=== PATIENT | female | born 1935 | race Caucasian/White ===

== ENCOUNTER → 2016-04-25 | Outpatient (CLI) | payer OTHER ==
[~2016-04-25] MED LIST: GEMF600T3 PO; INSDGI SC; INSU1INJ SC; KFLUNK PO; LRTUNK PO; MELO7.5T5 PO; MULT-506 PO; OLME40TA30 PO; OMEG10007 PO
[2016-04-25 09:43] LABS: HEMATOCRIT 36.6 % (37-47); MEAN CELL VOLUME 96.6 fL (80-100); MEAN CORPUSCULAR HEMOGLOBIN 31.9 pg (25-34); MEAN CORPUSCULAR HGB CONC 33.1 g/dl (32-36); MEAN PLATELET VOLUME 11.9 fL (7.4-10.4); PLATELET COUNT 131 K/uL (130-400); RED BLOOD COUNT 3.79 M/uL (4.2-5.4)
[2016-04-25 09:48] LABS: URINE APPEARANCE CLOUDY (CLEAR); URINE BILIRUBIN NEG (NEG); URINE COLOR YELLOW; URINE EPITHELIAL CELL AUTO >30 /lpf (0-5); URINE NITRITE POS (NEG); URINE SPECIFIC GRAVITY 1.015 (1.000-1.030); UROBILINOGEN NEG (NEG)
[2016-04-25 09:51] LABS: MANUAL MICROSCOPIC REQUIRED? NO; REVIEW REQ? YES
[2016-04-25 10:20] LABS: BLOOD UREA NITROGEN 31 mg/dl (7-18); BUN/CREATININE RATIO 16.3 (10-20); CALCIUM 9.5 mg/dl (8.5-10.1); CARBON DIOXIDE 23 mmol/L (21-32); CHLORIDE 109 mmol/L (98-107); GLUCOSE 94 mg/dl (70-99); POTASSIUM 4.8 mmol/L (3.5-5.1); SODIUM 142 mmol/L (136-145)
[2016-04-25 10:21] LABS: PHOSPHORUS 3.6 mg/dl (2.5-4.9)
[2016-04-25 10:25] LABS: URINE PROTIEN/CREAT RATIO 0.1 (0-0.2); URINE TOTAL PROTEIN 18.8 mg/dl (0-11.9)
== END | disposition home or self-care (01) ==
LOC: C.LAB1850 08:34
PROVIDERS: ATTEND Internal Medicine Nephrology
DX: I10 Essential (primary) hypertension (principal); N18.3 Chronic kidney disease, stage 3 (moderate); R80.9 Proteinuria, unspecified; D64.9 Anemia, unspecified; R60.9 Edema, unspecified

== ENCOUNTER → 2016-10-24 | Outpatient (CLI) | payer OTHER ==
[2016-10-24 09:33] LABS: HEMATOCRIT 38.7 % (37-47); MEAN CELL VOLUME 97.7 fL (80-100); MEAN CORPUSCULAR HEMOGLOBIN 31.8 pg (25-34); MEAN CORPUSCULAR HGB CONC 32.6 g/dl (32-36); MEAN PLATELET VOLUME 11.9 fL (7.4-10.4); PLATELET COUNT 142 K/uL (130-400); RED BLOOD COUNT 3.96 M/uL (4.2-5.4); WHITE BLOOD COUNT 5.47 K/uL (4.8-10.8)
[2016-10-24 09:46] LABS: MANUAL MICROSCOPIC REQUIRED? YES; URINE APPEARANCE SL CLOUDY (CLEAR); URINE BILIRUBIN NEG (NEG); URINE COLOR YELLOW; URINE NITRITE POS (NEG); URINE SPECIFIC GRAVITY 1.025 (1.000-1.030); UROBILINOGEN NEG (NEG)
[2016-10-24 09:49] LABS: REVIEW REQ? NO
[2016-10-24 09:51] LABS: ESTIMATED AVERAGE GLUCOSE 128 mg/dl; HA1C FLAG Normal (Normal)
[2016-10-24 09:59] LABS: URINE PROTIEN/CREAT RATIO 0.2 (0-0.2); URINE TOTAL PROTEIN 29.3 mg/dl (0-11.9)
[2016-10-24 10:28] LABS: ALT/SGPT 34 U/L (12-78); AST/SGOT 29 U/L (15-37); BLOOD UREA NITROGEN 37 mg/dl (7-18); BUN/CREATININE RATIO 21.5 (10-20); CALCIUM 9.7 mg/dl (8.5-10.1); CARBON DIOXIDE 23 mmol/L (21-32); CHLORIDE 110 mmol/L (98-107); GLUCOSE 103 mg/dl (70-99); POTASSIUM 4.9 mmol/L (3.5-5.1); SODIUM 141 mmol/L (136-145)
[2016-10-24 10:38] LABS: URINE WBC >30 /hpf (0-5)
[2016-10-24 10:39] LABS: URINE BACTERIA 4+ (NEG)
[2016-10-24 10:40] LABS: CHOLESTEROL 163 mg/dl (0-200); CHOLESTEROL/HDL RATIO 4.8; HDL CHOLESTEROL 34 mg/dl; LDL CHOLESTEROL CALCULATED 73 mg/dl; PHOSPHORUS 4.5 mg/dl (2.5-4.9); TRIGLYCERIDES 278 mg/dl (0-150); VERY LOW DENSITY LIPOPROT CALC 56 mg/dl
== END | disposition home or self-care (01) ==
LOC: C.LAB1850 07:29
PROVIDERS: ATTEND Internal Medicine Nephrology
DX: E78.5 Hyperlipidemia, unspecified (principal); E11.9 Type 2 diabetes mellitus without complications; E03.9 Hypothyroidism, unspecified; N18.3 Chronic kidney disease, stage 3 (moderate); I12.9 Hypertensive chronic kidney disease with stage 1 through stage 4 chronic kidney disease, or unspecified chronic kidney disease; D64.9 Anemia, unspecified; R60.9 Edema, unspecified; E55.9 Vitamin D deficiency, unspecified

== ENCOUNTER → 2017-03-04 | Outpatient (CLI) | payer OTHER ==
--- NOTE | 2017-03-04 15:13 | MAMMOGRAPHY REPORT ---
UNILATERAL LEFT DIGITAL SCREENING MAMMOGRAM TOMOSYNTHESIS WITH CAD: 03/04/2017 CLINICAL HISTORY: Asymptomatic. Personal history of breast cancer. Post right mastectomy. TECHNIQUE: Left breast tomosynthesis in addition to standard 2D mammography was performed. Current st udy was also evaluated with a Computer Aided Detection (CAD) system. COMPARISON: Comparison is made to exams dated: 02/27/2016 mammogram, 02/23/2015 mammogram, 4 mammogram, 02/19/2013 mammogram, 02/19/2012 mammogram, and 02/13/2011 mammogram - [facility]. BREAST COMPOSITION: There are scattered areas of fibroglandular density in the left breast. FINDINGS: There are stable benign-appearing round and punctate microcalcifications in the left breas t. Stable nodularity in the lateral breast. No new suspicious mass, architectural distortion or clus ter of microcalcifications is seen. IMPRESSION: ACR BI-RADS CATEGORY 2: BENIGN There is no mammographic evidence of malignancy. A 1 year screening mammogram is recommended. The pa tient will receive written notification of the results. Approximately 10% of breast cancers are not detected with mammography. A negative mammographic report should not delay biopsy if a clinically suggestive mass is present. Gema Nelson M.D. ay/:03/04/2017 12:15:49 Brazing Machine Feeder: Rhonda Leon M, [facility] letter sent: Normal 1/2 BI-RADS Code: ACR BI-RADS Category 2: Benign
== END | disposition home or self-care (01) ==
LOC: C.MAMM 10:16
PROVIDERS: ATTEND Internal Medicine
DX: Z12.31 Encounter for screening mammogram for malignant neoplasm of breast (principal); Z90.11 Acquired absence of right breast and nipple

== ENCOUNTER → 2017-04-25 | Outpatient (CLI) | payer OTHER ==
[2017-04-25 09:41] LABS: HEMATOCRIT 37.8 % (37-47); HEMOGLOBIN 12.5 g/dL (12.0-16.0); MEAN CELL VOLUME 96.2 fL (80-100); MEAN CORPUSCULAR HEMOGLOBIN 31.8 pg (25-34); MEAN CORPUSCULAR HGB CONC 33.1 g/dl (32-36); MEAN PLATELET VOLUME 11.9 fL (7.4-10.4); PLATELET COUNT 145 K/uL (130-400); RED CELL DISTRIBUTION WIDTH CV 13.2 % (11.5-14.5); RED CELL DISTRIBUTION WIDTH SD 46.1 fL (36.4-46.3); WHITE BLOOD COUNT 5.65 K/uL (4.8-10.8)
[2017-04-25 09:48] LABS: ALBUMIN 3.9 gm/dl (3.4-5.0); ALT/SGPT 38 U/L (12-78); AST/SGOT 35 U/L (15-37); BLOOD UREA NITROGEN 51 mg/dl (7-18); CALCIUM 9.5 mg/dl (8.5-10.1); CARBON DIOXIDE 23 mmol/L (21-32); CHOLESTEROL 168 mg/dl (0-200); GLUCOSE 67 mg/dl (70-99); POTASSIUM 4.5 mmol/L (3.5-5.1); SODIUM 137 mmol/L (136-145)
[2017-04-25 09:50] LABS: HEMOGLOBIN A1C 5.9 % (4.5-5.6)
[2017-04-25 09:58] LABS: LDL CHOLESTEROL CALCULATED 91 mg/dl; PHOSPHORUS 4.1 mg/dl (2.5-4.9)
== END | disposition home or self-care (01) ==
LOC: C.LAB1850 07:43
PROVIDERS: ATTEND Internal Medicine Nephrology
DX: I12.9 Hypertensive chronic kidney disease with stage 1 through stage 4 chronic kidney disease, or unspecified chronic kidney disease (principal); E11.22 Type 2 diabetes mellitus with diabetic chronic kidney disease; N18.3 Chronic kidney disease, stage 3 (moderate); D63.1 Anemia in chronic kidney disease; R60.9 Edema, unspecified; E55.9 Vitamin D deficiency, unspecified; E03.9 Hypothyroidism, unspecified; E78.5 Hyperlipidemia, unspecified

== ENCOUNTER → 2017-11-25 | Outpatient (CLI) | payer OTHER ==
[~2017-11-25] MED LIST changes: -GEMF600T3 PO; +GEMF600T5 PO
[2017-11-25 09:58] LABS: HEMOGLOBIN A1C 5.7 % (4.5-5.6)
[2017-11-25 09:59] LABS: ALBUMIN 3.4 gm/dl (3.4-5.0); BLOOD UREA NITROGEN 37 mg/dl (7-18); CALCIUM 9.3 mg/dl (8.5-10.1); CARBON DIOXIDE 21 mmol/L (21-32); CREATININE 1.89 mg/dl (0.60-1.20); GLUCOSE 101 mg/dl (70-99); PHOSPHORUS 3.8 mg/dl (2.5-4.9); POTASSIUM 5.6 mmol/L (3.5-5.1); SODIUM 140 mmol/L (136-145)
== END | disposition home or self-care (01) ==
LOC: C.LAB1850 07:34
PROVIDERS: ATTEND Internal Medicine Nephrology
DX: I10 Essential (primary) hypertension (principal); N18.3 Chronic kidney disease, stage 3 (moderate); D64.9 Anemia, unspecified; R60.9 Edema, unspecified; E55.9 Vitamin D deficiency, unspecified; E11.9 Type 2 diabetes mellitus without complications

== ENCOUNTER 2018-09-10 16:04 | Inpatient (IN) ==
[2018-09-10] MEDS ORDERED: ONDANSETRON INJ 2 MG/ML 2 ML VIAL IV STA (16:10)
[2018-09-10] MEDS ORDERED: SODIUM CHLORIDE 0.9% 500 ML IV SCH (16:15)
--- NOTE | 2018-09-10 16:29 | XRay Report ---
SINGLE VIEW CHEST CLINICAL HISTORY: Atypical chest pain. Upper abdominal pain. FINDINGS: An AP, portable, upright chest radiograph is compared to study dated 02/23/2018 and correla kate with chest CT dated 08/01/2006. The heart is enlarged. The pulmonary vasculature is noncongested. Airspace opacities are similar left lung base and likely represent atelectasis. The right lung appear s clear. No large pleural effusion or pneumothorax is seen. The skeletal structures are osteopenic. T he bony thorax is grossly intact. Degenerative change is noted in the thoracic spine. IMPRESSION: 1. Cardiomegaly without radiographic evidence of congestive failure. 2. Airspace opacities at the left lung base likely represent atelectasis. Clinical correlation will b e required. Electronically signed by: Geoffrey Hall M.D. 09/10/2018 4:27 PM
[2018-09-10] MEDS: MoRPHine SULFATE 4 MG/ML 1 ML CARP\\VIAL IV PRN ×3 (17:01→22:31)
[2018-09-10 17:05] LABS: Hematocrit (blood only) 35.2 % (37-47); Hemoglobin 11.5 g/dL (12.0-16.0); Mean Corpuscular Hgb Conc 32.7 g/dL (32-36); Mean Corpuscular Volume 95.7 fL (80-100); Mean Platelet Volume 10.8 fL (7.4-10.4); Platelet Count 150 K/uL (130-400); RDW Coefficient of Variation 13.4 % (11.5-14.5); RDW Standard Deviation 46.6 fL (36.4-46.3); Red Blood Count 3.68 M/uL (4.2-5.4); White Blood Count 8.52 K/uL (4.8-10.8)
[2018-09-10 17:19] LABS: INR 1.1 (0.9-1.1); Partial Thromboplastin Ratio 0.9; Partial Thromboplastin Time 24.5 Seconds (21.0-31.0); Prothrombin Time 11.4 Seconds (9.0-12.0)
[2018-09-10 17:24] LABS: Alanine Aminotransferase 54 U/L (12-78); Albumin Level 3.5 gm/dl (3.4-5.0); Aspartate Aminotransferase 150 U/L (15-37); Blood Urea Nitrogen 38 mg/dl (7-18); Calcium 9.6 mg/dl (8.5-10.1); Carbon Dioxide 26 mmol/L (21-32); Chloride 107 mmol/L (98-107); Creatinine Clr Calc Pharmacy 24.4 ml/min; Est GFR (African American) 24.8; Est GFR (Non-African American) 21.4; Glucose 108 mg/dl (70-99); Potassium 5.6 mmol/L (3.5-5.1); Sodium 140 mmol/L (136-145)
[2018-09-10 17:30] LABS: Basophils # (auto) 0.01 K/uL (0-0.2); Basophils % (auto) 0.1 %; Eosinophils # (auto) 0.02 K/uL (0-0.5); Eosinophils % (auto) 0.2 %; Immature Granulocytes # (auto) 0.02 K/uL (0.00-0.02); Immature Granulocytes % (auto) 0.2 %; Lymphocytes # (auto) 0.91 K/uL (1.2-3.4); Lymphocytes % (auto) 10.7 %; Monocytes # (auto) 0.21 K/uL (0.11-0.59); Monocytes % (auto) 2.5 %; Neutrophils # (auto) 7.35 K/uL (1.4-6.5); Neutrophils % (auto) 86.3 %
--- NOTE | 2018-09-10 17:35 | CT Scan Report ---
CT OF THE ABDOMEN AND PELVIS WITHOUT CONTRAST CLINICAL HISTORY: Upper abdominal pain. COMPARISON STUDY: CT of the abdomen November 30, 2009. TECHNIQUE: Axial images of the abdomen and pelvis were obtained without IV contrast. Images were revi ewed in the axial, sagittal, and coronal planes. Automated exposure control was utilized for the yaritza dy. A dose lowering technique was utilized adhering to the principles of ALARA. FINDINGS: The patient is status post right mastectomy. There is moderate cardiomegaly. No pneumatosis , free air or portal venous gas is present. Evaluation of the abdomen and pelvis is suboptimal on thi s unenhanced study. Unenhanced images of the liver, spleen and adrenal glands are unremarkable. There is no biliary or pancreatic ductal dilatation. There is moderate distention of the gallbladder witho ut pericholecystic infiltration. There is extensive peripancreatic infiltration and fluid which exten ds into the mesentery. No peripancreatic fluid collection is present. Evaluation of the pancreas is s uboptimal on this unenhanced study. No radiopaque stones within the gallbladder or common bile duct a re identified. The appendix is normal. There is no evidence for a bowel obstruction. 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 There i s atrophy of the visualized left thigh musculature. No lymphadenopathy is present. IMPRESSION: 1. Extensive peripancreatic infiltration and fluid consistent with acute pancreatitis. 2. Moderate distention of the gallbladder. No pericholecystic infiltration. No biliary ductal dilatat ion. Electronically signed by: Stanley Kwong M.D. 09/10/2018 5:34 PM
[2018-09-10] MEDS ORDERED: PIPERACILLIN/TAZOBACTAM 4.5 GM/120 ML BAG IV ONE (17:43)
[2018-09-10] MEDS ORDERED: SODIUM CHLORIDE 0.9% 1000ML 1,000 ML IV ONE (17:43)
[2018-09-10] MEDS ORDERED: PIPERACILL/TAZOBAC CONSULT ACTIVE PRN (17:43)
[2018-09-10 17:46] LABS: Albumin Globulin Ratio 0.9 (0.9-2); Alkaline Phosphatase 85 U/L (45-117); Bilirubin,Total 1.4 mg/dl (0.2-1); Globulin 3.9 gm/dl (2.5-4.0); Total Protein 7.4 gm/dl (6.4-8.2); Troponin I < 0.015 ng/ml (0-0.045)
[2018-09-10] MEDS ORDERED: FAMOTIDINE 20MG IV PUSH 20 MG/5 ML SYR IV STA (17:47)
--- NOTE | 2018-09-10 18:23 | Emergency Department Note ---
Entered by Margarita Andres acting as a scribe for Narinder Guzmán DO History of Present Illness General Chief complaint: Abdominal Pain Source: patient Limitations: no limitations History of Present Illness Onset (ago): hour(s) 5 Location: abdomen Severity: severe Pain Consistency: + constant Quality: + other ("blowing up") Associated symptoms: + denies other symptoms (new lower extremity rashes) Treatments prior to arrival: other ( Zofran and Fentanyl ) The patient is an 83 year old female who presents to the ED with complaints of severe abdominal pain that began at 1030 this morning, about 5 hours ago. She notes that the pain is constant. The patient described the pain as "blowing up." She denies any new lower extremity rashes. Per EMS, the patient was given Zofran and Fentanyl [employer]CH[employer]. She denies any history of SBO or abdominal surgery. Home Medications Home Medications Medication Instructions Recorded Confirmed Type Multi-Vitamin HP/Minerals 1 cap PO QAM 02/23/18 09/10/18 History cholecalciferol (vitamin D3) 2,000 unit PO 3XWK 02/23/18 09/10/18 History [Vitamin D3] gabapentin 200 mg PO HS 02/23/18 09/10/18 History gemfibrozil 600 mg PO QAM 02/23/18 09/10/18 History levothyroxine 75 mcg PO QAM 02/23/18 09/10/18 History olmesartan 40 mg PO QAM 02/23/18 09/10/18 History omega 5-zet-fjl-fish oil [Fish Oil] 1,000 mg PO QAM 02/23/18 09/10/18 History torsemide 10 mg PO QAM 02/23/18 09/10/18 History torsemide 20 mg PO QAM 02/23/18 09/10/18 History acetaminophen [Mapap 650 mg PO Q4H PRN #1 tab 02/26/18 09/10/18 Rx (acetaminophen)] aspirin [Aspirin Low Dose] 81 mg PO DAILY 09/10/18 09/10/18 History insulin NPH and regular human 60 unit SUBCUT BID 09/10/18 09/10/18 History [Novolin 70/30 U-100 Insulin] Allergies Allergy/AdvReac Type Severity Reaction Status Date / Time Sulfa (Sulfonamide Allergy Unknown BLISTERS Verified 09/10/18 17:40 Antibiotics) Past Med/Surg History Medical History Cellulitis of left lower extremity (Acute) Pancreatitis (Acute) Acute kidney injury Neuropathy Chronic kidney disease, stage IV (severe) Acute UTI (Acute) Sepsis (Acute) Chronic venous insufficiency Diabetes mellitus (Chronic) Hypertension Hypothyroidism (acquired) Hypertriglyceridemia Cellulitis of right upper extremity Cellulitis of left lower extremity Social History Preferred Language: Argentine Communication Ability: Effective Sock Lining Stitcher Required: No Beliefs That Will Affect Care: None marital status: Current Living Situation: Spouse Other Information That Helps Us Care for You: No Feels Safe at Home: Yes Safety Concerns: Feels Safe At This Time Smoking Status: Never smoker Do You Dip or Chew Tobacco: No Second Hand Exposure: No Tobacco Cessation Education Requested by Patient: No Hx Alcohol Use: No Hx Substance Use: No Review of Systems See HPI for pertinent positives & negatives. and A total of 10 systems reviewed and were otherwise negative Physical Exam Vital Signs Vital Signs - 24 hr 09/10/18 16:04 09/10/18 16:14 09/10/18 17:00 Temperature 36.5 C Temperature Source Oral Sepsis Recent Fever Within 48 Hours No Sepsis New/Unexplained Change in Mental Status No Sepsis Action Taken by Nursing No Action Required Pulse Rate 70 64 70 Pulse Rate [Left Apical] Pulse Rate from SpO2 Sensor 66 Pulse Rhythm Regular Regular Pulse Rhythm [Left Apical] Pulse Strength [Left Apical] Respiratory Rate 18 20 18 Respiratory Effort / Characteristics Non-Labored Spontaneous Respiratory Depth Normal Respiratory Pattern Regular Blood Pressure 157/60 H 157/60 H Blood Pressure [Left Arm] Blood Pressure Mean 92 92 Blood Pressure Mean [Left Arm] Blood Pressure Position [Left Arm] Pulse Oximetry 95 92 95 Oxygen Delivery Method Room Air Room Air Room Air 09/10/18 17:06 09/10/18 17:53 09/10/18 18:01 Temperature Temperature Source Sepsis Recent Fever Within 48 Hours Sepsis New/Unexplained Change in Mental Status Sepsis Action Taken by Nursing Pulse Rate 62 85 82 Pulse Rate [Left Apical] 85 Pulse Rate from SpO2 Sensor 64 Pulse Rhythm Pulse Rhythm [Left Apical] Regular Pulse Strength [Left Apical] Normal Respiratory Rate 17 22 20 Respiratory Effort / Characteristics Non-Labored Spontaneous Respiratory Depth Normal Respiratory Pattern Regular Blood Pressure 144/55 H 154/67 H 148/76 H Blood Pressure [Left Arm] 154/67 H Blood Pressure Mean 84 96 100 Blood Pressure Mean [Left Arm] 96 Blood Pressure Position [Left Arm] Lying Pulse Oximetry 92 95 95 Oxygen Delivery Method Room Air Room Air Room Air 09/10/18 18:31 Temperature Temperature Source Sepsis Recent Fever Within 48 Hours Sepsis New/Unexplained Change in Mental Status Sepsis Action Taken by Nursing Pulse Rate 71 Pulse Rate [Left Apical] Pulse Rate from SpO2 Sensor Pulse Rhythm Pulse Rhythm [Left Apical] Pulse Strength [Left Apical] Respiratory Rate 20 Respiratory Effort / Characteristics Respiratory Depth Respiratory Pattern Blood Pressure 156/77 H Blood Pressure [Left Arm] Blood Pressure Mean 103 Blood Pressure Mean [Left Arm] Blood Pressure Position [Left Arm] Pulse Oximetry 95 Oxygen Delivery Method Room Air GENERAL: Patient is awake, alert, and in no acute distress.Patient is uncomfort able appearing. She appears to be in significant pain. EYES: The conjunctivae are clear. The pupils are round and reactive. EARS, NOSE, MOUTH AND THROAT: The nose is without any evidence of any deformity. Mucous membranes are moist.Tongue is midline NECK: The neck is nontender and supple. RESPIRATORY: Normal respiratory effort is noted. There is no evidence of wheezing rhonchi or rales to auscultation. CARDIOVASCULAR: Regular rate and rhythm noted. There no murmurs rubs or gallops normal S1 normal S2 GASTROINTESTINAL: The abdomen is soft. Bowel sounds are present in all quadrants. Moderately distended and diffusely tender. Guarding to the epigastric region and RUQ. MUSCULOSKELETAL/EXTREMITIES: There is no evidence of gross deformity. Full range of motion is noted in the hips and shoulders. SKIN: There is no obvious evidence of any rash. There are no petechiae, pallor or cyanosis noted. Pedal edema bilaterally with venous stasis changes, left greater than right. NEUROLOGIC: Patient is awake alert and oriented x3. Course 1604: The patient was evaluated in room C01B. A complete history and physical exam was performed. 1648: I reassessed the patient. 1723: I spoke with Dr. Pandey, [facility] hospitalist, about the patients case. He will further evaluate the patient. Consultations Consultation #1: I spoke with Dr. Pandey, [facility] hospitalist, about the patients case. He will further evaluate the patient. Time: 17:23 Administered Medications Heparin Sodium (Porcine) (Heparin Sodium (Porcine)) 5,000 units SQ Q12 MALIK Stop: 10/10/18 20:59 Last Admin: 09/10/18 22:31 Dose: 5,000 units Documented by: [id number] Cosigned by: [id number] Sodium Chloride (Nss 1000ml) 1,000 mls @ 150 mls/hr IV .Q6H40M MALIK Stop: 10/10/18 21:14 Last Admin: 09/10/18 21:42 Dose: 150 mls/hr Documented by: [id number] Morphine Sulfate (Morphine Sulfate) 3 mg IV Q2H PRN PRN Reason: Pain Stop: 09/24/18 20:08 Last Admin: 09/10/18 22:31 Dose: 3 mg Documented by: [id number] Discontinued Medications Sodium Chloride (Nss) 500 mls @ 999 mls/hr IV .Q31M MALIK Stop: 09/10/18 16:45 Last Infusion: 09/10/18 17:57 Dose: 0 mls/hr Documented by: [id number] Admin: 09/10/18 17:01 Dose: 999 mls/hr Documented by: [id number] Sodium Chloride (Nss 1000ml) 1,000 mls @ 999 mls/hr IV .Q1H1M ONE Stop: 09/10/18 18:43 Last Infusion: 09/10/18 20:30 Dose: 0 mls/hr Documented by: [id number] Admin: 09/10/18 19:17 Dose: 999 mls/hr Documented by: [id number] Piperacillin Sod/Tazobactam Sod (Zosyn) 4.5 gm in 120 mls @ 240 mls/hr IV NOW ONE Stop: 09/10/18 18:12 Last Infusion: 09/10/18 20:30 Dose: 0 mls/hr Documented by: [id number] Admin: 09/10/18 19:16 Dose: 240 mls/hr Documented by: [id number] Famotidine (Pepcid 20mg Iv Push) 20 mg in 5 mls @ 2.5 mls/min IV NOW STA Stop: 09/10/18 17:48 Last Admin: 09/10/18 19:17 Dose: 2.5 mls/min Documented by: [id number] Morphine Sulfate (Morphine Sulfate) 4 mg IV Q15M PRN PRN Reason: Pain Stop: 09/24/18 16:09 Last Admin: 06/05/19 19:17 Dose: 4 mg Documented by: [id number] Admin: 09/10/18 17:01 Dose: 4 mg Documented by: [id number] Ondansetron HCl (Zofran) 4 mg IV NOW STA Stop: 09/10/18 16:11 Last Admin: 09/10/18 17:01 Dose: 4 mg Documented by: [id number] Medical Decision Making Differential Diagnosis Etiologies such as biliary colic, cholecystitis, hepatitis, perihepatitis, pancreatitis, cardiac disease, pancreatitis, gastritis, peptic ulcer disease, appendicitis, ovarian cyst, ovarian torsion, ectopic , pelvic inflammatory disease, cystitis, diverticulitis, mesenteric ischemia, inflammatory bowel disease, ileus, bowel obstruction, aortic pathology, sh ingles, as well as others were considered. Medical Records Attestation: I reviewed the patient's medical records. Home Medications Current Medication List: was personally reviewed by me Laboratory Data Attestation: I reviewed the patient's lab results. Result diagrams: 09/10/18 16:58 09/10/18 16:58 Lab Results 09/10/18 09/10/18 09/10/18 Range/Units 16:58 16:58 16:58 WBC 8.52 (4.8-10.8) K/uL RBC 3.68 L (4.2-5.4) M/uL Hgb 11.5 L (12.0-16.0) g/dL Hct 35.2 L (37-47) % MCV 95.7 (80-100) fL MCH 31.3 (25-34) pg MCHC 32.7 (32-36) g/dL RDW Std Deviation 46.6 H (36.4-46.3) fL RDW Coeff of Brian 13.4 (11.5-14.5) % Plt Count 150 (130-400) K/uL MPV 10.8 H (7.4-10.4) fL Immature Gran % (Auto) 0.2 % Neut % (Auto) 86.3 % Lymph % (Auto) 10.7 % Reynolds % (Auto) 2.5 % Eos % (Auto) 0.2 % Baso % (Auto) 0.1 % Immature Gran # (Auto) 0.02 (0.00-0.02) K/uL Neut # (Auto) 7.35 H (1.4-6.5) K/uL Lymph # (Auto) 0.91 L (1.2-3.4) K/uL Reynolds # (Auto) 0.21 (0.11-0.59) K/uL Eos # (Auto) 0.02 (0-0.5) K/uL Baso # (Auto) 0.01 (0-0.2) K/uL PT 11.4 (9.0-12.0) Seconds INR 1.1 (0.9-1.1) APTT 24.5 (21.0-31.0) Seconds PTT Ratio 0.9 Sodium 140 (136-145) mmol/L Potassium 5.6 H (3.5-5.1) mmol/L Chloride 107 (98-107) mmol/L Carbon Dioxide 26 (21-32) mmol/L Anion Gap 7.0 (3-11) BUN 38 H (7-18) mg/dl Creatinine 2.10 H (0.6-1.2) mg/dl Est Cr Clr Drug Dosing 24.4 ml/min Est GFR ( Amer) 24.8 Est GFR (Non-Af Amer) 21.4 BUN/Creatinine Ratio 18.0 (10-20) Glucose 108 H (70-99) mg/dl Calcium 9.6 (8.5-10.1) mg/dl Total Bilirubin 1.4 H (0.2-1) mg/dl AST 150 H (15-37) U/L ALT 54 (12-78) U/L Alkaline Phosphatase 85 (45-117) U/L Troponin I < 0.015 (0-0.045) ng/ml Total Protein 7.4 (6.4-8.2) gm/dl Albumin 3.5 (3.4-5.0) gm/dl Globulin 3.9 (2.5-4.0) gm/dl Albumin/Globulin Ratio 0.9 (0.9-2) Lipase 62926 H (73-393) U/L Imaging Data Radiologist's Impression: Radiology results as stated below per my review and the radiologist's interpretation: SINGLE VIEW CHEST CLINICAL HISTORY: Atypical chest pain. Upper abdominal pain. FINDINGS: An AP, portable, upright chest radiograph is compared to study dated 02/23/2018 and correlated with chest CT dated 08/01/2006. The heart is enlarged. The pulmonary vasculature is noncongested. Airspace opacities are similar left lung base and likely represent atelectasis. The right lung appears clear. No large pleural effusion or pneumothorax is seen. The skeletal structures are osteopenic. The bony thorax is grossly intact. Degenerative change is noted in the thoracic spine. IMPRESSION: 1. Cardiomegaly without radiographic evidence of congestive failure. 2. Airspace opacities at the left lung base likely represent atelectasis. Clinical correlation will be required. Electronically signed by: Geoffrey Hall M.D. 09/10/2018 4:[address] OF THE ABDOMEN AND PELVIS WITHOUT CONTRAST CLINICAL HISTORY: Upper abdominal pain. COMPARISON STUDY: CT of the abdomen November 30, 2009. TECHNIQUE: Axial images of the abdomen and pelvis were obtained without IV contrast. Images were reviewed in the axial, sagittal, and coronal planes. Automated exposure control was utilized for the study. A dose lowering technique was utilized adhering to the principles of ALARA. FINDINGS: The patient is status post right mastectomy. There is moderate cardiomegaly. No pneumatosis, free air or portal venous gas is present. Evaluation of the abdomen and pelvis is suboptimal on this unenhanced study. Unenhanced images of the liver, spleen and adrenal glands are unremarkable. There is no biliary or pancreatic ductal dilatation. There is moderate distention of the gallbladder without pericholecystic infiltration. There is extensive peripancreatic infiltration and fluid which extends into the m esentery. No peripancreatic fluid collection is present. Evaluation of the pancreas is suboptimal on this unenhanced study. No radiopaque stones within the gallbladder or common bile duct are identified. The appendix is normal. There is no evidence for a bowel obstruction. 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 There is atrophy of the visualized left thigh musculature. No lymphadenopathy is present. IMPRESSION: 1. Extensive peripancreatic infiltration and fluid consistent with acute pancreatitis. 2. Moderate distention of the gallbladder. No pericholecystic infiltration. No biliary ductal dilatation. Electronically signed by: Stanley Kwong M.D. 09/10/2018 5:34 PM ECG Data Attestation: I personally reviewed and interpreted this ECG as follows: Indication: abdominal pain Rate (beats per minute): 72 Rhythm: normal sinus Findings: + other (non-specific intraventricular conduction delay ) and + PAC Comparison ECG Date: from (02/23/2018) Change: no significant change Blood Pressure Blood Pressure Findings: Elevated blood pressure Blood Pressure Disposition: further management by hospitalist BONY Paredes The patient is an 83-year-old female who presented to the emergency department for an evaluation of epigastric abdominal pain. The patient had nausea and vomiting prior to arrival. Her symptoms were very severe. The patient received IV pain medication and IV antiemetics by the prehospital personnel via medic command call. The patient further received IV fluids IV pain medication and IV antiemetics in the emergency department. She was also treated with IV antibiotics for presumed pancreatitis in the emergency department. I discussed the patient's laboratory and radiographic studies with her as well as her family members. I also discussed her case with the on-call [facility] hospitalist group. They have agreed to evaluate the patient in the emergency department for further management and disposition. The patient was feeling much better on subsequent reevaluation. Impression & Plan Pancreatitis, Abdominal pain, Nausea & vomiting Discharge Plan Visit Data *Final* Discharge Date/Time: 09/10/18 19:37 Chief Complaint: Abdominal Pain ED Provider: Narinder Guzmán Discharge Problem: Pancreatitis, Abdominal pain, Nausea & vomiting Patient Disposition: Admitted As Inpatient Discharge Instructions Interventions: ED Discharge Assessment Last Done: 09/10/18 19:37 Discharge Problem: Pancreatitis Qualifiers: Chronicity: acute Pancreatitis type: other Acute pancreatitis complication: unspecified Qualified Code(s): K85.80 - Other acute pancreatitis without necrosis or infection Abdominal pain Qualifiers: Abdominal location: unspecified location Qualified Code(s): R10.9 - Unspecified abdominal pain Nausea & vomiting Qualifiers: Vomiting type: unspecified Vomiting Intractability: unspecified Qualified Code(s): R11.2 - Nausea with vomiting, unspecified The scribe's documentation has been prepared under my direction and personally reviewed by me in its entirety. I confirm that the note above accurately reflects all work, treatment, procedures, and medical decision making performed by me.
--- NOTE | 2018-09-10 18:44 | History & Physical Report ---
Date of Service September 10, 2018 Assessment & Plan (1) Pancreatitis: Acute pancreatitis probably of gallbladder etiology. Previous lipids were only mildly elevated. Current triglyceride level pending. She does not consume alcohol. Keep n.p.o. and administer IV fluids. Parenteral narcotics and antiemetics. Serial lab studies. Present on Admission?: Yes (2) Cellulitis of left lower extremity: Continue intravenous Zosyn therapy started in the ED. Present on Admission?: Yes (3) Chronic kidney disease, stage IV (severe): Bhatt catheter to monitor urine output. Serial lab studies (4) Diabetes mellitus: Basal insulin dosage will be decreased by 50%. Sliding scale coverage (5) DVT prophylaxis: Heparin subcu (6) DNR (do not resuscitate): Per patient and family request History of Present Illness Chief Complaint: Epigastric pain, abdominal bloating, nausea Primary Care Provider: Narinder Caldwell MD 83-year-old morbidly obese white female with onset of abdominal pain nausea and distention this morning. Her symptoms progressed and she came to the ED for evaluation. Lipase is greater than 40,[address] scan confirms acute pancreatitis. The gallbladder is distended but does not appear to have acute cholecystitis at this time. C creatinine is 2.1, only slightly higher than baseline. She has chronic kidney disease stage IV. Potassium is 5.6. Serial labs are ordered. She will be kept n.p.o. and given intravenous fluids. Diuret ics will be held. Her usual insulin dosage will be decreased by half and sliding scale coverage will be administered. Allergies Allergy/AdvReac Type Severity Reaction Status Date / Time Sulfa (Sulfonamide Allergy Unknown BLISTERS Verified 09/10/18 17:40 Antibiotics) Home Medications Home Medications Medication Instructions Recorded Confirmed Type Multi-Vitamin HP/Minerals 1 cap PO QAM 02/23/18 09/10/18 History cholecalciferol (vitamin D3) 2,000 unit PO 3XWK 02/23/18 09/10/18 History [Vitamin D3] gabapentin 200 mg PO HS 02/23/18 09/10/18 History gemfibrozil 600 mg PO QAM 02/23/18 09/10/18 History levothyroxine 75 mcg PO QAM 02/23/18 09/10/18 History olmesartan 40 mg PO QAM 02/23/18 09/10/18 History omega 7-zfm-hsa-fish oil [Fish Oil] 1,000 mg PO QAM 02/23/18 09/10/18 History torsemide 10 mg PO QAM 02/23/18 09/10/18 History torsemide 20 mg PO QAM 02/23/18 09/10/18 History acetaminophen [Mapap 650 mg PO Q4H PRN #1 tab 02/26/18 09/10/18 Rx (acetaminophen)] aspirin [Aspirin Low Dose] 81 mg PO DAILY 09/10/18 09/10/18 History insulin NPH and regular human 60 unit SUBCUT BID 09/10/18 09/10/18 History [Novolin 70/30 U-100 Insulin] Past Med/Surg History Medical History Acute kidney injury Neuropathy Chronic kidney disease, stage IV (severe) Acute UTI (Acute) Sepsis (Acute) Chronic venous insufficiency Diabetes mellitus Hypertension Hypothyroidism (acquired) Hypertriglyceridemia Cellulitis of right upper extremity Cellulitis of left lower extremity Social History Preferred Language: Guatemalan Communication Ability: Effective Beliefs That Will Affect Care: None marital status: Current Living Situation: Spouse Feels Safe at Home: Yes Smoking Status: Never smoker Hx Alcohol Use: No Hx Substance Use: No Review of Systems Review of Systems: Constitutional-no fever or chills ENT-no blurred vision, no double vision, no epistaxis, no sore throat Respiratory-no cough, no wheezing, no shortness of breath Cardiac-no palpitations, no chest pain, no syncope GI-no vomiting, diarrhea, melena, hematochezia. She does have nausea and abdominal distention -no urinary retention, no urinary incontinence, no dysuria, no hematuria Musculoskeletal-no joint pain, no muscle tenderness Skin-no bruising, no rashes, no pruritus Neuro-no isolated weakness, no paresthesia, no weakness Psych-no depression, no anxiety Physical Exam Physical Exam: General-alert and oriented x3, no fevers, no chills HEENT-head atraumatic and normocephalic, TMs intact bilaterally, pupils equal and reactive to light, extraocular muscles intact Neck-no lymphadenopathy or thyromegaly, trachea midline Chest-clear to auscultation percussion. No rales wheezing or rhonchi Cardiac-regular rate and rhythm, normal S1 and S2. Frequent premature beats Abdomen-distended with absent bowel sounds. Diffusely tender. No overt rebound or guarding. Extremities-she has chronic venous stasis and chronic lower extremity edema. Diffuse erythema and superficial ulcerations around the left lower extremity below the knee. She appears to have a cellulitis in this area. Neuro-cranial nerves II through XII intact, motor and sensory function within normal limits, strength symmetrical , no focal deficits Psych-normal affect, normal mood Results & Data Vital Signs (Past 12 Hours) Vital Signs Temp Pulse Pulse Resp BP BP Pulse Ox 09/10/18 17:53 85 21 154/67 H 09/10/18 17:06 62 17 144/55 H 92 09/10/18 17:00 70 18 95 09/10/18 16:14 64 20 157/60 H 92 09/10/18 16:04 36.5 C 70 18 157/60 H 95 Laboratory Results 09/10/18 16:58 09/10/18 16:58 (1) Pancreatitis Acute pancreatitis complication: unspecified Chronicity: acute Pancreatitis type: other Qualified Code(s): K85.80 - Other acute pancreatitis without necrosis or infection
[2018-09-10] MEDS ORDERED: ONDANSETRON INJ 2 MG/ML 2 ML VIAL IV PRN (20:09)
[2018-09-10 20:55] LABS: Appearance Urine Clear (Clear); Bilirubin Urine Negative (Negative); Blood Urine Negative (Negative); Color Urine Yellow; Glucose Urine UA Negative (Negative); Ketones Urine Negative (Negative); Leukocyte Esterase Urine Negative (Negative); Nitrite Urine Negative (Negative); Protein Urine Negative (Negative); Specific Gravity Urine 1.016 (1.000-1.030); Urobilinogen Urine Negative (Negative); pH Urine 5.5 (4.5-7.5)
[2018-09-10] MEDS ORDERED: FAMOTIDINE 20 MG in SYRINGE 3 ML IV SCH (21:00)
[2018-09-10 21:14] LABS: Chol HDL Ratio 5; Cholesterol 133 mg/dl (0-200); HDL Cholesterol 25 mg/dl; LDL Cholesterol Calculated 72 mg/dl; Triglycerides 181 mg/dl (0-150); VLDL Cholesterol 36 mg/dl
[2018-09-10] MEDS ORDERED: GLUCAGON FOR INJ 1 MG VIAL IM PRN (21:15)
[2018-09-10] MEDS ORDERED: GLUCOSE 10 TABS/TUBE PO PRN (21:15)
[2018-09-10] MEDS ORDERED: CARBOHYDRATES FOR HYPOGLYCEMIA PO PRN (21:15)
[2018-09-10] MEDS ORDERED: GLUCOSE 40% GEL 15 GM TUBE PO PRN (21:15)
[2018-09-10] MEDS ORDERED: DEXTROSE 50% 50 ML SYRINGE IV PRN (21:15)
[2018-09-10] MEDS: SODIUM CHLORIDE 0.9% 1000ML 1,000 ML IV SCH (21:42)
[2018-09-10] MEDS: HEPARIN SOD 5,000 UNIT/0.5 ML VIAL SQ SCH (22:31)
[2018-09-11] MEDS: PIPERACILLIN/TAZOBACTAM 4.5 GM in DEXTROSE 5% 100 ML IV SCH ×4 (00:11→23:10)
[2018-09-11] MEDS: SODIUM CHLORIDE 0.9% 1000ML 1,000 ML IV SCH ×4 (04:20→21:14)
[2018-09-11] MEDS: MoRPHine SULFATE 4 MG/ML 1 ML CARP\\VIAL IV PRN ×3 (04:24→13:18)
--- NOTE | 2018-09-11 07:24 | Family Medicine Progress Note ---
Date of Service September 11, 2018 Assessment & Plan (1) Pancreatitis: Ms. Mike is a 83 year old female with a past medical history of CKD stage 4, breast cancer s/p mastectomy in 2000, diabetes mellitus, hypothyroidism, chronic venous insufficiency and peripheral neuropathy who presents to [facility] with sudden onset abdominal pain. Acute Pancreatitis - admission lipase level of 42k and CT abdomen/pelvis findings consistent w/acute pancreatitis - no recent alcohol use, no medications that may cause pancreatitis, triglycerides 181 (not high enough to contribute) - biliary U/S and MRCP show -> dilation of CBD measuring 8mm, cholelithiasis but no acute cholecystitis, edematous pancreas - GI consulted, thank you for recommendations -> continue IVF, antiemetics and pain management -> trend lipase -> recommend general surgery consult -General surgery consulted -> recommend cholecystectomy once recovered from acute pancreatitis -pt made NPO, receiving NS at 125 mls/hr -morphine 3mg IV q2h prn pain and zofran 4mg IV q6h prn nausea Acute Kidney Injury on a background of Chronic CKD, Stage 4 -baseline creatinine is 1.7 -elevated to 2.1 on admission -continue to trend BMP, hold nephrotoxic medications Cellulitis of left lower extremity/Underlying venous stasis changes -pt will elevated WCC of 11.49 -continue IV zosyn, can switch to PO abx once no longer NPO Hyperkalemia -potassium level 5.7 today -likely related to kidney disease -monitor on telemetry, trend BMP Diabetes Mellitus -takes insulin at home, regimen decreased by half -holding home gabapentin and aspirin given NPO Dyslipidemia -holding home gemfibrozil Hypothyroidism -restart levothyroxine when no longer NPO Hypertension -hold home olmesartan and torsemide Code status: DNR/DNI DVT Prophylaxis: heparin 5,000 BID Disposition: remains on telemetry (2) Cellulitis of left lower extremity: (3) Chronic kidney disease, stage IV (severe): (4) Diabetes mellitus: (5) DVT prophylaxis: (6) DNR (do not resuscitate): Supervising Physician Co-Signing Physician Notes Resident Physician Supervision Note: I independently interviewed and examined the patient and verified the brooks history and physical, reviewed labs and image studies, discussed the case with the resident Dr. Solares and agree with the findings and care plan. Subjective Ms. Mike reports that she does not have pain if she lays still, but that if she moves or coughs, she has severe abdominal pain. She denies any recent medication changes, alcohol use, steroid use, or history of gallstones. She states that this is the first time she has ever had pancreatitis. She denies nausea or vomiting, but reports a dry mouth. Review of Systems Constitutional: no fever and no chills Respiratory: + cough (longstanding); no dyspnea Cardiovascular: + edema; no chest pain and no palpitations Gastrointestinal: + abdominal pain; no nausea, no vomiting and no change in bowel habits Physical Exam Constitutional: + obese comfortable when laying still, appears uncomfortable with movement Respiratory: Auscultation: lungs clear to auscultation bilaterally and + diminished lung sounds Cardiovascular: Rate/Rhythm: regular rate and regular rhythm b/l leg edema Gastrointestinal (Abdomen): Percussion/Palpation: + abdomen tender (extremely tender throughout abdomen) and abdomen soft; abdomen not rigid Skin: left calf erythematous, tender and hot to touch w/clear fluid draining Results & Data Vital Signs (Past 12 Hours) Vital Signs Temp Pulse Pulse Pulse Resp BP Pulse Ox 09/11/18 04:38 37.1 C 86 18 149/71 H 93 09/10/18 23:19 36.7 C 81 17 154/68 H 92 09/10/18 22:20 75 09/10/18 20:04 92 H 09/10/18 20:00 36.6 C 84 22 168/91 H 92 09/10/18 19:35 77 20 142/67 H 95 Resident Activity Tracking Resident Involvement: Resident Care Provided Care Provided: Adult Hospital Medicine (1) Pancreatitis Acute pancreatitis complication: unspecified Chronicity: acute Pancreatitis type: other Qualified Code(s): K85.80 - Other acute pancreatitis without necrosis or infection
[2018-09-11] MEDS: INSULIN HUMAN 70% NPH/30% REGULAR SQ SCH ×2 (07:31→16:45)
[2018-09-11] MEDS: HEPARIN SOD 5,000 UNIT/0.5 ML VIAL SQ SCH ×2 (07:31→21:17)
[2018-09-11 08:06] LABS: Hematocrit (blood only) 34.7 % (37-47); Hemoglobin 11.5 g/dL (12.0-16.0); Mean Corpuscular Hgb Conc 33.1 g/dL (32-36); Mean Corpuscular Volume 96.7 fL (80-100); Mean Platelet Volume 11.1 fL (7.4-10.4); Platelet Count 155 K/uL (130-400); RDW Coefficient of Variation 13.6 % (11.5-14.5); RDW Standard Deviation 47.6 fL (36.4-46.3); Red Blood Count 3.59 M/uL (4.2-5.4); White Blood Count 11.49 K/uL (4.8-10.8)
[2018-09-11 08:30] LABS: Basophils # (auto) 0.01 K/uL (0-0.2); Basophils % (auto) 0.1 %; Eosinophils # (auto) 0.06 K/uL (0-0.5); Eosinophils % (auto) 0.5 %; Immature Granulocytes # (auto) 0.04 K/uL (0.00-0.02); Immature Granulocytes % (auto) 0.3 %; Lymphocytes # (auto) 1.11 K/uL (1.2-3.4); Lymphocytes % (auto) 9.7 %; Monocytes # (auto) 0.36 K/uL (0.11-0.59); Monocytes % (auto) 3.1 %; Neutrophils # (auto) 9.91 K/uL (1.4-6.5); Neutrophils % (auto) 86.3 %
[2018-09-11 08:44] LABS: Albumin Level 2.8 gm/dl (3.4-5.0); BUN Creatinine Ratio 16.6 (10-20); Calcium 8.1 mg/dl (8.5-10.1); Creatinine Clr Calc Pharmacy 25.5 ml/min; Est GFR (African American) 25.8; Est GFR (Non-African American) 22.3; Potassium 5.7 mmol/L (3.5-5.1)
[2018-09-11 08:47] LABS: Albumin Globulin Ratio 0.8 (0.9-2); Bilirubin,Total 0.9 mg/dl (0.2-1); Globulin 3.6 gm/dl (2.5-4.0); Total Protein 6.4 gm/dl (6.4-8.2)
--- NOTE | 2018-09-11 11:10 | Gastrointestinal Consultation ---
Date of Consultation September 11, 2018 Assessment & Plan (1) Pancreatitis: (2) Abdominal pain: (3) Nausea & vomiting: Diff dx: idiopathic vs gall bladder vs medication induced vs alcohol (denies use) vs other. In that regard will order a biliary ultrasound. Recommend continued supportive care with IV fluid resuscitation, antiemetics, analgesics. Per guidelines, no role for IV antibiotics at this time. Continue NPO status for now. Continue to trend lipase. Additional recommendations will be made pending results of testing. Supervising Physician Co-Signing Physician Notes Agree with JORGE Mary as above Abd: Soft, Tender midepigastric area, ND, +BS Continue current therapy and supportive care Surgery consulted regarding cholelithiasis and pancreatitis History of Present Illness Reason for Consultation: Acute pancreatitis Requesting Physician: Dr. Pandey Attending Physician: Nicole Jurado MD History of Present Illness Patient is a pleasant 83 year-old female with a history of diabetes, CKD, HTN and hypertriglyceridemia was admitted with a sudden of abdominal pain and bloating beginning yesterday morning. She states she has never experienced pain like this in the past. On arrival, she was found to have a profoundly elevated lipase of 42,[address] evidence of acute pancreatitis. She has been admitted and placed on NPO status with initiation of IV fluid rescusitation at 150 ml/hr, IV Zosyn and IV antiemetics/analgesics. In doing so, the patient reports improved symptoms. She did have an emesis yesterday but none today. Mild nausea. Pain is rated at 0/10 at rest but increases to 6/10 with movement or abdominal palpation. Denies any diarrhea, constipation, melena, hematochezia or fever. Review of liver panel demonstrates a TB 0.9, AST 104, ALT 54 and ALP of 80. No history of alcohol use and triglycerides were only 181 on admission. Allergies Allergy/AdvReac Type Severity Reaction Status Date / Time Sulfa (Sulfonamide Allergy Unknown BLISTERS Verified 09/10/18 17:40 Antibiotics) Home Medications Home Medications Medication Instructions Recorded Confirmed Type Multi-Vitamin HP/Minerals 1 cap PO QAM 02/23/18 09/10/18 History cholecalciferol (vitamin D3) 2,000 unit PO 3XWK 02/23/18 09/10/18 History [Vitamin D3] gabapentin 200 mg PO HS 02/23/18 09/10/18 History gemfibrozil 600 mg PO QAM 02/23/18 09/10/18 History levothyroxine 75 mcg PO QAM 02/23/18 09/10/18 History olmesartan 40 mg PO QAM 02/23/18 09/10/18 History omega 6-wqg-odc-fish oil [Fish Oil] 1,000 mg PO QAM 02/23/18 09/10/18 History torsemide 10 mg PO QAM 02/23/18 09/10/18 History torsemide 20 mg PO QAM 02/23/18 09/10/18 History acetaminophen [Mapap 650 mg PO Q4H PRN #1 tab 02/26/18 09/10/18 Rx (acetaminophen)] aspirin [Aspirin Low Dose] 81 mg PO DAILY 09/10/18 09/10/18 History insulin NPH and regular human 60 unit SUBCUT BID 09/10/18 09/10/18 History [Novolin 70/30 U-100 Insulin] Patient History Medical History Cellulitis of left lower extremity (Acute) Pancreatitis (Acute) Acute kidney injury Neuropathy Chronic kidney disease, stage IV (severe) Acute UTI (Acute) Sepsis (Acute) Chronic venous insufficiency Diabetes mellitus (Chronic) Hypertension Hypothyroidism (acquired) Hypertriglyceridemia Cellulitis of right upper extremity Cellulitis of left lower extremity Social History Preferred Language: Hebrew Communication Ability: Effective Costume Shop Manager Required: No Beliefs That Will Affect Care: None marital status: Current Living Situation: Spouse Other Information That Helps Us Care for You: No Feels Safe at Home: Yes Safety Concerns: Feels Safe At This Time Smoking Status: Never smoker Do You Dip or Chew Tobacco: No Second Hand Exposure: No Tobacco Cessation Education Requested by Patient: No Hx Alcohol Use: No Hx Substance Use: No Review of Systems Constitutional: as per Subjective / HPI Eyes: no problem reported Ear, Nose, Mouth, Throat: no problem reported Respiratory: no problem reported Cardiovascular: no problem reported Gastrointestinal: as per Subjective / HPI Genitourinary: no problem reported Musculoskeletal: no problem reported Integumentary: no problem reported Neurologic: no problem reported Psychiatric: no problem reported Physical Exam Constitutional: WD/WN, vitals as above Eyes: EOM intact bilaterally Respiratory: normal respiratory effort, lungs clear to auscultation Cardiovascular: Rate/Rhythm: regular rate and regular rhythm Gastrointestinal (Abdomen): Inspection/Auscultation: + abdomen distended and normal bowel sounds Percussion/Palpation: + abdomen tender (epigastric) and abdomen soft Musculoskeletal: Extremities: no cyanosis Skin: no rashes, warm and dry Psychiatric: A+Ox3, euthymic affect Results & Data Vital Signs (Past 12 Hours) Vital Signs Temp Pulse Pulse Resp BP Pulse Ox 09/11/18 08:00 75 09/11/18 07:59 37.7 C H 86 19 144/66 H 97 09/11/18 04:38 37.1 C 86 18 149/71 H 93 09/10/18 23:19 36.7 C 81 17 154/68 H 92 Laboratory Results Abnormal lab results 09/10/18 09/10/18 09/10/18 Range/Units 16:58 16:58 20:44 WBC (4.8-10.8) K/uL RBC 3.68 L (4.2-5.4) M/uL Hgb 11.5 L (12.0-16.0) g/dL Hct 35.2 L (37-47) % RDW Std Deviation 46.6 H (36.4-46.3) fL MPV 10.8 H (7.4-10.4) fL Immature Gran # (Auto) (0.00-0.02) K/uL Neut # (Auto) 7.35 H (1.4-6.5) K/uL Lymph # (Auto) 0.91 L (1.2-3.4) K/uL Potassium 5.6 H (3.5-5.1) mmol/L Chloride (98-107) mmol/L BUN 38 H (7-18) mg/dl Creatinine 2.10 H (0.6-1.2) mg/dl Glucose 108 H (70-99) mg/dl POC Glucose (70-99) Calcium (8.5-10.1) mg/dl Total Bilirubin 1.4 H (0.2-1) mg/dl AST 150 H (15-37) U/L Albumin (3.4-5.0) gm/dl Albumin/Globulin Ratio (0.9-2) Triglycerides 181 H (0-150) mg/dl Lipase 74415 H (73-393) U/L 09/10/18 09/11/18 09/11/18 Range/Units 23:52 06:23 07:31 WBC 11.49 H (4.8-10.8) K/uL RBC 3.59 L (4.2-5.4) M/uL Hgb 11.5 L (12.0-16.0) g/dL Hct 34.7 L (37-47) % RDW Std Deviation 47.6 H (36.4-46.3) fL MPV 11.1 H (7.4-10.4) fL Immature Gran # (Auto) 0.04 H (0.00-0.02) K/uL Neut # (Auto) 9.91 H (1.4-6.5) K/uL Lymph # (Auto) 1.11 L (1.2-3.4) K/uL Potassium (3.5-5.1) mmol/L Chloride (98-107) mmol/L BUN (7-18) mg/dl Creatinine (0.6-1.2) mg/dl Glucose (70-99) mg/dl POC Glucose 161 H 157 H (70-99) Calcium (8.5-10.1) mg/dl Total Bilirubin (0.2-1) mg/dl AST (15-37) U/L Albumin (3.4-5.0) gm/dl Albumin/Globulin Ratio (0.9-2) Triglycerides (0-150) mg/dl Lipase (73-393) U/L 09/11/18 Range/Units 07:31 WBC (4.8-10.8) K/uL RBC (4.2-5.4) M/uL Hgb (12.0-16.0) g/dL Hct (37-47) % RDW Std Deviation (36.4-46.3) fL MPV (7.4-10.4) fL Immature Gran # (Auto) (0.00-0.02) K/uL Neut # (Auto) (1.4-6.5) K/uL Lymph # (Auto) (1.2-3.4) K/uL Potassium 5.7 H (3.5-5.1) mmol/L Chloride 109 H (98-107) mmol/L BUN 34 H (7-18) mg/dl Creatinine 2.03 H (0.6-1.2) mg/dl Glucose 147 H (70-99) mg/dl POC Glucose (70-99) Calcium 8.1 L D (8.5-10.1) mg/dl Total Bilirubin (0.2-1) mg/dl AST 104 H (15-37) U/L Albumin 2.8 L (3.4-5.0) gm/dl Albumin/Globulin Ratio 0.8 L (0.9-2) Triglycerides (0-150) mg/dl Lipase 34617 H (73-393) U/L (1) Pancreatitis Acute pancreatitis complication: unspecified Chronicity: acute Pancreatitis type: other Qualified Code(s): K85.80 - Other acute pancreatitis without necrosis or infection (2) Nausea & vomiting Vomiting Intractability: unspecified Vomiting type: unspecified Qualified Code(s): R11.2 - Nausea with vomiting, unspecified (3) Abdominal pain Abdominal location: unspecified location Qualified Code(s): R10.9 - Unspecified abdominal pain
--- NOTE | 2018-09-11 11:32 | XRay Report ---
ORBIT RADIOGRAPHS 3 VIEWS HISTORY: pre-MRI screening. COMPARISON: None. FINDINGS: There are no radiopaque foreign bodies identified within the orbits. IMPRESSION: No radiopaque foreign bodies identified within the orbits. Electronically signed by: Chpain Nielsen M.D. 09/11/2018 11:30 AM
--- NOTE | 2018-09-11 11:51 | Ultrasound Report ---
US gallbladder CLINICAL HISTORY: Acute pancreatitis. COMPARISON STUDY: CT of the abdomen and pelvis September 10, 2018. FINDINGS: Liver is sonographically normal. Common bile duct is partially obscured measures approximat zia 8 mm in caliber. No common bile duct calculi are identified although sensitivity is diminished on this exam. There are multiple gallstones within the gallbladder with sludge. No sonographic Felix s ign was reported. No gallbladder wall thickening was identified. The pancreas appears edematous. No p eripancreatic fluid collection is identified. There is no right hydronephrosis. IMPRESSION: 1. Borderline dilatation of the common bile duct measuring 8 mm. No common bile duct calculi identifi ed although distal common bile duct obscured. 2. Edematous pancreas consistent with acute pancreatitis. 3. Cholelithiasis. No sonographic evidence of acute cholecystitis. Electronically signed by: Stanley Kwong M.D. 09/11/2018 11:50 AM
--- NOTE | 2018-09-11 14:01 | Magnetic Resonance Report ---
MRCP CLINICAL HISTORY: Suspected obstructive pancreatitis. COMPARISON STUDY: CT of the abdomen and pelvis September 10, 2018 and right upper quadrant ultrasound perf ormed earlier today. TECHNIQUE: Utilizing a 1.5 Berenice magnet and dedicated coil, multiplanar, multiecho imaging of the [facility] abdomen was performed utilizing heavily T2 weighted pulsing sequences without intravenous contrast . FINDINGS: The caliber of the common bile duct is normal, measuring 5 mm. No common bile duct calculi are identified. There is no biliary ductal dilatation. The course and caliber of the main pancreatic duct is normal. Moderate peripancreatic fluid and infiltration extending into the mesentery is noted. There is a small amount of abdominal ascites. Multiple small gallstones within the gallbladder noted . The gallbladder is mildly distended however there is no evidence for gallbladder wall thickening or pericholecystic fluid. There are trace bilateral pleural effusions. No hepatic lesions are identifie d on this unenhanced exam. The spleen, adrenal glands and kidneys are unremarkable. Is no hydronephro sis. There is mild bilateral renal cortical thinning. IMPRESSION: 1. No biliary ductal dilatation. No choledocholithiasis. 2. Cholelithiasis and moderate gallbladder distention. No convincing evidence for acute cholecystitis . 3. Peripancreatic infiltration and fluid consistent with acute pancreatitis. No peripancreatic fluid collection. Electronically signed by: Stanley Kwong M.D. 09/11/2018 2:00 PM
--- NOTE | 2018-09-11 15:27 | Surgery Consultation ---
Date of Consultation September 11, 2018 Assessment & Plan (1) Pancreatitis: 83 year-old presenting with sudden epigastric abdominal pain, nausea, and bloating. Found to have cholelithiasis with acute pancreatitis with lipase of 42,018. No evidence of acute cholecystitis or choledocholithaisis. Leukocytosis of 8k on admission , elevated to 11K today. T. bili 1.4 --> 0.9 AST 150 --> 104 ALT 54 --> 54 Alk Phos 85 --> 80 Lipase 79502 --> 12,120 Plan: Dr. Ureña discussed with patient recommendations for cholecystectomy given cholelithiasis and pancreatitis however given her current level of acute pancreatitis would recommend allowing her pancreatitis to improve prior to entertaining cholecystectomy. Discussed laparoscopic possible open cholecystectomy. Would continue conservative treatment for acute pancreatitis with IV fluids, NPO, pain management as needed continue medical management DVT prophylaxis with SCDs and Heparin follow labs will follow (2) Cholelithiasis: Plan as above Dr. Ureña has seen and examined patient, agrees with above. Please see addendum for further recommendations/plan. Supervising Physician Co-Signing Physician Notes I have seen and evaluated the patient and reviewed the medical record. I agree with the documentation as provided in this note by Renetta Snell PA-C. Pt with pancreatitis likely secondary to gallbladder disease. Recommendation for cholecystectomy. Ideally this would be performed during this admission. However, will continue to follow clinically as lipase remains significantly elevated, there is significant stranding on the CT scan, and she is still quite tender on exam. Will continue to follow the patient clinically for improvement in pain prior to deciding timing of cholecystectomy. History of Present Illness Reason for Consultation: Gallstone pancreatitis Requesting Physician: MD Adrien Attending Physician: Nicole Jurado MD History of Present Illness Dana is a pleasant 83 year-old female who presented to emergency department last evening with complaint of sudden epigastric abdominal pain with associated nausea and bloating. Never had abdominal pain like this before. Denies of any associated fever, chills, vomiting, chest pain, shortness of breath, diarrhea, constipation, acholic stools, difficulty urinating, or dark colored urine. Never had history of pancreatitis or troubles with her gallbladder. ER work-up included labs which showed no leukocytosis originally, elevated t. bili at 1.4, AST 150, ALT 54, ALK phos 85 and lipase at 42,018. CT scan of abdomen and pelvis showed extensive peripancreatic infiltration and fluid consistent with acute pancreatitis. She had an MRCP which showed no evidence of choledocholithiasis or cholecystitis. She had a gallbladder US which showed cholelithiasis and no cholecystitis. Allergies Allergy/AdvReac Type Severity Reaction Status Date / Time Sulfa (Sulfonamide Allergy Unknown BLISTERS Verified 09/10/18 17:40 Antibiotics) Home Medications Home Medications Medication Instructions Recorded Confirmed Type Multi-Vitamin HP/Minerals 1 cap PO QAM 02/23/18 09/10/18 History cholecalciferol (vitamin D3) 2,000 unit PO 3XWK 02/23/18 09/10/18 History [Vitamin D3] gabapentin 200 mg PO HS 02/23/18 09/10/18 History gemfibrozil 600 mg PO QAM 02/23/18 09/10/18 History levothyroxine 75 mcg PO QAM 02/23/18 09/10/18 History olmesartan 40 mg PO QAM 02/23/18 09/10/18 History omega 2-ykt-ipl-fish oil [Fish Oil] 1,000 mg PO QAM 02/23/18 09/10/18 History torsemide 10 mg PO QAM 02/23/18 09/10/18 History torsemide 20 mg PO QAM 02/23/18 09/10/18 History acetaminophen [Mapap 650 mg PO Q4H PRN #1 tab 02/26/18 09/10/18 Rx (acetaminophen)] aspirin [Aspirin Low Dose] 81 mg PO DAILY 09/10/18 09/10/18 History insulin NPH and regular human 60 unit SUBCUT BID 09/10/18 09/10/18 History [Novolin 70/30 U-100 Insulin] Patient History Medical History Cellulitis of left lower extremity (Acute) Pancreatitis (Acute) Acute kidney injury Neuropathy Chronic kidney disease, stage IV (severe) Acute UTI (Acute) Sepsis (Acute) Chronic venous insufficiency Diabetes mellitus (Chronic) Hypertension Hypothyroidism (acquired) Hypertriglyceridemia Cellulitis of right upper extremity Cellulitis of left lower extremity Social History Preferred Language: Polish Communication Ability: Effective 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 Beliefs That Will Affect Care: None marital status: Current Living Situation: Spouse Other Information That Helps Us Care for You: No Feels Safe at Home: Yes Safety Concerns: Feels Safe At This Time Smoking Status: Never smoker Do You Dip or Chew Tobacco: No Second Hand Exposure: No Tobacco Cessation Education Requested by Patient: No Hx Alcohol Use: No Hx Substance Use: No Results & Data Vital Signs (Past 12 Hours) Vital Signs Temp Pulse Pulse Resp BP Pulse Ox 09/11/18 13:38 36.7 C 88 19 118/64 97 09/11/18 08:00 75 09/11/18 07:59 37.7 C H 86 19 144/66 H 97 09/11/18 04:38 37.1 C 86 18 149/71 H 93 Laboratory Results 09/11/18 09/11/18 09/11/18 Range/Units 15:28 13:36 07:31 WBC (4.8-10.8) K/uL RBC (4.2-5.4) M/uL Hgb (12.0-16.0) g/dL Hct (37-47) % MCV (80-100) fL MCH (25-34) pg MCHC (32-36) g/dL RDW Std Deviation (36.4-46.3) fL RDW Coeff of Brian (11.5-14.5) % Plt Count (130-400) K/uL MPV (7.4-10.4) fL Immature Gran % (Auto) % Neut % (Auto) % Lymph % (Auto) % [place] % (Auto) % Eos % (Auto) % Baso % (Auto) % Immature Gran # (Auto) (0.00-0.02) K/uL Neut # (Auto) (1.4-6.5) K/uL Lymph # (Auto) (1.2-3.4) K/uL [place] # (Auto) (0.11-0.59) K/uL Eos # (Auto) (0-0.5) K/uL Baso # (Auto) (0-0.2) K/uL PT (9.0-12.0) Seconds INR (0.9-1.1) APTT (21.0-31.0) Seconds PTT Ratio Sodium Pending 141 (136-145) mmol/L Potassium Pending 5.7 H (3.5-5.1) mmol/L Chloride Pending 109 H (98-107) mmol/L Carbon Dioxide Pending 26 (21-32) mmol/L Anion Gap Pending 5.0 (3-11) BUN Pending 34 H (7-18) mg/dl Creatinine Pending 2.03 H (0.6-1.2) mg/dl Est Cr Clr Drug Dosing Pending 25.5 ml/min Est GFR ( Amer) Pending 25.8 Est GFR (Non-Af Amer) Pending 22.3 BUN/Creatinine Ratio Pending 16.6 (10-20) Glucose Pending 147 H (70-99) mg/dl POC Glucose 130 H (70-99) Calcium Pending 8.1 L D (8.5-10.1) mg/dl Total Bilirubin 0.9 D (0.2-1) mg/dl AST 104 H (15-37) U/L ALT 54 (12-78) U/L Alkaline Phosphatase 80 (45-117) U/L Troponin I (0-0.045) ng/ml Total Protein 6.4 (6.4-8.2) gm/dl Albumin 2.8 L (3.4-5.0) gm/dl Globulin 3.6 (2.5-4.0) gm/dl Albumin/Globulin Ratio 0.8 L (0.9-2) Triglycerides (0-150) mg/dl Cholesterol (0-200) mg/dl LDL Cholesterol, Calc mg/dl VLDL Cholesterol, Calc mg/dl HDL Cholesterol mg/dl Cholesterol/HDL Ratio Lipase 52739 H (73-393) U/L Urine Color Urine Appearance (Clear) Urine pH (4.5-7.5) Ur Specific [place] (1.000-1.030) Urine Protein (Negative) Urine Glucose (UA) (Negative) Urine Ketones (Negative) Urine Blood (Negative) Urine Nitrite (Negative) Urine Bilirubin (Negative) Urine Urobilinogen (Negative) Ur Leukocyte Esterase (Negative) 09/11/18 09/11/18 09/10/18 Range/Units 07:31 06:23 23:52 WBC 11.49 H (4.8-10.8) K/uL RBC 3.59 L (4.2-5.4) M/uL Hgb 11.5 L (12.0-16.0) g/dL Hct 34.7 L (37-47) % MCV 96.7 (80-100) fL MCH 32.0 (25-34) pg MCHC 33.1 (32-36) g/dL RDW Std Deviation 47.6 H (36.4-46.3) fL RDW Coeff of Brian 13.6 (11.5-14.5) % Plt Count 155 (130-400) K/uL MPV 11.1 H (7.4-10.4) fL Immature Gran % (Auto) 0.3 % Neut % (Auto) 86.3 % Lymph % (Auto) 9.7 % [place] % (Auto) 3.1 % Eos % (Auto) 0.5 % Baso % (Auto) 0.1 % Immature Gran # (Auto) 0.04 H (0.00-0.02) K/uL Neut # (Auto) 9.91 H (1.4-6.5) K/uL Lymph # (Auto) 1.11 L (1.2-3.4) K/uL [place] # (Auto) 0.36 (0.11-0.59) K/uL Eos # (Auto) 0.06 (0-0.5) K/uL Baso # (Auto) 0.01 (0-0.2) K/uL PT (9.0-12.0) Seconds INR (0.9-1.1) APTT (21.0-31.0) Seconds PTT Ratio Sodium (136-145) mmol/L Potassium (3.5-5.1) mmol/L Chloride (98-107) mmol/L Carbon Dioxide (21-32) mmol/L Anion Gap (3-11) BUN (7-18) mg/dl Creatinine (0.6-1.2) mg/dl Est Cr Clr Drug Dosing ml/min Est GFR ( Amer) Est GFR (Non-Af Amer) BUN/Creatinine Ratio (10-20) Glucose (70-99) mg/dl POC Glucose 157 H 161 H (70-99) Calcium (8.5-10.1) mg/dl Total Bilirubin (0.2-1) mg/dl AST (15-37) U/L ALT (12-78) U/L Alkaline Phosphatase (45-117) U/L Troponin I (0-0.045) ng/ml Total Protein (6.4-8.2) gm/dl Albumin (3.4-5.0) gm/dl Globulin (2.5-4.0) gm/dl Albumin/Globulin Ratio (0.9-2) Triglycerides (0-150) mg/dl Cholesterol (0-200) mg/dl LDL Cholesterol, Calc mg/dl VLDL Cholesterol, Calc mg/dl HDL Cholesterol mg/dl Cholesterol/HDL Ratio Lipase (73-393) U/L Urine Color Urine Appearance (Clear) Urine pH (4.5-7.5) Ur Specific [place] (1.000-1.030) Urine Protein (Negative) Urine Glucose (UA) (Negative) Urine Ketones (Negative) Urine Blood (Negative) Urine Nitrite (Negative) Urine Bilirubin (Negative) Urine Urobilinogen (Negative) Ur Leukocyte Esterase (Negative) 09/10/18 09/10/18 09/10/18 Range/Units 20:44 20:30 16:58 WBC (4.8-10.8) K/uL RBC (4.2-5.4) M/uL Hgb (12.0-16.0) g/dL Hct (37-47) % MCV (80-100) fL MCH (25-34) pg MCHC (32-36) g/dL RDW Std Deviation (36.4-46.3) fL RDW Coeff of Brian (11.5-14.5) % Plt Count (130-400) K/uL MPV (7.4-10.4) fL Immature Gran % (Auto) % Neut % (Auto) % Lymph % (Auto) % [place] % (Auto) % Eos % (Auto) % Baso % (Auto) % Immature Gran # (Auto) (0.00-0.02) K/uL Neut # (Auto) (1.4-6.5) K/uL Lymph # (Auto) (1.2-3.4) K/uL [place] # (Auto) (0.11-0.59) K/uL Eos # (Auto) (0-0.5) K/uL Baso # (Auto) (0-0.2) K/uL PT (9.0-12.0) Seconds INR (0.9-1.1) APTT (21.0-31.0) Seconds PTT Ratio Sodium 140 (136-145) mmol/L Potassium 5.6 H (3.5-5.1) mmol/L Chloride 107 (98-107) mmol/L Carbon Dioxide 26 (21-32) mmol/L Anion Gap 7.0 (3-11) BUN 38 H (7-18) mg/dl Creatinine 2.10 H (0.6-1.2) mg/dl Est Cr Clr Drug Dosing 24.4 ml/min Est GFR ( Amer) 24.8 Est GFR (Non-Af Amer) 21.4 BUN/Creatinine Ratio 18.0 (10-20) Glucose 108 H (70-99) mg/dl POC Glucose (70-99) Calcium 9.6 (8.5-10.1) mg/dl Total Bilirubin 1.4 H (0.2-1) mg/dl AST 150 H (15-37) U/L ALT 54 (12-78) U/L Alkaline Phosphatase 85 (45-117) U/L Troponin I < 0.015 (0-0.045) ng/ml Total Protein 7.4 (6.4-8.2) gm/dl Albumin 3.5 (3.4-5.0) gm/dl Globulin 3.9 (2.5-4.0) gm/dl Albumin/Globulin Ratio 0.9 (0.9-2) Triglycerides 181 H (0-150) mg/dl Cholesterol 133 (0-200) mg/dl LDL Cholesterol, Calc 72 mg/dl VLDL Cholesterol, Calc 36 mg/dl HDL Cholesterol 25 mg/dl Cholesterol/HDL Ratio 5 Lipase 60532 H (73-393) U/L Urine Color Yellow Urine Appearance Clear (Clear) Urine pH 5.5 (4.5-7.5) Ur Specific [place] 1.016 (1.000-1.030) Urine Protein Negative (Negative) Urine Glucose (UA) Negative (Negative) Urine Ketones Negative (Negative) Urine Blood Negative (Negative) Urine Nitrite Negative (Negative) Urine Bilirubin Negative (Negative) Urine Urobilinogen Negative (Negative) Ur Leukocyte Esterase Negative (Negative) 09/10/18 09/10/18 Range/Units 16:58 16:58 WBC 8.52 (4.8-10.8) K/uL RBC 3.68 L (4.2-5.4) M/uL Hgb 11.5 L (12.0-16.0) g/dL Hct 35.2 L (37-47) % MCV 95.7 (80-100) fL MCH 31.3 (25-34) pg MCHC 32.7 (32-36) g/dL RDW Std Deviation 46.6 H (36.4-46.3) fL RDW Coeff of Brian 13.4 (11.5-14.5) % Plt Count 150 (130-400) K/uL MPV 10.8 H (7.4-10.4) fL Immature Gran % (Auto) 0.2 % Neut % (Auto) 86.3 % Lymph % (Auto) 10.7 % [place] % (Auto) 2.5 % Eos % (Auto) 0.2 % Baso % (Auto) 0.1 % Immature Gran # (Auto) 0.02 (0.00-0.02) K/uL Neut # (Auto) 7.35 H (1.4-6.5) K/uL Lymph # (Auto) 0.91 L (1.2-3.4) K/uL [place] # (Auto) 0.21 (0.11-0.59) K/uL Eos # (Auto) 0.02 (0-0.5) K/uL Baso # (Auto) 0.01 (0-0.2) K/uL PT 11.4 (9.0-12.0) Seconds INR 1.1 (0.9-1.1) APTT 24.5 (21.0-31.0) Seconds PTT Ratio 0.9 Sodium (136-145) mmol/L Potassium (3.5-5.1) mmol/L Chloride (98-107) mmol/L Carbon Dioxide (21-32) mmol/L Anion Gap (3-11) BUN (7-18) mg/dl Creatinine (0.6-1.2) mg/dl Est Cr Clr Drug Dosing ml/min Est GFR ( Amer) Est GFR (Non-Af Amer) BUN/Creatinine Ratio (10-20) Glucose (70-99) mg/dl POC Glucose (70-99) Calcium (8.5-10.1) mg/dl Total Bilirubin (0.2-1) mg/dl AST (15-37) U/L ALT (12-78) U/L Alkaline Phosphatase (45-117) U/L Troponin I (0-0.045) ng/ml Total Protein (6.4-8.2) gm/dl Albumin (3.4-5.0) gm/dl Globulin (2.5-4.0) gm/dl Albumin/Globulin Ratio (0.9-2) Triglycerides (0-150) mg/dl Cholesterol (0-200) mg/dl LDL Cholesterol, Calc mg/dl VLDL Cholesterol, Calc mg/dl HDL Cholesterol mg/dl Cholesterol/HDL Ratio Lipase (73-393) U/L Urine Color Urine Appearance (Clear) Urine pH (4.5-7.5) Ur Specific [place] (1.000-1.030) Urine Protein (Negative) Urine Glucose (UA) (Negative) Urine Ketones (Negative) Urine Blood (Negative) Urine Nitrite (Negative) Urine Bilirubin (Negative) Urine Urobilinogen (Negative) Ur Leukocyte Esterase (Negative) Diagnostic Findings CT OF THE ABDOMEN AND PELVIS WITHOUT CONTRAST CLINICAL HISTORY: Upper abdominal pain. COMPARISON STUDY: CT of the abdomen November 30, 2009. TECHNIQUE: Axial images of the abdomen and pelvis were obtained without IV contrast. Images were reviewed in the axial, sagittal, and coronal planes. Automated exposure control was utilized for the study. A dose lowering technique was utilized adhering to the principles of ALARA. FINDINGS: The patient is status post right mastectomy. There is moderate cardiomegaly. No pneumatosis, free air or portal venous gas is present. Evaluation of the abdomen and pelvis is suboptimal on this unenhanced study. Unenhanced images of the liver, spleen and adrenal glands are unremarkable. There is no biliary or pancreatic ductal dilatation. There is moderate distention of the gallbladder without pericholecystic infiltration. There is extensive peripancreatic infiltration and fluid which extends into the mesentery. No peripancreatic fluid collection is present. Evaluation of the pancreas is suboptimal on this unenhanced study. No radiopaque stones within the gallbladder or common bile duct are identified. The appendix is normal. There is no evidence for a bowel obstruction. 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 There is atrophy of the visualized left thigh musculature. No lymphadenopathy is present. IMPRESSION: 1. Extensive peripancreatic infiltration and fluid consistent with acute pancreatitis. 2. Moderate distention of the gallbladder. No pericholecystic infiltration. No biliary ductal dilatation. MRCP CLINICAL HISTORY: Suspected obstructive pancreatitis. COMPARISON STUDY: CT of the abdomen and pelvis September 10, 2018 and right upper quadrant ultrasound performed earlier today. TECHNIQUE: Utilizing a 1.5 Berenice magnet and dedicated coil, multiplanar, multiecho imaging of the upper abdomen was performed utilizing heavily T2 weighted pulsing sequences without intravenous contrast. FINDINGS: The caliber of the common bile duct is normal, measuring 5 mm. No common bile duct calculi are identified. There is no biliary ductal dilatation. The course and caliber of the main pancreatic duct is normal. Moderate peripancreatic fluid and infiltration extending into the mesentery is noted. There is a small amount of abdominal ascites. Multiple small gallstones within the gallbladder noted. The gallbladder is mildly distended however there is no evidence for gallbladder wall thickening or pericholecystic fluid. There are trace bilateral pleural effusions. No hepatic lesions are identified on this unenhanced exam. The spleen, adrenal glands and kidneys are unremarkable. Is no hydronephrosis. There is mild bilateral renal cortical thinning. IMPRESSION: 1. No biliary ductal dilatation. No choledocholithiasis. 2. Cholelithiasis and moderate gallbladder distention. No convincing evidence for acute cholecystitis. 3. Peripancreatic infiltration and fluid consistent with acute pancreatitis. No peripancreatic fluid collection. US gallbladder CLINICAL HISTORY: Acute pancreatitis. COMPARISON STUDY: CT of the abdomen and pelvis September 10, 2018. FINDINGS: Liver is sonographically normal. Common bile duct is partially obscured measures approximately 8 mm in caliber. No common bile duct calculi are identified although sensitivity is diminished on this exam. There are multiple gallstones within the gallbladder with sludge. No sonographic Felix sign was reported. No gallbladder wall thickening was identified. The pancreas appears edematous. No peripancreatic fluid collection is identified. There is no right hydronephrosis. IMPRESSION: 1. Borderline dilatation of the common bile duct measuring 8 mm. No common bile duct calculi identified although distal common bile duct obscured. 2. Edematous pancreas consistent with acute pancreatitis. 3. Cholelithiasis. No sonographic evidence of acute cholecystitis. (1) Pancreatitis Acute pancreatitis complication: unspecified Chronicity: acute Pancreatitis type: other Qualified Code(s): K85.80 - Other acute pancreatitis without necrosis or infection
[2018-09-11 15:57] LABS: BUN Creatinine Ratio 16.3 (10-20); Calcium 7.8 mg/dl (8.5-10.1); Creatinine Clr Calc Pharmacy 24.5 ml/min; Est GFR (African American) 24.6; Est GFR (Non-African American) 21.3; Potassium 5.7 mmol/L (3.5-5.1)
[2018-09-11] MEDS ORDERED: ACETAMINOPHEN 65 ML IV ONE (20:31)
[2018-09-11] MEDS ORDERED: SODIUM CHLORIDE 0.9% 500 ML IV ONE (23:39)
[2018-09-12] MEDS: MoRPHine SULFATE 4 MG/ML 1 ML CARP\\VIAL IV PRN ×2 (01:44→08:56)
[2018-09-12 05:57] LABS: Basophils # (auto) 0.02 K/uL (0-0.2); Basophils % (auto) 0.1 %; Eosinophils # (auto) 0.07 K/uL (0-0.5); Eosinophils % (auto) 0.5 %; Hematocrit (blood only) 35.5 % (37-47); Hemoglobin 11.2 g/dL (12.0-16.0); Immature Granulocytes # (auto) 0.05 K/uL (0.00-0.02); Immature Granulocytes % (auto) 0.3 %; Lymphocytes % (auto) 10.4 %; Mean Corpuscular Hgb Conc 31.5 g/dL (32-36); Mean Corpuscular Volume 98.9 fL (80-100); Mean Platelet Volume 11.5 fL (7.4-10.4); Monocytes % (auto) 3.9 %; Neutrophils # (auto) 13.08 K/uL (1.4-6.5); Neutrophils % (auto) 84.8 %; Platelet Count 155 K/uL (130-400); RDW Coefficient of Variation 14.2 % (11.5-14.5); Red Blood Count 3.59 M/uL (4.2-5.4); White Blood Count 15.42 K/uL (4.8-10.8)
[2018-09-12 06:29] LABS: Est GFR (African American) 19.1; Est GFR (Non-African American) 16.4; Potassium 5.4 mmol/L (3.5-5.1)
[2018-09-12 06:30] LABS: Albumin Level 2.2 gm/dl (3.4-5.0); BUN Creatinine Ratio 15.2 (10-20); Calcium 7.3 mg/dl (8.5-10.1); Creatinine Clr Calc Pharmacy 19.8 ml/min
[2018-09-12 06:33] LABS: Albumin Globulin Ratio 0.6 (0.9-2); Bilirubin,Total 0.9 mg/dl (0.2-1); Globulin 3.6 gm/dl (2.5-4.0); Total Protein 5.8 gm/dl (6.4-8.2)
[2018-09-12] MEDS: PIPERACILLIN/TAZOBACTAM 4.5 GM in DEXTROSE 5% 100 ML IV SCH ×2 (08:36→19:45)
[2018-09-12] MEDS: HEPARIN SOD 5,000 UNIT/0.5 ML VIAL SQ SCH ×2 (08:38→20:33)
[2018-09-12] MEDS: INSULIN HUMAN 70% NPH/30% REGULAR SQ SCH ×2 (08:38→17:42)
[2018-09-12] MEDS: SODIUM CHLORIDE 0.9% 1000ML 1,000 ML IV SCH ×2 (09:51→18:24)
--- NOTE | 2018-09-12 10:28 | XRay Report ---
SINGLE VIEW CHEST CLINICAL HISTORY: Dyspnea. Pancreatitis. FINDINGS: An AP, portable, upright chest radiograph is compared to study dated 09/10/2018 and correlate d with chest CT dated 08/01/2006. The heart is enlarged. There is prominence of the pulmonary vasculat ure. Airspace opacities are similar left lung base and likely represent atelectasis. The right lung a ppears clear. Question trace pleural effusions. No pneumothorax is seen. The skeletal structures are osteopenic. The bony thorax is grossly intact. Degenerative change is noted in the thoracic spine. IMPRESSION: 1. Cardiomegaly with prominence of the pulmonary vasculature. Correlate clinically for evidence of mi ld congestive change. 2. Airspace are again seen at the left lung base. This is unchanged from yesterday and likely represe nts atelectasis. Clinical correlation will be required. 3. Question trace pleural effusions. Electronically signed by: Geoffrey Hall M.D. 09/12/2018 10:26 AM
--- NOTE | 2018-09-12 10:33 | Gastroenterology Progress Note ---
Date of Service September 12, 2018 Assessment & Plan (1) Pancreatitis: (2) Abdominal pain: (3) Nausea & vomiting: Diff dx: idiopathic vs gall bladder vs medication induced vs alcohol (denies use) vs other. 1. Start clear liquid diet. 2. Advance diet as tolerated 3. Supportive care per primary team. 4. Await further input from general surgery. Supervising Physician Co-Signing Physician Notes Agree with JORGE Mary as above Abd: Soft, tender epigastric area, ND, +BS Continue current therapy and supportive care Subjective Patient reports not feeling well this morning. She denies any abdominal pain or n/v, however. Lipase has significantly improved and was noted to be 2351 yesterday. Surgery has evaluated the patient and is considering a cholecystectom y once acute pancreatitis has improved. Review of Systems Review of Systems: All systems reviewed & are unremarkable except as noted in HPI & below Physical Exam Respiratory: normal respiratory effort, lungs clear to auscultation Cardiovascular: Rate/Rhythm: regular rate and regular rhythm Gastrointestinal (Abdomen): Inspection/Auscultation: abdomen normal to inspection and normal bowel sounds Percussion/Palpation: + abdomen tender (moderate epigastric pain) and abdomen soft Results & Data Vital Signs (Past 12 Hours) Vital Signs Temp Pulse Pulse Resp BP Pulse Ox 09/12/18 07:38 37.1 C 95 H 22 134/69 94 09/12/18 06:20 91 H 09/12/18 04:17 36.7 C 88 18 124/65 96 09/11/18 23:05 38 C H 93 H 20 108/57 L 94 Laboratory Results Abnormal lab results 09/11/18 09/11/18 09/12/18 Range/Units 13:36 15:28 05:18 WBC 15.42 H (4.8-10.8) K/uL RBC 3.59 L (4.2-5.4) M/uL Hgb 11.2 L (12.0-16.0) g/dL Hct 35.5 L (37-47) % MCHC 31.5 L (32-36) g/dL RDW Std Deviation 51.0 H (36.4-46.3) fL MPV 11.5 H (7.4-10.4) fL Immature Gran # (Auto) 0.05 H (0.00-0.02) K/uL Neut # (Auto) 13.08 H (1.4-6.5) K/uL [place] # (Auto) 0.60 H (0.11-0.59) K/uL Potassium 5.7 H (3.5-5.1) mmol/L Chloride 110 H (98-107) mmol/L BUN 34 H (7-18) mg/dl Creatinine 2.11 H (0.6-1.2) mg/dl Glucose 115 H (70-99) mg/dl POC Glucose 130 H (70-99) Calcium 7.8 L (8.5-10.1) mg/dl AST (15-37) U/L Total Protein (6.4-8.2) gm/dl Albumin (3.4-5.0) gm/dl Albumin/Globulin Ratio (0.9-2) Lipase (73-393) U/L 09/12/18 09/12/18 Range/Units 05:18 06:09 WBC (4.8-10.8) K/uL RBC (4.2-5.4) M/uL Hgb (12.0-16.0) g/dL Hct (37-47) % MCHC (32-36) g/dL RDW Std Deviation (36.4-46.3) fL MPV (7.4-10.4) fL Immature Gran # (Auto) (0.00-0.02) K/uL Neut # (Auto) (1.4-6.5) K/uL [place] # (Auto) (0.11-0.59) K/uL Potassium 5.4 H (3.5-5.1) mmol/L Chloride 112 H (98-107) mmol/L BUN 40 H (7-18) mg/dl Creatinine 2.61 H D (0.6-1.2) mg/dl Glucose 115 H (70-99) mg/dl POC Glucose 126 H (70-99) Calcium 7.3 L (8.5-10.1) mg/dl AST 50 H (15-37) U/L Total Protein 5.8 L (6.4-8.2) gm/dl Albumin 2.2 L (3.4-5.0) gm/dl Albumin/Globulin Ratio 0.6 L (0.9-2) Lipase 2351 H (73-393) U/L (1) Pancreatitis Acute pancreatitis complication: unspecified Chronicity: acute Pancreatitis type: other Qualified Code(s): K85.80 - Other acute pancreatitis without necrosis or infection (2) Nausea & vomiting Vomiting Intractability: unspecified Vomiting type: unspecified Qualified Code(s): R11.2 - Nausea with vomiting, unspecified (3) Abdominal pain Abdominal location: unspecified location Qualified Code(s): R10.9 - Unspecified abdominal pain
--- NOTE | 2018-09-12 10:41 | Family Medicine Progress Note ---
Date of Service September 12, 2018 Assessment & Plan (1) Pancreatitis: Ms. Mike is a 83 year old female with a past medical history of CKD stage 4, breast cancer s/p mastectomy in 2000, diabetes mellitus, hypothyroidism, chronic venous insufficiency and peripheral neuropathy who presents to [facility] with sudden onset abdominal pain. Lipase on admission was 42K. CT suggested pancreatitis. Pt was admitted for pancreatitis. Acute Pancreatitis, - Lipase level of 42k -->1999, pt denies alcohol use, no medications that may cause pancreatitis, triglycerides 181 (not high enough to contribute) - biliary U/S and MRCP show -> dilation of CBD measuring 8mm, cholelithiasis but no acute cholecystitis, edematous pancreas - GI consulted -> progress diet -> IVF -General surgery consulted -> recommend cholecystectomy once recovered from acute pancreatitis -pt made NPO, receiving NS at 100 mls/hr -morphine 3mg IV q2h prn pain and zofran 4mg IV q6h prn nausea New O2 Requirement X-ray today showed mild pulm edema, will decrease IVF to 100mls/hr. No history of CHF , allscripts reviewed, will obtain echocardiogram. Acute Kidney Injury on a background of Chronic CKD, Stage 4 -baseline creatinine is 1.7 -elevating 2.1-->2.6 - K+ high, - consult nephro considering acute inflammatory process and need for aggressive hydration. - IVF as above. Cellulitis of left lower extremity Likely from stasis, improving, MRSA swab negative, admitted on Zosyn, switch to PO once tolerating diet and pain decreases. Hyperkalemia -potassium level 5.4 today -likely related to kidney disease - appreciate nephro recs. DM2 -takes insulin at home, regimen decreased by half -holding home gabapentin and aspirin given NPO Dyslipidemia -holding home gemfibrozil Hypothyroidism -will restart IV synthroid at 30mcg IV. Hypertension -hold home olmesartan and torsemide Code status: DNR/DNI DVT Prophylaxis: heparin 5,000 BID Disposition: remains on telemetry (2) Cellulitis of left lower extremity: (3) Chronic kidney disease, stage IV (severe): (4) Diabetes mellitus: (5) DVT prophylaxis: (6) DNR (do not resuscitate): Supervising Physician Co-Signing Physician Notes Resident Physician Supervision Note: I independently interviewed and examined the patient and verified the brooks history and physical, reviewed labs and image studies, discussed the case with the resident Dr. Laws and agree with the findings and care plan. Subjective Pt was seen and examined at bedside. Temp reaching 39C overnight. Tele showed sinus rhythm with PACs, pt still requires 2LNC. Pt reports not feeling well due to no improvement in abdominal pain. Still NPO. No vomiting. ROS: No chest pain, no SOB, no dyspnea on exertion, no palpitations, no nausea, no vomiting, no diarrhea, no dysuria, no rash. Physical Exam Constitutional: WD/WN, vitals as above + obese Eyes: EOM intact bilaterally Respiratory: normal respiratory effort, lungs clear to auscultation Auscultation: lungs clear to auscultation bilaterally and + diminished lung sounds Cardiovascular: Rate/Rhythm: regular rate and regular rhythm Gastrointestinal (Abdomen): Inspection/Auscultation: + abdomen distended and normal bowel sounds Percussion/Palpation: + abdomen tender (moderate epigastric pain) Musculoskeletal: Extremities: no cyanosis Skin: no rashes, warm and dry Psychiatric: A+Ox3, euthymic affect Results & Data Vital Signs (Past 12 Hours) Vital Signs Temp Pulse Pulse Resp BP Pulse Ox 09/12/18 07:38 37.1 C 95 H 22 134/69 94 09/12/18 06:20 91 H 09/12/18 04:17 36.7 C 88 18 124/65 96 09/11/18 23:05 38 C H 93 H 20 108/57 L 94 Resident Activity Tracking Resident Involvement: Resident Care Provided Care Provided: Adult Hospital Medicine (1) Pancreatitis Acute pancreatitis complication: unspecified Chronicity: acute Pancreatitis type: other Qualified Code(s): K85.80 - Other acute pancreatitis without necrosis or infection
--- NOTE | 2018-09-12 12:26 | XRay Report ---
KUB HISTORY: distended abdomen, eval for free air COMPARISON: Abdomen and pelvis CT 09/10/2018. FINDINGS: Multiple large gallstones are noted. A few mildly dilated gas-filled loops of large and sma ll bowel. This favors an ileus. Chronic left hip deformity persists. Left basilar linear densities fa vor subsegmental atelectasis. No renal calculi. No ureteral calculi. No definite pneumoperitoneum or pneumatosis. Of note, there is suboptimal evaluation for free air due to the patient's body habitus. IMPRESSION: 1. A few mildly dilated gas-filled loops of large and small bowel. This favors an ileus. 2. Cholelithiasis. Electronically signed by: Chapin Nielsen M.D. 09/12/2018 12:25 PM
--- NOTE | 2018-09-12 15:47 | Surgery Progress Note ---
Date of Service September 12, 2018 Assessment & Plan (1) Pancreatitis: 83 year-old presenting with sudden epigastric abdominal pain, nausea, and bloating. Found to have cholelithiasis with acute pancreatitis with lipase of 42,018 on admission. No evidence of acute cholecystitis or choledocholithaisis. Leukocytosis of 8k on admission , elevated to 15k today. T. bili 1.4 --> 0.9 --> 0.9 AST 150 --> 104 --> 50 ALT 54 --> 54 --> 34 Alk Phos 85 --> 80 --> 62 Lipase 01073 --> 12,120 --> 2351 Febrile with tmax of 39.0 and tachycardic in the 90's and hypertensive Creatinine increased to 2.61 (2.11), good urine output Plan: No immediate need for surgical intervention , there is no evidence of acute cholecystitis/choledocholithiasis . Given patient's initial lipase she may have severe case of acute pancreatitis. Concern would be for necrotic pancreatitis vs development of pancreatic pseudocyst and infected pancreatitis . In this instance would recommend transfer for endoscopic drainage prior to entertaining open surgical intervention. Would continue conservative treatment for acute pancreatitis with IV fluids, NPO, pain management as needed May need to consider INDUSTRIAL ENGINEERING ANALYST if pain not controlled Recommend IV Fluids at 125 mls/hr Incentive spirometer and chest pt Continue renee to monitor I/O's Likely will develop Ileus due to pancreatitis DVT prophylaxis with SCDs and Heparin follow labs will follow along, Dr. Morales covering this weekend Dr. Ureña has seen and examined patient, agrees with above. Supervising Physician Co-Signing Physician Notes I have seen and evaluated the patient and reviewed the medical record. I agree with the documentation as provided in this note by Renetta Snell PA-C. Subjective not feeling well today abdominal pain in upper abdomen, persistent no nausea or vomiting Physical Exam Constitutional: + morbidly obese and + lethargic; no acute distress and not ill appearing Respiratory: normal respiratory effort, lungs clear to auscultation no respiratory distress Gastrointestinal (Abdomen): Inspection/Auscultation: abdomen normal to inspection; abdomen not distended Percussion/Palpation: + abdomen tender (epigastrium and RUQ), + guarding (epigastrium) and abdomen soft; abdomen not rigid Skin: no rashes, warm and dry Psychiatric: A+Ox3, euthymic affect Results & Data Vital Signs (Past 12 Hours) Vital Signs Temp Pulse Pulse Resp BP Pulse Ox 09/12/18 10:50 37.0 C 93 H 20 123/65 95 09/12/18 07:38 37.1 C 95 H 22 134/69 94 09/12/18 06:20 91 H 09/12/18 04:17 36.7 C 88 18 124/65 96 Laboratory Results 09/12/18 09/12/18 09/12/18 Range/Units 18:16 16:16 12:15 WBC (4.8-10.8) K/uL RBC (4.2-5.4) M/uL Hgb (12.0-16.0) g/dL Hct (37-47) % MCV (80-100) fL MCH (25-34) pg MCHC (32-36) g/dL RDW Std Deviation (36.4-46.3) fL RDW Coeff of Brian (11.5-14.5) % Plt Count (130-400) K/uL MPV (7.4-10.4) fL Immature Gran % (Auto) % Neut % (Auto) % Lymph % (Auto) % [place] % (Auto) % Eos % (Auto) % Baso % (Auto) % Immature Gran # (Auto) (0.00-0.02) K/uL Neut # (Auto) (1.4-6.5) K/uL Lymph # (Auto) (1.2-3.4) K/uL [place] # (Auto) (0.11-0.59) K/uL Eos # (Auto) (0-0.5) K/uL Baso # (Auto) (0-0.2) K/uL Sodium (136-145) mmol/L Potassium (3.5-5.1) mmol/L Chloride (98-107) mmol/L Carbon Dioxide (21-32) mmol/L Anion Gap (3-11) BUN (7-18) mg/dl Creatinine (0.6-1.2) mg/dl Est Cr Clr Drug Dosing ml/min Est GFR ( Amer) Est GFR (Non-Af Amer) BUN/Creatinine Ratio (10-20) Glucose (70-99) mg/dl POC Glucose 97 98 115 H (70-99) Calcium (8.5-10.1) mg/dl Total Bilirubin (0.2-1) mg/dl AST (15-37) U/L ALT (12-78) U/L Alkaline Phosphatase (45-117) U/L Total Protein (6.4-8.2) gm/dl Albumin (3.4-5.0) gm/dl Globulin (2.5-4.0) gm/dl Albumin/Globulin Ratio (0.9-2) Lipase (73-393) U/L Nasal Screen MRSA (PCR) (Negative) 09/12/18 09/12/18 09/12/18 Range/Units 11:18 06:09 05:18 WBC (4.8-10.8) K/uL RBC (4.2-5.4) M/uL Hgb (12.0-16.0) g/dL Hct (37-47) % MCV (80-100) fL MCH (25-34) pg MCHC (32-36) g/dL RDW Std Deviation (36.4-46.3) fL RDW Coeff of Brian (11.5-14.5) % Plt Count (130-400) K/uL MPV (7.4-10.4) fL Immature Gran % (Auto) % Neut % (Auto) % Lymph % (Auto) % [place] % (Auto) % Eos % (Auto) % Baso % (Auto) % Immature Gran # (Auto) (0.00-0.02) K/uL Neut # (Auto) (1.4-6.5) K/uL Lymph # (Auto) (1.2-3.4) K/uL [place] # (Auto) (0.11-0.59) K/uL Eos # (Auto) (0-0.5) K/uL Baso # (Auto) (0-0.2) K/uL Sodium 143 (136-145) mmol/L Potassium 5.4 H (3.5-5.1) mmol/L Chloride 112 H (98-107) mmol/L Carbon Dioxide 24 (21-32) mmol/L Anion Gap 7.0 (3-11) BUN 40 H (7-18) mg/dl Creatinine 2.61 H D (0.6-1.2) mg/dl Est Cr Clr Drug Dosing 19.8 ml/min Est GFR ( Amer) 19.1 Est GFR (Non-Af Amer) 16.4 BUN/Creatinine Ratio 15.2 (10-20) Glucose 115 H (70-99) mg/dl POC Glucose 126 H (70-99) Calcium 7.3 L (8.5-10.1) mg/dl Total Bilirubin 0.9 (0.2-1) mg/dl AST 50 H (15-37) U/L ALT 34 (12-78) U/L Alkaline Phosphatase 62 (45-117) U/L Total Protein 5.8 L (6.4-8.2) gm/dl Albumin 2.2 L (3.4-5.0) gm/dl Globulin 3.6 (2.5-4.0) gm/dl Albumin/Globulin Ratio 0.6 L (0.9-2) Lipase 2351 H (73-393) U/L Nasal Screen MRSA (PCR) Negative (Negative) 09/12/18 09/11/18 Range/Units 05:18 23:05 WBC 15.42 H (4.8-10.8) K/uL RBC 3.59 L (4.2-5.4) M/uL Hgb 11.2 L (12.0-16.0) g/dL Hct 35.5 L (37-47) % MCV 98.9 (80-100) fL MCH 31.2 (25-34) pg MCHC 31.5 L (32-36) g/dL RDW Std Deviation 51.0 H (36.4-46.3) fL RDW Coeff of Brian 14.2 (11.5-14.5) % Plt Count 155 (130-400) K/uL MPV 11.5 H (7.4-10.4) fL Immature Gran % (Auto) 0.3 % Neut % (Auto) 84.8 % Lymph % (Auto) 10.4 % Kent[place] % (Auto) 3.9 % Eos % (Auto) 0.5 % Baso % (Auto) 0.1 % Immature Gran # (Auto) 0.05 H (0.00-0.02) K/uL Neut # (Auto) 13.08 H (1.4-6.5) K/uL Lymph # (Auto) 1.60 (1.2-3.4) K/uL [place] # (Auto) 0.60 H (0.11-0.59) K/uL Eos # (Auto) 0.07 (0-0.5) K/uL Baso # (Auto) 0.02 (0-0.2) K/uL Sodium (136-145) mmol/L Potassium (3.5-5.1) mmol/L Chloride (98-107) mmol/L Carbon Dioxide (21-32) mmol/L Anion Gap (3-11) BUN (7-18) mg/dl Creatinine (0.6-1.2) mg/dl Est Cr Clr Drug Dosing ml/min Est GFR ( Amer) Est GFR (Non-Af Amer) BUN/Creatinine Ratio (10-20) Glucose (70-99) mg/dl POC Glucose 99 (70-99) Calcium (8.5-10.1) mg/dl Total Bilirubin (0.2-1) mg/dl AST (15-37) U/L ALT (12-78) U/L Alkaline Phosphatase (45-117) U/L Total Protein (6.4-8.2) gm/dl Albumin (3.4-5.0) gm/dl Globulin (2.5-4.0) gm/dl Albumin/Globulin Ratio (0.9-2) Lipase (73-393) U/L Nasal Screen MRSA (PCR) (Negative) (1) Pancreatitis Acute pancreatitis complication: unspecified Chronicity: acute Pancreatitis type: other Qualified Code(s): K85.80 - Other acute pancreatitis without necrosis or infection
[2018-09-12] MEDS ORDERED: PIPERACILLIN/TAZOBACTAM 4.5 GM in DEXTROSE 5% 100 ML IV SCH (16:00)
--- NOTE | 2018-09-12 16:11 | Nephrology Consultation ---
Date of Consultation September 12, 2018 Assessment & Plan (1) Acute kidney injury: -- LISA related to inflammation and intravascular volume contraction associated w/ pancreatitis -- Hold ARB and diuretic therapy -- Continue hydration w/ 0.9NS -- Urinalysis is negative for blood or protein. No casts reported on microscopy -- Monitor UO, PRP (2) Chronic kidney disease, stage IV (severe): -- Baseline creatinine ~ 1.7 - 2.0 (3) Pancreatitis: (4) Cholelithiasis: -- Recommend postponing surgical intervention until LISA has resolved (Creat 2.0 or less) (5) Hypertension: -- Hold ARB therapy (6) Diabetes mellitus: (7) Cellulitis of left lower extremity: -- IV Zosyn as per primary service History of Present Illness Reason for Consultation: LISA/CKD Attending Physician: Nicole Jurado MD History of Present Illness Mrs. Mike is an 83 year old white female who is seen at the request of Dr. Jurado for evaluation of acute on chronic kidney injury. Medical records in the EMR were reviewed today and are summarized as follows: Mrs. Mike has stage IV CKD w/ baseline creatinine 1.7 - 2.0 (EGFR ~ 25 cc/min) due to diabetic nephropathy. 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 Mrs. Mike presented to the [facility] ED 09/10/18 with diffuse abdominal discomfort. Lipase was markedly elevated. Noncontrast abdominal CT was indeterminant. MRCP revealed gallbladder distention and pancreatic inflammation. Gallbladder US was positive for cholelithiasis. Surgery has assessed patient and recommends cholecystectomy once acute inflammation for pancreatitis has resolved. Serum creatinine has risen from 1.7 to 2.6. Patient is now oliguric Allergies Allergy/AdvReac Type Severity Reaction Status Date / Time Sulfa (Sulfonamide Allergy Unknown BLISTERS Verified 09/10/18 17:40 Antibiotics) Home Medications Home Medications Medication Instructions Recorded Confirmed Type Multi-Vitamin HP/Minerals 1 cap PO QAM 02/23/18 09/10/18 History cholecalciferol (vitamin D3) 2,000 unit PO 3XWK 02/23/18 09/10/18 History [Vitamin D3] gabapentin 200 mg PO HS 02/23/18 09/10/18 History gemfibrozil 600 mg PO QAM 02/23/18 09/10/18 History levothyroxine 75 mcg PO QAM 02/23/18 09/10/18 History olmesartan 40 mg PO QAM 02/23/18 09/10/18 History omega [id number] oil [Fish Oil] 1,000 mg PO QAM 02/23/18 09/10/18 History torsemide 10 mg PO QAM 02/23/18 09/10/18 History torsemide 20 mg PO QAM 02/23/18 09/10/18 History acetaminophen [Mapap 650 mg PO Q4H PRN #1 tab 02/26/18 09/10/18 Rx (acetaminophen)] aspirin [Aspirin Low Dose] 81 mg PO DAILY 09/10/18 09/10/18 History insulin NPH and regular human 60 unit SUBCUT BID 09/10/18 09/10/18 History [Novolin 70/30 U-100 Insulin] Patient History Medical History Cellulitis of left lower extremity (Acute) Pancreatitis (Acute) Acute kidney injury Neuropathy Chronic kidney disease, stage IV (severe) Acute UTI (Acute) Sepsis (Acute) Chronic venous insufficiency Diabetes mellitus (Chronic) Hypertension Hypothyroidism (acquired) Hypertriglyceridemia Cellulitis of right upper extremity Cellulitis of left lower extremity Social History Preferred Language: Croatian Communication Ability: Effective Drug Clerk Required: No Beliefs That Will Affect Care: None marital status: Current Living Situation: Spouse Other Information That Helps Us Care for You: No Feels Safe at Home: Yes Safety Concerns: Feels Safe At This Time Smoking Status: Never smoker Do You Dip or Chew Tobacco: No Second Hand Exposure: No Tobacco Cessation Education Requested by Patient: No Hx Alcohol Use: No Hx Substance Use: No Review of Systems Constitutional: no fever Respiratory: no dyspnea Cardiovascular: no chest pain Gastrointestinal: + abdominal pain; no vomiting and no diarrhea/loose stools Genitourinary: no dysuria and no hematuria Physical Exam Constitutional: + ill appearing Eyes: PERRL, conjunctivae normal, anicteric sclerae Neck: trachea midline, no thyromegaly Respiratory: normal respiratory effort, lungs clear to auscultation no respiratory distress Cardiovascular: RRR, no murmur, no edema Gastrointestinal (Abdomen): Inspection/Auscultation: + abdomen distended and + hypoactive bowel sounds Percussion/Palpation: + abdomen tender; no guarding Skin: + turgor decreased and + erythema (LLE) Results & Data Vital Signs (Past 12 Hours) Vital Signs Temp Pulse Pulse Resp BP Pulse Ox 09/12/18 15:11 37.1 C 92 H 19 162/68 H 97 09/12/18 10:50 37.0 C 93 H 20 123/65 95 09/12/18 07:38 37.1 C 95 H 22 134/69 94 09/12/18 06:20 91 H 09/12/18 04:17 36.7 C 88 18 124/65 96 Laboratory Results Laboratory Tests 09/10/18 09/12/18 09/12/18 20:30 05:18 05:18 WBC 15.42 H Hgb 11.2 L Hct 35.5 L Plt Count 155 Sodium 143 Potassium 5.4 H Chloride 112 H Carbon Dioxide 24 BUN 40 H Creatinine 2.61 H D Glucose 115 H Calcium 7.3 L Albumin 2.2 L Lipase 2351 H Urine Color Yellow Urine Appearance Clear Urine pH 5.5 Ur Specific [place] 1.016 Urine Protein Negative Urine Glucose (UA) Negative Urine Blood Negative Urine Nitrite Negative Ur Leukocyte Esterase Negative Diagnostic Findings MRCP 09/11/18: No biliary ductal dilatation. No choledocholithiasis. Cholelithiasis and moderate gallbladder distention. No convincing evidence for acute cholecystitis. Peripancreatic infiltration and fluid consistent with acute pancreatitis. No peripancreatic fluid collection. Gallbladder US 09/11/18: Liver is sonographically normal. Common bile duct is partially obscured measures approximately 8 mm in caliber. No common bile duct calculi are identified although sensitivity is diminished on this exam. There are multiple gallstones within the gallbladder with sludge. No sonographic Felix sign was reported. No gallbladder wall thickening was identified. The pancreas appears edematous. No peripancreatic fluid collection is identified. There is no right hydronephrosis. (1) Pancreatitis Acute pancreatitis complication: unspecified Chronicity: acute Pancreatitis type: other Qualified Code(s): K85.80 - Other acute pancreatitis without necrosis or infection
[2018-09-13] MEDS: SODIUM CHLORIDE 0.9% 1000ML 1,000 ML IV SCH (03:57)
[2018-09-13 07:00] LABS: Basophils # (auto) 0.01 K/uL (0-0.2); Basophils % (auto) 0.1 %; Eosinophils # (auto) 0.02 K/uL (0-0.5); Eosinophils % (auto) 0.2 %; Hematocrit (blood only) 34.6 % (37-47); Hemoglobin 10.9 g/dL (12.0-16.0); Immature Granulocytes # (auto) 0.06 K/uL (0.00-0.02); Immature Granulocytes % (auto) 0.5 %; Lymphocytes # (auto) 1.34 K/uL (1.2-3.4); Lymphocytes % (auto) 10.4 %; Mean Corpuscular Hgb Conc 31.5 g/dL (32-36); Mean Platelet Volume 11.3 fL (7.4-10.4); Monocytes % (auto) 4.6 %; Neutrophils # (auto) 10.91 K/uL (1.4-6.5); Neutrophils % (auto) 84.2 %; Platelet Count 156 K/uL (130-400); RDW Coefficient of Variation 14.2 % (11.5-14.5); RDW Standard Deviation 50.8 fL (36.4-46.3); Red Blood Count 3.53 M/uL (4.2-5.4); White Blood Count 12.94 K/uL (4.8-10.8)
[2018-09-13 07:22] LABS: BUN Creatinine Ratio 18.1 (10-20); Calcium 7.5 mg/dl (8.5-10.1); Creatinine Clr Calc Pharmacy 25.1 ml/min; Est GFR (African American) 25.2; Est GFR (Non-African American) 21.8; Potassium 4.7 mmol/L (3.5-5.1)
[2018-09-13 07:27] LABS: Albumin Globulin Ratio 0.5 (0.9-2); Bilirubin,Total 0.7 mg/dl (0.2-1)
[2018-09-13] MEDS: HEPARIN SOD 5,000 UNIT/0.5 ML VIAL SQ SCH ×2 (08:26→22:05)
[2018-09-13] MEDS: INSULIN HUMAN 70% NPH/30% REGULAR SQ SCH ×2 (08:26→16:43)
[2018-09-13] MEDS: PIPERACILLIN/TAZOBACTAM 4.5 GM in DEXTROSE 5% 100 ML IV SCH (08:31)
[2018-09-13] MEDS ORDERED: LEVOTHYROXINE SODIUM 35 MCG in SYRINGE 0 ML IV SCH (09:00)
--- NOTE | 2018-09-13 10:27 | Nephrology Progress Note ---
Date of Service September 13, 2018 Assessment & Plan (1) Acute kidney injury: -- LISA related to inflammation and intravascular volume contraction associated w/ pancreatitis -- Hold ARB and diuretic therapy -- Switch IVF from NSS to Normosol at 100 ml/hr -- Urinalysis is negative for blood or protein. No casts reported on microscopy -- Monitor UO, PRP (2) Chronic kidney disease, stage IV (severe): -- Baseline creatinine ~ 1.7 - 2.0 (3) Pancreatitis: (4) Cholelithiasis: (5) Hypertension: -- Hold ARB therapy (6) Diabetes mellitus: (7) Cellulitis of left lower extremity: -- IV Zosyn as per primary service Subjective Pt was seen and examined at bedside. Tmax 37.7C overnight. Dana feels tired but otherwise reasonably well. No subjective fevers or chills. No dyspnea. Remains on O2 2LNC. Abdominal discomfort improving. Remains NPO. Review of Systems Review of Systems: All systems reviewed & are unremarkable except as noted in HPI & below Physical Exam Constitutional: + ill appearing and + obese Eyes: PERRL, conjunctivae normal, anicteric sclerae Neck: trachea midline, no thyromegaly Respiratory: normal respiratory effort, lungs clear to auscultation no respiratory distress Cardiovascular: RRR, no murmur, no edema Gastrointestinal (Abdomen): Inspection/Auscultation: + abdomen distended and + hypoactive bowel sounds Percussion/Palpation: + abdomen tender; no guarding Musculoskeletal: Extremities: no cyanosis and no clubbing Skin: + turgor decreased and + erythema (LLE) Genitourinary: Bhatt draining concentrated yellow urine Results & Data Vital Signs (Past 12 Hours) Vital Signs Temp Pulse Pulse Resp BP Pulse Ox 09/13/18 07:33 37.0 C 97 H 20 149/68 H 97 09/13/18 06:20 92 H 09/13/18 05:00 37 C 09/13/18 04:09 37.7 C H 96 H 18 163/66 H 96 09/13/18 00:07 36.6 C 94 H 20 150/69 H 97 Laboratory Results Laboratory Results - last 24 hr 09/12/18 09/12/18 09/12/18 11:18 12:15 16:16 WBC RBC Hgb Hct MCV MCH MCHC RDW Std Deviation RDW Coeff of Brian Plt Count MPV Immature Gran % (Auto) Neut % (Auto) Lymph % (Auto) [place] % (Auto) Eos % (Auto) Baso % (Auto) Immature Gran # (Auto) Neut # (Auto) Lymph # (Auto) Kidder # (Auto) Eos # (Auto) Baso # (Auto) Sodium Potassium Chloride Carbon Dioxide Anion Gap BUN Creatinine Est Cr Clr Drug Dosing Est GFR ( Amer) Est GFR (Non-Af Amer) BUN/Creatinine Ratio Glucose POC Glucose 115 H 98 Calcium Total Bilirubin AST ALT Alkaline Phosphatase Total Protein Albumin Globulin Albumin/Globulin Ratio Lipase Nasal Screen MRSA (PCR) Negative 09/12/18 09/13/18 09/13/18 18:16 00:02 06:05 WBC 12.94 H RBC 3.53 L Hgb 10.9 L Hct 34.6 L MCV 98.0 MCH 30.9 MCHC 31.5 L RDW Std Deviation 50.8 H RDW Coeff of Brian 14.2 Plt Count 156 MPV 11.3 H Immature Gran % (Auto) 0.5 Neut % (Auto) 84.2 Lymph % (Auto) 10.4 Kidder % (Auto) 4.6 Eos % (Auto) 0.2 Baso % (Auto) 0.1 Immature Gran # (Auto) 0.06 H Neut # (Auto) 10.91 H Lymph # (Auto) 1.34 Kidder # (Auto) 0.60 H Eos # (Auto) 0.02 Baso # (Auto) 0.01 Sodium Potassium Chloride Carbon Dioxide Anion Gap BUN Creatinine Est Cr Clr Drug Dosing Est GFR ( Amer) Est GFR (Non-Af Amer) BUN/Creatinine Ratio Glucose POC Glucose 97 131 H Calcium Total Bilirubin AST ALT Alkaline Phosphatase Total Protein Albumin Globulin Albumin/Globulin Ratio Lipase Nasal Screen MRSA (PCR) 09/13/18 09/13/18 06:05 07:31 WBC RBC Hgb Hct MCV MCH MCHC RDW Std Deviation RDW Coeff of Brian Plt Count MPV Immature Gran % (Auto) Neut % (Auto) Lymph % (Auto) [place] % (Auto) Eos % (Auto) Baso % (Auto) Immature Gran # (Auto) Neut # (Auto) Lymph # (Auto) [place]der # (Auto) Eos # (Auto) Baso # (Auto) Sodium 141 Potassium 4.7 Chloride 113 H Carbon Dioxide 20 L Anion Gap 8.0 BUN 38 H Creatinine 2.07 H D Est Cr Clr Drug Dosing 25.1 Est GFR ( Amer) 25.2 Est GFR (Non-Af Amer) 21.8 BUN/Creatinine Ratio 18.1 Glucose 144 H POC Glucose 145 H Calcium 7.5 L Total Bilirubin 0.7 AST 26 ALT 22 Alkaline Phosphatase 66 Total Protein 6.0 L Albumin 2.0 L Globulin 4.0 Albumin/Globulin Ratio 0.5 L Lipase 291 Nasal Screen MRSA (PCR) (1) Pancreatitis Acute pancreatitis complication: unspecified Chronicity: acute Pancreatitis type: other Qualified Code(s): K85.80 - Other acute pancreatitis without necrosis or infection
[2018-09-13] MEDS: NORMOSOL-R 1,000 ML IV SCH ×2 (10:37→20:23)
--- NOTE | 2018-09-13 12:37 | Surgery Progress Note ---
Date of Service September 13, 2018 Assessment & Plan (1) Pancreatitis: Patient with acute pancreatitis and cholelithiasis but no evidence of cholecystitis or choledocholithiasis Clinically better today Would continue with conservative measures No indication for surgical intervention at this time Would continue to follow exam and white count Creatinine is returning back to baseline today Urine output has been adequate Subjective Feels better today Much less abdominal pain Passing flatus but no bowel movement as yet Denies nausea and vomiting Has remained afebrile Physical Exam Gastrointestinal (Abdomen): Inspection/Auscultation: + abdomen distended Percussion/Palpation: + abdomen tender (Epigastric area to moderate palpation) and abdomen soft Results & Data Vital Signs (Past 12 Hours) Vital Signs Temp Pulse Pulse Resp BP Pulse Ox 09/13/18 11:05 37.5 C 91 H 17 149/67 H 98 09/13/18 07:33 37.0 C 97 H 20 149/68 H 97 09/13/18 06:20 92 H 09/13/18 05:00 37 C 09/13/18 04:09 37.7 C H 96 H 18 163/66 H 96 Laboratory Results 09/13/18 09/13/18 09/13/18 Range/Units 11:08 07:31 06:05 WBC (4.8-10.8) K/uL RBC (4.2-5.4) M/uL Hgb (12.0-16.0) g/dL Hct (37-47) % MCV (80-100) fL MCH (25-34) pg MCHC (32-36) g/dL RDW Std Deviation (36.4-46.3) fL RDW Coeff of Brian (11.5-14.5) % Plt Count (130-400) K/uL MPV (7.4-10.4) fL Immature Gran % (Auto) % Neut % (Auto) % Lymph % (Auto) % [place] % (Auto) % Eos % (Auto) % Baso % (Auto) % Immature Gran # (Auto) (0.00-0.02) K/uL Neut # (Auto) (1.4-6.5) K/uL Lymph # (Auto) (1.2-3.4) K/uL [place] # (Auto) (0.11-0.59) K/uL Eos # (Auto) (0-0.5) K/uL Baso # (Auto) (0-0.2) K/uL Sodium 141 (136-145) mmol/L Potassium 4.7 (3.5-5.1) mmol/L Chloride 113 H (98-107) mmol/L Carbon Dioxide 20 L (21-32) mmol/L Anion Gap 8.0 (3-11) BUN 38 H (7-18) mg/dl Creatinine 2.07 H D (0.6-1.2) mg/dl Est Cr Clr Drug Dosing 25.1 ml/min Est GFR ( Amer) 25.2 Est GFR (Non-Af Amer) 21.8 BUN/Creatinine Ratio 18.1 (10-20) Glucose 144 H (70-99) mg/dl POC Glucose 165 H 145 H (70-99) Calcium 7.5 L (8.5-10.1) mg/dl Total Bilirubin 0.7 (0.2-1) mg/dl AST 26 (15-37) U/L ALT 22 (12-78) U/L Alkaline Phosphatase 66 (45-117) U/L Total Protein 6.0 L (6.4-8.2) gm/dl Albumin 2.0 L (3.4-5.0) gm/dl Globulin 4.0 (2.5-4.0) gm/dl Albumin/Globulin Ratio 0.5 L (0.9-2) Lipase 291 (73-393) U/L Nasal Screen MRSA (PCR) (Negative) 09/13/18 09/13/18 09/12/18 Range/Units 06:05 00:02 18:16 WBC 12.94 H (4.8-10.8) K/uL RBC 3.53 L (4.2-5.4) M/uL Hgb 10.9 L (12.0-16.0) g/dL Hct 34.6 L (37-47) % MCV 98.0 (80-100) fL MCH 30.9 (25-34) pg MCHC 31.5 L (32-36) g/dL RDW Std Deviation 50.8 H (36.4-46.3) fL RDW Coeff of Brian 14.2 (11.5-14.5) % Plt Count 156 (130-400) K/uL MPV 11.3 H (7.4-10.4) fL Immature Gran % (Auto) 0.5 % Neut % (Auto) 84.2 % Lymph % (Auto) 10.4 % [place] % (Auto) 4.6 % Eos % (Auto) 0.2 % Baso % (Auto) 0.1 % Immature Gran # (Auto) 0.06 H (0.00-0.02) K/uL Neut # (Auto) 10.91 H (1.4-6.5) K/uL Lymph # (Auto) 1.34 (1.2-3.4) K/uL [place] # (Auto) 0.60 H (0.11-0.59) K/uL Eos # (Auto) 0.02 (0-0.5) K/uL Baso # (Auto) 0.01 (0-0.2) K/uL Sodium (136-145) mmol/L Potassium (3.5-5.1) mmol/L Chloride (98-107) mmol/L Carbon Dioxide (21-32) mmol/L Anion Gap (3-11) BUN (7-18) mg/dl Creatinine (0.6-1.2) mg/dl Est Cr Clr Drug Dosing ml/min Est GFR ( Amer) Est GFR (Non-Af Amer) BUN/Creatinine Ratio (10-20) Glucose (70-99) mg/dl POC Glucose 131 H 97 (70-99) Calcium (8.5-10.1) mg/dl Total Bilirubin (0.2-1) mg/dl AST (15-37) U/L ALT (12-78) U/L Alkaline Phosphatase (45-117) U/L Total Protein (6.4-8.2) gm/dl Albumin (3.4-5.0) gm/dl Globulin (2.5-4.0) gm/dl Albumin/Globulin Ratio (0.9-2) Lipase (73-393) U/L Nasal Screen MRSA (PCR) (Negative) 09/12/18 09/12/18 Range/Units 16:16 11:18 WBC (4.8-10.8) K/uL RBC (4.2-5.4) M/uL Hgb (12.0-16.0) g/dL Hct (37-47) % MCV (80-100) fL MCH (25-34) pg MCHC (32-36) g/dL RDW Std Deviation (36.4-46.3) fL RDW Coeff of Brian (11.5-14.5) % Plt Count (130-400) K/uL MPV (7.4-10.4) fL Immature Gran % (Auto) % Neut % (Auto) % Lymph % (Auto) % [place] % (Auto) % Eos % (Auto) % Baso % (Auto) % Immature Gran # (Auto) (0.00-0.02) K/uL Neut # (Auto) (1.4-6.5) K/uL Lymph # (Auto) (1.2-3.4) K/uL [place] # (Auto) (0.11-0.59) K/uL Eos # (Auto) (0-0.5) K/uL Baso # (Auto) (0-0.2) K/uL Sodium (136-145) mmol/L Potassium (3.5-5.1) mmol/L Chloride (98-107) mmol/L Carbon Dioxide (21-32) mmol/L Anion Gap (3-11) BUN (7-18) mg/dl Creatinine (0.6-1.2) mg/dl Est Cr Clr Drug Dosing ml/min Est GFR ( Amer) Est GFR (Non-Af Amer) BUN/Creatinine Ratio (10-20) Glucose (70-99) mg/dl POC Glucose 98 (70-99) Calcium (8.5-10.1) mg/dl Total Bilirubin (0.2-1) mg/dl AST (15-37) U/L ALT (12-78) U/L Alkaline Phosphatase (45-117) U/L Total Protein (6.4-8.2) gm/dl Albumin (3.4-5.0) gm/dl Globulin (2.5-4.0) gm/dl Albumin/Globulin Ratio (0.9-2) Lipase (73-393) U/L Nasal Screen MRSA (PCR) Negative (Negative) (1) Pancreatitis Acute pancreatitis complication: unspecified Chronicity: acute Pancreatitis type: other Qualified Code(s): K85.80 - Other acute pancreatitis without necrosis or infection
[2018-09-13] MEDS ORDERED: ACETAMINOPHEN 325 MG TAB PO PRN (14:50)
--- NOTE | 2018-09-13 15:09 | Family Medicine Progress Note ---
Date of Service September 13, 2018 Assessment & Plan (1) Pancreatitis: RS 240-2 83-year-old female was admitted on 10 September 2018 for nausea, abdominal pain, and distention. Acute pancreatitis, cholelithiasis: Admit lipase 42,000. Likely secondary to gallbladder disease status post biliary ultrasound and MRCP. Denies alcohol use. On maintenance IVF. See GI and surgery notes. Recommended cholecystectomy once recovered. Improving LFTs and lipase. On morphine and Zofran (both PRN) for pain/nausea. Left lower extremity cellulitis, chronic venous insufficiency, chronic lower extremity edema: 05Jun started on Zosyn. Nasal MRSA negative. Febrile on 06Sep, since resolved. - Will stop zosyn and switch to cephalexin 500 mg PO q6h. Acute on chronic CKD stage IV: Baseline Cr around 1.7. Admit Cr 2.1, back to 2.07. UOP (oliguria) has improved a bit (up to 0.47 ml/kg/hr). See nephro notes. Holding ARB and torsemide. Continuing NS IVF and monitoring UOP. Pulmonary edema: 07Jun pCXR with possible trace pleural effusions. 08Jun TTE with EF 60-65%, normal LVSF (see full report). Presently on 2 L NC oxygen which is new. Likely from aggressive hydration for pancreatitis Hyperkalemia: Potassium is high as 5.7, improving. On telemetry. Monitoring. Ongoing medical issues: - Hypertension, hypertriglyceridemia: Restarting aspirin, olmesartan, and gemfibrozil now that off NPO. - Diabetes, neuropathy: At home, on insulin and gabapentin 200 mg p.o. nightly. --- Hold gabapentin due to renal issues. On insulin here. - Hypothyroidism: Prior partial thyroidectomy. Switch back to home levothyroxine PO. - Chronic anemia: Recent comparisons in hemoglobin 10's. Admit hemoglobin 11.5, stable. Monitoring. - Breast cancer s/p mastectomy in 2000. Morbid obesity (BMI 40). 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 Code status: DNR. Diet: Clear liquid diet. DVT prophy: Heparin twice daily. PT/OT: Deferred. Disbo: Admitted to PCU telemetry. (2) Cholelithiasis: (3) Cellulitis of left lower extremity: (4) Bilateral leg edema: (5) Acute kidney injury: (6) Chronic kidney disease, stage IV (severe): (7) Pulmonary edema: (8) Hyperkalemia: (9) Hypertension: (10) Hypertriglyceridemia: (11) Diabetes mellitus: (12) Neuropathy: (13) Hypothyroidism (acquired): (14) Chronic anemia: (15) History of breast cancer: (16) Morbid obesity: Supervising Physician Co-Signing Physician Notes Resident Physician Supervision Note: I independently interviewed and examined the patient and verified the brooks history and physical, reviewed labs and image studies, discussed the case with the resident Dr. Sears and agree with the findings and care plan. Subjective Found patient resting comfortably. She says overall that her abdominal discomfort has improved. Right now she denies any overt abdominal symptoms. When asked how her leg is doing, she says she is not sure but that it does not hurt. On review of systems, she says she has a little short of breath but is using her incentive spirometer. She denies any particular acute concerns. Review of Systems Review of Systems: Per HPI as above. Physical Exam Physical Exam: General Appearance: Awake, alert & oriented, comfortable in general, NAD. CV: +S1S2 RRR, no murmur. Pulm: Clear to auscultation throughout. On 2 L NC oxygen. Abdomen: +BS, soft, positive mild epigastric tenderness, obese habitus. Bhatt catheter in place. Extremities: 2-3+ bilateral lower extremity edema. The left leg from about the mid raymond distally to the ankle appears diffusely cellulitic with multiple areas of light weeping and skin breakdown. Is warm but does not seem to be tender to palpation. There are a couple of much smaller isolated pustular-like lesions on the right raymond. Both lower extremities have chronic lymphedema. Neuro: No gross neuro deficits. Results & Data Vital Signs (Past 12 Hours) Vital Signs Temp Pulse Pulse Resp BP Pulse Ox 09/13/18 11:05 37.5 C 91 H 17 149/67 H 98 09/13/18 07:33 37.0 C 97 H 20 149/68 H 97 09/13/18 06:20 92 H 09/13/18 05:00 37 C 09/13/18 04:09 37.7 C H 96 H 18 163/66 H 96 Laboratory Results 09/13/18 09/13/18 09/13/18 Range/Units 11:08 07:31 06:05 WBC (4.8-10.8) K/uL RBC (4.2-5.4) M/uL Hgb (12.0-16.0) g/dL Hct (37-47) % MCV (80-100) fL MCH (25-34) pg MCHC (32-36) g/dL RDW Std Deviation (36.4-46.3) fL RDW Coeff of Brian (11.5-14.5) % Plt Count (130-400) K/uL MPV (7.4-10.4) fL Immature Gran % (Auto) % Neut % (Auto) % Lymph % (Auto) % [place] % (Auto) % Eos % (Auto) % Baso % (Auto) % Immature Gran # (Auto) (0.00-0.02) K/uL Neut # (Auto) (1.4-6.5) K/uL Lymph # (Auto) (1.2-3.4) K/uL [place] # (Auto) (0.11-0.59) K/uL Eos # (Auto) (0-0.5) K/uL Baso # (Auto) (0-0.2) K/uL Sodium 141 (136-145) mmol/L Potassium 4.7 (3.5-5.1) mmol/L Chloride 113 H (98-107) mmol/L Carbon Dioxide 20 L (21-32) mmol/L Anion Gap 8.0 (3-11) BUN 38 H (7-18) mg/dl Creatinine 2.07 H D (0.6-1.2) mg/dl Est Cr Clr Drug Dosing 25.1 ml/min Est GFR ( Amer) 25.2 Est GFR (Non-Af Amer) 21.8 BUN/Creatinine Ratio 18.1 (10-20) Glucose 144 H (70-99) mg/dl POC Glucose 165 H 145 H (70-99) Calcium 7.5 L (8.5-10.1) mg/dl Total Bilirubin 0.7 (0.2-1) mg/dl AST 26 (15-37) U/L ALT 22 (12-78) U/L Alkaline Phosphatase 66 (45-117) U/L Total Protein 6.0 L (6.4-8.2) gm/dl Albumin 2.0 L (3.4-5.0) gm/dl Globulin 4.0 (2.5-4.0) gm/dl Albumin/Globulin Ratio 0.5 L (0.9-2) Lipase 291 (73-393) U/L 09/13/18 09/13/18 09/12/18 Range/Units 06:05 00:02 18:16 WBC 12.94 H (4.8-10.8) K/uL RBC 3.53 L (4.2-5.4) M/uL Hgb 10.9 L (12.0-16.0) g/dL Hct 34.6 L (37-47) % MCV 98.0 (80-100) fL MCH 30.9 (25-34) pg MCHC 31.5 L (32-36) g/dL RDW Std Deviation 50.8 H (36.4-46.3) fL RDW Coeff of Brian 14.2 (11.5-14.5) % Plt Count 156 (130-400) K/uL MPV 11.3 H (7.4-10.4) fL Immature Gran % (Auto) 0.5 % Neut % (Auto) 84.2 % Lymph % (Auto) 10.4 % [place] % (Auto) 4.6 % Eos % (Auto) 0.2 % Baso % (Auto) 0.1 % Immature Gran # (Auto) 0.06 H (0.00-0.02) K/uL Neut # (Auto) 10.91 H (1.4-6.5) K/uL Lymph # (Auto) 1.34 (1.2-3.4) K/uL [place] # (Auto) 0.60 H (0.11-0.59) K/uL Eos # (Auto) 0.02 (0-0.5) K/uL Baso # (Auto) 0.01 (0-0.2) K/uL Sodium (136-145) mmol/L Potassium (3.5-5.1) mmol/L Chloride (98-107) mmol/L Carbon Dioxide (21-32) mmol/L Anion Gap (3-11) BUN (7-18) mg/dl Creatinine (0.6-1.2) mg/dl Est Cr Clr Drug Dosing ml/min Est GFR ( Amer) Est GFR (Non-Af Amer) BUN/Creatinine Ratio (10-20) Glucose (70-99) mg/dl POC Glucose 131 H 97 (70-99) Calcium (8.5-10.1) mg/dl Total Bilirubin (0.2-1) mg/dl AST (15-37) U/L ALT (12-78) U/L Alkaline Phosphatase (45-117) U/L Total Protein (6.4-8.2) gm/dl Albumin (3.4-5.0) gm/dl Globulin (2.5-4.0) gm/dl Albumin/Globulin Ratio (0.9-2) Lipase (73-393) U/L 09/12/18 Range/Units 16:16 WBC (4.8-10.8) K/uL RBC (4.2-5.4) M/uL Hgb (12.0-16.0) g/dL Hct (37-47) % MCV (80-100) fL MCH (25-34) pg MCHC (32-36) g/dL RDW Std Deviation (36.4-46.3) fL RDW Coeff of Brian (11.5-14.5) % Plt Count (130-400) K/uL MPV (7.4-10.4) fL Immature Gran % (Auto) % Neut % (Auto) % Lymph % (Auto) % [place] % (Auto) % Eos % (Auto) % Baso % (Auto) % Immature Gran # (Auto) (0.00-0.02) K/uL Neut # (Auto) (1.4-6.5) K/uL Lymph # (Auto) (1.2-3.4) K/uL [place] # (Auto) (0.11-0.59) K/uL Eos # (Auto) (0-0.5) K/uL Baso # (Auto) (0-0.2) K/uL Sodium (136-145) mmol/L Potassium (3.5-5.1) mmol/L Chloride (98-107) mmol/L Carbon Dioxide (21-32) mmol/L Anion Gap (3-11) BUN (7-18) mg/dl Creatinine (0.6-1.2) mg/dl Est Cr Clr Drug Dosing ml/min Est GFR ( Amer) Est GFR (Non-Af Amer) BUN/Creatinine Ratio (10-20) Glucose (70-99) mg/dl POC Glucose 98 (70-99) Calcium (8.5-10.1) mg/dl Total Bilirubin (0.2-1) mg/dl AST (15-37) U/L ALT (12-78) U/L Alkaline Phosphatase (45-117) U/L Total Protein (6.4-8.2) gm/dl Albumin (3.4-5.0) gm/dl Globulin (2.5-4.0) gm/dl Albumin/Globulin Ratio (0.9-2) Lipase (73-393) U/L Medications Administered Current Inpatient Medications Acetaminophen (Tylenol) 650 mg PO Q4H PRN PRN Reason: Fever/pain Stop: 10/13/18 14:49 Aspirin (Ecotrin Ectab) 81 mg PO DAILY MALIK Stop: 10/14/18 08:59 Cephalexin HCl (Keflex) 500 mg PO QID MALIK Stop: 09/23/18 16:59 Dextrose (Dextrose 50%) 25 - 50 ml IV UD PRN; Protocol PRN Reason: Hypoglycemia Protocol Stop: 10/10/18 21:14 Gemfibrozil (Lopid) 600 mg PO QAM MALIK Stop: 10/14/18 08:59 Glucagon (Glucagen) 1 mg IM UD PRN; Protocol PRN Reason: Hypoglycemia Protocol Stop: 10/10/18 21:14 Glucose (Glucose 40%) 15 - 30 gm PO UD PRN; Protocol PRN Reason: Hypoglycemia Protocol Stop: 10/10/18 21:14 Glucose (Dex4 Glucose) 4 - 8 tabs PO UD PRN; Protocol PRN Reason: Hypoglycemia Protocol Stop: 10/10/18 21:14 Heparin Sodium (Porcine) (Heparin Sodium (Porcine)) 5,000 units SQ Q12 MALIK Stop: 10/10/18 20:59 Last Admin: 09/13/18 08:26 Dose: 5,000 units Documented by: Parenteral Electrolytes (Normosol-R) 1,000 mls @ 100 mls/hr IV .Q10H MALIK Stop: 10/13/18 10:29 Last Admin: 09/13/18 10:37 Dose: 100 mls/hr Documented by: Insulin Human Isoph/Insulin Regular (Novolin 70/30 Regular) 30 units SQ BIDM [facility] Stop: 10/11/18 07:59 Last Admin: 09/13/18 08:26 Dose: 30 units Documented by: Levothyroxine Sodium (Synthroid) 75 mcg PO QAM [facility] Stop: 10/14/18 08:59 Miscellaneous (Carbohydrates For Hypoglycemia) 15 - 30 gm PO UD PRN PRN Reason: Hypoglycemia Treatment Stop: 10/10/18 21:14 Morphine Sulfate (Morphine Sulfate) 3 mg IV Q2H PRN PRN Reason: Pain Stop: 09/24/18 20:08 Last Admin: 09/12/18 08:56 Dose: 3 mg Documented by: Non-Formulary Medication (Cholecalciferol (Vitamin D3) [Vitamin D3]) 2,000 units PO 3XWK [facility] Stop: 10/13/18 14:59 Non-Formulary Medication ([place] 1-Tkr-Kju-Fish Oil [Fish Oil]) [facility] [place] [facility]: 10/14/18 08:59 Olmesartan (Benicar) [facility] [place] Stop: 10/14/18 08:59 Ondansetron HCl (Zofran) 4 mg IV Q6H PRN PRN Reason: Nausea Stop: 10/10/18 20:08 Resident Activity Tracking Resident Involvement: Resident Care Provided Care Provided: Adult Hospital Medicine (1) Pancreatitis Acute pancreatitis complication: unspecified Chronicity: acute Pancreatitis type: other Qualified Code(s): K85.80 - Other acute pancreatitis without necrosis or infection
[2018-09-13] MEDS ORDERED: PIPERACILLIN/TAZOBACTAM 4.5 GM in DEXTROSE 5% 100 ML IV SCH (16:00)
[2018-09-13] MEDS: cephALEXin 250 MG CAP PO SCH ×2 (16:42→22:04)
[2018-09-14] MEDS: MoRPHine SULFATE 4 MG/ML 1 ML CARP\\VIAL IV PRN ×2 (01:51→08:25)
[2018-09-14 06:24] LABS: Hematocrit (blood only) 30.8 % (37-47); Hemoglobin 10.1 g/dL (12.0-16.0); Mean Corpuscular Hgb Conc 32.8 g/dL (32-36); Mean Corpuscular Volume 94.8 fL (80-100); Mean Platelet Volume 10.6 fL (7.4-10.4); Platelet Count 189 K/uL (130-400); RDW Coefficient of Variation 13.7 % (11.5-14.5); RDW Standard Deviation 47.6 fL (36.4-46.3); Red Blood Count 3.25 M/uL (4.2-5.4); White Blood Count 11.87 K/uL (4.8-10.8)
[2018-09-14] MEDS: cephALEXin 250 MG CAP PO SCH ×2 (06:29→13:45)
[2018-09-14] MEDS: LEVOTHYROXINE SODIUM 75 MCG TABLET PO SCH (06:29)
[2018-09-14] MEDS: NORMOSOL-R 1,000 ML IV SCH (06:32)
[2018-09-14 06:42] LABS: Basophils # (auto) 0.01 K/uL (0-0.2); Basophils % (auto) 0.1 %; Dohle Bodies 1+; Eosinophils # (auto) 0.02 K/uL (0-0.5); Eosinophils % (auto) 0.2 %; Immature Granulocytes # (auto) 0.04 K/uL (0.00-0.02); Immature Granulocytes % (auto) 0.3 %; Lymphocytes # (auto) 1.41 K/uL (1.2-3.4); Lymphocytes % (auto) 11.9 %; Monocytes # (auto) 0.92 K/uL (0.11-0.59); Monocytes % (auto) 7.8 %; Neutrophils # (auto) 9.47 K/uL (1.4-6.5); Neutrophils % (auto) 79.7 %
[2018-09-14 06:59] LABS: BUN Creatinine Ratio 23.7 (10-20); Calcium 7.9 mg/dl (8.5-10.1); Creatinine Clr Calc Pharmacy 31.8 ml/min; Est GFR (African American) 33.7; Potassium 4.5 mmol/L (3.5-5.1)
[2018-09-14] MEDS: ASPIRIN 81 MG ECTAB PO SCH (07:55)
[2018-09-14] MEDS: OLMESARTAN MEDOXOMIL 40 MG TAB PO SCH (07:55)
[2018-09-14] MEDS: GEMFIBROZIL 600 MG TAB PO SCH (07:55)
[2018-09-14] MEDS: HEPARIN SOD 5,000 UNIT/0.5 ML VIAL SQ SCH ×2 (07:56→21:03)
[2018-09-14] MEDS: INSULIN HUMAN 70% NPH/30% REGULAR SQ SCH ×2 (07:56→17:08)
[2018-09-14] MEDS: OMEGA-3 (PURIFIED FISH OIL) 1 GM CAP PO SCH (07:56)
--- NOTE | 2018-09-14 10:22 | XRay Report ---
XR chest 1V portable HISTORY: 83 years-old Female SOB acute shortness of breath COMPARISON: Chest radiograph 09/12/2018 TECHNIQUE: Portable AP view of the chest FINDINGS: Cardiac silhouette is enlarged, unchanged. Mild pulmonary vascular congestion. Airspace opacities of the left lung base redemonstrated. Eventration of the right hemidiaphragm. Trace pleural effusions ar e suggested. No pneumothorax or new opacities. Degenerative changes of the shoulders and spine. IMPRESSION: 1. Cardiomegaly with pulmonary vascular congestion. 2. Unchanged left basilar opacities suggestive of atelectasis or pneumonitis. 3. Probable trace pleural effusions. The above report was generated using voice recognition software. It may contain grammatical, syntax o r spelling errors. Electronically signed by: Roland Starr M.D. 09/14/2018 10:21 AM
--- NOTE | 2018-09-14 10:35 | Surgery Progress Note ---
Date of Service September 14, 2018 Assessment & Plan (1) Pancreatitis: Acute pancreatitis most likely gallstone related now stable with conservative therapy Has had mild temperature elevation Nontender so doubt acute cholecystitis Would consider repeating CAT scan to evaluate pancreas for areas of pseudocyst, abscess, necrosis Would continue clear liquids Subjective Appears a little more groggy this morning Denies nausea and vomiting Having minimal abdominal pain Passing flatus No bowel movement as yet Physical Exam Gastrointestinal (Abdomen): Inspection/Auscultation: + hypoactive bowel sounds; abdomen not distended Percussion/Palpation: abdomen soft; abdomen nontender Results & Data Vital Signs (Past 12 Hours) Vital Signs Temp Pulse Resp BP Pulse Ox 09/14/18 07:08 37.8 C H 97 H 24 142/71 H 95 09/14/18 04:12 37.1 C 98 H 22 151/71 H 95 09/13/18 23:41 37.3 C 98 H 24 165/62 H 94 Laboratory Results 09/14/18 09/14/18 09/13/18 Range/Units 05:58 05:58 20:49 WBC 11.87 H (4.8-10.8) K/uL RBC 3.25 L (4.2-5.4) M/uL Hgb 10.1 L (12.0-16.0) g/dL Hct 30.8 L (37-47) % MCV 94.8 (80-100) fL MCH 31.1 (25-34) pg MCHC 32.8 (32-36) g/dL RDW Std Deviation 47.6 H (36.4-46.3) fL RDW Coeff of Brian 13.7 (11.5-14.5) % Plt Count 189 (130-400) K/uL MPV 10.6 H (7.4-10.4) fL Immature Gran % (Auto) 0.3 % Neut % (Auto) 79.7 % Lymph % (Auto) 11.9 % [place] % (Auto) 7.8 % Eos % (Auto) 0.2 % Baso % (Auto) 0.1 % Immature Gran # (Auto) 0.04 H (0.00-0.02) K/uL Neut # (Auto) 9.47 H (1.4-6.5) K/uL Lymph # (Auto) 1.41 (1.2-3.4) K/uL [place] # (Auto) 0.92 H (0.11-0.59) K/uL Eos # (Auto) 0.02 (0-0.5) K/uL Baso # (Auto) 0.01 (0-0.2) K/uL Dohle Bodies 1+ Sodium 140 (136-145) mmol/L Potassium 4.5 (3.5-5.1) mmol/L Chloride 110 H (98-107) mmol/L Carbon Dioxide 21 (21-32) mmol/L Anion Gap 9.0 (3-11) BUN 39 H (7-18) mg/dl Creatinine 1.63 H D (0.6-1.2) mg/dl Est Cr Clr Drug Dosing 31.8 ml/min Est GFR ( Amer) 33.7 Est GFR (Non-Af Amer) 29.0 BUN/Creatinine Ratio 23.7 H (10-20) Glucose 153 H (70-99) mg/dl POC Glucose 129 H (70-99) Calcium 7.9 L (8.5-10.1) mg/dl 09/13/18 09/13/18 Range/Units 16:44 11:08 WBC (4.8-10.8) K/uL RBC (4.2-5.4) M/uL Hgb (12.0-16.0) g/dL Hct (37-47) % MCV (80-100) fL MCH (25-34) pg MCHC (32-36) g/dL RDW Std Deviation (36.4-46.3) fL RDW Coeff of Brian (11.5-14.5) % Plt Count (130-400) K/uL MPV (7.4-10.4) fL Immature Gran % (Auto) % Neut % (Auto) % Lymph % (Auto) % [place] % (Auto) % Eos % (Auto) % Baso % (Auto) % Immature Gran # (Auto) (0.00-0.02) K/uL Neut # (Auto) (1.4-6.5) K/uL Lymph # (Auto) (1.2-3.4) K/uL [place] # (Auto) (0.11-0.59) K/uL Eos # (Auto) (0-0.5) K/uL Baso # (Auto) (0-0.2) K/uL Dohle Bodies Sodium (136-145) mmol/L Potassium (3.5-5.1) mmol/L Chloride (98-107) mmol/L Carbon Dioxide (21-32) mmol/L Anion Gap (3-11) BUN (7-18) mg/dl Creatinine (0.6-1.2) mg/dl Est Cr Clr Drug Dosing ml/min Est GFR ( Amer) Est GFR (Non-Af Amer) BUN/Creatinine Ratio (10-20) Glucose (70-99) mg/dl POC Glucose 155 H 165 H (70-99) Calcium (8.5-10.1) mg/dl (1) Pancreatitis Acute pancreatitis complication: unspecified Chronicity: acute Pancreatitis type: other Qualified Code(s): K85.80 - Other acute pancreatitis without necrosis or infection
--- NOTE | 2018-09-14 10:35 | Nephrology Progress Note ---
Date of Service September 14, 2018 Assessment & Plan (1) Acute kidney injury: -- LISA related to inflammation and intravascular volume contraction associated w/ pancreatitis -- Continue to hold ARB and diuretic therapy -- Stop mIVF -- Goal is to maintain even fluid balance -- Urinalysis is negative for blood or protein. No casts reported on microscopy -- Monitor UO -- Repeat PRP tomorrow AM (2) Chronic kidney disease, stage IV (severe): -- Baseline creatinine ~ 1.7 - 2.0 (3) Pancreatitis: (4) Cholelithiasis: -- Surgery following, no plan to OR at this time (5) Hypertension: -- Hold ARB therapy (6) Diabetes mellitus: (7) Cellulitis of left lower extremity: -- IV Zosyn as per primary service Subjective No acute events overnight. Abdominal pain significantly improved. Appetite is good. Tolerating clear liquid diet. No fevers or chills. Review of Systems Review of Systems: All systems reviewed & are unremarkable except as noted in HPI & below Physical Exam Constitutional: + ill appearing and + obese Eyes: PERRL, conjunctivae normal, anicteric sclerae Neck: trachea midline, no thyromegaly Respiratory: normal respiratory effort, lungs clear to auscultation no respiratory distress Cardiovascular: RRR, no murmur, no edema Gastrointestinal (Abdomen): Inspection/Auscultation: + abdomen distended and + hypoactive bowel sounds Percussion/Palpation: + abdomen tender; no guarding Musculoskeletal: Extremities: no cyanosis and no clubbing Skin: + turgor decreased and + erythema (LLE) Results & Data Vital Signs (Past 12 Hours) Vital Signs Temp Pulse Resp BP Pulse Ox 09/14/18 07:08 37.8 C H 97 H 24 142/71 H 95 09/14/18 04:12 37.1 C 98 H 22 151/71 H 95 09/13/18 23:41 37.3 C 98 H 24 165/62 H 94 Laboratory Results Laboratory Results - last 24 hr 09/13/18 09/13/18 09/13/18 11:08 16:44 20:49 WBC RBC Hgb Hct MCV MCH MCHC RDW Std Deviation RDW Coeff of Brian Plt Count MPV Immature Gran % (Auto) Neut % (Auto) Lymph % (Auto) [place] % (Auto) Eos % (Auto) Baso % (Auto) Immature Gran # (Auto) Neut # (Auto) Lymph # (Auto) [place] # (Auto) Eos # (Auto) Baso # (Auto) Dohle Bodies Sodium Potassium Chloride Carbon Dioxide Anion Gap BUN Creatinine Est Cr Clr Drug Dosing Est GFR ( Amer) Est GFR (Non-Af Amer) BUN/Creatinine Ratio Glucose POC Glucose 165 H 155 H 129 H Calcium 09/14/18 09/14/18 05:58 05:58 WBC 11.87 H RBC 3.25 L Hgb 10.1 L Hct 30.8 L MCV 94.8 MCH 31.1 MCHC 32.8 RDW Std Deviation 47.6 H RDW Coeff of Brian 13.7 Plt Count 189 MPV 10.6 H Immature Gran % (Auto) 0.3 Neut % (Auto) 79.7 Lymph % (Auto) 11.9 [place] % (Auto) 7.8 Eos % (Auto) 0.2 Baso % (Auto) 0.1 Immature Gran # (Auto) 0.04 H Neut # (Auto) 9.47 H Lymph # (Auto) 1.41 [place] # (Auto) 0.92 H Eos # (Auto) 0.02 Baso # (Auto) 0.01 Dohle Bodies 1+ Sodium 140 Potassium 4.5 Chloride 110 H Carbon Dioxide 21 Anion Gap 9.0 BUN 39 H Creatinine 1.63 H D Est Cr Clr Drug Dosing 31.8 Est GFR ( Amer) 33.7 Est GFR (Non-Af Amer) 29.0 BUN/Creatinine Ratio 23.7 H Glucose 153 H POC Glucose Calcium 7.9 L (1) Pancreatitis Acute pancreatitis complication: unspecified Chronicity: acute Pancreatitis type: other Qualified Code(s): K85.80 - Other acute pancreatitis without necrosis or infection
[2018-09-14] MEDS ORDERED: FUROSEMIDE 40 MG in SYRINGE 0 ML IV ONE (11:00)
--- NOTE | 2018-09-14 11:54 | Ultrasound Report ---
BILATERAL LOWER EXTREMITY VENOUS DOPPLER HISTORY: Acute shortness of breath with bilateral lower cavity pain SOB, leg pain COMPARISON STUDY: Duplex venous Doppler study 12/10/2012 FINDINGS: There is normal compressibility, flow, and augmentation within the bilateral lower extremit y deep venous systems. Study limited secondary to patient body habitus. The calf veins are not diagno stically visualized. IMPRESSION: No DVT within the right or left lower extremity. Nonvisualization of the calf veins secondary to faina ent body habitus. Electronically signed by: Roland Starr M.D. 09/14/2018 11:53 AM
--- NOTE | 2018-09-14 13:13 | Family Medicine Progress Note ---
Date of Service September 14, 2018 Assessment & Plan (1) Pancreatitis: 83-year-old female was admitted on 10 September 2018 for nausea, abdominal pain, and distention. Acute pancreatitis, cholelithiasis: Admit lipase 42K. Likely secondary to gallbladder disease as seen on biliary u/s and MRCP. Denies alcohol use. See GI and surgery notes. Recommended cholecystectomy once recovered. Improving LFTs and lipase. On morphine and Zofran (both PRN) for pain/nausea. Discontinued her IVF. Left lower extremity cellulitis, chronic venous insufficiency, chronic lower extremity edema: 05Jun started on Zosyn. Nasal MRSA negative. Febrile on 06Jun, since resolved. 08Jun switched to cephalexin 500 mg PO q6h. Pulmonary edema: 07Jun pCXR with possible trace pleural effusions. 08Jun TTE with EF 60-65%, normal LVSF (see full report). Presently on 2 L NC oxygen which is new. Concern for aggressive hydration for pancreatitis. This AM, to have new SOB and tachypnea. C/o bilateral leg pains worse than baseline. Habitus limits exam but no overt rales on auscultation. Legs appear grossly the same as yesterday. Her elevated Cr (though improving) precludes CTA looking for PE, though she is not tachycardic or overtly hypoxic. 09Jun CXR roughly unchanged. 09Jun BLE u/s with no evidence of DVT. Given Lasix 40 mg IV x 1. Acute on chronic CKD stage IV: Baseline Cr around 1.7. Admit Cr 2.1, down to 1.63. Oliguria has improved. See nephrology notes. Holding ARB and torsemide. Off of IVF. Hyperkalemia: K as high as 5.7, resolved. On telemetry. Monitoring. Acute on chronic anemia: Recent comparisons in Hb 10's. Admit Hb 11.5, down to 10.1. Monitoring. Ongoing medical issues: - Hypertension, hypertriglyceridemia: Restarting aspirin, olmesartan, and gemfibrozil now that off NPO. - Diabetes, neuropathy: At home, on insulin and gabapentin 200 mg p.o. nightly. --- Hold gabapentin due to renal issues. On insulin here. - Hypothyroidism: Prior partial thyroidectomy. On levothyroxine PO. - Breast cancer s/p mastectomy in 2000. Morbid obesity (BMI 40). 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 Code status: DNR. Diet: Clear liquid diet. DVT prophy: Heparin twice daily. PT/OT: Deferred. Disbo: Admitted to PCU telemetry. (2) Cholelithiasis: (3) Cellulitis of left lower extremity: (4) Bilateral leg edema: (5) Acute kidney injury: (6) Chronic kidney disease, stage IV (severe): (7) Pulmonary edema: (8) Hyperkalemia: (9) Hypertension: (10) Hypertriglyceridemia: (11) Diabetes mellitus: (12) Neuropathy: (13) Hypothyroidism (acquired): (14) Chronic anemia: (15) History of breast cancer: (16) Morbid obesity: Supervising Physician Co-Signing Physician Notes Resident Physician Supervision Note: I independently interviewed and examined the patient and verified the brooks histo ry and physical, reviewed labs and image studies, discussed the case with the resident Dr. Sears and agree with the findings and care plan. Subjective Found patient lying upright in bed. She says that both of her legs, left > right, seem to hurt more than yesterday. She says her abdomen continues to feel improved and is not her primary concern. When noted that she appears more short of breath than yesterday, patient denies overt SOB but is only answering questions in 1-2 word responses. No other particular patient concerns. Review of Systems Review of Systems: Per HPI as above. Physical Exam Physical Exam: General Appearance: Awake, alert & oriented, tachypneic but not in overt distress. CV: +S1S2 borderline tachycardic, no murmur. Pulm: Tachypneic in 20s. CTA (B). On 2 L NC oxygen. Abdomen: +BS, soft, positive mild epigastric tenderness, obese habitus. Bhatt catheter in place. Extremities: 2-3+ bilateral lower extremity edema. The left leg from about the mid raymond distally to the ankle appears diffusely cellulitic with multiple areas of light weeping and skin breakdown. Is warm but does not seem to be tender to palpation. There are a couple of much smaller isolated pustular-like lesions on the right raymond. Both lower extremities have chronic lymphedema. [Overall, exam seems unchanged from yesterday.] Neuro: No gross neuro deficits. Results & Data Vital Signs (Past 12 Hours) Vital Signs Temp Pulse Resp BP Pulse Ox 06/09/19 11:14 37.2 C 107 H 14 171/68 H 94 09/14/18 07:08 37.8 C H 97 H 24 142/71 H 95 09/14/18 04:12 37.1 C 98 H 22 151/71 H 95 Laboratory Results 09/14/18 09/14/18 09/13/18 Range/Units 05:58 05:58 20:49 WBC 11.87 H (4.8-10.8) K/uL RBC 3.25 L (4.2-5.4) M/uL Hgb 10.1 L (12.0-16.0) g/dL Hct 30.8 L (37-47) % MCV 94.8 (80-100) fL MCH 31.1 (25-34) pg MCHC 32.8 (32-36) g/dL RDW Std Deviation 47.6 H (36.4-46.3) fL RDW Coeff of Brian 13.7 (11.5-14.5) % Plt Count 189 (130-400) K/uL MPV 10.6 H (7.4-10.4) fL Immature Gran % (Auto) 0.3 % Neut % (Auto) 79.7 % Lymph % (Auto) 11.9 % [place] % (Auto) 7.8 % Eos % (Auto) 0.2 % Baso % (Auto) 0.1 % Immature Gran # (Auto) 0.04 H (0.00-0.02) K/uL Neut # (Auto) 9.47 H (1.4-6.5) K/uL Lymph # (Auto) 1.41 (1.2-3.4) K/uL [place] # (Auto) 0.92 H (0.11-0.59) K/uL Eos # (Auto) 0.02 (0-0.5) K/uL Baso # (Auto) 0.01 (0-0.2) K/uL Dohle Bodies 1+ Sodium 140 (136-145) mmol/L Potassium 4.5 (3.5-5.1) mmol/L Chloride 110 H (98-107) mmol/L Carbon Dioxide 21 (21-32) mmol/L Anion Gap 9.0 (3-11) BUN 39 H (7-18) mg/dl Creatinine 1.63 H D (0.6-1.2) mg/dl Est Cr Clr Drug Dosing 31.8 ml/min Est GFR ( Amer) 33.7 Est GFR (Non-Af Amer) 29.0 BUN/Creatinine Ratio 23.7 H (10-20) Glucose 153 H (70-99) mg/dl POC Glucose 129 H (70-99) Calcium 7.9 L (8.5-10.1) mg/dl 09/13/18 Range/Units 16:44 WBC (4.8-10.8) K/uL RBC (4.2-5.4) M/uL Hgb (12.0-16.0) g/dL Hct (37-47) % MCV (80-100) fL MCH (25-34) pg MCHC (32-36) g/dL RDW Std Deviation (36.4-46.3) fL RDW Coeff of Brian (11.5-14.5) % Plt Count (130-400) K/uL MPV (7.4-10.4) fL Immature Gran % (Auto) % Neut % (Auto) % Lymph % (Auto) % [place] % (Auto) % Eos % (Auto) % Baso % (Auto) % Immature Gran # (Auto) (0.00-0.02) K/uL Neut # (Auto) (1.4-6.5) K/uL Lymph # (Auto) (1.2-3.4) K/uL [place] # (Auto) (0.11-0.59) K/uL Eos # (Auto) (0-0.5) K/uL Baso # (Auto) (0-0.2) K/uL Dohle Bodies Sodium (136-145) mmol/L Potassium (3.5-5.1) mmol/L Chloride (98-107) mmol/L Carbon Dioxide (21-32) mmol/L Anion Gap (3-11) BUN (7-18) mg/dl Creatinine (0.6-1.2) mg/dl Est Cr Clr Drug Dosing ml/min Est GFR ( Amer) Est GFR (Non-Af Amer) BUN/Creatinine Ratio (10-20) Glucose (70-99) mg/dl POC Glucose 155 H (70-99) Calcium (8.5-10.1) mg/dl Medications Administered Current Inpatient Medications Acetaminophen (Tylenol) 650 mg PO Q4H PRN PRN Reason: Fever/pain Stop: 10/13/18 14:49 Aspirin (Ecotrin Ectab) 81 mg PO DAILY [facility] Stop: 10/14/18 08:59 Last Admin: 09/14/18 07:55 Dose: 81 mg Documented by: Cephalexin HCl (Keflex) 250 mg PO Q8 [facility] Stop: 09/23/18 15:29 Last Admin: 09/14/18 06:29 Dose: 250 mg Documented by: Dextrose (Dextrose 50%) 25 - 50 ml IV UD PRN; Protocol PRN Reason: Hypoglycemia Protocol Stop: 10/10/18 21:14 Fish Oil ([place]-3 (Purified Fish Oil)) 1 gm PO QAM [facility] Stop: 10/14/18 08:59 Last Admin: 09/14/18 07:56 Dose: 1 gm Documented by: Gemfibrozil (Lopid) 600 mg PO QAM [facility] Stop: 10/14/18 08:59 Last Admin: 09/14/18 07:55 Dose: 600 mg Documented by: Glucagon (Glucagen) 1 mg IM UD PRN; Protocol PRN Reason: Hypoglycemia Protocol Stop: 10/10/18 21:14 Glucose (Glucose 40%) 15 - 30 gm PO UD PRN; Protocol PRN Reason: Hypoglycemia Protocol Stop: 10/10/18 21:14 Glucose (Dex4 Glucose) 4 - 8 tabs PO UD PRN; Protocol PRN Reason: Hypoglycemia Protocol Stop: 10/10/18 21:14 Heparin Sodium (Porcine) (Heparin Sodium (Porcine)) 5,000 units SQ Q12 [facility] Stop: 10/10/18 20:59 Last Admin: 09/14/18 07:56 Dose: 5,000 units Documented by: Insulin Human Isoph/Insulin Regular (Novolin 70/30 Regular) 30 units SQ BIDM [facility] Stop: 10/11/18 07:59 Last Admin: 09/14/18 07:56 Dose: 30 units Documented by: Levothyroxine Sodium (Synthroid) 75 mcg PO DAILYBB [facility] Stop: 10/14/18 06:29 Last Admin: 09/14/18 06:29 Dose: 75 mcg Documented by: Miscellaneous (Carbohydrates For Hypoglycemia) 15 - 30 gm PO UD PRN PRN Reason: Hypoglycemia Treatment Stop: 10/10/18 21:14 Morphine Sulfate (Morphine Sulfate) 3 mg IV Q2H PRN PRN Reason: Pain Stop: 09/24/18 20:08 Last Admin: 09/14/18 08:25 Dose: 3 mg Documented by: Olmesartan (Benicar) 40 mg PO QAM [facility] Stop: 10/14/18 08:59 Last Admin: 09/14/18 07:55 Dose: 40 mg Documented by: Ondansetron HCl (Zofran) 4 mg IV Q6H PRN PRN Reason: Nausea Stop: 10/10/18 20:08 Vitamin D (Vitamin D3) 2,000 units PO MoWeFr@0900 [facility] Stop: 10/15/18 08:59 Resident Activity Tracking Resident Involvement: Resident Care Provided Care Provided: Adult Hospital Medicine (1) Pancreatitis Acute pancreatitis complication: unspecified Chronicity: acute Pancreatitis type: other Qualified Code(s): K85.80 - Other acute pancreatitis without necrosis or infection
[2018-09-14] MEDS ORDERED: PIPERACILL/TAZOBAC CONSULT ACTIVE PRN (15:12)
[2018-09-14] MEDS ORDERED: PIPERACILLIN/TAZOBACTAM 4.5 GM in DEXTROSE 5% 100 ML IV ONE (15:30)
[2018-09-14 16:08] LABS: BUN Creatinine Ratio 22.8 (10-20); Calcium 7.9 mg/dl (8.5-10.1); Creatinine Clr Calc Pharmacy 28.7 ml/min; Est GFR (African American) 29.7; Est GFR (Non-African American) 25.6; Potassium 4.5 mmol/L (3.5-5.1)
--- NOTE | 2018-09-14 16:28 | CT Scan Report ---
ABDOMEN AND PELVIS CT WITHOUT CONTRAST CT DOSE: 1512.20 mGy.cm HISTORY: Acute tachycardia in a patient with acute pancreatitis f/u pancreatitis, new tachycardia - NON-CONTRAST TECHNIQUE: Multiaxial CT images of the abdomen and pelvis were performed without contrast. A dose lo wering technique was utilized adhering to the principles of ALARA. COMPARISON STUDY: CT abdomen and pelvis 09/10/2018, MRCP 09/11/2018. FINDINGS: Small bilateral pleural effusions. Subsegmental right basilar consolidative and groundglass opacities are noted with bibasilar bronchial wall thickening and mild mucous plugging. There is no pneumatosis or pneumoperitoneum. Imaged inferior cardiac chambers are moderately enlarged. Trace pericardial eff usion. Gallbladder distention without definite evidence of acute cholecystitis. Limited evaluation of the so lid abdominal organs without the use of IV contrast. Within the limitations of the study, the liver, spleen and adrenal glands are unremarkable. Extensive interstitial and peripancreatic inflammation wi th trace free fluid about the anterior pararenal space extending into the central mesentery has progr essed from prior. Additionally, there is small volume of abdominopelvic ascites, notably about the in ferior pericolic gutters and dependent pelvis. No focal acute peripancreatic fluid collection. Nonspecific bilateral perinephric stranding. Cortical thinning with mildly trophic appearance of the bilateral kidneys. No hydronephrosis. Bhatt catheter noted within a decompressed or bladder lumen. Co arse calcification of the left mid uterus may reflect a calcified fibroid. No adnexal mass lesions. E xtensive calcification of the abdominal aorta without aneurysm. No adenopathy. No bowel obstruction. Mild wall thickening of the duodenum is likely reactive. Mild to moderate formed stool about the dist al sigmoid and rectum. No evidence of acute appendicitis. Mild generalized body wall edema. Tiny fat filled periumbilical hernia, diastases of 1.7 cm. Degenerative changes of the spine, pelvis and hips. Severe degenerative changes with chronic remodeling of the left femoral acetabular joint. Moderate t o severe disuse atrophy about the left thigh and buttock musculature. IMPRESSION: 1. Progressively worsened extensive interstitial and peripancreatic inflammation compatible with wors ening acute interstitial edematous pancreatitis. No acute peripancreatic fluid collection. There is h owever a small volume of abdominopelvic ascites with small bilateral pleural effusions and moderate g eneralized body wall edema which is new from prior. 2. Gallbladder distention without definite evidence of acute cholecystitis redemonstrated. 3. No bowel obstruction, pneumatosis or pneumoperitoneum. Electronically signed by: Roland Starr M.D. 09/14/2018 4:26 PM
[2018-09-14 17:19] LABS: Albumin Level 1.8 gm/dl (3.4-5.0); Bilirubin Direct 0.2 mg/dl (0-0.2); Bilirubin,Total 0.4 mg/dl (0.2-1); Total Protein 5.8 gm/dl (6.4-8.2)
--- NOTE | 2018-09-14 19:13 | Ultrasound Report ---
US abdomen limited HISTORY: 83 years-old Female evaluation of portal system acute right upper quadrant abdominal pain COMPARISON: CT abdomen and pelvis same day TECHNIQUE: Multiple real-time sonographic images of the abdominal right upper quadrant were obtained assessing grayscale appearance and color flow FINDINGS: Limited study secondary to patient body habitus and condition. Heterogeneous appearance of the visual ized pancreas. Pancreatic duct measures 5 mm at the level the pancreatic head. No drainable fluid col lection. Increased echogenicity of the liver appears heterogeneous measuring up to 18.8 cm in length. No focal hepatic mass lesion or definite marginal nodularity. Patent portal vein demonstrating hepatopedal flow. Cholelithiasis with gallbladder distention. The ga llbladder wall measures in the upper limits of normal at 3 mm Sonographic Felix sign reported as neg ative (the patient was recently medicated with pain medication). 8 mm common bile duct. No choledocho lithiasis. Imaged right kidney is unremarkable. Right pleural effusion incidentally noted. IMPRESSION: 1. Patent main portal vein with hepatopedal flow. 2. Heterogeneous appearance of the imaged pancreas. Please refer to CT abdomen and pelvis of same day for further discussion of the acute pancreatitis findings. 3. Cholelithiasis with gallbladder distention. The gallbladder wall measures within the upper limits of normal. Correlate clinically to exclude acute cholecystitis. The above report was generated using voice recognition software. It may contain grammatical, syntax o r spelling errors. Electronically signed by: Roland Starr M.D. 09/14/2018 7:12 PM
[2018-09-14] MEDS ORDERED: cephALEXin 500 MG CAP PO SCH (21:00)
[2018-09-14] MEDS: PIPERACILLIN/TAZOBACTAM 4.5 GM in DEXTROSE 5% 100 ML IV SCH (21:10)
[2018-09-15] MEDS: PIPERACILLIN/TAZOBACTAM 4.5 GM in DEXTROSE 5% 100 ML IV SCH ×3 (04:50→20:29)
[2018-09-15 06:29] LABS: Basophils # (auto) 0.02 K/uL (0-0.2); Basophils % (auto) 0.2 %; Eosinophils # (auto) 0.08 K/uL (0-0.5); Eosinophils % (auto) 0.7 %; Hematocrit (blood only) 30.9 % (37-47); Hemoglobin 9.9 g/dL (12.0-16.0); Immature Granulocytes # (auto) 0.07 K/uL (0.00-0.02); Immature Granulocytes % (auto) 0.6 %; Lymphocytes # (auto) 1.38 K/uL (1.2-3.4); Lymphocytes % (auto) 11.4 %; Mean Corpuscular Volume 94.5 fL (80-100); Mean Platelet Volume 10.9 fL (7.4-10.4); Monocytes # (auto) 1.01 K/uL (0.11-0.59); Monocytes % (auto) 8.4 %; Neutrophils # (auto) 9.53 K/uL (1.4-6.5); Neutrophils % (auto) 78.7 %; Platelet Count 198 K/uL (130-400); RDW Coefficient of Variation 13.9 % (11.5-14.5); RDW Standard Deviation 48.2 fL (36.4-46.3); Red Blood Count 3.27 M/uL (4.2-5.4); White Blood Count 12.09 K/uL (4.8-10.8)
[2018-09-15 06:32] LABS: BUN Creatinine Ratio 23.2 (10-20); Calcium 8.3 mg/dl (8.5-10.1); Creatinine Clr Calc Pharmacy 28.2 ml/min; Est GFR (African American) 29.1; Est GFR (Non-African American) 25.1; Potassium 4.5 mmol/L (3.5-5.1)
[2018-09-15] MEDS: LEVOTHYROXINE SODIUM 75 MCG TABLET PO SCH (06:38)
[2018-09-15] MEDS: INSULIN HUMAN 70% NPH/30% REGULAR SQ SCH ×2 (08:41→17:28)
[2018-09-15] MEDS: HEPARIN SOD 5,000 UNIT/0.5 ML VIAL SQ SCH ×2 (08:41→20:35)
[2018-09-15] MEDS: OLMESARTAN MEDOXOMIL 40 MG TAB PO SCH (08:47)
[2018-09-15] MEDS: OMEGA-3 (PURIFIED FISH OIL) 1 GM CAP PO SCH (08:47)
[2018-09-15] MEDS: CHOLECALCIFEROL 1,000 UNITS TAB PO SCH (08:48)
[2018-09-15] MEDS: ASPIRIN 81 MG ECTAB PO SCH (08:48)
[2018-09-15] MEDS: GEMFIBROZIL 600 MG TAB PO SCH (08:48)
[2018-09-15] MEDS ORDERED: METOPROLOL TARTRATE 1 MG/ML VIAL IV STA (08:52)
[2018-09-15] MEDS: MoRPHine SULFATE 4 MG/ML 1 ML CARP\\VIAL IV PRN (08:52)
--- NOTE | 2018-09-15 09:42 | Gastroenterology Progress Note ---
Date of Service September 15, 2018 Assessment & Plan (1) Pancreatitis: CT with evidence of persistent pancreatitis without findings of necrosis or pseudocyst. Patient has no abdominal pain complaints this AM. -Continue conservative management at present with NPO status, IV fluids, pain control (though patient has no abdominal pain at present) -See cholelithiasis Present on Admission?: Yes (2) Cholelithiasis: US & CT scan show cholelithiasis without cholecystitis. Persistence of pancreatitis on imaging. LFTs are unremarkable. -Continue IV Zosyn -General surgery following, will defer further plans for cholelithiasis to them -Continue to monitor vitals -Continue to monitor LFTs Thank you for allowing us to participate in the care of this patient. If you should have any further questions or concerns, do not hesitate to contact us. Present on Admission?: Yes Supervising Physician Co-Signing Physician Notes Agree with MICHELLE Dudley as above Abd: Soft, NT, ND, +BS Patient denies any abd pain at this time Continue current therapy Continue supportive care Surgery and Nephrology are following patient Subjective Patient is an 83 yo female with multiple medical issues. GI is following for cholelithiasis & pancreatitis. After spiking a fever on 09/14, the patient underwent repeat US & CT scans of the abdomen. Again, neither indicated an acute cholecystitis but did indicated gallbladder distenstion with cholelithiasis. Scans also indicated worsening pancreatitis without evidence of necrosis or pseudocyst. She was febrile this AM with a temp of 38 C and this has since improved to 36.8. T bili is 0.4, D bili is 0.2, AST 18, ALT 17, Alk phos 62. Her WBC count is 12.09. The patient denies abdominal pain or nausea at present. Her only complaint this AM is leg pain. She is currently on Zosyn therapy and is being followed by surgery. Review of Systems Constitutional: no fever Respiratory: no cough and no dyspnea Cardiovascular: no chest pain Gastrointestinal: no abdominal pain, no bloating, no heartburn, no nausea and no vomiting Musculoskeletal: leg pain Physical Exam Constitutional: WD/WN, vitals as above Respiratory: normal respiratory effort, lungs clear to auscultation Cardiovascular: Rate/Rhythm: regular rate Gastrointestinal (Abdomen): normal bowel sounds, soft, nontender, no hepatosplenomegaly Results & Data Vital Signs (Past 12 Hours) Vital Signs Temp Pulse Pulse Resp BP Pulse Ox 09/15/18 09:20 100 H 09/15/18 08:00 36.8 C 09/15/18 07:26 38.1 C H 106 H 20 152/74 H 96 09/15/18 04:53 37.3 C 100 H 21 134/68 97 09/14/18 23:29 37.6 C H 99 H 21 133/67 97 (1) Pancreatitis Acute pancreatitis complication: unspecified Chronicity: acute Pancreatitis type: other Qualified Code(s): K85.80 - Other acute pancreatitis without necrosis or infection
--- NOTE | 2018-09-15 10:42 | Nephrology Progress Note ---
Date of Service September 15, 2018 Assessment & Plan (1) Acute kidney injury: LISA related to inflammation and intravascular volume contraction associated w/ pancreatitis. AK resolved and renal function now back to baseline. She is volume overloaded however remain non-oliguric. -- Continue to hold ARB and diuretic therapy -- Stop mIVF -- Goal is to maintain even fluid balance -- okay to give diuretics as needed if she continues to be positive, recommend starting with Lasix 40 mg p.o. daily -- please schedule for follow-up at [facility] on discharge with Dr. Bhatt Will sign off (2) Chronic kidney disease, stage IV (severe): -- Baseline creatinine ~ 1.7 - 2.0 (3) Pancreatitis: (4) Cholelithiasis: -- Surgery following, no plan to OR at this time (5) Hypertension: -- Hold ARB therapy (6) Diabetes mellitus: (7) Cellulitis of left lower extremity: -- IV Zosyn as per primary service Subjective Dana was seen examined in her room this morning. Overall she is feeling better, denies shortness of breath, chest pain. Remain non-oliguric however she is more than 1 L positive. Renal function stable at baseline, electrolyte acceptable. Review of Systems Review of Systems: Detailed review of system otherwise unremarkable. Physical Exam Constitutional: WD/WN, vitals as above + ill appearing and + obese Respiratory: normal respiratory effort, lungs clear to auscultation Cardiovascular: Rate/Rhythm: regular rate and regular rhythm Heart Sounds: normal S1 and normal S2 Extremities: + edema Neurologic: moves all extremities and awake Psychiatric: A+Ox3, euthymic affect Results & Data Vital Signs (Past 12 Hours) Vital Signs Temp Pulse Pulse Resp BP Pulse Ox 09/15/18 09:20 100 H 09/15/18 08:00 36.8 C 09/15/18 07:26 38.1 C H 106 H 20 152/74 H 96 09/15/18 06:39 104 H 09/15/18 04:53 37.3 C 100 H 21 134/68 97 09/14/18 23:29 37.6 C H 99 H 21 133/67 97 (1) Pancreatitis Acute pancreatitis complication: unspecified Chronicity: acute Pancreatitis type: other Qualified Code(s): K85.80 - Other acute pancreatitis without necrosis or infection
--- NOTE | 2018-09-15 11:55 | Progress Note ---
Date of Service September 15, 2018 Assessment & Plan (1) Pancreatitis: 83 yo female with gallstone pancreatitis. Repeat CT scan shows worsening pancreatitis. Will eventually need a cholecystectomy, but will need to wait for inflammation from significant pancreatitis to improve. Surgical timing to be determined. While ideally surgery is performed during the same hospitalization, given the severity of the pancreatitis may need to wait a prolonged period prior to interventing surgically, especially since no signs of acute cholecystitis. Continue conservative management with hydration, aggressive pulmonary hygiene/incentive spirometry use. Continue clear liquids. Ideally would be able to advance diet, possibly tomorrow, but if unable to tolerate will need to consider starting PPN/TPN. Acute pancreatitis complication: unspecified Chronicity: acute Pancreatitis type: other Qualified Code(s): K85.80 - Other acute pancreatitis without necrosis or infection Subjective Pt states abdominal pain is somewhat improved, main complaint is LLE pain. Denies dyspnea though appears to have uncomfortable respirations. CT scan was repeated yesterday. Physical Exam Constitutional: mild distress, appears weak Respiratory: labored breathing Gastrointestinal (Abdomen): distended and firm especially in epigastrium, mild epigastric tenderness Musculoskeletal: significant edema in all four extremities Results & Data Vital Signs (Past 12 Hours) Vital Signs Temp Pulse Pulse Resp BP Pulse Ox 09/15/18 10:39 36.9 C 84 19 112/64 96 09/15/18 09:20 100 H 09/15/18 08:00 36.8 C 09/15/18 07:26 38.1 C H 106 H 20 152/74 H 96 09/15/18 06:39 104 H 09/15/18 04:53 37.3 C 100 H 21 134/68 97 Laboratory Results 09/15/18 09/15/18 09/15/18 Range/Units 11:23 07:24 05:47 WBC (4.8-10.8) K/uL RBC (4.2-5.4) M/uL Hgb (12.0-16.0) g/dL Hct (37-47) % MCV (80-100) fL MCH (25-34) pg MCHC (32-36) g/dL RDW Std Deviation (36.4-46.3) fL RDW Coeff of Brian (11.5-14.5) % Plt Count (130-400) K/uL MPV (7.4-10.4) fL Immature Gran % (Auto) % Neut % (Auto) % Lymph % (Auto) % [place] % (Auto) % Eos % (Auto) % Baso % (Auto) % Immature Gran # (Auto) (0.00-0.02) K/uL Neut # (Auto) (1.4-6.5) K/uL Lymph # (Auto) (1.2-3.4) K/uL [place] # (Auto) (0.11-0.59) K/uL Eos # (Auto) (0-0.5) K/uL Baso # (Auto) (0-0.2) K/uL Sodium 139 (136-145) mmol/L Potassium 4.5 (3.5-5.1) mmol/L Chloride 109 H (98-107) mmol/L Carbon Dioxide 23 (21-32) mmol/L Anion Gap 7.0 (3-11) BUN 43 H (7-18) mg/dl Creatinine 1.84 H (0.6-1.2) mg/dl Est Cr Clr Drug Dosing 28.2 ml/min Est GFR ( Amer) 29.1 Est GFR (Non-Af Amer) 25.1 BUN/Creatinine Ratio 23.2 H (10-20) Glucose 135 H (70-99) mg/dl POC Glucose 235 H 140 H (70-99) Calcium 8.3 L (8.5-10.1) mg/dl Total Bilirubin (0.2-1) mg/dl Direct Bilirubin (0-0.2) mg/dl AST (15-37) U/L ALT (12-78) U/L Alkaline Phosphatase (45-117) U/L Total Protein (6.4-8.2) gm/dl Albumin (3.4-5.0) gm/dl 09/15/18 09/14/18 09/14/18 Range/Units 05:47 20:35 16:29 WBC 12.09 H (4.8-10.8) K/uL RBC 3.27 L (4.2-5.4) M/uL Hgb 9.9 L (12.0-16.0) g/dL Hct 30.9 L (37-47) % MCV 94.5 (80-100) fL MCH 30.3 (25-34) pg MCHC 32.0 (32-36) g/dL RDW Std Deviation 48.2 H (36.4-46.3) fL RDW Coeff of Brian 13.9 (11.5-14.5) % Plt Count 198 (130-400) K/uL MPV 10.9 H (7.4-10.4) fL Immature Gran % (Auto) 0.6 % Neut % (Auto) 78.7 % Lymph % (Auto) 11.4 % [place] % (Auto) 8.4 % Eos % (Auto) 0.7 % Baso % (Auto) 0.2 % Immature Gran # (Auto) 0.07 H (0.00-0.02) K/uL Neut # (Auto) 9.53 H (1.4-6.5) K/uL Lymph # (Auto) 1.38 (1.2-3.4) K/uL [place] # (Auto) 1.01 H (0.11-0.59) K/uL Eos # (Auto) 0.08 (0-0.5) K/uL Baso # (Auto) 0.02 (0-0.2) K/uL Sodium (136-145) mmol/L Potassium (3.5-5.1) mmol/L Chloride (98-107) mmol/L Carbon Dioxide (21-32) mmol/L Anion Gap (3-11) BUN (7-18) mg/dl Creatinine (0.6-1.2) mg/dl Est Cr Clr Drug Dosing ml/min Est GFR ( Amer) Est GFR (Non-Af Amer) BUN/Creatinine Ratio (10-20) Glucose (70-99) mg/dl POC Glucose 140 H 202 H (70-99) Calcium (8.5-10.1) mg/dl Total Bilirubin (0.2-1) mg/dl Direct Bilirubin (0-0.2) mg/dl AST (15-37) U/L ALT (12-78) U/L Alkaline Phosphatase (45-117) U/L Total Protein (6.4-8.2) gm/dl Albumin (3.4-5.0) gm/dl 09/14/18 09/14/18 Range/Units 15:27 15:27 WBC (4.8-10.8) K/uL RBC (4.2-5.4) M/uL Hgb (12.0-16.0) g/dL Hct (37-47) % MCV (80-100) fL MCH (25-34) pg MCHC (32-36) g/dL RDW Std Deviation (36.4-46.3) fL RDW Coeff of Brian (11.5-14.5) % Plt Count (130-400) K/uL MPV (7.4-10.4) fL Immature Gran % (Auto) % Neut % (Auto) % Lymph % (Auto) % [place] % (Auto) % Eos % (Auto) % Baso % (Auto) % Immature Gran # (Auto) (0.00-0.02) K/uL Neut # (Auto) (1.4-6.5) K/uL Lymph # (Auto) (1.2-3.4) K/uL [place] # (Auto) (0.11-0.59) K/uL Eos # (Auto) (0-0.5) K/uL Baso # (Auto) (0-0.2) K/uL Sodium 138 (136-145) mmol/L Potassium 4.5 (3.5-5.1) mmol/L Chloride 107 (98-107) mmol/L Carbon Dioxide 22 (21-32) mmol/L Anion Gap 9.0 (3-11) BUN 41 H (7-18) mg/dl Creatinine 1.81 H (0.6-1.2) mg/dl Est Cr Clr Drug Dosing 28.7 ml/min Est GFR ( Amer) 29.7 Est GFR (Non-Af Amer) 25.6 BUN/Creatinine Ratio 22.8 H (10-20) Glucose 199 H (70-99) mg/dl POC Glucose (70-99) Calcium 7.9 L (8.5-10.1) mg/dl Total Bilirubin 0.4 (0.2-1) mg/dl Direct Bilirubin 0.2 (0-0.2) mg/dl AST 18 (15-37) U/L ALT 17 (12-78) U/L Alkaline Phosphatase 62 (45-117) U/L Total Protein 5.8 L (6.4-8.2) gm/dl Albumin 1.8 L (3.4-5.0) gm/dl Diagnostic Findings (09/14/18) CT Abdomen/Pelvis: FINDINGS: Small bilateral pleural effusions. Subsegmental right basilar consolidative and groundglass opacities are noted with bibasilar bronchial wall thickening and mild mucous plugging. There is no pneumatosis or pneumoperitoneum. Imaged inferior cardiac chambers are moderately enlarged. Trace pericardial effusion. Gallbladder distention without definite evidence of acute cholecystitis. Limited evaluation of the solid abdominal organs without the use of IV contrast. Within the limitations of the study, the liver, spleen and adrenal glands are unremarkable. Extensive interstitial and peripancreatic inflammation with trace free fluid about the anterior pararenal space extending into the central mesentery has progressed from prior. Additionally, there is small volume of abdominopelvic ascites, notably about the inferior pericolic gutters and dependent pelvis. No focal acute peripancreatic fluid collection. Nonspecific bilateral perinephric stranding. Cortical thinning with mildly trophic appearance of the bilateral kidneys. No hydronephrosis. Bhatt catheter noted within a decompressed or bladder lumen. Coarse calcification of the left mid uterus may reflect a calcified fibroid. No adnexal mass lesions. Extensive calcification of the abdominal aorta without aneurysm. No adenopathy. No bowel obstruction. Mild wall thickening of the duodenum is likely reactive. Mild to moderate formed stool about the distal sigmoid and rectum. No evidence of acute appendicitis. Mild generalized body wall edema. Tiny fat filled periumbilical hernia, diastases of 1.7 cm. Degenerative changes of the spine, pelvis and hips. Severe degenerative changes with chronic remodeling of the left femoral acetabular joint. Moderate to severe disuse atrophy about the left thigh and buttock musculature. IMPRESSION: 1. Progressively worsened extensive interstitial and peripancreatic inflammation compatible with worsening acute interstitial edematous pancreatitis. No acute peripancreatic fluid collection. There is however a small volume of abdominopelvic ascites with small bilateral pleural effusions and moderate generalized body wall edema which is new from prior. 2. Gallbladder distention without definite evidence of acute cholecystitis redemonstrated. 3. No bowel obstruction, pneumatosis or pneumoperitoneum. (09/14/18) RUQ U/S: FINDINGS: Limited study secondary to patient body habitus and condition. Heterogeneous appearance of the visualized pancreas. Pancreatic duct measures 5 mm at the level the pancreatic head. No drainable fluid collection. Increased echogenicity of the liver appears heterogeneous measuring up to 18.8 cm in length. No focal hepatic mass lesion or definite marginal nodularity. Patent portal vein demonstrating hepatopedal flow. Cholelithiasis with gallbladder distention. The gallbladder wall measures in the upper limits of normal at 3 mm Sonographic Felix sign reported as negative (the patient was rec ently medicated with pain medication). 8 mm common bile duct. No choledocholithiasis. Imaged right kidney is unremarkable. Right pleural effusion incidentally noted. IMPRESSION: 1. Patent main portal vein with hepatopedal flow. 2. Heterogeneous appearance of the imaged pancreas. Please refer to CT abdomen and pelvis of same day for further discussion of the acute pancreatitis findings. 3. Cholelithiasis with gallbladder distention. The gallbladder wall measures within the upper limits of normal. Correlate clinically to exclude acute cholecystitis.
[2018-09-15 12:45] LABS: Albumin Level 1.6 gm/dl (3.4-5.0); Calcium 8.1 mg/dl (8.5-10.1); Creatinine Clr Calc Pharmacy 28.4 ml/min; Est GFR (African American) 28.1; Est GFR (Non-African American) 24.3; Potassium 4.4 mmol/L (3.5-5.1)
[2018-09-15 12:48] LABS: Albumin Globulin Ratio 0.4 (0.9-2); Bilirubin,Total 0.5 mg/dl (0.2-1); Globulin 4.2 gm/dl (2.5-4.0); Total Protein 5.8 gm/dl (6.4-8.2)
--- NOTE | 2018-09-15 13:45 | Family Medicine Progress Note ---
Date of Service September 15, 2018 Assessment & Plan (1) Pancreatitis: 83-year-old female was admitted on 10 September 2018 for nausea, abdominal pain, and distention. H/o Hypertension, hypertriglyceridemia, diabetes, neuropathy, hypothyroidism: Prior partial thyroidectomy, breast cancer s/p mastectomy in 2000. Morbid obesity (BMI 40). 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 Acute pancreatitis, cholelithiasis - Repeat CT yesterday showed progressive pancreatitis - Treating supportively, but continuing to hold fluids in the setting of pleural effusion, hypoxia - Surgery and GI following - Follow fever curve - Continue pain management - Continue empiric Zosyn, ppx GI source + LE cellulitis coverage Atrial fibrillation, new - Converted with one dose of IV Lopressor - Reviewed ECHO - Follow on telemetry, initiate PO metoprolol 25 mg daily - CHADVASC 9.8%. On ppx anticoagulation, no indication for bridge, will address adding Vitk antagonist vs NOAC at discharge. Pulmonary edema, hypoxia - Hypoxia, tachypnea improving today - 07Jun pCXR with possible trace pleural effusions. - 08Jun TTE with EF 60-65%, normal LVSF (see full report). Concern for aggressive hydration for pancreatitis. Acute on chronic CKD stage IV - Baseline Cr around 1.7. Admit Cr 2.1, down to 1.84. Oliguria has improved. See nephrology notes. Holding ARB and torsemide. Off of IVF. Acute on chronic anemia - Recent comparisons in Hb 10's. Admit Hb 11.5, down to 9.9. Monitoring. Hypertension, hypertriglyceridemia - continue ASA, holding olmesartan, and gemfibrozil now that off NPO. Diabetes, neuropathy - At home, on insulin and gabapentin 200 mg p.o. nightly - Hold gabapentin due to renal issues. On insulin here Hypothyroidism - Prior partial thyroidectomy. On levothyroxine PO Breast cancer s/p mastectomy in 2000 - Morbid obesity (BMI 40). 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 Code status: DNR. Diet: Clear liquid diet. DVT prophy: Heparin twice daily. PT/OT: Deferred. Dispo: Admitted to PCU telemetry. (2) Cellulitis of left lower extremity: (3) Cholelithiasis: (4) Abdominal pain: (5) Nausea & vomiting: (6) Hypothyroidism (acquired): (7) Diabetes mellitus: (8) Chronic anemia: (9) Afib: (10) Acute kidney injury: (11) Pulmonary edema: Supervising Physician Co-Signing Physician Notes I personally examined the patient and verified all brooks points of history and exam, discussed case, and agree with decision making with Dr Rebolledo. Feeling surprisingly good. No abdominal pain. Eating clear liquids and a series of abdominal pain. No nausea no vomiting. Breathing feels good. Moving her bowels Vitals noted, in general she is awake and alert pleasant no distress. HEENT normocephalic atraumatic mucous membranes moist. Breathing unlabored no acces donnie muscle use, lungs sound to be clear although somewhat difficult exam but no rales rhonchi or wheezes good effort. Abdomen is soft mildly distended nontender no masses organomegaly. Pancreatitislikely stone related, no indications for an acutely retained stone. Clinically she appears to be improving after apparently a setback yesterday. She is on a full liquid/low-fat diet, continue this for now, advance diet as possible, continue supportive care. Cholelithiasisstone most likely culprit for pancreatitis, timing of cholecystectomy depending on her recovery from the pancreatitis. New onset atrial fibrillationshe will warrant anticoagulation, but does not require bridging, given that she will likely need surgery we will hold off for now. Rate controlled. Otherwise as above Subjective The patient is doing much better this morning. She is alert and oriented in bed. She states that she is tolerating a clear liquid diet. She states that her abdominal pain has improved. Review of Systems Review of Systems: All systems reviewed & are unremarkable except as noted in HPI & below Physical Exam Eyes: PERRL, conjunctivae normal, anicteric sclerae ENMT: external ear and nose normal, oropharynx normal Neck: trachea midline, no thyromegaly Respiratory: normal respiratory effort, lungs clear to auscultation Cardiovascular: RRR, no murmur, no edema Gastrointestinal (Abdomen): Inspection/Auscultation: abdomen normal to inspection and normal bowel sounds; abdomen not distended Percussion/Palpation: abdomen nontender, no guarding and abdomen not rigid Musculoskeletal: no cyanosis or clubbing, extremities motor strength 5/5 Skin: no rashes, warm and dry Neurologic: PERRL, EOMI, accommodation nl, no face palsy, no dysarthria Results & Data Vital Signs (Past 12 Hours) Vital Signs Temp Pulse Pulse Resp BP Pulse Ox 09/15/18 10:39 36.9 C 84 19 112/64 96 09/15/18 09:20 100 H 09/15/18 08:00 36.8 C 09/15/18 07:26 38.1 C H 106 H 20 152/74 H 96 09/15/18 06:39 104 H 09/15/18 04:53 37.3 C 100 H 21 134/68 97 (1) Pancreatitis Acute pancreatitis complication: unspecified Chronicity: acute Pancreatitis type: other Qualified Code(s): K85.80 - Other acute pancreatitis without necrosis or infection (2) Nausea & vomiting Vomiting Intractability: unspecified Vomiting type: unspecified Qualified Code(s): R11.2 - Nausea with vomiting, unspecified (3) Abdominal pain Abdominal location: unspecified location Qualified Code(s): R10.9 - Unspecified abdominal pain
[2018-09-15] MEDS: METOPROLOL SUCC 25MG EXT REL TAB PO SCH (20:35)
[2018-09-16] MEDS: PIPERACILLIN/TAZOBACTAM 4.5 GM in DEXTROSE 5% 100 ML IV SCH ×3 (03:42→20:41)
[2018-09-16] MEDS: LEVOTHYROXINE SODIUM 75 MCG TABLET PO SCH (05:59)
[2018-09-16 06:36] LABS: Basophils # (auto) 0.02 K/uL (0-0.2); Basophils % (auto) 0.1 %; Eosinophils # (auto) 0.09 K/uL (0-0.5); Eosinophils % (auto) 0.7 %; Hematocrit (blood only) 28.2 % (37-47); Hemoglobin 9.3 g/dL (12.0-16.0); Immature Granulocytes # (auto) 0.11 K/uL (0.00-0.02); Immature Granulocytes % (auto) 0.8 %; Lymphocytes # (auto) 1.54 K/uL (1.2-3.4); Lymphocytes % (auto) 11.1 %; Mean Corpuscular Volume 93.4 fL (80-100); Mean Platelet Volume 10.5 fL (7.4-10.4); Monocytes # (auto) 1.33 K/uL (0.11-0.59); Monocytes % (auto) 9.6 %; Neutrophils # (auto) 10.75 K/uL (1.4-6.5); Neutrophils % (auto) 77.7 %; Platelet Count 201 K/uL (130-400); RDW Coefficient of Variation 13.9 % (11.5-14.5); RDW Standard Deviation 47.7 fL (36.4-46.3); Red Blood Count 3.02 M/uL (4.2-5.4); White Blood Count 13.84 K/uL (4.8-10.8)
[2018-09-16 07:13] LABS: Albumin Level 1.5 gm/dl (3.4-5.0); BUN Creatinine Ratio 22.4 (10-20); Calcium 8.2 mg/dl (8.5-10.1); Creatinine Clr Calc Pharmacy 23.6 ml/min; Est GFR (African American) 22.8; Est GFR (Non-African American) 19.7; Potassium 4.3 mmol/L (3.5-5.1)
[2018-09-16 07:16] LABS: Albumin Globulin Ratio 0.4 (0.9-2); Bilirubin,Total 0.5 mg/dl (0.2-1); Globulin 4.1 gm/dl (2.5-4.0); Total Protein 5.6 gm/dl (6.4-8.2)
[2018-09-16] MEDS: ASPIRIN 81 MG ECTAB PO SCH (08:06)
[2018-09-16] MEDS: OLMESARTAN MEDOXOMIL 40 MG TAB PO SCH (08:06)
[2018-09-16] MEDS: OMEGA-3 (PURIFIED FISH OIL) 1 GM CAP PO SCH (08:06)
[2018-09-16] MEDS: GEMFIBROZIL 600 MG TAB PO SCH (08:06)
[2018-09-16] MEDS: HEPARIN SOD 5,000 UNIT/0.5 ML VIAL SQ SCH ×2 (08:06→20:34)
[2018-09-16] MEDS: INSULIN HUMAN 70% NPH/30% REGULAR SQ SCH ×2 (08:07→16:32)
[2018-09-16] MEDS ORDERED: BUMETANIDE 0.5 MG in SYRINGE 0 ML IV ONE (09:30)
--- NOTE | 2018-09-16 09:47 | Nephrology Progress Note ---
Date of Service September 16, 2018 Assessment & Plan (1) Acute kidney injury: LISA related to inflammation and intravascular volume contraction associated w/ pancreatitis. AK resolved and renal function now back to baseline. She is volume overloaded however remain non-oliguric. Slight worsening renal function today however electrolyte remain acceptable. -- give Bumex 2 mg IV x1 dose now -- Goal is to maintain even fluid balance -- please schedule for follow-up at [facility] on discharge with Dr. Bhatt Will follow (2) Chronic kidney disease, stage IV (severe): -- Baseline creatinine ~ 1.7 - 2.0 (3) Pancreatitis: (4) Cholelithiasis: -- Surgery following, no plan to OR at this time (5) Hypertension: -- Hold ARB therapy (6) Diabetes mellitus: (7) Cellulitis of left lower extremity: -- IV Zosyn as per primary service Subjective Dana was seen and examined this morning. She seems is much more lethargic today compared to yesterday. Denies any shortness of breath or chest pain however she seems to be having some trouble breathing while talking. Renal function slightly worsened today, electrolyte remain acceptable. She is non oliguric however net positive almost 500 mL and since admission she has positive more than 11 L. volume status difficult to assess but she is significant lower extremity and some upper extremity edema. Physical Exam Constitutional: WD/WN, vitals as above + ill appearing and + obese Respiratory: normal respiratory effort, lungs clear to auscultation Cardiovascular: Rate/Rhythm: regular rate and regular rhythm Heart Sounds: normal S1 and normal S2 Extremities: + edema Neurologic: moves all extremities and awake Psychiatric: A+Ox3, euthymic affect Results & Data Vital Signs (Past 12 Hours) Vital Signs Temp Pulse Resp BP Pulse Ox 09/16/18 07:05 37.3 C 92 H 19 144/66 H 95 09/16/18 03:11 37.6 C H 98 H 26 H 123/61 95 09/15/18 23:31 37.6 C H 95 H 22 124/63 95 (1) Pancreatitis Acute pancreatitis complication: unspecified Chronicity: acute Pancreatitis type: other Qualified Code(s): K85.80 - Other acute pancreatitis without necrosis or infection
--- NOTE | 2018-09-16 11:27 | Family Medicine Progress Note ---
Date of Service September 16, 2018 Assessment & Plan (1) Pancreatitis: 83-year-old female was admitted on 10 September 2018 for nausea, abdominal pain, and distention. H/o Hypertension, hypertriglyceridemia, diabetes, neuropathy, hypothyroidism: Prior partial thyroidectomy, breast cancer s/p mastectomy in 2000. Morbid obesity (BMI 40). 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 Acute pancreatitis, cholelithiasis - Repeat CT yesterday showed progressive pancreatitis - Treating supportively, but continuing to hold fluids in the setting of pleural effusion, hypoxia - Surgery and GI following - Follow fever curve - Continue pain management - Continue empiric Zosyn, ppx GI source + LE cellulitis coverage Febrile illness Considering pancreatitis as source, in addition to other potential causes; pneumonia, UTI, bacteremia Obtained blood cultures, chest x-ray, UA, MRSA nares Continue Zosyn, will add vancomycin if MRSA is positive Atrial fibrillation, new - Converted with one dose of IV Lopressor - Reviewed ECHO - Follow on telemetry, initiate PO metoprolol 25 mg daily - CHADVASC 9.8%. On ppx anticoagulation, no indication for bridge, will address adding Vitk antagonist vs NOAC at discharge. Pulmonary edema, hypoxia - Hypoxia, tachypnea improving today - 07Jun pCXR with possible trace pleural effusions. - 08Jun TTE with EF 60-65%, normal LVSF (see full report). Concern for aggressive hydration for pancreatitis. Acute on chronic CKD stage IV - Baseline Cr around 1.7. Oliguria has improved. See nephrology notes. Holding ARB and torsemide. Off of IVF. Acute on chronic anemia - Recent comparisons in Hb 10's. Monitoring. Hypertension, hypertriglyceridemia - continue ASA, holding olmesartan, and gemfibrozil now that off NPO. Diabetes, neuropathy - At home, on insulin and gabapentin 200 mg p.o. nightly - Hold gabapentin due to renal issues. On insulin here Hypothyroidism - Prior partial thyroidectomy. On levothyroxine PO Breast cancer s/p mastectomy in 2000 - Morbid obesity (BMI 40). 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 Code status: DNR. Diet: Clear liquid diet. DVT prophy: Heparin twice daily. PT/OT: Deferred. Dispo: Admitted to PCU telemetry. (2) Cellulitis of left lower extremity: Continue intravenous Zosyn therapy started in the ED. (3) Cholelithiasis: (4) Abdominal pain: (5) Nausea & vomiting: (6) Hypothyroidism (acquired): (7) Diabetes mellitus: Basal insulin dosage will be decreased by 50%. Sliding scale coverage (8) Chronic anemia: Supervising Physician Co-Signing Physician Notes I personally examined the patient and verified all brooks points of history and exam, discussed case, and agree with decision making with Dr Rebolledo. Seen twice today. This morning feeling about the same. No significant shortness of breath no abdominal pain. Later revisited and she is a little bit harder with breathing and feels warm Vitals noted, in general she is awake and alert pleasant no distress on first visit, later just appears generically uncomfortable. HEENT normocephalic atraumatic mucous membranes moist. Lungs quiet but clear without rales rhonchi or wheezes earlier today, then later this afternoon has mild but clearly notable left-sided only wheezing. No rales no rhonchi good effort no accessory muscle use. Abdomen soft nondistended nontender both exams Pancreatitislikely stone related, no indications for an acutely retained stone. Clinically she appears to be improving slowly with this. Feversthe differential for this was related to her pancreatitis, versus atelectasis, versus secondary infection. Given her compromised state of secondary infection work-up was undertaken, and it is somewhat suspicious that she has a healthcare associated pneumonia Healthcare associated pneumoniagiven her ongoing fevers, chest x-ray, and focal wheezing that corroborates the chest x-ray, we have to look at this is notes nosocomial pneumonia. Having previously been on Zosyn will be helpful, checking MRSA nares, if this is positive we will add vancomycin, if it is negative we will change gram-negative coverage. Cholelithiasisstone most likely culprit for pancreatitis, timing of cholecystectomy depending on her recovery from the pancreatitis and pneumonia. New onset atrial fibrillationshe will warrant anticoagulation, but does not require bridging, given that she will likely need surgery we will hold off for now. Rate control has been easy to obtain DVT prophylaxisheparin subcu Otherwise as above Subjective This morning the patient states that she is doing well. She denies having any issues breathing and she says that her abdominal pain is better. She is tolerating a clear liquid diet. She states that her legs are painful when she is moved in bed, but otherwise she is not having any pain. See attending note below for afternoon course. Review of Systems Review of Systems: All systems reviewed & are unremarkable except as noted in HPI & below Physical Exam Constitutional: well developed, well nourished and + obese Eyes: PERRL, conjunctivae normal, anicteric sclerae ENMT: external ear and nose normal, oropharynx normal Neck: trachea midline, no thyromegaly Respiratory: normal respiratory effort, lungs clear to auscultation Cardiovascular: RRR, no murmur, no edema Gastrointestinal (Abdomen): normal bowel sounds, soft, nontender, no hepatosplenomegaly Skin: Bilateral lower extremity edema, erythema of the distal one third left lower extremity stable to improving Results & Data Vital Signs (Past 12 Hours) Vital Signs Temp Pulse Resp BP Pulse Ox 09/16/18 07:05 37.3 C 92 H 19 144/66 H 95 09/16/18 03:11 37.6 C H 98 H 26 H 123/61 95 09/15/18 23:31 37.6 C H 95 H 22 124/63 95 Resident Activity Tracking Resident Involvement: Resident Care Provided Care Provided: Adult Hospital Medicine (1) Pancreatitis Acute pancreatitis complication: unspecified Chronicity: acute Pancreatitis type: other Qualified Code(s): K85.80 - Other acute pancreatitis without necrosis or infection (2) Abdominal pain Abdominal location: unspecified location Qualified Code(s): R10.9 - Unspecified abdominal pain (3) Nausea & vomiting Vomiting Intractability: unspecified Vomiting type: unspecified Qualified Code(s): R11.2 - Nausea with vomiting, unspecified
--- NOTE | 2018-09-16 12:34 | XRay Report ---
XR chest 1V portable HISTORY: 83 years-old Female fever acute shortness of breath with fever COMPARISON: Chest radiograph 09/14/2018 TECHNIQUE: Portable AP view of the chest FINDINGS: Cardiac silhouette is enlarged, unchanged. No overt pulmonary edema. Small left pleural effusion with left basilar opacities. The right lung is clear. No pneumothorax. Degenerative changes of the should ers and spine. IMPRESSION: 1. Unchanged small left pleural effusion with left lung base opacities suggestive of atelectasis or p neumonitis. 2. Cardiomegaly without overt pulmonary edema. The above report was generated using voice recognition software. It may contain grammatical, syntax o r spelling errors. Electronically signed by: Roland Starr M.D. 09/16/2018 12:33 PM
--- NOTE | 2018-09-16 12:41 | Surgery Progress Note ---
Date of Service September 16, 2018 Assessment & Plan (1) Pancreatitis: 83 yo female with gallstone pancreatitis. Repeat CT scan shows worsening pancreatitis. Will eventually need a cholecystectomy, but will need to wait for inflammation from significant pancreatitis to improve. Surgical timing to be determined. While ideally surgery is performed during the same hospitalization, given the severity of the pancreatitis may need to wait a prolonged period prior to intervening surgically, especially since no signs of acute cholecystitis. - Continue conservative management with hydration, aggressive pulmonary hygiene/incentive spirometry use. - continue full liquids - incentive spirometry 10x/hour - consider breathing treatment? - continue Bhatt for I/O, monitor creatinine. - Given rise in BUN/Creatinine and wbc with fevers may need to consider repeat CT scan in near future to assess severity of pancreatitis and to ensure no development of necrosis or pseudocyst. Clinically patient is having no abdominal pain but she was having minimal abdominal pain when she recently had repeat CT scan which showed worsening interstitial inflammation of the pancreas. - will follow along Dr. Morales has seen and examined pt, agrees with above Subjective feeling better today, pain still present in left lower leg (no change) no abdominal pain tolerating full liquids, no nausea or vomiting + bowel movement occasionally short of breath Physical Exam Constitutional: + morbidly obese; no acute distress Respiratory: no labored breathing, no retractions and does not use accessory muscles Auscultation: + rales and + wheezes Gastrointestinal (Abdomen): Inspection/Auscultation: + abdomen distended and + hypoactive bowel sounds; + abnormal bowel sounds Percussion/Palpation: a bdomen soft; abdomen nontender, no guarding and abdomen not rigid Musculoskeletal: +2 pitting edema of bilateral lower extremity and upper extremity chronic venous insufficiency of the left lower extremity with erythema Skin: no rashes, warm and dry Psychiatric: Orientation: alert and oriented x 3 Affect: + flat affect Results & Data Vital Signs (Past 12 Hours) Vital Signs Temp Pulse Resp BP Pulse Ox 09/16/18 11:45 36.9 C 80 19 143/61 H 94 09/16/18 07:05 37.3 C 92 H 19 144/66 H 95 09/16/18 03:11 37.6 C H 98 H 26 H 123/61 95 (1) Pancreatitis Acute pancreatitis complication: unspecified Chronicity: acute Pancreatitis type: other Qualified Code(s): K85.80 - Other acute pancreatitis without n ecrosis or infection
[2018-09-16 12:53] LABS: Appearance Urine Turbid (Clear); Bilirubin Urine Negative (Negative); Blood Urine 1+ (Negative); Color Urine Dark Yellow; Epithelial Cell Urine Auto >30 /lpf (0-5); Glucose Urine UA Negative (Negative); Ketones Urine Negative (Negative); Leukocyte Esterase Urine Negative (Negative); Nitrite Urine Negative (Negative); Protein Urine 1+ (Negative); Specific Gravity Urine 1.025 (1.000-1.030); Urobilinogen Urine Negative (Negative)
[2018-09-16 13:02] LABS: Amorphous Sediment Urine Present (None Prsent)
[2018-09-16 13:04] LABS: Bacteria Urine Automated Negative (Negative)
[2018-09-16] MEDS: ALBUT/IPRATROP 3MG/0.5MG NEB 3 ML VIAL NEB SCH ×2 (15:32→19:06)
[2018-09-16] MEDS: LEVOFLOXACIN/D5W 750 MG/150 ML BAG IV SCH (20:33)
[2018-09-16] MEDS: ACETAMINOPHEN 65 ML IV PRN (20:33)
[2018-09-16] MEDS: METOPROLOL SUCC 25MG EXT REL TAB PO SCH (20:34)
[2018-09-17] MEDS: PIPERACILLIN/TAZOBACTAM 4.5 GM in DEXTROSE 5% 100 ML IV SCH (04:01)
[2018-09-17] MEDS: LEVOTHYROXINE SODIUM 75 MCG TABLET PO SCH (06:37)
[2018-09-17 07:06] LABS: Hematocrit (blood only) 26.4 % (37-47); Hemoglobin 8.8 g/dL (12.0-16.0); Mean Corpuscular Hgb Conc 33.3 g/dL (32-36); Mean Platelet Volume 10.4 fL (7.4-10.4); Platelet Count 217 K/uL (130-400); RDW Coefficient of Variation 13.8 % (11.5-14.5); RDW Standard Deviation 47.5 fL (36.4-46.3); Red Blood Count 2.84 M/uL (4.2-5.4); White Blood Count 13.13 K/uL (4.8-10.8)
[2018-09-17] MEDS: ALBUT/IPRATROP 3MG/0.5MG NEB 3 ML VIAL NEB SCH ×4 (07:10→19:34)
[2018-09-17 07:39] LABS: Basophils # (auto) 0.01 K/uL (0-0.2); Basophils % (auto) 0.1 %; Dohle Bodies 1+; Echinocytes 1+; Eosinophils # (auto) 0.15 K/uL (0-0.5); Eosinophils % (auto) 1.1 %; Giant Platelets 1+; Immature Granulocytes # (auto) 0.15 K/uL (0.00-0.02); Immature Granulocytes % (auto) 1.1 %; Lymphocytes # (auto) 1.22 K/uL (1.2-3.4); Lymphocytes % (auto) 9.3 %; Monocytes # (auto) 0.99 K/uL (0.11-0.59); Monocytes % (auto) 7.5 %; Neutrophils # (auto) 10.61 K/uL (1.4-6.5); Neutrophils % (auto) 80.9 %; Toxic Granulation 1+
[2018-09-17 07:45] LABS: BUN Creatinine Ratio 23.9 (10-20); Calcium 8.5 mg/dl (8.5-10.1); Creatinine Clr Calc Pharmacy 20.5 ml/min; Est GFR (Non-African American) 16.4; Potassium 4.6 mmol/L (3.5-5.1)
--- NOTE | 2018-09-17 07:49 | Surgery Progress Note ---
Date of Service September 17, 2018 Assessment & Plan (1) Pancreatitis: 83 yo female with gallstone pancreatitis. Repeat CT scan on 09/14/18 showed worsening pancreatitis. Will eventually need a cholecystectomy, but will need to wait for inflammation from significant pancreatitis to improve. Surgical timing to be determined. While ideally surgery is performed during the same hospitalization, given the severity of the pancreatitis may need to wait a prolonged period prior to intervening surgically, especially since no signs of acute cholecystitis. - Continue conservative management with hydration, aggressive pulmonary hygiene/incentive spirometry use. - continue full liquids - incentive spirometry 10x/hour - continue Bhatt for I/O, monitor creatinine. - Given rise in BUN/Creatinine (2.62 today 2.2 yesterday) , leukocytosis stable at 13K, febrile with tmax of 38.8 may need to consider repeat CT scan to assess severity of pancreatitis and to ensure no development of necrosis or pseudocyst. Clinically patient is having no abdominal pain but she was having minimal abdominal pain when she recently had repeat CT scan on 09/14/18 which showed worsening interstitial inflammation of the pancreas. - will follow along Dr. Morales has seen and examined pt, agrees with above Subjective feeling okay, just woke up upon entering room. no abdominal pain, no nausea or vomiting provides little ROS Physical Exam Constitutional: WD/WN, vitals as above + ill appearing and + morbidly obese; no acute distress Respiratory: no respiratory distress, no labored breathing, no retractions and does not use accessory muscles Gastrointestinal (Abdomen): Inspection/Auscultation: + abdomen distended Percussion/Palpation: + abdomen tender (epigastric on deep palpation) and abdomen soft; no guarding and abdomen not rigid Musculoskeletal: pitting edema of lower extremities and upper extremities, mildly improving venous insufficency ulcer of the left lower extremity with erythema Skin: no rashes, warm and dry Psychiatric: A+Ox3, euthymic affect Results & Data Vital Signs (Past 12 Hours) Vital Signs Temp Pulse Pulse Resp BP Pulse Ox 09/17/18 07:45 36.9 C 92 H 18 122/59 L 95 09/17/18 07:10 84 18 97 09/17/18 04:00 37.2 C 88 19 120/63 97 09/17/18 02:05 101 H 09/16/18 23:15 36.8 C 104 H 22 102/49 L 97 09/16/18 22:00 36.8 C (1) Pancreatitis Acute pancreatitis complication: unspecified Chronicity: acute Pancreatitis type: other Qualified Code(s): K85.80 - Other acute pancreatitis without necrosis or infection
[2018-09-17] MEDS: GEMFIBROZIL 600 MG TAB PO SCH (08:08)
[2018-09-17] MEDS: OMEGA-3 (PURIFIED FISH OIL) 1 GM CAP PO SCH (08:08)
[2018-09-17] MEDS: OLMESARTAN MEDOXOMIL 40 MG TAB PO SCH (08:08)
[2018-09-17] MEDS: CHOLECALCIFEROL 1,000 UNITS TAB PO SCH (08:08)
[2018-09-17] MEDS: INSULIN HUMAN 70% NPH/30% REGULAR SQ SCH ×2 (08:09→17:32)
[2018-09-17] MEDS: HEPARIN SOD 5,000 UNIT/0.5 ML VIAL SQ SCH ×2 (08:09→20:34)
[2018-09-17] MEDS: ASPIRIN 81 MG ECTAB PO SCH (08:09)
--- NOTE | 2018-09-17 09:05 | Nephrology Progress Note ---
Date of Service September 17, 2018 Assessment & Plan (1) Acute kidney injury: LISA related to inflammation and intravascular volume contraction associated w/ pancreatitis. AK resolved and renal function now back to baseline. She is volume overloaded however remain non-oliguric. Slight worsening renal function today however electrolyte remain acceptable. Although clinically looks volume overloaded, UO low after bumex and BUN/cr rising, ? intravascular volume depletion. --start on NS at 100 ml/h --persistent Fever, leukocytosis on Zosyn, levaquin, may need repeat Abdominal CT for worsening pancreatitis --monitor renal function and UO closely Will follow (2) Chronic kidney disease, stage IV (severe): -- Baseline creatinine ~ 1.7 - 2.0 (3) Pancreatitis: (4) Cholelithiasis: -- Surgery following, no plan to OR at this time (5) Hypertension: -- Hold ARB therapy (6) Diabetes mellitus: (7) Cellulitis of left lower extremity: -- IV Zosyn as per primary service Subjective Dana was seen and examined this morning. She seems more tired and lethargic today compared to yesterday however denies any symptoms, no SOB, CP. Denies abdominal pain. Had fever last night temp >38, now better. Renal function worsening. Remain positive after Bumex yesterday, CXR with no significant congestion. Physical Exam Constitutional: WD/WN, vitals as above + ill appearing and + obese Respiratory: normal respiratory effort, lungs clear to auscultation Cardiovascular: Rate/Rhythm: regular rate and regular rhythm Heart Sounds: normal S1 and normal S2 Extremities: + edema Neurologic: moves all extremities and awake Psychiatric: A+Ox3, euthymic affect Results & Data Vital Signs (Past 12 Hours) Vital Signs Temp Pulse Pulse Resp BP Pulse Ox 09/17/18 07:45 36.9 C 92 H 18 122/59 L 95 09/17/18 07:10 84 18 97 09/17/18 04:00 37.2 C 88 19 120/63 97 09/17/18 02:05 101 H 09/16/18 23:15 36.8 C 104 H 22 102/49 L 97 09/16/18 22:00 36.8 C (1) Pancreatitis Acute pancreatitis complication: unspecified Chronicity: acute Pancreatitis type: other Qualified Code(s): K85.80 - Other acute pancreatitis without necrosis or infection
--- NOTE | 2018-09-17 11:22 | Family Medicine Progress Note ---
Date of Service September 17, 2018 Assessment & Plan (1) Pancreatitis: 83-year-old female was admitted on 10 September 2018 for nausea, abdominal pain, and distention. H/o Hypertension, hypertriglyceridemia, diabetes, neuropathy, hypothyroidism: Prior partial thyroidectomy, breast cancer s/p mastectomy in 2000. Morbid obesity (BMI 40). 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 Acute pancreatitis, cholelithiasis - Repeat CT yesterday showed progressive pancreatitis - Treating supportively, but continuing to hold fluids in the setting of pleural effusion, hypoxia - Surgery and GI following - Follow fever curve - Continue pain management - Continue empiric Zosyn, ppx GI source + LE cellulitis coverage Febrile illness Considering pancreatitis as source, in addition to other potential causes; pneumonia, UTI, bacteremia Clinically appears stable Obtained blood cultures, chest x-ray, UA, MRSA nares Switching IV antibiotics, Zosyn to Levaquin MRSA negative Atrial fibrillation, new - Converted with one dose of IV Lopressor - Reviewed ECHO - Follow on telemetry, initiate PO metoprolol 25 mg daily - CHADVASC 9.8%. On ppx anticoagulation, no indication for bridge, will address adding Vitk antagonist vs NOAC at discharge. Pulmonary edema, hypoxia - Hypoxia, tachypnea improving today - 07Jun pCXR with possible trace pleural effusions. - 08Jun TTE with EF 60-65%, normal LVSF (see full report). Concern for aggressive hydration for pancreatitis. Acute on chronic CKD stage IV - Baseline Cr around 1.7. Oliguria has improved. See nephrology notes. Holding ARB and torsemide. Off of IVF. Acute on chronic anemia - Recent comparisons in Hb 10's. Monitoring. Hypertension, hypertriglyceridemia - continue ASA, holding olmesartan, and gemfibrozil now that off NPO. Diabetes, neuropathy - At home, on insulin and gabapentin 200 mg p.o. nightly - Hold gabapentin due to renal issues. On insulin here Hypothyroidism - Prior partial thyroidectomy. On levothyroxine PO Breast cancer s/p mastectomy in 2000 - Morbid obesity (BMI 40). 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 Code status: DNR. Diet: Clear liquid diet. DVT prophy: Heparin twice daily. PT/OT: Deferred. Dispo: Admitted to PCU telemetry. (2) Cellulitis of left lower extremity: (3) Cholelithiasis: (4) Abdominal pain: (5) Nausea & vomiting: (6) Hypothyroidism (acquired): (7) Diabetes mellitus: (8) Chronic anemia: Supervising Physician Co-Signing Physician Notes I personally examined the patient and verified all brooks points of history and exam, discussed case, and agree with decision making with Dr Rebolledo. Feeling about the same. Eating okay without much of any pain nausea, not much bloating. Had a decent sized bowel movement earlier today. Feels fatigued, has a little bit of a cough, no shortness of breath. Vitals noted, in general she is awake and alert pleasant no distress but very fatigued. HEENT normocephalic atraumatic mucous membranes may be slightly dry. Cardio is regular no rubs murmurs gallops. Lungs are clear to auscultation bilaterally fairly difficult exam may be a faint hint of a wheeze on the left no other rales rhonchi or wheezes no accessory muscle use good effort. Abdomen is soft mildly distended nontender no masses organomegaly, no guarding rebound or rigidity. Pancreatitislikely stone related, no indications for an acutely retained stone. Clinically she appears to be improving slowly with this. Advance diet. She is moving her bowels. Feversappears to been initially pancreatitis and now healthcare associated pn eumonia. Healthcare associated pneumoniacontinue Levaquin, this appears to be stabilizing, MRSA nares was negative, follow closely. Azotemianow appears to be dryagree with IV fluids as ordered by nephrology. Cholelithiasisstone most likely culprit for pancreatitis, timing of cholecystectomy depending on her recovery from the pancreatitis and pneumonia. New onset atrial fibrillationshe will warrant anticoagulation, but does not require bridging, given that she will likely need surgery we will hold off for now. Rate control has been easy to obtain, continue to follow DVT prophylaxisheparin subcu Otherwise as above Subjective Patient is doing well this morning. States that her breathing is improved overnight. She denies any abdominal pain right now. She is tolerating a regular diet. She does complain of left lower extremity pain. Review of Systems Review of Systems: All systems reviewed & are unremarkable except as noted in HPI & below Physical Exam Constitutional: WD/WN, vitals as above Eyes: PERRL, conjunctivae normal, anicteric sclerae ENMT: external ear and nose normal, oropharynx normal Neck: trachea midline, no thyromegaly Respiratory: normal respiratory effort, lungs clear to auscultation Cardiovascular: RRR, no murmur, no edema Gastrointestinal (Abdomen): normal bowel sounds, soft, nontender, no hepatosplenomegaly Musculoskeletal: no cyanosis or clubbing, extremities motor strength 5/5 Skin: Bilateral lower extremity edema, erythema of the distal one third left lower extremities, stable Psychiatric: A+Ox3, euthymic affect Results & Data Vital Signs (Past 12 Hours) Vital Signs Temp Pulse Pulse Resp BP Pulse Ox 09/17/18 10:37 86 18 95 09/17/18 07:45 36.9 C 92 H 18 122/59 L 95 09/17/18 07:10 84 18 97 09/17/18 04:00 37.2 C 88 19 120/63 97 09/17/18 02:05 101 H Resident Activity Tracking Resident Involvement: Resident Care Provided Care Provided: Adult Hospital Medicine (1) Pancreatitis Acute pancreatitis complication: unspecified Chronicity: acute Pancreatitis type: other Qualified Code(s): K85.80 - Other acute pancreatitis without necrosis or infection (2) Nausea & vomiting Vomiting Intractability: unspecified Vomiting type: unspecified Qualified Code(s): R11.2 - Nausea with vomiting, unspecified (3) Abdominal pain Abdominal location: unspecified location Qualified Code(s): R10.9 - Unspecified abdominal pain
[2018-09-17] MEDS: SODIUM CHLORIDE 0.9% 1000ML 1,000 ML IV SCH (13:48)
[2018-09-17] MEDS ORDERED: SODIUM CHLORIDE 0.9% 500 ML IV SCH (15:15)
[2018-09-17] MEDS: ACETAMINOPHEN 65 ML IV PRN (19:08)
[2018-09-17] MEDS: INSULIN ASPART 100 UNITS/ML 3 ML PEN SC SCH (20:34)
[2018-09-17] MEDS: INSULIN GLARGINE SOLOSTAR 100 UNITS/ML 3 ML PEN SQ SCH (20:35)
[2018-09-17] MEDS: METOPROLOL SUCC 25MG EXT REL TAB PO SCH (20:35)
[2018-09-18] MEDS: SODIUM CHLORIDE 0.9% 1000ML 1,000 ML IV SCH ×3 (01:59→23:48)
[2018-09-18] MEDS: LEVOTHYROXINE SODIUM 75 MCG TABLET PO SCH (05:28)
--- NOTE | 2018-09-18 07:16 | Surgery Progress Note ---
Date of Service September 18, 2018 Subjective Postoperative day #6 status post Gilma procedure Doing well Ambulated better yesterday Tolerated soft diet Colostomy is functioning Denies nausea Results & Data Vital Signs (Past 12 Hours) Vital Signs Temp Pulse Resp BP Pulse Ox 09/18/18 04:45 37.4 C 89 19 131/74 96 09/17/18 23:30 36.8 C 108 H 19 142/66 H 96 09/17/18 19:35 71 20 93 09/17/18 19:28 37.1 C 103 H 24 144/62 H 94
[2018-09-18] MEDS: ALBUT/IPRATROP 3MG/0.5MG NEB 3 ML VIAL NEB SCH ×4 (07:22→20:09)
[2018-09-18 07:51] LABS: Hematocrit (blood only) 28.2 % (37-47); Hemoglobin 9.4 g/dL (12.0-16.0); Mean Corpuscular Hgb Conc 33.3 g/dL (32-36); Mean Corpuscular Volume 92.5 fL (80-100); Mean Platelet Volume 10.9 fL (7.4-10.4); Platelet Count 259 K/uL (130-400); RDW Coefficient of Variation 13.8 % (11.5-14.5); RDW Standard Deviation 46.6 fL (36.4-46.3); Red Blood Count 3.05 M/uL (4.2-5.4); White Blood Count 15.22 K/uL (4.8-10.8)
[2018-09-18] MEDS: INSULIN GLARGINE SOLOSTAR 100 UNITS/ML 3 ML PEN SQ SCH ×2 (07:55→21:41)
[2018-09-18] MEDS: HEPARIN SOD 5,000 UNIT/0.5 ML VIAL SQ SCH ×2 (07:55→23:47)
[2018-09-18] MEDS: ASPIRIN 81 MG ECTAB PO SCH (07:55)
[2018-09-18] MEDS: OLMESARTAN MEDOXOMIL 40 MG TAB PO SCH (07:55)
[2018-09-18] MEDS: OMEGA-3 (PURIFIED FISH OIL) 1 GM CAP PO SCH (07:55)
[2018-09-18] MEDS: GEMFIBROZIL 600 MG TAB PO SCH (07:55)
[2018-09-18] MEDS: INSULIN ASPART 100 UNITS/ML 3 ML PEN SC SCH ×4 (07:57→21:42)
--- NOTE | 2018-09-18 08:19 | Family Medicine Progress Note ---
Date of Service September 18, 2018 Assessment & Plan (1) Pancreatitis: 83-year-old female was admitted on 10 September 2018 for nausea, abdominal pain, and distention. H/o Hypertension, hypertriglyceridemia, diabetes, neuropathy, hypothyroidism: Prior partial thyroidectomy, breast cancer s/p mastectomy in 2000. Morbid obesity (BMI 40). 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 Acute pancreatitis, cholelithiasis - Repeat CT on 09/14/2018 showed persistent pancreatitis, the patient is improving clinically Tolerating advancement to low-fat diet - Treating supportivelyIV fluids were initiated, 100 cc an hour - Surgery and GI following - Follow fever curve, continues to have isolated evening fevers - Continue pain management - Continue empiric Zosyn, ppx GI source + LE cellulitis coverage Febrile illness Considering pancreatitis as source, in addition to persistent left lower extremity cellulitis Clinically appears stable Blood cultures no growth, chest x-ray stable no infiltrates, UA negative Continue IV Levaquin MRSA swab negative Atrial fibrillation, new - Converted with one dose of IV Lopressor - Follow on telemetry, initiate PO metoprolol 25 mg daily - CHADVASC 9.8%. On ppx anticoagulation, no indication for bridge, will address adding Vitk antagonist vs NOAC at discharge. Pulmonary edema, hypoxia - Hypoxia, tachypnea improving today - 07Jun pCXR with possible trace pleural effusions. - 08Jun TTE with EF 60-65%, normal LVSF (see full report). Concern for aggressive hydration for pancreatitis. Acute on chronic CKD stage IV - Baseline Cr around 1.7. Creatinine continues to trend up, electrolytes within normal limits. Continue fluids, continue to monitor. Acute on chronic anemia - Recent comparisons in Hb 10's. Monitoring. Hypertension, hypertriglyceridemia - continue ASA, holding olmesartan, and gemfibrozil now that off NPO. Diabetes, neuropathy - At home, on insulin and gabapentin 200 mg p.o. nightly - Hold gabapentin due to renal issues. On insulin here Hypothyroidism - Prior partial thyroidectomy. On levothyroxine PO Breast cancer s/p mastectomy in 2000 - Morbid obesity (BMI 40). 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 Code status: DNR. Diet: Low-fat diet, IV fluids 100 cc/h DVT prophy: Heparin twice daily. PT/OT: Deferred. Dispo: Admitted to PCU telemetry. (2) Cellulitis of left lower extremity: (3) Cholelithiasis: (4) Abdominal pain: (5) Nausea & vomiting: (6) Hypothyroidism (acquired): (7) Diabetes mellitus: (8) Chronic anemia: Supervising Physician Co-Signing Physician Notes I personally examined the patient and verified all brooks points of history and exam, discussed case, and agree with decision making with Dr Rebolledo. breathing ok cough improving. no fevers today. a little chilled. overall feeling better. no belly pain no trouble after eating. Vitals noted, in general she is awake and alert pleasant no distress but very fatigued. HEENT normocephalic atraumatic mucous membranes may be slightly dry. Cardio is regular no rubs murmurs gallops. Lungs are clear to auscultation bilaterally fairly difficult exam but diminished L lower lung. Abdomen is soft mildly distended nontender no masses organomegaly, no guarding rebound or rigidity. Pancreatitislikely stone related, no indications for an acutely retained stone. Tolerating low fat diet. timing for cholecystectomy per surgery. Feversappears to been initially pancreatitis and now healthcare associated pneumonia. pattern is slow resolution - nothing new appearing to have occurred, but continue to follow closely. Healthcare associated pneumoniacontinue Levaquin, see above in regards to fever. Azotemianow appears to be dryagree with continuing IV fluids as ordered by nephrology. Cholelithiasisstone most likely culprit for pancreatitis, timing of cholecystectomy depending on her recovery from the pancreatitis and pneumonia. see above New onset atrial fibrillationshe will warrant anticoagulation, but does not require bridging, given that she will likely need surgery we will hold off for now. Rate control has been easy. DVT prophylaxisheparin subcu Otherwise as above Subjective Patient states that she had a good night. She is now tolerating a regular diet this morning. She denies any abdominal pain following breakfast. Her breathing has been stable. She denies feeling any fevers last night. Review of Systems Review of Systems: All systems reviewed & are unremarkable except as noted in HPI & below Physical Exam Constitutional: WD/WN, vitals as above well developed, well nourished and + obese Eyes: PERRL, conjunctivae normal, anicteric sclerae ENMT: external ear and nose normal, oropharynx normal Neck: trachea midline, no thyromegaly Respiratory: normal respiratory effort, lungs clear to auscultation Cardiovascular: RRR, no murmur, no edema Gastrointestinal (Abdomen): normal bowel sounds, soft, nontender, no hepatosplenomegaly Inspection/Auscultation: abdomen normal to inspection and normal bowel sounds; abdomen not distended Percussion/Palpation: abdomen nontender, no guarding and abdomen not rigid Musculoskeletal: no cyanosis or clubbing, extremities motor strength 5/5 Skin: erythema of the distal left LE, stable Neurologic: PERRL, EOMI, accommodation nl, no face palsy, no dysarthria Psychiatric: A+Ox3, euthymic affect Results & Data Vital Signs (Past 12 Hours) Vital Signs Temp Pulse Resp BP Pulse Ox 09/18/18 07:41 36.6 C 96 H 20 126/69 96 09/18/18 07:23 91 H 18 96 09/18/18 04:45 37.4 C 89 19 131/74 96 09/17/18 23:30 36.8 C 108 H 19 142/66 H 96 Resident Activity Tracking Resident Involvement: Resident Care Provided Care Provided: Adult Hospital Medicine (1) Pancreatitis Acute pancreatitis complication: unspecified Chronicity: acute Pancreatitis type: other Qualified Code(s): K85.80 - Other acute pancreatitis without necrosis or infection (2) Nausea & vomiting Vomiting Intractability: unspecified Vomiting type: unspecified Qualified Code(s): R11.2 - Nausea with vomiting, unspecified (3) Abdominal pain Abdominal location: unspecified location Qualified Code(s): R10.9 - Unspecified abdominal pain
[2018-09-18 08:20] LABS: Albumin Level 1.3 gm/dl (3.4-5.0); BUN Creatinine Ratio 27.4 (10-20); Calcium 8.7 mg/dl (8.5-10.1); Creatinine Clr Calc Pharmacy 20.1 ml/min; Est GFR (African American) 18.5; Est GFR (Non-African American) 15.9; Potassium 4.4 mmol/L (3.5-5.1)
[2018-09-18 08:24] LABS: Ferritin 297.9 ng/ml (8-388); Phosphorus 4.5 mg/dl (2.5-4.9)
--- NOTE | 2018-09-18 09:45 | Nephrology Progress Note ---
Date of Service September 18, 2018 Assessment & Plan (1) Acute kidney injury: LISA related to inflammation and intravascular volume contraction associated w/ pancreatitis. AK resolved and renal function now back to baseline. She is volume overloaded however remain non-oliguric. Slight worsening renal function today however electrolyte remain acceptable. Although clinically looks volume overloaded, remain positive and BUN/cr rising, ? intravascular volume depletion. --continue on NS at 100 ml/h --start on Boost, encourage protein intake --worsening , leukocytosis on Zosyn, levaquin, may need repeat Abdominal CT for worsening pancreatitis --monitor renal function and UO closely Will follow (2) Chronic kidney disease, stage IV (severe): -- Baseline creatinine ~ 1.7 - 2.0 (3) Pancreatitis: (4) Cholelithiasis: -- Surgery following, no plan to OR at this time (5) Hypertension: -- Hold ARB therapy (6) Diabetes mellitus: (7) Cellulitis of left lower extremity: -- IV Zosyn as per primary service Suyapa Cortez was seen and examined in her room this morning. She just had no breakfast, denies any abdominal discomfort and nausea. Overall continues to be lethargic and weak. Denies shortness of breath or chest pain. Blood pressure stable. Urine output decent. Renal function continues to worsen, electrolyte remain acceptable. Physical Exam Constitutional: WD/WN, vitals as above + ill appearing and + obese Respiratory: normal respiratory effort, lungs clear to auscultation normal respiratory effort soft crackles at bases. Cardiovascular: Rate/Rhythm: regular rate and regular rhythm Heart Sounds: normal S1 and normal S2 Extremities: + edema Neurologic: moves all extremities and awake Psychiatric: A+Ox3, euthymic affect Results & Data Vital Signs (Past 12 Hours) Vital Signs Temp Pulse Pulse Resp BP Pulse Ox 09/18/18 08:00 90 09/18/18 07:41 36.6 C 96 H 20 126/69 96 09/18/18 07:23 91 H 18 96 09/18/18 04:45 37.4 C 89 19 131/74 96 09/17/18 23:30 36.8 C 108 H 19 142/66 H 96 (1) Pancreatitis Acute pancreatitis complication: unspecified Chronicity: acute Pancreatitis type: other Qualified Code(s): K85.80 - Other acute pancreatitis without necrosis or infection
--- NOTE | 2018-09-18 11:03 | Progress Note ---
Date of Service September 18, 2018 Assessment & Plan (1) Pancreatitis: 83 yo female with gallstone pancreatitis. Repeat CT scan on 09/14/18 showed worsening pancreatitis. Will eventually need a cholecystectomy, but will need to wait for inflammation from significant pancreatitis to improve. Surgical timing to be determined. While ideally surgery is performed during the same hospitalization, given the severity of the pancreatitis may need to wait a prolonged period prior to intervening surgically, especially since no signs of acute cholecystitis. Highly likely that she will end up needing recovery period and return for elective cholecystectomy - Continue conservative management with hydration, aggressive pulmonary hygiene/incentive spirometry use. - Advance diet as tolerating - incentive spirometry 10x/hour - Defer Renee management to hospitalist and nephrology, okay to remove renee from surgical standpoint - NEEDS TO WORK ON STRENGTH/PT, HAS NOT BEEN OUT OF BED, IF UNABLE TO BE OOB MUST BE IN SEATED POSITION IN CHAIR AND WORK ON MOVING EXTREMITIES THROUGHOUT THE DAY - Discussed this with nursing staff as well - Would not give abx for pancreatitis alone in setting of temp ~38-38.2. If continues to spike temp > 38.2 or WBC continues to increase would consider re- scanning 5-7 days after previous scan (though would be sooner if she has a drastic decline in clinical status) Acute pancreatitis complication: unspecified Chronicity: acute Pancreatitis type: other Qualified Code(s): K85.80 - Other acute pancreatitis without necrosis or infection Subjective No significant changes in the pt's condition. She denies abdominal pain. States she ate peaches and [place] toast. Has not been out of bed or even sat up. Physical Exam Respiratory: mild dyspnea/increased effort with breathing Gastrointestinal (Abdomen): distended, epigastric firmness, non-tender Results & Data Vital Signs (Past 12 Hours) Vital Signs Temp Pulse Pulse Resp BP Pulse Ox 09/18/18 10:54 36.8 C 84 18 144/69 H 96 09/18/18 08:00 90 09/18/18 07:41 36.6 C 96 H 20 126/69 96 09/18/18 07:23 91 H 18 96 09/18/18 04:45 37.4 C 89 19 131/74 96 09/17/18 23:30 36.8 C 108 H 19 142/66 H 96
[2018-09-18] MEDS: LEVOFLOXACIN/D5W 750 MG/150 ML BAG IV SCH (21:43)
[2018-09-18] MEDS: METOPROLOL SUCC 25MG EXT REL TAB PO SCH (23:47)
[2018-09-19] MEDS: LEVOTHYROXINE SODIUM 75 MCG TABLET PO SCH (06:49)
[2018-09-19] MEDS: ALBUT/IPRATROP 3MG/0.5MG NEB 3 ML VIAL NEB SCH ×4 (07:36→19:11)
[2018-09-19 08:10] LABS: Hematocrit (blood only) 27.3 % (37-47); Hemoglobin 9.1 g/dL (12.0-16.0); Mean Corpuscular Hgb Conc 33.3 g/dL (32-36); Mean Corpuscular Volume 93.2 fL (80-100); Mean Platelet Volume 10.7 fL (7.4-10.4); Platelet Count 291 K/uL (130-400); RDW Coefficient of Variation 13.9 % (11.5-14.5); RDW Standard Deviation 47.8 fL (36.4-46.3); Red Blood Count 2.93 M/uL (4.2-5.4); White Blood Count 20.18 K/uL (4.8-10.8)
[2018-09-19 08:36] LABS: Albumin Level 1.3 gm/dl (3.4-5.0); BUN Creatinine Ratio 30.3 (10-20); Calcium 8.8 mg/dl (8.5-10.1); Creatinine Clr Calc Pharmacy 21.9 ml/min; Est GFR (African American) 20.1; Est GFR (Non-African American) 17.3; Potassium 4.3 mmol/L (3.5-5.1)
[2018-09-19] MEDS: INSULIN ASPART 100 UNITS/ML 3 ML PEN SC SCH ×4 (08:43→21:21)
[2018-09-19] MEDS: INSULIN GLARGINE SOLOSTAR 100 UNITS/ML 3 ML PEN SQ SCH ×2 (08:44→21:18)
[2018-09-19] MEDS: HEPARIN SOD 5,000 UNIT/0.5 ML VIAL SQ SCH ×2 (08:44→21:16)
[2018-09-19] MEDS: GEMFIBROZIL 600 MG TAB PO SCH (08:45)
[2018-09-19] MEDS: CHOLECALCIFEROL 1,000 UNITS TAB PO SCH (08:46)
[2018-09-19] MEDS: OLMESARTAN MEDOXOMIL 40 MG TAB PO SCH (08:46)
[2018-09-19] MEDS: ASPIRIN 81 MG ECTAB PO SCH (08:46)
[2018-09-19] MEDS: OMEGA-3 (PURIFIED FISH OIL) 1 GM CAP PO SCH (08:47)
--- NOTE | 2018-09-19 09:33 | Nephrology Progress Note ---
Date of Service September 19, 2018 Assessment & Plan (1) Acute kidney injury: LISA related to inflammation and intravascular volume contraction associated w/ pancreatitis. Patient has profound hypoalbuminemia and 3rd spacing of volume. Creatinine is trending down and patient is nonoliguric -- Heplock IV -- Will provide 25 g SPA IV -- Monitor volume status, UO and PRP -- BP is acceptable. Will stop ARB therapy (2) Chronic kidney disease, stage IV (severe): -- Baseline creatinine ~ 1.7 - 2.0 (3) Pancreatitis: (4) Cholelithiasis: -- Surgery following, plan cholecystectomy once acute inflammation from pancreatitis has resolved (5) Hypertension: -- Will stop ARB therapy (6) Diabetes mellitus: (7) Cellulitis of left lower extremity: -- IV Levaquin as per primary service Subjective Mrs. Mike was seen & examined in her hospital room this morning. She tolerated her breakfast but complains of back discomfort this morning. Review of Systems Constitutional: no fever Respiratory: no dyspnea Cardiovascular: no chest pain Gastrointestinal: no abdominal pain Physical Exam Constitutional: + ill appearing Eyes: PERRL, conjunctivae normal, anicteric sclerae Neck: trachea midline, no thyromegaly Respiratory: normal respiratory effort, lungs clear to auscultation no respiratory distress Cardiovascular: RRR, no murmur, no edema Gastrointestinal (Abdomen): Inspection/Auscultation: + abdomen distended and + hypoactive bowel sounds Percussion/Palpation: + abdomen tender; no guarding Skin: + erythema (LLE) tense edema of the arms and legs Results & Data Vital Signs (Past 12 Hours) Vital Signs Temp Pulse Pulse Resp BP Pulse Ox 09/19/18 07:14 36.6 C 82 20 145/66 H 96 09/19/18 07:00 83 09/19/18 04:36 36.2 C L 89 18 147/74 H 98 09/18/18 23:35 37.3 C 115 H 18 152/65 H 94 Laboratory Results Laboratory Tests 09/19/18 09/19/18 07:41 07:41 WBC 20.18 H Hgb 9.1 L Hct 27.3 L Plt Count 291 Sodium 137 Potassium 4.3 Chloride 107 Carbon Dioxide 20 L BUN 76 H Creatinine 2.50 H Glucose 191 H (1) Pancreatitis Acute pancreatitis complication: unspecified Chronicity: acute Pancreatitis type: other Qualified Code(s): K85.80 - Other acute pancreatitis without necrosis or infection
--- NOTE | 2018-09-19 10:14 | Surgery Progress Note ---
Date of Service September 19, 2018 Assessment & Plan (1) Pancreatitis: 83 yo female with gallstone pancreatitis. Repeat CT scan on 09/14/18 showed worsening pancreatitis. Will eventually need a cholecystectomy, but will need to wait for inflammation from significant pancreatitis to improve. Surgical timing to be determined. While ideally surgery is performed during the same hospitalization, given the severity of the pancreatitis may need to wait a prolonged period prior to intervening surgically, especially since no signs of acute cholecystitis. Highly likely that she will end up needing recovery period and return for elective cholecystectomy Concern for hospital acquired pneumonia -+productive cough - increase in leukocytosis to 20K today (15K yesterday) - now on IV Levaquin - Continue conservative management - aggressive pulmonary hygiene/incentive spirometry use. Continue IV Levaquin - Advance diet as tolerating, BOOST supplementation TID given low albumin - incentive spirometry 10x/hour - Defer Renee management to hospitalist and nephrology, okay to remove renee from surgical standpoint - NEEDS TO WORK ON STRENGTH/PT, HAS NOT BEEN OUT OF BED, IF UNABLE TO BE OOB MUST BE IN SEATED POSITION IN CHAIR AND WORK ON MOVING EXTREMITIES THROUGHOUT THE DAY - Would not give abx for pancreatitis alone in setting of temp ~38-38.2. If continues to spike temp > 38.2, WBC continues to increase, or patient becomes more distended with decreased oral intake (concern for possible pseudocyst development with compression on stomach) would consider re-scanning 5-7 days after previous scan (though would be sooner if she has a drastic decline in clinical status) . If re-scanning would recommend CT of CHEST/ABD/PELVIS to evaluate lungs as well. - Dr. Baumann with [facility] covering this weekend Dr. Ureña has seen and examined pt, agrees with above. Supervising Physician Co-Signing Physician Notes I have seen and evaluated the patient and reviewed the medical record. I agree with the documentation as provided in this note by Renetta Snell PA-C. Subjective states she got out of bed and sat in chair yesterday," felt a better with sitting up for a little while" feeling slightly full , no nausea or vomiting no abdominal pain still having pain in legs , especially left lower leg + coughing, trying to use incentive spirometry more frequently Physical Exam Constitutional: WD/WN, vitals as above + ill appearing and + morbidly obese; no acute distress Respiratory: + cough; no respiratory distress, no labored breathing, no retractions and does not use accessory muscles Cardiovascular: Extremities: + calf tenderness, + pedal edema (+ 2 pitting edema of bilateral feet and lower extremities) and + edema Gastrointestinal (Abdomen): Inspection/Auscultation: abdomen normal to inspection; abdomen not distended Percussion/Palpation: abdomen soft; abdomen nontender, no guarding and abdomen not rigid Skin: no rashes, warm and dry + skin tightening (lowe extremities due to edema) Psychiatric: Orientation: alert and oriented x 3 Affect: + flat affect Results & Data Vital Signs (Past 12 Hours) Vital Signs Temp Pulse Pulse Resp BP Pulse Ox 09/19/18 07:14 36.6 C 82 20 145/66 H 96 09/19/18 07:00 83 09/19/18 04:36 36.2 C L 89 18 147/74 H 98 09/18/18 23:35 37.3 C 115 H 18 152/65 H 94 (1) Pancreatitis Acute pancreatitis complication: unspecified Chronicity: acute Pancreatitis type: other Qualified Code(s): K85.80 - Other acute pancreatitis without necrosis or infection
[2018-09-19] MEDS: ALBUMIN 25% 50 ML IV SCH ×2 (10:24→11:14)
--- NOTE | 2018-09-19 12:09 | CT Scan Report ---
CT chest wo con CT DOSE: 777.96 mGy.cm CLINICAL HISTORY: 83 years-old Female with worsened wheezing. increased WBC. on O2. r/o PNA. Acute s hortness of breath with wheezing and leukocytosis TECHNIQUE: Multiaxial CT images of the chest were performed without contrast. A dose lowering techni que was utilized adhering to the principles of ALARA. COMPARISON: CT abdomen and pelvis 09/14/2018, chest CT 08/01/2006 FINDINGS: Heterogeneously enlarged thyroid. 10 mm subcarinal lymph node has slightly increased in size from [facility] chest CT. 9 mm precarinal lymph node with prominent paratracheal, AP window and hilar lymph n odes. Moderate cardiomegaly with coronary arterial calcifications. No thoracic aortic aneurysm. Small bilateral pleural effusions appear unchanged from recent CT abdomen and pelvis. Bibasilar groun dglass and consolidative opacities. Mild bilateral intralobular septal thickening with pulmonary vasc ular congestion. No pneumothorax. Decreased AP dimension of the trachea and main bronchi. Findings of acute pancreatitis redemonstrated which appears similar to comparison with free fluid not ed about the lesser sac. Prominent upper abdominal lymph nodes. Mild generalized body wall edema. Isabel or right mastectomy. Degenerative changes of the shoulders and spine. IMPRESSION: 1. Cardiomegaly with suggestion of mild pulmonary edema. 2. Small bilateral pleural effusions with bibasilar groundglass and consolidative opacities suggestiv e of atelectasis or pneumonia. Correlate clinically. 3. Decreased AP dimension of the trachea and mainstem bronchi. Correlate clinically to exclude trache obronchomalacia. 4. Nonspecific mildly prominent mediastinal and hilar lymph nodes, possibly reactive. 5. Findings of acute pancreatitis redemonstrated. Electronically signed by: Roland Starr M.D. 09/19/2018 12:08 PM
[2018-09-19] MEDS: DICLOFENAC SOD 1% GEL 100 GM TUBE EXT SCH ×3 (12:33→21:21)
[2018-09-19] MEDS: LACTOBACILLUS ACIDOPHILUS (FLORANEX) TAB PO SCH ×3 (12:33→21:16)
[2018-09-19] MEDS ORDERED: VANCOMYCIN CONSULT ACTIVE PRN (13:40)
[2018-09-19] MEDS ORDERED: VANCOMYCIN HCL 1,000 MG in SODIUM CHLORIDE 0.9% 250 ML IV SCH (13:45)
[2018-09-19] MEDS: IMIPENEM/CILASTATIN SODIUM 200 MG in DEXTROSE 5% 100 ML IV SCH ×2 (14:17→21:15)
--- NOTE | 2018-09-19 14:23 | Pharmacy Report ---
Pharmacy Abx Initial Consult - Date of Service September 19, 2018 - Pharmacy Dosing Scope Date of Consult: 09/19/18 Consultation requested by: Dr. Devlin Pharmacy is consulted to initiate Vancomycin + Imipenem IV dosing therapy, order appropriate labs and adjust drug dose/frequency. - Subjective The patient is a 83 year old F admitted on 09/10/18 18:36. - Objective Height: 5 ft 4 in Weight: 118.1 kg Vital Signs (Past 12hrs): Vital Signs Temp Pulse Pulse Resp BP Pulse Ox 09/19/18 11:14 37.3 C 103 H 21 158/64 H 96 09/19/18 07:36 86 16 96 09/19/18 07:14 36.6 C 82 20 145/66 H 96 09/19/18 07:00 83 09/19/18 04:36 36.2 C L 89 18 147/74 H 98 Lab Results (24hrs): Laboratory Tests (24 Hours) 09/19/18 09/19/18 07:41 07:41 WBC 20.18 H Creatinine 2.50 H Est Cr Clr Drug Dosing 21.9 Micro Results: 09/16/18 12:04 Anaerobic Blood Culture - Final Blood 09/16/18 12:13 Anaerobic Blood Culture - Final Blood 09/14/18 Unknown Urine Culture - Final Urine,Indwelling Cath No growth - less than 1,000 colonies/mL. - Risk Factors for Resistance * Current hospitalization > 5 days * Antimicrobial use within the last 90 days - Assessment & Plan Assessment 83 year old F initiated on IV Vancomycin + Imipenem for PNA (HAP) BMI >35kg/m2 putting her at risk for rapid vancomycin accumulation once steady state is reached Pt with baseline CKD (Scr ~1.7-2 mg/dl) but now with LISA. Will dose vanco per random levels since pt specific PK likely does not follow population estimates. Plan Vancomycin IV * Estimated PK Parameters: Vd 0.55 L/kg, Bunny 0.017 hr-1, t1/2 40.77hr * Loading dose: 2,500 mg (21 mg/kg) * Will re-dose with ~15mg/kg IV vanco when random level is in goal trough range. * Goal trough level for pulmonary : 15 to 20 mcg/mL * Random level ordered for 09/20/18 w/ AM labs * A less than traditional dose and/or extended dosing interval has/have been selected due to likelihood of drug accumulation in obese patient/patient with h/o CKD. Imipenem * Target dose for HAP = 500 MG IV Q6 HOURS * CrCl 15 to 29 mL/minute: adjust to 200 mg IV every 6 hours Pharmacy will continue to follow and will adjust dose/frequency as necessary. Thank you.
[2018-09-19] MEDS ORDERED: VANCOMYCIN HCL 2,500 MG in SODIUM CHLORIDE 0.9% 500 ML IV ONE (15:00)
[2018-09-19] MEDS: MoRPHine SULFATE 4 MG/ML 1 ML CARP\\VIAL IV PRN (15:42)
--- NOTE | 2018-09-19 16:38 | Family Medicine Progress Note ---
Date of Service September 19, 2018 Assessment & Plan (1) Pancreatitis: 83-year-old female was admitted on 10 September 2018 for nausea, abdominal pain, and distention. H/o Hypertension, hypertriglyceridemia, diabetes, neuropathy, hypothyroidism: Prior partial thyroidectomy, breast cancer s/p mastectomy in 2000. Morbid obesity (BMI 40). 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 Acute pancreatitis likely 2/2 cholelithiasis Initial worsening of abdo pain symptoms even after admission, but repeat CT on 09/14 showed persistent pancreatitis without cyst or necrosis. Empiric abx (initially Zosyn) started. The patient is improving clinically, tolerating advancement to low-fat diet. Surgery and GI following, plan cholecystectomy once acute inflammation from pancreatitis has resolved. Ongoing sx improvement - Treating supportively mIVF NSS @ 100cc/h - Continue pain management PRN Bilateral pneumonia Initially febrile illness attributed to course of pancreatitis. Has known persistent left lower extremity cellulitis. As fevers continued, abx switched to Levaquin on 09/16. MRSA nares confirmed to be negative. Blood cultures no growth, chest x-ray stable no infiltrates, UA negative. However, need to broaden abx coverage with WBC trending up (though now afebrile), and CT confirmation of lung changes on 09/19. - Started vancomycin and imipenem/cilastatin - Continue supplemental O2 to maintain sats >92% and duonebs QIDr - Trace UCx report ordered given indwelling Bhatt Pulmonary edema, hypoxia Hypoxia, tachypnea improved but present 09/12 pCXR with possible trace pleural effusions; 09/13 TTE with EF 60-65%, normal LVSF (see full report) - concern for aggressive hydration for pancreatitis Attempted diuresis revealed patient remain intravascularly depleted - Continue judicious IVF for now - Mx of PNA as above - Encourage incentive spirometry Atrial fibrillation, new Converted with one dose of IV Lopressor - Continue PO metoprolol 25 mg daily - CHADVASC 9.8%. On ppx anticoagulation, no indication for bridge, will address adding Vitk antagonist vs NOAC at discharge. Acute on chronic CKD stage IV Baseline Cr ~1.7-2.0. Some improvement in creatinine down to 2.5 today, electrolytes within normal limits. Nephrology consulted, recs appreciated - Continue fluids, trend BMP Bilateral knee pain - chronic Severe and prevents patient from wanting to be moved in bed, let alone engaging in PT/OT - Ordered voltaren gel to be applied bilaterally QID - Advise nursing to use IV morphine 20-30min prior to moving and therapy Diabetes, neuropathy - At home, on insulin and gabapentin 200 mg p.o. nightly - Hold gabapentin due to renal issues - Insulin tightened to Lantus 35BID and tighter ISS scale given patient now eating better Acute on chronic anemia - Recent comparisons in Hb 10's. - Continue monitoring Hypertension, hypertriglyceridemia - Continue ASA and gemfibrozil. Hold olmesartan for kidney fxn Hypothyroidism Prior partial thyroidectomy. - Continue levothyroxine Breast cancer s/p mastectomy in 2000 Diet: Low-fat diet, IV fluids 100 cc/h DVT prophy: Heparin twice daily. PT/OT: Ordered. Dispo: Admitted to PCU telemetry. Code status: DNR. (2) Cellulitis of left lower extremity: Continue intravenous Zosyn therapy started in the ED. (3) Cholelithiasis: (4) Abdominal pain: (5) Nausea & vomiting: (6) Hypothyroidism (acquired): (7) Diabetes mellitus: Basal insulin dosage will be decreased by 50%. Sliding scale coverage (8) Chronic anemia: Supervising Physician Co-Signing Physician Notes I personally examined the patient and verified all brooks points of history and exam, discussed case, and agree with decision making with Dr Devlin. visited multiple times,sleeping comfortably each time. discussed w R3 extensively and d/w nursing as well. main new issue is rising WBC. Vitals noted, breathing comfortably at rest nad. no accessory muscle use/breathing unlabored. skin shows no rashes no pallor or icterus. Pancreatitislikely stone related, no indications for an acutely retained stone. Tolerating low fat diet. timing for cholecystectomy per surgery - agree she should be more recovered given no urgency for surgery. continue to follow - especially in the face fo the rising white count, but this clinically seems to have stabilized and is resolving. Fevers/leukocytosisappears to been initially pancreatitis and now healthcare associated pneumonia. with rising WBC now, concern on ?MDR pneumonia/MRSA pneumonia w false negative MRSA swab, vs other secondary infection (fevers have now resolved so unlikley bacteremia, no Cdiff sx, cellulitis appears stable, check urine culture) --> broaden abx to vanco (2% false negative rate for MRSA nares w pneunonia, she would fit the context of who could be false negative) and primaxin (covering gram negatives that would have possibly failed zosyn and levaquin. considered gentamicin but risks w CKD seem higher than shifting to a different, albeit still fundamentally beta-lactam, broad spectrum antibiotic) Healthcare associated pneumoniasee above Azotemiadelicate, somewhat difficult, fluid balance. continue cautiously following. Cholelithiasisstone most likely culprit for pancreatitis, timing of cholecystectomy depending on her recovery from the pancreatitis and pneumonia. see above New onset atrial fibrillationshe will warrant anticoagulation, but does not require bridging, given that she will likely need surgery we will hold off for now. Rate control has been easy. DVT prophylaxisheparin subcu for now. will want to progress to full anticoagulation related to afib - no urgency given mid-range CHADS-Vasc Otherwise as above Subjective Patient lying in bed, no she states she feeling better, she appears to be breathing relatively rapidly from person sitting at rest. She denies issues with sleep but states she is fatigued. She ate most of her breakfast but now is feeling over full. However she denies abdominal pain like she was having a few days previously. She denies nausea or vomiting. She has a Bhatt attached for urine and denies issues with bowel movements. She does not feel any chest pain or palpitations, but does note she is still requiring oxygen which she does not use at home. She denies headaches or vision changes. She denies any numbness or tingling. She admits that she only uses her incentive spirometry 2 or 3 times daily. She is most frustrated about the significant pain she feels in her legs, most particularly in her knees when she is moved by a nursing. She is desperately requesting something for pain relief. Review of Systems Review of Systems: All systems reviewed & are unremarkable except as noted in HPI & below Physical Exam Constitutional: well developed, well nourished, + acute distress (Some respiratory distress) and + morbidly obese Fatigued appearing Eyes: no eyelid abnormality and no conjunctival abnormality ENMT: external ear and nose normal, oropharynx normal (Nasal cannula in situ) Neck: normal visual inspection Respiratory: + labored breathing, able to speak in complete sentences, + tachypneic and symmetric chest movement; no grunting and no nasal flaring Auscultation: + diminished lung sounds (Especially at the bases bilaterally) and + wheezes (Diffuse expiratory wheezing); breath sounds present Cardiovascular: Rate/Rhythm: regular rate and regular rhythm Vessels: normal peripheral pulses Extremities: + edema Gastrointestinal (Abdomen): Inspection/Auscultation: abdomen normal to inspection and normal bowel sounds Percussion/Palpation: + abdomen firm; abdomen nontender, no guarding and abdomen not rigid Musculoskeletal: Head/Neck/Chest: normocephalic, head atraumatic and neck supple Extremities: extremities normal to inspection (Grossly) Skin: + rash (Cellulitis of left lower leg) Neurologic: awake; no focal motor deficits Psychiatric: A+Ox3, euthymic affect Results & Data Vital Signs (Past 12 Hours) Vital Signs Temp Pulse Pulse Resp BP Pulse Ox 09/19/18 15:24 80 20 96 09/19/18 11:14 37.3 C 103 H 21 158/64 H 96 09/19/18 07:36 86 16 96 09/19/18 07:14 36.6 C 82 20 145/66 H 96 09/19/18 07:00 83 09/19/18 04:36 36.2 C L 89 18 147/74 H 98 Laboratory Results Abnormal lab results 09/18/18 09/19/18 09/19/18 Range/Units 20:17 07:16 07:41 WBC (4.8-10.8) K/uL RBC (4.2-5.4) M/uL Hgb (12.0-16.0) g/dL Hct (37-47) % RDW Std Deviation (36.4-46.3) fL MPV (7.4-10.4) fL Carbon Dioxide 20 L (21-32) mmol/L BUN 76 H (7-18) mg/dl Creatinine 2.50 H (0.6-1.2) mg/dl BUN/Creatinine Ratio 30.3 H (10-20) Glucose 191 H (70-99) mg/dl POC Glucose 298 H 191 H (70-99) Albumin 1.3 L (3.4-5.0) gm/dl 09/19/18 09/19/18 Range/Units 07:41 11:12 WBC 20.18 H (4.8-10.8) K/uL RBC 2.93 L (4.2-5.4) M/uL Hgb 9.1 L (12.0-16.0) g/dL Hct 27.3 L (37-47) % RDW Std Deviation 47.8 H (36.4-46.3) fL MPV 10.7 H (7.4-10.4) fL Carbon Dioxide (21-32) mmol/L BUN (7-18) mg/dl Creatinine (0.6-1.2) mg/dl BUN/Creatinine Ratio (10-20) Glucose (70-99) mg/dl POC Glucose 295 H (70-99) Albumin (3.4-5.0) gm/dl PG Care Time/CCT Total # of Minutes Spent Total Time Spent with Patient: Total time spent is greater than 50% in coordination of care (as documented) at patient's floor/unit and/or counseling patient: Resident Activity Tracking Resident Involvement: Resident Care Provided Care Provided: Adult Hospital Medicine (1) Pancreatitis Acute pancreatitis complication: unspecified Chronicity: acute Pancreatitis type: other Qualified Code(s): K85.80 - Other acute pancreatitis without nec rosis or infection (2) Nausea & vomiting Vomiting Intractability: unspecified Vomiting type: unspecified Qualified Code(s): R11.2 - Nausea with vomiting, unspecified (3) Abdominal pain Abdominal location: unspecified location Qualified Code(s): R10.9 - Unspecified abdominal pain
[2018-09-19] MEDS: METOPROLOL SUCC 25MG EXT REL TAB PO SCH (21:17)
[2018-09-19] MEDS: ACETAMINOPHEN 65 ML IV PRN (23:48)
[2018-09-20] MEDS: IMIPENEM/CILASTATIN SODIUM 200 MG in DEXTROSE 5% 100 ML IV SCH ×4 (01:48→20:54)
[2018-09-20] MEDS: LEVOTHYROXINE SODIUM 75 MCG TABLET PO SCH (05:54)
--- NOTE | 2018-09-20 07:11 | Family Medicine Progress Note ---
Date of Service September 20, 2018 Assessment & Plan (1) Pancreatitis: 83-year-old female was admitted on 10 September 2018 for nausea, abdominal pain, and distention. Found to have acute pancreatitis. Pt was started on Zosyn which was narrowed to a cephalosporin on 09/13/18 and then added Levoquin o n 09/16/18 which was broadened to Vanc + Imipenem on 09/19/18 WBC elevation, fevers. Blood cultures repeated on 09/10/18 and ID consulted on that day as well for persistent fevers. PMHx: HTN, HLD (TAG ~200), DM2, neuropathy, hypothyroidism: Prior partial thyroidectomy, breast cancer s/p mastectomy in 2000. Morbid obesity (BMI 40). 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 Acute pancreatitis likely 2/2 cholelithiasis Initial worsening of abdo pain symptoms even after admission, but repeat CT on 09/14 showed persistent pancreatitis without cyst or necrosis. Empiric abx (i nitially Zosyn) started and narrowed to Cephalosporin on 09/13/18 and then re- broadened on 09/19/18. Repeat CT Scan on 09/20/18 showed no acute changes however GB consistently inflamed. Surgery and GI following, plan cholecystectomy once acute inflammation from pancreatitis has resolved. c/w IVF NSS @80cc/h - pt is 3rd spacing. Follow up repeat blood cultures. Cholecystectomy once pancreatitis resolved. Consider HIDA scan. Possible pneumonia on CT Scan, 09/19/[address] results with Dr. Cotter, likely atelectasis and not pneumonia. Abx as above. Pulmonary edema, hypoxia Hypoxia, tachypnea improved but present 09/12 pCXR with possible trace pleural effusions; 09/13 TTE with EF 60-65%, normal LVSF (see full report) - concern for aggressive hydration for pancreatitis Pt is up 17kg since admission likely all 3rd spaced given oliguria. Encourage ambulation and incentive spirometry. Atrial fibrillation, new Converted with one dose of IV Lopressor Continue PO metoprolol 25 mg daily CHADVASC 9.8%. On dvt proph anticoagulation, no indication for bridge, will address adding Vitk antagonist vs NOAC at discharge. Acute on chronic CKD stage IV Baseline Cr ~1.7-2.0. Creatinine 2.7 today, low urine output, c/w IVF as above, appreciate nephro recs. Bilateral knee pain - chronic Severe and prevents patients from wanting to be moved in bed, let alone engaging in PT/OT Ordered voltaren gel to be applied bilaterally QID Advised nursing to use IV morphine 20-30min prior to moving and therapy Diabetes, neuropathy At home, on insulin and gabapentin 200 mg p.o. nightly Hold gabapentin due to renal issues Insulin tightened to Lantus 35BID and tighter ISS scale given patient now eating better Acute on chronic anemia Recent comparisons in Hb 10's. Continue monitoring HTN, hypertriglyceridemia Continue ASA and gemfibrozil. Hold olmesartan for kidney fxn Hypothyroidism Prior partial thyroidectomy. Continue levothyroxine Breast cancer s/p mastectomy in 2000 Diet: Low-fat diet, IVF as above. DVT prophy: Heparin twice daily. PT/OT: Ordered. Dispo: Admitted to PCU telemetry. Code status: DNR. (2) Cellulitis of left lower extremity: Continue intravenous Zosyn therapy started in the ED. (3) Cholelithiasis: (4) Abdominal pain: (5) Nausea & vomiting: (6) Hypothyroidism (acquired): (7) Diabetes mellitus: (8) Chronic anemia: Supervising Physician Co-Signing Physician Notes I personally examined the patient and verified all brooks points of history and exam, discussed case, and agree with decision making with Dr Laws. The knee and hip pain, which she notes she has at home but is worse now and she attributes to less movement, she has no new complaints. Her breathing is good without any cough or shortness of breath, her belly does not hurt, she is eating well without pain postprandially and has no nausea. She did have a fever again. Vitals noted, breathing comfortably at rest nad. HEENT normocephalic atraumatic mucous membranes moist. Breathing shows no rales rhonchi or wheezes with good effort, somewhat difficult exam but no adventitious sounds. Abdomen is soft nondistended nontender no masses or organomegaly. Extremities show no cyanosis or clubbing she has diffuse edema, and extremely stable appearing inflammatory changes of her left lower extremity distal to the knee, no exudate/open lesions. Neuro shows cranial nerves II through XII are grossly intact gross motor and sensory intact. Pancreatitislikely stone related, no indications for an acutely retained stone. Tolerating low fat diet. CT abdomen pelvis does show significant pancreatitis and her fevers and elevated white count may all relate to this, given the clinical uncertainty continue empiric antibiotic coverage (see below otherwise) Fevers/leukocytosislikely multifactorial, between the pancreatitis itself, her possible pneumonia (healthcare associated), and possible elements of gallbladder inflammation. Follow LFTs, continue antibiotics, follow cultures. Repeat CT done today because of this, showing ongoing very significant inflammatory changes in the pancreas, although nothing that appears to warrant intervention beyond what we are already doing. Gallbladder does appear distended, we will follow-up LFTs, but clinically she does not show pain or other biliary symptoms to suggest an urgency for cholecystitis Healthcare associated pneumoniasee above, breathing is stable Azotemiashe is showing a delicate fluid balance. Continue cautiously following, nephrology input appreciated. Cholelithiasisstone most likely culprit for pancreatitis, timing of cholecystectomy depending on her recovery from the pancreatitis and pneumonia. see above otherwise New onset atrial fibrillationshe will warrant anticoagulation, but does not require bridging, given uncertainty and surgical timing, we will continue to hold off on fully anticoagulating her, in case something needs to be done more urgently. Rate control is been easy to obtain DVT prophylaxisheparin subcu for now. will want to progress to full anticoagulation related to afib - no urgency given mid-range CHADS-Vasc Otherwise as above Subjective Pt seen and examined at bedside. Spiked a fever overnight, pt is complaining of back and leg pain. Pt has incentive spirometer at bedside. Unclear if she is using it. Pt hasn't been MOG mobile while in hospital. Hospital Day #10 at the moment. Pt states that her breathing has improved. Telemetry showed sinus PACs and a HR of 60-70s overnight. CT Scan reviewed with Dr. Cotter over the phone and it's unlikely ARDS. Pt's admission weight was 105kg and is 122kg today. ROS: No chest pain, no SOB, no palpitations, no fevers, no chills, no nausea, no vomiting, no diarrhea, no dysuria, + LLE edema. Physical Exam Constitutional: WD/WN, vitals as above + morbidly obese Eyes: PERRL, conjunctivae normal, anicteric sclerae no conjunctival abnormality ENMT: external ear and nose normal, oropharynx normal (Nasal cannula in situ) Neck: trachea midline, no thyromegaly normal visual inspection Respiratory: normal respiratory effort, able to speak in complete sentences and symmetric chest movement; no respiratory distress, no retractions, does not use accessory muscles and no nasal flaring Auscultation: + diminished lung sounds (Especially at the bases bilaterally) and + wheezes (Diffuse expiratory wheezing) Cardiovascular: RRR, no murmur, no edema Vessels: normal peripheral pulses Extremities: + pedal edema (+ 2 pitting edema of bilateral feet and lower extremities) Gastrointestinal (Abdomen): Percussion/Palpation: abdomen soft; abdomen nontender, no guarding and abdomen not rigid Musculoskeletal: no cyanosis or clubbing, extremities motor strength 5/5 Head/Neck/Chest: head atraumatic Extremities: extremities normal to inspection (Grossly); no cyanosis Skin: no rashes, warm and dry + rash (Cellulitis of left lower leg) Neurologic: PERRL, EOMI, accommodation nl, no face palsy, no dysarthria moves all extremities and awake; no focal motor deficits Psychiatric: A+Ox3, euthymic affect Results & Data Vital Signs (Past 12 Hours) Vital Signs Temp Pulse Resp BP Pulse Ox 09/20/18 03:21 37.2 C 98 H 18 92/52 L 93 09/19/18 23:20 39.2 C H 104 H 18 139/66 96 09/19/18 19:37 36.8 C 115 H 20 151/66 H 96 09/19/18 19:13 112 H 19 98 PG Care Time/CCT Total # of Minutes Spent Total Time Spent with Patient: Total time spent is greater than 50% in coordination of care (as documented) at patient's floor/unit and/or counseling patient: Resident Activity Tracking Resident Involvement: Resident Care Provided Care Provided: Adult Hospital Medicine (1) Pancreatitis Acute pancreatitis complication: unspecified Chronicity: acute Pancreatitis type: other Qualified Code(s): K85.80 - Other acute pancreatitis without necrosis or infection (2) Nausea & vomiting Vomiting Intractability: unspecified Vomiting type: unspecified Qualified Code(s): R11.2 - Nausea with vomiting, unspecified (3) Abdominal pain Abdominal location: unspecified location Qualified Code(s): R10.9 - Unspecified abdominal pain
[2018-09-20] MEDS: ALBUT/IPRATROP 3MG/0.5MG NEB 3 ML VIAL NEB SCH (07:14)
[2018-09-20 08:15] LABS: BUN Creatinine Ratio 29.9 (10-20); Calcium 8.7 mg/dl (8.5-10.1); Creatinine Clr Calc Pharmacy 20.2 ml/min; Est GFR (African American) 17.7; Est GFR (Non-African American) 15.3; Potassium 4.1 mmol/L (3.5-5.1)
[2018-09-20] MEDS ORDERED: IMIPENEM/CILASTATIN CONSULT ACTIVE PRN (08:29)
[2018-09-20 08:36] LABS: Basophils # (auto) 0.05 K/uL (0-0.2); Basophils % (auto) 0.2 %; Eosinophils # (auto) 0.57 K/uL (0-0.5); Eosinophils % (auto) 2.5 %; Hematocrit (blood only) 25.9 % (37-47); Hemoglobin 8.6 g/dL (12.0-16.0); Immature Granulocytes # (auto) 0.34 K/uL (0.00-0.02); Immature Granulocytes % (auto) 1.5 %; Lymphocytes # (auto) 1.12 K/uL (1.2-3.4); Mean Corpuscular Hgb Conc 33.2 g/dL (32-36); Mean Corpuscular Volume 91.8 fL (80-100); Mean Platelet Volume 10.5 fL (7.4-10.4); Monocytes # (auto) 0.89 K/uL (0.11-0.59); Monocytes % (auto) 3.9 %; Neutrophils # (auto) 19.64 K/uL (1.4-6.5); Neutrophils % (auto) 86.9 %; Platelet Count 308 K/uL (130-400); RDW Coefficient of Variation 13.8 % (11.5-14.5); RDW Standard Deviation 46.8 fL (36.4-46.3); Red Blood Count 2.82 M/uL (4.2-5.4); White Blood Count 22.61 K/uL (4.8-10.8)
--- NOTE | 2018-09-20 08:42 | Pharmacy Report ---
Pharmacy Abx Dose Short Note - Date of Service September 20, 2018 - Assessment & Plan Assessment 83 year old F receiving vancomycin/imipenem for treatment of possible pneumonia Day # 2 of antimicrobial therapy. Plan Vancomycin * Trough random level this morning came back therapeutic at 15.6 mcg/ml (goal 15-20 mcg/ml for pneumonia) * Received loading dose of vancomycin level last evening - will redose with vancomycin 1250 mg (~11 mg/kg) x 1 to maintain an estimated peak of ~30 mcg/ml. Estimated kinetics: t1/2>24 hrs - therefore anticipate patient to remain therapeutic >15 mcg/ml until tomorrow * Scr continues to trend upward today from 2.5 to 2.77 mg/dL today - therefore will continue to dose based upon levels * Will reorder another random level tomorrow am to assist with further dosing * Repeat blood cultures are no growth, urine culture pending - due to continued fevers/elevated WBC abx continued at this time. ID now consulted to follow the patient Imipenem * 200 mg iv q 6 hrs - appropriate for CrCl/no change (CrCl 15-29 ml/min) Pharmacy will continue to follow and will adjust dose/frequency as necessary. Thank you.
[2018-09-20] MEDS: INSULIN ASPART 100 UNITS/ML 3 ML PEN SC SCH ×4 (08:56→20:57)
[2018-09-20] MEDS: INSULIN GLARGINE SOLOSTAR 100 UNITS/ML 3 ML PEN SQ SCH ×2 (08:57→20:56)
[2018-09-20] MEDS: MoRPHine SULFATE 4 MG/ML 1 ML CARP\\VIAL IV PRN ×2 (09:11→13:11)
[2018-09-20] MEDS: LACTOBACILLUS ACIDOPHILUS (FLORANEX) TAB PO SCH ×4 (09:14→20:54)
[2018-09-20] MEDS: ASPIRIN 81 MG ECTAB PO SCH (09:15)
[2018-09-20] MEDS: OMEGA-3 (PURIFIED FISH OIL) 1 GM CAP PO SCH (09:16)
--- NOTE | 2018-09-20 09:28 | Nephrology Progress Note ---
Date of Service September 20, 2018 Assessment & Plan (1) Acute kidney injury: LISA related to inflammation and intravascular volume contraction associated w/ pancreatitis. Patient has profound hypoalbuminemia and 3rd spacing of volume. Creatinine is trending down and patient is nonoliguric -- Patient w/ 3rd spacing of volume due to pancreatic inflammation and low serum albumin. Recommend heplock IV. 25 g albumin IV x 1 given yesterday -- Monitor volume status, UO and PRP -- BP is acceptable. ARB therapy has been stopped (2) Chronic kidney disease, stage IV (severe): -- Baseline creatinine ~ 1.7 - 2.0 (3) Pancreatitis: (4) Cholelithiasis: -- Surgery following, plan cholecystectomy once acute inflammation from pancreatitis has resolved (5) Hypertension: -- Will stop ARB therapy (6) Diabetes mellitus: (7) Cellulitis of left lower extremity: -- IV Levaquin as per primary service Subjective Mrs. Mike was seen & examined in her hospital room this morning. She denies abdominal pain and is tolerating her diet. She does c/o hip discomfort. Review of Systems Constitutional: no fever Respiratory: no dyspnea Cardiovascular: no chest pain Gastrointestinal: no abdominal pain, no vomiting and no diarrhea/loose stools Physical Exam Constitutional: + ill appearing Eyes: PERRL, conjunctivae normal, anicteric sclerae Neck: trachea midline, no thyromegaly Respiratory: normal respiratory effort, lungs clear to auscultation no respiratory distress Cardiovascular: Rate/Rhythm: regular rate and regular rhythm 3+ pitting edema of the arms and legs Gastrointestinal (Abdomen): Inspection/Auscultation: + abdomen distended and + hypoactive bowel sounds Skin: + erythema (LLE) Results & Data Vital Signs (Past 12 Hours) Vital Signs Temp Pulse Resp BP Pulse Ox 09/20/18 07:14 71 16 98 09/20/18 07:08 36.9 C 100 H 18 113/57 L 92 09/20/18 03:21 37.2 C 98 H 18 92/52 L 93 09/19/18 23:20 39.2 C H 104 H 18 139/66 96 Laboratory Tests 09/19/18 09/20/18 07:41 07:37 WBC 20.18 H Hgb 9.1 L Hct 27.3 L Plt Count 291 Sodium 139 Potassium 4.1 Chloride 109 H Carbon Dioxide 19 L BUN 83 H Creatinine 2.77 H Glucose 82 (1) Pancreatitis Acute pancreatitis complication: unspecified Chronicity: acute Pancreatitis type: other Qualified Code(s): K85.80 - Other acute pancreatitis without necrosis or infection
[2018-09-20] MEDS ORDERED: ALBUT/IPRATROP 3MG/0.5MG NEB 3 ML VIAL NEB PRN (10:27)
[2018-09-20] MEDS: GEMFIBROZIL 600 MG TAB PO SCH (10:35)
[2018-09-20] MEDS: DICLOFENAC SOD 1% GEL 100 GM TUBE EXT SCH ×4 (11:41→20:57)
[2018-09-20] MEDS ORDERED: VANCOMYCIN HCL 1,250 MG in SODIUM CHLORIDE 0.9% 250 ML IV ONE (12:00)
--- NOTE | 2018-09-20 12:16 | Infectious Disease Consult ---
Date of Consultation September 20, 2018 Assessment & Plan (1) Pancreatitis: Patient with acute pancreatitis, cholecystitis, and probable left lower extremity cellulitis with persistent fevers and leukocytosis. Agree with need for follow-up CT scan to rule out developing pancreatic abscess or pseudocyst, although could be febrile from pancreatitis itself. Patient to be continued on present antibiotics pending further culture results. Will follow. (2) Cellulitis of left lower extremity: History of Present Illness Reason for Consultation: Persistent fevers, unclear source Attending Physician: Cam Cerna DO History of Present Illness 83-year-old female with history of stage IV chronic kidney disease, chronic v enous insufficiency, diabetes mellitus, hypertension, hypothyroidism, originally admitted September 10 with several days of worsening abdominal pain, found to have evidence of acute pancreatitis with significantly elevated lipase. Was treated with IV Zosyn, had improvement in abdominal symptoms, found to have evidence of cholecystitis and stone disease, and has been seen by surgery with plans for cholecystectomy in the future. Patient has had intermittent fevers as high as 39.2 with increase in white blood cell count to 21,000+. Cultures have been negative. Last CT scan showed evidence of somewhat worsening pancreatitis. Scheduled for repeat abdominal CT later today. States abdominal pain somewhat better. Complaining of pain in her left leg especially when moved. Has been changed to IV vancomycin and imipenem. Allergies Allergy/AdvReac Type Severity Reaction Status Date / Time Sulfa (Sulfonamide Allergy Unknown BLISTERS Verified 09/10/18 17:40 Antibiotics) Home Medications Home Medications Medication Instructions Recorded Confirmed Type Multi-Vitamin HP/Minerals 1 cap PO QAM 02/23/18 09/10/18 History cholecalciferol (vitamin D3) 2,000 unit PO 3XWK 02/23/18 09/10/18 History [Vitamin D3] gabapentin 200 mg PO HS 02/23/18 09/10/18 History gemfibrozil 600 mg PO QAM 02/23/18 09/10/18 History levothyroxine 75 mcg PO QAM 02/23/18 09/10/18 History olmesartan 40 mg PO QAM 02/23/18 09/10/18 History omega [id number] oil [Fish Oil] 1,000 mg PO QAM 02/23/18 09/10/18 History torsemide 10 mg PO QAM 02/23/18 09/10/18 History torsemide 20 mg PO QAM 02/23/18 09/10/18 History acetaminophen [Mapap 650 mg PO Q4H PRN #1 tab 02/26/18 09/10/18 Rx (acetaminophen)] aspirin [Aspirin Low Dose] 81 mg PO DAILY 09/10/18 09/10/18 History insulin NPH and regular human 60 unit SUBCUT BID 09/10/18 09/10/18 History [Novolin 70/30 U-100 Insulin] Patient History Medical History Cellulitis of left lower extremity (Acute) Pancreatitis (Acute) Acute kidney injury Neuropathy Chronic kidney disease, stage IV (severe) Acute UTI (Acute) Sepsis (Acute) Chronic venous insufficiency Diabetes mellitus (Chronic) Hypertension Hypothyroidism (acquired) Hypertriglyceridemia Cellulitis of right upper extremity Cellulitis of left lower extremity Social History Preferred Language: Romansh Communication Ability: Effective College Sports Assistant Required: No Beliefs That Will Affect Care: None marital status: Current Living Situation: Spouse Other Information That Helps Us Care for You: No Feels Safe at Home: Yes Safety Concerns: Feels Safe At This Time Smoking Status: Never smoker Do You Dip or Chew Tobacco: No Second Hand Exposure: No Tobacco Cessation Education Requested by Patient: No Hx Alcohol Use: No Hx Substance Use: No Review of Systems Review of Systems: All systems reviewed & are unremarkable except as noted in HPI & below Physical Exam Constitutional: WD/WN, vitals as above + morbidly obese and comfortable; no acute distress Eyes: PERRL, conjunctivae normal, anicteric sclerae ENMT: external ear and nose normal, oropharynx normal Neck: trachea midline, no thyromegaly neck nontender Respiratory: normal respiratory effort, lungs clear to auscultation normal percussion; does not use accessory muscles Cardiovascular: Rate/Rhythm: regular rate and regular rhythm Heart Sounds: normal S1 and normal S2; no gallop, no murmur and no cardiac rub Vessels: normal peripheral pulses; no JVD Gastrointestinal (Abdomen): normal bowel sounds, soft, nontender, no hepatosplenomegaly Inspection/Auscultation: + abdomen distended Percussion/Palpation: no abdominal mass Musculoskeletal: no cyanosis or clubbing, extremities motor strength 5/5 Spine: thoracic spine normal to inspection and lumbar spine normal to inspection; no cervical spinal tenderness Skin: normal turgor and + lesion Chronic venous stasis changes with erythema with tenderness and slight increased warmth left lower extremity. Mild erythema right anterior raymond. Neurologic: patellar DTR's 2+ bilat, sensation intact no focal motor deficits Psychiatric: A+Ox3, euthymic affect Orientation: cooperative Lymphatic: no cervical or axillary lymphadenopathy no inguinal lymphadenopathy Results & Data Vital Signs (Past 12 Hours) Vital Signs Temp Pulse Resp BP Pulse Ox 09/20/18 11:32 36.7 C 82 22 139/55 L 92 09/20/18 07:14 71 16 98 09/20/18 07:08 36.9 C 100 H 18 113/57 L 92 09/20/18 03:21 37.2 C 98 H 18 92/52 L 93 Laboratory Results Short CBC 09/20/18 Range/Units 08:23 WBC 22.61 H (4.8-10.8) K/uL Hgb 8.6 L (12.0-16.0) g/dL Hct 25.9 L (37-47) % Plt Count 308 (130-400) K/uL BMP 09/20/18 07:37 Sodium 139 Potassium 4.1 Chloride 109 H Carbon Dioxide 19 L BUN 83 H Creatinine 2.77 H Glucose 82 Calcium 8.7 Diagnostic Findings Microbiology 09/14/18 15:36 Blood Aerobic Blood Culture - Final No growth in Aerobic bottle after 5 days. 09/14/18 15:36 Blood Anaerobic Blood Culture - Final No growth in Anaerobic bottle after 5 days. 09/14/18 15:27 Blood Aerobic Blood Culture - Final No growth in Aerobic bottle after 5 days. 09/14/18 15:27 Blood Anaerobic Blood Culture - Final No growth in Anaerobic bottle after 5 days. 09/16/18 12:04 Blood Aerobic Blood Culture - Preliminary No growth in Aerobic bottle after 48 hours. 09/16/18 12:04 Blood Anaerobic Blood Culture - Final 09/16/18 12:13 Blood Aerobic Blood Culture - Preliminary No growth in Aerobic bottle after 48 hours. 09/16/18 12:13 Blood Anaerobic Blood Culture - Final 09/14/18 Unknown Urine,Indwelling Cath Urine Culture - Final No growth - less than 1,000 colonies/mL. Ordering Phy: Roland Sears MD cc: ~ ABDOMEN AND PELVIS CT WITHOUT CONTRAST CT DOSE: 1512.20 mGy.cm HISTORY: Acute tachycardia in a patient with acute pancreatitis f/u pancreatitis, new tachycardia - NON-CONTRAST TECHNIQUE: Multiaxial CT images of the abdomen and pelvis were performed without contrast. A dose lowering technique was utilized adhering to the principles of ALARA. COMPARISON STUDY: CT abdomen and pelvis 09/10/2018, MRCP 09/11/2018. FINDINGS: Small bilateral pleural effusions. Subsegmental right basilar consolidative and groundglass opacities are noted with bibasilar bronchial wall thickening and mild mucous plugging. There is no pneumatosis or pneumoperitoneum. Imaged inferior cardiac chambers are moderately enlarged. Trace pericardial effusion. Gallbladder distention without definite evidence of acute cholecystitis. Limited evaluation of the solid abdominal organs without the use of IV contrast. Within the limitations of the study, the liver, spleen and adrenal glands are unremarkable. Extensive interstitial and peripancreatic inflammation with trace free fluid about the anterior pararenal space extending into the central mesentery has progressed from prior. Additionally, there is small volume of abdominopelvic ascites, notably about the inferior pericolic gutters and dependent pelvis. No focal acute peripancreatic fluid collection. Nonspecific bilateral perinephric stranding. Cortical thinning with mildly trophic appearance of the bilateral kidneys. No hydronephrosis. Bhatt catheter noted within a decompressed or bladder lumen. Coarse calcification of the left mid uterus may reflect a calcified fibroid. No adnexal mass lesions. Extensive calcification of the abdominal aorta without aneurysm. No adenopathy. No bowel obstruction. Mild wall thickening of the duodenum is likely reactive. Mild to moderate formed stool about the distal sigmoid and rectum. No evidence of acute appendicitis. Mild generalized body wall edema. Tiny fat filled periumbilical hernia, diastases of 1.7 cm. Degenerative changes of the spine, pelvis and hips. Severe degenerative changes with chronic remodeling of the left femoral acetabular joint. Moderate to severe disuse atrophy about the left thigh and buttock musculature. IMPRESSION: 1. Progressively worsened extensive interstitial and peripancreatic inflammation compatible with worsening acute interstitial edematous pancreatitis. No acute peripancreatic fluid collection. There is however a small volume of abdominopelvic ascites with small bilateral pleural effusions and moderate generalized body wall edema which is new from prior. 2. Gallbladder distention without definite evidence of acute cholecystitis redemonstrated. 3. No bowel obstruction, pneumatosis or pneumoperitoneum. Electronically signed by: Roland Starr M.D. 09/14/2018 4:26 PM Dictated: 09/14/18 1617 Transcribed: 09/14/18 161 (1) Pancreatitis Acute pancreatitis complication: unspecified Chronicity: acute Pancreatitis type: other Qualified Code(s): K85.80 - Other acute pancreatitis without necrosis or infection
[2018-09-20] MEDS: HEPARIN SOD 5,000 UNIT/0.5 ML VIAL SQ SCH ×2 (13:00→20:55)
--- NOTE | 2018-09-20 14:02 | CT Scan Report ---
CT abd pelvis oral con only CLINICAL HISTORY: 83 years-old Female presenting with pancreatitis, no improvement, WBC elevated, day 10. TECHNIQUE: Multidetector CT of the abdomen and pelvis was performed after the administration of oral contrast only. IV contrast: None. One or more dose lowering techniques were used consistent with the principles of ALARA (as low as reasonably achievable), including automatic exposure control, mA or kV adjustment to individual patient size, and/or use of iterative reconstruction. COMPARISON: 09/14/2018 and 09/10/2018. CT DOSE (mGy.cm): The estimated cumulative dose is 1521.30 mGy.cm. 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 Lung bases: Borderline enlarged heart size. Coronary artery calcification. Small bilateral pleural ef fusions as on prior exam. Dependent consolidation volume loss in the lower lobes as on prior exam lik zia passive atelectasis. Liver: Normal morphology. Normal density. Biliary: No gross biliary ductal dilatation allowing for noncontrast technique. Gallbladder is disten ded. No radiodense gallstones. Pancreas: Enlargement of the pancreas with diffuse parenchymal and peripancreatic fat stranding and f luid. Fluid is again noted along the pancreatic tail tracking to the inferior pole of the spleen. Thi s measures up to 7 cm in diameter. This is stable to slightly enlarged from prior. This does not appe ar to be well encapsulated. Inflammatory change also tracks into the transverse mesocolon as on prior exam. Retroperitoneal extension of inflammatory change in the anterior pararenal spaces. Spleen: Normal noncontrast appearance. Perisplenic fluid as mentioned. Adrenal glands: Normal noncontrast appearance. Kidneys and ureters: Bilaterally atrophic kidneys with nonspecific moderate perinephric fat infiltrat ion. No nephrolithiasis or hydronephrosis. Ureters nondistended. Bladder: Decompressed with a Bhatt catheter. Pelvic organs: Normal noncontrast appearance. Bowel: Possible rectal descent with pelvic floor laxity. The colon is normal without evidence of wall thickening. Normal appendix. No bowel obstruction. Mild wall thickening of the duodenal bulb suggest ed with periduodenal fat infiltration as on prior exam. Oral contrast has transited to the distal sma ll bowel. No small bowel wall thickening is apparent. Peritoneal cavity: Small to moderate volume ascites in the paracolic gutters and pelvis, which is sli ghtly increased in volume from prior. No free intraperitoneal gas. Lymph nodes: No gross lymphadenopathy allowing for noncontrast technique. Vasculature: Atherosclerosis of the normal caliber abdominal aorta. Abdominal wall: Diffuse body wall edema, which has worsened from prior exam. Right mastectomy may be present. Musculoskeletal: Severe degenerative changes of the left hip as on prior exam. Degenerative changes o f the spine. IMPRESSION: 1. Overall similar appearance of the severe pancreatitis. Evaluation for necrosis is significantly l imited in the absence of intravenous contrast. No gross evidence of a pancreatic parenchymal fluid co llection to suggest necrosis at this time. Acute peripancreatic fluid collection along the tail track ing to the spleen stable to slightly increased in size from prior. Extension of inflammatory change i n the retroperitoneum also stable from prior. 2. Gallbladder distention likely a secondary result of inflammatory change and lack of bile clearanc e. If there is clinical concern for acute or chronic cholecystitis, HIDA scan may be beneficial. 3. Slight increased volume of the small to moderate ascites. 4. Worsened body wall edema. 5. Persistent small bilateral pleural effusions and passive atelectasis in the lower lobes. Electronically signed by: Gio Cotter M.D. 09/20/2018 2:01 PM
[2018-09-20 15:09] LABS: Alanine Aminotransferase 22 U/L (12-78); Albumin Level 1.4 gm/dl (3.4-5.0); Alkaline Phosphatase 107 U/L (45-117); Aspartate Aminotransferase 47 U/L (15-37); Bilirubin Direct < 0.1 mg/dl (0-0.2); Bilirubin,Total 0.3 mg/dl (0.2-1); Total Protein 5.2 gm/dl (6.4-8.2)
--- NOTE | 2018-09-20 15:16 | Surgery Progress Note ---
Date of Service September 20, 2018 Assessment & Plan (1) Pancreatitis: 09/20/2018 Gallstone pancreatitis WBC increased to 22.61 this AM. Patient tolerating low fat diet with Boost supplementation. Plan is for cholecystectomy with [facility] once pancreatitis has resolved. Repeat CT scan this AM shows 1. Overall similar appearance of the severe pancreatitis. Evaluation for necrosis is significantly limited in the absence of intravenous contrast. No gross evidence of a pancreatic parenchymal fluid collection to suggest necrosis at this time. Acute peripancreatic fluid collection along the tail tracking to the spleen stable to slightly increased in size from prior. Extension of inflammatory change in the retroperitoneum also stable from prior. 2. Gallbladder distention likely a secondary result of inflammatory change and lack of bile clearance. If pancreatitis continues to persist and/or becomes worse would consider transfer to tertiary facility. Dr. Morales will resume care Saturday morning. 09/19/2018 83 yo female with gallstone pancreatitis. Repeat CT scan on 09/14/18 showed worsening pancreatitis. Will eventually need a cholecystectomy, but will need to wait for inflammation from significant pancreatitis to improve. Surgical timing to be determined. While ideally surgery is performed during the same hospitalization, given the severity of the pancreatitis may need to wait a prolonged period prior to intervening surgically, especially since no signs of acute cholecystitis. Highly likely that she will end up needing recovery period and return for elective cholecystectomy Concern for hospital acquired pneumonia -+productive cough - increase in leukocytosis to 20K today (15K yesterday) - now on IV Levaquin - Continue conservative management - aggressive pulmonary hygiene/incentive spirometry use. Continue IV Levaquin - Advance diet as tolerating, BOOST supplementation TID given low albumin - incentive spirometry 10x/hour - Defer Renee management to hospitalist and nephrology, okay to remove renee from surgical standpoint - NEEDS TO WORK ON STRENGTH/PT, HAS NOT BEEN OUT OF BED, IF UNABLE TO BE OOB MUST BE IN SEATED POSITION IN CHAIR AND WORK ON MOVING EXTREMITIES THROUGHOUT THE DAY - Would not give abx for pancreatitis alone in setting of temp ~38-38.2. If continues to spike temp > 38.2, WBC continues to increase, or patient becomes more distended with decreased oral intake (concern for possible pseudocyst development with compression on stomach) would consider re-scanning 5-7 days after previous scan (though would be sooner if she has a drastic decline in clinical status) . If re-scanning would recommend CT of CHEST/ABD/PELVIS to evaluate lungs as well. - Dr[facility] Baumann with [facility] covering this weekend Dr. Ureña has seen and examined pt, agrees with above. Supervising Physician Co-Signing Physician Notes Patient seen and examined, labs and imaging reviewed, agree with above. 83-year-old female with gallstone pancreatitis and pneumonia. Overall she is doing well with no abdominal pain tolerating diet. Her white blood cell count continues to increase. Repeat CT scan today shows persistent pancreatitis, limited by lack of IV contrast, but no obvious necrosis, fluid collection at the tail the pancreas though no obvious sign of abscess. No acute surgical intervention indicated. There is any concern for pancreatic necrosis, worsening pancreatitis, acute cholecystitis, or development of pancreatic abscess, they would recommend transfer to a tertiary facility she would be treated nonoperatively with interventional radiology and supportive care. Surgery will continue to follow, call with questions or concerns. Subjective Patient resting comfortably in bed Denies abdominal pain Tolerating low fat diet with Boost supplementation. Physical Exam Gastrointestinal (Abdomen): Inspection/Auscultation: abdomen not distended Percussion/Palpation: abdomen soft; abdomen nontender, no guarding and abdomen not rigid Results & Data Vital Signs (Past 12 Hours) Vital Signs Temp Pulse Resp BP Pulse Ox 09/20/18 11:32 36.7 C 82 22 139/55 L 92 09/20/18 07:14 71 16 98 09/20/18 07:08 36.9 C 100 H 18 113/57 L 92 09/20/18 03:21 37.2 C 98 H 18 92/52 L 93 (1) Pancreatitis Acute pancreatitis complication: unspecified Chronicity: acute Pancreatitis type: other Qualified Code(s): K85.80 - Other acute pancreatitis without necrosis or infection
[2018-09-20] MEDS: SODIUM CHLORIDE 0.45 % 1,000 ML IV SCH (20:51)
[2018-09-20] MEDS: METOPROLOL SUCC 25MG EXT REL TAB PO SCH (20:57)
[2018-09-21] MEDS: IMIPENEM/CILASTATIN SODIUM 200 MG in DEXTROSE 5% 100 ML IV SCH ×4 (02:19→20:21)
[2018-09-21] MEDS: LEVOTHYROXINE SODIUM 75 MCG TABLET PO SCH (06:26)
--- NOTE | 2018-09-21 07:18 | Family Medicine Progress Note ---
Date of Service September 21, 2018 Assessment & Plan (1) Pancreatitis: 83F was admitted on 10 September 2018 for nausea, abdominal pain, and distention. Found to have acute pancreatitis. Pt was started on Zosyn which was narrowed to a cephalosporin on 09/13/18 and then added Levoquin on 09/16/18 which was broadened to Vanc + Imipenem on 09/19/18 WBC elevation, fevers. Blood cultures repeated on 09/10/18 and ID consulted on that day as well for persistent fevers. PMHx: HTN, HLD (TAG ~200), DM2, neuropathy, hypothyroidism: Prior partial thyroidectomy, breast cancer s/p mastectomy in 2000. Morbid obesity (BMI 40). 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 Acute pancreatitis likely 2/2 cholelithiasis Initial worsening of abdo pain symptoms even after admission, but repeat CT on 09/14 showed persistent pancreatitis without cyst or necrosis. Empiric abx (initially Zosyn) started and narrowed to Cephalosporin on 09/13/18 and then re- broadened on 09/19/18. Repeat CT Scan on 09/20/18 showed no acute changes however GB consistently inflamed. Surgery and GI following, plan cholecystectomy once acute inflammation from pancreatitis has resolved. c/w IVF NSS @80cc/h - pt is 3rd spacing. Repeat blood cultures negative. Slow and indolent recovery, Day #11 of admission. c/w Vanc + Imipenem for cholecystitis. Diffuse Edema Pt is up 17kg since admission likely all 3rd spaced given oliguria. Encourage ambulation and incentive spirometry. Will order compression stockings. Talked extensively to patient to encourage ambulation. Will add on Boost supplements. Acute on chronic CKD stage IV Baseline Cr ~1.7-2.0. Creatinine 3.06 today, low urine output, c/w IVF as above,. Nephrology will give Albumin. see recs. Atrial fibrillation, new Converted with one dose of IV Lopressor Continue PO metoprolol 25 mg daily CHADVASC 9.8%. On dvt proph anticoagulation, no indication for bridge, will address adding Vitk antagonist vs NOAC at discharge. Bilateral knee pain - chronic Severe and prevents patients from wanting to be moved in bed, let alone engaging in PT/OT Ordered voltaren gel to be applied bilaterally QID Advised nursing to use IV morphine 20-30min prior to moving and therapy Possible pneumonia on CT Scan, 09/19/[address] results with Dr. Cotter, likely atelectasis and not pneumonia. No concerns for ARDS. Pt is no respiratory distress. Abx as above. Diabetes, neuropathy At home, on insulin and gabapentin 200 mg p.o. nightly Hold gabapentin due to renal issues Insulin tightened to Lantus 35BID and tighter ISS scale given patient now eating better Acute on chronic anemia Recent comparisons in Hb 10's. Continue monitoring HTN, hypertriglyceridemia Continue ASA and gemfibrozil. Hold olmesartan for kidney fxn Hypothyroidism Prior partial thyroidectomy. Continue levothyroxine Breast cancer s/p mastectomy in 2000 Diet: Low-fat diet, IVF as above. DVT proph: Heparin twice daily. PT/OT: Ordered. Dispo: Admitted to PCU telemetry. Code status: DNR. (2) Cellulitis of left lower extremity: (3) Cholelithiasis: (4) Abdominal pain: (5) Nausea & vomiting: (6) Hypothyroidism (acquired): (7) Diabetes mellitus: (8) Chronic anemia: Supervising Physician Co-Signing Physician Notes I personally examined the patient and verified all brooks points of history and exam, discussed case, and agree with decision making with Dr Laws. no new complaints. weak and hasn't been out of bed. eating OK. Vitals noted, breathing comfortably at rest nad. HEENT normocephalic atraumatic mucous membranes moist. Breathing unlabored no accessory muscles good effort. Abdomen is soft nondistended nontender no masses or organomegaly. Extremities show no cyanosis or clubbing she has diffuse edema, and extremely stable appearing inflammatory changes of her left lower extremity distal to the knee, no exudate/open lesions. Neuro shows cranial nerves II through XII are grossly intact gross motor and sensory intact. Pancreatitislikely stone related, no indications for an acutely retained stone. Tolerating low fat diet. CT abdomen pelvis does show significant pancreatitis and her fevers and elevated white count may all relate to this, given the clinical uncertainty continue empiric antibiotic coverage (see below otherwise), appreciate surgical input. Fevers/leukocytosislikely multifactorial, between the pancreatitis itself, her possible pneumonia (healthcare associated), and possible elements of gallbladder inflammation. Follow LFTs, continue antibiotics, follow cultures. Repeat CT done 6/15 because of this, showing ongoing very significant inflammatory changes in the pancreas, although nothing that appears to warrant intervention beyond what we are already doing. 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 she noted swelling impeding movement - discussed that unfortunately it will mostly take nutrition and muscle contraction to mobilize the fluid causing swelling- can give attempt to compression, but unlikley to make massive impact. contniue to encourage. Azotemiashe is showing a delicate fluid balance. Continue cautiously following, nephrology input appreciated. albumin being attempted Cholelithiasisstone most likely culprit for pancreatitis, timing of cholecystectomy depending on her recovery from the pancreatitis and pneumonia. see above otherwise New onset atrial fibrillationshe will warrant anticoagulation, but does not require bridging, given uncertainty and surgical timing, we will continue to hold off on fully anticoagulating her, in case something needs to be done more urgently. Rate control is been easy to obtain DVT prophylaxisheparin subcu for now. will want to progress to full anticoagulation related to afib - no urgency given mid-range CHADS-Vasc Otherwise as above Subjective Pt was seen and examined at bedside. No acute overnight events. tele showed sinus PACs in the 80-90s. Pt denies any SOB or difficult breathing . Chronic back and joint pains persist. Tolerating PO. All questions answered. ROS: No chest pain, no SOB, no palpitations, no fevers, no chills, no nausea, no vomiting, no diarrhea, no dysuria, no rash. Physical Exam Constitutional: WD/WN, vitals as above + morbidly obese and + obese Eyes: PERRL, conjunctivae normal, anicteric sclerae EOM intact bilaterally; no conjunctival abnormality ENMT: external ear and nose normal, oropharynx normal (Nasal cannula in situ) Neck: trachea midline, no thyromegaly normal visual inspection Respiratory: normal respiratory effort, able to speak in complete sentences and symmetric chest movement; no respiratory distress, no retractions, does not use accessory muscles and no nasal flaring Auscultation: lungs clear to auscultation bilaterally and + diminished lung sounds (Especially at the bases bilaterally) Cardiovascular: RRR, no murmur, no edema Heart Sounds: normal S1 and normal S2 Vessels: normal peripheral pulses Extremities: + pedal edema (+ 3 pitting edema of bilateral feet and lower extremities) Gastrointestinal (Abdomen): Inspection/Auscultation: + abdomen distended and normal bowel sounds Percussion/Palpation: abdomen soft; abdomen nontender, no guarding and abdomen not rigid Musculoskeletal: no cyanosis or clubbing, extremities motor strength 5/5 Head/Neck/Chest: head atraumatic Extremities: extremities normal to inspection (Grossly) Skin: + rash (Cellulitis of left lower leg) Neurologic: PERRL, EOMI, accommodation nl, no face palsy, no dysarthria moves all extremities and awake; no focal motor deficits Psychiatric: A+Ox3, euthymic affect Results & Data Vital Signs (Past 12 Hours) Vital Signs Temp Pulse Resp BP Pulse Ox 09/21/18 06:51 36.9 C 88 18 116/57 L 09/21/18 03:37 37.9 C H 85 18 136/64 97 09/21/18 00:22 87 18 139/63 96 09/20/18 19:37 37.0 C 83 16 131/65 98 PG Care Time/CCT Total # of Minutes Spent Total Time Spent with Patient: Total time spent is greater than 50% in coordination of care (as documented) at patient's floor/unit and/or counseling patient: (1) Pancreatitis Acute pancreatitis complication: unspecified Chronicity: acute Pancreatitis type: other Qualified Code(s): K85.80 - Other acute pancreatitis without necrosis or infection (2) Nausea & vomiting Vomiting Intractability: unspecified Vomiting type: unspecified Qualified Code(s): R11.2 - Nausea with vomiting, unspecified (3) Abdominal pain Abdominal location: unspecified location Qualified Code(s): R10.9 - Unspecified abdominal pain
[2018-09-21 07:24] LABS: Basophils # (auto) 0.04 K/uL (0-0.2); Basophils % (auto) 0.2 %; Eosinophils # (auto) 0.69 K/uL (0-0.5); Eosinophils % (auto) 3.6 %; Hematocrit (blood only) 24.7 % (37-47); Hemoglobin 8.2 g/dL (12.0-16.0); Immature Granulocytes # (auto) 0.44 K/uL (0.00-0.02); Immature Granulocytes % (auto) 2.3 %; Lymphocytes % (auto) 7.3 %; Mean Corpuscular Hgb Conc 33.2 g/dL (32-36); Mean Corpuscular Volume 93.2 fL (80-100); Mean Platelet Volume 10.5 fL (7.4-10.4); Monocytes # (auto) 0.94 K/uL (0.11-0.59); Monocytes % (auto) 4.9 %; Neutrophils # (auto) 15.78 K/uL (1.4-6.5); Neutrophils % (auto) 81.7 %; Platelet Count 309 K/uL (130-400); RDW Coefficient of Variation 14.2 % (11.5-14.5); Red Blood Count 2.65 M/uL (4.2-5.4); White Blood Count 19.29 K/uL (4.8-10.8)
[2018-09-21 07:52] LABS: Albumin Level 1.3 gm/dl (3.4-5.0); BUN Creatinine Ratio 31.6 (10-20); C Reactive Protein 14.4 mg/dl (0-0.29); Calcium 8.4 mg/dl (8.5-10.1); Creatinine Clr Calc Pharmacy 18.4 ml/min; Est GFR (African American) 15.7; Est GFR (Non-African American) 13.6; Potassium 4.5 mmol/L (3.5-5.1)
[2018-09-21 07:56] LABS: Albumin Globulin Ratio 0.3 (0.9-2); Bilirubin,Total 0.3 mg/dl (0.2-1); Globulin 3.9 gm/dl (2.5-4.0); Total Protein 5.2 gm/dl (6.4-8.2)
[2018-09-21] MEDS: INSULIN ASPART 100 UNITS/ML 3 ML PEN SC SCH ×4 (08:41→20:18)
[2018-09-21] MEDS: INSULIN GLARGINE SOLOSTAR 100 UNITS/ML 3 ML PEN SQ SCH ×2 (08:42→20:17)
[2018-09-21] MEDS: DICLOFENAC SOD 1% GEL 100 GM TUBE EXT SCH ×4 (08:43→21:41)
[2018-09-21] MEDS: HEPARIN SOD 5,000 UNIT/0.5 ML VIAL SQ SCH ×2 (08:44→20:08)
[2018-09-21] MEDS: GEMFIBROZIL 600 MG TAB PO SCH (08:44)
[2018-09-21] MEDS: ASPIRIN 81 MG ECTAB PO SCH (08:44)
[2018-09-21] MEDS: OMEGA-3 (PURIFIED FISH OIL) 1 GM CAP PO SCH (08:44)
[2018-09-21] MEDS: LACTOBACILLUS ACIDOPHILUS (FLORANEX) TAB PO SCH ×4 (08:44→20:05)
--- NOTE | 2018-09-21 08:55 | Pharmacy Report ---
Pharmacy Abx Dose Short Note - Date of Service September 21, 2018 - Assessment & Plan Assessment 83 year old F receiving vancomycin/imipenem for treatment of possible pneumonia, cellulitis, pancreatitis Day # 3 of antimicrobial therapy. Plan Vancomycin * Trough random this am therapeutic at 20 mcg/ml (goal 15-20 mcg/ml) * Scr continues to trend upward from 2.77 mg/dL to 3.06 mg/dL - CrCl ~18.4 ml/min * ID following patient - suggest patient could be febrile from pancreatitis and recommended repeat scan of abdomen, repeat CT of abdomen collected yesterday suggesting severe pancreatitis and possible concern for choleycystitis * Due to unstable renal function will continue to dose based upon levels * Will dose when estimated vancomycin level closer to 15 mcg/ml - with vancomycin 1000 mg x 1 in order to maintain estimated peak of 30 mcg/ml * Will plan to order random level tomorrow morning to assist with further dosing Imipenem * 200 mg iv q 6 hrs - appropriate for CrCl/no change (CrCl 15-29 ml/min) * Of note, Scr continues to worsen - CrCl today at 18.4 ml/min which is close to lower limit for CrCl/dosing adjustment. Typically for CrCl <15 ml/min patients should not receive imipenem unless HD instituted within 48 hrs - will follow closely but continuation of therapy will need addressed if Scr continues to worsen Pharmacy will continue to follow and will adjust dose/frequency as necessary. Thank you.
[2018-09-21] MEDS: MoRPHine SULFATE 4 MG/ML 1 ML CARP\\VIAL IV PRN (08:57)
--- NOTE | 2018-09-21 09:44 | Nephrology Progress Note ---
Date of Service September 21, 2018 Assessment & Plan (1) Acute kidney injury: LISA related to inflammation and intravascular volume contraction associated w/ pancreatitis. Patient has profound hypoalbuminemia and 3rd spacing of volume. Creatinine is trending down and patient is nonoliguric -- Patient w/ 3rd spacing of volume due to pancreatic inflammation and low serum albumin. Will heplock IV -- Albumin 1.3. Will administer 25 g SPA IV x 1 today -- Monitor volume status, UO and PRP -- BP is acceptable. ARB therapy has been stopped -- 09/[address] reviewed. Inflammation of pancreas and retroperitoneal space essentially unchanged. Rising creatinine & 3rd spacing of volume is concerning for ongoing inflammation (2) Chronic kidney disease, stage IV (severe): -- Baseline creatinine ~ 1.7 - 2.0 (3) Pancreatitis: (4) Cholelithiasis: -- Surgery following, plan cholecystectomy once acute inflammation from pancreatitis has resolved (5) Hypertension: -- Will stop ARB therapy (6) Diabetes mellitus: (7) Cellulitis of left lower extremity: -- On IV Vanco & Imipenem as per primary service. Blood cx negative. Consider narrowing spectrum or stopping ATBx Subjective Mrs. Mike has persistent low back discomfort. She is oxygenating well on O2 at 2L/min NC. She notes that her abdominal, upper and lower extremity swelling has gotten worse Review of Systems Constitutional: no fever Respiratory: no dyspnea Cardiovascular: no chest pain Gastrointestinal: no abdominal pain, no vomiting and no diarrhea/loose stools Physical Exam Constitutional: + ill appearing Eyes: PERRL, conjunctivae normal, anicteric sclerae Neck: trachea midline, no thyromegaly Respiratory: normal respiratory effort, lungs clear to auscultation no respiratory distress Cardiovascular: Rate/Rhythm: regular rate and regular rhythm Extremities: + edema (3+ edema of the arms and legs) Gastrointestinal (Abdomen): Inspection/Auscultation: + abdomen distended and + hypoactive bowel sounds Percussion/Palpation: + abdomen tender; no guarding Skin: + erythema (LLE) Results & Data Vital Signs (Past 12 Hours) Vital Signs Temp Pulse Resp BP Pulse Ox 09/21/18 06:51 36.9 C 88 18 116/57 L 09/21/18 03:37 37.9 C H 85 18 136/64 97 09/21/18 00:22 87 18 139/63 96 Laboratory Results Laboratory Tests 09/21/18 09/21/18 07:02 07:02 WBC 19.29 H Hgb 8.2 L Hct 24.7 L Plt Count 309 Sodium 133 L Potassium 4.5 Chloride 106 Carbon Dioxide 19 L BUN 97 H Creatinine 3.06 H Glucose 111 H (1) Pancreatitis Acute pancreatitis complication: unspecified Chronicity: acute Pancreatitis type: other Qualified Code(s): K85.80 - Other acute pancreatitis without necrosis or infection
--- NOTE | 2018-09-21 10:08 | Surgery Progress Note ---
Date of Service September 21, 2018 Assessment & Plan (1) Pancreatitis: gallstone pancreatitis and pna, wbc downtrending, no abd pain no surgical intervention at this time possible developing pseudocyst, no intervention needed at this time cholecystectomy once improved Subjective severe gallstone pancreatitis, pna. WBC downtrending, no abd pain, ct yest with stable pancreatitis, some increased fluid at tail of pancreas, no abscess or obvious necrosis. Physical Exam Constitutional: WD/WN, vitals as above Gastrointestinal (Abdomen): normal bowel sounds, soft, nontender, no hepatosplenomegaly Results & Data Vital Signs (Past 12 Hours) Vital Signs Temp Pulse Resp BP Pulse Ox 09/21/18 06:51 36.9 C 88 18 116/57 L 09/21/18 03:37 37.9 C H 85 18 136/64 97 09/21/18 00:22 87 18 139/63 96 (1) Pancreatitis Acute pancreatitis complication: unspecified Chronicity: acute Pancreatitis type: other Qualified Code(s): K85.80 - Other acute pancreatitis without necrosis or infection
[2018-09-21 11:29] LABS: Lyme Ab IgG w/WB Rflx Negative (Negative); Lyme Ab IgM w/WB Rflx Negative (Negative)
[2018-09-21] MEDS: ALBUMIN 25% 50 ML IV SCH ×2 (11:32→12:46)
[2018-09-21] MEDS ORDERED: VANCOMYCIN HCL 1,000 MG in SODIUM CHLORIDE 0.9% 250 ML IV ONE (16:00)
[2018-09-21] MEDS: METOPROLOL SUCC 25MG EXT REL TAB PO SCH (20:08)
[2018-09-22] MEDS: MoRPHine SULFATE 4 MG/ML 1 ML CARP\\VIAL IV PRN ×4 (01:05→23:24)
[2018-09-22] MEDS: IMIPENEM/CILASTATIN SODIUM 200 MG in DEXTROSE 5% 100 ML IV SCH ×2 (01:07→08:02)
[2018-09-22] MEDS: LEVOTHYROXINE SODIUM 75 MCG TABLET PO SCH (05:21)
[2018-09-22 06:47] LABS: Hematocrit (blood only) 25.3 % (37-47); Hemoglobin 8.4 g/dL (12.0-16.0); Mean Corpuscular Hgb Conc 33.2 g/dL (32-36); Mean Corpuscular Volume 93.4 fL (80-100); Mean Platelet Volume 9.9 fL (7.4-10.4); Platelet Count 289 K/uL (130-400); RDW Coefficient of Variation 14.3 % (11.5-14.5); RDW Standard Deviation 48.4 fL (36.4-46.3); Red Blood Count 2.71 M/uL (4.2-5.4); White Blood Count 13.52 K/uL (4.8-10.8)
[2018-09-22 07:08] LABS: Basophils # (auto) 0.04 K/uL (0-0.2); Basophils % (auto) 0.3 %; Dohle Bodies 1+; Eosinophils # (auto) 0.48 K/uL (0-0.5); Eosinophils % (auto) 3.6 %; Giant Platelets 1+; Immature Granulocytes # (auto) 0.24 K/uL (0.00-0.02); Immature Granulocytes % (auto) 1.8 %; Lymphocytes # (auto) 1.34 K/uL (1.2-3.4); Lymphocytes % (auto) 9.9 %; Monocytes # (auto) 0.72 K/uL (0.11-0.59); Monocytes % (auto) 5.3 %; Neutrophils % (auto) 79.1 %; Toxic Granulation 1+
[2018-09-22 07:17] LABS: Albumin Level 1.4 gm/dl (3.4-5.0); BUN Creatinine Ratio 35.2 (10-20); Calcium 8.6 mg/dl (8.5-10.1); Creatinine Clr Calc Pharmacy 18.7 ml/min; Est GFR (Non-African American) 13.8; Potassium 4.4 mmol/L (3.5-5.1)
[2018-09-22 07:20] LABS: Albumin Globulin Ratio 0.4 (0.9-2); Bilirubin,Total 0.3 mg/dl (0.2-1); Globulin 3.8 gm/dl (2.5-4.0); Total Protein 5.2 gm/dl (6.4-8.2)
[2018-09-22] MEDS: LACTOBACILLUS ACIDOPHILUS (FLORANEX) TAB PO SCH ×4 (07:56→20:24)
[2018-09-22] MEDS: HEPARIN SOD 5,000 UNIT/0.5 ML VIAL SQ SCH ×2 (08:02→20:27)
[2018-09-22] MEDS: OMEGA-3 (PURIFIED FISH OIL) 1 GM CAP PO SCH (08:02)
[2018-09-22] MEDS: ASPIRIN 81 MG ECTAB PO SCH (08:02)
[2018-09-22] MEDS: GEMFIBROZIL 600 MG TAB PO SCH (08:02)
[2018-09-22] MEDS: CHOLECALCIFEROL 1,000 UNITS TAB PO SCH (08:02)
[2018-09-22] MEDS: INSULIN ASPART 100 UNITS/ML 3 ML PEN SC SCH ×4 (08:03→20:27)
[2018-09-22] MEDS: DICLOFENAC SOD 1% GEL 100 GM TUBE EXT SCH ×4 (08:04→20:25)
[2018-09-22] MEDS: INSULIN GLARGINE SOLOSTAR 100 UNITS/ML 3 ML PEN SQ SCH ×2 (08:04→20:27)
--- NOTE | 2018-09-22 09:57 | Nephrology Progress Note ---
Date of Service September 22, 2018 Assessment & Plan (1) Acute kidney injury: LISA related to inflammation and intravascular volume contraction associated w/ pancreatitis. Patient has profound hypoalbuminemia and 3rd spacing of volume. Creatinineis rising. -- Patient w/ 3rd spacing of volume due to pancreatic inflammation and low serum albumin -- 25 g of SPA albumin provided yesterday -- Goal is to encourage even to slightly negative fluid balance -- Repeat urine studies today -- Monitor volume status, UO and PRP -- BP is acceptable -- 09/[address] reviewed. Inflammation of pancreas and retroperitoneal space essentially unchanged. Rising creatinine & 3rd spacing of volume is concerning for ongoing inflammation (2) Chronic kidney disease, stage IV (severe): -- Baseline creatinine ~ 1.7 - 2.0 (3) Pancreatitis: (4) Cholelithiasis: -- Surgery following, plan cholecystectomy once acute inflammation from pancreatitis has resolved (5) Hypertension: -- BP acceptable (6) Diabetes mellitus: (7) Cellulitis of left lower extremity: -- On IV Vanco & Imipenem as per primary service Subjective No acute events overnight. Dana answers all my questions in short few word responses. She is uncomfortable this morning with joint pains in her shoulders and back. No fevers or chills. She denies shortness of breath. Abdominal pain improved. Abdomen is distended. Edema is increasing. Dana states that she does not know anything about dialysis. She is receptive to HD if indicated. Review of Systems Review of Systems: All systems reviewed & are unremarkable except as noted in HPI & below Physical Exam Constitutional: + ill appearing and + obese Eyes: PERRL, conjunctivae normal, anicteric sclerae ENMT: Mouth: no oral mucosal abnormality and oral mucous membranes not dry Neck: trachea midline, no thyromegaly Respiratory: normal respiratory effort, lungs clear to auscultation no respiratory distress Cardiovascular: RRR, no murmur, no edema Gastrointestinal (Abdomen): Inspection/Auscultation: + abdomen distended and + hypoactive bowel sounds Percussion/Palpation: + abdomen tender; no guarding Musculoskeletal: Extremities: no cyanosis and no clubbing Skin: + turgor decreased and + erythema (LLE) Neurologic: Motor/Sensory: no tremor and no asterixis Results & Data Vital Signs (Past 12 Hours) Vital Signs Temp Pulse Resp BP Pulse Ox 09/22/18 07:24 36.6 C 69 20 137/64 97 09/22/18 02:59 36.6 C 77 16 128/64 97 09/22/18 00:00 36.8 C 96 H 16 145/64 H 96 Laboratory Results Laboratory Results - last 24 hr 09/21/18 09/21/18 09/21/18 07:02 11:13 16:22 WBC RBC Hgb Hct MCV MCH MCHC RDW Std Deviation RDW Coeff of Brian Plt Count MPV Immature Gran % (Auto) Neut % (Auto) Lymph % (Auto) [place] % (Auto) Eos % (Auto) Baso % (Auto) Immature Gran # (Auto) Neut # (Auto) Lymph # (Auto) [place] # (Auto) Eos # (Auto) Baso # (Auto) Toxic Granulation Dohle Bodies Giant Platelets Sodium Potassium Chloride Carbon Dioxide Anion Gap BUN Creatinine Est Cr Clr Drug Dosing Est GFR ( Amer) Est GFR (Non-Af Amer) BUN/Creatinine Ratio Glucose POC Glucose 193 H 101 H Calcium Total Bilirubin AST ALT Alkaline Phosphatase C-Reactive Protein Total Protein Albumin Globulin Albumin/Globulin Ratio Random Vancomycin Lyme Disease IgG Ab Negative Lyme Disease IgM Ab Negative 09/21/18 09/22/18 09/22/18 20:18 06:31 06:31 WBC 13.52 H RBC 2.71 L Hgb 8.4 L Hct 25.3 L MCV 93.4 MCH 31.0 MCHC 33.2 RDW Std Deviation 48.4 H RDW Coeff of Brian 14.3 Plt Count 289 MPV 9.9 Immature Gran % (Auto) 1.8 Neut % (Auto) 79.1 Lymph % (Auto) 9.9 [place] % (Auto) 5.3 Eos % (Auto) 3.6 Baso % (Auto) 0.3 Immature Gran # (Auto) 0.24 H Neut # (Auto) 10.70 H Lymph # (Auto) 1.34 [place] # (Auto) 0.72 H Eos # (Auto) 0.48 Baso # (Auto) 0.04 Toxic Granulation 1+ Dohle Bodies 1+ Giant Platelets 1+ Sodium 137 Potassium 4.4 Chloride 107 Carbon Dioxide 19 L Anion Gap 11.0 BUN 106 H Creatinine 3.02 H Est Cr Clr Drug Dosing 18.7 Est GFR ( Amer) 16.0 Est GFR (Non-Af Amer) 13.8 BUN/Creatinine Ratio 35.2 H Glucose 97 POC Glucose 176 H Calcium 8.6 Total Bilirubin 0.3 AST 43 H ALT 22 Alkaline Phosphatase 109 C-Reactive Protein 13.00 H Total Protein 5.2 L Albumin 1.4 L Globulin 3.8 Albumin/Globulin Ratio 0.4 L Random Vancomycin Lyme Disease IgG Ab Lyme Disease IgM Ab 09/22/18 09/22/18 09/22/18 06:31 07:20 09:27 WBC RBC Hgb Hct MCV MCH MCHC RDW Std Deviation RDW Coeff of Brian Plt Count MPV Immature Gran % (Auto) Neut % (Auto) Lymph % (Auto) [place] % (Auto) Eos % (Auto) Baso % (Auto) Immature Gran # (Auto) Neut # (Auto) Lymph # (Auto) [place] # (Auto) Eos # (Auto) Baso # (Auto) Toxic Granulation Dohle Bodies Giant Platelets Sodium Potassium Chloride Carbon Dioxide Anion Gap BUN Creatinine Pending Est Cr Clr Drug Dosing Pending Est GFR ( Amer) Pending Est GFR (Non-Af Amer) Pending BUN/Creatinine Ratio Glucose POC Glucose 108 H Calcium Total Bilirubin AST ALT Alkaline Phosphatase C-Reactive Protein Total Protein Albumin Globulin Albumin/Globulin Ratio Random Vancomycin 20.4 Lyme Disease IgG Ab Lyme Disease IgM Ab (1) Pancreatitis Acute pancreatitis complication: unspecified Chronicity: acute Pancreatitis type: other Qualified Code(s): K85.80 - Other acute pancreatitis without necrosis or infection
[2018-09-22 10:47] LABS: Creatinine Clr Calc Pharmacy 18.6 ml/min; Est GFR (African American) 15.8; Est GFR (Non-African American) 13.7
[2018-09-22] MEDS ORDERED: VANCOMYCIN HCL 750 MG in SODIUM CHLORIDE 0.9% 250 ML IV ONE (11:00)
--- NOTE | 2018-09-22 11:29 | Pharmacy Report ---
Pharmacy Abx Dose Progress Nt - Date of Service September 22, 2018 - Pharmacy Dosing Scope The patient is currently receiving the following antimicrobial agents per Pharmacy consult: VANCOMYCIN per levels - Objective Height: 5 ft 4 in Weight: 118 kg Vital Signs (Past 12hrs): Vital Signs Temp Pulse Resp BP Pulse Ox 09/22/18 07:24 36.6 C 69 20 137/64 97 09/22/18 02:59 36.6 C 77 16 128/64 97 09/22/18 00:00 36.8 C 96 H 16 145/64 H 96 Lab Results (24hrs): Laboratory Tests (24 Hours) 09/22/18 09/22/18 09/22/18 09:27 06:31 06:31 WBC Neut # (Auto) Creatinine 3.04 H 3.02 H Est Cr Clr Drug Dosing 18.6 18.7 C-Reactive Protein 13.00 H Random Vancomycin 20.4 09/22/18 06:31 WBC 13.52 H Neut # (Auto) 10.70 H Creatinine Est Cr Clr Drug Dosing C-Reactive Protein Random Vancomycin Micro Results: 09/20/18 08:24 Anaerobic Blood Culture - Final Blood 09/16/18 12:13 Aerobic Blood Culture - Final Blood No growth in Aerobic bottle after 5 days. Anaerobic Blood Culture - Final 09/16/18 12:04 Aerobic Blood Culture - Final Blood No growth in Aerobic bottle after 5 days. Anaerobic Blood Culture - Final 09/19/18 14:45 Urine Culture - Final Urine,Indwelling Cath No growth - less than 1,000 colonies/mL. 09/14/18 15:36 Aerobic Blood Culture - Final Blood No growth in Aerobic bottle after 5 days. Anaerobic Blood Culture - Final No growth in Anaerobic bottle after 5 days. 09/14/18 15:27 Aerobic Blood Culture - Final Blood No growth in Aerobic bottle after 5 days. Anaerobic Blood Culture - Final No growth in Anaerobic bottle after 5 days. 09/14/18 Unknown Urine Culture - Final Urine,Indwelling Cath No growth - less than 1,000 colonies/mL. - Risk Factors for Resistance * currently hospitalization of 12 days - Assessment & Plan Assessment 83 year old F receiving vancomycin and Primaxin for treatment of pancreatitis with possible abscess Day # 4 of antimicrobial therapy Plan Vancomycin IV * Random level of 20.4 mcg/mL is therapeutic * Patient specific pharmacokinetics are difficult to calculate. Patient appears to be clearing vancomycin quicker than is expected. Attempt to give this loading dose as close as possible with trough to allow for patient specific pharmacokinetics to be calculated. * Goal trough level for GI infection, possible cellulitis : ~15 mcg/mL * Random level ordered for: 09/23/18 Primaxin IV * Patient's creatinine clearance hovering around 18 mL/min. Once below 10 mL/min WITHOUT dialysis, Primaxin cannot be utilized. This was communicated to ID physician yesterday by JEREMIE Wagner. Pharmacy will continue to follow and will adjust dose/frequency as necessary. Thank you.
--- NOTE | 2018-09-22 14:46 | Infectious Disease Progress Nt ---
Date of Service September 22, 2018 Assessment & Plan (1) Pancreatitis: Patient with acute pancreatitis, cholecystitis, and probable left lower extremity cellulitis with persistent fevers and leukocytosis. Given renal insufficiency, will change imipenem to ertapenem. Will follow. (2) Cellulitis of left lower extremity: Subjective No acute events overnight. . She is uncomfortable this morning with joint pains in her shoulders and back. No fevers or chills. She denies shortness of breath. Abdominal pain improved. Abdomen is distended. Edema is increasing. Review of Systems Review of Systems: All systems reviewed & are unremarkable except as noted in HPI & below Physical Exam Constitutional: WD/WN, vitals as above + morbidly obese and comfortable; no acute distress Eyes: PERRL, conjunctivae normal, anicteric sclerae ENMT: external ear and nose normal, oropharynx normal Neck: trachea midline, no thyromegaly neck nontender Respiratory: normal respiratory effort, lungs clear to auscultation normal percussion; does not use accessory muscles Cardiovascular: Rate/Rhythm: regular rate and regular rhythm Heart Sounds: normal S1 and normal S2; no gallop, no murmur and no cardiac rub Vessels: normal peripheral pulses; no JVD Gastrointestinal (Abdomen): normal bowel sounds, soft, nontender, no hepatosplenomegaly Inspection/Auscultation: + abdomen distended Percussion/Palpation: no abdominal mass Musculoskeletal: no cyanosis or clubbing, extremities motor strength 5/5 Spine: thoracic spine normal to inspection and lumbar spine normal to inspection; no cervical spinal tenderness Skin: normal turgor and + lesion Neurologic: patellar DTR's 2+ bilat, sensation intact no focal motor deficits Psychiatric: A+Ox3, euthymic affect Orientation: cooperative Lymphatic: no cervical or axillary lymphadenopathy no inguinal lymphadenopathy Results & Data Vital Signs (Past 12 Hours) Vital Signs Temp Pulse Resp BP Pulse Ox 09/22/18 11:28 36.5 C 72 23 141/68 H 97 09/22/18 07:24 36.6 C 69 20 137/64 97 09/22/18 02:59 36.6 C 77 16 128/64 97 Laboratory Results Short CBC 09/22/18 Range/Units 06:31 WBC 13.52 H (4.8-10.8) K/uL Hgb 8.4 L (12.0-16.0) g/dL Hct 25.3 L (37-47) % Plt Count 289 (130-400) K/uL BMP 09/22/18 09/22/18 06:31 09:27 Sodium 137 Potassium 4.4 Chloride 107 Carbon Dioxide 19 L BUN 106 H Creatinine 3.02 H 3.04 H Glucose 97 Calcium 8.6 Liver Function 09/22/18 Range/Units 06:31 Total Bilirubin 0.3 (0.2-1) mg/dl AST 43 H (15-37) U/L ALT 22 (12-78) U/L Alkaline Phosphatase 109 (45-117) U/L Albumin 1.4 L (3.4-5.0) gm/dl Diagnostic Findings Microbiology 09/20/18 08:24 Blood Aerobic Blood Culture - Preliminary No growth in Aerobic bottle after 48 hours. 09/20/18 08:24 Blood Anaerobic Blood Culture - Final 09/20/18 08:23 Blood Aerobic Blood Culture - Preliminary No growth in Aerobic bottle after 48 hours. 09/20/18 08:23 Blood Anaerobic Blood Culture - Preliminary No growth in Anaerobic bottle after 48 hours. 09/16/18 12:13 Blood Aerobic Blood Culture - Final No growth in Aerobic bottle after 5 days. 09/16/18 12:13 Blood Anaerobic Blood Culture - Final 09/16/18 12:04 Blood Aerobic Blood Culture - Final No growth in Aerobic bottle after 5 days. 09/16/18 12:04 Blood Anaerobic Blood Culture - Final 09/19/18 14:45 Urine,Indwelling Cath Urine Culture - Final No growth - less than 1,000 colonies/mL. 09/14/18 15:36 Blood Aerobic Blood Culture - Final No growth in Aerobic bottle after 5 days. 09/14/18 15:36 Blood Anaerobic Blood Culture - Final No growth in Anaerobic bottle after 5 days. 09/14/18 15:27 Blood Aerobic Blood Culture - Final No growth in Aerobic bottle after 5 days. 09/14/18 15:27 Blood Anaerobic Blood Culture - Final No growth in Anaerobic bottle after 5 days. 09/14/18 Unknown Urine,Indwelling Cath Urine Culture - Final No growth - less than 1,000 colonies/mL. CT abd pelvis oral con only CLINICAL HISTORY: 83 years-old Female presenting with pancreatitis, no improvement, WBC elevated, day 10. TECHNIQUE: Multidetector CT of the abdomen and pelvis was performed after the administration of oral contrast only. IV contrast: None. One or more dose lowering techniques were used consistent with the principles of ALARA (as low as reasonably achievable), including automatic exposure control, mA or kV adjustment to individual patient size, and/or use of iterative reconstruction. COMPARISON: 09/14/2018 and 09/10/2018. CT DOSE (mGy.cm): The estimated cumulative dose is 1521.30 mGy.cm. FINDINGS: [employer] topogram: Unremarkable. Lung bases: Borderline enlarged heart size. Coronary artery calcification. Small bilateral pleural effusions as on prior exam. Dependent consolidation volume loss in the lower lobes as on prior exam likely passive atelectasis. Liver: Normal morphology. Normal density. Biliary: No gross biliary ductal dilatation allowing for noncontrast technique. Gallbladder is distended. No radiodense gallstones. Pancreas: Enlargement of the pancreas with diffuse parenchymal and peripancreatic fat stranding and fluid. Fluid is again noted along the pancreatic tail tracking to the inferior pole of the spleen. This measures up to 7 cm in diameter. This is stable to slightly enlarged from prior. This does not appear to be well encapsulated. Inflammatory change also tracks into the transverse mesocolon as on prior exam. Retroperitoneal extension of inflammatory change in the anterior pararenal spaces. Spleen: Normal noncontrast appearance. Perisplenic fluid as mentioned. Adrenal glands: Normal noncontrast appearance. Kidneys and ureters: Bilaterally atrophic kidneys with nonspecific moderate perinephric fat infiltration. No nephrolithiasis or hydronephrosis. Ureters nondistended. Bladder: Decompressed with a Bhatt catheter. Pelvic organs: Normal noncontrast appearance. Bowel: Possible rectal descent with pelvic floor laxity. The colon is normal without evidence of wall thickening. Normal appendix. No bowel obstruction. Mild wall thickening of the duodenal bulb suggested with periduodenal fat infiltration as on prior exam. Oral contrast has transited to the distal small bowel. No small bowel wall thickening is apparent. Peritoneal cavity: Small to moderate volume ascites in the paracolic gutters and pelvis, which is slightly increased in volume from prior. No free intraperitoneal gas. Lymph nodes: No gross lymphadenopathy allowing for noncontrast technique. Vasculature: Atherosclerosis of the normal caliber abdominal aorta. Abdominal wall: Diffuse body wall edema, which has worsened from prior exam. Right mastectomy may be present. Musculoskeletal: Severe degenerative changes of the left hip as on prior exam. Degenerative changes of the spine. IMPRESSION: 1. Overall similar appearance of the severe pancreatitis. Evaluation for necrosis is significantly limited in the absence of intravenous contrast. No gross evidence of a pancreatic parenchymal fluid collection to suggest necrosis at this time. Acute peripancreatic fluid collection along the tail tracking to the spleen stable to slightly increased in size from prior. Extension of inflammatory change in the retroperitoneum also stable from prior. 2. Gallbladder distention likely a secondary result of inflammatory change and lack of bile clearance. If there is clinical concern for acute or chronic cholecystitis, HIDA scan may be beneficial. 3. Slight increased volume of the small to moderate ascites. 4. Worsened body wall edema. 5. Persistent small bilateral pleural effusions and passive atelectasis in the lower lobes. Electronically signed by: Gio Cotter M.D. 09/20/2018 2:01 PM Dictated: 09/20/18 1351 (1) Pancreatitis Acute pancreatitis complication: unspecified Chronicity: acute Pancreatitis type: other Qualified Code(s): K85.80 - Other acute pancreatitis without necrosis or infection
[2018-09-22] MEDS: ERTAPENEM SODIUM 500 MG in SODIUM CHLORIDE 0.9% 50 ML IV SCH (15:16)
--- NOTE | 2018-09-22 15:46 | Family Medicine Progress Note ---
Date of Service September 22, 2018 Assessment & Plan (1) Pancreatitis: 83F was admitted on 10 September 2018 for nausea, abdominal pain, and distention. Found to have acute pancreatitis. Pt was started on Zosyn which was narrowed to a cephalosporin on 09/13/18 and then added Levoquin on 09/16/18 which was broadened to Vanc + Imipenem on 09/19/18 WBC elevation, fevers. Blood cultures repeated on 09/10/18 and ID consulted on that day as well for persistent fevers. Currently on Imipenem providing coverage for GI microbial activity from pancreatitis. PMHx: HTN, HLD (TAG ~200), DM2, neuropathy, hypothyroidism: Prior partial thyroidectomy, breast cancer s/p mastectomy in 2000. Morbid obesity (BMI 40). 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 Acute pancreatitis likely 2/2 cholelithiasis Initial worsening of abdominal pain symptoms even after admission, but repeat CT on 09/14 showed persistent pancreatitis without cyst or necrosis. Empiric abx (initially Zosyn) started and narrowed to Cephalosporin on 09/13/18 and then re- broadened on 09/19/18. Repeat CT Scan on 09/20/18 showed no acute changes however GB consistently inflamed. Currently on Imipenem. Surgery and GI following, plan cholecystectomy once acute inflammation from pancreatitis has resolved. c/w IVF NSS @80cc/h - pt is 3rd spacing. Repeat blood cultures negative. Slow and indolent recovery, Day #12 of admission. Imipenem for cholecystitis. No complaints of abdominal pain this morning. Diffuse Edema Pt is up 17kg since admission likely all 3rd spaced given oliguria. Encourage ambulation and incentive spirometry. With numerous conversations provided. Today, talked extensively to patient to encourage ambulation/activity. Compression stockings were ordered but appears patient unable to tolerate. Will add on Boost supplements. Need to increase protein intake to help increase osmotic pull into vasculature system. Acute on chronic CKD stage IV Baseline Cr ~1.7-2.0. Creatinine 3.02 today, low urine output, c/w IVF as above,. Nephrology previously gave Albumin. will follow up on current recs. Atrial fibrillation, new Converted with one dose of IV Lopressor Continue PO metoprolol 25 mg daily CHADVASC 9.8%. On dvt proph anticoagulation, no indication for bridge, will address adding Vitk antagonist vs NOAC at discharge. Bilateral knee pain - chronic Severe and prevents patients from wanting to be moved in bed, let alone engaging in PT/OT Ordered voltaren gel to be applied bilaterally QID Advised nursing to use IV morphine 20-30min prior to moving and therapy Possible pneumonia on CT Scan, 09/19/[address] results with Dr. Cotter, likely atelectasis and not pneumonia. No concerns for ARDS. Pt is no respiratory distress. Abx as above. Diabetes, neuropathy At home, on insulin and gabapentin 200 mg p.o. nightly Hold gabapentin due to renal issues Insulin tightened to Lantus 35BID and tighter ISS scale given patient now eating better Acute on chronic anemia Recent comparisons in Hb 10's. Continue monitoring HTN, hypertriglyceridemia Continue ASA and gemfibrozil. Hold olmesartan for kidney fxn Hypothyroidism Prior partial thyroidectomy. Continue levothyroxine Breast cancer s/p mastectomy in 2000 Diet: Low-fat diet, IVF as above. DVT proph: Heparin twice daily. PT/OT: Ordered. Dispo: Admitted to PCU telemetry. Code status: DNR. (2) Cellulitis of left lower extremity: Continue intravenous Zosyn therapy started in the ED. No signs of current active infection today, no increase in warmth, erythema now most likely post-inflammatory hyper pigmentation. (3) Cholelithiasis: (4) Abdominal pain: (5) Nausea & vomiting: (6) Hypothyroidism (acquired): (7) Diabetes mellitus: (8) Chronic anemia: Supervising Physician Co-Signing Physician Notes Attending attestation Pt seen and examined in concert with Dr. Soliz. In agreement with the documented findings as noted in the resident documentation with any exceptions or additions as noted here. Resting in bed without labored respiration. Abdomen is mildly diffusely TTP without masses. B/L LE edema to the knee L > R. Pancreatitis - likely 2/2 GB disease - no new fevers. Per surgical consultation, would consider intervention following clinical improvement HCAP - continue ertapenem Deconditioning/Weakness - PT/OT consultation appreciated and encouraged patient to work with especially from fluid mobility aspect. Nutritional support. Azotemia s/p hydration for pancreatitis - nephrology consultation appreciated - minimal improvement following albumin infusion Atrial fibrillation - new onset - based on surgical candidacy, will likely start AC tomorrow Else see resident documentation as noted. Subjective Dana notes no improvement in her status today, no worsening or improving symptoms. She notes being aware of need to mobilize and be more active. She notes pain behind right ear from NC tubing. Otherwise, she does not endorse any worsening shortness of breath or chest pain, nausea, vomiting, diarrhea, fever or chills. Physical Exam Constitutional: + ill appearing, + morbidly obese and cooperative Eyes: + anicteric sclerae and EOM intact bilaterally ENMT: NC not in place, repositioned with subjective complaints of right ear tenderness to tubing; no bleeding noted Neck: trachea midline Respiratory: Auscultation: + diminished lung sounds poor respiratory effort; no tachypnea, no respiratory distress Cardiovascular: Rate/Rhythm: regular rate and regular rhythm Extremities: + edema Gastrointestinal (Abdomen): Inspection/Auscultation: + abdomen distended Musculoskeletal: diffuse extremity edema and body edema; diffuse chronic venous stasis of bilateral lower extremities Neurologic: awake Psychiatric: Orientation: alert and oriented x 3 Affect: + flat affect Results & Data Vital Signs (Past 12 Hours) Vital Signs Temp Pulse Resp BP Pulse Ox 09/22/18 15:44 36.6 C 77 16 158/61 H 97 09/22/18 11:28 36.5 C 72 23 141/68 H 97 09/22/18 07:24 36.6 C 69 20 137/64 97 Laboratory Results Laboratory Results - last 24 hr 09/21/18 09/22/18 09/22/18 20:18 06:31 06:31 WBC 13.52 H RBC 2.71 L Hgb 8.4 L Hct 25.3 L MCV 93.4 MCH 31.0 MCHC 33.2 RDW Std Deviation 48.4 H RDW Coeff of Brian 14.3 Plt Count 289 MPV 9.9 Immature Gran % (Auto) 1.8 Neut % (Auto) 79.1 Lymph % (Auto) 9.9 Weber % (Auto) 5.3 Eos % (Auto) 3.6 Baso % (Auto) 0.3 Immature Gran # (Auto) 0.24 H Neut # (Auto) 10.70 H Lymph # (Auto) 1.34 Weber # (Auto) 0.72 H Eos # (Auto) 0.48 Baso # (Auto) 0.04 Toxic Granulation 1+ Dohle Bodies 1+ Giant Platelets 1+ Sodium 137 Potassium 4.4 Chloride 107 Carbon Dioxide 19 L Anion Gap 11.0 BUN 106 H Creatinine 3.02 H Est Cr Clr Drug Dosing 18.7 Est GFR ( Amer) 16.0 Est GFR (Non-Af Amer) 13.8 BUN/Creatinine Ratio 35.2 H Glucose 97 POC Glucose 176 H Calcium 8.6 Total Bilirubin 0.3 AST 43 H ALT 22 Alkaline Phosphatase 109 C-Reactive Protein 13.00 H Total Protein 5.2 L Albumin 1.4 L Globulin 3.8 Albumin/Globulin Ratio 0.4 L Random Vancomycin 09/22/18 09/22/18 09/22/18 06:31 07:20 09:27 WBC RBC Hgb Hct MCV MCH MCHC RDW Std Deviation RDW Coeff of Brian Plt Count MPV Immature Gran % (Auto) Neut % (Auto) Lymph % (Auto) Weber % (Auto) Eos % (Auto) Baso % (Auto) Immature Gran # (Auto) Neut # (Auto) Lymph # (Auto) Weber # (Auto) Eos # (Auto) Baso # (Auto) Toxic Granulation Dohle Bodies Giant Platelets Sodium Potassium Chloride Carbon Dioxide Anion Gap BUN Creatinine 3.04 H Est Cr Clr Drug Dosing 18.6 Est GFR ( Amer) 15.8 Est GFR (Non-Af Amer) 13.7 BUN/Creatinine Ratio Glucose POC Glucose 108 H Calcium Total Bilirubin AST ALT Alkaline Phosphatase C-Reactive Protein Total Protein Albumin Globulin Albumin/Globulin Ratio Random Vancomycin 20.4 09/22/18 11:24 WBC RBC Hgb Hct MCV MCH MCHC RDW Std Deviation RDW Coeff of Brian Plt Count MPV Immature Gran % (Auto) Neut % (Auto) Lymph % (Auto) Weber % (Auto) Eos % (Auto) Baso % (Auto) Immature Gran # (Auto) Neut # (Auto) Lymph # (Auto) Weber # (Auto) Eos # (Auto) Baso # (Auto) Toxic Granulation Dohle Bodies Giant Platelets Sodium Potassium Chloride Carbon Dioxide Anion Gap BUN Creatinine Est Cr Clr Drug Dosing Est GFR ( Amer) Est GFR (Non-Af Amer) BUN/Creatinine Ratio Glucose POC Glucose 189 H Calcium Total Bilirubin AST ALT Alkaline Phosphatase C-Reactive Protein Total Protein Albumin Globulin Albumin/Globulin Ratio Random Vancomycin Medications Administered Aspirin (Ecotrin Ectab) 81 mg PO DAILY MALIK Stop: 10/14/18 08:59 Last Admin: 09/22/18 08:02 Dose: 81 mg Documented by: [id number] Admin: 09/21/18 08:44 Dose: 81 mg Documented by: [id number] Admin: 09/20/18 09:15 Dose: 81 mg Documented by: [id number] Admin: 09/19/18 08:46 Dose: 81 mg Documented by: [id number] Admin: 09/18/18 07:55 Dose: 81 mg Documented by: [id number] Admin: 09/17/18 08:09 Dose: 81 mg Documented by: [id number] Admin: 09/16/18 08:06 Dose: 81 mg Documented by: [id number] Admin: 09/15/18 08:48 Dose: 81 mg Documented by: [id number] Admin: 09/14/18 07:55 Dose: 81 mg Documented by: [id number] Diclofenac Sodium (Voltaren 1% Top) 1 appln EXT QID MALIK Stop: 10/19/18 12:59 Last Admin: 09/22/18 12:38 Dose: 1 appln Documented by: [id number] Admin: 09/22/18 08:04 Dose: 1 appln Documented by: [id number] Admin: 09/21/18 21:41 Dose: Not Given Documented by: [id number] Admin: 09/21/18 17:10 Dose: 1 appln Documented by: [id number] Admin: 09/21/18 12:07 Dose: 1 appln Documented by: [id number] Admin: 09/21/18 08:43 Dose: 1 appln Documented by: [id number] Admin: 09/20/18 20:57 Dose: 1 appln Documented by: [id number] Admin: 09/20/18 18:34 Dose: 1 appln Documented by: [id number] Admin: 09/20/18 16:48 Dose: 1 appln Documented by: [id number] Admin: 09/20/18 11:41 Dose: 1 appln Documented by: [id number] Admin: 09/19/18 21:21 Dose: 1 appln Documented by: [id number] Admin: 09/19/18 17:19 Dose: 1 appln Documented by: [id number] Admin: 09/19/18 12:33 Dose: 1 appln Documented by: [id number] Fish Oil ([place]-3 (Purified Fish Oil)) 1 gm PO QAM [facility] Stop: 10/14/18 08:59 Last Admin: 09/22/18 08:02 Dose: 1 gm Documented by: [id number] Admin: 09/21/18 08:44 Dose: 1 gm Documented by: [id number] Admin: 09/20/18 09:16 Dose: 1 gm Documented by: [id number] Admin: 09/19/18 08:47 Dose: 1 gm Documented by: [id number] Admin: 09/18/18 07:55 Dose: 1 gm Documented by: [id number] Admin: 09/17/18 08:08 Dose: 1 gm Documented by: [id number] Admin: 09/16/18 08:06 Dose: 1 gm Documented by: [id number] Admin: 09/15/18 08:47 Dose: 1 gm Documented by: [id number] Admin: 09/14/18 07:56 Dose: 1 gm Documented by: [id number] Gemfibrozil (Lopid) 600 mg PO QAM [facility]IK Stop: 10/14/18 08:59 Last Admin: 09/22/18 08:02 Dose: 600 mg Documented by: [id number] Admin: 09/21/18 08:44 Dose: 600 mg Documented by: [id number] Admin: 09/20/18 10:35 Dose: 600 mg Documented by: [id number] Admin: 09/19/18 08:45 Dose: 600 mg Documented by: [id number] Admin: 09/18/18 07:55 Dose: 600 mg Documented by: [id number] Admin: 09/17/18 08:08 Dose: 600 mg Documented by: [id number] Admin: 09/16/18 08:06 Dose: 600 mg Documented by: [id number] Admin: 09/15/18 08:48 Dose: 600 mg Documented by: [id number] Admin: 09/14/18 07:55 Dose: 600 mg Documented by: [id number] Heparin Sodium (Porcine) (Heparin Sodium (Porcine)) 5,000 units SQ Q12 [facility] Stop: 10/10/18 20:59 Last Admin: 09/22/18 08:02 Dose: 5,000 units Documented by: [id number] Cosigned by: [id number] Admin: 09/21/18 20:08 Dose: 5,000 units Documented by: [id number] Cosigned by: [id number] Admin: 09/21/18 08:44 Dose: 5,000 units Documented by: [id number] Cosigned by: [id number] Admin: 09/20/18 20:55 Dose: 5,000 units Documented by: [id number] Cosigned by: [id number] Admin: 09/20/18 13:00 Dose: 5,000 units Documented by: [id number] Cosigned by: [id number] Admin: 09/19/18 21:16 Dose: 5,000 units Documented by: [id number] Cosigned by: [id number] Admin: 09/19/18 08:44 Dose: 5,000 units Documented by: [id number] Cosigned by: [id number] Admin: 09/18/18 23:47 Dose: 5,000 units Documented by: [id number] Cosigned by: [id number] Admin: 09/18/18 07:55 Dose: 5,000 units Documented by: [id number] Cosigned by: [id number] Admin: 09/17/18 20:34 Dose: 5,000 units Documented by: [id number] Cosigned by: [id number] Admin: 09/17/18 08:09 Dose: 5,000 units Documented by: [id number] Cosigned by: [id number] Admin: 09/16/18 20:34 Dose: 5,000 units Documented by: [id number] Cosigned by: [id number] Admin: 09/16/18 08:06 Dose: 5,000 units Documented by: [id number] Cosigned by: [id number] Admin: 09/15/18 20:35 Dose: 5,000 units Documented by: [id number] Cosigned by: [id number] Admin: 09/15/18 08:41 Dose: 5,000 units Documented by: [id number] Cosigned by: [id number] Admin: 09/14/18 21:03 Dose: 5,000 units Documented by: [id number] Cosigned by: [id number] Admin: 09/14/18 07:56 Dose: 5,000 units Documented by: [id number] Cosigned by: [id number] Admin: 09/13/18 22:05 Dose: 5,000 units Documented by: [id number] Cosigned by: [id number] Admin: 09/13/18 08:26 Dose: 5,000 units Documented by: [id number] Cosigned by: [id number] Admin: 09/12/18 20:33 Dose: 5,000 units Documented by: [id number] Cosigned by: [id number] Admin: 09/12/18 08:38 Dose: 5,000 units Documented by: [id number] Cosigned by: [id number] Admin: 09/11/18 21:17 Dose: 5,000 units Documented by: [id number] Cosigned by: [id number] Admin: 09/11/18 07:31 Dose: 5,000 units Documented by: [id number] Cosigned by: [id number] Admin: 09/10/18 22:31 Dose: 5,000 units Documented by: [id number] Cosigned by: [id number] Acetaminophen (Ofirmev) 65 mls @ 200 mls/hr IV Q8H PRN; Protocol PRN Reason: Fever Stop: 10/15/18 08:44 Last Infusion: 09/20/18 00:56 Dose: 0 mls/hr Documented by: [id number] Admin: 09/19/18 23:48 Dose: 200 mls/hr Documented by: [id number] Infusion: 09/17/18 19:28 Dose: 0 mls/hr Documented by: [id number] Admin: 09/17/18 19:08 Dose: 200 mls/hr Documented by: [id number] Infusion: 09/16/18 20:53 Dose: 0 mls/hr Documented by: [id number] Admin: 09/16/18 20:33 Dose: 200 mls/hr Documented by: [id number] Ertapenem 500 mg/ Sodium (Chloride) 55 mls @ 100 mls/hr IV Q24H MALIK Stop: 10/02/18 14:59 Last Infusion: 09/22/18 15:55 Dose: 0 mls/hr Documented by: [id number] Admin: 09/22/18 15:16 Dose: 100 mls/hr Documented by: [id number] Insulin Aspart (Novolog Flexpen) 0 units SC ACHS MALIK Stop: 10/17/18 20:59 Last Admin: 09/22/18 12:37 Dose: 8 units Documented by: [id number] Cosigned by: [id number] Admin: 09/22/18 08:03 Dose: 5 units Documented by: [id number] Cosigned by: [id number] Admin: 09/21/18 20:18 Dose: 3 units Documented by: [id number] Cosigned by: [id number] Admin: 09/21/18 17:10 Dose: 11 units Documented by: [id number] Cosigned by: [id number] Admin: 09/21/18 12:06 Dose: 10 units Documented by: [id number] Cosigned by: [id number] Admin: 09/21/18 08:41 Dose: 18 units Documented by: [id number] Cosigned by: [id number] Admin: 09/20/18 20:57 Dose: Not Given Documented by: [id number] Cosigned by: [id number] Admin: 09/20/18 16:51 Dose: 16 units Documented by: [id number] Cosigned by: [id number] Admin: 09/20/18 13:00 Dose: 5 units Documented by: [id number] Cosigned by: [id number] Admin: 09/20/18 08:56 Dose: 14 units Documented by: [id number] Cosigned by: [id number] Admin: 09/19/18 21:21 Dose: 3 units Documented by: [id number] Cosigned by: [id number] Admin: 09/19/18 17:23 Dose: 31 units Documented by: [id number] Cosigned by: [id number] Admin: 09/19/18 12:32 Dose: 16 units Documented by: [id number] Cosigned by: [id number] Admin: 09/19/18 08:43 Dose: 15 units Documented by: [id number] Cosigned by: [id number] Admin: 09/18/18 21:42 Dose: 8 units Documented by: [id number] Cosigned by: [id number] Admin: 09/18/18 17:04 Dose: 10 units Documented by: [id number] Cosigned by: [id number] Admin: 09/18/18 12:25 Dose: 4 units Documented by: [id number] Cosigned by: [id number] Admin: 09/18/18 07:57 Dose: 5 units Documented by: [id number] Cosigned by: [id number] Admin: 09/17/18 20:34 Dose: 2 units Documented by: [id number] Cosigned by: [id number] Insulin Glargine (Lantus Solostar Pen) 35 units SQ BID MALIK Stop: 10/19/18 20:59 Last Admin: 09/22/18 08:04 Dose: 35 units Documented by: [id number] Cosigned by: [id number] Admin: 09/21/18 20:17 Dose: 35 units Documented by: [id number] Cosigned by: [id number] Admin: 09/21/18 08:42 Dose: 35 units Documented by: [id number] Cosigned by: [id number] Admin: 09/20/18 20:56 Dose: 35 units Documented by: [id number] Cosigned by: [id number] Admin: 09/20/18 08:57 Dose: 35 units Documented by: [id number] Cosigned by: [id number] Admin: 09/19/18 21:18 Dose: 35 units Documented by: [id number] Cosigned by: [id number] Lactobacillus Acidophilus (Floranex) 4 tab PO QIDM [facility] Stop: 10/19/18 11:59 Last Admin: 09/22/18 12:38 Dose: 4 tab Documented by: [id number] Admin: 09/22/18 07:56 Dose: 4 tab Documented by: [id number] Admin: 09/21/18 20:05 Dose: 4 tab Documented by: [id number] Admin: 09/21/18 17:09 Dose: 4 tab Documented by: [id number] Admin: 09/21/18 12:05 Dose: 4 tab Documented by: [id number] Admin: 09/21/18 08:44 Dose: 4 tab Documented by: [id number] Admin: 09/20/18 20:54 Dose: 4 tab Documented by: [id number] Admin: 09/20/18 16:49 Dose: 4 tab Documented by: [id number] Admin: 09/20/18 13:02 Dose: Not Given Documented by: [id number] Admin: 09/20/18 09:14 Dose: 4 tab Documented by: [id number] Admin: 09/19/18 21:16 Dose: 4 tab Documented by: [id number] Admin: 09/19/18 17:20 Dose: 4 tab Documented by: [id number] Admin: 09/19/18 12:33 Dose: 4 tab Documented by: [id number] Levothyroxine Sodium (Synthroid) 75 mcg PO DAILYBB [facility] Stop: 10/14/18 06:29 Last Admin: 09/22/18 05:21 Dose: 75 mcg Documented by: [id number] Admin: 09/21/18 06:26 Dose: 75 mcg Documented by: [id number] Admin: 09/20/18 05:54 Dose: 75 mcg Documented by: [id number] Admin: 09/19/18 06:49 Dose: 75 mcg Documented by: [id number] Admin: 09/18/18 05:28 Dose: 75 mcg Documented by: [id number] Admin: 09/17/18 06:37 Dose: 75 mcg Documented by: [id number] Admin: 09/16/18 05:59 Dose: 75 mcg Documented by: [id number] Admin: 09/15/18 06:38 Dose: 75 mcg Documented by: [id number] Admin: 09/14/18 06:29 Dose: 75 mcg Documented by: [id number] Metoprolol Succinate (Toprol Xl) 25 mg PO QPM MALIK Stop: 10/15/18 20:59 Last Admin: 09/21/18 20:08 Dose: 25 mg Documented by: [id number] Admin: 09/20/18 20:57 Dose: 25 mg Documented by: [id number] Admin: 09/19/18 21:17 Dose: 25 mg Documented by: [id number] Admin: 09/18/18 23:47 Dose: 25 mg Documented by: [id number] Admin: 09/17/18 20:35 Dose: 25 mg Documented by: [id number] Admin: 09/16/18 20:34 Dose: 25 mg Documented by: [id number] Admin: 09/15/18 20:35 Dose: 25 mg Documented by: [id number] Morphine Sulfate (Morphine Sulfate) 3 mg IV Q2H PRN PRN Reason: Pain Stop: 09/24/18 20:08 Last Admin: 09/22/18 08:16 Dose: 3 mg Documented by: [id number] Admin: 09/22/18 01:05 Dose: 3 mg Documented by: [id number] Admin: 09/21/18 08:57 Dose: 3 mg Documented by: [id number] Admin: 09/20/18 13:11 Dose: 3 mg Documented by: [id number] Admin: 09/20/18 09:11 Dose: 3 mg Documented by: [id number] Admin: 09/19/18 15:42 Dose: 3 mg Documented by: [id number] Admin: 09/15/18 08:52 Dose: 3 mg Documented by: [id number] Admin: 09/14/18 08:25 Dose: 3 mg Documented by: [id number] Admin: 09/14/18 01:51 Dose: 3 mg Documented by: [id number] Admin: 09/12/18 08:56 Dose: 3 mg Documented by: [id number] Admin: 09/12/18 01:44 Dose: 3 mg Documented by: [id number] Admin: 09/11/18 13:18 Dose: 3 mg Documented by: [id number] Admin: 09/11/18 07:30 Dose: 3 mg Documented by: [id number] Admin: 09/11/18 04:24 Dose: 3 mg Documented by: [id number] Admin: 09/10/18 22:31 Dose: 3 mg Documented by: [id number] Vitamin D (Vitamin D3) 2,000 units PO [id number] [facility] Stop: 10/15/18 08:59 Last Admin: 09/22/18 08:02 Dose: 2,000 units Documented by: [id number] Admin: 09/19/18 08:46 Dose: 2,000 units Documented by: [id number] Admin: 09/17/18 08:08 Dose: 2,000 units Documented by: [id number] Admin: 09/15/18 08:48 Dose: 2,000 units Documented by: [id number] PG Care Time/CCT Total # of Minutes Spent Total Time Spent with Patient: Total time spent is greater than 50% in coordination of care (as documented) at patient's floor/unit and/or counseling patient: Resident Activity Tracking Resident Involvement: Resident Care Provided Care Provided: Adult Hospital Medicine (1) Pancreatitis Acute pancreatitis complication: unspecified Chronicity: acute Pancreatitis type: other Qualified Code(s): K85.80 - Other acute pancreatitis without necrosis or infection (2) Nausea & vomiting Vomiting Intractability: unspecified Vomiting type: unspecified Qualified Code(s): R11.2 - Nausea with vomiting, unspecified (3) Abdominal pain Abdominal location: unspecified location Qualified Code(s): R10.9 - Unspecified abdominal pain
[2018-09-22 17:36] LABS: Appearance Urine Cloudy (Clear); Bilirubin Urine Negative (Negative); Blood Urine 2+ (Negative); Color Urine Yellow; Glucose Urine UA Negative (Negative); Ketones Urine Negative (Negative); Leukocyte Esterase Urine 1+ (Negative); Nitrite Urine Negative (Negative); Protein Urine Negative (Negative); Specific Gravity Urine 1.015 (1.000-1.030); Urobilinogen Urine Negative (Negative)
[2018-09-22 17:43] LABS: Epithelial Cell Urine >30 /lpf (0-5)
[2018-09-22 17:44] LABS: Hyaline Casts Urine 0-5 /lpf (0-5); WBC Urine >30 /hpf (0-5)
[2018-09-22 17:45] LABS: RBC Urine >30 /hpf (0-4)
[2018-09-22 17:46] LABS: Bacteria Urine 2+ (Negative)
[2018-09-22] MEDS: METOPROLOL SUCC 25MG EXT REL TAB PO SCH (20:24)
[2018-09-23] MEDS: MoRPHine SULFATE 4 MG/ML 1 ML CARP\\VIAL IV PRN ×4 (02:27→23:10)
[2018-09-23] MEDS: LEVOTHYROXINE SODIUM 75 MCG TABLET PO SCH (05:31)
[2018-09-23 06:20] LABS: Hematocrit (blood only) 25.9 % (37-47); Hemoglobin 8.5 g/dL (12.0-16.0); Mean Corpuscular Hgb Conc 32.8 g/dL (32-36); Mean Corpuscular Volume 93.2 fL (80-100); Mean Platelet Volume 10.1 fL (7.4-10.4); Platelet Count 297 K/uL (130-400); RDW Coefficient of Variation 14.1 % (11.5-14.5); RDW Standard Deviation 48.2 fL (36.4-46.3); Red Blood Count 2.78 M/uL (4.2-5.4); White Blood Count 11.48 K/uL (4.8-10.8)
--- NOTE | 2018-09-23 06:42 | Family Medicine Progress Note ---
Date of Service September 23, 2018 Assessment & Plan (1) Pancreatitis: 83F was admitted on 10 September 2018 for nausea, abdominal pain, and distention. Found to have acute pancreatitis. Pt was started on Zosyn which was narrowed to a cephalosporin on 09/13/18 and then added Levoquin on 09/16/18 which was broadened to Vanc + Imipenem on 09/19/18 WBC elevation, fevers. Blood cultures repeated on 09/10/18 and ID consulted on that day as well for persistent fevers. Currently on Imipenem providing coverage for GI microbial activity from pancreatitis. PMHx: HTN, HLD (TAG ~200), DM2, neuropathy, hypothyroidism: Prior partial thyroidectomy, breast cancer s/p mastectomy in 2000. Morbid obesity (BMI 40). 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 Acute pancreatitis likely 2/2 cholelithiasis Initial worsening of abdominal pain symptoms after admission (now no complaints), but repeat CT on 09/14 showed persistent pancreatitis without cyst or necrosis. Empiric abx (initially Zosyn) started and narrowed to Cephalosporin on 09/13/18 and then re-broadened on 09/19/18. Repeat CT Scan on 09/20/18 showed no acute changes however GB consistently inflamed. Currently on Imipenem. Surgery and GI following, plan cholecystectomy once acute inflammation from pancreatitis has resolved. Has been on IVF NSS @80cc/h - pt is 3rd spacing. Discussed with Nephro this morning about possibly discontinuing as goal would be to take fluid off and she is tolerating breakfast without difficulty. Repeat blood cultures negative. Slow and indolent recovery, Day #13 of admission. Imipenem for cholecystitis. No complaints of abdominal pain this morning. Diffuse Edema Pt is up 17kg since admission likely all 3rd spaced given oliguria. Encourage ambulation and incentive spirometry. With numerous conversations provided. Today, providing continued coaching to patient to encourage ambulation/activity. Compression stockings were ordered but appears patient unable to tolerate. On Boost supplements. Need to increase protein intake to help increase osmotic pull into vasculature system. Acute on chronic CKD stage IV Baseline Cr ~1.7-2.0. Creatinine 3.02 (09/22); appears improved to 2.77 today, low urine output but is slightly improved from previous. Nephrology previously gave Albumin. will follow up on current recs. Atrial fibrillation, new Converted with one dose of IV Lopressor Continue PO metoprolol 25 mg daily CHADVASC 9.8%. On dvt proph anticoagulation, no indication for bridge, will address adding Vitk antagonist vs NOAC at discharge. Bilateral knee pain - chronic Severe and prevents patients from wanting to be moved in bed, let alone engaging in PT/OT Ordered voltaren gel to be applied bilaterally QID Advised nursing to use IV morphine 20-30min prior to moving and therapy Possible pneumonia on CT Scan, 09/19/[address] results with Dr. Cotter, likely atelectasis and not pneumonia. No concerns for ARDS. Pt is no respiratory distress. Abx as above. Diabetes, neuropathy At home, on insulin and gabapentin 200 mg p.o. nightly Hold gabapentin due to renal issues Insulin tightened to Lantus 35BID and tighter ISS scale given patient now eating better Acute on chronic anemia Recent comparisons in Hb 10's. Continue monitoring HTN, hypertriglyceridemia Continue ASA and gemfibrozil. Hold olmesartan for kidney fxn Hypothyroidism Prior partial thyroidectomy. Continue levothyroxine Breast cancer s/p mastectomy in 2000 Diet: Low-fat diet, IVF as above. DVT proph: Heparin twice daily. PT/OT: Ordered. Dispo: Admitted to PCU telemetry. Code status: DNR. (2) Cellulitis of left lower extremity: Continue intravenous Zosyn therapy started in the ED. No signs of current active infection today, no increase in warmth, erythema now most likely post-inflammatory hyper pigmentation. (3) Cholelithiasis: (4) Abdominal pain: (5) Nausea & vomiting: (6) Hypothyroidism (acquired): (7) Diabetes mellitus: Basal insulin dosage will be decreased by 50%. Sliding scale coverage (8) Chronic anemia: Supervising Physician Co-Signing Physician Notes Attending attestation Pt seen and examined in concert with Dr. Soliz. In agreement with the documented findings as noted in the resident documentation with any exceptions or additions as noted here. Improved but still significant diffuse abdominal discomfort. Persistent bilateral LE aching and swelling with 2+ pitting edema to the thigh appreciated. Patient did engage some with PT, but had considerable difficulty. Acute pancreatitis with underlying cholelithiasis - no intended surgical intervention at present - continue imipenem. Would d/c IVF as noted below. Severe edema in the setting of Acute on CKDIV - nephrology consultation appreciated. D/C IVF to limit intake. Encourage PT/OT. Improvement in Cr would indicate ability to start diuresis, so add furosemide x 1 and monitor UOP Atrial fibrillation - continue metoprolol. AC at discharge. Else see resident documentation as noted. Suyapa Cortez had no acute events overnight. She continues to endorse bilateral leg pain but no worsening shortness of breath or chest pain, nausea, vomiting, diarrhea. She tolerated breakfast. She notes feeling sleepy and only able to provide simple answers and does not expand or is very conversative. Physical Exam Constitutional: + ill appearing, + morbidly obese and cooperative significant diffuse body edema Eyes: + anicteric sclerae and EOM intact bilaterally Neck: trachea midline Respiratory: Auscultation: + diminished lung sounds Cardiovascular: Rate/Rhythm: regular rate and regular rhythm Extremities: + edema Gastrointestinal (Abdomen): Inspection/Auscultation: + abdomen distended Skin: chronic venous stasis and old appearing chronic ulcerations without signs of current active infection Neurologic: awake Psychiatric: Orientation: alert and oriented x 3 Affect: + flat affect Results & Data Vital Signs (Past 12 Hours) Vital Signs Temp Pulse Pulse Resp BP Pulse Ox 09/23/18 04:07 36.6 C 82 18 95/59 L 97 09/23/18 00:24 87 09/22/18 23:32 37.1 C 84 16 122/68 97 09/22/18 20:21 36.8 C 83 17 145/74 H 97 Laboratory Results Laboratory Results - last 24 hr 09/22/18 09/22/18 09/22/18 11:24 16:33 16:40 WBC RBC Hgb Hct MCV MCH MCHC RDW Std Deviation RDW Coeff of Brian Plt Count MPV Immature Gran % (Auto) Neut % (Auto) Lymph % (Auto) [place] % (Auto) Eos % (Auto) Baso % (Auto) Immature Gran # (Auto) Neut # (Auto) Lymph # (Auto) [place] # (Auto) Eos # (Auto) Baso # (Auto) Sodium Potassium Chloride Carbon Dioxide Anion Gap BUN Creatinine Est Cr Clr Drug Dosing Est GFR ( Amer) Est GFR (Non-Af Amer) BUN/Creatinine Ratio Glucose POC Glucose 189 H 121 H Calcium Total Bilirubin AST ALT Alkaline Phosphatase Total Protein Albumin Globulin Albumin/Globulin Ratio Urine Color Yellow Urine Appearance Cloudy A Urine pH 5.0 Ur Specific [place] 1.015 Urine Protein Negative Urine Glucose (UA) Negative Urine Ketones Negative Urine Blood 2+ H Urine Nitrite Negative Urine Bilirubin Negative Urine Urobilinogen Negative Ur Leukocyte Esterase 1+ H Urine RBC >30 H Urine WBC >30 H Ur Epithelial Cells >30 H Urine Bacteria 2+ H Hyaline Casts 0-5 Granular Casts 5-10 H Ur Random Sodium Random Vancomycin 09/22/18 09/22/18 09/23/18 16:40 20:25 05:58 WBC 11.48 H RBC 2.78 L Hgb 8.5 L Hct 25.9 L MCV 93.2 MCH 30.6 MCHC 32.8 RDW Std Deviation 48.2 H RDW Coeff of Brian 14.1 Plt Count 297 MPV 10.1 Immature Gran % (Auto) 1.8 Neut % (Auto) 79.0 Lymph % (Auto) 10.8 [place] % (Auto) 4.4 Eos % (Auto) 3.7 Baso % (Auto) 0.3 Immature Gran # (Auto) 0.21 H Neut # (Auto) 9.07 H Lymph # (Auto) 1.24 [place] # (Auto) 0.50 Eos # (Auto) 0.43 Baso # (Auto) 0.03 Sodium Potassium Chloride Carbon Dioxide Anion Gap BUN Creatinine Est Cr Clr Drug Dosing Est GFR ( Amer) Est GFR (Non-Af Amer) BUN/Creatinine Ratio Glucose POC Glucose 108 H Calcium Total Bilirubin AST ALT Alkaline Phosphatase Total Protein Albumin Globulin Albumin/Globulin Ratio Urine Color Urine Appearance Urine pH Ur Specific [place] Urine Protein Urine Glucose (UA) Urine Ketones Urine Blood Urine Nitrite Urine Bilirubin Urine Urobilinogen Ur Leukocyte Esterase Urine RBC Urine WBC Ur Epithelial Cells Urine Bacteria Hyaline Casts Granular Casts Ur Random Sodium 25 Random Vancomycin 09/23/18 09/23/18 09/23/18 05:58 05:58 07:16 WBC RBC Hgb Hct MCV MCH MCHC RDW Std Deviation RDW Coeff of Brian Plt Count MPV Immature Gran % (Auto) Neut % (Auto) Lymph % (Auto) [place] % (Auto) Eos % (Auto) Baso % (Auto) Immature Gran # (Auto) Neut # (Auto) Lymph # (Auto) [place] # (Auto) Eos # (Auto) Baso # (Auto) Sodium 139 Potassium 4.6 Chloride 109 H Carbon Dioxide 19 L Anion Gap 11.0 BUN 111 H Creatinine 2.77 H Est Cr Clr Drug Dosing 20.8 Est GFR ( Amer) 17.7 Est GFR (Non-Af Amer) 15.3 BUN/Creatinine Ratio 39.9 H Glucose 78 POC Glucose 86 Calcium 8.9 Total Bilirubin 0.3 AST 73 H ALT 25 Alkaline Phosphatase 106 Total Protein 5.4 L Albumin 1.4 L Globulin 4.0 Albumin/Globulin Ratio 0.3 L Urine Color Urine Appearance Urine pH Ur Specific [place] Urine Protein Urine Glucose (UA) Urine Ketones Urine Blood Urine Nitrite Urine Bilirubin Urine Urobilinogen Ur Leukocyte Esterase Urine RBC Urine WBC Ur Epithelial Cells Urine Bacteria Hyaline Casts Granular Casts Ur Random Sodium Random Vancomycin 20.0 09/23/18 11:21 WBC RBC Hgb Hct MCV MCH MCHC RDW Std Deviation RDW Coeff of Brian Plt Count MPV Immature Gran % (Auto) Neut % (Auto) Lymph % (Auto) [place] % (Auto) Eos % (Auto) Baso % (Auto) Immature Gran # (Auto) Neut # (Auto) Lymph # (Auto) [place] # (Auto) Eos # (Auto) Baso # (Auto) Sodium Potassium Chloride Carbon Dioxide Anion Gap BUN Creatinine Est Cr Clr Drug Dosing Est GFR ( Amer) Est GFR (Non-Af Amer) BUN/Creatinine Ratio Glucose POC Glucose 101 H Calcium Total Bilirubin AST ALT Alkaline Phosphatase Total Protein Albumin Globulin Albumin/Globulin Ratio Urine Color Urine Appearance Urine pH Ur Specific [place] Urine Protein Urine Glucose (UA) Urine Ketones Urine Blood Urine Nitrite Urine Bilirubin Urine Urobilinogen Ur Leukocyte Esterase Urine RBC Urine WBC Ur Epithelial Cells Urine Bacteria Hyaline Casts Granular Casts Ur Random Sodium Random Vancomycin Medications Administered Aspirin (Ecotrin Ectab) 81 mg PO DAILY [facility] Stop: 10/14/18 08:59 Last Admin: 09/23/18 07:45 Dose: 81 mg Documented by: [id number] Admin: 09/22/18 08:02 Dose: 81 mg Documented by: [id number] Admin: 09/21/18 08:44 Dose: 81 mg Documented by: [id number] Admin: 09/20/18 09:15 Dose: 81 mg Documented by: [id number] Admin: 09/19/18 08:46 Dose: 81 mg Documented by: [id number] Admin: 09/18/18 07:55 Dose: 81 mg Documented by: [id number] Admin: 09/17/18 08:09 Dose: 81 mg Documented by: [id number] Admin: 09/16/18 08:06 Dose: 81 mg Documented by: [id number] Admin: 09/15/18 08:48 Dose: 81 mg Documented by: [id number] Admin: 09/14/18 07:55 Dose: 81 mg Documented by: [id number] Diclofenac Sodium (Voltaren 1% Top) 1 appln EXT QID MALIK Stop: 10/19/18 12:59 Last Admin: 09/23/18 11:51 Dose: 1 appln Documented by: [id number] Admin: 09/23/18 07:48 Dose: 1 appln Documented by: [id number] Admin: 09/22/18 20:25 Dose: 1 appln Documented by: [id number] Admin: 09/22/18 17:52 Dose: 1 appln Documented by: [id number] Admin: 09/22/18 12:38 Dose: 1 appln Documented by: [id number] Admin: 09/22/18 08:04 Dose: 1 appln Documented by: [id number] Admin: 09/21/18 21:41 Dose: Not Given Documented by: [id number] Admin: 09/21/18 17:10 Dose: 1 appln Documented by: [id number] Admin: 09/21/18 12:07 Dose: 1 appln Documented by: [id number] Admin: 09/21/18 08:43 Dose: 1 appln Documented by: [id number] Admin: 09/20/18 20:57 Dose: 1 appln Documented by: [id number] Admin: 09/20/18 18:34 Dose: 1 appln Documented by: [id number] Admin: 09/20/18 16:48 Dose: 1 appln Documented by: [id number] Admin: 09/20/18 11:41 Dose: 1 appln Documented by: [id number] Admin: 09/19/18 21:21 Dose: 1 appln Documented by: [id number] Admin: 09/19/18 17:19 Dose: 1 appln Documented by: [id number] Admin: 09/19/18 12:33 Dose: 1 appln Documented by: [id number] Fish Oil (Lusby-3 (Purified Fish Oil)) 1 gm PO QAM MALIK Stop: 10/14/18 08:59 Last Admin: 09/23/18 07:45 Dose: 1 gm Documented by: [id number] Admin: 09/22/18 08:02 Dose: 1 gm Documented by: [id number] Admin: 09/21/18 08:44 Dose: 1 gm Documented by: [id number] Admin: 09/20/18 09:16 Dose: 1 gm Documented by: [id number] Admin: 09/19/18 08:47 Dose: 1 gm Documented by: [id number] Admin: 09/18/18 07:55 Dose: 1 gm Documented by: [id number] Admin: 09/17/18 08:08 Dose: 1 gm Documented by: [id number] Admin: 09/16/18 08:06 Dose: 1 gm Documented by: [id number] Admin: 09/15/18 08:47 Dose: 1 gm Documented by: [id number] Admin: 09/14/18 07:56 Dose: 1 gm Documented by: [id number] Gemfibrozil (Lopid) 600 mg PO QAM MALIK Stop: 10/14/18 08:59 Last Admin: 09/23/18 07:44 Dose: 600 mg Documented by: [id number] Admin: 09/22/18 08:02 Dose: 600 mg Documented by: [id number] Admin: 09/21/18 08:44 Dose: 600 mg Documented by: [id number] Admin: 09/20/18 10:35 Dose: 600 mg Documented by: [id number] Admin: 09/19/18 08:45 Dose: 600 mg Documented by: [id number] Admin: 09/18/18 07:55 Dose: 600 mg Documented by: [id number] Admin: 09/17/18 08:08 Dose: 600 mg Documented by: [id number] Admin: 09/16/18 08:06 Dose: 600 mg Documented by: [id number] Admin: 09/15/18 08:48 Dose: 600 mg Documented by: [id number] Admin: 09/14/18 07:55 Dose: 600 mg Documented by: [id number] Heparin Sodium (Porcine) (Heparin Sodium (Porcine)) 5,000 units SQ Q12 MALIK Stop: 10/10/18 20:59 Last Admin: 09/23/18 07:46 Dose: 5,000 units Documented by: [id number] Cosigned by: [id number] Admin: 09/22/18 20:27 Dose: 5,000 units Documented by: [id number] Cosigned by: [id number] Admin: 09/22/18 08:02 Dose: 5,000 units Documented by: [id number] Cosigned by: [id number] Admin: 09/21/18 20:08 Dose: 5,000 units Documented by: [id number] Cosigned by: [id number] Admin: 09/21/18 08:44 Dose: 5,000 units Documented by: [id number] Cosigned by: [id number] Admin: 09/20/18 20:55 Dose: 5,000 units Documented by: [id number] Cosigned by: [id number] Admin: 09/20/18 13:00 Dose: 5,000 units Documented by: [id number] Cosigned by: [id number] Admin: 09/19/18 21:16 Dose: 5,000 units Documented by: [id number] Cosigned by: [id number] Admin: 09/19/18 08:44 Dose: 5,000 units Documented by: [id number] Cosigned by: [id number] Admin: 09/18/18 23:47 Dose: 5,000 units Documented by: [id number] Cosigned by: [id number] Admin: 09/18/18 07:55 Dose: 5,000 units Documented by: [id number] Cosigned by: [id number] Admin: 09/17/18 20:34 Dose: 5,000 units Documented by: [id number] Cosigned by: [id number] Admin: 09/17/18 08:09 Dose: 5,000 units Documented by: [id number] Cosigned by: [id number] Admin: 09/16/18 20:34 Dose: 5,000 units Documented by: [id number] Cosigned by: [id number] Admin: 09/16/18 08:06 Dose: 5,000 units Documented by: [id number] Cosigned by: [id number] Admin: 09/15/18 20:35 Dose: 5,000 units Documented by: [id number] Cosigned by: [id number] Admin: 09/15/18 08:41 Dose: 5,000 units Documented by: [id number] Cosigned by: [id number] Admin: 09/14/18 21:03 Dose: 5,000 units Documented by: [id number] Cosigned by: [id number] Admin: 09/14/18 07:56 Dose: 5,000 units Documented by: [id number] Cosigned by: [id number] Admin: 09/13/18 22:05 Dose: 5,000 units Documented by: [id number] Cosigned by: [id number] Admin: 09/13/18 08:26 Dose: 5,000 units Documented by: [id number] Cosigned by: [id number] Admin: 09/12/18 20:33 Dose: 5,000 units Documented by: [id number] Cosigned by: [id number] Admin: 09/12/18 08:38 Dose: 5,000 units Documented by: [id number] Cosigned by: [id number] Admin: 09/11/18 21:17 Dose: 5,000 units Documented by: [id number] Cosigned by: [id number] Admin: 09/11/18 07:31 Dose: 5,000 units Documented by: [id number] Cosigned by: [id number] Admin: 09/10/18 22:31 Dose: 5,000 units Documented by: [id number] Cosigned by: [id number] Acetaminophen (irm) 65 mls @ 200 mls/hr IV Q8H PRN; Protocol PRN Reason: Fever Stop: 10/15/18 08:44 Last Infusion: 09/20/18 00:56 Dose: 0 mls/hr Documented by: [id number] Admin: 09/19/18 23:48 Dose: 200 mls/hr Documented by: [id number] Infusion: 09/17/18 19:28 Dose: 0 mls/hr Documented by: [id number] Admin: 09/17/18 19:08 Dose: 200 mls/hr Documented by: [id number] Infusion: 09/16/18 20:53 Dose: 0 mls/hr Documented by: [id number] Admin: 09/16/18 20:33 Dose: 200 mls/hr Documented by: [id number] Ertapenem 500 mg/ Sodium (Chloride) 55 mls @ 100 mls/hr IV Q24H MALIK Stop: 10/02/18 14:59 Last Infusion: 09/22/18 15:55 Dose: 0 mls/hr Documented by: [id number] Admin: 09/22/18 15:16 Dose: 100 mls/hr Documented by: [id number] Vancomycin HCl 750 mg/ Sodium (Chloride) 265 mls @ 125 mls/hr IV TODAY@1000 ONE Stop: 09/23/18 12:07 Last Admin: 09/23/18 09:51 Dose: 125 mls/hr Documented by: [id number] Insulin Aspart (Novolog Flexpen) 0 units SC ACHS MALIK Stop: 10/17/18 20:59 Last Admin: 09/23/18 11:52 Dose: 2 units Documented by: [id number] Cosigned by: [id number] Admin: 09/23/18 07:50 Dose: 9 units Documented by: [id number] Cosigned by: [id number] Admin: 09/22/18 20:27 Dose: Not Given Documented by: [id number] Cosigned by: [id number] Admin: 09/22/18 17:51 Dose: Not Given Documented by: [id number] Cosigned by: [id number] Admin: 09/22/18 12:37 Dose: 8 units Documented by: [id number] Cosigned by: [id number] Admin: 09/22/18 08:03 Dose: 5 units Documented by: [id number] Cosigned by: [id number] Admin: 09/21/18 20:18 Dose: 3 units Documented by: [id number] Cosigned by: [id number] Admin: 09/21/18 17:10 Dose: 11 units Documented by: [id number] Cosigned by: [id number] Admin: 09/21/18 12:06 Dose: 10 units Documented by: [id number] Cosigned by: [id number] Admin: 09/21/18 08:41 Dose: 18 units Documented by: [id number] Cosigned by: [id number] Admin: 09/20/18 20:57 Dose: Not Given Documented by: [id number] Cosigned by: [id number] Admin: 09/20/18 16:51 Dose: 16 units Documented by: [id number] Cosigned by: [id number] Admin: 09/20/18 13:00 Dose: 5 units Documented by: [id number] Cosigned by: [id number] Admin: 09/20/18 08:56 Dose: 14 units Documented by: [id number] Cosigned by: [id number] Admin: 09/19/18 21:21 Dose: 3 units Documented by: [id number] Cosigned by: [id number] Admin: 09/19/18 17:23 Dose: 31 units Documented by: [id number] Cosigned by: [id number] Admin: 09/19/18 12:32 Dose: 16 units Documented by: [id number] Cosigned by: [id number] Admin: 09/19/18 08:43 Dose: 15 units Documented by: [id number] Cosigned by: [id number] Admin: 09/18/18 21:42 Dose: 8 units Documented by: [id number] Cosigned by: [id number] Admin: 09/18/18 17:04 Dose: 10 units Documented by: [id number] Cosigned by: [id number] Admin: 09/18/18 12:25 Dose: 4 units Documented by: [id number] Cosigned by: [id number] Admin: 09/18/18 07:57 Dose: 5 units Documented by: [id number] Cosigned by: [id number] Admin: 09/17/18 20:34 Dose: 2 units Documented by: [id number] Cosigned by: [id number] Insulin Glargine (Lantus Solostar Pen) 35 units SQ BID [facility] Stop: 10/19/18 20:59 Last Admin: 09/23/18 07:45 Dose: 35 units Documented by: [id number] Cosigned by: [id number] Admin: 09/22/18 20:27 Dose: 35 units Documented by: [id number] Cosigned by: [id number] Admin: 09/22/18 08:04 Dose: 35 units Documented by: [id number] Cosigned by: [id number] Admin: 09/21/18 20:17 Dose: 35 units Documented by: [id number] Cosigned by: [id number] Admin: 09/21/18 08:42 Dose: 35 units Documented by: [id number] Cosigned by: [id number] Admin: 09/20/18 20:56 Dose: 35 units Documented by: [id number] Cosigned by: [id number] Admin: 09/20/18 08:57 Dose: 35 units Documented by: [id number] Cosigned by: [id number] Admin: 09/19/18 21:18 Dose: 35 units Documented by: [id number] Cosigned by: [id number] Lactobacillus Acidophilus (Floranex) 4 tab PO QIDM [facility] Stop: 10/19/18 11:59 Last Admin: 09/23/18 11:50 Dose: 4 tab Documented by: [id number] Admin: 09/23/18 07:45 Dose: 4 tab Documented by: [id number] Admin: 09/22/18 20:24 Dose: 4 tab Documented by: [id number] Admin: 09/22/18 17:52 Dose: 4 tab Documented by: [id number] Admin: 09/22/18 12:38 Dose: 4 tab Documented by: [id number] Admin: 09/22/18 07:56 Dose: 4 tab Documented by: [id number] Admin: 09/21/18 20:05 Dose: 4 tab Documented by: [id number] Admin: 09/21/18 17:09 Dose: 4 tab Documented by: [id number] Admin: 09/21/18 12:05 Dose: 4 tab Documented by: [id number] Admin: 09/21/18 08:44 Dose: 4 tab Documented by: [id number] Admin: 09/20/18 20:54 Dose: 4 tab Documented by: [id number] Admin: 09/20/18 16:49 Dose: 4 tab Documented by: [id number] Admin: 09/20/18 13:02 Dose: Not Given Documented by: [id number] Admin: 09/20/18 09:14 Dose: 4 tab Documented by: [id number] Admin: 09/19/18 21:16 Dose: 4 tab Documented by: [id number] Admin: 09/19/18 17:20 Dose: 4 tab Documented by: [id number] Admin: 09/19/18 12:33 Dose: 4 tab Documented by: [id number] Levothyroxine Sodium (Synthroid) 75 mcg PO DAILYBB MALIK Stop: 10/14/18 06:29 Last Admin: 09/23/18 05:31 Dose: 75 mcg Documented by: [id number] Admin: 09/22/18 05:21 Dose: 75 mcg Documented by: [id number] Admin: 09/21/18 06:26 Dose: 75 mcg Documented by: [id number] Admin: 09/20/18 05:54 Dose: 75 mcg Documented by: [id number] Admin: 09/19/18 06:49 Dose: 75 mcg Documented by: [id number] Admin: 09/18/18 05:28 Dose: 75 mcg Documented by: [id number] Admin: 09/17/18 06:37 Dose: 75 mcg Documented by: [id number] Admin: 09/16/18 05:59 Dose: 75 mcg Documented by: [id number] Admin: 09/15/18 06:38 Dose: 75 mcg Documented by: [id number] Admin: 09/14/18 06:29 Dose: 75 mcg Documented by: [id number] Metoprolol Succinate (Toprol Xl) 25 mg PO QPM MALIK Stop: 10/15/18 20:59 Last Admin: 09/22/18 20:24 Dose: 25 mg Documented by: [id number] Admin: 09/21/18 20:08 Dose: 25 mg Documented by: [id number] Admin: 09/20/18 20:57 Dose: 25 mg Documented by: [id number] Admin: 09/19/18 21:17 Dose: 25 mg Documented by: [id number] Admin: 09/18/18 23:47 Dose: 25 mg Documented by: [id number] Admin: 09/17/18 20:35 Dose: 25 mg Documented by: [id number] Admin: 09/16/18 20:34 Dose: 25 mg Documented by: [id number] Admin: 09/15/18 20:35 Dose: 25 mg Documented by: [id number] Morphine Sulfate (Morphine Sulfate) 3 mg IV Q2H PRN PRN Reason: Pain Stop: 09/24/18 20:08 Last Admin: 09/23/18 08:05 Dose: 3 mg Documented by: [id number] Admin: 09/23/18 02:27 Dose: 3 mg Documented by: [id number] Admin: 09/22/18 23:24 Dose: 3 mg Documented by: [id number] Admin: 09/22/18 17:57 Dose: 3 mg Documented by: [id number] Admin: 09/22/18 08:16 Dose: 3 mg Documented by: [id number] Admin: 09/22/18 01:05 Dose: 3 mg Documented by: [id number] Admin: 09/21/18 08:57 Dose: 3 mg Documented by: [id number] Admin: 09/20/18 13:11 Dose: 3 mg Documented by: [id number] Admin: 09/20/18 09:11 Dose: 3 mg Documented by: [id number] Admin: 09/19/18 15:42 Dose: 3 mg Documented by: [id number] Admin: 09/15/18 08:52 Dose: 3 mg Documented by: [id number] Admin: 09/14/18 08:25 Dose: 3 mg Documented by: [id number] Admin: 09/14/18 01:51 Dose: 3 mg Documented by: [id number] Admin: 09/12/18 08:56 Dose: 3 mg Documented by: [id number] Admin: 09/12/18 01:44 Dose: 3 mg Documented by: [id number] Admin: 09/11/18 13:18 Dose: 3 mg Documented by: [id number] Admin: 09/11/18 07:30 Dose: 3 mg Documented by: [id number] Admin: 09/11/18 04:24 Dose: 3 mg Documented by: [id number] Admin: 09/10/18 22:31 Dose: 3 mg Documented by: [id number] Vitamin D (Vitamin D3) 2,000 units PO MoWeFr@0900 MALIK Stop: 10/15/18 08:59 Last Admin: 09/22/18 08:02 Dose: 2,000 units Documented by: [id number] Admin: 09/19/18 08:46 Dose: 2,000 units Documented by: [id number] Admin: 09/17/18 08:08 Dose: 2,000 units Documented by: [id number] Admin: 09/15/18 08:48 Dose: 2,000 units Documented by: [id number] PG Care Time/CCT Total # of Minutes Spent Total Time Spent with Patient: Total time spent is greater than 50% in coordination of care (as documented) at patient's floor/unit and/or counseling patient: Resident Activity Tracking Resident Involvement: Resident Care Provided Care Provided: Adult Hospital Medicine (1) Pancreatitis Acute pancreatitis complication: unspecified Chronicity: acute Pancreatitis type: other Qualified Code(s): K85.80 - Other acute pancreatitis without necrosis or infection (2) Nausea & vomiting Vomiting Intractability: unspecified Vomiting type: unspecified Qualified Code(s): R11.2 - Nausea with vomiting, unspecified (3) Abdominal pain Abdominal location: unspecified location Qualified Code(s): R10.9 - Unspecified abdominal pain
[2018-09-23 06:55] LABS: Albumin Level 1.4 gm/dl (3.4-5.0); BUN Creatinine Ratio 39.9 (10-20); Calcium 8.9 mg/dl (8.5-10.1); Creatinine Clr Calc Pharmacy 20.8 ml/min; Est GFR (African American) 17.7; Est GFR (Non-African American) 15.3; Potassium 4.6 mmol/L (3.5-5.1)
[2018-09-23 06:58] LABS: Albumin Globulin Ratio 0.3 (0.9-2); Bilirubin,Total 0.3 mg/dl (0.2-1); Total Protein 5.4 gm/dl (6.4-8.2)
[2018-09-23 07:10] LABS: Basophils # (auto) 0.03 K/uL (0-0.2); Basophils % (auto) 0.3 %; Eosinophils # (auto) 0.43 K/uL (0-0.5); Eosinophils % (auto) 3.7 %; Immature Granulocytes # (auto) 0.21 K/uL (0.00-0.02); Immature Granulocytes % (auto) 1.8 %; Lymphocytes # (auto) 1.24 K/uL (1.2-3.4); Lymphocytes % (auto) 10.8 %; Monocytes % (auto) 4.4 %; Neutrophils # (auto) 9.07 K/uL (1.4-6.5)
[2018-09-23] MEDS: GEMFIBROZIL 600 MG TAB PO SCH (07:44)
[2018-09-23] MEDS: INSULIN GLARGINE SOLOSTAR 100 UNITS/ML 3 ML PEN SQ SCH ×2 (07:45→20:44)
[2018-09-23] MEDS: ASPIRIN 81 MG ECTAB PO SCH (07:45)
[2018-09-23] MEDS: OMEGA-3 (PURIFIED FISH OIL) 1 GM CAP PO SCH (07:45)
[2018-09-23] MEDS: LACTOBACILLUS ACIDOPHILUS (FLORANEX) TAB PO SCH ×4 (07:45→20:44)
[2018-09-23] MEDS: HEPARIN SOD 5,000 UNIT/0.5 ML VIAL SQ SCH ×2 (07:46→20:44)
[2018-09-23] MEDS: DICLOFENAC SOD 1% GEL 100 GM TUBE EXT SCH ×4 (07:48→21:00)
[2018-09-23] MEDS: INSULIN ASPART 100 UNITS/ML 3 ML PEN SC SCH ×4 (07:50→20:45)
--- NOTE | 2018-09-23 08:25 | Surgery Progress Note ---
Date of Service September 23, 2018 Assessment & Plan (1) Pancreatitis: 83 yo female with gallstone pancreatitis. Repeat CT scan on 09/20/18 showed worsening pancreatitis. Will eventually need a cholecystectomy, but will need to wait for inflammation from significant pancreatitis to improve. Surgical timing to be determined. While ideally surgery is performed during the same hospitalization, given the severity of the pancreatitis may need to wait a prolonged period prior to intervening surgically, especially since no signs of acute cholecystitis. Highly likely that she will end up needing recovery period and return for elective cholecystectomy. LISA on chronic kidney disease -baseline creatinine 1.7-2.0 - 2.77 today - third spacing of fluid with body wall anasarca - bilateral lower extremity edema Concern for hospital acquired pneumonia -+productive cough -Leukocytosis continues to improve 11K today - now on IV Levaquin Gallbladder distended on CT scan and some inflammatory change however this could be secondary to pancreatitis and fluid overload. No abdominal pain, wbc continues to improve. LFTS wnl other than mild increase in AST. Unlikely acute cholecystitis. - Continue conservative management - Advance diet as tolerating, BOOST supplementation TID given low albumin - incentive spirometry 10x/hour - Defer Renee management to hospitalist and nephrology, okay to remove renee from surgical standpoint - NEEDS TO WORK ON STRENGTH/PT, HAS NOT BEEN OUT OF BED, IF UNABLE TO BE OOB MUST BE IN SEATED POSITION IN CHAIR AND WORK ON MOVING EXTREMITIES THROUGHOUT THE DAY Dr. Morales has seen and examined pt, agrees with above. Supervising Physician Co-Signing Physician Notes I interviewed and examined this patient and I agree with the above note. There is no present evidence of cholecystitis. I do not feel that there is any need for surgical intervention at this time. Subjective having pain, when asked where she states her lower legs. no abdominal pain tolerating diet so far no n/v Physical Exam Constitutional: + morbidly obese; no acute distress and not ill appearing Respiratory: normal respiratory effort; no respiratory distress, no labored breathing and no retractions Gastrointestinal (Abdomen): Inspection/Auscultation: abdomen normal to inspection; abdomen not distended Percussion/Palpation: abdomen soft; abdomen nontender, no guarding and abdomen not rigid Musculoskeletal: Bilateral lower extremity swelling, there is venous insuffiency wounds of the left lower extremity. Pitting edema + 2 edema of the bilateral upper extremity Skin: no rashes, warm and dry Psychiatric: Orientation: alert and oriented x 3 Affect: + depressed affect Results & Data Vital Signs (Past 12 Hours) Vital Signs Temp Pulse Pulse Resp BP Pulse Ox 09/23/18 06:55 36.4 C L 74 18 138/67 97 09/23/18 04:07 36.6 C 82 18 95/59 L 97 09/23/18 00:24 87 09/22/18 23:32 37.1 C 84 16 122/68 97 Laboratory Results 09/23/18 09/23/18 09/23/18 Range/Units 07:16 05:58 05:58 WBC (4.8-10.8) K/uL RBC (4.2-5.4) M/uL Hgb (12.0-16.0) g/dL Hct (37-47) % MCV (80-100) fL MCH (25-34) pg MCHC (32-36) g/dL RDW Std Deviation (36.4-46.3) fL RDW Coeff of Brian (11.5-14.5) % Plt Count (130-400) K/uL MPV (7.4-10.4) fL Immature Gran % (Auto) % Neut % (Auto) % Lymph % (Auto) % [place] % (Auto) % Eos % (Auto) % Baso % (Auto) % Immature Gran # (Auto) (0.00-0.02) K/uL Neut # (Auto) (1.4-6.5) K/uL Lymph # (Auto) (1.2-3.4) K/uL [place] # (Auto) (0.11-0.59) K/uL Eos # (Auto) (0-0.5) K/uL Baso # (Auto) (0-0.2) K/uL Sodium 139 (136-145) mmol/L Potassium 4.6 (3.5-5.1) mmol/L Chloride 109 H (98-107) mmol/L Carbon Dioxide 19 L (21-32) mmol/L Anion Gap 11.0 (3-11) BUN 111 H (7-18) mg/dl Creatinine 2.77 H (0.6-1.2) mg/dl Est Cr Clr Drug Dosing 20.8 ml/min Est GFR ( Amer) 17.7 Est GFR (Non-Af Amer) 15.3 BUN/Creatinine Ratio 39.9 H (10-20) Glucose 78 (70-99) mg/dl POC Glucose 86 (70-99) Calcium 8.9 (8.5-10.1) mg/dl Total Bilirubin 0.3 (0.2-1) mg/dl AST 73 H (15-37) U/L ALT 25 (12-78) U/L Alkaline Phosphatase 106 (45-117) U/L Total Protein 5.4 L (6.4-8.2) gm/dl Albumin 1.4 L (3.4-5.0) gm/dl Globulin 4.0 (2.5-4.0) gm/dl Albumin/Globulin Ratio 0.3 L (0.9-2) Urine Color Urine Appearance (Clear) Urine pH (4.5-7.5) Ur Specific [place] (1.000-1.030) Urine Protein (Negative) Urine Glucose (UA) (Negative) Urine Ketones (Negative) Urine Blood (Negative) Urine Nitrite (Negative) Urine Bilirubin (Negative) Urine Urobilinogen (Negative) Ur Leukocyte Esterase (Negative) Urine RBC (0-4) /hpf Urine WBC (0-5) /hpf Ur Epithelial Cells (0-5) /lpf Urine Bacteria (Negative) Hyaline Casts (0-5) /lpf Granular Casts (0) /lpf Ur Random Sodium mmol/L Random Vancomycin 20.0 mcg/ml 09/23/18 09/22/18 09/22/18 Range/Units 05:58 20:25 16:40 WBC 11.48 H (4.8-10.8) K/uL RBC 2.78 L (4.2-5.4) M/uL Hgb 8.5 L (12.0-16.0) g/dL Hct 25.9 L (37-47) % MCV 93.2 (80-100) fL MCH 30.6 (25-34) pg MCHC 32.8 (32-36) g/dL RDW Std Deviation 48.2 H (36.4-46.3) fL RDW Coeff of Brian 14.1 (11.5-14.5) % Plt Count 297 (130-400) K/uL MPV 10.1 (7.4-10.4) fL Immature Gran % (Auto) 1.8 % Neut % (Auto) 79.0 % Lymph % (Auto) 10.8 % [place] % (Auto) 4.4 % Eos % (Auto) 3.7 % Baso % (Auto) 0.3 % Immature Gran # (Auto) 0.21 H (0.00-0.02) K/uL Neut # (Auto) 9.07 H (1.4-6.5) K/uL Lymph # (Auto) 1.24 (1.2-3.4) K/uL [place] # (Auto) 0.50 (0.11-0.59) K/uL Eos # (Auto) 0.43 (0-0.5) K/uL Baso # (Auto) 0.03 (0-0.2) K/uL Sodium (136-145) mmol/L Potassium (3.5-5.1) mmol/L Chloride (98-107) mmol/L Carbon Dioxide (21-32) mmol/L Anion Gap (3-11) BUN (7-18) mg/dl Creatinine (0.6-1.2) mg/dl Est Cr Clr Drug Dosing ml/min Est GFR ( Amer) Est GFR (Non-Af Amer) BUN/Creatinine Ratio (10-20) Glucose (70-99) mg/dl POC Glucose 108 H (70-99) Calcium (8.5-10.1) mg/dl Total Bilirubin (0.2-1) mg/dl AST (15-37) U/L ALT (12-78) U/L Alkaline Phosphatase (45-117) U/L Total Protein (6.4-8.2) gm/dl Albumin (3.4-5.0) gm/dl Globulin (2.5-4.0) gm/dl Albumin/Globulin Ratio (0.9-2) Urine Color Urine Appearance (Clear) Urine pH (4.5-7.5) Ur Specific [place] (1.000-1.030) Urine Protein (Negative) Urine Glucose (UA) (Negative) Urine Ketones (Negative) Urine Blood (Negative) Urine Nitrite (Negative) Urine Bilirubin (Negative) Urine Urobilinogen (Negative) Ur Leukocyte Esterase (Negative) Urine RBC (0-4) /hpf Urine WBC (0-5) /hpf Ur Epithelial Cells (0-5) /lpf Urine Bacteria (Negative) Hyaline Casts (0-5) /lpf Granular Casts (0) /lpf Ur Random Sodium 25 mmol/L Random Vancomycin mcg/ml 09/22/18 09/22/18 09/22/18 Range/Units 16:40 16:33 11:24 WBC (4.8-10.8) K/uL RBC (4.2-5.4) M/uL Hgb (12.0-16.0) g/dL Hct (37-47) % MCV (80-100) fL MCH (25-34) pg MCHC (32-36) g/dL RDW Std Deviation (36.4-46.3) fL RDW Coeff of Brian (11.5-14.5) % Plt Count (130-400) K/uL MPV (7.4-10.4) fL Immature Gran % (Auto) % Neut % (Auto) % Lymph % (Auto) % [place] % (Auto) % Eos % (Auto) % Baso % (Auto) % Immature Gran # (Auto) (0.00-0.02) K/uL Neut # (Auto) (1.4-6.5) K/uL Lymph # (Auto) (1.2-3.4) K/uL [place] # (Auto) (0.11-0.59) K/uL Eos # (Auto) (0-0.5) K/uL Baso # (Auto) (0-0.2) K/uL Sodium (136-145) mmol/L Potassium (3.5-5.1) mmol/L Chloride (98-107) mmol/L Carbon Dioxide (21-32) mmol/L Anion Gap (3-11) BUN (7-18) mg/dl Creatinine (0.6-1.2) mg/dl Est Cr Clr Drug Dosing ml/min Est GFR ( Amer) Est GFR (Non-Af Amer) BUN/Creatinine Ratio (10-20) Glucose (70-99) mg/dl POC Glucose 121 H 189 H (70-99) Calcium (8.5-10.1) mg/dl Total Bilirubin (0.2-1) mg/dl AST (15-37) U/L ALT (12-78) U/L Alkaline Phosphatase (45-117) U/L Total Protein (6.4-8.2) gm/dl Albumin (3.4-5.0) gm/dl Globulin (2.5-4.0) gm/dl Albumin/Globulin Ratio (0.9-2) Urine Color Yellow Urine Appearance Cloudy A (Clear) Urine pH 5.0 (4.5-7.5) Ur Specific [place] 1.015 (1.000-1.030) Urine Protein Negative (Negative) Urine Glucose (UA) Negative (Negative) Urine Ketones Negative (Negative) Urine Blood 2+ H (Negative) Urine Nitrite Negative (Negative) Urine Bilirubin Negative (Negative) Urine Urobilinogen Negative (Negative) Ur Leukocyte Esterase 1+ H (Negative) Urine RBC >30 H (0-4) /hpf Urine WBC >30 H (0-5) /hpf Ur Epithelial Cells >30 H (0-5) /lpf Urine Bacteria 2+ H (Negative) Hyaline Casts 0-5 (0-5) /lpf Granular Casts 5-10 H (0) /lpf Ur Random Sodium mmol/L Random Vancomycin mcg/ml 09/22/18 Range/Units 09:27 WBC (4.8-10.8) K/uL RBC (4.2-5.4) M/uL Hgb (12.0-16.0) g/dL Hct (37-47) % MCV (80-100) fL MCH (25-34) pg MCHC (32-36) g/dL RDW Std Deviation (36.4-46.3) fL RDW Coeff of Brian (11.5-14.5) % Plt Count (130-400) K/uL MPV (7.4-10.4) fL Immature Gran % (Auto) % Neut % (Auto) % Lymph % (Auto) % [place] % (Auto) % Eos % (Auto) % Baso % (Auto) % Immature Gran # (Auto) (0.00-0.02) K/uL Neut # (Auto) (1.4-6.5) K/uL Lymph # (Auto) (1.2-3.4) K/uL [place] # (Auto) (0.11-0.59) K/uL Eos # (Auto) (0-0.5) K/uL Baso # (Auto) (0-0.2) K/uL Sodium (136-145) mmol/L Potassium (3.5-5.1) mmol/L Chloride (98-107) mmol/L Carbon Dioxide (21-32) mmol/L Anion Gap (3-11) BUN (7-18) mg/dl Creatinine 3.04 H (0.6-1.2) mg/dl Est Cr Clr Drug Dosing 18.6 ml/min Est GFR ( Amer) 15.8 Est GFR (Non-Af Amer) 13.7 BUN/Creatinine Ratio (10-20) Glucose (70-99) mg/dl POC Glucose (70-99) Calcium (8.5-10.1) mg/dl Total Bilirubin (0.2-1) mg/dl AST (15-37) U/L ALT (12-78) U/L Alkaline Phosphatase (45-117) U/L Total Protein (6.4-8.2) gm/dl Albumin (3.4-5.0) gm/dl Globulin (2.5-4.0) gm/dl Albumin/Globulin Ratio (0.9-2) Urine Color Urine Appearance (Clear) Urine pH (4.5-7.5) Ur Specific [place] (1.000-1.030) Urine Protein (Negative) Urine Glucose (UA) (Negative) Urine Ketones (Negative) Urine Blood (Negative) Urine Nitrite (Negative) Urine Bilirubin (Negative) Urine Urobilinogen (Negative) Ur Leukocyte Esterase (Negative) Urine RBC (0-4) /hpf Urine WBC (0-5) /hpf Ur Epithelial Cells (0-5) /lpf Urine Bacteria (Negative) Hyaline Casts (0-5) /lpf Granular Casts (0) /lpf Ur Random Sodium mmol/L Random Vancomycin mcg/ml Diagnostic Findings CT abd pelvis oral con only CLINICAL HISTORY: 83 years-old Female presenting with pancreatitis, no improvement, WBC elevated, day 10. TECHNIQUE: Multidetector CT of the abdomen and pelvis was performed after the administration of oral contrast only. IV contrast: None. One or more dose lowering techniques were used consistent with the principles of ALARA (as low as reasonably achievable), including automatic exposure control, mA or kV adjustment to individual patient size, and/or use of iterative reconstruction. COMPARISON: 09/14/2018 and 09/10/2018. CT DOSE (mGy.cm): The estimated cumulative dose is 1521.30 mGy.cm. FINDINGS: Uptwist Spinner topogram: Unremarkable. Lung bases: Borderline enlarged heart size. Coronary artery calcification. Small bilateral pleural effusions as on prior exam. Dependent consolidation volume loss in the lower lobes as on prior exam likely passive atelectasis. Liver: Normal morphology. Normal density. Biliary: No gross biliary ductal dilatation allowing for noncontrast technique. Gallbladder is distended. No radiodense gallstones. Pancreas: Enlargement of the pancreas with diffuse parenchymal and peripancreatic fat stranding and fluid. Fluid is again noted along the pancreatic tail tracking to the inferior pole of the spleen. This measures up to 7 cm in diameter. This is stable to slightly enlarged from prior. This does not appear to be well encapsulated. Inflammatory change also tracks into the transverse mesocolon as on prior exam. Retroperitoneal extension of inflammatory change in the anterior pararenal spaces. Spleen: Normal noncontrast appearance. Perisplenic fluid as mentioned. Adrenal glands: Normal noncontrast appearance. Kidneys and ureters: Bilaterally atrophic kidneys with nonspecific moderate perinephric fat infiltration. No nephrolithiasis or hydronephrosis. Ureters nondistended. Bladder: Decompressed with a Renee catheter. Pelvic organs: Normal noncontrast appearance. Bowel: Possible rectal descent with pelvic floor laxity. The colon is normal without evidence of wall thickening. Normal appendix. No bowel obstruction. Mild wall thickening of the duodenal bulb suggested with periduodenal fat infilt ration as on prior exam. Oral contrast has transited to the distal small bowel. No small bowel wall thickening is apparent. Peritoneal cavity: Small to moderate volume ascites in the paracolic gutters and pelvis, which is slightly increased in volume from prior. No free intraperitoneal gas. Lymph nodes: No gross lymphadenopathy allowing for noncontrast technique. Vasculature: Atherosclerosis of the normal caliber abdominal aorta. Abdominal wall: Diffuse body wall edema, which has worsened from prior exam. Right mastectomy may be present. Musculoskeletal: Severe degenerative changes of the left hip as on prior exam. Degenerative changes of the spine. IMPRESSION: 1. Overall similar appearance of the severe pancreatitis. Evaluation for necrosis is significantly limited in the absence of intravenous contrast. No gross evidence of a pancreatic parenchymal fluid collection to suggest necrosis at this time. Acute peripancreatic fluid collection along the tail tracking to the spleen stable to slightly increased in size from prior. Extension of inflammatory change in the retroperitoneum also stable from prior. 2. Gallbladder distention likely a secondary result of inflammatory change and lack of bile clearance. If there is clinical concern for acute or chronic cholecystitis, HIDA scan may be beneficial. 3. Slight increased volume of the small to moderate ascites. 4. Worsened body wall edema. 5. Persistent small bilateral pleural effusions and passive atelectasis in the lower lobes. (1) Pancreatitis Acute pancreatitis complication: unspecified Chronicity: acute Pancreatitis type: other Qualified Code(s): K85.80 - Other acute pancreatitis without necrosis or infection
[2018-09-23] MEDS ORDERED: VANCOMYCIN HCL 750 MG in SODIUM CHLORIDE 0.9% 250 ML IV ONE (10:00)
[2018-09-23] MEDS ORDERED: FUROSEMIDE 40 MG in SYRINGE 0 ML IV ONE (10:30)
--- NOTE | 2018-09-23 10:32 | Nephrology Progress Note ---
Date of Service September 23, 2018 Assessment & Plan (1) Acute kidney injury: LISA related to inflammation and intravascular volume contraction associated w/ pancreatitis. Patient has profound hypoalbuminemia and 3rd spacing of volume. Creatinine plate -- Patient w/ 3rd spacing of volume due to pancreatic inflammation and low serum albumin -- Urine studies reviewed yesterday with evidence of persistent ATN -- Will provide 40 mg IV furosemide to help mobilize some fluid -- Goal is to encourage even to slightly negative fluid balance -- Monitor volume status, UO and PRP -- Bhatt may be discontinued -- BP is acceptable -- 09/[address] reviewed. Inflammation of pancreas and retroperitoneal space essentially unchanged. Rising creatinine & 3rd spacing of volume is concerning for ongoing inflammation (2) Chronic kidney disease, stage IV (severe): -- Baseline creatinine ~ 1.7 - 2.0 (3) Pancreatitis: (4) Cholelithiasis: -- Surgery following, plan cholecystectomy once acute inflammation from pancreatitis has resolved (5) Hypertension: -- BP acceptable (6) Diabetes mellitus: (7) Cellulitis of left lower extremity: -- On IV Vanco & Imipenem as per primary service Subjective No acute events overnight. Dana was very tired this morning. She continues to answer questions with only a few simple words. Appetite is fair. She did not endorse significant abdominal pain. Generalized discomfort continues to be a limiting factor to her activities. Review of Systems Review of Systems: All systems reviewed & are unremarkable except as noted in HPI & below Physical Exam Constitutional: + ill appearing and + obese Eyes: PERRL, conjunctivae normal, anicteric sclerae ENMT: Mouth: no oral mucosal abnormality and oral mucous membranes not dry Neck: trachea midline, no thyromegaly Respiratory: normal respiratory effort, lungs clear to auscultation no respiratory distress Cardiovascular: Heart Sounds: normal S1 and normal S2 Extremities: + edema Gastrointestinal (Abdomen): Inspection/Auscultation: + abdomen distended and + hypoactive bowel sounds Percussion/Palpation: + abdomen tender; no guarding Musculoskeletal: Extremities: no cyanosis and no clubbing Skin: + turgor decreased and + erythema (LLE) Neurologic: Motor/Sensory: no tremor and no asterixis Genitourinary: Bhatt draining clear yellow urine Results & Data Vital Signs (Past 12 Hours) Vital Signs Temp Pulse Pulse Resp BP Pulse Ox 09/23/18 09:38 87 09/23/18 06:55 36.4 C L 74 18 138/67 97 09/23/18 04:07 36.6 C 82 18 95/59 L 97 09/23/18 00:24 87 09/22/18 23:32 37.1 C 84 16 122/68 97 Laboratory Results Laboratory Results - last 24 hr 09/22/18 09/22/18 09/22/18 09:27 11:24 16:33 WBC RBC Hgb Hct MCV MCH MCHC RDW Std Deviation RDW Coeff of Brian Plt Count MPV Immature Gran % (Auto) Neut % (Auto) Lymph % (Auto) [place] % (Auto) Eos % (Auto) Baso % (Auto) Immature Gran # (Auto) Neut # (Auto) Lymph # (Auto) [place] # (Auto) Eos # (Auto) Baso # (Auto) Sodium Potassium Chloride Carbon Dioxide Anion Gap BUN Creatinine 3.04 H Est Cr Clr Drug Dosing 18.6 Est GFR ( Amer) 15.8 Est GFR (Non-Af Amer) 13.7 BUN/Creatinine Ratio Glucose POC Glucose 189 H 121 H Calcium Total Bilirubin AST ALT Alkaline Phosphatase Total Protein Albumin Globulin Albumin/Globulin Ratio Urine Color Urine Appearance Urine pH Ur Specific [place] Urine Protein Urine Glucose (UA) Urine Ketones Urine Blood Urine Nitrite Urine Bilirubin Urine Urobilinogen Ur Leukocyte Esterase Urine RBC Urine WBC Ur Epithelial Cells Urine Bacteria Hyaline Casts Granular Casts Ur Random Sodium Random Vancomycin 09/22/18 09/22/18 09/22/18 16:40 16:40 20:25 WBC RBC Hgb Hct MCV MCH MCHC RDW Std Deviation RDW Coeff of Brian Plt Count MPV Immature Gran % (Auto) Neut % (Auto) Lymph % (Auto) [place] % (Auto) Eos % (Auto) Baso % (Auto) Immature Gran # (Auto) Neut # (Auto) Lymph # (Auto) [place] # (Auto) Eos # (Auto) Baso # (Auto) Sodium Potassium Chloride Carbon Dioxide Anion Gap BUN Creatinine Est Cr Clr Drug Dosing Est GFR ( Amer) Est GFR (Non-Af Amer) BUN/Creatinine Ratio Glucose POC Glucose 108 H Calcium Total Bilirubin AST ALT Alkaline Phosphatase Total Protein Albumin Globulin Albumin/Globulin Ratio Urine Color Yellow Urine Appearance Cloudy A Urine pH 5.0 Ur Specific [place] 1.015 Urine Protein Negative Urine Glucose (UA) Negative Urine Ketones Negative Urine Blood 2+ H Urine Nitrite Negative Urine Bilirubin Negative Urine Urobilinogen Negative Ur Leukocyte Esterase 1+ H Urine RBC >30 H Urine WBC >30 H Ur Epithelial Cells >30 H Urine Bacteria 2+ H Hyaline Casts 0-5 Granular Casts 5-10 H Ur Random Sodium 25 Random Vancomycin 09/23/18 09/23/18 09/23/18 05:58 05:58 05:58 WBC 11.48 H RBC 2.78 L Hgb 8.5 L Hct 25.9 L MCV 93.2 MCH 30.6 MCHC 32.8 RDW Std Deviation 48.2 H RDW Coeff of Brian 14.1 Plt Count 297 MPV 10.1 Immature Gran % (Auto) 1.8 Neut % (Auto) 79.0 Lymph % (Auto) 10.8 [place] % (Auto) 4.4 Eos % (Auto) 3.7 Baso % (Auto) 0.3 Immature Gran # (Auto) 0.21 H Neut # (Auto) 9.07 H Lymph # (Auto) 1.24 [place] # (Auto) 0.50 Eos # (Auto) 0.43 Baso # (Auto) 0.03 Sodium 139 Potassium 4.6 Chloride 109 H Carbon Dioxide 19 L Anion Gap 11.0 BUN 111 H Creatinine 2.77 H Est Cr Clr Drug Dosing 20.8 Est GFR ( Amer) 17.7 Est GFR (Non-Af Amer) 15.3 BUN/Creatinine Ratio 39.9 H Glucose 78 POC Glucose Calcium 8.9 Total Bilirubin 0.3 AST 73 H ALT 25 Alkaline Phosphatase 106 Total Protein 5.4 L Albumin 1.4 L Globulin 4.0 Albumin/Globulin Ratio 0.3 L Urine Color Urine Appearance Urine pH Ur Specific [place] Urine Protein Urine Glucose (UA) Urine Ketones Urine Blood Urine Nitrite Urine Bilirubin Urine Urobilinogen Ur Leukocyte Esterase Urine RBC Urine WBC Ur Epithelial Cells Urine Bacteria Hyaline Casts Granular Casts Ur Random Sodium Random Vancomycin 20.0 09/23/18 07:16 WBC RBC Hgb Hct MCV MCH MCHC RDW Std Deviation RDW Coeff of Brian Plt Count MPV Immature Gran % (Auto) Neut % (Auto) Lymph % (Auto) [place] % (Auto) Eos % (Auto) Baso % (Auto) Immature Gran # (Auto) Neut # (Auto) Lymph # (Auto) [place] # (Auto) Eos # (Auto) Baso # (Auto) Sodium Potassium Chloride Carbon Dioxide Anion Gap BUN Creatinine Est Cr Clr Drug Dosing Est GFR ( Amer) Est GFR (Non-Af Amer) BUN/Creatinine Ratio Glucose POC Glucose 86 Calcium Total Bilirubin AST ALT Alkaline Phosphatase Total Protein Albumin Globulin Albumin/Globulin Ratio Urine Color Urine Appearance Urine pH Ur Specific [place] Urine Protein Urine Glucose (UA) Urine Ketones Urine Blood Urine Nitrite Urine Bilirubin Urine Urobilinogen Ur Leukocyte Esterase Urine RBC Urine WBC Ur Epithelial Cells Urine Bacteria Hyaline Casts Granular Casts Ur Random Sodium Random Vancomycin (1) Pancreatitis Acute pancreatitis complication: unspecified Chronicity: acute Pancreatitis type: other Qualified Code(s): K85.80 - Other acute pancreatitis without necrosis or infection
--- NOTE | 2018-09-23 13:22 | Pharmacy Report ---
Pharmacy Abx Dose Short Note - Date of Service September 23, 2018 - Assessment & Plan Assessment * 83 year old F receiving ertapenem and vancomycin for treatment of pancreatitis, cholecystitis, and probable left lower extremity cellulitis * WBC trending down, but still elevated. * SCr still with significant elevation, although trended down very slightly today Vancomycin * Goal vancomycin trough 15-20 mcg/mL * Random level of 20.0 mcg/mL this AM is therapeutic * Will repeat same dose of vancomycin as yesterday (as level remained stable with this dose from 09/22 to 09/23) * Will continue to dose vancomycin by level 2nd ongoing renal dysfunction Plan * Vancomycin 750 mg IV x1 today * Random level in AM Pharmacy will continue to follow and will adjust dose/frequency as necessary. Thank you.
[2018-09-23] MEDS: ERTAPENEM SODIUM 500 MG in SODIUM CHLORIDE 0.9% 50 ML IV SCH (14:28)
--- NOTE | 2018-09-23 19:25 | Infectious Disease Progress Nt ---
Date of Service September 23, 2018 Assessment & Plan (1) Pancreatitis: Patient with acute pancreatitis, cholecystitis, and probable left lower extremity cellulitis with persistent fevers and leukocytosis. Appears to be now improving. Will continue on ertapenem for another 24 to 48 hours. (2) Cellulitis of left lower extremity: Subjective Dana had no acute events overnight. She continues to endorse bilateral leg pain but no worsening shortness of breath or chest pain, nausea, vomiting, diarrhea. She tolerated breakfast. She notes feeling sleepy and only able to provide simple answers and does not expand or is very conversative. Review of Systems Review of Systems: All systems reviewed & are unremarkable except as noted in HPI & below Physical Exam Constitutional: WD/WN, vitals as above + morbidly obese and comfortable; no acute distress Eyes: PERRL, conjunctivae normal, anicteric sclerae ENMT: external ear and nose normal, oropharynx normal Neck: trachea midline, no thyromegaly neck nontender Respiratory: normal respiratory effort, lungs clear to auscultation normal percussion; does not use accessory muscles Cardiovascular: Rate/Rhythm: regular rate and regular rhythm Heart Sounds: normal S1 and normal S2; no gallop, no murmur and no cardiac rub Vessels: normal peripheral pulses; no JVD Gastrointestinal (Abdomen): normal bowel sounds, soft, nontender, no hepatosplenomegaly Inspection/Auscultation: + abdomen distended Percussion/Palpation: no abdominal mass Musculoskeletal: no cyanosis or clubbing, extremities motor strength 5/5 Spine: thoracic spine normal to inspection and lumbar spine normal to inspection; no cervical spinal tenderness Skin: normal turgor and + lesion Neurologic: patellar DTR's 2+ bilat, sensation intact no focal motor deficits Psychiatric: A+Ox3, euthymic affect Orientation: cooperative Lymphatic: no cervical or axillary lymphadenopathy no inguinal lymphadenopathy Results & Data Vital Signs (Past 12 Hours) Vital Signs Temp Pulse Pulse Resp BP Pulse Ox 09/23/18 15:43 36.8 C 82 18 115/64 91 09/23/18 11:25 36.8 C 73 20 141/67 H 98 09/23/18 09:38 87 Laboratory Results Short CBC 09/23/18 Range/Units 05:58 WBC 11.48 H (4.8-10.8) K/uL Hgb 8.5 L (12.0-16.0) g/dL Hct 25.9 L (37-47) % Plt Count 297 (130-400) K/uL BMP 09/23/18 05:58 Sodium 139 Potassium 4.6 Chloride 109 H Carbon Dioxide 19 L BUN 111 H Creatinine 2.77 H Glucose 78 Calcium 8.9 Liver Function 09/23/18 Range/Units 05:58 Total Bilirubin 0.3 (0.2-1) mg/dl AST 73 H (15-37) U/L ALT 25 (12-78) U/L Alkaline Phosphatase 106 (45-117) U/L Albumin 1.4 L (3.4-5.0) gm/dl Diagnostic Findings Microbiology 09/22/18 16:40 Urine,Clean Catch Urine Culture - Preliminary No growth - Less than 1,000 colonies/mL, Final report to follow. 09/20/18 08:24 Blood Aerobic Blood Culture - Preliminary No growth in Aerobic bottle after 48 hours. 09/20/18 08:24 Blood Anaerobic Blood Culture - Final 09/20/18 08:23 Blood Aerobic Blood Culture - Preliminary No growth in Aerobic bottle after 48 hours. 09/20/18 08:23 Blood Anaerobic Blood Culture - Preliminary No growth in Anaerobic bottle after 48 hours. 09/16/18 12:13 Blood Aerobic Blood Culture - Final No growth in Aerobic bottle after 5 days. 09/16/18 12:13 Blood Anaerobic Blood Culture - Final 09/16/18 12:04 Blood Aerobic Blood Culture - Final No growth in Aerobic bottle after 5 days. 09/16/18 12:04 Blood Anaerobic Blood Culture - Final 09/19/18 14:45 Urine,Indwelling Cath Urine Culture - Final No growth - less than 1,000 colonies/mL. 09/14/18 15:36 Blood Aerobic Blood Culture - Final No growth in Aerobic bottle after 5 days. 09/14/18 15:36 Blood Anaerobic Blood Culture - Final No growth in Anaerobic bottle after 5 days. 09/14/18 15:27 Blood Aerobic Blood Culture - Final No growth in Aerobic bottle after 5 days. 09/14/18 15:27 Blood Anaerobic Blood Culture - Final No growth in Anaerobic bottle after 5 days. 09/14/18 Unknown Urine,Indwelling Cath Urine Culture - Final No growth - less than 1,000 colonies/mL. CT abd pelvis oral con only CLINICAL HISTORY: 83 years-old Female presenting with pancreatitis, no improvement, WBC elevated, day 10. TECHNIQUE: Multidetector CT of the abdomen and pelvis was performed after the administration of oral contrast only. IV contrast: None. One or more dose lowering techniques were used consistent with the principles of ALARA (as low as reasonably achievable), including automatic exposure control, mA or kV adjustment to individual patient size, and/or use of iterative reconstruction. COMPARISON: 09/14/2018 and 09/10/2018. CT DOSE (mGy.cm): The estimated cumulative dose is 1521.30 mGy.cm. FINDINGS: Contact Clerk topogram: Unremarkable. Lung bases: Borderline enlarged heart size. Coronary artery calcification. Small bilateral pleural effusions as on prior exam. Dependent consolidation volume loss in the lower lobes as on prior exam likely passive atelectasis. Liver: Normal morphology. Normal density. Biliary: No gross biliary ductal dilatation allowing for noncontrast technique. Gallbladder is distended. No radiodense gallstones. Pancreas: Enlargement of the pancreas with diffuse parenchymal and peripancreatic fat stranding and fluid. Fluid is again noted along the pancreatic tail tracking to the inferior pole of the spleen. This measures up to 7 cm in diameter. This is stable to slightly enlarged from prior. This does not appear to be well encapsulated. Inflammatory change also tracks into the transverse mesocolon as on prior exam. Retroperitoneal extension of inflammatory change in the anterior pararenal spaces. Spleen: Normal noncontrast appearance. Perisplenic fluid as mentioned. Adrenal glands: Normal noncontrast appearance. Kidneys and ureters: Bilaterally atrophic kidneys with nonspecific moderate perinephric fat infiltration. No nephrolithiasis or hydronephrosis. Ureters nondistended. Bladder: Decompressed with a Bhatt catheter. Pelvic organs: Normal noncontrast appearance. Bowel: Possible rectal descent with pelvic floor laxity. The colon is normal without evidence of wall thickening. Normal appendix. No bowel obstruction. Mild wall thickening of the duodenal bulb suggested with periduodenal fat infiltration as on prior exam. Oral contrast has transited to the distal small bowel. No small bowel wall thickening is apparent. Peritoneal cavity: Small to moderate volume ascites in the paracolic gutters and pelvis, which is slightly increased in volume from prior. No free intraperitoneal gas. Lymph nodes: No gross lymphadenopathy allowing for noncontrast technique. Vasculature: Atherosclerosis of the normal caliber abdominal aorta. Abdominal wall: Diffuse body wall edema, which has worsened from prior exam. Right mastectomy may be present. Musculoskeletal: Severe degenerative changes of the left hip as on prior exam. Degenerative changes of the spine. IMPRESSION: 1. Overall similar appearance of the severe pancreatitis. Evaluation for necrosis is significantly limited in the absence of intravenous contrast. No gross evidence of a pancreatic parenchymal fluid collection to suggest necrosis at this time. Acute peripancreatic fluid collection along the tail tracking to the spleen stable to slightly increased in size from prior. Extension of inflammatory change in the retroperitoneum also stable from prior. 2. Gallbladder distention likely a secondary result of inflammatory change and lack of bile clearance. If there is clinical concern for acute or chronic cholecystitis, HIDA scan may be beneficial. 3. Slight increased volume of the small to moderate ascites. 4. Worsened body wall edema. 5. Persistent small bilateral pleural effusions and passive atelectasis in the lower lobes. Electronically signed by: Gio Cotter M.D. 09/20/2018 2:01 PM Dictated: 09/20/18 1351 (1) Pancreatitis Acute pancreatitis complication: unspecified Chronicity: acute Pancreatitis type: other Qualified Code(s): K85.80 - Other acute pancreatitis without necrosis or infection
[2018-09-23] MEDS: METOPROLOL SUCC 25MG EXT REL TAB PO SCH (20:44)
[2018-09-23] MEDS: ACETAMINOPHEN 65 ML IV PRN (20:55)
[2018-09-24 05:36] LABS: Hematocrit (blood only) 25.7 % (37-47); Hemoglobin 8.5 g/dL (12.0-16.0); Mean Corpuscular Hgb Conc 33.1 g/dL (32-36); Mean Corpuscular Volume 92.1 fL (80-100); Platelet Count 274 K/uL (130-400); RDW Coefficient of Variation 14.1 % (11.5-14.5); Red Blood Count 2.79 M/uL (4.2-5.4); White Blood Count 7.99 K/uL (4.8-10.8)
[2018-09-24] MEDS: LEVOTHYROXINE SODIUM 75 MCG TABLET PO SCH (05:43)
[2018-09-24 05:58] LABS: Basophils # (auto) 0.02 K/uL (0-0.2); Basophils % (auto) 0.3 %; Eosinophils % (auto) 3.8 %; Immature Granulocytes # (auto) 0.18 K/uL (0.00-0.02); Immature Granulocytes % (auto) 2.3 %; Lymphocytes # (auto) 1.21 K/uL (1.2-3.4); Lymphocytes % (auto) 15.1 %; Monocytes # (auto) 0.43 K/uL (0.11-0.59); Monocytes % (auto) 5.4 %; Neutrophils # (auto) 5.85 K/uL (1.4-6.5); Neutrophils % (auto) 73.1 %; RBC Morphology Unremarkable
[2018-09-24 06:08] LABS: Albumin Level 1.4 gm/dl (3.4-5.0); BUN Creatinine Ratio 41.3 (10-20); Calcium 8.8 mg/dl (8.5-10.1); Creatinine Clr Calc Pharmacy 20.6 ml/min; Est GFR (African American) 17.5; Est GFR (Non-African American) 15.1; Potassium 4.9 mmol/L (3.5-5.1)
[2018-09-24 06:11] LABS: Albumin Globulin Ratio 0.4 (0.9-2); Bilirubin,Total 0.3 mg/dl (0.2-1); Globulin 3.9 gm/dl (2.5-4.0); Total Protein 5.3 gm/dl (6.4-8.2)
--- NOTE | 2018-09-24 06:55 | Family Medicine Progress Note ---
Date of Service September 24, 2018 Assessment & Plan (1) Pancreatitis: 83F was admitted on 10 September 2018 for nausea, abdominal pain, and distention. Found to have acute pancreatitis. Pt was started on Zosyn which was narrowed to a cephalosporin on 09/13/18 and then added Levoquin on 09/16/18 which was broadened to Vanc + Imipenem on 09/19/18 WBC elevation, fevers. Blood cultures repeated on 09/10/18 and ID consulted on that day as well for persistent fevers. Currently on Imipenem providing coverage for GI microbial activity from pancreatitis. PMHx: HTN, HLD (TAG ~200), DM2, neuropathy, hypothyroidism: Prior partial thyroidectomy, breast cancer s/p mastectomy in 2000. Morbid obesity (BMI 40). 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 Acute pancreatitis likely 2/2 cholelithiasis Initial worsening of abdominal pain symptoms after admission (now no complaints), but repeat CT on 09/14 showed persistent pancreatitis without cyst or necrosis. Empiric abx (initially Zosyn) started and narrowed to Cephalosporin on 09/13/18 and then re-broadened on 09/19/18. Repeat CT Scan on 09/20/18 showed no acute changes however GB consistently inflamed. Currently on Imipenem. ID recommended 24-48 more hours of antibiotic. Surgery and GI following, plan cholecystectomy once acute inflammation from pancreatitis has resolved. Tolerating meals without pain or complications. Repeat blood cultures negative. Slow and indolent recovery, Day #14 of admission. Imipenem for cholecystitis. No complaints of abdominal pain this morning. Not currently on IVFs Diffuse Edema Pt is up 17kg since admission likely all 3rd spaced given oliguria. No significant decrease in weight. Did get one time dose of Lasix yesterday per Nephro recs. Encourage ambulation and incentive spirometry. With numerous conversations provided. Will continue to provide coaching to patient to encourage ambulation/activity. Compression stockings were ordered but appears patient unable to tolerate. On Boost supplements. Need to increase protein intake to help increase osmotic pull into vasculature system. Acute on chronic CKD stage IV Baseline Cr ~1.7-2.0. Creatinine 09/22 3.02; 09/23 2.77; 09/24 2.88 today, low urine output but is still slightly improved from previous. Nephrology previously gave Albumin. will follow up on current recs. Atrial fibrillation, new Converted with one dose of IV Lopressor Continue PO metoprolol 25 mg daily CHADVASC 9.8%. On dvt proph anticoagulation, no indication for bridge, will address adding Vitk antagonist vs NOAC at discharge. Bilateral knee pain - chronic Severe and prevents patients from wanting to be moved in bed, let alone engaging in PT/OT Ordered voltaren gel to be applied bilaterally QID Advised nursing to use IV morphine 20-30min prior to moving and therapy Considerations that decreased alertness could be contributed to Morphine. She appears slightly more alert today and there wasn't note of receiving Morphine since last night. But difficult as want to treat pain in order for her to increase activity and also with goal to keep patient comfortable. Possible pneumonia on CT Scan, 09/19/[address] results with Dr. Cotter, likely atelectasis and not pneumonia. No concerns for ARDS. Pt is no respiratory distress. Abx as above. Diabetes, neuropathy At home, on insulin and gabapentin 200 mg p.o. nightly Hold gabapentin due to renal issues Previous to 09/24, Insulin tightened to Lantus 35BID and tighter ISS scale given patient now eating better - She had glucose this morning of 57 for which nursing gave IV Dextrose which improved to value greater than 100. - Only required 11 of Novolog yesterday with Lantus 35 units BID. Discussed with pharmacy and placed consult for team approach to manage. Agree with discussion of holding Lantus this morning and adjusting basal dosing. She is having good oral intake this morning of her breakfast. Acute on chronic anemia Recent comparisons in Hb 10's. Continue monitoring HTN, hypertriglyceridemia Continue ASA and gemfibrozil. Hold olmesartan for kidney fxn Hypothyroidism Prior partial thyroidectomy. Continue levothyroxine Breast cancer s/p mastectomy in 2000 Diet: Low-fat diet, IVF as above. DVT proph: Heparin twice daily. PT/OT: Ordered. Dispo: Admitted to PCU telemetry. Code status: DNR. (2) Cellulitis of left lower extremity: Continue intravenous Zosyn therapy started in the ED. No signs of current active infection today, no increase in warmth, erythema now most likely post-inflammatory hyper pigmentation. (3) Cholelithiasis: (4) Abdominal pain: (5) Nausea & vomiting: (6) Hypothyroidism (acquired): (7) Diabetes mellitus: (8) Chronic anemia: Supervising Physician Co-Signing Physician Notes Attending attestation Pt seen and examined in concert with Dr. Soliz. In agreement with the documented findings as noted in the resident documentation with any exceptions or additions as noted here. Stable abdominal discomfort. Mildly improve b/l lower extremity pain/tightness. Was able to tolerate only minimal work with PT/OT. Family present at bedside, reviewed case, prognosis and next steps. Encouraged support. Acute pancreatitis with underlying cholelithiasis - no intended surgical intervention at present, surgical consultation appreciated - continue imipenem x 1 more day Severe edema in the setting of Acute on CKDIV - nephrology consultation appreciated. Negative fluid balance with diuresis but increasing Cr and BUN. Encourage PT/OT. Per nephrology, consideration for dialysis reviewed. Atrial fibrillation - continue metoprolol. AC at discharge. Else see resident documentation as noted. Subjective Dana states slight improvement subjectively in her condition overall. She does not endorse worsening dyspnea or chest pain. Overnight events reported, had dysphagia on swallowing pill which was then crushed into applesauce. Patient does not recall event last night. She notes continued pain in her bilateral legs. No nausea, vomiting, diarrhea. She tolerated breakfast well this morning. Physical Exam Constitutional: + ill appearing, + morbidly obese and cooperative Eyes: + anicteric sclerae and EOM intact bilaterally Neck: trachea midline Respiratory: no respiratory distress Auscultation: + diminished lung sounds (at bases, improved air movement from previous to apices bilaterally.) Cardiovascular: Rate/Rhythm: regular rate and regular rhythm Extremities: + edema Gastrointestinal (Abdomen): Inspection/Auscultation: + abdomen distended Skin: chronic venous stasis ulcerations to bilateral lower extremities with erythema consistent with post-inflammatory hyperpigmentation, no increase warmth to indicate signs of cellulitic infection. Neurologic: awake mental status appears slightly improved today, was able to answer more than one word response, but only once. She appears more alert. Psychiatric: Orientation: alert and oriented x 3 Affect: + flat affect Results & Data Vital Signs (Past 12 Hours) Vital Signs Temp Pulse Pulse Resp BP Pulse Ox 09/24/18 02:48 36.4 C L 69 16 108/83 97 09/23/18 23:46 36.4 C L 64 16 129/62 96 09/23/18 23:42 72 09/23/18 19:35 37.0 C 75 17 123/65 99 PG Care Time/CCT Total # of Minutes Spent Total Time Spent with Patient: Total time spent is greater than 50% in coordination of care (as documented) at patient's floor/unit and/or counseling patient: Resident Activity Tracking Resident Involvement: Resident Care Provided Care Provided: Adult Hospital Medicine (1) Pancreatitis Acute pancreatitis complication: unspecified Chronicity: acute Pancreatitis type: other Qualified Code(s): K85.80 - Other acute pancreatitis without necrosis or infection (2) Nausea & vomiting Vomiting Intractability: unspecified Vomiting type: unspecified Qualified Code(s): R11.2 - Nausea with vomiting, unspecified (3) Abdominal pain Abdominal location: unspecified location Qualified Code(s): R10.9 - Unspecified abdominal pain
[2018-09-24] MEDS: ACETAMINOPHEN 65 ML IV PRN (07:41)
[2018-09-24] MEDS ORDERED: PHARMACY GLYCEMIC MGMT CONSULT PRN (08:47)
[2018-09-24] MEDS: INSULIN ASPART 100 UNITS/ML 3 ML PEN SC SCH ×4 (08:53→21:41)
[2018-09-24] MEDS: ASPIRIN 81 MG ECTAB PO SCH (08:59)
[2018-09-24] MEDS: LACTOBACILLUS ACIDOPHILUS (FLORANEX) TAB PO SCH ×4 (09:00→20:53)
[2018-09-24] MEDS: OMEGA-3 (PURIFIED FISH OIL) 1 GM CAP PO SCH (09:02)
[2018-09-24] MEDS: HEPARIN SOD 5,000 UNIT/0.5 ML VIAL SQ SCH ×2 (09:02→20:27)
[2018-09-24] MEDS: GEMFIBROZIL 600 MG TAB PO SCH (09:03)
[2018-09-24] MEDS: CHOLECALCIFEROL 1,000 UNITS TAB PO SCH (09:03)
[2018-09-24] MEDS: DICLOFENAC SOD 1% GEL 100 GM TUBE EXT SCH ×5 (09:06→20:53)
--- NOTE | 2018-09-24 09:41 | Pharmacy Report ---
Glycemic Control Consultation - Date of Service September 24, 2018 - Scope Scope: Glycemic Pharmacist consulted for glycemic control and to write orders per [facility] inpatient glycemic control protocol - Objective Weight: 124 kg Accjesseecks BSG (last 24hrs): 09/23/18 09/23/18 09/23/18 11:21 16:29 20:23 Glucose POC Glucose 101 H 106 H 84 09/24/18 09/24/18 09/24/18 05:24 07:31 07:32 Glucose 57 L POC Glucose 59 L* 66 L* 09/24/18 07:57 Glucose POC Glucose 103 H Laboratory Data (last 24hrs): 09/24/18 05:24 Potassium 4.9 Carbon Dioxide 20 L Anion Gap 10.0 Creatinine 2.80 H Est Cr Clr Drug Dosing 20.6 - Recent Pertinent Medications Outpatient Anti-diabetic Regimen: * Novolin 70/30 - 60 units SC BID * A1c 6.2% April 2018, repeat on order for 09/25/18 The patient is currently receiving: * Basal insulin: Lantus 35 units every 12 hours * Correctional Insulin: Novolog Correction per scale ACHS Goal Range: Low 120 mg/dL - High 150 mg/dL Correction Factor: 10 mg/dL/unit * Prandial insulin: Per carb ratio of 1 unit per 4 grams CHO consumed Risk Factors for Insulin Resistance: * Infection: Pancreatitis, cholecystitis, cellulitis. On ertapenem and vancomycin * Recent Surgery: no surgical intervention planned at this time * Diet: T2DM - Assessment & Plan Assessment & Plan: ASSESSMENT: * 83 yo F with T2DM admitted 09/16 with pancreatitis. Pharmacy consulted on 09/24 2nd hypoglycemia this AM * Etiology of hypoglycemia likely 2nd Lantus dose too high * AM fasting BSG with notable trend down x3 days: 138 - 108 - 86 - 59 mg/dL * No po intake since lunch yesterday; dinner BSG and on also with notable trend down: 106 - 84 - 59 mg/dL * Patient received a total of 81 units of insulin yesterday (09/23), with 86% of that as basal insulin (70 units total) * RN notes poor po intake - patient with 3 day trend of eating a good amount of CHO at breakfast, but minimal to no CHO intake at lunch and dinner. * Will hold Lantus this AM, then resume this evening - likely 35-50% reduction, depending on BSG * Patient can still continue Novolog, but will also hold x1 this AM as effects of Lantus yesterday will persist until at least this afternoon/evening and would like to prevent a repeat hypoglycemic event at lunch today, especially as po intake after this AM is likely to be poor based on trend of previous days. * BSG trended up from breakfast to lunch from 59 to 159 mg/dL after ~80 g CHO consumed with breakfast. OK to resume Novolog. Will do so at a slightly looser CHO than I anticipate the patient will need ongoing as effects of Lantus yesterday will still persist this afternoon. Will then tighten tomorrow AM * Will add one overnight BSG check as decrease in Lantus today will be aggressive based on severity of hypoglycemia this AM, poor po intake, and a high percentage of basal insulin as compared to bolus insulin yesterday * Will increase goal range for now to prevent a repeat episode of hypoglycemia due to excessive correctional insulin PLAN FOR INPATIENT GLYCEMIC CONTROL: * Basal insulin: hold Lantus this AM, then HS x1 based on BSG as follows: * 25 units for BSG less than 110 mg/dL * 35 units for BSG 110-180 mg/dL * 45 units for BSG greater than 180 mg/dL * Bolus insulin * NovoLog per scale ACHS or Q6hrs while NPO * Goal Range: Low 120 mg/dL - High 160 mg/dL * Correction Factor: 20 mg/dL/unit * Carb ratio: 7 g CHO/unit today, then 6 g CHO/unit starting tomorrow * Please note that the plan above was derived based on current level of insulin resistance and hospital stress. These recommendations are appropriate for inpatient admission only. Plan of care upon discharge will need to be reassessed to avoid potential outpatient hypo/hyperglycemia. Thank you.
--- NOTE | 2018-09-24 09:46 | Nephrology Progress Note ---
Date of Service September 24, 2018 Assessment & Plan (1) Acute kidney injury: ATN related to inflammation and intravascular volume contraction associated w/ pancreatitis. Patient has profound hypoalbuminemia and 3rd spacing of volume. Creatinine stable at 2.8 mg/dL. Increasing azotemia associated with intravascular volume expansion. TBW significantly increased but intravascularly depleted. Inadequate nutrition remains a significant concern. 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 Inflammation of pancreas and retroperitoneal space essentially unchanged. Rising creatinine & 3rd spacing of volume is concerning for ongoing inflammation and poor nutrition (2) Chronic kidney disease, stage IV (severe): -- Baseline creatinine ~ 1.7 - 2.0 (3) Pancreatitis: (4) Cholelithiasis: -- Surgery plan cholecystectomy once acute inflammation from pancreatitis has resolved unfortunately the patient is unlikely to be a surgical candidate in the near future (5) Hypertension: -- Olmesartan held due to LISA (6) Diabetes mellitus: (7) Cellulitis of left lower extremity: -- On IV Vanco & Imipenem as per ID Subjective No acute events overnight. Dana was seen and evaluated with her son at the bedside. She endorses lower back pain. She remains profoundly weak. She slept most of the time that I was in the room. She would answer questions but continues to answer only in short simple responses. Oral mucosa are notably dry. Oral intake is reported as fair by nursing staff. The patient's son noted that Dana did not eat any of her dinner last night. She was able to eat cereal this morning with assistance. She took her medications with applesauce. Slightly negative fluid balance with IV furosemide 40 mg yesterday. Review of Systems Review of Systems: All systems reviewed & are unremarkable except as noted in HPI & below Physical Exam Constitutional: + ill appearing, + morbidly obese, + frail appearing and + lethargic Eyes: PERRL, conjunctivae normal, anicteric sclerae ENMT: Mouth: + dry oral mucous membranes; no oral mucosal abnormality Neck: trachea midline, no thyromegaly Respiratory: normal respiratory effort, lungs clear to auscultation no respiratory distress Cardiovascular: Heart Sounds: normal S1 and normal S2 Extremities: + edema Gastrointestinal (Abdomen): Inspection/Auscultation: + abdomen distended and + hypoactive bowel sounds Percussion/Palpation: + abdomen tender; no guarding Musculoskeletal: Extremities: no cyanosis and no clubbing Skin: + turgor decreased and + erythema (LLE) Neurologic: Motor/Sensory: no tremor and no asterixis Genitourinary: Bhatt draining yellow urine Results & Data Vital Signs (Past 12 Hours) Vital Signs Temp Pulse Pulse Resp BP Pulse Ox 09/24/18 06:52 36.5 C 69 18 136/68 98 09/24/18 02:48 36.4 C L 69 16 108/83 97 09/23/18 23:46 36.4 C L 64 16 129/62 96 09/23/18 23:42 72 Laboratory Results Laboratory Results - last 24 hr 09/23/18 09/23/18 09/23/18 11:21 16:29 20:23 WBC RBC Hgb Hct MCV MCH MCHC RDW Std Deviation RDW Coeff of Brian Plt Count MPV Immature Gran % (Auto) Neut % (Auto) Lymph % (Auto) [place] % (Auto) Eos % (Auto) Baso % (Auto) Immature Gran # (Auto) Neut # (Auto) Lymph # (Auto) [place] # (Auto) Eos # (Auto) Baso # (Auto) RBC Morphology Sodium Potassium Chloride Carbon Dioxide Anion Gap BUN Creatinine Est Cr Clr Drug Dosing Est GFR ( Amer) Est GFR (Non-Af Amer) BUN/Creatinine Ratio Glucose POC Glucose 101 H 106 H 84 Calcium Total Bilirubin AST ALT Alkaline Phosphatase Total Protein Albumin Globulin Albumin/Globulin Ratio Random Vancomycin 09/24/18 09/24/18 09/24/18 05:24 05:24 05:24 WBC 7.99 RBC 2.79 L Hgb 8.5 L Hct 25.7 L MCV 92.1 MCH 30.5 MCHC 33.1 RDW Std Deviation 48.0 H RDW Coeff of Brian 14.1 Plt Count 274 MPV 10.0 Immature Gran % (Auto) 2.3 Neut % (Auto) 73.1 Lymph % (Auto) 15.1 [place] % (Auto) 5.4 Eos % (Auto) 3.8 Baso % (Auto) 0.3 Immature Gran # (Auto) 0.18 H Neut # (Auto) 5.85 Lymph # (Auto) 1.21 [place] # (Auto) 0.43 Eos # (Auto) 0.30 Baso # (Auto) 0.02 RBC Morphology Unremarkable Sodium 141 Potassium 4.9 Chloride 111 H Carbon Dioxide 20 L Anion Gap 10.0 BUN 116 H Creatinine 2.80 H Est Cr Clr Drug Dosing 20.6 Est GFR ( Amer) 17.5 Est GFR (Non-Af Amer) 15.1 BUN/Creatinine Ratio 41.3 H Glucose 57 L POC Glucose Calcium 8.8 Total Bilirubin 0.3 AST 85 H ALT 25 Alkaline Phosphatase 106 Total Protein 5.3 L Albumin 1.4 L Globulin 3.9 Albumin/Globulin Ratio 0.4 L Random Vancomycin 22.9 09/24/18 09/24/18 09/24/18 07:31 07:32 07:57 WBC RBC Hgb Hct MCV MCH MCHC RDW Std Deviation RDW Coeff of Brian Plt Count MPV Immature Gran % (Auto) Neut % (Auto) Lymph % (Auto) [place] % (Auto) Eos % (Auto) Baso % (Auto) Immature Gran # (Auto) Neut # (Auto) Lymph # (Auto) [place] # (Auto) Eos # (Auto) Baso # (Auto) RBC Morphology Sodium Potassium Chloride Carbon Dioxide Anion Gap BUN Creatinine Est Cr Clr Drug Dosing Est GFR ( Amer) Est GFR (Non-Af Amer) BUN/Creatinine Ratio Glucose POC Glucose 59 L* 66 L* 103 H Calcium Total Bilirubin AST ALT Alkaline Phosphatase Total Protein Albumin Globulin Albumin/Globulin Ratio Random Vancomycin (1) Pancreatitis Acute pancreatitis complication: unspecified Chronicity: acute Pancreatitis type: other Qualified Code(s): K85.80 - Other acute pancreatitis without necrosis or infection
[2018-09-24] MEDS ORDERED: FUROSEMIDE 60 MG in SYRINGE 0 ML IV ONE (10:00)
--- NOTE | 2018-09-24 13:51 | Pharmacy Report ---
Pharmacy Abx Dose Short Note - Date of Service September 24, 2018 - Assessment & Plan Assessment * 83 year old F receiving ertapenem and vancomycin for treatment of pancreatitis, cholecystitis, and probable left lower extremity cellulitis * WBC trending down and within normal limits as of today. Afebrile x48 hours * SCr stable, but significantly elevated from baseline Vancomycin * Goal vancomycin trough 15-20 mcg/mL * Random level of 22.9 mcg/mL this AM is supratherapeutic - slight accumulation from yesterday despite maintaining dose from previous day possibly attributed to small decrease in renal clearance due to furosemide 40 mg IV x1 yesterday. Additional 60 mg IV x1 administered this AM therefore ongoing clearance may also be impacted * Repeat random level of 21.8 mcg/mL is persistently supratherapeutic despite being drawn ~8.5 hours after the level this AM * Based on the trend in levels today (and assuming no further change in renal function) level will not fall below 17 mcg/mL for at least 24 hours Plan * No vancomycin today * Repeat random level in AM tomorrow Pharmacy will continue to follow and will adjust dose/frequency as necessary. Thank you.
[2018-09-24] MEDS: ERTAPENEM SODIUM 500 MG in SODIUM CHLORIDE 0.9% 50 ML IV SCH (15:51)
[2018-09-24 17:11] LABS: BUN Creatinine Ratio 42.5 (10-20); Calcium 8.6 mg/dl (8.5-10.1); Creatinine Clr Calc Pharmacy 21.1 ml/min; Est GFR (African American) 18.5; Potassium 4.9 mmol/L (3.5-5.1)
--- NOTE | 2018-09-24 17:11 | Surgery Progress Note ---
Date of Service September 24, 2018 Assessment & Plan (1) Pancreatitis: 83 yo female with gallstone pancreatitis. Repeat CT scan on 09/20/18 showed stable severe pancreatitis. Will eventually need a cholecystectomy, but will need to wait for inflammation from significant pancreatitis to improve. S urgical timing to be determined. While ideally surgery is performed during the same hospitalization, given the severity of the pancreatitis may need to wait a prolonged period prior to intervening surgically, especially since no signs of acute cholecystitis. LISA on chronic kidney disease -baseline creatinine 1.7-2.0 - 2.8 today (2.77 yesterday) - third spacing of fluid with body wall anasarca - bilateral lower extremity edema - low albumin Gallbladder distended on CT scan and some inflammatory change however this could be secondary to pancreatitis and fluid overload. No abdominal pain, leukocytosis resolved. LFTS wnl other than mild increase in AST. Unlikely acute cholecystitis. - Continue conservative management - Highly likely that she will end up needing recovery period and return for elective cholecystectomy. - Advance diet as tolerating, BOOST supplementation TID given low albumin - incentive spirometry 10x/hour - Defer Renee management to hospitalist and nephrology, okay to remove renee from surgical standpoint - NEEDS TO WORK ON STRENGTH/PT, HAS NOT BEEN OUT OF BED, IF UNABLE TO BE OOB MUST BE IN SEATED POSITION IN CHAIR AND WORK ON MOVING EXTREMITIES THROUGHOUT THE DAY Subjective patient sleeping upon entering room, patient very fatigued today but easily awakened. Answers questions with short answers. No abdominal pain. Leg pain improving. Able to eat cereal today. Physical Exam Constitutional: + ill appearing and + morbidly obese; no acute distress Respiratory: normal respiratory effort; no respiratory distress Gastrointestinal (Abdomen): Inspection/Auscultation: abdomen normal to inspection; abdomen not distended Percussion/Palpation: abdomen soft; abdomen nontender, no guarding and abdomen not rigid Musculoskeletal: bilateral lower extremity edema Skin: no rashes, warm and dry Results & Data Vital Signs (Past 12 Hours) Vital Signs Temp Pulse Pulse Resp BP Pulse Ox 09/24/18 15:31 36.3 C L 72 15 161/65 H 98 09/24/18 07:35 69 09/24/18 06:52 36.5 C 69 18 136/68 98 Laboratory Results 09/24/18 09/24/18 09/24/18 Range/Units 16:27 16:06 13:48 WBC (4.8-10.8) K/uL RBC (4.2-5.4) M/uL Hgb (12.0-16.0) g/dL Hct (37-47) % MCV (80-100) fL MCH (25-34) pg MCHC (32-36) g/dL RDW Std Deviation (36.4-46.3) fL RDW Coeff of Brian (11.5-14.5) % Plt Count (130-400) K/uL MPV (7.4-10.4) fL Immature Gran % (Auto) % Neut % (Auto) % Lymph % (Auto) % [place] % (Auto) % Eos % (Auto) % Baso % (Auto) % Immature Gran # (Auto) (0.00-0.02) K/uL Neut # (Auto) (1.4-6.5) K/uL Lymph # (Auto) (1.2-3.4) K/uL [place] # (Auto) (0.11-0.59) K/uL Eos # (Auto) (0-0.5) K/uL Baso # (Auto) (0-0.2) K/uL RBC Morphology Sodium Pending (136-145) mmol/L Potassium Pending (3.5-5.1) mmol/L Chloride Pending (98-107) mmol/L Carbon Dioxide Pending (21-32) mmol/L Anion Gap Pending (3-11) BUN Pending (7-18) mg/dl Creatinine Pending (0.6-1.2) mg/dl Est Cr Clr Drug Dosing Pending ml/min Est GFR ( Amer) Pending Est GFR (Non-Af Amer) Pending BUN/Creatinine Ratio Pending (10-20) Glucose Pending (70-99) mg/dl POC Glucose 129 H (70-99) Calcium Pending (8.5-10.1) mg/dl Total Bilirubin (0.2-1) mg/dl AST (15-37) U/L ALT (12-78) U/L Alkaline Phosphatase (45-117) U/L Total Protein (6.4-8.2) gm/dl Albumin (3.4-5.0) gm/dl Globulin (2.5-4.0) gm/dl Albumin/Globulin Ratio (0.9-2) Random Vancomycin 21.8 mcg/ml 09/24/18 09/24/18 09/24/18 Range/Units 11:29 07:57 07:32 WBC (4.8-10.8) K/uL RBC (4.2-5.4) M/uL Hgb (12.0-16.0) g/dL Hct (37-47) % MCV (80-100) fL MCH (25-34) pg MCHC (32-36) g/dL RDW Std Deviation (36.4-46.3) fL RDW Coeff of Brian (11.5-14.5) % Plt Count (130-400) K/uL MPV (7.4-10.4) fL Immature Gran % (Auto) % Neut % (Auto) % Lymph % (Auto) % [place] % (Auto) % Eos % (Auto) % Baso % (Auto) % Immature Gran # (Auto) (0.00-0.02) K/uL Neut # (Auto) (1.4-6.5) K/uL Lymph # (Auto) (1.2-3.4) K/uL [place] # (Auto) (0.11-0.59) K/uL Eos # (Auto) (0-0.5) K/uL Baso # (Auto) (0-0.2) K/uL RBC Morphology Sodium (136-145) mmol/L Potassium (3.5-5.1) mmol/L Chloride (98-107) mmol/L Carbon Dioxide (21-32) mmol/L Anion Gap (3-11) BUN (7-18) mg/dl Creatinine (0.6-1.2) mg/dl Est Cr Clr Drug Dosing ml/min Est GFR ( Amer) Est GFR (Non-Af Amer) BUN/Creatinine Ratio (10-20) Glucose (70-99) mg/dl POC Glucose 159 H 103 H 66 L* (70-99) Calcium (8.5-10.1) mg/dl Total Bilirubin (0.2-1) mg/dl AST (15-37) U/L ALT (12-78) U/L Alkaline Phosphatase (45-117) U/L Total Protein (6.4-8.2) gm/dl Albumin (3.4-5.0) gm/dl Globulin (2.5-4.0) gm/dl Albumin/Globulin Ratio (0.9-2) Random Vancomycin mcg/ml 09/24/18 09/24/18 09/24/18 Range/Units 07:31 05:24 05:24 WBC (4.8-10.8) K/uL RBC (4.2-5.4) M/uL Hgb (12.0-16.0) g/dL Hct (37-47) % MCV (80-100) fL MCH (25-34) pg MCHC (32-36) g/dL RDW Std Deviation (36.4-46.3) fL RDW Coeff of Brian (11.5-14.5) % Plt Count (130-400) K/uL MPV (7.4-10.4) fL Immature Gran % (Auto) % Neut % (Auto) % Lymph % (Auto) % [place] % (Auto) % Eos % (Auto) % Baso % (Auto) % Immature Gran # (Auto) (0.00-0.02) K/uL Neut # (Auto) (1.4-6.5) K/uL Lymph # (Auto) (1.2-3.4) K/uL [place] # (Auto) (0.11-0.59) K/uL Eos # (Auto) (0-0.5) K/uL Baso # (Auto) (0-0.2) K/uL RBC Morphology Sodium 141 (136-145) mmol/L Potassium 4.9 (3.5-5.1) mmol/L Chloride 111 H (98-107) mmol/L Carbon Dioxide 20 L (21-32) mmol/L Anion Gap 10.0 (3-11) BUN 116 H (7-18) mg/dl Creatinine 2.80 H (0.6-1.2) mg/dl Est Cr Clr Drug Dosing 20.6 ml/min Est GFR ( Amer) 17.5 Est GFR (Non-Af Amer) 15.1 BUN/Creatinine Ratio 41.3 H (10-20) Glucose 57 L (70-99) mg/dl POC Glucose 59 L* (70-99) Calcium 8.8 (8.5-10.1) mg/dl Total Bilirubin 0.3 (0.2-1) mg/dl AST 85 H (15-37) U/L ALT 25 (12-78) U/L Alkaline Phosphatase 106 (45-117) U/L Total Protein 5.3 L (6.4-8.2) gm/dl Albumin 1.4 L (3.4-5.0) gm/dl Globulin 3.9 (2.5-4.0) gm/dl Albumin/Globulin Ratio 0.4 L (0.9-2) Random Vancomycin 22.9 mcg/ml 09/24/18 09/23/18 Range/Units 05:24 20:23 WBC 7.99 (4.8-10.8) K/uL RBC 2.79 L (4.2-5.4) M/uL Hgb 8.5 L (12.0-16.0) g/dL Hct 25.7 L (37-47) % MCV 92.1 (80-100) fL MCH 30.5 (25-34) pg MCHC 33.1 (32-36) g/dL RDW Std Deviation 48.0 H (36.4-46.3) fL RDW Coeff of Brian 14.1 (11.5-14.5) % Plt Count 274 (130-400) K/uL MPV 10.0 (7.4-10.4) fL Immature Gran % (Auto) 2.3 % Neut % (Auto) 73.1 % Lymph % (Auto) 15.1 % [place] % (Auto) 5.4 % Eos % (Auto) 3.8 % Baso % (Auto) 0.3 % Immature Gran # (Auto) 0.18 H (0.00-0.02) K/uL Neut # (Auto) 5.85 (1.4-6.5) K/uL Lymph # (Auto) 1.21 (1.2-3.4) K/uL [place] # (Auto) 0.43 (0.11-0.59) K/uL Eos # (Auto) 0.30 (0-0.5) K/uL Baso # (Auto) 0.02 (0-0.2) K/uL RBC Morphology Unremarkable Sodium (136-145) mmol/L Potassium (3.5-5.1) mmol/L Chloride (98-107) mmol/L Carbon Dioxide (21-32) mmol/L Anion Gap (3-11) BUN (7-18) mg/dl Creatinine (0.6-1.2) mg/dl Est Cr Clr Drug Dosing ml/min Est GFR ( Amer) Est GFR (Non-Af Amer) BUN/Creatinine Ratio (10-20) Glucose (70-99) mg/dl POC Glucose 84 (70-99) Calcium (8.5-10.1) mg/dl Total Bilirubin (0.2-1) mg/dl AST (15-37) U/L ALT (12-78) U/L Alkaline Phosphatase (45-117) U/L Total Protein (6.4-8.2) gm/dl Albumin (3.4-5.0) gm/dl Globulin (2.5-4.0) gm/dl Albumin/Globulin Ratio (0.9-2) Random Vancomycin mcg/ml (1) Pancreatitis Acute pancreatitis complication: unspecified Chronicity: acute Pancreatitis type: other Qualified Code(s): K85.80 - Other acute pancreatitis without necrosis or infection
[2018-09-24] MEDS ORDERED: FUROSEMIDE 40 MG in SYRINGE 0 ML IV ONE (18:00)
[2018-09-24] MEDS: METOPROLOL SUCC 25MG EXT REL TAB PO SCH (20:50)
[2018-09-24] MEDS ORDERED: INSULIN GLARGINE SOLOSTAR 100 UNITS/ML 3 ML PEN SC ONE (21:00)
[2018-09-25] MEDS: IMIPENEM/CILASTATIN SODIUM 200 MG in DEXTROSE 5% 100 ML IV SCH (01:56)
[2018-09-25] MEDS: SODIUM CHLORIDE 0.45 % 1,000 ML IV SCH ×2 (01:56→01:57)
[2018-09-25] MEDS ORDERED: INSULIN ASPART 100 UNITS/ML 3 ML PEN SC ONE (02:00)
[2018-09-25] MEDS: LEVOTHYROXINE SODIUM 75 MCG TABLET PO SCH (06:05)
[2018-09-25] MEDS ORDERED: TRAMADOL HCL 50 MG TABLET PO STA (06:22)
[2018-09-25] MEDS ORDERED: INSULIN ASPART 100 UNITS/ML 3 ML PEN SC SCH (07:30)
[2018-09-25 08:03] LABS: Hematocrit (blood only) 26.3 % (37-47); Hemoglobin 8.6 g/dL (12.0-16.0); Mean Corpuscular Hgb Conc 32.7 g/dL (32-36); Mean Corpuscular Volume 92.3 fL (80-100); Mean Platelet Volume 10.3 fL (7.4-10.4); Platelet Count 292 K/uL (130-400); RDW Standard Deviation 47.5 fL (36.4-46.3); Red Blood Count 2.85 M/uL (4.2-5.4); White Blood Count 6.62 K/uL (4.8-10.8)
[2018-09-25 08:07] LABS: Estimated Average Glucose 154 mg/dl
[2018-09-25 08:33] LABS: Albumin Level 1.4 gm/dl (3.4-5.0); BUN Creatinine Ratio 49.2 (10-20); Calcium 8.5 mg/dl (8.5-10.1); Creatinine Clr Calc Pharmacy 24.1 ml/min; Est GFR (African American) 22.1; Est GFR (Non-African American) 19.1; Phosphorus 6.6 mg/dl (2.5-4.9); Potassium 4.9 mmol/L (3.5-5.1)
[2018-09-25] MEDS: GEMFIBROZIL 600 MG TAB PO SCH (08:58)
--- NOTE | 2018-09-25 08:58 | Nephrology Progress Note ---
Date of Service September 25, 2018 Assessment & Plan (1) Acute kidney injury: ATN related to SIRS and decreased EAV associated w/ pancreatitis. Patient has profound hypoalbuminemia and 3rd spacing of volume. Creatinine slightly improved today mg/dL. Notable azotemia persists. No signs of GIB. Certainly evidence of intravascular volume depletion. TBW significantly increased but intravascularly depleted. Poor nutrition remains a significant concern. -- Patient w/ 3rd spacing of volume due to pancreatic inflammation and low serum albumin -- Additional 80 mg IV furosemide provided this morning -- No emergent role for dialysis: patient remains non-oliguric in a negative fluid balance with improving creatinine -- Significant concerns about the risks of HD in her current frail and debilitated condition have been acknowledged -- Improved nutrition and mobility are essential to recovery -- Monitor volume status, UO and PRP -- BP is acceptable -- 09/[address] reviewed. Inflammation of pancreas and retroperitoneal space essentially unchanged. Rising creatinine & 3rd spacing of volume is concerning for ongoing inflammation and poor nutrition (2) Chronic kidney disease, stage IV (severe): -- Baseline creatinine ~ 1.7 - 2.0 (3) Pancreatitis: (4) Cholelithiasis: -- Surgery plan cholecystectomy once acute inflammation from pancreatitis has resolved -- Surgical follow up yesterday suggests that patient's condition will need to improve before she will be in safe condition for the OR (5) Hypertension: -- Olmesartan held due to LISA (6) Diabetes mellitus: (7) Cellulitis of left lower extremity: -- On IV Vanco & Imipenem as per ID Subjective Dana remains profoundly weak. Her breakfast is at the bedside untouched. She states that she has no appetite. No fevers or chills. She denies abdominal pain. She continues to endorse significant back pain. Dana has not been out of bed. Review of Systems Review of Systems: All systems reviewed & are unremarkable except as noted in HPI & below Physical Exam Constitutional: + ill appearing, + morbidly obese, + frail appearing and + lethargic Eyes: PERRL, conjunctivae normal, anicteric sclerae ENMT: Mouth: + dry oral mucous membranes; no oral mucosal abnormality Neck: trachea midline, no thyromegaly Respiratory: normal respiratory effort, lungs clear to auscultation no respiratory distress Cardiovascular: RRR, no murmur, no edema Heart Sounds: normal S1 and normal S2 Extremities: + edema Gastrointestinal (Abdomen): Inspection/Auscultation: + abdomen distended and + hypoactive bowel sounds Percussion/Palpation: + abdomen tender; no guarding Musculoskeletal: Extremities: no cyanosis and no clubbing Skin: + turgor decreased and + erythema (LLE) Neurologic: Motor/Sensory: no tremor and no asterixis Results & Data Vital Signs (Past 12 Hours) Vital Signs Temp Pulse Pulse Pulse Resp BP Pulse Ox 09/25/18 07:00 36.6 C 87 18 124/61 97 09/25/18 03:51 36.4 C L 83 19 118/64 96 09/25/18 01:40 78 09/24/18 23:21 36.5 C 80 20 145/65 H 99 09/24/18 21:51 86 139/68 Laboratory Results Laboratory Results - last 24 hr 09/24/18 09/24/18 09/24/18 11:29 13:48 16:06 WBC RBC Hgb Hct MCV MCH MCHC RDW Std Deviation RDW Coeff of Brian Plt Count MPV Sodium 140 Potassium 4.9 Chloride 110 H Carbon Dioxide 20 L Anion Gap 10.0 BUN 114 H Creatinine 2.67 H Est Cr Clr Drug Dosing 21.1 Est GFR ( Amer) 18.5 Est GFR (Non-Af Amer) 16.0 BUN/Creatinine Ratio 42.5 H Glucose 122 H POC Glucose 159 H Estimat Average Glucose Hemoglobin A1c Calcium 8.6 Phosphorus Albumin Random Vancomycin 21.8 09/24/18 09/24/18 09/25/18 16:27 20:21 01:58 WBC RBC Hgb Hct MCV MCH MCHC RDW Std Deviation RDW Coeff of Brian Plt Count MPV Sodium Potassium Chloride Carbon Dioxide Anion Gap BUN Creatinine Est Cr Clr Drug Dosing Est GFR ( Amer) Est GFR (Non-Af Amer) BUN/Creatinine Ratio Glucose POC Glucose 129 H 103 H 162 H Estimat Average Glucose Hemoglobin A1c Calcium Phosphorus Albumin Random Vancomycin 09/25/18 09/25/18 09/25/18 07:12 07:33 07:33 WBC RBC Hgb Hct MCV MCH MCHC RDW Std Deviation RDW Coeff of Brian Plt Count MPV Sodium 141 Potassium 4.9 Chloride 111 H Carbon Dioxide 21 Anion Gap 8.0 BUN 114 H Creatinine 2.31 H D Est Cr Clr Drug Dosing 24.1 Est GFR ( Amer) 22.1 Est GFR (Non-Af Amer) 19.1 BUN/Creatinine Ratio 49.2 H Glucose 84 POC Glucose 105 H Estimat Average Glucose 154 Hemoglobin A1c 7.0 H Calcium 8.5 Phosphorus 6.6 H Albumin 1.4 L Random Vancomycin 09/25/18 09/25/18 07:33 08:00 WBC 6.62 RBC 2.85 L Hgb 8.6 L Hct 26.3 L MCV 92.3 MCH 30.2 MCHC 32.7 RDW Std Deviation 47.5 H RDW Coeff of Brian 14.0 Plt Count 292 MPV 10.3 Sodium Potassium Chloride Carbon Dioxide Anion Gap BUN Creatinine Est Cr Clr Drug Dosing Est GFR ( Amer) Est GFR (Non-Af Amer) BUN/Creatinine Ratio Glucose POC Glucose Estimat Average Glucose Hemoglobin A1c Calcium Phosphorus Albumin Random Vancomycin 20.2 (1) Pancreatitis Acute pancreatitis complication: unspecified Chronicity: acute Pancreatitis type: other Qualified Code(s): K85.80 - Other acute pancreatitis without necrosis or infection
[2018-09-25] MEDS: OMEGA-3 (PURIFIED FISH OIL) 1 GM CAP PO SCH (08:59)
[2018-09-25] MEDS: HEPARIN SOD 5,000 UNIT/0.5 ML VIAL SQ SCH ×2 (08:59→20:47)
[2018-09-25] MEDS: INSULIN ASPART 100 UNITS/ML 3 ML PEN SC SCH ×4 (08:59→20:51)
[2018-09-25] MEDS: ASPIRIN 81 MG ECTAB PO SCH (08:59)
[2018-09-25] MEDS: LACTOBACILLUS ACIDOPHILUS (FLORANEX) TAB PO SCH ×4 (08:59→20:18)
[2018-09-25] MEDS: DICLOFENAC SOD 1% GEL 100 GM TUBE EXT SCH ×4 (09:00→20:19)
[2018-09-25] MEDS ORDERED: FUROSEMIDE 80 MG in SYRINGE 0 ML IV ONE (09:01)
--- NOTE | 2018-09-25 09:02 | Surgery Progress Note ---
Date of Service September 25, 2018 Assessment & Plan (1) Pancreatitis: 83 yo female with gallstone pancreatitis. Repeat CT scan on 09/20/18 showed stable severe pancreatitis. Will eventually need a cholecystectomy, but will need to wait for inflammation from significant pancreatitis to improve. S urgical timing to be determined. While ideally surgery is performed during the same hospitalization, given the severity of the pancreatitis may need to wait a prolonged period prior to intervening surgically, especially since no signs of acute cholecystitis. LISA on chronic kidney disease -baseline creatinine 1.7-2.0 - 2.3 today (2.8 yesterday) - third spacing of fluid with body wall anasarca - bilateral lower extremity edema - low albumin Gallbladder distended on CT scan and some inflammatory change however this could be secondary to pancreatitis and fluid overload. No abdominal pain, leukocytosis resolved. LFTS wnl other than mild increase in AST. Unlikely acute cholecystitis. - Continue conservative management - Highly likely that she will end up needing recovery period and return for elective cholecystectomy. - Continue low fat diet up until cholecystectomy, BOOST supplementation TID given low albumin - incentive spirometry 10x/hour - Defer Renee management to hospitalist and nephrology, okay to remove renee from surgical standpoint - NEEDS TO WORK ON STRENGTH/PT, IF UNABLE TO BE OOB MUST BE IN SEATED POSITION IN CHAIR AND WORK ON MOVING EXTREMITIES THROUGHOUT THE DAY Dr. Morales has seen and examined pt, agrees with above Subjective patient complaining of pain when entering room and moaning, states she is having back pain. Located throughout her back. No abdominal pain. Breakfast try at bedside, mostly finished does not give much of history otherwise Physical Exam Constitutional: + ill appearing and + morbidly obese; no acute distress Respiratory: normal respiratory effort; no respiratory distress Gastrointestinal (Abdomen): Inspection/Auscultation: abdomen normal to inspection; abdomen not distended Percussion/Palpation: abdomen soft; abdomen nontender, no guarding and abdomen not rigid Skin: no rashes, warm and dry Psychiatric: Orientation: alert Affect: + flat affect Results & Data Vital Signs (Past 12 Hours) Vital Signs Temp Pulse Pulse Pulse Resp BP Pulse Ox 09/25/18 07:00 36.6 C 87 18 124/61 97 09/25/18 03:51 36.4 C L 83 19 118/64 96 09/25/18 01:40 78 09/24/18 23:21 36.5 C 80 20 145/65 H 99 09/24/18 21:51 86 139/68 (1) Pancreatitis Acute pancreatitis complication: unspecified Chronicity: acute Pancreatitis type: other Qualified Code(s): K85.80 - Other acute pancreatitis without necrosis or infection
--- NOTE | 2018-09-25 09:23 | Pharmacy Report ---
Pharmacy Abx Dose Short Note - Date of Service September 25, 2018 - Assessment & Plan A/P Pt's vanco lvl therapeutic, 20.2mcg/mL. UO increased to 1.06ml/kg/hr, non- oliguric ATN. Protein/RBC present in UC. She does have CKD IV. Given the improvement in her renal fxn we will give her vanco 500mg IV x1 and order a random lvl for tomorrow 09/26/18 @0444. Pharmacy will continue to follow and will adjust dose/frequency as necessary. Thank you.
[2018-09-25] MEDS: ACETAMINOPHEN 65 ML IV PRN ×2 (09:32→19:42)
[2018-09-25] MEDS ORDERED: VANCOMYCIN HCL 500 MG in SODIUM CHLORIDE 0.9% 250 ML IV ONE (10:00)
--- NOTE | 2018-09-25 15:17 | Family Medicine Progress Note ---
Date of Service September 25, 2018 Assessment & Plan (1) Pancreatitis: 83F was admitted on 10 September 2018 for nausea, abdominal pain, and distention. Found to have acute pancreatitis. Pt was started on Zosyn which was narrowed to a cephalosporin on 09/13/18 and then added Levoquin on 09/16/18 which was broadened to Vanc + Imipenem on 09/19/18 WBC elevation, fevers. Blood cultures repeated on 09/10/18 and ID consulted on that day as well for persistent fevers. Currently on Imipenem providing coverage for GI microbial activity from pancreatitis. PMHx: HTN, HLD (TAG ~200), DM2, neuropathy, hypothyroidism: Prior partial thyroidectomy, breast cancer s/p mastectomy in 2000. Morbid obesity (BMI 40). 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 Acute pancreatitis likely 2/2 cholelithiasis Initial worsening of abdominal pain symptoms after admission (now no complaints), but repeat CT on 09/14 showed persistent pancreatitis without cyst or necrosis. Empiric abx (initially Zosyn) started and narrowed to Cephalosporin on 09/13/18 and then re-broadened on 09/19/18. Repeat CT Scan on 09/20/18 showed no acute changes however GB consistently inflamed. Completed 4 total doses of Imipenem. Surgery and GI following, plan cholecystectomy once acute inflammation from pancreatitis has resolved. Tolerating meals without pain or complications. Repeat blood cultures negative. Slow and indolent recovery, Day #15 of admission. Imipenem for cholecystitis - completed 4 doses of abx to date. No complaints of abdominal pain this morning. Not currently on IVFs Diffuse Edema Pt with significant 17kg weight gain during admission likely all 3rd spaced given oliguria. Finally on 09/25, there were signs of improvement with about 2.5kg weight loss with one time doses of Lasix. Her urine output has increased significantly and had a 24-hr negative balance of 2645mL. Encourage ambulation and incentive spirometry. With numerous conversations provided. Will continue to provide coaching to patient to encourage ambulation/activity. Compression stockings were ordered but appears patient unable to tolerate. On Boost supplements. Need to increase protein intake to help increase osmotic pull into vasculature system. Acute on chronic CKD stage IV Baseline Cr ~1.7-2.0. Creatinine 09/22 3.02; 09/23 2.77; 09/24 2.88; Improved to 2.25 today. Nephrology previously gave Albumin. will follow up on current recs. Atrial fibrillation, new Converted with one dose of IV Lopressor Continue PO metoprolol 25 mg daily CHADVASC 9.8%. On dvt proph anticoagulation, no indication for bridge, will address adding Vitk antagonist vs NOAC at discharge. Bilateral knee pain - chronic Severe and prevents patients from wanting to be moved in bed, let alone engaging in PT/OT Ordered voltaren gel to be applied bilaterally QID Advised nursing to use IV morphine 20-30min prior to moving and therapy Considerations that decreased alertness could be contributed to Morphine. She appears slightly more alert today and there wasn't note of receiving Morphine since last night. But difficult as want to treat pain in order for her to increase activity and also with goal to keep patient comfortable. Possible pneumonia on CT Scan, 09/19/[address] results with Dr. Cotter, likely atelectasis and not pneumonia. No concerns for ARDS. Pt is no respiratory distress. Abx as above. Diabetes, neuropathy At home, on insulin and gabapentin 200 mg p.o. nightly Hold gabapentin due to renal issues Previous to 09/24, Insulin tightened to Lantus 35BID and tighter ISS scale given patient now eating better - She had glucose 09/24 morning of 57 for which nursing gave IV Dextrose which improved to value greater than 100. - Only required 11 of Novolog on 09/23 with Lantus 35 units BID. Discussed with pharmacy and placed consult for team approach to manage. Agree with discussion of holding Lantus on 09/24 morning and adjusting basal dosing. She is having good oral intake this morning of her breakfast. Acute on chronic anemia Recent comparisons in Hb 10's. Continue monitoring HTN, hypertriglyceridemia Continue ASA and gemfibrozil. Hold olmesartan for kidney fxn Hypothyroidism Prior partial thyroidectomy. Continue levothyroxine Breast cancer s/p mastectomy in 2000 Diet: Low-fat diet. DVT proph: Heparin twice daily. PT/OT: Ordered. Dispo: Admitted to PCU telemetry. Code status: DNR. (2) Cellulitis of left lower extremity: Discontinued Vancomycin IV. No signs of current active infection today, no increase in warmth, erythema now most likely post-inflammatory hyper pigmentation. (3) Cholelithiasis: (4) Abdominal pain: (5) Nausea & vomiting: (6) Hypothyroidism (acquired): (7) Diabetes mellitus: Currently consulting pharmacy for hyperglycemic management and wollowing recs. (8) Chronic anemia: Supervising Physician Co-Signing Physician Notes Attending attestation Pt seen and examined in concert with Dr. Soliz. In agreement with the documented findings as noted in the resident documentation with any exceptions or additions as noted here. Overall improved abdominal aching pain and bilateral lower extremity discomfort and swelling following 2+L diuresis overnight. Engaged minimally with PT/OT Acute pancreatitis with underlying cholelithiasis - no intended surgical intervention at present, outpatient elective gerardo after convalescence, surgical consultation appreciated - completed course of ertapenem Severe edema in the setting of Acute on CKDIV - nephrology consultation appreciated - improving Cr with diuresis. Continue and monitor. strongly encourage PT/OT engagement as tolerated Atrial fibrillation - continue metoprolol. AC at discharge. Else see resident documentation as noted. Subjective Dana was tired this morning and stated was too tired to eat breakfast this morning. It was reported that she had complaints of back pain overnight. This morning she is resting with comfort. Denies dyspnea or chest pains. Physical Exam Constitutional: + ill appearing, + morbidly obese and cooperative sleeping but easily arousable Eyes: + anicteric sclerae and EOM intact bilaterally Neck: trachea midline Respiratory: no respiratory distress Auscultation: + diminished lung sounds (at bases, improved air movement from previous to apices bilaterally.) Cardiovascular: Rate/Rhythm: regular rate and regular rhythm Extremities: + edema Gastrointestinal (Abdomen): Inspection/Auscultation: + abdomen distended Neurologic: awake Psychiatric: Orientation: alert and oriented x 3 Affect: + flat affect Results & Data Vital Signs (Past 12 Hours) Vital Signs Temp Pulse Resp BP Pulse Ox 09/25/18 11:03 36.4 C L 75 20 122/64 96 09/25/18 07:00 36.6 C 87 18 124/61 97 09/25/18 03:51 36.4 C L 83 19 118/64 96 Laboratory Results Laboratory Results - last 24 hr 09/24/18 09/25/18 09/25/18 20:21 01:58 07:12 WBC RBC Hgb Hct MCV MCH MCHC RDW Std Deviation RDW Coeff of Brian Plt Count MPV Sodium Potassium Chloride Carbon Dioxide Anion Gap BUN Creatinine Est Cr Clr Drug Dosing Est GFR ( Amer) Est GFR (Non-Af Amer) BUN/Creatinine Ratio Glucose POC Glucose 103 H 162 H 105 H Estimat Average Glucose Hemoglobin A1c Calcium Phosphorus Albumin Random Vancomycin 09/25/18 09/25/18 09/25/18 07:33 07:33 07:33 WBC 6.62 RBC 2.85 L Hgb 8.6 L Hct 26.3 L MCV 92.3 MCH 30.2 MCHC 32.7 RDW Std Deviation 47.5 H RDW Coeff of Brian 14.0 Plt Count 292 MPV 10.3 Sodium 141 Potassium 4.9 Chloride 111 H Carbon Dioxide 21 Anion Gap 8.0 BUN 114 H Creatinine 2.31 H D Est Cr Clr Drug Dosing 24.1 Est GFR ( Amer) 22.1 Est GFR (Non-Af Amer) 19.1 BUN/Creatinine Ratio 49.2 H Glucose 84 POC Glucose Estimat Average Glucose 154 Hemoglobin A1c 7.0 H Calcium 8.5 Phosphorus 6.6 H Albumin 1.4 L Random Vancomycin 09/25/18 09/25/18 09/25/18 08:00 11:31 15:02 WBC RBC Hgb Hct MCV MCH MCHC RDW Std Deviation RDW Coeff of Brian Plt Count MPV Sodium 141 Potassium 5.0 Chloride 111 H Carbon Dioxide 20 L Anion Gap 10.0 BUN 104 H Creatinine 2.25 H Est Cr Clr Drug Dosing 24.8 Est GFR ( Amer) 22.8 Est GFR (Non-Af Amer) 19.7 BUN/Creatinine Ratio 46.2 H Glucose 163 H POC Glucose 147 H Estimat Average Glucose Hemoglobin A1c Calcium 8.4 L Phosphorus Albumin Random Vancomycin 20.2 09/25/18 16:02 WBC RBC Hgb Hct MCV MCH MCHC RDW Std Deviation RDW Coeff of Brian Plt Count MPV Sodium Potassium Chloride Carbon Dioxide Anion Gap BUN Creatinine Est Cr Clr Drug Dosing Est GFR ( Amer) Est GFR (Non-Af Amer) BUN/Creatinine Ratio Glucose POC Glucose 172 H Estimat Average Glucose Hemoglobin A1c Calcium Phosphorus Albumin Random Vancomycin Medications Administered Aspirin (Ecotrin Ectab) 81 mg PO DAILY MALIK Stop: 10/14/18 08:59 Last Admin: 09/25/18 08:59 Dose: 81 mg Documented by: [id number] Admin: 09/24/18 08:59 Dose: 81 mg Documented by: [id number] Admin: 09/23/18 07:45 Dose: 81 mg Documented by: [id number] Admin: 09/22/18 08:02 Dose: 81 mg Documented by: [id number] Admin: 09/21/18 08:44 Dose: 81 mg Documented by: [id number] Admin: 09/20/18 09:15 Dose: 81 mg Documented by: [id number] Admin: 09/19/18 08:46 Dose: 81 mg Documented by: [id number] Admin: 09/18/18 07:55 Dose: 81 mg Documented by: [id number] Admin: 09/17/18 08:09 Dose: 81 mg Documented by: [id number] Admin: 09/16/18 08:06 Dose: 81 mg Documented by: [id number] Admin: 09/15/18 08:48 Dose: 81 mg Documented by: [id number] Admin: 09/14/18 07:55 Dose: 81 mg Documented by: [id number] Dextrose (Dextrose 50%) 25 - 50 ml IV UD PRN; Protocol PRN Reason: Hypoglycemia Protocol Stop: 10/10/18 21:14 Last Admin: 09/24/18 07:36 Dose: 25 ml Documented by: [id number] Diclofenac Sodium (Voltaren 1% Top) 1 appln EXT QID MALIK Stop: 10/19/18 12:59 Last Admin: 09/25/18 16:26 Dose: 1 appln Documented by: [id number] Admin: 09/25/18 13:06 Dose: 1 appln Documented by: [id number] Admin: 09/25/18 09:00 Dose: 1 appln Documented by: [id number] Admin: 09/24/18 20:53 Dose: 1 appln Documented by: [id number] Admin: 09/24/18 17:18 Dose: Not Given Documented by: [id number] Admin: 09/24/18 11:42 Dose: Not Given Documented by: [id number] Admin: 09/24/18 09:11 Dose: Not Given Documented by: [id number] Admin: 09/23/18 21:00 Dose: 1 appln Documented by: [id number] Admin: 09/23/18 17:01 Dose: 1 appln Documented by: [id number] Admin: 09/23/18 11:51 Dose: 1 appln Documented by: [id number] Admin: 09/23/18 07:48 Dose: 1 appln Documented by: [id number] Admin: 09/22/18 20:25 Dose: 1 appln Documented by: [id number] Admin: 09/22/18 17:52 Dose: 1 appln Documented by: [id number] Admin: 09/22/18 12:38 Dose: 1 appln Documented by: [id number] Admin: 09/22/18 08:04 Dose: 1 appln Documented by: [id number] Admin: 09/21/18 21:41 Dose: Not Given Documented by: [id number] Admin: 09/21/18 17:10 Dose: 1 appln Documented by: [id number] Admin: 09/21/18 12:07 Dose: 1 appln Documented by: [id number] Admin: 09/21/18 08:43 Dose: 1 appln Documented by: [id number] Admin: 09/20/18 20:57 Dose: 1 appln Documented by: [id number] Admin: 09/20/18 18:34 Dose: 1 appln Documented by: [id number] Admin: 09/20/18 16:48 Dose: 1 appln Documented by: [id number] Admin: 09/20/18 11:41 Dose: 1 appln Documented by: [id number] Admin: 09/19/18 21:21 Dose: 1 appln Documented by: [id number] Admin: 09/19/18 17:19 Dose: 1 appln Documented by: [id number] Admin: 09/19/18 12:33 Dose: 1 appln Documented by: [id number] Fish Oil (Foley-3 (Purified Fish Oil)) [facility] [place] Stop: 10/14/18 08:59 Last Admin: 09/25/18 08:59 Dose: 1 gm Documented by: [id number] Admin: 09/24/18 09:02 Dose: 1 gm Documented by: [id number] Admin: 09/23/18 07:45 Dose: 1 gm Documented by: [id number] Admin: 09/22/18 08:02 Dose: 1 gm Documented by: [id number] Admin: 09/21/18 08:44 Dose: 1 gm Documented by: [id number] Admin: 09/20/18 09:16 Dose: 1 gm Documented by: [id number] Admin: 09/19/18 08:47 Dose: 1 gm Documented by: [id number] Admin: 09/18/18 07:55 Dose: 1 gm Documented by: [id number] Admin: 09/17/18 08:08 Dose: 1 gm Documented by: [id number] Admin: 09/16/18 08:06 Dose: 1 gm Documented by: [id number] Admin: 09/15/18 08:47 Dose: 1 gm Documented by: [id number] Admin: 09/14/18 07:56 Dose: 1 gm Documented by: [id number] Gemfibrozil (Lopid) 600 mg PO QAM MALIK Stop: 10/14/18 08:59 Last Admin: 09/25/18 08:58 Dose: 600 mg Documented by: [id number] Admin: 09/24/18 09:03 Dose: 600 mg Documented by: [id number] Admin: 09/23/18 07:44 Dose: 600 mg Documented by: [id number] Admin: 09/22/18 08:02 Dose: 600 mg Documented by: [id number] Admin: 09/21/18 08:44 Dose: 600 mg Documented by: [id number] Admin: 09/20/18 10:35 Dose: 600 mg Documented by: [id number] Admin: 09/19/18 08:45 Dose: 600 mg Documented by: [id number] Admin: 09/18/18 07:55 Dose: 600 mg Documented by: [id number] Admin: 09/17/18 08:08 Dose: 600 mg Documented by: [id number] Admin: 09/16/18 08:06 Dose: 600 mg Documented by: [id number] Admin: 09/15/18 08:48 Dose: 600 mg Documented by: [id number] Admin: 09/14/18 07:55 Dose: 600 mg Documented by: [id number] Heparin Sodium (Porcine) (Heparin Sodium (Porcine)) 5,000 units SQ Q12 MALIK Stop: 10/10/18 20:59 Last Admin: 09/25/18 08:59 Dose: 5,000 units Documented by: [id number] Cosigned by: [id number] Admin: 09/24/18 20:27 Dose: 5,000 units Documented by: [id number] Cosigned by: [id number] Admin: 09/24/18 09:02 Dose: 5,000 units Documented by: [id number] Cosigned by: [id number] Admin: 09/23/18 20:44 Dose: 5,000 units Documented by: [id number] Cosigned by: [id number] Admin: 09/23/18 07:46 Dose: 5,000 units Documented by: [id number] Cosigned by: [id number] Admin: 09/22/18 20:27 Dose: 5,000 units Documented by: [id number] Cosigned by: [id number] Admin: 09/22/18 08:02 Dose: 5,000 units Documented by: [id number] Cosigned by: [id number] Admin: 09/21/18 20:08 Dose: 5,000 units Documented by: [id number] Cosigned by: [id number] Admin: 09/21/18 08:44 Dose: 5,000 units Documented by: [id number] Cosigned by: [id number] Admin: 09/20/18 20:55 Dose: 5,000 units Documented by: [id number] Cosigned by: [id number] Admin: 09/20/18 13:00 Dose: 5,000 units Documented by: [id number] Cosigned by: [id number] Admin: 09/19/18 21:16 Dose: 5,000 units Documented by: [id number] Cosigned by: [id number] Admin: 09/19/18 08:44 Dose: 5,000 units Documented by: [id number] Cosigned by: [id number] Admin: 09/18/18 23:47 Dose: 5,000 units Documented by: [id number] Cosigned by: [id number] Admin: 09/18/18 07:55 Dose: 5,000 units Documented by: [id number] Cosigned by: [id number] Admin: 09/17/18 20:34 Dose: 5,000 units Documented by: [id number] Cosigned by: [id number] Admin: 09/17/18 08:09 Dose: 5,000 units Documented by: [id number] Cosigned by: [id number] Admin: 09/16/18 20:34 Dose: 5,000 units Documented by: [id number] Cosigned by: [id number] Admin: 09/16/18 08:06 Dose: 5,000 units Documented by: [id number] Cosigned by: [id number] Admin: 09/15/18 20:35 Dose: 5,000 units Documented by: [id number] Cosigned by: [id number] Admin: 09/15/18 08:41 Dose: 5,000 units Documented by: [id number] Cosigned by: [id number] Admin: 09/14/18 21:03 Dose: 5,000 units Documented by: [id number] Cosigned by: [id number] Admin: 09/14/18 07:56 Dose: 5,000 units Documented by: [id number] Cosigned by: [id number] Admin: 09/13/18 22:05 Dose: 5,000 units Documented by: [id number] Cosigned by: [id number] Admin: 09/13/18 08:26 Dose: 5,000 units Documented by: [id number] Cosigned by: [id number] Admin: 09/12/18 20:33 Dose: 5,000 units Documented by: [id number] Cosigned by: [id number] Admin: 09/12/18 08:38 Dose: 5,000 units Documented by: [id number] Cosigned by: [id number] Admin: 09/11/18 21:17 Dose: 5,000 units Documented by: [id number] Cosigned by: [id number] Admin: 09/11/18 07:31 Dose: 5,000 units Documented by: [id number] Cosigned by: [id number] Admin: 09/10/18 22:31 Dose: 5,000 units Documented by: [id number] Cosigned by: [id number] Acetaminophen (Ofirmev) 65 mls @ 200 mls/hr IV Q8H PRN; Protocol PRN Reason: Fever Stop: 10/15/18 08:44 Last Infusion: 09/25/18 09:55 Dose: 0 mls/hr Documented by: [id number] Admin: 09/25/18 09:32 Dose: 200 mls/hr Documented by: [id number] Infusion: 09/24/18 08:01 Dose: 0 mls/hr Documented by: [id number] Admin: 09/24/18 07:41 Dose: 200 mls/hr Documented by: [id number] Infusion: 09/23/18 21:15 Dose: 0 mls/hr Documented by: [id number] Admin: 09/23/18 20:55 Dose: 200 mls/hr Documented by: [id number] Infusion: 09/20/18 00:56 Dose: 0 mls/hr Documented by: [id number] Admin: 09/19/18 23:48 Dose: 200 mls/hr Documented by: [id number] Infusion: 09/17/18 19:28 Dose: 0 mls/hr Documented by: [id number] Admin: 09/17/18 19:08 Dose: 200 mls/hr Documented by: [id number] Infusion: 09/16/18 20:53 Dose: 0 mls/hr Documented by: [id number] Admin: 09/16/18 20:33 Dose: 200 mls/hr Documented by: [id number] Ertapenem 500 mg/ Sodium (Chloride) 55 mls @ 100 mls/hr IV Q24H MALIK Stop: 10/02/18 14:59 Last Admin: 09/25/18 16:16 Dose: 100 mls/hr Documented by: [id number] Infusion: 09/24/18 16:53 Dose: 0 mls/hr Documented by: [id number] Admin: 09/24/18 15:51 Dose: 100 mls/hr Documented by: [id number] Infusion: 09/23/18 15:16 Dose: 0 mls/hr Documented by: [id number] Admin: 09/23/18 14:28 Dose: 100 mls/hr Documented by: [id number] Infusion: 09/22/18 15:55 Dose: 0 mls/hr Documented by: [id number] Admin: 09/22/18 15:16 Dose: 100 mls/hr Documented by: [id number] Insulin Aspart (Novolog Flexpen) 0 units SC ACHS MALIK; Protocol Stop: 10/24/18 20:59 Last Admin: 09/25/18 13:20 Dose: Not Given Documented by: [id number] Cosigned by: [id number] Admin: 09/25/18 08:59 Dose: Not Given Documented by: [id number] Cosigned by: [id number] Admin: 09/24/18 21:41 Dose: Not Given Documented by: [id number] Cosigned by: [id number] Admin: 09/24/18 18:11 Dose: Not Given Documented by: [id number] Cosigned by: [id number] Admin: 09/24/18 12:28 Dose: 10 units Documented by: [id number] Cosigned by: [id number] Admin: 09/24/18 08:53 Dose: Not Given Documented by: [id number] Cosigned by: [id number] Admin: 09/23/18 20:45 Dose: Not Given Documented by: [id number] Cosigned by: [id number] Admin: 09/23/18 17:00 Dose: Not Given Documented by: [id number] Cosigned by: [id number] Admin: 09/23/18 11:52 Dose: 2 units Documented by: [id number] Cosigned by: [id number] Admin: 09/23/18 07:50 Dose: 9 units Documented by: [id number] Cosigned by: [id number] Admin: 09/22/18 20:27 Dose: Not Given Documented by: [id number] Cosigned by: [id number] Admin: 09/22/18 17:51 Dose: Not Given Documented by: [id number] Cosigned by: [id number] Admin: 09/22/18 12:37 Dose: 8 units Documented by: [id number] Cosigned by: [id number] Admin: 09/22/18 08:03 Dose: 5 units Documented by: [id number] Cosigned by: [id number] Admin: 09/21/18 20:18 Dose: 3 units Documented by: [id number] Cosigned by: [id number] Admin: 09/21/18 17:10 Dose: 11 units Documented by: [id number] Cosigned by: [id number] Admin: 09/21/18 12:06 Dose: 10 units Documented by: [id number] Cosigned by: [id number] Admin: 09/21/18 08:41 Dose: 18 units Documented by: [id number] Cosigned by: [id number] Admin: 09/20/18 20:57 Dose: Not Given Documented by: [id number] Cosigned by: [id number] Admin: 09/20/18 16:51 Dose: 16 units Documented by: [id number] Cosigned by: [id number] Admin: 09/20/18 13:00 Dose: 5 units Documented by: [id number] Cosigned by: [id number] Admin: 09/20/18 08:56 Dose: 14 units Documented by: [id number] Cosigned by: [id number] Admin: 09/19/18 21:21 Dose: 3 units Documented by: [id number] Cosigned by: [id number] Admin: 09/19/18 17:23 Dose: 31 units Documented by: [id number] Cosigned by: [id number] Admin: 09/19/18 12:32 Dose: 16 units Documented by: [id number] Cosigned by: [id number] Admin: 09/19/18 08:43 Dose: 15 units Documented by: [id number] Cosigned by: [id number] Admin: 09/18/18 21:42 Dose: 8 units Documented by: [id number] Cosigned by: [id number] Admin: 09/18/18 17:04 Dose: 10 units Documented by: [id number] Cosigned by: [id number] Admin: 09/18/18 12:25 Dose: 4 units Documented by: [id number] Cosigned by: [id number] Admin: 09/18/18 07:57 Dose: 5 units Documented by: [id number] Cosigned by: [id number] Admin: 09/17/18 20:34 Dose: 2 units Documented by: [id number] Cosigned by: [id number] Lactobacillus Acidophilus (Floranex) 4 tab PO QIDM MALIK Stop: 10/19/18 11:59 Last Admin: 09/25/18 16:26 Dose: 4 tab Documented by: [id number] Admin: 09/25/18 13:05 Dose: 4 tab Documented by: [id number] Admin: 09/25/18 08:59 Dose: 4 tab Documented by: [id number] Admin: 09/24/18 20:53 Dose: Not Given Documented by: [id number] Admin: 09/24/18 17:18 Dose: Not Given Documented by: [id number] Admin: 09/24/18 11:43 Dose: 4 tab Documented by: [id number] Admin: 09/24/18 09:00 Dose: 4 tab Documented by: [id number] Admin: 09/23/18 20:44 Dose: 4 tab Documented by: [id number] Admin: 09/23/18 17:01 Dose: 4 tab Documented by: [id number] Admin: 09/23/18 11:50 Dose: 4 tab Documented by: [id number] Admin: 09/23/18 07:45 Dose: 4 tab Documented by: [id number] Admin: 09/22/18 20:24 Dose: 4 tab Documented by: [id number] Admin: 09/22/18 17:52 Dose: 4 tab Documented by: [id number] Admin: 09/22/18 12:38 Dose: 4 tab Documented by: [id number] Admin: 09/22/18 07:56 Dose: 4 tab Documented by: [id number] Admin: 09/21/18 20:05 Dose: 4 tab Documented by: [id number] Admin: 09/21/18 17:09 Dose: 4 tab Documented by: [id number] Admin: 09/21/18 12:05 Dose: 4 tab Documented by: [id number] Admin: 09/21/18 08:44 Dose: 4 tab Documented by: [id number] Admin: 09/20/18 20:54 Dose: 4 tab Documented by: [id number] Admin: 09/20/18 16:49 Dose: 4 tab Documented by: [id number] Admin: 09/20/18 13:02 Dose: Not Given Documented by: [id number] Admin: 09/20/18 09:14 Dose: 4 tab Documented by: [id number] Admin: 09/19/18 21:16 Dose: 4 tab Documented by: [id number] Admin: 09/19/18 17:20 Dose: 4 tab Documented by: [id number] Admin: 09/19/18 12:33 Dose: 4 tab Documented by: [id number] Levothyroxine Sodium (Synthroid) 75 mcg PO DAILYBB MALIK Stop: 10/14/18 06:29 Last Admin: 09/25/18 06:05 Dose: 75 mcg Documented by: [id number] Admin: 09/24/18 05:43 Dose: 75 mcg Documented by: [id number] Admin: 09/23/18 05:31 Dose: 75 mcg Documented by: [id number] Admin: 09/22/18 05:21 Dose: 75 mcg Documented by: [id number] Admin: 09/21/18 06:26 Dose: 75 mcg Documented by: [id number] Admin: 09/20/18 05:54 Dose: 75 mcg Documented by: [id number] Admin: 09/19/18 06:49 Dose: 75 mcg Documented by: [id number] Admin: 09/18/18 05:28 Dose: 75 mcg Documented by: [id number] Admin: 09/17/18 06:37 Dose: 75 mcg Documented by: [id number] Admin: 09/16/18 05:59 Dose: 75 mcg Documented by: [id number] Admin: 09/15/18 06:38 Dose: 75 mcg Documented by: [id number] Admin: 09/14/18 06:29 Dose: 75 mcg Documented by: [id number] Metoprolol Succinate (Toprol Xl) 25 mg PO QPM MALIK Stop: 10/15/18 20:59 Last Admin: 09/24/18 20:50 Dose: 25 mg Documented by: [id number] Admin: 09/23/18 20:44 Dose: 25 mg Documented by: [id number] Admin: 09/22/18 20:24 Dose: 25 mg Documented by: [id number] Admin: 09/21/18 20:08 Dose: 25 mg Documented by: [id number] Admin: 09/20/18 20:57 Dose: 25 mg Documented by: [id number] Admin: 09/19/18 21:17 Dose: 25 mg Documented by: [id number] Admin: 09/18/18 23:47 Dose: 25 mg Documented by: [id number] Admin: 09/17/18 20:35 Dose: 25 mg Documented by: [id number] Admin: 09/16/18 20:34 Dose: 25 mg Documented by: [id number] Admin: 09/15/18 20:35 Dose: 25 mg Documented by: [id number] Vitamin D (Vitamin D3) 2,000 units PO MoWeFr@0900 MALIK Stop: 10/15/18 08:59 Last Admin: 09/24/18 09:03 Dose: 2,000 units Documented by: [id number] Admin: 09/22/18 08:02 Dose: 2,000 units Documented by: [id number] Admin: 09/19/18 08:46 Dose: 2,000 units Documented by: [id number] Admin: 09/17/18 08:08 Dose: 2,000 units Documented by: [id number] Admin: 09/15/18 08:48 Dose: 2,000 units Documented by: [id number] PG Care Time/CCT Total # of Minutes Spent Total Time Spent with Patient: Total time spent is greater than 50% in coordination of care (as documented) at patient's floor/unit and/or counseling patient: Resident Activity Tracking Resident Involvement: Resident Care Provided Care Provided: Adult Hospital Medicine (1) Pancreatitis Acute pancreatitis complication: unspecified Chronicity: acute Pancreatitis type: other Qualified Code(s): K85.80 - Other acute pancreatitis without necrosis or infection (2) Nausea & vomiting Vomiting Intractability: unspecified Vomiting type: unspecified Qualified Code(s): R11.2 - Nausea with vomiting, unspecified (3) Abdominal pain Abdominal location: unspecified location Qualified Code(s): R10.9 - Unspecified abdominal pain
[2018-09-25 15:39] LABS: BUN Creatinine Ratio 46.2 (10-20); Calcium 8.4 mg/dl (8.5-10.1); Creatinine Clr Calc Pharmacy 24.8 ml/min; Est GFR (African American) 22.8; Est GFR (Non-African American) 19.7
[2018-09-25] MEDS: ERTAPENEM SODIUM 500 MG in SODIUM CHLORIDE 0.9% 50 ML IV SCH (16:16)
[2018-09-25] MEDS ORDERED: FUROSEMIDE 40 MG/4 ML VIAL IV STA (17:53)
[2018-09-25] MEDS ORDERED: FUROSEMIDE 40 MG in SYRINGE 0 ML IV STA (18:44)
[2018-09-25] MEDS: METOPROLOL SUCC 25MG EXT REL TAB PO SCH (20:19)
[2018-09-25] MEDS: INSULIN GLARGINE SOLOSTAR 100 UNITS/ML 3 ML PEN SC SCH (20:48)
[2018-09-25] MEDS: MoRPHine SULFATE 4 MG/ML 1 ML CARP\\VIAL IV PRN ×2 (21:02→23:40)
[2018-09-26] MEDS: LEVOTHYROXINE SODIUM 75 MCG TABLET PO SCH (06:13)
[2018-09-26] MEDS: POLYETHYLENE (MIRALAX) 17 GM PACK PO PRN (06:14)
[2018-09-26 07:02] LABS: Hematocrit (blood only) 26.6 % (37-47); Hemoglobin 8.7 g/dL (12.0-16.0); Mean Corpuscular Hgb Conc 32.7 g/dL (32-36); Platelet Count 248 K/uL (130-400); RDW Coefficient of Variation 14.3 % (11.5-14.5); RDW Standard Deviation 47.9 fL (36.4-46.3); Red Blood Count 2.86 M/uL (4.2-5.4); White Blood Count 5.59 K/uL (4.8-10.8)
--- NOTE | 2018-09-26 07:15 | Family Medicine Progress Note ---
Date of Service September 26, 2018 Assessment & Plan (1) Pancreatitis: 83F was admitted on 10 September 2018 for nausea, abdominal pain, and distention. Found to have acute pancreatitis. Pt was started on Zosyn which was narrowed to a cephalosporin on 09/13/18 and then added Levoquin on 09/16/18 which was broadened to Vanc + Imipenem on 09/19/18 WBC elevation, fevers. Blood cultures repeated on 09/10/18 and ID consulted on that day as well for persistent fevers. Currently on Imipenem providing coverage for GI microbial activity from pancreatitis. PMHx: HTN, HLD (TAG ~200), DM2, neuropathy, hypothyroidism: Prior partial thyroidectomy, breast cancer s/p mastectomy in 2000. Morbid obesity (BMI 40). 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 Acute pancreatitis likely 2/2 cholelithiasis Initial worsening of abdominal pain symptoms after admission (now no complaints), but repeat CT on 09/14 showed persistent pancreatitis without cyst or necrosis. Empiric abx (initially Zosyn) started and narrowed to Cephalosporin on 09/13/18 and then re-broadened on 09/19/18. Repeat CT Scan on 09/20/18 showed no acute changes however GB consistently inflamed. Completed 4 total doses of Imipenem. Surgery and GI following, plan cholecystectomy once acute inflammation from pancreatitis has resolved. Tolerating meals without pain or complications. Repeat blood cultures negative. Slow and indolent recovery, Day #16 of admission. Imipenem for cholecystitis - completed 4 doses of abx to date. No complaints of abdominal pain this morning. Not currently on IVFs Diffuse Edema Pt with significant 17kg weight gain during admission likely all 3rd spaced given oliguria. Finally on 09/25, there were signs of improvement with about 2.5kg weight loss with one time doses of Lasix. On 09/25 24-hr cum I&O, her urine output has increased significantly and had a 24-hr negative balance of 2645mL. On 09/26, continued to have significant output with balance of -2505mL and further decrease in weight to 118.3kg. 09/26 received Lasix 80 IV x 1 dose then received an additional Lasix 40mg IV later in the day. Encourage ambulation and incentive spirometry. With numerous conversations provided. Will continue to provide coaching to patient to encourage ambulation /activity. Compression stockings were ordered but appears patient unable to tolerate. On Boost supplements. Need to increase protein intake to help increase osmotic pull into vasculature system. Boost supplements have been added TID. Will contact nutrition about their thoughts if TPN would be of benefit to patient. This was discussed with son who agrees with treatment plan. If nutrition agrees and we move forward with TPN, Dana will need PICC line access. Acute on chronic CKD stage IV Baseline Cr ~1.7-2.0. Creatinine 09/22 3.02; 09/23 2.77; 09/24 2.88; Improved to 2.25 on 09/25 AM and then repeat 3pm showed 2.25. 09/26 improved further to 1.99. Nephrology previously gave Albumin. will follow up on current recs. No current indication for dialysis per nephro. Left Arm Swelling Localized swelling with mild tenderness to left anterior just distal to antecubital fossa with no overlying erythema, increased warmth, or signs of infection; appears consistent with hematoma from IV access attempts vs. infiltration of IV site vs. thrombus. US ordered for further investigation. Atrial fibrillation, new Converted with one dose of IV Lopressor Continue PO metoprolol 25 mg daily CHADVASC 9.8%. On dvt proph anticoagulation, no indication for bridge, will address adding Vitk antagonist vs NOAC at discharge. Bilateral knee pain - chronic Severe and prevents patients from wanting to be moved in bed, let alone engaging in PT/OT Ordered voltaren gel to be applied bilaterally QID Advised nursing to use IV morphine 20-30min prior to moving and therapy Considerations that decreased alertness could be contributed to Morphine. She appears slightly more alert today and there wasn't note of receiving Morphine since last night. But difficult as want to treat pain in order for her to increase activity and also with goal to keep patient comfortable. Possible pneumonia on CT Scan, 09/19/[address] results with Dr. Cotter, likely atelectasis and not pneumonia. No concerns for ARDS. Pt is no respiratory distress. Abx as above. Diabetes, neuropathy At home, on insulin and gabapentin 200 mg p.o. nightly Hold gabapentin due to renal issues Previous to 09/24, Insulin tightened to Lantus 35BID and tighter ISS scale given patient now eating better - She had glucose 09/24 morning of 57 for which nursing gave IV Dextrose which improved to value greater than 100. - On 09/24, Only required 11 of Novolog on 09/23 with Lantus 35 units BID. Discussed with pharmacy and placed consult for team approach to manage. Agree with discussion of holding Lantus on 09/24 morning and adjusting basal dosing. Acute on chronic anemia Recent comparisons in Hb 10's. Continue monitoring HTN, hypertriglyceridemia Continue ASA and gemfibrozil. Hold olmesartan for kidney fxn Hypothyroidism Prior partial thyroidectomy. Continue levothyroxine Breast cancer s/p mastectomy in 2000 Diet: Low-fat diet. DVT proph: Heparin twice daily. PT/OT: Ordered. Dispo: Admitted to PCU telemetry. Code status: DNR. (2) Cellulitis of left lower extremity: Discontinued Vancomycin IV. No signs of current active infection today, no increase in warmth, erythema now most likely post-inflammatory hyper pigmentation. (3) Cholelithiasis: (4) Abdominal pain: (5) Nausea & vomiting: (6) Hypothyroidism (acquired): (7) Diabetes mellitus: Currently consulting pharmacy for hyperglycemic management and following recs. (8) Chronic anemia: Supervising Physician Co-Signing Physician Notes Attending attestation Pt seen and examined in concert with Dr. Soliz. In agreement with the documented findings as noted in the resident documentation with any exceptions or additions as noted here. She is awake and alert during our examination. She remains quite edematous. She complains of being tired; she denies abdominal pain. Acute pancreatitis with underlying cholelithiasis surgical consultation appreciated No acute surgical intervention at this point Will need cholecystectomy when she recovers from her acute infection Severe edema in the setting of Acute on CKDIV Continue diuresis and monitor creatinine Hypoalbuminemia Discussed possibility of TPN although IV team was unable to find a suitable site for PICC line TPN through peripheral line would require a greater fluid and if his run through PICC line so this may be self-defeating We will continue to with oral boost; if she continues to diuresis may be able to reassess for PICC line as her edema improves She is taking just enough orally at this point that I would not pursue a central line to facilitate TPN, although we will continue to reassess all options based on her progress Else see resident documentation as noted. Subjective Dana continues to feel tired. She has had poor appetite for the past two days. She denies chest pain, shortness of breath, fever, chills, nausea, vomiting. No acute events reported overnight. Nursing reported increase swelling in left forearm. Physical Exam Constitutional: + ill appearing, + morbidly obese and cooperative Eyes: + anicteric sclerae and EOM intact bilaterally Neck: trachea midline Respiratory: no respiratory distress Auscultation: + diminished lung sounds (at bases, improved air movement from previous to apices bilaterally.) Cardiovascular: Rate/Rhythm: regular rate and regular rhythm Extremities: + edema Gastrointestinal (Abdomen): Inspection/Auscultation: + abdomen distended and normal bowel sounds Percussion/Palpation: abdomen nontender, no guarding and abdomen not rigid Musculoskeletal: localized swelling with mild tenderness to left anterior just distal to antecubital fossa with no overlying erythema or increased warmth, consistent with hematoma from IV access attempts vs. infiltration of IV site vs. thrombus. Neurologic: awake Psychiatric: Orientation: alert and oriented x 3 Affect: + flat affect Results & Data Vital Signs (Past 12 Hours) Vital Signs Temp Pulse Pulse Resp BP Pulse Ox 09/26/18 04:00 36.4 C L 68 17 115/61 98 09/26/18 00:52 64 09/25/18 23:13 36.4 C L 68 19 142/66 H 97 09/25/18 19:58 36.3 C L 73 16 145/67 H 96 Laboratory Results Laboratory Results - last 24 hr 09/25/18 09/25/18 09/25/18 15:02 16:02 20:26 WBC RBC Hgb Hct MCV MCH MCHC RDW Std Deviation RDW Coeff of Brian Plt Count MPV Sodium 141 Potassium 5.0 Chloride 111 H Carbon Dioxide 20 L Anion Gap 10.0 BUN 104 H Creatinine 2.25 H Est Cr Clr Drug Dosing 24.8 Est GFR ( Amer) 22.8 Est GFR (Non-Af Amer) 19.7 BUN/Creatinine Ratio 46.2 H Glucose 163 H POC Glucose 172 H 184 H Calcium 8.4 L Phosphorus Albumin Random Vancomycin 09/26/18 09/26/18 09/26/18 06:41 06:41 06:41 WBC 5.59 RBC 2.86 L Hgb 8.7 L Hct 26.6 L MCV 93.0 MCH 30.4 MCHC 32.7 RDW Std Deviation 47.9 H RDW Coeff of Brian 14.3 Plt Count 248 MPV 10.0 Sodium 141 Potassium 4.9 Chloride 113 H Carbon Dioxide 23 Anion Gap 5.0 BUN 103 H Creatinine 1.99 H Est Cr Clr Drug Dosing 27.6 Est GFR ( Amer) 26.4 Est GFR (Non-Af Amer) 22.8 BUN/Creatinine Ratio 51.5 H Glucose 94 POC Glucose Calcium 8.4 L Phosphorus 6.1 H Albumin 1.5 L Random Vancomycin 18.6 09/26/18 09/26/18 07:16 11:23 WBC RBC Hgb Hct MCV MCH MCHC RDW Std Deviation RDW Coeff of Brian Plt Count MPV Sodium Potassium Chloride Carbon Dioxide Anion Gap BUN Creatinine Est Cr Clr Drug Dosing Est GFR ( Amer) Est GFR (Non-Af Amer) BUN/Creatinine Ratio Glucose POC Glucose 117 H 168 H Calcium Phosphorus Albumin Random Vancomycin Medications Administered Aspirin (Ecotrin Ectab) 81 mg PO DAILY MALIK Stop: 10/14/18 08:59 Last Admin: 09/26/18 08:42 Dose: 81 mg Documented by: [id number] Admin: 09/25/18 08:59 Dose: 81 mg Documented by: [id number] Admin: 09/24/18 08:59 Dose: 81 mg Documented by: [id number] Admin: 09/23/18 07:45 Dose: 81 mg Documented by: [id number] Admin: 09/22/18 08:02 Dose: 81 mg Documented by: [id number] Admin: 09/21/18 08:44 Dose: 81 mg Documented by: [id number] Admin: 09/20/18 09:15 Dose: 81 mg Documented by: [id number] Admin: 09/19/18 08:46 Dose: 81 mg Documented by: [id number] Admin: 09/18/18 07:55 Dose: 81 mg Documented by: [id number] Admin: 09/17/18 08:09 Dose: 81 mg Documented by: [id number] Admin: 09/16/18 08:06 Dose: 81 mg Documented by: [id number] Admin: 09/15/18 08:48 Dose: 81 mg Documented by: [id number] Admin: 09/14/18 07:55 Dose: 81 mg Documented by: [id number] Dextrose (Dextrose 50%) 25 - 50 ml IV UD PRN; Protocol PRN Reason: Hypoglycemia Protocol Stop: 10/10/18 21:14 Last Admin: 09/24/18 07:36 Dose: 25 ml Documented by: [id number] Diclofenac Sodium (Voltaren 1% Top) 1 appln EXT QID MALIK Stop: 10/19/18 12:59 Last Admin: 09/26/18 12:40 Dose: 1 appln Documented by: [id number] Admin: 09/26/18 08:43 Dose: 1 appln Documented by: [id number] Admin: 09/25/18 20:19 Dose: 1 appln Documented by: [id number] Admin: 09/25/18 16:26 Dose: 1 appln Documented by: [id number] Admin: 09/25/18 13:06 Dose: 1 appln Documented by: [id number] Admin: 09/25/18 09:00 Dose: 1 appln Documented by: [id number] Admin: 09/24/18 20:53 Dose: 1 appln Documented by: [id number] Admin: 09/24/18 17:18 Dose: Not Given Documented by: [id number] Admin: 09/24/18 11:42 Dose: Not Given Documented by: [id number] Admin: 09/24/18 09:11 Dose: Not Given Documented by: [id number] Admin: 09/23/18 21:00 Dose: 1 appln Documented by: [id number] Admin: 09/23/18 17:01 Dose: 1 appln Documented by: [id number] Admin: 09/23/18 11:51 Dose: 1 appln Documented by: [id number] Admin: 09/23/18 07:48 Dose: 1 appln Documented by: [id number] Admin: 09/22/18 20:25 Dose: 1 appln Documented by: [id number] Admin: 09/22/18 17:52 Dose: 1 appln Documented by: [id number] Admin: 09/22/18 12:38 Dose: 1 appln Documented by: [id number] Admin: 09/22/18 08:04 Dose: 1 appln Documented by: [id number] Admin: 09/21/18 21:41 Dose: Not Given Documented by: [id number] Admin: 09/21/18 17:10 Dose: 1 appln Documented by: [id number] Admin: 09/21/18 12:07 Dose: 1 appln Documented by: [id number] Admin: 09/21/18 08:43 Dose: 1 appln Documented by: [id number] Admin: 09/20/18 20:57 Dose: 1 appln Documented by: [id number] Admin: 09/20/18 18:34 Dose: 1 appln Documented by: [id number] Admin: 09/20/18 16:48 Dose: 1 appln Documented by: [id number] Admin: 09/20/18 11:41 Dose: 1 appln Documented by: [id number] Admin: 09/19/18 21:21 Dose: 1 appln Documented by: [id number] Admin: 09/19/18 17:19 Dose: 1 appln Documented by: [id number] Admin: 09/19/18 12:33 Dose: 1 appln Documented by: [id number] Fish Oil ([place]-3 (Purified Fish Oil)) 1 gm PO QAM MALIK Stop: 10/14/18 08:59 Last Admin: 09/26/18 08:42 Dose: 1 gm Documented by: [id number] Admin: 09/25/18 08:59 Dose: 1 gm Documented by: [id number] Admin: 09/24/18 09:02 Dose: 1 gm Documented by: [id number] Admin: 09/23/18 07:45 Dose: 1 gm Documented by: [id number] Admin: 09/22/18 08:02 Dose: 1 gm Documented by: [id number] Admin: 09/21/18 08:44 Dose: 1 gm Documented by: [id number] Admin: 09/20/18 09:16 Dose: 1 gm Documented by: [id number] Admin: 09/19/18 08:47 Dose: 1 gm Documented by: [id number] Admin: 09/18/18 07:55 Dose: 1 gm Documented by: [id number] Admin: 09/17/18 08:08 Dose: 1 gm Documented by: [id number] Admin: 09/16/18 08:06 Dose: 1 gm Documented by: [id number] Admin: 09/15/18 08:47 Dose: 1 gm Documented by: [id number] Admin: 09/14/18 07:56 Dose: 1 gm Documented by: [id number] Gemfibrozil (Lopid) 600 mg PO QAM MALIK Stop: 10/14/18 08:59 Last Admin: 09/26/18 08:42 Dose: 600 mg Documented by: [id number] Admin: 09/25/18 08:58 Dose: 600 mg Documented by: [id number] Admin: 09/24/18 09:03 Dose: 600 mg Documented by: [id number] Admin: 09/23/18 07:44 Dose: 600 mg Documented by: [id number] Admin: 09/22/18 08:02 Dose: 600 mg Documented by: [id number] Admin: 09/21/18 08:44 Dose: 600 mg Documented by: [id number] Admin: 09/20/18 10:35 Dose: 600 mg Documented by: [id number] Admin: 09/19/18 08:45 Dose: 600 mg Documented by: [id number] Admin: 09/18/18 07:55 Dose: 600 mg Documented by: [id number] Admin: 09/17/18 08:08 Dose: 600 mg Documented by: [id number] Admin: 09/16/18 08:06 Dose: 600 mg Documented by: [id number] Admin: 09/15/18 08:48 Dose: 600 mg Documented by: [id number] Admin: 09/14/18 07:55 Dose: 600 mg Documented by: [id number] Heparin Sodium (Porcine) (Heparin Sodium (Porcine)) 5,000 units SQ Q12 MALIK Stop: 10/10/18 20:59 Last Admin: 09/26/18 08:43 Dose: 5,000 units Documented by: [id number] Cosigned by: [id number] Admin: 09/25/18 20:47 Dose: 5,000 units Documented by: [id number] Cosigned by: [id number] Admin: 09/25/18 08:59 Dose: 5,000 units Documented by: [id number] Cosigned by: [id number] Admin: 09/24/18 20:27 Dose: 5,000 units Documented by: [id number] Cosigned by: [id number] Admin: 09/24/18 09:02 Dose: 5,000 units Documented by: [id number] Cosigned by: [id number] Admin: 09/23/18 20:44 Dose: 5,000 units Documented by: [id number] Cosigned by: [id number] Admin: 09/23/18 07:46 Dose: 5,000 units Documented by: [id number] Cosigned by: [id number] Admin: 09/22/18 20:27 Dose: 5,000 units Documented by: [id number] Cosigned by: [id number] Admin: 09/22/18 08:02 Dose: 5,000 units Documented by: [id number] Cosigned by: [id number] Admin: 09/21/18 20:08 Dose: 5,000 units Documented by: [id number] Cosigned by: [id number] Admin: 09/21/18 08:44 Dose: 5,000 units Documented by: [id number] Cosigned by: [id number] Admin: 09/20/18 20:55 Dose: 5,000 units Documented by: [id number] Cosigned by: [id number] Admin: 09/20/18 13:00 Dose: 5,000 units Documented by: [id number] Cosigned by: [id number] Admin: 09/19/18 21:16 Dose: 5,000 units Documented by: [id number] Cosigned by: [id number] Admin: 09/19/18 08:44 Dose: 5,000 units Documented by: [id number] Cosigned by: [id number] Admin: 09/18/18 23:47 Dose: 5,000 units Documented by: [id number] Cosigned by: [id number] Admin: 09/18/18 07:55 Dose: 5,000 units Documented by: [id number] Cosigned by: [id number] Admin: 09/17/18 20:34 Dose: 5,000 units Documented by: [id number] Cosigned by: [id number] Admin: 09/17/18 08:09 Dose: 5,000 units Documented by: [id number] Cosigned by: [id number] Admin: 09/16/18 20:34 Dose: 5,000 units Documented by: [id number] Cosigned by: [id number] Admin: 09/16/18 08:06 Dose: 5,000 units Documented by: [id number] Cosigned by: [id number] Admin: 09/15/18 20:35 Dose: 5,000 units Documented by: [id number] Cosigned by: [id number] Admin: 09/15/18 08:41 Dose: 5,000 units Documented by: [id number] Cosigned by: [id number] Admin: 09/14/18 21:03 Dose: 5,000 units Documented by: [id number] Cosigned by: [id number] Admin: 09/14/18 07:56 Dose: 5,000 units Documented by: [id number] Cosigned by: [id number] Admin: 09/13/18 22:05 Dose: 5,000 units Documented by: [id number] Cosigned by: [id number] Admin: 09/13/18 08:26 Dose: 5,000 units Documented by: [id number] Cosigned by: [id number] Admin: 09/12/18 20:33 Dose: 5,000 units Documented by: [id number] Cosigned by: [id number] Admin: 09/12/18 08:38 Dose: 5,000 units Documented by: [id number] Cosigned by: [id number] Admin: 09/11/18 21:17 Dose: 5,000 units Documented by: [id number] Cosigned by: [id number] Admin: 09/11/18 07:31 Dose: 5,000 units Documented by: [id number] Cosigned by: [id number] Admin: 09/10/18 22:31 Dose: 5,000 units Documented by: [id number] Cosigned by: [id number] Acetaminophen (Ofirmev) 65 mls @ 200 mls/hr IV Q8H PRN; Protocol PRN Reason: Fever Stop: 10/15/18 08:44 Last Infusion: 09/25/18 21:26 Dose: 0 mls/hr Documented by: [id number] Admin: 09/25/18 19:42 Dose: 200 mls/hr Documented by: [id number] Infusion: 09/25/18 09:55 Dose: 0 mls/hr Documented by: [id number] Admin: 09/25/18 09:32 Dose: 200 mls/hr Documented by: [id number] Infusion: 09/24/18 08:01 Dose: 0 mls/hr Documented by: [id number] Admin: 09/24/18 07:41 Dose: 200 mls/hr Documented by: [id number] Infusion: 09/23/18 21:15 Dose: 0 mls/hr Documented by: [id number] Admin: 09/23/18 20:55 Dose: 200 mls/hr Documented by: [id number] Infusion: 09/20/18 00:56 Dose: 0 mls/hr Documented by: [id number] Admin: 09/19/18 23:48 Dose: 200 mls/hr Documented by: [id number] Infusion: 09/17/18 19:28 Dose: 0 mls/hr Documented by: [id number] Admin: 09/17/18 19:08 Dose: 200 mls/hr Documented by: [id number] Infusion: 09/16/18 20:53 Dose: 0 mls/hr Documented by: [id number] Admin: 09/16/18 20:33 Dose: 200 mls/hr Documented by: [id number] Ertapenem 500 mg/ Sodium (Chloride) 55 mls @ 100 mls/hr IV Q24H MALIK Stop: 10/02/18 14:59 Last Infusion: 09/25/18 17:56 Dose: 0 mls/hr Documented by: [id number] Admin: 09/25/18 16:16 Dose: 100 mls/hr Documented by: [id number] Infusion: 09/24/18 16:53 Dose: 0 mls/hr Documented by: [id number] Admin: 09/24/18 15:51 Dose: 100 mls/hr Documented by: [id number] Infusion: 09/23/18 15:16 Dose: 0 mls/hr Documented by: [id number] Admin: 09/23/18 14:28 Dose: 100 mls/hr Documented by: [id number] Infusion: 09/22/18 15:55 Dose: 0 mls/hr Documented by: [id number] Admin: 09/22/18 15:16 Dose: 100 mls/hr Documented by: [id number] Insulin Aspart (Novolog Flexpen) 0 units SC ACHS MALIK; Protocol Stop: 10/24/18 20:59 Last Admin: 09/26/18 12:40 Dose: 5 units Documented by: [id number] Cosigned by: [id number] Admin: 09/26/18 08:40 Dose: 7 units Documented by: [id number] Cosigned by: [id number] Admin: 09/25/18 20:51 Dose: 2 units Documented by: [id number] Cosigned by: [id number] Admin: 09/25/18 18:00 Dose: 9 units Documented by: [id number] Cosigned by: [id number] Admin: 09/25/18 13:20 Dose: Not Given Documented by: [id number] Cosigned by: [id number] Admin: 09/25/18 08:59 Dose: Not Given Documented by: [id number] Cosigned by: [id number] Admin: 09/24/18 21:41 Dose: Not Given Documented by: [id number] Cosigned by: [id number] Admin: 09/24/18 18:11 Dose: Not Given Documented by: [id number] Cosigned by: [id number] Admin: 09/24/18 12:28 Dose: 10 units Documented by: [id number] Cosigned by: [id number] Admin: 09/24/18 08:53 Dose: Not Given Documented by: [id number] Cosigned by: [id number] Admin: 09/23/18 20:45 Dose: Not Given Documented by: [id number] Cosigned by: [id number] Admin: 09/23/18 17:00 Dose: Not Given Documented by: [id number] Cosigned by: [id number] Admin: 09/23/18 11:52 Dose: 2 units Documented by: [id number] Cosigned by: [id number] Admin: 09/23/18 07:50 Dose: 9 units Documented by: [id number] Cosigned by: [id number] Admin: 09/22/18 20:27 Dose: Not Given Documented by: [id number] Cosigned by: [id number] Admin: 09/22/18 17:51 Dose: Not Given Documented by: [id number] Cosigned by: [id number] Admin: 09/22/18 12:37 Dose: 8 units Documented by: [id number] Cosigned by: [id number] Admin: 09/22/18 08:03 Dose: 5 units Documented by: [id number] Cosigned by: [id number] Admin: 09/21/18 20:18 Dose: 3 units Documented by: [id number] Cosigned by: [id number] Admin: 09/21/18 17:10 Dose: 11 units Documented by: [id number] Cosigned by: [id number] Admin: 09/21/18 12:06 Dose: 10 units Documented by: [id number] Cosigned by: [id number] Admin: 09/21/18 08:41 Dose: 18 units Documented by: [id number] Cosigned by: [id number] Admin: 09/20/18 20:57 Dose: Not Given Documented by: [id number] Cosigned by: [id number] Admin: 09/20/18 16:51 Dose: 16 units Documented by: [id number] Cosigned by: [id number] Admin: 09/20/18 13:00 Dose: 5 units Documented by: [id number] Cosigned by: [id number] Admin: 09/20/18 08:56 Dose: 14 units Documented by: [id number] Cosigned by: [id number] Admin: 09/19/18 21:21 Dose: 3 units Documented by: [id number] Cosigned by: [id number] Admin: 09/19/18 17:23 Dose: 31 units Documented by: [id number] Cosigned by: [id number] Admin: 09/19/18 12:32 Dose: 16 units Documented by: [id number] Cosigned by: [id number] Admin: 09/19/18 08:43 Dose: 15 units Documented by: [id number] Cosigned by: [id number] Admin: 09/18/18 21:42 Dose: 8 units Documented by: [id number] Cosigned by: [id number] Admin: 09/18/18 17:04 Dose: 10 units Documented by: [id number] Cosigned by: [id number] Admin: 09/18/18 12:25 Dose: 4 units Documented by: [id number] Cosigned by: [id number] Admin: 09/18/18 07:57 Dose: 5 units Documented by: [id number] Cosigned by: [id number] Admin: 09/17/18 20:34 Dose: 2 units Documented by: [id number] Cosigned by: [id number] Insulin Glargine (Lantus Solostar Pen) 0 units SC HS MALIK; Protocol Stop: 10/25/18 20:59 Last Admin: 09/25/18 20:48 Dose: 45 units Documented by: [id number] Cosigned by: [id number] Lactobacillus Acidophilus (Floranex) 4 tab PO QIDM MALIK Stop: 10/19/18 11:59 Last Admin: 09/26/18 12:40 Dose: 4 tab Documented by: [id number] Admin: 09/26/18 08:40 Dose: 4 tab Documented by: [id number] Admin: 09/25/18 20:18 Dose: 4 tab Documented by: [id number] Admin: 09/25/18 16:26 Dose: 4 tab Documented by: [id number] Admin: 09/25/18 13:05 Dose: 4 tab Documented by: [id number] Admin: 09/25/18 08:59 Dose: 4 tab Documented by: [id number] Admin: 09/24/18 20:53 Dose: Not Given Documented by: [id number] Admin: 09/24/18 17:18 Dose: Not Given Documented by: [id number] Admin: 09/24/18 11:43 Dose: 4 tab Documented by: [id number] Admin: 09/24/18 09:00 Dose: 4 tab Documented by: [id number] Admin: 09/23/18 20:44 Dose: 4 tab Documented by: [id number] Admin: 09/23/18 17:01 Dose: 4 tab Documented by: [id number] Admin: 09/23/18 11:50 Dose: 4 tab Documented by: [id number] Admin: 09/23/18 07:45 Dose: 4 tab Documented by: [id number] Admin: 09/22/18 20:24 Dose: 4 tab Documented by: [id number] Admin: 09/22/18 17:52 Dose: 4 tab Documented by: [id number] Admin: 09/22/18 12:38 Dose: 4 tab Documented by: [id number] Admin: 09/22/18 07:56 Dose: 4 tab Documented by: [id number] Admin: 09/21/18 20:05 Dose: 4 tab Documented by: [id number] Admin: 09/21/18 17:09 Dose: 4 tab Documented by: [id number] Admin: 09/21/18 12:05 Dose: 4 tab Documented by: [id number] Admin: 09/21/18 08:44 Dose: 4 tab Documented by: [id number] Admin: 09/20/18 20:54 Dose: 4 tab Documented by: [id number] Admin: 09/20/18 16:49 Dose: 4 tab Documented by: [id number] Admin: 09/20/18 13:02 Dose: Not Given Documented by: [id number] Admin: 09/20/18 09:14 Dose: 4 tab Documented by: [id number] Admin: 09/19/18 21:16 Dose: 4 tab Documented by: [id number] Admin: 09/19/18 17:20 Dose: 4 tab Documented by: [id number] Admin: 09/19/18 12:33 Dose: 4 tab Documented by: [id number] Levothyroxine Sodium (Synthroid) 75 mcg PO DAILYBB [facility] Stop: 10/14/18 06:29 Last Admin: 09/26/18 06:13 Dose: 75 mcg Documented by: [id number] Admin: 09/25/18 06:05 Dose: 75 mcg Documented by: [id number] Admin: 09/24/18 05:43 Dose: 75 mcg Documented by: [id number] Admin: 09/23/18 05:31 Dose: 75 mcg Documented by: [id number] Admin: 09/22/18 05:21 Dose: 75 mcg Documented by: [id number] Admin: 09/21/18 06:26 Dose: 75 mcg Documented by: [id number] Admin: 09/20/18 05:54 Dose: 75 mcg Documented by: [id number] Admin: 09/19/18 06:49 Dose: 75 mcg Documented by: [id number] Admin: 09/18/18 05:28 Dose: 75 mcg Documented by: [id number] Admin: 09/17/18 06:37 Dose: 75 mcg Documented by: [id number] Admin: 09/16/18 05:59 Dose: 75 mcg Documented by: [id number] Admin: 09/15/18 06:38 Dose: 75 mcg Documented by: [id number] Admin: 09/14/18 06:29 Dose: 75 mcg Documented by: [id number] Metoprolol Succinate (Toprol Xl) 25 mg PO QPM [facility] Stop: 10/15/18 20:59 Last Admin: 09/25/18 20:19 Dose: 25 mg Documented by: [id number] Admin: 09/24/18 20:50 Dose: 25 mg Documented by: [id number] Admin: 09/23/18 20:44 Dose: 25 mg Documented by: [id number] Admin: 09/22/18 20:24 Dose: 25 mg Documented by: [id number] Admin: 09/21/18 20:08 Dose: 25 mg Documented by: [id number] Admin: 09/20/18 20:57 Dose: 25 mg Documented by: [id number] Admin: 09/19/18 21:17 Dose: 25 mg Documented by: [id number] Admin: 09/18/18 23:47 Dose: 25 mg Documented by: [id number] Admin: 09/17/18 20:35 Dose: 25 mg Documented by: [id number] Admin: 09/16/18 20:34 Dose: 25 mg Documented by: [id number] Admin: 09/15/18 20:35 Dose: 25 mg Documented by: [id number] Morphine Sulfate (Morphine Sulfate) 3 mg IV Q2H PRN PRN Reason: Moderate Pain Stop: 10/09/18 17:40 Last Admin: 09/25/18 23:40 Dose: 3 mg Documented by: [id number] Admin: 09/25/18 21:02 Dose: 3 mg Documented by: [id number] Polyethylene Glycol (Miralax Powder Packet) 17 gm PO DAILY PRN PRN Reason: Constipation Stop: 10/24/18 11:48 Last Admin: 09/26/18 06:14 Dose: 17 gm Documented by: [id number] Vitamin D (Vitamin D3) 2,000 units PO [id number] [facility] Stop: 10/15/18 08:59 Last Admin: 09/26/18 08:42 Dose: 2,000 units Documented by: [id number] Admin: 09/24/18 09:03 Dose: 2,000 units Documented by: [id number] Admin: 09/22/18 08:02 Dose: 2,000 units Documented by: [id number] Admin: 09/19/18 08:46 Dose: 2,000 units Documented by: [id number] Admin: 09/17/18 08:08 Dose: 2,000 units Documented by: [id number] Admin: 09/15/18 08:48 Dose: 2,000 units Documented by: [id number] PG Care Time/CCT Total # of Minutes Spent Total Time Spent with Patient: Total time spent is greater than 50% in coordination of care (as documented) at patient's floor/unit and/or counseling patient: Resident Activity Tracking Resident Involvement: Resident Care Provided Care Provided: Adult Hospital Medicine (1) Pancreatitis Acute pancreatitis complication: unspecified Chronicity: acute Pancreatitis type: other Qualified Code(s): K85.80 - Other acute pancreatitis without necrosis or infection (2) Nausea & vomiting Vomiting Intractability: unspecified Vomiting type: unspecified Qualified Code(s): R11.2 - Nausea with vomiting, unspecified (3) Abdominal pain Abdominal location: unspecified location Qualified Code(s): R10.9 - Unspecified abdominal pain
[2018-09-26 07:33] LABS: Albumin Level 1.5 gm/dl (3.4-5.0); BUN Creatinine Ratio 51.5 (10-20); Calcium 8.4 mg/dl (8.5-10.1); Creatinine Clr Calc Pharmacy 27.6 ml/min; Est GFR (African American) 26.4; Est GFR (Non-African American) 22.8; Phosphorus 6.1 mg/dl (2.5-4.9); Potassium 4.9 mmol/L (3.5-5.1)
[2018-09-26] MEDS: INSULIN ASPART 100 UNITS/ML 3 ML PEN SC SCH ×4 (08:40→20:27)
[2018-09-26] MEDS: LACTOBACILLUS ACIDOPHILUS (FLORANEX) TAB PO SCH ×4 (08:40→20:16)
[2018-09-26] MEDS: OMEGA-3 (PURIFIED FISH OIL) 1 GM CAP PO SCH (08:42)
[2018-09-26] MEDS: CHOLECALCIFEROL 1,000 UNITS TAB PO SCH (08:42)
[2018-09-26] MEDS: GEMFIBROZIL 600 MG TAB PO SCH (08:42)
[2018-09-26] MEDS: ASPIRIN 81 MG ECTAB PO SCH (08:42)
[2018-09-26] MEDS: DICLOFENAC SOD 1% GEL 100 GM TUBE EXT SCH ×4 (08:43→20:17)
[2018-09-26] MEDS: HEPARIN SOD 5,000 UNIT/0.5 ML VIAL SQ SCH ×2 (08:43→20:18)
[2018-09-26] MEDS ORDERED: FUROSEMIDE 80 MG in SYRINGE 0 ML IV ONE (09:15)
--- NOTE | 2018-09-26 09:34 | Nephrology Progress Note ---
Date of Service September 26, 2018 Assessment & Plan (1) Acute kidney injury: ATN related to SIRS and decreased EAV associated w/ pancreatitis. Profound hypoalbuminemia with 3rd spacing of fluid. Creatinine continues to trend toward improvement at 2.0 mg/dL today. Azotemia persists but also st arting to show signs of renal recovery. There is persistent evidence of intravascular volume depletion. TBW significantly increased but intravascularly depleted. Poor nutrition remains a significant concern. -- Additional 80 mg IV furosemide provided this morning -- Improved nutrition and mobility are essential to recovery -- Monitor volume status, UO and PRP -- BP is acceptable -- 09/[address] reviewed. Inflammation of pancreas and retroperitoneal space essentially unchanged. Rising creatinine & 3rd spacing of volume is concerning for ongoing inflammation and poor nutrition (2) Chronic kidney disease, stage IV (severe): -- Baseline creatinine ~ 1.7 - 2.0 (3) Pancreatitis: (4) Cholelithiasis: -- Surgery plan cholecystectomy once acute inflammation from pancreatitis has resolved -- Surgical follow up yesterday suggests that patient's condition will need to improve before she will be in safe condition for the OR (5) Hypertension: -- Olmesartan held due to LISA (6) Diabetes mellitus: (7) Cellulitis of left lower extremity: -- On IV Vanco & Imipenem as per ID Subjective Dana remains very lethargic and weak. No fevers or chills. Appetite poor. Tolerating Boost. Denies significant abdominal pain. Denies significant nausea. Review of Systems Review of Systems: All systems reviewed & are unremarkable except as noted in HPI & below Physical Exam Constitutional: + ill appearing, + morbidly obese, + frail appearing and + lethargic Eyes: PERRL, conjunctivae normal, anicteric sclerae ENMT: Mouth: + dry oral mucous membranes; no oral mucosal abnormality Neck: trachea midline, no thyromegaly Respiratory: no respiratory distress Auscultation: lungs clear to auscultation bilaterally Cardiovascular: Heart Sounds: normal S1 and normal S2 Extremities: + edema Gastrointestinal (Abdomen): Inspection/Auscultation: + abdomen distended Percussion/Palpation: + abdomen tender; no guarding Musculoskeletal: Extremities: no cyanosis and no clubbing Skin: + turgor decreased and + erythema (LLE) Neurologic: Motor/Sensory: no tremor and no asterixis Results & Data Vital Signs (Past 12 Hours) Vital Signs Temp Pulse Pulse Pulse Resp BP Pulse Ox 09/26/18 07:41 36.3 C L 70 18 136/67 97 09/26/18 04:00 36.4 C L 68 17 115/61 98 09/26/18 00:52 64 09/25/18 23:13 36.4 C L 68 19 142/66 H 97 Laboratory Results Laboratory Results - last 24 hr 09/25/18 09/25/18 09/25/18 11:31 15:02 16:02 WBC RBC Hgb Hct MCV MCH MCHC RDW Std Deviation RDW Coeff of Brian Plt Count MPV Sodium 141 Potassium 5.0 Chloride 111 H Carbon Dioxide 20 L Anion Gap 10.0 BUN 104 H Creatinine 2.25 H Est Cr Clr Drug Dosing 24.8 Est GFR ( Amer) 22.8 Est GFR (Non-Af Amer) 19.7 BUN/Creatinine Ratio 46.2 H Glucose 163 H POC Glucose 147 H 172 H Calcium 8.4 L Phosphorus Albumin Random Vancomycin 09/25/18 09/26/18 09/26/18 20:26 06:41 06:41 WBC 5.59 RBC 2.86 L Hgb 8.7 L Hct 26.6 L MCV 93.0 MCH 30.4 MCHC 32.7 RDW Std Deviation 47.9 H RDW Coeff of Brian 14.3 Plt Count 248 MPV 10.0 Sodium 141 Potassium 4.9 Chloride 113 H Carbon Dioxide 23 Anion Gap 5.0 BUN 103 H Creatinine 1.99 H Est Cr Clr Drug Dosing 27.6 Est GFR ( Amer) 26.4 Est GFR (Non-Af Amer) 22.8 BUN/Creatinine Ratio 51.5 H Glucose 94 POC Glucose 184 H Calcium 8.4 L Phosphorus 6.1 H Albumin 1.5 L Random Vancomycin 09/26/18 09/26/18 06:41 07:16 WBC RBC Hgb Hct MCV MCH MCHC RDW Std Deviation RDW Coeff of Brian Plt Count MPV Sodium Potassium Chloride Carbon Dioxide Anion Gap BUN Creatinine Est Cr Clr Drug Dosing Est GFR ( Amer) Est GFR (Non-Af Amer) BUN/Creatinine Ratio Glucose POC Glucose 117 H Calcium Phosphorus Albumin Random Vancomycin 18.6 (1) Pancreatitis Acute pancreatitis complication: unspecified Chronicity: acute Pancreatitis type: other Qualified Code(s): K85.80 - Other acute pancreatitis without necrosis or infection
--- NOTE | 2018-09-26 12:07 | Surgery Progress Note ---
Date of Service September 26, 2018 Assessment & Plan (1) Pancreatitis: 83 yo female with gallstone pancreatitis. Repeat CT scan on 09/20/18 showed stable severe pancreatitis. Will eventually need a cholecystectomy, but will need to wait for inflammation from significant pancreatitis to improve, i mprovement of nutritional status and medical status to be stable for operative intervention. Surgical timing to be determined. While ideally surgery is performed during the same hospitalization, given the severity of the pancreatitis and her current low nutritional status may need to wait a prolonged period prior to intervening surgically, especially since no signs of acute cholecystitis. LISA on chronic kidney disease -baseline creatinine 1.7-2.0 - 1.99 today (2.3 yesterday) - third spacing of fluid with body wall anasarca - bilateral lower and upper extremity pitting edema - low albumin Gallbladder distended on CT scan and some inflammatory change however this could be secondary to pancreatitis and fluid overload. No abdominal pain, leukocytosis resolved. LFTS wnl other than mild increase in AST. Unlikely acute cholecystitis. - Continue conservative management - Highly likely that she will end up needing recovery period and return for elective cholecystectomy. - Continue low fat diet up until cholecystectomy, BOOST supplementation TID given low albumin - Consider TPN to increase nutritional status given low appetite and not eating meals - incentive spirometry 10x/hour - Defer Renee management to hospitalist and nephrology, okay to remove renee from surgical standpoint - NEEDS TO WORK ON STRENGTH/PT, IF UNABLE TO BE OOB MUST BE IN SEATED POSITION IN CHAIR AND WORK ON MOVING EXTREMITIES THROUGHOUT THE DAY Dr. Morales has seen and examined pt, agrees with above Subjective patient still very lethargic, slightly improved today compared to yesterday when I saw her but still closes eyes and answers questions with short yes or no answers. back pain "everywhere" leg pain no abdominal pain had boost this morning but did not eat her breakfast, nurse states she has no appetite and has not been eating her meals. getting boost BID and son in room, concerned with her status and slow improvement Physical Exam Constitutional: + ill appearing and + morbidly obese; + not well nourished and no acute distress Respiratory: normal respiratory effort, lungs clear to auscultation Gastrointestinal (Abdomen): Inspection/Auscultation: abdomen normal to inspection and normal bowel sounds; abdomen not distended Percussion/Palpation: abdomen soft; abdomen nontender, no guarding and abdomen not rigid Musculoskeletal: pitting edema of the lower extremities there is erythema of the bilateral lower extremities with venous insufficiency wounds +2 pitting edema of upper extremities and hands, more so of the left upper extremity Skin: no rashes, warm and dry Psychiatric: Affect: + depressed affect Results & Data Vital Signs (Past 12 Hours) Vital Signs Temp Pulse Pulse Pulse Resp BP Pulse Ox 09/26/18 11:25 36.3 C L 72 18 113/62 98 09/26/18 07:41 36.3 C L 70 18 136/67 97 09/26/18 04:00 36.4 C L 68 17 115/61 98 09/26/18 00:52 64 (1) Pancreatitis Acute pancreatitis complication: unspecified Chronicity: acute Pancreatitis type: other Qualified Code(s): K85.80 - Other acute pancreatitis without necrosis or infection
[2018-09-26] MEDS ORDERED: TPN/PPN CONSULT PHARMACY STA (14:16)
[2018-09-26] MEDS ORDERED: TPN/PPN CONSULT PHARMACY PRN (14:46)
--- NOTE | 2018-09-26 14:46 | Ultrasound Report ---
US venous doppler UE LT CLINICAL HISTORY: 83 years-old Female presenting with new swelling at anterior left prox forearm. TECHNIQUE: Real-time grayscale and color and spectral Doppler ultrasound imaging of the veins of the left upper extremity was performed. Compression and augmentation were also utilized. COMPARISON: None. FINDINGS: LEFT: Internal jugular vein: Patent. Subclavian vein: Patent. Axillary vein: Patent. Brachial vein: Patent. Basilic vein (superficial): Patent. Cephalic vein (superficial): Patent. Radial vein: Patent. Ulnar vein: Patent. Other: None. IMPRESSION: No evidence of deep venous thrombosis. Electronically signed by: Gio Cotter M.D. 09/26/2018 2:45 PM
[2018-09-26] MEDS: ERTAPENEM SODIUM 500 MG in SODIUM CHLORIDE 0.9% 50 ML IV SCH (16:20)
[2018-09-26] MEDS: ACETAMINOPHEN 65 ML IV PRN (17:48)
[2018-09-26] MEDS: METOPROLOL SUCC 25MG EXT REL TAB PO SCH (20:16)
[2018-09-26] MEDS: INSULIN GLARGINE SOLOSTAR 100 UNITS/ML 3 ML PEN SC SCH (20:25)
--- NOTE | 2018-09-26 22:02 | Infectious Disease Progress Nt ---
Date of Service September 26, 2018 Assessment & Plan (1) Pancreatitis: Patient with acute pancreatitis, cholecystitis, and probable left lower extremity cellulitis with persistent fevers and leukocytosis. Appears to be now improving. Will continue on ertapenem . Will follow. (2) Cellulitis of left lower extremity: Subjective continues to feel tired. She has had poor appetite for the past two days. She denies chest pain, shortness of breath, fever, chills, nausea, vomiting. No acute events reported overnight. Nursing reported increase swelling in left forearm. Physical Exam Constitutional: WD/WN, vitals as above + morbidly obese and comfortable; no acute distress Eyes: PERRL, conjunctivae normal, anicteric sclerae ENMT: external ear and nose normal, oropharynx normal Neck: trachea midline, no thyromegaly neck nontender Respiratory: normal respiratory effort, lungs clear to auscultation normal percussion; does not use accessory muscles Cardiovascular: Rate/Rhythm: regular rate and regular rhythm Heart Sounds: normal S1 and normal S2; no gallop, no murmur and no cardiac rub Vessels: normal peripheral pulses; no JVD Gastrointestinal (Abdomen): normal bowel sounds, soft, nontender, no hepatosplenomegaly Inspection/Auscultation: + abdomen distended Percussion/Palpation: no abdominal mass Musculoskeletal: no cyanosis or clubbing, extremities motor strength 5/5 Spine: thoracic spine normal to inspection and lumbar spine normal to inspection; no cervical spinal tenderness Skin: normal turgor and + lesion Neurologic: patellar DTR's 2+ bilat, sensation intact no focal motor deficits Psychiatric: A+Ox3, euthymic affect Orientation: cooperative Lymphatic: no cervical or axillary lymphadenopathy no inguinal lymphadenopathy Results & Data Vital Signs (Past 12 Hours) Vital Signs Temp Pulse Pulse Resp BP Pulse Ox 09/26/18 19:59 36.3 C L 76 20 141/65 H 98 09/26/18 16:22 36.4 C L 75 15 113/66 98 09/26/18 11:25 36.3 C L 72 18 113/62 98 Laboratory Results Short CBC 09/26/18 Range/Units 06:41 WBC 5.59 (4.8-10.8) K/uL Hgb 8.7 L (12.0-16.0) g/dL Hct 26.6 L (37-47) % Plt Count 248 (130-400) K/uL BMP 09/26/18 06:41 Sodium 141 Potassium 4.9 Chloride 113 H Carbon Dioxide 23 BUN 103 H Creatinine 1.99 H Glucose 94 Calcium 8.4 L Liver Function 09/26/18 Range/Units 06:41 Albumin 1.5 L (3.4-5.0) gm/dl Diagnostic Findings Microbiology 09/22/18 16:40 Urine,Clean Catch Urine Culture - Final Yeast not Stephanie albicans 09/20/18 08:24 Blood Aerobic Blood Culture - Final No growth in Aerobic bottle after 5 days. 09/20/18 08:24 Blood Anaerobic Blood Culture - Final 09/20/18 08:23 Blood Aerobic Blood Culture - Final No growth in Aerobic bottle after 5 days. 09/20/18 08:23 Blood Anaerobic Blood Culture - Final No growth in Anaerobic bottle after 5 days. 09/16/18 12:13 Blood Aerobic Blood Culture - Final No growth in Aerobic bottle after 5 days. 09/16/18 12:13 Blood Anaerobic Blood Culture - Final 09/16/18 12:04 Blood Aerobic Blood Culture - Final No growth in Aerobic bottle after 5 days. 09/16/18 12:04 Blood Anaerobic Blood Culture - Final 09/19/18 14:45 Urine,Indwelling Cath Urine Culture - Final No growth - less than 1,000 colonies/mL. 09/14/18 15:36 Blood Aerobic Blood Culture - Final No growth in Aerobic bottle after 5 days. 09/14/18 15:36 Blood Anaerobic Blood Culture - Final No growth in Anaerobic bottle after 5 days. 09/14/18 15:27 Blood Aerobic Blood Culture - Final No growth in Aerobic bottle after 5 days. 09/14/18 15:27 Blood Anaerobic Blood Culture - Final No growth in Anaerobic bottle after 5 days. 09/14/18 Unknown Urine,Indwelling Cath Urine Culture - Final No growth - less than 1,000 colonies/mL. cc: ~ US venous doppler UE LT CLINICAL HISTORY: 83 years-old Female presenting with new swelling at anterior left prox forearm. TECHNIQUE: Real-time grayscale and color and spectral Doppler ultrasound imaging of the veins of the left upper extremity was performed. Compression and augmentation were also utilized. COMPARISON: None. FINDINGS: LEFT: Internal jugular vein: Patent. Subclavian vein: Patent. Axillary vein: Patent. Brachial vein: Patent. Basilic vein (superficial): Patent. Cephalic vein (superficial): Patent. Radial vein: Patent. Ulnar vein: Patent. Other: None. IMPRESSION: No evidence of deep venous thrombosis. Electronically signed by: Gio Cotter M.D. (1) Pancreatitis Acute pancreatitis complication: unspecified Chronicity: acute Pancreatitis type: other Qualified Code(s): K85.80 - Other acute pancreatitis without necrosis or infection
[2018-09-27] MEDS: LEVOTHYROXINE SODIUM 75 MCG TABLET PO SCH (05:59)
[2018-09-27 08:13] LABS: Hematocrit (blood only) 25.8 % (37-47); Hemoglobin 8.5 g/dL (12.0-16.0); Mean Corpuscular Hgb Conc 32.9 g/dL (32-36); Mean Corpuscular Volume 93.5 fL (80-100); Mean Platelet Volume 9.9 fL (7.4-10.4); Platelet Count 240 K/uL (130-400); RDW Coefficient of Variation 14.3 % (11.5-14.5); RDW Standard Deviation 48.2 fL (36.4-46.3); Red Blood Count 2.76 M/uL (4.2-5.4); White Blood Count 5.18 K/uL (4.8-10.8)
[2018-09-27] MEDS: INSULIN ASPART 100 UNITS/ML 3 ML PEN SC SCH ×4 (08:15→20:23)
[2018-09-27] MEDS: LACTOBACILLUS ACIDOPHILUS (FLORANEX) TAB PO SCH ×4 (08:57→20:03)
[2018-09-27] MEDS: ASPIRIN 81 MG ECTAB PO SCH (08:57)
[2018-09-27] MEDS: HEPARIN SOD 5,000 UNIT/0.5 ML VIAL SQ SCH ×2 (08:57→20:03)
[2018-09-27] MEDS: GEMFIBROZIL 600 MG TAB PO SCH (08:58)
[2018-09-27 08:59] LABS: Albumin Level 1.6 gm/dl (3.4-5.0); BUN Creatinine Ratio 53.9 (10-20); Calcium 8.8 mg/dl (8.5-10.1); Creatinine Clr Calc Pharmacy 32.1 ml/min; Est GFR (African American) 32.5; Phosphorus 5.3 mg/dl (2.5-4.9); Potassium 4.7 mmol/L (3.5-5.1)
[2018-09-27] MEDS: OMEGA-3 (PURIFIED FISH OIL) 1 GM CAP PO SCH (08:59)
[2018-09-27] MEDS: DICLOFENAC SOD 1% GEL 100 GM TUBE EXT SCH ×4 (08:59→20:04)
[2018-09-27] MEDS: POLYETHYLENE (MIRALAX) 17 GM PACK PO PRN (09:07)
[2018-09-27] MEDS: MoRPHine SULFATE 4 MG/ML 1 ML CARP\\VIAL IV PRN ×2 (09:13→13:35)
--- NOTE | 2018-09-27 10:07 | Pharmacy Report ---
Pharmacy Glycemic Short Note 2 - Date of Service September 27, 2018 - Glycemic Short BSG Results (Last 24 hours): 09/26/18 09/26/18 09/26/18 11:23 16:38 20:25 Glucose POC Glucose 168 H 121 H 172 H 09/27/18 09/27/18 07:21 07:36 Glucose 95 POC Glucose 101 H ASSESSMENT: * Ms. Keller BSG continue to be well controlled. Poor PO intake continues. Invanz continues. She required 56 units of insulin yesterday. As expected she is basal heavy. No acute changes in insulin requirements are expected, will continue with current orders. PLAN FOR INPATIENT GLYCEMIC CONTROL: * Basal insulin * Lantus scale SQ @HS, see MAR for further details * Bolus insulin * NovoLog per scale ACHS or Q6hrs while NPO * Goal Range: Low 120 mg/dL - High 160 mg/dL * Correction Factor: 20 mg/dL/unit * Nutritional / Prandial insulin per carb ratio of 1 unit per 7 grams CHO consumed PLAN FOR DISCHARGE: Per ADA recommendations her target A1C is likely <8.5/8.0%. A1C of 7.0% is not necessary and may actually predispose her to lows. Further, she will not benefit from tight BSG control. I recommend decreasing her 70/30 insulin doses by 15-20% to reach a target A1C of ~8.
--- NOTE | 2018-09-27 10:43 | Nephrology Progress Note ---
Date of Service September 27, 2018 Assessment & Plan (1) Acute kidney injury: ATN related to SIRS and decreased EAV associated w/ pancreatitis. Profound hypoalbuminemia with 3rd spacing of fluid. Creatinine approaching baseline. Azotemia persists but also improving. There is persistent evidence of intravascular volume depletion. TBW significantly increased but intravascularly depleted. Poor nutrition remains a significant concern. -- Additional 80 mg IV furosemide provided this morning -- Improved nutrition and mobility are essential to recovery: possible plan to start PPN pending PICC placement discussed with primary team -- Monitor volume status, UO and PRP -- BP is acceptable -- 09/[address] reviewed. Inflammation of pancreas and retroperitoneal space essentially unchanged. Rising creatinine & 3rd spacing of volume is concerning for ongoing inflammation and poor nutrition (2) Chronic kidney disease, stage IV (severe): -- Baseline creatinine ~ 1.7 - 2.0 (3) Pancreatitis: (4) Cholelithiasis: -- Surgery plan cholecystectomy once acute inflammation from pancreatitis has resolved -- Noted that patient is not currently a candidate for surgery in her current state of health (5) Hypertension: -- Olmesartan held due to LISA (6) Diabetes mellitus: (7) Cellulitis of left lower extremity: -- On IV Vanco & Imipenem as per ID Subjective No acute events overnight. Seen and evaluated with her at the bedside this AM. Appetite remains poor. Remains profoundly weak. Denies abdominal pain. No fevers or chills. Review of Systems Review of Systems: All systems reviewed & are unremarkable except as noted in HPI & below Physical Exam Constitutional: + ill appearing, + morbidly obese, + frail appearing and + lethargic Eyes: PERRL, conjunctivae normal, anicteric sclerae ENMT: Mouth: + dry oral mucous membranes; no oral mucosal abnormality Neck: trachea midline, no thyromegaly Respiratory: no respiratory distress Auscultation: lungs clear to auscultation bilaterally Cardiovascular: Heart Sounds: normal S1 and normal S2 Extremities: + edema Gastrointestinal (Abdomen): Inspection/Auscultation: + abdomen distended Percussion/Palpation: abdomen nontender and no guarding Musculoskeletal: Extremities: no cyanosis and no clubbing Skin: + turgor decreased and + erythema (LLE) Neurologic: Motor/Sensory: no tremor and no asterixis Results & Data Vital Signs (Past 12 Hours) Vital Signs Temp Pulse Resp BP Pulse Ox 09/27/18 07:46 36.5 C 71 18 163/71 H 99 09/27/18 02:53 36.2 C L 76 20 151/67 H 97 09/26/18 23:45 36.7 C 76 16 137/67 95 Laboratory Results Laboratory Results - last 24 hr 09/26/18 09/26/18 09/26/18 11:23 16:38 20:25 WBC RBC Hgb Hct MCV MCH MCHC RDW Std Deviation RDW Coeff of Brian Plt Count MPV Sodium Potassium Chloride Carbon Dioxide Anion Gap BUN Creatinine Est Cr Clr Drug Dosing Est GFR ( Amer) Est GFR (Non-Af Amer) BUN/Creatinine Ratio Glucose POC Glucose 168 H 121 H 172 H Calcium Phosphorus Albumin 09/27/18 09/27/18 09/27/18 07:21 07:36 07:36 WBC 5.18 RBC 2.76 L Hgb 8.5 L Hct 25.8 L MCV 93.5 MCH 30.8 MCHC 32.9 RDW Std Deviation 48.2 H RDW Coeff of Brian 14.3 Plt Count 240 MPV 9.9 Sodium 144 Potassium 4.7 Chloride 112 H Carbon Dioxide 24 Anion Gap 8.0 BUN 91 H Creatinine 1.68 H D Est Cr Clr Drug Dosing 32.1 Est GFR ( Amer) 32.5 Est GFR (Non-Af Amer) 28.0 BUN/Creatinine Ratio 53.9 H Glucose 95 POC Glucose 101 H Calcium 8.8 Phosphorus 5.3 H Albumin 1.6 L (1) Pancreatitis Acute pancreatitis complication: unspecified Chronicity: acute Pancreatitis type: other Qualified Code(s): K85.80 - Other acute pancreatitis without necrosis or infection
[2018-09-27] MEDS ORDERED: FUROSEMIDE 80 MG in SYRINGE 0 ML IV ONE (11:15)
[2018-09-27] MEDS: ERTAPENEM SODIUM 500 MG in SODIUM CHLORIDE 0.9% 50 ML IV SCH (14:30)
--- NOTE | 2018-09-27 16:07 | Family Medicine Progress Note ---
Date of Service September 27, 2018 Assessment & Plan (1) Pancreatitis: 83F was admitted on 10 September 2018 for nausea, abdominal pain, and distention. Found to have acute pancreatitis. Pt was started on Zosyn which was narrowed to a cephalosporin on 09/13/18 and then added Levoquin on 09/16/18 which was broadened to Vanc + Imipenem/ Cilastin on 09/19/18 WBC elevation, fevers. Blood cultures repeated on 09/10/18 and ID consulted on that day as well for persistent fevers. Currently on Ertapenem providing coverage for GI microbial activity from pancreatitis. PMHx: HTN, HLD (TAG ~200), DM2, neuropathy, hypothyroidism: Prior partial thyroidectomy, breast cancer s/p mastectomy in 2000. Morbid obesity (BMI 40). 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 Acute pancreatitis likely 2/2 cholelithiasis - Initial worsening of abdominal pain symptoms after admission (now no co mplaints), but repeat CT on 09/14 showed persistent pancreatitis without cyst or necrosis. Empiric abx (initially Zosyn) started and narrowed to - Cephalosporin on 09/13/18 and then re-broadened on 09/19/18. Repeat CT Scan on 09/20/18 showed no acute changes however GB consistently inflamed. - Completed 4 total doses of Ertapenem. - Surgery and GI following, plan cholecystectomy once acute inflammation from pancreatitis has resolved. - Tolerating meals without pain or complications. - Repeat blood cultures negative. - Slow and indolent recovery, Day #17 of admission. - Ertapenem for cholecystitis - completed 4 doses of abx to date. Diffuse Edema Pt with significant 17kg weight gain during admission likely all 3rd spaced given oliguria. Finally on 09/25, there were signs of improvement with about 2.5kg weight loss with one time doses of Lasix. On 09/25 24-hr cum I&O, her urine output has increased significantly and had a 24-hr negative balance of 2645mL. On 09/26, continued to have significant output with balance of -2505mL and further decrease in weight to 118.3kg. 09/26 received Lasix 80 IV x 1 dose then received an additional Lasix 40mg IV later in the day. - Encourage ambulation and incentive spirometry. With numerous conversations provided. Will continue to provide coaching to patient to encourage ambulation/activity. - Compression stockings were ordered but appears patient unable to tolerate. - On Boost supplements. Need to increase protein intake to help increase osmotic pull into vasculature system. - - Boost supplements have been added TID. - Attempted PICC line although due to significant edema of the patient, unable to obtain access - Only other option to provide TPN would be through peripheral line that would have limited daily volume - At this time will continue to diurese and feed PO Acute on chronic CKD stage IV Baseline Cr ~1.7-2.0. Creatinine 09/22 3.02; 09/23 2.77; 09/24 2.88; Improved to 2.25 on 09/25 AM and then repeat 3pm showed 2.25. 09/26 improved further to 1.99. Today improved to 1.68 (baseline level) - Nephrology previously gave Albumin. will follow up on current recs. - No current indication for dialysis per nephro. Left Arm Swelling Localized swelling with mild tenderness to left anterior just distal to antecubital fossa with no overlying erythema, increased warmth, or signs of infection; appears consistent with hematoma from IV access attempts vs. infiltration of IV site vs. thrombus. - US LUE shows no DVT Atrial fibrillation, new - Converted with one dose of IV Lopressor - Continue PO metoprolol 25 mg daily - CHADVASC 9.8%. On dvt proph anticoagulation, no indication for bridge, will address adding Vitk antagonist vs NOAC at discharge. Bilateral knee pain - chronic - Severe and prevents patients from wanting to be moved in bed, let alone engaging in PT/OT - Ordered voltaren gel to be applied bilaterally QID - Advised nursing to use IV morphine 20-30min prior to moving and therapy - Considerations that decreased alertness could be contributed to Morphine. She appears slightly more alert today and there wasn't note of receiving Morphine since last night. But difficult as want to treat pain in order for her to increase activity and also with goal to keep patient comfortable. Possible pneumonia on CT Scan, 09/19/18 - Previously reviewed CT results with Dr. Cotter, likely atelectasis and not pneumonia. No concerns for ARDS. Pt is no respiratory distress. - Abx as above. Diabetes, neuropathy - At home, on insulin and gabapentin 200 mg p.o. nightly - Hold gabapentin due to renal issues - Previous to 09/24, Insulin tightened to Lantus 35BID and tighter ISS scale given patient now eating better - She had glucose 09/24 morning of 57 for which nursing gave IV Dextrose which improved to value greater than 100. - On 09/24, Only required 11 of Novolog on 09/23 with Lantus 35 units BID. Discussed with pharmacy and placed consult for team approach to manage. Agree with discussion of holding Lantus on 09/24 morning and adjusting basal dosing. Acute on chronic anemia - Recent comparisons in Hb 10's. - Continue monitoring HTN, hypertriglyceridemia Continue ASA and gemfibrozil. Hold olmesartan for kidney fxn Hypothyroidism Prior partial thyroidectomy. Continue levothyroxine Breast cancer s/p mastectomy in 2000 Diet: Low-fat diet. DVT proph: Heparin twice daily. PT/OT: Ordered. Dispo: Admitted to PCU telemetry. Code status: DNR. (2) Cellulitis of left lower extremity: (3) Cholelithiasis: (4) Abdominal pain: (5) Nausea & vomiting: (6) Hypothyroidism (acquired): (7) Diabetes mellitus: (8) Chronic anemia: Supervising Physician Co-Signing Physician Notes Attending attestation I independently saw the patient and confirmed brooks portion of the history and physical exam. I discussed the case with the resident physician and agree with the impression and plan as noted above. IV team was unfortunately unable to identify a site for a PICC line. I suspect the significant third spacing made localization of the veins difficult. Her p.o. intake may be picking up; TPN could be done through her peripheral site though this will require a greater volume than would be required to a PICC line or central line. At at the point were we want to place a central line to achieve this goal; also do not want to add the additional volume that would be needed through the peripheral site. We will continue diuresis; if she continues to diuresis as well as she is doing could reassess her for PICC line in a day or two. I am also hopeful that her p.o. intake will continue to improve and will be able to meet her nutritional goals. Acute pancreatitis with underlying cholelithiasis surgical consultation appreciated No acute surgical intervention at this point Will need cholecystectomy when she recovers from her acute infection Severe edema in the setting of Acute on CKDIV Continue diuresis and monitor creatinine Hypoalbuminemia See above discussion Subjective Patient is resting comfortably in bed with no acute distress. No acute events overnight. Significant urinary output overnight and continues to diurese well. at bedside. Review of Systems Review of Systems: See HPI for pertinent positives and negatives. A total of ten systems were reviewed and were otherwise negative. Physical Exam Constitutional: + morbidly obese and + edematous; no acute distress Eyes: + anicteric sclerae ENMT: external ear and nose normal, oropharynx normal Respiratory: normal respiratory effort, lungs clear to auscultation Cardiovascular: RRR, no murmur, no edema Extremities: + pedal edema and + edema (Significant 2+ edema) Gastrointestinal (Abdomen): Inspection/Auscultation: abdomen normal to inspection and + abdominal edema Percussion/Palpation: abdomen soft; abdomen nontender Neurologic: moves all extremities and awake Speech / Cognition: + abnormal speech Results & Data Vital Signs (Past 12 Hours) Vital Signs Abnormal lab results 09/26/18 09/26/18 09/27/18 Range/Units 16:38 20:25 07:21 RBC (4.2-5.4) M/uL Hgb (12.0-16.0) g/dL Hct (37-47) % RDW Std Deviation (36.4-46.3) fL Chloride (98-107) mmol/L BUN (7-18) mg/dl Creatinine (0.6-1.2) mg/dl BUN/Creatinine Ratio (10-20) POC Glucose 121 H 172 H 101 H (70-99) Phosphorus (2.5-4.9) mg/dl Albumin (3.4-5.0) gm/dl 09/27/18 09/27/18 09/27/18 Range/Units 07:36 07:36 11:28 RBC 2.76 L (4.2-5.4) M/uL Hgb 8.5 L (12.0-16.0) g/dL Hct 25.8 L (37-47) % RDW Std Deviation 48.2 H (36.4-46.3) fL Chloride 112 H (98-107) mmol/L BUN 91 H (7-18) mg/dl Creatinine 1.68 H D (0.6-1.2) mg/dl BUN/Creatinine Ratio 53.9 H (10-20) POC Glucose 178 H (70-99) Phosphorus 5.3 H (2.5-4.9) mg/dl Albumin 1.6 L (3.4-5.0) gm/dl Temp Pulse Pulse Resp BP Pulse Ox 09/27/18 15:20 36.3 C L 85 18 159/68 H 99 09/27/18 12:00 73 20 158/73 H 99 09/27/18 11:31 36.3 C L 72 20 179/67 H 97 09/27/18 07:46 36.5 C 71 18 163/71 H 99 Laboratory Results Abnormal lab results 09/26/18 09/26/18 09/27/18 Range/Units 16:38 20:25 07:21 RBC (4.2-5.4) M/uL Hgb (12.0-16.0) g/dL Hct (37-47) % RDW Std Deviation (36.4-46.3) fL Chloride (98-107) mmol/L BUN (7-18) mg/dl Creatinine (0.6-1.2) mg/dl BUN/Creatinine Ratio (10-20) POC Glucose 121 H 172 H 101 H (70-99) Phosphorus (2.5-4.9) mg/dl Albumin (3.4-5.0) gm/dl 09/27/18 09/27/18 09/27/18 Range/Units 07:36 07:36 11:28 RBC 2.76 L (4.2-5.4) M/uL Hgb 8.5 L (12.0-16.0) g/dL Hct 25.8 L (37-47) % RDW Std Deviation 48.2 H (36.4-46.3) fL Chloride 112 H (98-107) mmol/L BUN 91 H (7-18) mg/dl Creatinine 1.68 H D (0.6-1.2) mg/dl BUN/Creatinine Ratio 53.9 H (10-20) POC Glucose 178 H (70-99) Phosphorus 5.3 H (2.5-4.9) mg/dl Albumin 1.6 L (3.4-5.0) gm/dl PG Care Time/CCT Total # of Minutes Spent Total Time Spent with Patient: Total time spent is greater than 50% in coordination of care (as documented) at patient's floor/unit and/or counseling patient: Resident Activity Tracking Resident Involvement: Resident Care Provided Care Provided: Adult Hospital Medicine (1) Pancreatitis Acute pancreatitis complication: unspecified Chronicity: acute Pancreatitis type: other Qualified Code(s): K85.80 - Other acute pancreatitis without necrosis or infection (2) Nausea & vomiting Vomiting Intractability: unspecified Vomiting type: unspecified Qualified Code(s): R11.2 - Nausea with vomiting, unspecified (3) Abdominal pain Abdominal location: unspecified location Qualified Code(s): R10.9 - Unspecified abdominal pain
[2018-09-27] MEDS: METOPROLOL SUCC 25MG EXT REL TAB PO SCH (20:03)
[2018-09-27] MEDS: INSULIN GLARGINE SOLOSTAR 100 UNITS/ML 3 ML PEN SC SCH (20:23)
[2018-09-28 06:26] LABS: Hematocrit (blood only) 25.8 % (37-47); Hemoglobin 8.5 g/dL (12.0-16.0); Mean Corpuscular Hgb Conc 32.9 g/dL (32-36); Mean Corpuscular Volume 93.5 fL (80-100); Mean Platelet Volume 9.9 fL (7.4-10.4); Platelet Count 207 K/uL (130-400); RDW Coefficient of Variation 14.5 % (11.5-14.5); RDW Standard Deviation 48.4 fL (36.4-46.3); Red Blood Count 2.76 M/uL (4.2-5.4); White Blood Count 4.62 K/uL (4.8-10.8)
[2018-09-28] MEDS: LEVOTHYROXINE SODIUM 75 MCG TABLET PO SCH (06:33)
[2018-09-28 06:42] LABS: Albumin Level 1.5 gm/dl (3.4-5.0); BUN Creatinine Ratio 58.3 (10-20); Calcium 8.8 mg/dl (8.5-10.1); Creatinine Clr Calc Pharmacy 35.7 ml/min; Est GFR (African American) 36.9; Est GFR (Non-African American) 31.9; Potassium 4.8 mmol/L (3.5-5.1)
[2018-09-28 06:43] LABS: Phosphorus 4.7 mg/dl (2.5-4.9)
[2018-09-28] MEDS: LACTOBACILLUS ACIDOPHILUS (FLORANEX) TAB PO SCH ×4 (08:44→19:42)
[2018-09-28] MEDS: INSULIN ASPART 100 UNITS/ML 3 ML PEN SC SCH ×4 (08:44→20:52)
[2018-09-28] MEDS: OMEGA-3 (PURIFIED FISH OIL) 1 GM CAP PO SCH (08:45)
[2018-09-28] MEDS: GEMFIBROZIL 600 MG TAB PO SCH (08:45)
[2018-09-28] MEDS: HEPARIN SOD 5,000 UNIT/0.5 ML VIAL SQ SCH ×2 (08:45→20:51)
[2018-09-28] MEDS: ASPIRIN 81 MG ECTAB PO SCH (08:45)
[2018-09-28] MEDS: DICLOFENAC SOD 1% GEL 100 GM TUBE EXT SCH ×4 (08:46→19:43)
--- NOTE | 2018-09-28 10:07 | Nephrology Progress Note ---
Date of Service September 28, 2018 Assessment & Plan (1) Acute kidney injury: ATN related to SIRS and decreased EAV associated w/ pancreatitis. Profound hypoalbuminemia with 3rd spacing of fluid. Creatinine approaching baseline. Azotemia persists but also improving. There is persistent evidence of intravascular volume depletion. TBW significantly increased but intravascularly depleted. Poor nutrition remains a significant concern. -- Additional 80 mg IV furosemide provided this morning -- Plan to transition to PO furosemide 80 mg daily tomorrow -- Monitor volume status, UO, and daily PRP -- Bhatt may be removed at nurse's discretion once patient is appropriately mobile -- BP is acceptable -- 09/[address] reviewed. Inflammation of pancreas and retroperitoneal space essentially unchanged. Rising creatinine & 3rd spacing of volume is concerning for ongoing inflammation and poor nutrition (2) Chronic kidney disease, stage IV (severe): -- Baseline creatinine ~ 1.7 - 2.0 (3) Pancreatitis: (4) Cholelithiasis: -- Surgery plan cholecystectomy once acute inflammation from pancreatitis has resolved (5) Hypertension: -- Olmesartan held due to LISA (6) Diabetes mellitus: (7) Cellulitis of left lower extremity: -- On ertapenem as per ID Subjective Dana is more awake this morning. Appetite slightly improved. Her remains at the bedside. No fevers or chills. She continues to deny abdominal pain. Review of Systems Review of Systems: All systems reviewed & are unremarkable except as noted in HPI & below Physical Exam Constitutional: + morbidly obese and + frail appearing Eyes: PERRL, conjunctivae normal, anicteric sclerae ENMT: Mouth: + dry oral mucous membranes; no oral mucosal abnormality Neck: trachea midline, no thyromegaly Respiratory: no respiratory distress Auscultation: lungs clear to auscultation bilaterally Cardiovascular: Heart Sounds: normal S1 and normal S2 Extremities: + edema Gastrointestinal (Abdomen): Inspection/Auscultation: + abdomen distended Percussion/Palpation: abdomen nontender and no guarding Musculoskeletal: Extremities: no cyanosis and no clubbing Skin: + turgor decreased and + erythema (LLE) Neurologic: Motor/Sensory: no tremor and no asterixis Results & Data Vital Signs (Past 12 Hours) Vital Signs Temp Pulse Resp BP Pulse Ox 09/28/18 07:00 36.4 C L 75 18 126/67 98 09/28/18 04:00 36.4 C L 71 18 121/64 97 09/27/18 23:12 36.5 C 71 16 174/67 H 99 Laboratory Results Laboratory Results - last 24 hr 09/27/18 09/27/18 09/27/18 11:28 16:07 20:19 WBC RBC Hgb Hct MCV MCH MCHC RDW Std Deviation RDW Coeff of Brian Plt Count MPV Sodium Potassium Chloride Carbon Dioxide Anion Gap BUN Creatinine Est Cr Clr Drug Dosing Est GFR ( Amer) Est GFR (Non-Af Amer) BUN/Creatinine Ratio Glucose POC Glucose 178 H 171 H 199 H Calcium Phosphorus Albumin 09/28/18 09/28/18 09/28/18 05:55 05:55 07:34 WBC 4.62 L RBC 2.76 L Hgb 8.5 L Hct 25.8 L MCV 93.5 MCH 30.8 MCHC 32.9 RDW Std Deviation 48.4 H RDW Coeff of Brian 14.5 Plt Count 207 MPV 9.9 Sodium 143 Potassium 4.8 Chloride 111 H Carbon Dioxide 25 Anion Gap 7.0 BUN 88 H Creatinine 1.51 H Est Cr Clr Drug Dosing 35.7 Est GFR ( Amer) 36.9 Est GFR (Non-Af Amer) 31.9 BUN/Creatinine Ratio 58.3 H Glucose 112 H POC Glucose 113 H Calcium 8.8 Phosphorus 4.7 Albumin 1.5 L (1) Pancreatitis Acute pancreatitis complication: unspecified Chronicity: acute Pancreatitis type: other Qualified Code(s): K85.80 - Other acute pancreatitis without necr osis or infection
[2018-09-28] MEDS ORDERED: FUROSEMIDE 80 MG in SYRINGE 0 ML IV ONE (10:15)
--- NOTE | 2018-09-28 11:30 | Family Medicine Progress Note ---
Date of Service September 28, 2018 Assessment & Plan (1) Pancreatitis: 83F was admitted on 10 September 2018 for nausea, abdominal pain, and distention. Found to have acute pancreatitis. Pt was started on Zosyn which was narrowed to a cephalosporin on 09/13/18 and then added Levoquin on 09/16/18 which was broadened to Vanc + Imipenem/ Cilastin on 09/19/18 WBC elevation, fevers. Blood cultures repeated on 09/10/18 and ID consulted on that day as well for persistent fevers. Currently on Ertapenem providing coverage for GI microbial activity from pancreatitis. PMHx: HTN, HLD (TAG ~200), DM2, neuropathy, hypothyroidism: Prior partial thyroidectomy, breast cancer s/p mastectomy in 2000. Morbid obesity (BMI 40). 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 Acute pancreatitis likely 2/2 cholelithiasis - Initial worsening of abdominal pain symptoms after admission (now no co mplaints), but repeat CT on 09/14 showed persistent pancreatitis without cyst or necrosis. Empiric abx (initially Zosyn) started and narrowed to - Cephalosporin on 09/13/18 and then re-broadened on 09/19/18. Repeat CT Scan on 09/20/18 showed no acute changes however GB consistently inflamed. - Completed 6 total doses of Ertapenem. - Surgery and GI following, plan cholecystectomy once acute inflammation from pancreatitis has resolved. - Tolerating meals without pain or complications. - Repeat blood cultures negative. - Slow and indolent recovery, Day #18 of admission. - Ertapenem for cholecystitis Diffuse Edema Pt with significant 17kg weight gain during admission likely all 3rd spaced given oliguria. Finally on 09/25, there were signs of improvement with about 2.5kg weight loss with one time doses of Lasix. On 09/25 24-hr cum I&O, her urine output has increased significantly and had a 24-hr negative balance of 2645mL. On 09/26, continued to have significant output with balance of -2505mL and further decrease in weight to 118.3kg. 09/26 received Lasix 80 IV x 1 dose then received an additional Lasix 40mg IV later in the day. - Encourage ambulation and incentive spirometry. With numerous conversations provided. Will continue to provide coaching to patient to encourage ambulation/activity. - Compression stockings were ordered but appears patient unable to tolerate. - On Boost supplements. Need to increase protein intake to help increase osmotic pull into vasculature system. - - Boost supplements have been added TID. - Attempted PICC line although due to significant edema of the patient, unable to obtain access - Only other option to provide TPN would be through peripheral line that would have limited daily volume - At this time will continue to diurese and feed PO Acute on chronic CKD stage IV Baseline Cr ~1.7-2.0. Creatinine 09/22 3.02; 09/23 2.77; 09/24 2.88; Improved to 2.25 on 09/25 AM and then repeat 3pm showed 2.25. 09/26 improved further to 1.99. Today improved to 1.68 (baseline level) - Nephrology previously gave Albumin. will follow up on current recs. - No current indication for dialysis per nephro. Left Arm Swelling Localized swelling with mild tenderness to left anterior just distal to antecubital fossa with no overlying erythema, increased warmth, or signs of infection; appears consistent with hematoma from IV access attempts vs. infiltration of IV site vs. thrombus. - US LUE shows no DVT Atrial fibrillation, new - Converted with one dose of IV Lopressor - Continue PO metoprolol 25 mg daily - CHADVASC 9.8%. On dvt proph anticoagulation, no indication for bridge, will address adding Vitk antagonist vs NOAC at discharge. Bilateral knee pain - chronic - Severe and prevents patients from wanting to be moved in bed, let alone engaging in PT/OT - Voltaren gel QID - Advised nursing to use IV morphine 20-30 min prior to moving and therapy - Considerations that decreased alertness could be contributed to Morphine. She appears slightly more alert today and there wasn't note of receiving Morphine since last night. But difficult as want to treat pain in order for her to increase activity and also with goal to keep patient comfortable. Possible pneumonia on CT Scan, 09/19/18 - Previously reviewed CT results with Dr. Cottre, likely atelectasis and not pneumonia. No concerns for ARDS. Pt is no respiratory distress. - Abx as above. Diabetes, neuropathy - At home, on insulin and gabapentin 200 mg p.o. nightly - Hold gabapentin due to renal issues - Previous to 09/24, Insulin tightened to Lantus 35BID and tighter ISS scale given patient now eating better - She had glucose 6/19 morning of 57 for which nursing gave IV Dextrose which improved to value greater than 100. - On 09/24, Only required 11 of Novolog on 09/23 with Lantus 35 units BID. Discussed with pharmacy and placed consult for team approach to manage. Agree with discussion of holding Lantus on 09/24 morning and adjusting basal dosing. Acute on chronic anemia - Stable - Daily H/H HTN, hypertriglyceridemia - Continue ASA and gemfibrozil - Hold olmesartan at this time due to previous LISA, continue to hold at this time while diuresing and normotensive Hypothyroidism - Prior partial thyroidectomy. - Continue levothyroxine Breast cancer s/p mastectomy in 2000 Diet: Low-fat diet. DVT proph: Heparin twice daily. PT/OT: Ordered. Dispo: Admitted to PCU telemetry. Code status: DNR. (2) Cellulitis of left lower extremity: (3) Cholelithiasis: (4) Abdominal pain: (5) Nausea & vomiting: (6) Hypothyroidism (acquired): (7) Diabetes mellitus: (8) Chronic anemia: Supervising Physician Co-Signing Physician Notes Attending attestation I independently saw the patient and confirmed brooks portion of the history and physical exam. I discussed the case with the resident physician and agree with the impression and plan as noted above. The patient still with significant third spacing, though her generalized edema seems to be improved in the last 24 to 48 hours. As noted previously, IV team was not able to identify site for a PICC line which I suspect was due to her edema. We discussed TPN with the family yesterday as an option to improve her nutritional status; however volume needed to deliver through the peripheral line would probably be too much in light of her third spacing. On the other hand, we were not at the point where we wanted to place a central line to achieve TPN. We will continue diuresis; if she continues to diuresis as well as she is doing could reassess her for PICC line in a day or two. I am also hopeful that her p.o. intake will continue to improve and will be able to meet her nutritional goals. Acute pancreatitis with underlying cholelithiasis No acute surgical intervention at this point Will need cholecystectomy when she recovers from her acute infection Severe edema in the setting of Acute on CKDIV Continue diuresis and monitor creatinine Her creatinine is approaching her baseline Lasix 80 mg IV this morning and potentially transition to oral Lasix tomorrow Hypoalbuminemia See above discussion Subjective Patient is resting comfortably in bed this morning in no acute distress. Denies any events overnight. Tolerating medications well. Denies any fevers, chills, sweats, chest pain, or shortness of breath. Review of Systems Review of Systems: All systems reviewed & are unremarkable except as noted in HPI & below Physical Exam Constitutional: + morbidly obese and + edematous Eyes: + anicteric sclerae ENMT: external ear and nose normal, oropharynx normal Respiratory: normal respiratory effort, lungs clear to auscultation Cardiovascular: Rate/Rhythm: + irregularly irregular Gastrointestinal (Abdomen): normal bowel sounds, soft, nontender, no hepatosplenomegaly Skin: Bilateral lower extremity stasis dermatitis. Significant 2+ pitting edema above the knee that appears mildly improved from exam yesterday Psychiatric: A+Ox3, euthymic affect Results & Data Vital Signs (Past 12 Hours) Vital Signs Temp Pulse Resp BP Pulse Ox 09/28/18 07:00 36.4 C L 75 18 126/67 98 09/28/18 04:00 36.4 C L 71 18 121/64 97 PG Care Time/CCT Total # of Minutes Spent Total Time Spent with Patient: Total time spent is greater than 50% in coordination of care (as documented) at patient's floor/unit and/or counseling patient: Resident Activity Tracking Resident Involvement: Resident Care Provided Care Provided: Adult Hospital Medicine (1) Pancreatitis Acute pancreatitis complication: unspecified Chronicity: acute Pancreatitis type: other Qualified Code(s): K85.80 - Other acute pancreatitis without necrosis or infection (2) Nausea & vomiting Vomiting Intractability: unspecified Vomiting type: unspecified Qualified Code(s): R11.2 - Nausea with vomiting, unspecified (3) Abdominal pain Abdominal location: unspecified location Qualified Code(s): R10.9 - Unspecified abdominal pain
[2018-09-28] MEDS: ERTAPENEM SODIUM 500 MG in SODIUM CHLORIDE 0.9% 50 ML IV SCH (14:31)
[2018-09-28] MEDS: METOPROLOL SUCC 25MG EXT REL TAB PO SCH (19:42)
[2018-09-28] MEDS: INSULIN GLARGINE SOLOSTAR 100 UNITS/ML 3 ML PEN SC SCH (20:51)
[2018-09-29] MEDS: LEVOTHYROXINE SODIUM 75 MCG TABLET PO SCH (05:48)
[2018-09-29 06:16] LABS: Albumin Level 1.6 gm/dl (3.4-5.0); BUN Creatinine Ratio 59.4 (10-20); Calcium 8.6 mg/dl (8.5-10.1); Est GFR (African American) 41.9; Est GFR (Non-African American) 36.1; Phosphorus 4.2 mg/dl (2.5-4.9)
[2018-09-29 06:23] LABS: Potassium 4.3 mmol/L (3.5-5.1)
--- NOTE | 2018-09-29 06:55 | Family Medicine Progress Note ---
Date of Service September 29, 2018 Assessment & Plan (1) Pancreatitis: 83F was admitted on 10 September 2018 for nausea, abdominal pain, and distention. Found to have acute pancreatitis. Pt was started on Zosyn which was narrowed to a cephalosporin on 09/13/18 and then added Levoquin on 09/16/18 which was broadened to Vanc + Imipenem/ Cilastin on 09/19/18 WBC elevation, fevers. Blood cultures repeated on 09/10/18 and ID consulted on that day as well for persistent fevers. Currently on Ertapenem providing coverage for GI microbial activity from pancreatitis. PMHx: HTN, HLD (TAG ~200), DM2, neuropathy, hypothyroidism: Prior partial thyroidectomy, breast cancer s/p mastectomy in 2000. Morbid obesity (BMI 40). 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 Acute pancreatitis likely 2/2 cholelithiasis - Initial worsening of abdominal pain symptoms after admission (now no co mplaints), but repeat CT on 09/14 showed persistent pancreatitis without cyst or necrosis. Empiric abx (initially Zosyn) started and narrowed to - Cephalosporin on 09/13/18 and then re-broadened on 09/19/18. Repeat CT Scan on 09/20/18 showed no acute changes however GB consistently inflamed. - Completed course of Ertapenem. No clinical signs of infection, will discontinue. - Surgery and GI following, plan cholecystectomy once acute inflammation from pancreatitis has resolved. - Tolerating meals without pain or complications. - Repeat blood cultures negative. - Slow and indolent recovery, Day #19 of admission. - Ertapenem for cholecystitis discontinued. Diffuse Edema Pt with significant 17kg weight gain during admission likely all 3rd spaced given oliguria. Finally on 09/25, there were signs of improvement with about 2.5kg weight loss with one time doses of Lasix. On 09/25 24-hr cum I&O, her urine output has increased significantly and had a 24-hr negative balance of 2645mL. On 09/26, continued to have significant output with balance of -2505mL and further decrease in weight to 118.3kg. 09/26 received Lasix 80 IV x 1 dose then received an additional Lasix 40mg IV later in the day. Had further improvement with negative balance from review on 09/29, with negative about 2L and weight decreased to 116.5kg - Encourage ambulation and incentive spirometry. With numerous conversations provided. Will continue to provide coaching to patient to encourage ambulation/activity. - Compression stockings were ordered but appears patient unable to tolerate. - On Boost supplements. Need to increase protein intake to help increase osmotic pull into vasculature system. - - Boost supplements have been added TID. Acute on chronic CKD stage IV Baseline Cr ~1.7-2.0. Creatinine 09/22 3.02; 09/23 2.77; 09/24 2.88; Improved to 2.25 on 09/25 AM and then repeat 3pm showed 2.25. 09/26 improved further to 1.99. Further improved to 1.68 (baseline level). 09/29 value is 1.36. - Nephrology previously gave Albumin. will follow up on current recs. - No current indication for dialysis per nephro. Left Arm Swelling Localized swelling with mild tenderness to left anterior just distal to antecubital fossa with no overlying erythema, increased warmth, or signs of infection; appears consistent with hematoma from IV access attempts vs. infiltration of IV site vs. thrombus. - US LUE shows no DVT Atrial fibrillation, new - Converted with one dose of IV Lopressor - Continue PO metoprolol 25 mg daily - CHADVASC 9.8%. On dvt proph anticoagulation, no indication for bridge, will address adding Vitk antagonist vs NOAC at discharge. - In NSR currently. Bilateral knee pain - chronic - Severe and prevents patients from wanting to be moved in bed, let alone engaging in PT/OT - Voltaren gel QID - Advised nursing to use IV morphine 20-30 min prior to moving and therapy - Considerations that decreased alertness could be contributed to Morphine. She appears slightly more alert today and there wasn't note of receiving Morphine since last night. But difficult as want to treat pain in order for her to increase activity and also with goal to keep patient comfortable. Possible pneumonia on CT Scan, 09/19/18 - Previously reviewed CT results with Dr. Cotter, likely atelectasis and not pneumonia. No concerns for ARDS. Pt is no respiratory distress. - Abx as above. Diabetes, neuropathy - At home, on insulin and gabapentin 200 mg p.o. nightly - Hold gabapentin due to renal issues - Previous to 09/24, Insulin tightened to Lantus 35BID and tighter ISS scale given patient now eating better - She had glucose 09/24 morning of 57 for which nursing gave IV Dextrose which improved to value greater than 100. - On 09/24, Only required 11 of Novolog on 09/23 with Lantus 35 units BID. Discussed with pharmacy and placed consult for team approach to manage. Agree with discussion of holding Lantus on 09/24 morning and adjusting basal dosing. Acute on chronic anemia - Stable - Daily H/H HTN, hypertriglyceridemia - Continue ASA and gemfibrozil - Hold olmesartan at this time due to previous LISA, continue to hold at this time while diuresing and normotensive Hypothyroidism - Prior partial thyroidectomy. - Continue levothyroxine Breast cancer s/p mastectomy in 2000 Diet: Low-fat diet. DVT proph: Heparin twice daily. PT/OT: Ordered. Dispo: Admitted to PCU telemetry. Code status: DNR. (2) Cellulitis of left lower extremity: Discontinued Vancomycin IV. No signs of current active infection today, no increase in warmth, erythema now most likely post-inflammatory hyper pigmentation. (3) Cholelithiasis: (4) Abdominal pain: (5) Nausea & vomiting: (6) Hypothyroidism (acquired): (7) Diabetes mellitus: Currently consulting pharmacy for hyperglycemic management and following recs. (8) Chronic anemia: Supervising Physician Co-Signing Physician Notes I personally examined the patient and verified all brooks points of history and exam, discussed case, and agree with decision making with Dr Soliz. slowly feeling better. trying to do more and eat more. definitely notes swelling improved. vitals noted nad breathing unlabored no pallor or icterus. edema less than when i last saw her. acute pancreatitis - gallstone related, now resolved. agree w surgery decision to delay choley given her kelly course and overall frailty, as well as clinical improvement in gallbladder. diffuse edema/anasarca - related to low albumin and immobility. improving ARF - improving. continue to follow severe acute protein malnutrition - relates to severity / prolonged course of acute illness. continue to encourage intake. otherwise as above Subjective No acute events reported overnight. Sinus rhythm per tele team. Dana states she feels improved this morning. No complaints of chest pain, shortness of breath, nausea, vomiting, diarrhea, fever, chills. She did eat breakfast this morning without complications. Physical Exam Constitutional: + morbidly obese and cooperative Eyes: + anicteric sclerae and EOM intact bilaterally Neck: trachea midline Respiratory: no respiratory distress Auscultation: + diminished lung sounds (at bases, otherwise improved from last week's exam) Cardiovascular: Rate/Rhythm: regular rate and regular rhythm Extremities: + edema Gastrointestinal (Abdomen): Inspection/Auscultation: + abdomen distended and normal bowel sounds Percussion/Palpation: abdomen nontender, no guarding and abdomen not rigid Musculoskeletal: chronic venous stasis to bilateral lower extremities; no active signs of infection. Neurologic: awake Psychiatric: Orientation: alert (increased alertness as compared to last week.) and oriented x 3 Results & Data Vital Signs (Past 12 Hours) Vital Signs Temp Pulse Pulse Pulse Resp BP Pulse Ox 09/29/18 04:37 36.3 C L 68 18 108/64 98 09/29/18 00:00 66 09/28/18 23:29 36.4 C L 73 19 148/67 H 97 09/28/18 19:01 36.5 C 80 18 148/67 H 95 Laboratory Results Laboratory Results - last 24 hr 09/28/18 09/28/18 09/29/18 16:09 20:17 05:11 Sodium 143 Potassium 4.3 Chloride 110 H Carbon Dioxide 28 Anion Gap 6.0 BUN 81 H Creatinine 1.36 H Est Cr Clr Drug Dosing 40.0 Est GFR ( Amer) 41.9 Est GFR (Non-Af Amer) 36.1 BUN/Creatinine Ratio 59.4 H Glucose 85 POC Glucose 198 H 195 H Calcium 8.6 Phosphorus 4.2 Albumin 1.6 L Specimen Hemolysis 09/29/18 09/29/18 07:22 11:15 Sodium Potassium Chloride Carbon Dioxide Anion Gap BUN Creatinine Est Cr Clr Drug Dosing Est GFR ( Amer) Est GFR (Non-Af Amer) BUN/Creatinine Ratio Glucose POC Glucose 91 161 H Calcium Phosphorus Albumin Specimen Hemolysis Medications Administered Aspirin (Ecotrin Ectab) 81 mg PO DAILY MALIK Stop: 10/14/18 08:59 Last Admin: 09/29/18 08:08 Dose: 81 mg Documented by: [id number] Admin: 09/28/18 08:45 Dose: 81 mg Documented by: [id number] Admin: 09/27/18 08:57 Dose: 81 mg Documented by: [id number] Admin: 09/26/18 08:42 Dose: 81 mg Documented by: [id number] Admin: 09/25/18 08:59 Dose: 81 mg Documented by: [id number] Admin: 09/24/18 08:59 Dose: 81 mg Documented by: [id number] Admin: 09/23/18 07:45 Dose: 81 mg Documented by: [id number] Admin: 09/22/18 08:02 Dose: 81 mg Documented by: [id number] Admin: 09/21/18 08:44 Dose: 81 mg Documented by: [id number] Admin: 09/20/18 09:15 Dose: 81 mg Documented by: [id number] Admin: 09/19/18 08:46 Dose: 81 mg Documented by: [id number] Admin: 09/18/18 07:55 Dose: 81 mg Documented by: [id number] Admin: 09/17/18 08:09 Dose: 81 mg Documented by: [id number] Admin: 09/16/18 08:06 Dose: 81 mg Documented by: [id number] Admin: 09/15/18 08:48 Dose: 81 mg Documented by: [id number] Admin: 09/14/18 07:55 Dose: 81 mg Documented by: [id number] Dextrose (Dextrose 50%) 25 - 50 ml IV UD PRN; Protocol PRN Reason: Hypoglycemia Protocol Stop: 10/10/18 21:14 Last Admin: 09/24/18 07:36 Dose: 25 ml Documented by: [id number] Diclofenac Sodium (Voltaren 1% Top) 1 appln EXT QID MALIK Stop: 10/19/18 12:59 Last Admin: 09/29/18 12:15 Dose: 1 appln Documented by: [id number] Admin: 09/29/18 08:09 Dose: 1 appln Documented by: [id number] Admin: 09/28/18 19:43 Dose: 1 appln Documented by: [id number] Admin: 09/28/18 17:20 Dose: 1 appln Documented by: [id number] Admin: 09/28/18 12:28 Dose: 1 appln Documented by: [id number] Admin: 09/28/18 08:46 Dose: 1 appln Documented by: [id number] Admin: 09/27/18 20:04 Dose: 1 appln Documented by: [id number] Admin: 09/27/18 17:06 Dose: 1 appln Documented by: [id number] Admin: 09/27/18 12:21 Dose: 1 appln Documented by: [id number] Admin: 09/27/18 08:59 Dose: 1 appln Documented by: [id number] Admin: 09/26/18 20:17 Dose: 1 appln Documented by: [id number] Admin: 09/26/18 16:21 Dose: 1 appln Documented by: [id number] Admin: 09/26/18 12:40 Dose: 1 appln Documented by: [id number] Admin: 09/26/18 08:43 Dose: 1 appln Documented by: [id number] Admin: 09/25/18 20:19 Dose: 1 appln Documented by: [id number] Admin: 09/25/18 16:26 Dose: 1 appln Documented by: [id number] Admin: 09/25/18 13:06 Dose: 1 appln Documented by: [id number] Admin: 09/25/18 09:00 Dose: 1 appln Documented by: [id number] Admin: 09/24/18 20:53 Dose: 1 appln Documented by: [id number] Admin: 09/24/18 17:18 Dose: Not Given Documented by: [id number] Admin: 09/24/18 11:42 Dose: Not Given Documented by: [id number] Admin: 09/24/18 09:11 Dose: Not Given Documented by: [id number] Admin: 09/23/18 21:00 Dose: 1 appln Documented by: [id number] Admin: 09/23/18 17:01 Dose: 1 appln Documented by: [id number] Admin: 09/23/18 11:51 Dose: 1 appln Documented by: [id number] Admin: 09/23/18 07:48 Dose: 1 appln Documented by: [id number] Admin: 09/22/18 20:25 Dose: 1 appln Documented by: [id number] Admin: 09/22/18 17:52 Dose: 1 appln Documented by: [id number] Admin: 09/22/18 12:38 Dose: 1 appln Documented by: [id number] Admin: 09/22/18 08:04 Dose: 1 appln Documented by: [id number] Admin: 09/21/18 21:41 Dose: Not Given Documented by: [id number] Admin: 09/21/18 17:10 Dose: 1 appln Documented by: [id number] Admin: 09/21/18 12:07 Dose: 1 appln Documented by: [id number] Admin: 09/21/18 08:43 Dose: 1 appln Documented by: [id number] Admin: 09/20/18 20:57 Dose: 1 appln Documented by: [id number] Admin: 09/20/18 18:34 Dose: 1 appln Documented by: [id number] Admin: 09/20/18 16:48 Dose: 1 appln Documented by: [id number] Admin: 09/20/18 11:41 Dose: 1 appln Documented by: [id number] Admin: 09/19/18 21:21 Dose: 1 appln Documented by: [id number] Admin: 09/19/18 17:19 Dose: 1 appln Documented by: [id number] Admin: 09/19/18 12:33 Dose: 1 appln Documented by: [id number] Fish Oil ([place]-3 (Purified Fish Oil)) 1 gm PO QAM MALIK Stop: 10/14/18 08:59 Last Admin: 09/29/18 08:08 Dose: 1 gm Documented by: [id number] Admin: 09/28/18 08:45 Dose: 1 gm Documented by: [id number] Admin: 09/27/18 08:59 Dose: 1 gm Documented by: [id number] Admin: 09/26/18 08:42 Dose: 1 gm Documented by: [id number] Admin: 09/25/18 08:59 Dose: 1 gm Documented by: [id number] Admin: 09/24/18 09:02 Dose: 1 gm Documented by: [id number] Admin: 09/23/18 07:45 Dose: 1 gm Documented by: [id number] Admin: 09/22/18 08:02 Dose: 1 gm Documented by: [id number] Admin: 09/21/18 08:44 Dose: 1 gm Documented by: [id number] Admin: 09/20/18 09:16 Dose: 1 gm Documented by: [id number] Admin: 09/19/18 08:47 Dose: 1 gm Documented by: [id number] Admin: 09/18/18 07:55 Dose: 1 gm Documented by: [id number] Admin: 09/17/18 08:08 Dose: 1 gm Documented by: [id number] Admin: 09/16/18 08:06 Dose: 1 gm Documented by: [id number] Admin: 09/15/18 08:47 Dose: 1 gm Documented by: [id number] Admin: 09/14/18 07:56 Dose: 1 gm Documented by: [id number] Furosemide (Lasix) 80 mg PO QAM MALIK Stop: 10/29/18 08:59 Last Admin: 09/29/18 08:08 Dose: 80 mg Documented by: [id number] Gemfibrozil (Lopid) 600 mg PO QAM MALIK Stop: 10/14/18 08:59 Last Admin: 09/29/18 08:08 Dose: 600 mg Documented by: [id number] Admin: 09/28/18 08:45 Dose: 600 mg Documented by: [id number] Admin: 09/27/18 08:58 Dose: 600 mg Documented by: [id number] Admin: 09/26/18 08:42 Dose: 600 mg Documented by: [id number] Admin: 09/25/18 08:58 Dose: 600 mg Documented by: [id number] Admin: 09/24/18 09:03 Dose: 600 mg Documented by: [id number] Admin: 09/23/18 07:44 Dose: 600 mg Documented by: [id number] Admin: 09/22/18 08:02 Dose: 600 mg Documented by: [id number] Admin: 09/21/18 08:44 Dose: 600 mg Documented by: [id number] Admin: 09/20/18 10:35 Dose: 600 mg Documented by: [id number] Admin: 09/19/18 08:45 Dose: 600 mg Documented by: [id number] Admin: 09/18/18 07:55 Dose: 600 mg Documented by: [id number] Admin: 09/17/18 08:08 Dose: 600 mg Documented by: [id number] Admin: 09/16/18 08:06 Dose: 600 mg Documented by: [id number] Admin: 09/15/18 08:48 Dose: 600 mg Documented by: [id number] Admin: 09/14/18 07:55 Dose: 600 mg Documented by: [id number] Heparin Sodium (Porcine) (Heparin Sodium (Porcine)) 5,000 units SQ Q12 MALIK Stop: 10/10/18 20:59 Last Admin: 09/29/18 08:09 Dose: 5,000 units Documented by: [id number] Cosigned by: [id number] Admin: 09/28/18 20:51 Dose: 5,000 units Documented by: [id number] Cosigned by: [id number] Admin: 09/28/18 08:45 Dose: 5,000 units Documented by: [id number] Cosigned by: [id number] Admin: 09/27/18 20:03 Dose: 5,000 units Documented by: [id number] Cosigned by: [id number] Admin: 09/27/18 08:57 Dose: 5,000 units Documented by: [id number] Cosigned by: [id number] Admin: 09/26/18 20:18 Dose: 5,000 units Documented by: [id number] Cosigned by: [id number] Admin: 09/26/18 08:43 Dose: 5,000 units Documented by: [id number] Cosigned by: [id number] Admin: 09/25/18 20:47 Dose: 5,000 units Documented by: [id number] Cosigned by: [id number] Admin: 09/25/18 08:59 Dose: 5,000 units Documented by: [id number] Cosigned by: [id number] Admin: 09/24/18 20:27 Dose: 5,000 units Documented by: [id number] Cosigned by: [id number] Admin: 09/24/18 09:02 Dose: 5,000 units Documented by: [id number] Cosigned by: [id number] Admin: 09/23/18 20:44 Dose: 5,000 units Documented by: [id number] Cosigned by: [id number] Admin: 09/23/18 07:46 Dose: 5,000 units Documented by: [id number] Cosigned by: [id number] Admin: 09/22/18 20:27 Dose: 5,000 units Documented by: [id number] Cosigned by: [id number] Admin: 09/22/18 08:02 Dose: 5,000 units Documented by: [id number] Cosigned by: [id number] Admin: 09/21/18 20:08 Dose: 5,000 units Documented by: [id number] Cosigned by: [id number] Admin: 09/21/18 08:44 Dose: 5,000 units Documented by: [id number] Cosigned by: [id number] Admin: 09/20/18 20:55 Dose: 5,000 units Documented by: [id number] Cosigned by: [id number] Admin: 09/20/18 13:00 Dose: 5,000 units Documented by: [id number] Cosigned by: [id number] Admin: 09/19/18 21:16 Dose: 5,000 units Documented by: [id number] Cosigned by: [id number] Admin: 09/19/18 08:44 Dose: 5,000 units Documented by: [id number] Cosigned by: [id number] Admin: 09/18/18 23:47 Dose: 5,000 units Documented by: [id number] Cosigned by: [id number] Admin: 09/18/18 07:55 Dose: 5,000 units Documented by: [id number] Cosigned by: [id number] Admin: 09/17/18 20:34 Dose: 5,000 units Documented by: [id number] Cosigned by: [id number] Admin: 09/17/18 08:09 Dose: 5,000 units Documented by: [id number] Cosigned by: [id number] Admin: 09/16/18 20:34 Dose: 5,000 units Documented by: [id number] Cosigned by: [id number] Admin: 09/16/18 08:06 Dose: 5,000 units Documented by: [id number] Cosigned by: [id number] Admin: 09/15/18 20:35 Dose: 5,000 units Documented by: [id number] Cosigned by: [id number] Admin: 09/15/18 08:41 Dose: 5,000 units Documented by: [id number] Cosigned by: [id number] Admin: 09/14/18 21:03 Dose: 5,000 units Documented by: [id number] Cosigned by: [id number] Admin: 09/14/18 07:56 Dose: 5,000 units Documented by: [id number] Cosigned by: [id number] Admin: 09/13/18 22:05 Dose: 5,000 units Documented by: [id number] Cosigned by: [id number] Admin: 09/13/18 08:26 Dose: 5,000 units Documented by: [id number] Cosigned by: [id number] Admin: 09/12/18 20:33 Dose: 5,000 units Documented by: [id number] Cosigned by: [id number] Admin: 09/12/18 08:38 Dose: 5,000 units Documented by: [id number] Cosigned by: [id number] Admin: 09/11/18 21:17 Dose: 5,000 units Documented by: [id number] Cosigned by: [id number] Admin: 09/11/18 07:31 Dose: 5,000 units Documented by: [id number] Cosigned by: [id number] Admin: 09/10/18 22:31 Dose: 5,000 units Documented by: [id number] Cosigned by: [id number] Acetaminophen (Ofirmev) 65 mls @ 200 mls/hr IV Q8H PRN; Protocol PRN Reason: Fever Stop: 10/15/18 08:44 Last Infusion: 09/26/18 18:10 Dose: 0 mls/hr Documented by: [id number] Admin: 09/26/18 17:48 Dose: 200 mls/hr Documented by: [id number] Infusion: 09/25/18 21:26 Dose: 0 mls/hr Documented by: [id number] Admin: 09/25/18 19:42 Dose: 200 mls/hr Documented by: [id number] Infusion: 09/25/18 09:55 Dose: 0 mls/hr Documented by: [id number] Admin: 09/25/18 09:32 Dose: 200 mls/hr Documented by: [id number] Infusion: 09/24/18 08:01 Dose: 0 mls/hr Documented by: [id number] Admin: 09/24/18 07:41 Dose: 200 mls/hr Documented by: [id number] Infusion: 09/23/18 21:15 Dose: 0 mls/hr Documented by: [id number] Admin: 09/23/18 20:55 Dose: 200 mls/hr Documented by: [id number] Infusion: 09/20/18 00:56 Dose: 0 mls/hr Documented by: [id number] Admin: 09/19/18 23:48 Dose: 200 mls/hr Documented by: [id number] Infusion: 09/17/18 19:28 Dose: 0 mls/hr Documented by: [id number] Admin: 09/17/18 19:08 Dose: 200 mls/hr Documented by: [id number] Infusion: 09/16/18 20:53 Dose: 0 mls/hr Documented by: [id number] Admin: 09/16/18 20:33 Dose: 200 mls/hr Documented by: [id number] Insulin Aspart (Novolog Flexpen) 0 units SC [facility]; Protocol Stop: 10/24/18 20:59 Last Admin: 09/29/18 12:12 Dose: 16 units Documented by: [id number] Cosigned by: [id number] Admin: 09/29/18 08:11 Dose: 10 units Documented by: [id number] Cosigned by: [id number] Admin: 09/28/18 20:52 Dose: 2 units Documented by: [id number] Cosigned by: [id number] Admin: 09/28/18 17:18 Dose: 13 units Documented by: [id number] Cosigned by: [id number] Admin: 09/28/18 12:27 Dose: 14 units Documented by: [id number] Cosigned by: [id number] Admin: 09/28/18 08:44 Dose: 9 units Documented by: [id number] Cosigned by: [id number] Admin: 09/27/18 20:23 Dose: 2 units Documented by: [id number] Cosigned by: [id number] Admin: 09/27/18 17:05 Dose: 9 units Documented by: [id number] Cosigned by: [id number] Admin: 09/27/18 12:20 Dose: 8 units Documented by: [id number] Cosigned by: [id number] Admin: 09/27/18 08:15 Dose: Not Given Documented by: [id number] Cosigned by: [id number] Admin: 09/26/18 20:27 Dose: 1 units Documented by: [id number] Cosigned by: [id number] Admin: 09/26/18 17:47 Dose: 8 units Documented by: [id number] Cosigned by: [id number] Admin: 09/26/18 12:40 Dose: 5 units Documented by: [id number] Cosigned by: [id number] Admin: 09/26/18 08:40 Dose: 7 units Documented by: [id number] Cosigned by: [id number] Admin: 09/25/18 20:51 Dose: 2 units Documented by: [id number] Cosigned by: [id number] Admin: 09/25/18 18:00 Dose: 9 units Documented by: [id number] Cosigned by: [id number] Admin: 09/25/18 13:20 Dose: Not Given Documented by: [id number] Cosigned by: [id number] Admin: 09/25/18 08:59 Dose: Not Given Documented by: [id number] Cosigned by: [id number] Admin: 09/24/18 21:41 Dose: Not Given Documented by: [id number] Cosigned by: [id number] Admin: 09/24/18 18:11 Dose: Not Given Documented by: [id number] Cosigned by: [id number] Admin: 09/24/18 12:28 Dose: 10 units Documented by: [id number] Cosigned by: [id number] Admin: 09/24/18 08:53 Dose: Not Given Documented by: [id number] Cosigned by: [id number] Admin: 09/23/18 20:45 Dose: Not Given Documented by: [id number] Cosigned by: [id number] Admin: 09/23/18 17:00 Dose: Not Given Documented by: [id number] Cosigned by: [id number] Admin: 09/23/18 11:52 Dose: 2 units Documented by: [id number] Cosigned by: [id number] Admin: 09/23/18 07:50 Dose: 9 units Documented by: [id number] Cosigned by: [id number] Admin: 09/22/18 20:27 Dose: Not Given Documented by: [id number] Cosigned by: [id number] Admin: 09/22/18 17:51 Dose: Not Given Documented by: [id number] Cosigned by: [id number] Admin: 09/22/18 12:37 Dose: 8 units Documented by: [id number] Cosigned by: [id number] Admin: 09/22/18 08:03 Dose: 5 units Documented by: [id number] Cosigned by: [id number] Admin: 09/21/18 20:18 Dose: 3 units Documented by: [id number] Cosigned by: [id number] Admin: 09/21/18 17:10 Dose: 11 units Documented by: [id number] Cosigned by: [id number] Admin: 09/21/18 12:06 Dose: 10 units Documented by: [id number] Cosigned by: [id number] Admin: 09/21/18 08:41 Dose: 18 units Documented by: [id number] Cosigned by: [id number] Admin: 09/20/18 20:57 Dose: Not Given Documented by: [id number] Cosigned by: [id number] Admin: 09/20/18 16:51 Dose: 16 units Documented by: [id number] Cosigned by: [id number] Admin: 09/20/18 13:00 Dose: 5 units Documented by: [id number] Cosigned by: [id number] Admin: 09/20/18 08:56 Dose: 14 units Documented by: [id number] Cosigned by: [id number] Admin: 09/19/18 21:21 Dose: 3 units Documented by: [id number] Cosigned by: [id number] Admin: 09/19/18 17:23 Dose: 31 units Documented by: [id number] Cosigned by: [id number] Admin: 09/19/18 12:32 Dose: 16 units Documented by: [id number] Cosigned by: [id number] Admin: 09/19/18 08:43 Dose: 15 units Documented by: [id number] Cosigned by: [id number] Admin: 09/18/18 21:42 Dose: 8 units Documented by: [id number] Cosigned by: [id number] Admin: 09/18/18 17:04 Dose: 10 units Documented by: [id number] Cosigned by: [id number] Admin: 09/18/18 12:25 Dose: 4 units Documented by: [id number] Cosigned by: [id number] Admin: 09/18/18 07:57 Dose: 5 units Documented by: [id number] Cosigned by: [id number] Admin: 09/17/18 20:34 Dose: 2 units Documented by: [id number] Cosigned by: [id number] Insulin Glargine (Lantus Solostar Pen) 0 units SC [facility]; Protocol Stop: 10/25/18 20:59 Last Admin: 09/28/18 20:51 Dose: 45 units Documented by: [id number] Cosigned by: [id number] Admin: 09/27/18 20:23 Dose: 45 units Documented by: [id number] Cosigned by: [id number] Admin: 09/26/18 20:25 Dose: 35 units Documented by: [id number] Cosigned by: [id number] Admin: 09/25/18 20:48 Dose: 45 units Documented by: [id number] Cosigned by: [id number] Lactobacillus Acidophilus (Floranex) 4 tab PO QIDM [facility] Stop: 10/19/18 11:59 Last Admin: 09/29/18 12:14 Dose: 4 tab Documented by: [id number] Admin: 09/29/18 08:08 Dose: 4 tab Documented by: [id number] Admin: 09/28/18 19:42 Dose: 4 tab Documented by: [id number] Admin: 09/28/18 17:20 Dose: 4 tab Documented by: [id number] Admin: 09/28/18 12:28 Dose: 4 tab Documented by: [id number] Admin: 09/28/18 08:44 Dose: 4 tab Documented by: [id number] Admin: 09/27/18 20:03 Dose: 4 tab Documented by: [id number] Admin: 09/27/18 17:06 Dose: 4 tab Documented by: [id number] Admin: 09/27/18 12:21 Dose: 4 tab Documented by: [id number] Admin: 09/27/18 08:57 Dose: 4 tab Documented by: [id number] Admin: 09/26/18 20:16 Dose: 4 tab Documented by: [id number] Admin: 09/26/18 16:21 Dose: 4 tab Documented by: [id number] Admin: 09/26/18 12:40 Dose: 4 tab Documented by: [id number] Admin: 09/26/18 08:40 Dose: 4 tab Documented by: [id number] Admin: 09/25/18 20:18 Dose: 4 tab Documented by: [id number] Admin: 09/25/18 16:26 Dose: 4 tab Documented by: [id number] Admin: 09/25/18 13:05 Dose: 4 tab Documented by: [id number] Admin: 09/25/18 08:59 Dose: 4 tab Documented by: [id number] Admin: 09/24/18 20:53 Dose: Not Given Documented by: [id number] Admin: 09/24/18 17:18 Dose: Not Given Documented by: [id number] Admin: 09/24/18 11:43 Dose: 4 tab Documented by: [id number] Admin: 09/24/18 09:00 Dose: 4 tab Documented by: [id number] Admin: 09/23/18 20:44 Dose: 4 tab Documented by: [id number] Admin: 09/23/18 17:01 Dose: 4 tab Documented by: [id number] Admin: 09/23/18 11:50 Dose: 4 tab Documented by: [id number] Admin: 09/23/18 07:45 Dose: 4 tab Documented by: [id number] Admin: 09/22/18 20:24 Dose: 4 tab Documented by: [id number] Admin: 09/22/18 17:52 Dose: 4 tab Documented by: [id number] Admin: 09/22/18 12:38 Dose: 4 tab Documented by: [id number] Admin: 09/22/18 07:56 Dose: 4 tab Documented by: [id number] Admin: 09/21/18 20:05 Dose: 4 tab Documented by: [id number] Admin: 09/21/18 17:09 Dose: 4 tab Documented by: [id number] Admin: 09/21/18 12:05 Dose: 4 tab Documented by: [id number] Admin: 09/21/18 08:44 Dose: 4 tab Documented by: [id number] Admin: 09/20/18 20:54 Dose: 4 tab Documented by: [id number] Admin: 09/20/18 16:49 Dose: 4 tab Documented by: [id number] Admin: 09/20/18 13:02 Dose: Not Given Documented by: [id number] Admin: 09/20/18 09:14 Dose: 4 tab Documented by: [id number] Admin: 09/19/18 21:16 Dose: 4 tab Documented by: [id number] Admin: 09/19/18 17:20 Dose: 4 tab Documented by: [id number] Admin: 09/19/18 12:33 Dose: 4 tab Documented by: [id number] Levothyroxine Sodium (Synthroid) 75 mcg PO DAILYBB MALIK Stop: 10/14/18 06:29 Last Admin: 09/29/18 05:48 Dose: 75 mcg Documented by: [id number] Admin: 09/28/18 06:33 Dose: 75 mcg Documented by: [id number] Admin: 09/27/18 05:59 Dose: 75 mcg Documented by: [id number] Admin: 09/26/18 06:13 Dose: 75 mcg Documented by: [id number] Admin: 09/25/18 06:05 Dose: 75 mcg Documented by: [id number] Admin: 09/24/18 05:43 Dose: 75 mcg Documented by: [id number] Admin: 09/23/18 05:31 Dose: 75 mcg Documented by: [id number] Admin: 09/22/18 05:21 Dose: 75 mcg Documented by: [id number] Admin: 09/21/18 06:26 Dose: 75 mcg Documented by: [id number] Admin: 09/20/18 05:54 Dose: 75 mcg Documented by: [id number] Admin: 09/19/18 06:49 Dose: 75 mcg Documented by: [id number] Admin: 09/18/18 05:28 Dose: 75 mcg Documented by: [id number] Admin: 09/17/18 06:37 Dose: 75 mcg Documented by: [id number] Admin: 09/16/18 05:59 Dose: 75 mcg Documented by: [id number] Admin: 09/15/18 06:38 Dose: 75 mcg Documented by: [id number] Admin: 09/14/18 06:29 Dose: 75 mcg Documented by: [id number] Metoprolol Succinate (Toprol Xl) 25 mg PO QPM MALIK Stop: 10/15/18 20:59 Last Admin: 09/28/18 19:42 Dose: 25 mg Documented by: [id number] Admin: 09/27/18 20:03 Dose: 25 mg Documented by: [id number] Admin: 09/26/18 20:16 Dose: 25 mg Documented by: [id number] Admin: 09/25/18 20:19 Dose: 25 mg Documented by: [id number] Admin: 09/24/18 20:50 Dose: 25 mg Documented by: [id number] Admin: 09/23/18 20:44 Dose: 25 mg Documented by: [id number] Admin: 09/22/18 20:24 Dose: 25 mg Documented by: [id number] Admin: 09/21/18 20:08 Dose: 25 mg Documented by: [id number] Admin: 09/20/18 20:57 Dose: 25 mg Documented by: [id number] Admin: 09/19/18 21:17 Dose: 25 mg Documented by: [id number] Admin: 09/18/18 23:47 Dose: 25 mg Documented by: [id number] Admin: 09/17/18 20:35 Dose: 25 mg Documented by: [id number] Admin: 09/16/18 20:34 Dose: 25 mg Documented by: [id number] Admin: 09/15/18 20:35 Dose: 25 mg Documented by: [id number] Morphine Sulfate (Morphine Sulfate) 3 mg IV Q2H PRN PRN Reason: Moderate Pain Stop: 10/09/18 17:40 Last Admin: 09/27/18 13:35 Dose: 3 mg Documented by: [id number] Admin: 09/27/18 09:13 Dose: 3 mg Documented by: [id number] Admin: 09/25/18 23:40 Dose: 3 mg Documented by: [id number] Admin: 09/25/18 21:02 Dose: 3 mg Documented by: [id number] Polyethylene Glycol (Miralax Powder Packet) 17 gm PO DAILY PRN PRN Reason: Constipation Stop: 10/24/18 11:48 Last Admin: 09/27/18 09:07 Dose: 17 gm Documented by: [id number] Admin: 09/26/18 06:14 Dose: 17 gm Documented by: [id number] Vitamin D (Vitamin D3) 2,000 units PO [id number] MALIK Stop: 10/15/18 08:59 Last Admin: 09/29/18 08:08 Dose: 2,000 units Documented by: [id number] Admin: 09/26/18 08:42 Dose: 2,000 units Documented by: [id number] Admin: 09/24/18 09:03 Dose: 2,000 units Documented by: [id number] Admin: 09/22/18 08:02 Dose: 2,000 units Documented by: [id number] Admin: 09/19/18 08:46 Dose: 2,000 units Documented by: [id number] Admin: 09/17/18 08:08 Dose: 2,000 units Documented by: [id number] Admin: 09/15/18 08:48 Dose: 2,000 units Documented by: [id number] PG Care Time/CCT Total # of Minutes Spent Total Time Spent with Patient: Total time spent is greater than 50% in coordination of care (as documented) at patient's floor/unit and/or counseling patient: Resident Activity Tracking Resident Involvement: Resident Care Provided Care Provided: Adult Hospital Medicine (1) Pancreatitis Acute pancreatitis complication: unspecified Chronicity: acute Pancreatitis type: other Qualified Code(s): K85.80 - Other acute pancreatitis without necrosis or infection (2) Nausea & vomiting Vomiting Intractability: unspecified Vomiting type: unspecified Qualified Code(s): R11.2 - Nausea with vomiting, unspecified (3) Abdominal pain Abdominal location: unspecified location Qualified Code(s): R10.9 - Unspecified abdominal pain
--- NOTE | 2018-09-29 07:17 | Nephrology Progress Note ---
Date of Service September 29, 2018 Assessment & Plan (1) Acute kidney injury: ATN related to SIRS and decreased EAV associated w/ pancreatitis. Profound hypoalbuminemia with 3rd spacing of fluid. Creatinine improved to baseline. Azotemia persists but also improving. Poor nutrition remains a si gnificant concern. TBW remains significantly increased -- Furosemide 80 mg PO daily starting this morning, additional diuretic may be provided PRN to encourage a net negative fluid balance -- Net negative 2L in past 24 hours but weight increased, will monitor -- Monitor daily, UO, and daily PRP -- Bhatt may be removed -- BP is acceptable -- 09/[address] reviewed. Inflammation of pancreas and retroperitoneal space essentially unchanged. Rising creatinine & 3rd spacing of volume is concerning for ongoing inflammation and poor nutrition (2) Chronic kidney disease, stage IV (severe): -- Baseline creatinine ~ 1.7 - 2.0 (3) Pancreatitis: (4) Cholelithiasis: -- Surgery plan cholecystectomy once acute inflammation from pancreatitis has resolved and patient has appropriately recovered from acute illness (5) Hypertension: -- Olmesartan held due to LISA (6) Diabetes mellitus: (7) Cellulitis of left lower extremity: -- On ertapenem as per ID Subjective Patient is resting comfortably in bed this morning in no acute distress. Denies any events overnight. Tolerating medications well. Denies any fevers, chills, sweats, chest pain, or shortness of breath. Appetite improving. Review of Systems Review of Systems: All systems reviewed & are unremarkable except as noted in HPI & below Physical Exam Constitutional: + morbidly obese and + frail appearing Eyes: PERRL, conjunctivae normal, anicteric sclerae ENMT: Mouth: + dry oral mucous membranes; no oral mucosal abnormality Neck: trachea midline, no thyromegaly Respiratory: normal respiratory effort, lungs clear to auscultation no respiratory distress Auscultation: lungs clear to auscultation bilaterally Cardiovascular: RRR, no murmur, no edema Heart Sounds: normal S1 and normal S2 Extremities: + edema Gastrointestinal (Abdomen): Inspection/Auscultation: + abdomen distended Percussion/Palpation: abdomen nontender and no guarding Musculoskeletal: Extremities: no cyanosis and no clubbing Skin: + turgor decreased and + erythema (LLE) Neurologic: Motor/Sensory: no tremor and no asterixis Results & Data Vital Signs (Past 12 Hours) Vital Signs Temp Pulse Pulse Resp BP Pulse Ox 09/29/18 04:37 36.3 C L 68 18 108/64 98 09/29/18 00:00 66 09/28/18 23:29 36.4 C L 73 19 148/67 H 97 Laboratory Results Laboratory Results - last 24 hr 09/28/18 09/28/18 09/28/18 07:34 11:32 16:09 Sodium Potassium Chloride Carbon Dioxide Anion Gap BUN Creatinine Est Cr Clr Drug Dosing Est GFR ( Amer) Est GFR (Non-Af Amer) BUN/Creatinine Ratio Glucose POC Glucose 113 H 168 H 198 H Calcium Phosphorus Albumin Specimen Hemolysis 09/28/18 09/29/18 20:17 05:11 Sodium 143 Potassium 4.3 Chloride 110 H Carbon Dioxide 28 Anion Gap 6.0 BUN 81 H Creatinine 1.36 H Est Cr Clr Drug Dosing 40.0 Est GFR ( Amer) 41.9 Est GFR (Non-Af Amer) 36.1 BUN/Creatinine Ratio 59.4 H Glucose 85 POC Glucose 195 H Calcium 8.6 Phosphorus 4.2 Albumin 1.6 L Specimen Hemolysis (1) Pancreatitis Acute pancreatitis complication: unspecified Chronicity: acute Pancreatitis type: other Qualified Code(s): K85.80 - Other acute pancreatitis without necrosis or infection
[2018-09-29] MEDS: OMEGA-3 (PURIFIED FISH OIL) 1 GM CAP PO SCH (08:08)
[2018-09-29] MEDS: GEMFIBROZIL 600 MG TAB PO SCH (08:08)
[2018-09-29] MEDS: ASPIRIN 81 MG ECTAB PO SCH (08:08)
[2018-09-29] MEDS: CHOLECALCIFEROL 1,000 UNITS TAB PO SCH (08:08)
[2018-09-29] MEDS: FUROSEMIDE 80 MG TAB PO SCH (08:08)
[2018-09-29] MEDS: LACTOBACILLUS ACIDOPHILUS (FLORANEX) TAB PO SCH ×4 (08:08→20:08)
[2018-09-29] MEDS: HEPARIN SOD 5,000 UNIT/0.5 ML VIAL SQ SCH ×2 (08:09→20:09)
[2018-09-29] MEDS: DICLOFENAC SOD 1% GEL 100 GM TUBE EXT SCH ×4 (08:09→21:05)
[2018-09-29] MEDS: INSULIN ASPART 100 UNITS/ML 3 ML PEN SC SCH ×4 (08:11→21:04)
--- NOTE | 2018-09-29 11:51 | Surgery Progress Note ---
Date of Service September 29, 2018 Assessment & Plan (1) Pancreatitis: Subjectively much improved Plans are for transfer for rehabilitation Can consider cholecystectomy in the future when she is more medically sound We will sign off for now Please let us know if there is anything else we can do to be of assistance Subjective Awake and alert today Sitting up eating her regular diet Denies abdominal pain Denies nausea and vomiting Physical Exam Gastrointestinal (Abdomen): Inspection/Auscultation: abdomen not distended Percussion/Palpation: abdomen soft; abdomen nontender Results & Data Vital Signs (Past 12 Hours) Vital Signs Temp Pulse Pulse Pulse Resp BP Pulse Ox 09/29/18 10:53 36.4 C L 71 19 147/69 H 98 09/29/18 07:50 36.8 C 74 19 143/68 H 96 09/29/18 04:37 36.3 C L 68 18 108/64 98 09/29/18 00:00 66 Laboratory Results 09/29/18 09/29/18 09/29/18 Range/Units 11:15 07:22 05:11 Sodium 143 (136-145) mmol/L Potassium 4.3 (3.5-5.1) mmol/L Chloride 110 H (98-107) mmol/L Carbon Dioxide 28 (21-32) mmol/L Anion Gap 6.0 (3-11) BUN 81 H (7-18) mg/dl Creatinine 1.36 H (0.6-1.2) mg/dl Est Cr Clr Drug Dosing 40.0 ml/min Est GFR ( Amer) 41.9 Est GFR (Non-Af Amer) 36.1 BUN/Creatinine Ratio 59.4 H (10-20) Glucose 85 (70-99) mg/dl POC Glucose 161 H 91 (70-99) Calcium 8.6 (8.5-10.1) mg/dl Phosphorus 4.2 (2.5-4.9) mg/dl Albumin 1.6 L (3.4-5.0) gm/dl Specimen Hemolysis 09/28/18 09/28/18 09/28/18 Range/Units 20:17 16:09 11:32 Sodium (136-145) mmol/L Potassium (3.5-5.1) mmol/L Chloride (98-107) mmol/L Carbon Dioxide (21-32) mmol/L Anion Gap (3-11) BUN (7-18) mg/dl Creatinine (0.6-1.2) mg/dl Est Cr Clr Drug Dosing ml/min Est GFR ( Amer) Est GFR (Non-Af Amer) BUN/Creatinine Ratio (10-20) Glucose (70-99) mg/dl POC Glucose 195 H 198 H 168 H (70-99) Calcium (8.5-10.1) mg/dl Phosphorus (2.5-4.9) mg/dl Albumin (3.4-5.0) gm/dl Specimen Hemolysis (1) Pancreatitis Acute pancreatitis complication: unspecified Chronicity: acute Pancreatitis type: other Qualified Code(s): K85.80 - Other acute pancreatitis without necrosis or infection
--- NOTE | 2018-09-29 11:54 | Pharmacy Report ---
Pharmacy Glycemic Short Note 2 - Date of Service September 29, 2018 - Glycemic Short BSG Results (Last 24 hours): 09/28/18 09/28/18 09/28/18 11:32 16:09 20:17 Glucose POC Glucose 168 H 198 H 195 H 09/29/18 09/29/18 09/29/18 05:11 07:22 11:15 Glucose 85 POC Glucose 91 161 H ASSESSMENT: 09/29: * Bsg's continue to be adequate, however there could be some improvement in post prandial BSGs. I will slightly tighten carb coverage to help address this. I will also order a slight dose reduction for evening lantus scale. Fasting BSGs are excellent, but do not want to be overly aggressive. Will loosen and monitor trend. She required 83 units of insulin yesterday. 09/27 * Ms. Mike's BSG continue to be well controlled. Poor PO intake continues. Invanz continues. She required 56 units of insulin yesterday. As expected she is basal heavy. No acute changes in insulin requirements are expected, will continue with current orders. PLAN FOR INPATIENT GLYCEMIC CONTROL: * Basal insulin * Lantus scale SQ @HS, see MAR for further details * Bolus insulin * NovoLog per scale ACHS or Q6hrs while NPO * Goal Range: Low 120 mg/dL - High 160 mg/dL * Correction Factor: 20 mg/dL/unit * Nutritional / Prandial insulin per carb ratio of 1 unit per 6 grams CHO consumed PLAN FOR DISCHARGE: Per ADA recommendations her target A1C is likely <8.5/8.0%. A1C of 7.0% is not necessary and may actually predispose her to lows. Further, she will not benefit from tight BSG control. I recommend decreasing her 70/30 insulin doses by 15-20% to reach a target A1C of ~8.
[2018-09-29] MEDS: MoRPHine SULFATE 4 MG/ML 1 ML CARP\\VIAL IV PRN (20:07)
[2018-09-29] MEDS: METOPROLOL SUCC 25MG EXT REL TAB PO SCH (20:08)
[2018-09-29] MEDS: INSULIN GLARGINE SOLOSTAR 100 UNITS/ML 3 ML PEN SC SCH (21:04)
[2018-09-30] MEDS: LEVOTHYROXINE SODIUM 75 MCG TABLET PO SCH (06:22)
--- NOTE | 2018-09-30 06:41 | Discharge Summary ---
Date of Service October 03, 2018 Admission HPI Per Admitting Provider 83-year-old morbidly obese white female with onset of abdominal pain nausea and distention this morning. Her symptoms progressed and she came to the ED for evaluation. Lipase is greater than 40,[address] scan confirms acute pancreatitis. The gallbladder is distended but does not appear to have acute cholecystitis at this time. C creatinine is 2.1, only slightly higher than baseline. She has chronic kidney disease stage IV. Potassium is 5.6. Serial labs are ordered. She will be kept n.p.o. and given intravenous fluids. Diuretics will be held. Her usual insulin dosage will be decreased by half and sliding scale coverage will be administered. Admission Exam Per Admitting Provider General-alert and oriented x3, no fevers, no chills HEENT-head atraumatic and normocephalic, TMs intact bilaterally, pupils equal and reactive to light, extraocular muscles intact Neck-no lymphadenopathy or thyromegaly, trachea midline Chest-clear to auscultation percussion. No rales wheezing or rhonchi Cardiac-regular rate and rhythm, normal S1 and S2. Frequent premature beats Abdomen-distended with absent bowel sounds. Diffusely tender. No overt rebound or guarding. Extremities-she has chronic venous stasis and chronic lower extremity edema. Diffuse erythema and superficial ulcerations around the left lower extremity below the knee. She appears to have a cellulitis in this area. Neuro-cranial nerves II through XII intact, motor and sensory function within normal limits, strength symmetrical , no focal deficits Psych-normal affect, normal mood Principal Diagnosis Pancreatitis Discharge Exam Constitutional + morbidly obese and cooperative Eyes + anicteric sclerae and EOM intact bilaterally Neck trachea midline Respiratory no respiratory distress Auscultation: + diminished lung sounds (at bases, otherwise improved from last week's exam) Cardiovascular Rate/Rhythm: regular rate and regular rhythm Extremities: + edema Gastrointestinal (Abdomen) Inspection/Auscultation: + abdomen distended and normal bowel sounds Percussion/Palpation: abdomen nontender, no guarding and abdomen not rigid Neurologic awake Psychiatric Orientation: alert (increased alertness as compared to last week.) and oriented x 3 Affect: + flat affect Discharge Data Allergies Allergy/AdvReac Type Severity Reaction Status Date / Time Sulfa (Sulfonamide Allergy Unknown BLISTERS Verified 09/10/18 17:40 Antibiotics) Consultations 09/10/18 18:00 ED Decision to Admit Stat 09/11/18 08:19 Consult Gastroenterology Routine 09/11/18 14:40 Consult General Surgery Routine 09/12/18 11:13 Consult Nephrology Routine 09/20/18 07:44 Consult Infectious Diseases Routine Ordered Studies 09/10/18 16:10 CT abd pelvis wo con Stat 09/11/18 08:20 MR MRCP Routine 09/11/18 10:53 US gallbladder Urgent 09/14/18 10:07 US venous doppler LE BI Stat 09/14/18 15:08 CT abd pelvis wo con Stat 09/14/18 16:56 US abdomen limited Routine 09/19/18 10:54 CT chest wo con Urgent 09/20/18 11:03 CT abd pelvis oral con only Stat 09/26/18 11:59 US venous doppler UE LT Routine Hospital Course (1) Pancreatitis: 83F was admitted on 10 September 2018 for nausea, abdominal pain, and distention. Found to have acute pancreatitis. Pt was started on Zosyn which was narrowed to a cephalosporin on 09/13/18 and then added Levoquin on 09/16/18 which was broadened to Vanc + Imipenem/ Cilastin on 09/19/18 WBC elevation, fevers. Blood cultures repeated on 09/10/18 and ID consulted on that day as well for persistent fevers. Then, completed course of Ertapenem providing coverage for GI microbial activity from pancreatitis. PMHx: HTN, HLD (TAG ~200), DM2, neuropathy, hypothyroidism: Prior partial thyroidectomy, breast cancer s/p mastectomy in 2000. Morbid obesity (BMI 40). 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 Acute pancreatitis likely 2/2 cholelithiasis - Initial worsening of abdominal pain symptoms after admission (now no complaints), but repeat CT on 09/14 showed persistent pancreatitis without cyst or necrosis. Empiric abx (initially Zosyn) started and narrowed to - Cephalosporin on 09/13/18 and then re-broadened on 09/19/18. Repeat CT Scan on 09/20/18 showed no acute changes however GB consistently inflamed. - Completed course of Ertapenem. No clinical signs of infection, will discontinue. - Surgery and GI following, plan cholecystectomy once acute inflammation from pancreatitis has resolved and patient is more medically sound. - Tolerating meals without pain or complications. - Repeat blood cultures negative. - Slow and indolent recovery, Day #20 of admission. - Ertapenem for cholecystitis discontinued. Diffuse Edema Pt with significant 17kg weight gain during admission likely all 3rd spaced given oliguria. Finally on 09/25, there were signs of improvement with about 2.5kg weight loss with one time doses of Lasix. On 09/25 24-hr cum I&O, her urine output has increased significantly and had a 24-hr negative balance of 2645mL. On 09/26, continued to have significant output with balance of -2505mL and further decrease in weight to 118.3kg. 09/26 received Lasix 80 IV x 1 dose then received an additional Lasix 40mg IV later in the day. Had further improvement with negative balance from review on 09/29, with negative about 2L and weight decreased to 116.5kg - Encourage ambulation and incentive spirometry. With numerous conversations provided. Will continue to provide coaching to patient to encourage ambulation/activity. - Compression stockings were ordered but appears patient unable to tolerate. - On Boost supplements. Need to increase protein intake to help increase osmotic pull into vasculature system. - - Boost supplements have been added TID. Acute on chronic CKD stage IV Baseline Cr ~1.7-2.0. Creatinine 09/22 3.02; 09/23 2.77; 09/24 2.88; Improved to 2.25 on 09/25 AM and then repeat 3pm showed 2.25. 09/26 improved further to 1.99. Further improved to 1.68 (baseline level). 09/29 value is 1.36. - Nephrology previously gave Albumin. will follow up on current recs. - No current indication for dialysis per nephro. Left Arm Swelling Localized swelling with mild tenderness to left anterior just distal to antecubital fossa with no overlying erythema, increased warmth, or signs of infection; appears consistent with hematoma from IV access attempts vs. infiltration of IV site vs. thrombus. - US LUE shows no DVT Atrial fibrillation, new - Converted with one dose of IV Lopressor - Continue PO metoprolol 25 mg daily - CHADVASC 9.8%. On dvt proph anticoagulation, no indication for bridge, will address adding Vitk antagonist vs NOAC at discharge. - In NSR currently. Bilateral knee pain - chronic - Severe and prevents patients from wanting to be moved in bed, let alone engaging in PT/OT - Voltaren gel QID - Advised nursing to use IV morphine 20-30 min prior to moving and therapy - Considerations that decreased alertness could be contributed to Morphine. She appears slightly more alert today and there wasn't note of receiving Morphine since last night. But difficult as want to treat pain in order for her to increase activity and also with goal to keep patient comfortable. Possible pneumonia on CT Scan, 09/19/18 - Previously reviewed CT results with Dr. Cotter, likely atelectasis and not pneumonia. No concerns for ARDS. Pt is no respiratory distress. - Abx as above. Diabetes, neuropathy - At home, on insulin and gabapentin 200 mg p.o. nightly - Hold gabapentin due to renal issues - Previous to 09/24, Insulin tightened to Lantus 35BID and tighter ISS scale given patient now eating better - She had glucose 09/24 morning of 57 for which nursing gave IV Dextrose which improved to value greater than 100. - On 09/24, Only required 11 of Novolog on 09/23 with Lantus 35 units BID. Discussed with pharmacy and placed consult for team approach to manage. Agree with discussion of holding Lantus on 09/24 morning and adjusting basal dosing. Acute on chronic anemia - Stable - Daily H/H HTN, hypertriglyceridemia - Continue ASA and gemfibrozil - Hold olmesartan at this time due to previous LISA, continue to hold at this time while diuresing and normotensive Hypothyroidism - Prior partial thyroidectomy. - Continue levothyroxine Breast cancer s/p mastectomy in 2000 Diet: Low-fat diet. DVT proph: Heparin twice daily. PT/OT: Ordered. Dispo: Admitted to PCU telemetry. Code status: DNR. (2) Cellulitis of left lower extremity: Discontinued Vancomycin IV. No signs of current active infection today, no increase in warmth, erythema now most likely post-inflammatory hyper pigmentation. (3) Cholelithiasis: (4) Abdominal pain: (5) Nausea & vomiting: (6) Hypothyroidism (acquired): (7) Diabetes mellitus: Currently consulting pharmacy for hyperglycemic management and following recs. (8) Chronic anemia: Total Time Total Time Spent Total Time Spent (In Minutes): <30 Total Time Includes: Examination of the Patient, Discharge Planning, Medication Reconciliation and Communication With Other Providers Discharge Plan Discharge Items Patient Disposition: Transfer [facility] Reason For Visit: ACUTE PANCREATITIS Discharge Diagnosis: Acute Pancreatitis Discharge Goals: Improve disease control and Therapeutic intervention Activity: Resume your previous activity Non-emergency contact: Primary Care Provider Call non-emergency contact if: you have any medication questions and your symptoms worsen Follow-up/Referrals: Narinder Caldwell MD [Primary Care Provider] - Diet: Carb Consistent or DM2 Diet Texture: Dental soft (bite-sized) Addtl Provider Instructions: You were admitted for pancreatitis and also were treated for cellulitis. You will need to have your gallbladder removed with surgery once medically stable from current illness. You are being transferred to rehabilitation for continued strength conditioning and continued care. You were also treated for leg cellulitis. Your course of care was complicated by weight gain from the inflammation from your pancreatitis and the IV fluids you received to treat your condition. Furthermore, your illness caused fatigue which then led to deconditioning. You will need to continue working with Physical and Occu pational therapy to increase your strength and help mobilize fluid for further weight loss back to your baseline. Prescriptions: New metoprolol succinate 25 mg Tablet Extended Release 24 Hr 25 mg PO QPM Qty: 30 RF: 0 diclofenac sodium [Voltaren] 1 % Gel 1 applic EXT QID Qty: 5 RF: 0 furosemide 80 mg tablet 80 mg PO QAM Qty: 30 RF: 0 Continued levothyroxine 75 mcg tablet 75 mcg PO QAM RF: 0 gemfibrozil 600 mg tablet 600 mg PO QAM RF: 0 gabapentin 100 mg capsule 200 mg PO HS RF: 0 olmesartan 40 mg tablet 40 mg PO QAM RF: 0 Multi-Vitamin HP/Minerals Capsule 1 cap PO QAM RF: 0 cholecalciferol (vitamin D3) [Vitamin D3] 2,000 unit Capsule 2,000 unit PO 3XWK RF: 0 omega 7-zls-lgy-fish oil [Fish Oil] 1,000 mg (120 mg-180 mg) Capsule 1,000 mg PO QAM RF: 0 Novolin 70/30 U-100 Insulin 100 unit/mL (70-30) Suspension 60 unit SUBCUT BID RF: 0 aspirin [Aspirin Low Dose] 81 mg Tablet,Delayed Release (Dr/Ec) 81 mg PO DAILY RF: 0 Discontinued torsemide 20 mg tablet 20 mg PO QAM RF: 0 torsemide 10 mg tablet 10 mg PO QAM RF: 0 acetaminophen [Mapap (acetaminophen)] 325 mg Tablet 650 mg PO Q4H PRN (Reason: Fever/pain) Qty: 1 RF: 0 Stand-Alone Forms: [facility] Discharge Orders: Discharge Order (Routine); Ordered 10/03/18 Ordered By: Suhail Soliz Skilled Items Patient informed of condition?: Yes DNR: Yes Discharge Level of Care: Skilled Communicable Disease: No Discharge Prognosis: Improving Admission Data Admit Date/Time: 09/10/18 18:36 Attending Provider: Cam Cerna Admit Provider: Rene Pandey Primary Care Provider: Narinder Caldwell Other Providers: Nicole Jurado ; Senthil Colunga ; Rene Pandey ; Maldonado Rose ; Rene Nelson ; Carolin Walsh ; Pato Vazquez ; Chris Avery ; Suhail Shell Jr ; Dmitry Rubin ; Rosie Araujo ; Corby Baumann ; Ekta Pressley ; Bebeto Weeks ; Krzysztof Bhatt ; Susan Slois Service: Medical Supervising Physician Co-Signing Physician Notes date of discharge now 10/03. see discharge summary generated on 10/03 for better details; 09/30 note started when it was thought that she would be going to [facility] that day. discharged was delayed several days due to insurance issues. *i am unable to sign / complete the chart without entering a code - please disregard the discharge code entered on this chart.* Resident Activity Tracking Resident Involvement: Resident Care Provided Care Provided: Adult Hospital Medicine
[2018-09-30] MEDS: GEMFIBROZIL 600 MG TAB PO SCH (08:26)
[2018-09-30] MEDS: OMEGA-3 (PURIFIED FISH OIL) 1 GM CAP PO SCH (08:26)
[2018-09-30] MEDS: DICLOFENAC SOD 1% GEL 100 GM TUBE EXT SCH ×4 (08:26→21:46)
[2018-09-30] MEDS: LACTOBACILLUS ACIDOPHILUS (FLORANEX) TAB PO SCH ×4 (08:26→20:42)
[2018-09-30] MEDS: ASPIRIN 81 MG ECTAB PO SCH (08:26)
[2018-09-30] MEDS: HEPARIN SOD 5,000 UNIT/0.5 ML VIAL SQ SCH ×2 (08:27→20:41)
[2018-09-30] MEDS: FUROSEMIDE 80 MG TAB PO SCH (08:27)
[2018-09-30] MEDS: INSULIN ASPART 100 UNITS/ML 3 ML PEN SC SCH ×4 (08:28→20:43)
--- NOTE | 2018-09-30 09:49 | Nephrology Progress Note ---
Date of Service September 30, 2018 Assessment & Plan (1) Acute kidney injury: ATN related to SIRS and decreased EAV associated w/ pancreatitis. Profound hypoalbuminemia with 3rd spacing of fluid. Creatinine improved to baseline. Azotemia persists but also improving. Poor nutrition remains a si gnificant concern. TBW remains significantly increased -- Continue Furosemide 80 mg po daily -- 09/[address] reviewed. Inflammation of pancreas and retroperitoneal space essentially unchanged. Rising creatinine & 3rd spacing of volume is concerning for ongoing inflammation and poor nutrition -- Patient anticipates transfer to [facility] today. I have asked by office staff to contact [facility] and arrange a Nephrology follow up in 2 weeks. Orders have been placed in [employer] to have CBC and CMP completed 2 days prior to office visit (2) Chronic kidney disease, stage IV (severe): -- Baseline creatinine ~ 1.7 - 2.0 (3) Pancreatitis: (4) Cholelithiasis: -- Surgery plan cholecystectomy once acute inflammation from pancreatitis has resolved and patient has appropriately recovered from acute illness (5) Hypertension: -- Blood pressure remains relatively low. Continue to hold Olmesartan (6) Diabetes mellitus: (7) Cellulitis of left lower extremity: -- Resolved Subjective Mrs. Mike was seen & examined in her hospital room this morning. Her was present at bedside. Mrs. Mike reports that her abdominal pain is markedly improved. She is tolerating her diet. She anticipates that she will be transferred to [facility] assisted today for physical therapy and elective cholecystectomy at a later date. Review of Systems Constitutional: no fever Respiratory: no dyspnea Cardiovascular: no chest pain Gastrointestinal: no abdominal pain, no vomiting and no diarrhea/loose stools Physical Exam Eyes: PERRL, conjunctivae normal, anicteric sclerae Neck: trachea midline, no thyromegaly Respiratory: normal respiratory effort, lungs clear to auscultation no respiratory distress Cardiovascular: RRR, no murmur, no edema Rate/Rhythm: regular rate and regular rhythm Extremities: + edema (3+ edema of the arms and legs) Gastrointestinal (Abdomen): Inspection/Auscultation: + abdomen distended and + hypoactive bowel sounds Percussion/Palpation: + abdomen tender; no guarding Results & Data Vital Signs (Past 12 Hours) Vital Signs Temp Pulse Resp BP Pulse Ox 09/30/18 07:11 36.3 C L 62 20 133/69 97 09/29/18 22:53 36.4 C L 71 20 125/70 94 Laboratory Results Laboratory Tests 09/28/18 09/29/18 05:55 05:11 WBC 4.62 L Hgb 8.5 L Hct 25.8 L Plt Count 207 Sodium 143 Potassium 4.3 Chloride 110 H Carbon Dioxide 28 BUN 81 H Creatinine 1.36 H Glucose 85 Calcium 8.6 Phosphorus 4.2 Albumin 1.6 L (1) Pancreatitis Acute pancreatitis complication: unspecified Chronicity: acute Pancreatitis type: other Qualified Code(s): K85.80 - Other acute pancreatitis without necrosis or infection
[2018-09-30] MEDS: MICONAZOLE NITRATE POWDER 43 GM EXT PRN (13:24)
[2018-09-30] MEDS: MoRPHine SULFATE 4 MG/ML 1 ML CARP\\VIAL IV PRN (13:26)
--- NOTE | 2018-09-30 15:29 | Family Medicine Progress Note ---
Date of Service September 30, 2018 Assessment & Plan (1) Pancreatitis: 83F was admitted on 10 September 2018 for nausea, abdominal pain, and distention. Found to have acute pancreatitis. Pt was started on Zosyn which was narrowed to a cephalosporin on 09/13/18 and then added Levoquin on 09/16/18 which was broadened to Vanc + Imipenem/ Cilastin on 09/19/18 WBC elevation, fevers. Blood cultures repeated on 09/10/18 and ID consulted on that day as well for persistent fevers. Then, completed course of Ertapenem providing coverage for GI microbial activity from pancreatitis. PMHx: HTN, HLD (TAG ~200), DM2, neuropathy, hypothyroidism: Prior partial thyroidectomy, breast cancer s/p mastectomy in 2000. Morbid obesity (BMI 40). 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 Acute pancreatitis likely 2/2 cholelithiasis - Initial worsening of abdominal pain symptoms after admission (now no complaints), but repeat CT on 09/14 showed persistent pancreatitis without cyst or necrosis. Empiric abx (initially Zosyn) started and narrowed to - Cephalosporin on 09/13/18 and then re-broadened on 09/19/18. Repeat CT Scan on 09/20/18 showed no acute changes however GB consistently inflamed. - Completed course of Ertapenem. No clinical signs of infection, will discontinue. - Surgery and GI following, plan cholecystectomy once acute inflammation from pancreatitis has resolved and patient is more medically sound. - Tolerating meals without pain or complications. - Repeat blood cultures negative. - Slow and indolent recovery, Day #20 of admission. - Ertapenem for cholecystitis discontinued. Diffuse Edema Pt with significant 17kg weight gain during admission likely all 3rd spaced given oliguria. Finally on 09/25, there were signs of improvement with about 2.5kg weight loss with one time doses of Lasix. On 09/25 24-hr cum I&O, her urine output has inc reased significantly and had a 24-hr negative balance of 2645mL. On 09/26, continued to have significant output with balance of -2505mL and further decrease in weight to 118.3kg. 09/26 received Lasix 80 IV x 1 dose then received an additional Lasix 40mg IV later in the day. Had further improvement with negative balance from review on 09/29, with negative about 2L and weight decreased to 116.5kg - Encourage ambulation and incentive spirometry. With numerous conversations provided. Will continue to provide coaching to patient to encourage ambulation/activity. - Compression stockings were ordered but appears patient unable to tolerate. - On Boost supplements. Need to increase protein intake to help increase osmotic pull into vasculature system. - - Boost supplements have been added TID. Acute on chronic CKD stage IV Baseline Cr ~1.7-2.0. Creatinine 09/22 3.02; 09/23 2.77; 09/24 2.88; Improved to 2.25 on 09/25 AM and then repeat 3pm showed 2.25. 09/26 improved further to 1.99. Further improved to 1.68 (baseline level). 09/29 value is 1.36. - Nephrology previously gave Albumin. will follow up on current recs. - No current indication for dialysis per nephro. Left Arm Swelling Localized swelling with mild tenderness to left anterior just distal to antecubital fossa with no overlying erythema, increased warmth, or signs of infection; appears consistent with hematoma from IV access attempts vs. infiltration of IV site vs. thrombus. - US LUE shows no DVT Atrial fibrillation, new - Converted with one dose of IV Lopressor - Continue PO metoprolol 25 mg daily - CHADVASC 9.8%. On dvt proph anticoagulation, no indication for bridge, will address adding Vitk antagonist vs NOAC at discharge. - In NSR currently. Bilateral knee pain - chronic - Severe and prevents patients from wanting to be moved in bed, let alone engaging in PT/OT - Voltaren gel QID - Advised nursing to use IV morphine 20-30 min prior to moving and therapy - Considerations that decreased alertness could be contributed to Morphine. She appears slightly more alert today and there wasn't note of receiving Morphine since last night. But difficult as want to treat pain in order for her to increase activity and also with goal to keep patient comfortable. Possible pneumonia on CT Scan, 09/19/18 - Previously reviewed CT results with Dr. Cotter, likely atelectasis and not pneumonia. No concerns for ARDS. Pt is no respiratory distress. - Abx as above. Diabetes, neuropathy - At home, on insulin and gabapentin 200 mg p.o. nightly - Hold gabapentin due to renal issues - Previous to 09/24, Insulin tightened to Lantus 35BID and tighter ISS scale gi tisha patient now eating better - She had glucose 09/24 morning of 57 for which nursing gave IV Dextrose which improved to value greater than 100. - On 09/24, Only required 11 of Novolog on 09/23 with Lantus 35 units BID. Discussed with pharmacy and placed consult for team approach to manage. Agree with discussion of holding Lantus on 09/24 morning and adjusting basal dosing. Acute on chronic anemia - Stable - Daily H/H HTN, hypertriglyceridemia - Continue ASA and gemfibrozil - Hold olmesartan at this time due to previous LISA, continue to hold at this time while diuresing and normotensive Hypothyroidism - Prior partial thyroidectomy. - Continue levothyroxine Breast cancer s/p mastectomy in 2000 Diet: Low-fat diet. DVT proph: Heparin twice daily. PT/OT: Ordered. Dispo: Downgraded to Med/Surg, ready for discharge to SNF, was planned for 09/30, but no bed availability until 10/02. Code status: DNR. (2) Cellulitis of left lower extremity: Discontinued Vancomycin IV. No signs of current active infection today, no increase in warmth, erythema now most likely post-inflammatory hyper pigmentation. (3) Cholelithiasis: (4) Abdominal pain: (5) Nausea & vomiting: (6) Hypothyroidism (acquired): (7) Diabetes mellitus: Currently consulting pharmacy for hyperglycemic management and following recs. (8) Chronic anemia: Supervising Physician Co-Signing Physician Notes I personally examined the patient and verified all brooks points of history and exam, discussed case, and agree with decision making with Dr Soliz. slowly feeling better. No new complaints today. Expected to go to SNF with a rehab emphasis. Later we were informed that her SNF stay was denied by insurance due to "her being too ill". Call to appeal, insurance review docs initial point of protest was that the patient was third spacing fluids, I discussed that this was because of severe malnutrition and that she is taking in orally, but this will likely take a month or more to improve. Then she wanted to deny due to the patient's poor ability with therapy, I discussed that the patient was quite deconditioned and that right now working up from being able to only do therapy in the bed is likely her baseline. Insurance review physician then asked how she did with therapy today, when I stated that the patient decli christina therapy today, insurance review doc said that she would not be able to approve SNF without therapy today. Because she was going to deny based on yesterday's therapy, I asked the reviewing physician what our disposition for the patient would be if she did as poorly tomorrow with therapy as she did yesterday, the insurance review and physician would not give an answer only repeating that she wanted to see how she did with therapy tomorrow. I repeatedly asked what our disposition for the patient would be if she is not doing better with therapy, and she refused to give a straight answer. 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 vitals noted nad breathing unlabored no pallor or icterus. edema maybe sl less than yesterday, stable at worst. when i revisit to discuss insurance denial, she is more animated and frustrated. acute pancreatitis - gallstone related, now resolved. agree w surgery decision to delay choley given her kelly course and overall frailty, as well as clinical improvement in gallbladder. doing well off abx. diffuse edema/anasarca - related to low albumin and immobility. improving- continue cautious diuresis and increased PO intake. ARF - improved - ongoing follow up. severe acute protein malnutrition - relates to severity / prolonged course of acute illness. doing well w PO intake deconditioning - continue PT/OT otherwise as above Subjective No acute events reported overnight. Discharge today was planned but delayed because of bed availability. Most likely , in 2 days for discharge/bed availability at SNF. Dana notes improvement in her leg swelling, she notes improved mobility in legs because of decrease in swelling. No new acute complaints/concerns. Physical Exam Constitutional: + morbidly obese and cooperative Eyes: + anicteric sclerae and EOM intact bilaterally Neck: trachea midline Respiratory: no respiratory distress Auscultation: + diminished lung sounds (at bases, otherwise improved from last week's exam) Cardiovascular: Rate/Rhythm: regular rate and regular rhythm Extremities: + edema Gastrointestinal (Abdomen): Inspection/Auscultation: + abdomen distended and normal bowel sounds Percussion/Palpation: abdomen nontender, no guarding and abdomen not rigid Neurologic: awake Psychiatric: Orientation: alert (increased alertness as compared to last week.) and oriented x 3 Affect: + flat affect Results & Data Vital Signs (Past 12 Hours) Vital Signs Temp Pulse Resp BP Pulse Ox 09/30/18 14:57 36.6 C 75 20 138/71 93 09/30/18 07:11 36.3 C L 62 20 133/69 97 PG Care Time/CCT Total # of Minutes Spent Total Time Spent with Patient: Total time spent is greater than 50% in coordination of care (as documented) at patient's floor/unit and/or counseling patient: Resident Activity Tracking Resident Involvement: Resident Care Provided Care Provided: Adult Hospital Medicine (1) Pancreatitis Acute pancreatitis complication: unspecified Chronicity: acute Pancreatitis type: other Qualified Code(s): K85.80 - Other acute pancreatitis without necrosis or infection (2) Nausea & vomiting Vomiting Intractability: unspecified Vomiting type: unspecified Qualified Code(s): R11.2 - Nausea with vomiting, unspecified (3) Abdominal pain Abdominal location: unspecified location Qualified Code(s): R10.9 - Unspecified abdominal pain
--- NOTE | 2018-09-30 18:12 | Infectious Disease Progress Nt ---
Date of Service September 30, 2018 Assessment & Plan (1) Pancreatitis: Patient with acute pancreatitis, cholecystitis, and probable left lower extremity cellulitis with fevers and leukocytosis, responded to Abx, now improving off Rx. For discharge when SNF bed available. (2) Cellulitis of left lower extremity: Subjective Patient is resting comfortably in bed today in no acute distress. No acute complaints and denies any acute chest pain, shortness of breath, back pain, lower extremity pain, fever, chills, sweats, abdominal pain, dysuria, or any other acute complaints. Review of Systems Review of Systems: All systems reviewed & are unremarkable except as noted in HPI & below Physical Exam Constitutional: WD/WN, vitals as above + morbidly obese and comfortable; no acute distress Eyes: PERRL, conjunctivae normal, anicteric sclerae ENMT: external ear and nose normal, oropharynx normal Neck: trachea midline, no thyromegaly neck nontender Respiratory: normal respiratory effort, lungs clear to auscultation normal percussion; does not use accessory muscles Cardiovascular: Rate/Rhythm: regular rate and regular rhythm Heart Sounds: normal S1 and normal S2; no gallop, no murmur and no cardiac rub Vessels: normal peripheral pulses; no JVD Gastrointestinal (Abdomen): normal bowel sounds, soft, nontender, no hepatosplenomegaly Inspection/Auscultation: + abdomen distended Percussion/Palpation: no abdominal mass Musculoskeletal: no cyanosis or clubbing, extremities motor strength 5/5 Spine: thoracic spine normal to inspection and lumbar spine normal to inspection; no cervical spinal tenderness Skin: normal turgor and + lesion Neurologic: patellar DTR's 2+ bilat, sensation intact no focal motor deficits Psychiatric: A+Ox3, euthymic affect Orientation: cooperative Lymphatic: no cervical or axillary lymphadenopathy no inguinal lymphadenopathy Results & Data Vital Signs (Past 12 Hours) Vital Signs Temp Pulse Resp BP Pulse Ox 09/30/18 14:57 36.6 C 75 20 138/71 93 09/30/18 07:11 36.3 C L 62 20 133/69 97 (1) Pancreatitis Acute pancreatitis complication: unspecified Chronicity: acute Pancreatitis type: other Qualified Code(s): K85.80 - Other acute pancreatitis without necrosis or infection
[2018-09-30] MEDS: METOPROLOL SUCC 25MG EXT REL TAB PO SCH (20:41)
[2018-09-30] MEDS: INSULIN GLARGINE SOLOSTAR 100 UNITS/ML 3 ML PEN SC SCH (20:42)
[2018-10-01] MEDS: LEVOTHYROXINE SODIUM 75 MCG TABLET PO SCH (05:48)
[2018-10-01 06:51] LABS: BUN Creatinine Ratio 50.8 (10-20); Calcium 9.1 mg/dl (8.5-10.1); Est GFR (African American) 39.4
[2018-10-01] MEDS: FUROSEMIDE 80 MG TAB PO SCH (08:03)
[2018-10-01] MEDS: CHOLECALCIFEROL 1,000 UNITS TAB PO SCH (08:03)
[2018-10-01] MEDS: OMEGA-3 (PURIFIED FISH OIL) 1 GM CAP PO SCH (08:03)
[2018-10-01] MEDS: GEMFIBROZIL 600 MG TAB PO SCH (08:03)
[2018-10-01] MEDS: LACTOBACILLUS ACIDOPHILUS (FLORANEX) TAB PO SCH ×4 (08:03→20:44)
[2018-10-01] MEDS: HEPARIN SOD 5,000 UNIT/0.5 ML VIAL SQ SCH ×2 (08:03→20:44)
[2018-10-01] MEDS: ASPIRIN 81 MG ECTAB PO SCH (08:03)
[2018-10-01] MEDS: DICLOFENAC SOD 1% GEL 100 GM TUBE EXT SCH ×4 (08:07→20:46)
[2018-10-01] MEDS: INSULIN ASPART 100 UNITS/ML 3 ML PEN SC SCH ×4 (08:47→20:46)
--- NOTE | 2018-10-01 09:07 | Nephrology Progress Note ---
Date of Service October 01, 2018 Assessment & Plan (1) Acute kidney injury: ATN related to SIRS and decreased EAV associated w/ pancreatitis has resolved. Profound hypoalbuminemia with 3rd spacing of fluid. Creatinine improved to baseline. Azotemia persists but also improving. Poor nutrition remains a significant concern. TBW remains significantly increased -- Continue Furosemide 80 mg po daily -- Patient anticipates transfer to [facility] tomorrow pending insurance approval. I have asked by office staff to arrange a Nephrology follow up in 2 weeks. Orders have been placed in [employer] to have CBC and CMP completed 2 days prior to office visit (2) Chronic kidney disease, stage IV (severe): -- Baseline creatinine ~ 1.7 - 2.0 (3) Pancreatitis: (4) Cholelithiasis: -- Surgery plan cholecystectomy once acute inflammation from pancreatitis has resolved and patient has recovered from acute illness (5) Hypertension: -- Blood pressure remains relatively low. Continue to hold Olmesartan (6) Diabetes mellitus: (7) Cellulitis of left lower extremity: -- Resolved Subjective Mrs. Mike was seen & examined in her hospital room this morning. She reports that her abdominal and back pain have resolved. She is tolerating a regular diet. She reports brisk UO and notes that her peripheral edema has improved. Review of Systems Constitutional: no fever Respiratory: no dyspnea Cardiovascular: no chest pain and no palpitations Gastrointestinal: no abdominal pain, no vomiting and no diarrhea/loose stools Genitourinary: no dysuria and no hematuria Physical Exam Constitutional: + obese Eyes: PERRL, conjunctivae normal, anicteric sclerae Neck: trachea midline, no thyromegaly Respiratory: normal respiratory effort, lungs clear to auscultation no respiratory distress Cardiovascular: RRR, no murmur, no edema Rate/Rhythm: regular rate and regular rhythm Extremities: + edema (1+ edema of the arms and legs) Gastrointestinal (Abdomen): Inspection/Auscultation: + abdomen distended and + hypoactive bowel sounds Percussion/Palpation: abdomen nontender and no guarding Skin: no erythema Results & Data Vital Signs (Past 12 Hours) Vital Signs Temp Pulse Pulse Resp BP Pulse Ox 10/01/18 07:17 36.4 C L 68 20 138/77 98 09/30/18 22:34 36.5 C 77 20 141/71 H 93 Laboratory Results Laboratory Tests 09/28/18 10/01/18 10/01/18 05:55 06:05 07:02 WBC 4.62 L Hgb 8.5 L Hct 25.8 L Plt Count 207 Sodium 144 Potassium 4.0 Chloride 107 Carbon Dioxide 28 BUN 73 H Creatinine 1.43 H Glucose 108 H (1) Pancreatitis Acute pancreatitis complication: unspecified Chronicity: acute Pancreatitis type: other Qualified Code(s): K85.80 - Other acute pancreatitis without necrosis or infection
--- NOTE | 2018-10-01 12:12 | Family Medicine Progress Note ---
Date of Service October 01, 2018 Assessment & Plan (1) Pancreatitis: 83F was admitted on 10 September 2018 for nausea, abdominal pain, and distention. Found to have acute pancreatitis. Pt was started on Zosyn which was narrowed to a cephalosporin on 09/13/18 and then added Levaquin on 09/16/18 which was broadened to Vanc + Imipenem/ Cilastin on 09/19/18 WBC elevation, fevers. Blood cultures repeated on 09/10/18 and ID consulted on that day as well for persistent fevers. Then, completed course of Ertapenem providing coverage for GI microbial activity from pancreatitis. PMHx: HTN, HLD (TAG ~200), DM2, neuropathy, hypothyroidism: Prior partial thyroidectomy, breast cancer s/p mastectomy in 2000. Morbid obesity (BMI 40). 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 Acute pancreatitis likely 2/2 cholelithiasis - Initial worsening of abdominal pain symptoms after admission (now no complaints), but repeat CT on 09/14 showed persistent pancreatitis without cyst or necrosis. Empiric abx (initially Zosyn) started and narrowed to - Cephalosporin on 09/13/18 and then re-broadened on 09/19/18. Repeat CT Scan on 09/20/18 showed no acute changes however GB consistently inflamed. - Completed course of Ertapenem. No clinical signs of infection, will discontinue. - Surgery and GI following, plan cholecystectomy once acute inflammation from pancreatitis has resolved and patient is more medically sound. - Tolerating meals without pain or complications. - Repeat blood cultures negative. - Slow and indolent recovery, Day #21 of admission. - Ertapenem for cholecystitis discontinued. Diffuse Edema Pt with significant 17kg weight gain during admission likely all 3rd spaced given oliguria. Finally on 09/25, there were signs of improvement with about 2.5kg weight loss with one time doses of Lasix. On 09/25 24-hr cum I&O, her urine output has inc reased significantly and had a 24-hr negative balance of 2645mL. On 09/26, continued to have significant output with balance of -2505mL and further decrease in weight to 118.3kg. 09/26 received Lasix 80 IV x 1 dose then received an additional Lasix 40mg IV later in the day. Had further improvement with negative balance from review on 09/29, with negative about 2L and weight decreased to 116.5kg - Encourage ambulation and incentive spirometry. With numerous conversations provided. Will continue to provide coaching to patient to encourage ambulation/activity. - Compression stockings were ordered but appears patient unable to tolerate. - On Boost supplements. Need to increase protein intake to help increase osmotic pull into vasculature system. - - Boost supplements have been added TID. Acute on chronic CKD stage IV Baseline Cr ~1.7-2.0. Creatinine 09/22 3.02; 09/23 2.77; 09/24 2.88; Improved to 2.25 on 09/25 AM and then repeat 3pm showed 2.25. 09/26 improved further to 1.99. Further improved to 1.68 (baseline level). 09/29 value is 1.36. - Nephrology previously gave Albumin. will follow up on current recs. - No current indication for dialysis per nephro. Left Arm Swelling Localized swelling with mild tenderness to left anterior just distal to antecubital fossa with no overlying erythema, increased warmth, or signs of infection; appears consistent with hematoma from IV access attempts vs. infiltration of IV site vs. thrombus. - US LUE shows no DVT Atrial fibrillation, new - Converted with one dose of IV Lopressor - Continue PO metoprolol 25 mg daily - CHADVASC 9.8%. On dvt proph anticoagulation, no indication for bridge, will address adding Vitk antagonist vs NOAC at discharge. - In NSR currently. Bilateral knee pain - chronic - Severe and prevents patients from wanting to be moved in bed, let alone engaging in PT/OT - Voltaren gel QID - Advised nursing to use IV morphine 20-30 min prior to moving and therapy - Considerations that decreased alertness could be contributed to Morphine. She appears slightly more alert today and there wasn't note of receiving Morphine since last night. But difficult as want to treat pain in order for her to increase activity and also with goal to keep patient comfortable. Possible pneumonia on CT Scan, 09/19/18 - Previously reviewed CT results with Dr. Cotter, likely atelectasis and not pneumonia. No concerns for ARDS. Pt is no respiratory distress. - Abx as above. Diabetes, neuropathy - At home, on insulin and gabapentin 200 mg p.o. nightly - Hold gabapentin due to renal issues - Previous to 09/24, Insulin tightened to Lantus 35BID and tighter ISS scale gi tisha patient now eating better - She had glucose 09/24 morning of 57 for which nursing gave IV Dextrose which improved to value greater than 100. - On 09/24, Only required 11 of Novolog on 09/23 with Lantus 35 units BID. Discussed with pharmacy and placed consult for team approach to manage. Agree with discussion of holding Lantus on 09/24 morning and adjusting basal dosing. Acute on chronic anemia - Stable - Daily H/H HTN, hypertriglyceridemia - Continue ASA and gemfibrozil - Hold olmesartan at this time due to previous LISA, continue to hold at this time while diuresing and normotensive Hypothyroidism - Prior partial thyroidectomy. - Continue levothyroxine Breast cancer s/p mastectomy in 2000 Diet: Low-fat diet. DVT proph: Heparin twice daily. PT/OT: Ordered. Dispo: Downgraded to Med/Surg, ready for discharge to SNF Code status: DNR. (2) Cellulitis of left lower extremity: (3) Cholelithiasis: (4) Abdominal pain: (5) Nausea & vomiting: (6) Hypothyroidism (acquired): (7) Diabetes mellitus: (8) Chronic anemia: Supervising Physician Co-Signing Physician Notes I personally examined the patient and verified all brooks points of history and exam, discussed case, and agree with decision making with Dr Jovel. feeling about the same. working on appeals process. also called darron myself to ask if possibly case could be reviewed by a different medical artist as i believe the director who reviewed mrs funes's case seemed to not look at her situation rationally. they don't believe this will be able to be done, but are at least willing to look into it. vitals noted nad breathing unlabored no pallor or icterus. no focal neuro deficits. acute pancreatitis - gallstone related, now resolved. agree w surgery decision to delay choley given her kelly course and overall frailty, as well as clinical improvement in gallbladder. showing no signs of worsening off abx. diffuse edema/anasarca - related to low albumin and immobility. showing slow improvement. increased mobility would likely help greatly. ARF - improved - ongoing follow up; appreciate nephro assistance in management. severe acute protein malnutrition - relates to severity / prolonged course of acute illness. is shwoing good overall PO intake. deconditioning - continue PT/OT as best as possible while appeals process under way. unfortunately insurance physician decision to deny mrs funes a higher level of rehab care than we are able to provide in hospital (snf) is putting her at risk for further deconditioning and weakness, as well as the risk of nosocomial infections while remaining inpatient. she is certainly too frail / weak for any consideration of home, but is well enough that remaining in the hospital is not providing her any meaningful benefit. otherwise as above Subjective Patient is resting comfortably in bed today in no acute distress. No acute complaints and denies any acute chest pain, shortness of breath, back pain, lower extremity pain, fever, chills, sweats, abdominal pain, dysuria, or any other acute complaints. Review of Systems Review of Systems: All systems reviewed & are unremarkable except as noted in HPI & below Physical Exam Constitutional: WD/WN, vitals as above + acute distress, + obese and + edematous Eyes: + anicteric sclerae ENMT: external ear and nose normal, oropharynx normal Neck: trachea midline, no thyromegaly Respiratory: + abnormal respiratory effort, no respiratory distress, no labored breathing and no retractions decreased breath sounds at the bases Cardiovascular: Rate/Rhythm: regular rate and regular rhythm Extremities: + edema (Significantly improved, continued edema over the abdomen and extremities) Gastrointestinal (Abdomen): normal bowel sounds, soft, nontender, no hepatosplenomegaly Skin: Lower extremity stasis dermatitis Psychiatric: A+Ox3, euthymic affect Results & Data Vital Signs (Past 12 Hours) Vital Signs Temp Pulse Resp BP Pulse Ox 10/01/18 11:05 98 10/01/18 07:17 36.4 C L 68 20 138/77 98 PG Care Time/CCT Total # of Minutes Spent Total Time Spent with Patient: Total time spent is greater than 50% in coordination of care (as documented) at patient's floor/unit and/or counseling patient: Resident Activity Tracking Resident Involvement: Resident Care Provided Care Provided: Adult Hospital Medicine (1) Pancreatitis Acute pancreatitis complication: unspecified Chronicity: acute Pancreatitis type: other Qualified Code(s): K85.80 - Other acute pancreatitis without necrosis or infection (2) Nausea & vomiting Vomiting Intractability: unspecified Vomiting type: unspecified Qualified Code(s): R11.2 - Nausea with vomiting, unspecified (3) Abdominal pain Abdominal location: unspecified location Qualified Code(s): R10.9 - Unspecified abdominal pain
--- NOTE | 2018-10-01 15:33 | Pharmacy Report ---
Pharmacy Glycemic Short Note 2 - Date of Service October 01, 2018 - Glycemic Short BSG Results (Last 24 hours): 09/30/18 09/30/18 10/01/18 16:19 20:34 06:05 Glucose 108 H POC Glucose 190 H 275 H 10/01/18 10/01/18 10/01/18 07:26 11:43 11:45 Glucose POC Glucose 129 H 241 H 255 H ASSESSMENT: 10/01: * Patient received total 98 units of insulin yesterday of which 40 units were from basal Lantus and 58 units from Novolog bolus. * Fasting BSG = 108 this AM. Will continue current Lantus dosing per scale at HS. * Post prandial BSGs have been high (above 200 at lunch and bedtime yesterday and again at lunch today). Patient has been consuming more carbs. * Novolog carb ratio was further tightened today to 5 starting with dinner. Correction factor was also slightly tightened with lunch today. 09/29: * Bsg's continue to be adequate, however there could be some improvement in post prandial BSGs. I will slightly tighten carb coverage to help address this. I will also order a slight dose reduction for evening lantus scale. Fasting BSGs are excellent, but do not want to be overly aggressive. Will loosen and monitor trend. She required 83 units of insulin yesterday. 09/27 * Ms. Mike's BSG continue to be well controlled. Poor PO intake continues. Invanz continues. She required 56 units of insulin yesterday. As expected she is basal heavy. No acute changes in insulin requirements are expected, will continue with current orders. PLAN FOR INPATIENT GLYCEMIC CONTROL: * Basal insulin * Lantus scale SQ @HS, see MAR for further details * Bolus insulin * NovoLog per scale ACHS or Q6hrs while NPO * Goal Range: Low 120 mg/dL - High 160 mg/dL * Correction Factor: 18 mg/dL/unit * Nutritional / Prandial insulin per carb ratio of 1 unit per 5 grams CHO consumed PLAN FOR DISCHARGE: Per ADA recommendations her target A1C is likely <8.5/8.0%. A1C of 7.0% is not necessary and may actually predispose her to lows. Further, she will not benefit from tight BSG control. I recommend decreasing her 70/30 insulin doses by 15-20% to reach a target A1C of ~8.
[2018-10-01] MEDS: INSULIN GLARGINE SOLOSTAR 100 UNITS/ML 3 ML PEN SC SCH (20:44)
[2018-10-01] MEDS: METOPROLOL SUCC 25MG EXT REL TAB PO SCH (20:46)
[2018-10-02] MEDS: LEVOTHYROXINE SODIUM 75 MCG TABLET PO SCH (06:53)
[2018-10-02] MEDS: DICLOFENAC SOD 1% GEL 100 GM TUBE EXT SCH ×4 (07:40→20:04)
[2018-10-02] MEDS: ASPIRIN 81 MG ECTAB PO SCH (07:40)
[2018-10-02] MEDS: OMEGA-3 (PURIFIED FISH OIL) 1 GM CAP PO SCH (07:40)
[2018-10-02] MEDS: FUROSEMIDE 80 MG TAB PO SCH (07:40)
[2018-10-02] MEDS: GEMFIBROZIL 600 MG TAB PO SCH (07:40)
[2018-10-02] MEDS: LACTOBACILLUS ACIDOPHILUS (FLORANEX) TAB PO SCH ×4 (07:40→20:03)
[2018-10-02 07:51] LABS: Hematocrit (blood only) 26.8 % (37-47); Hemoglobin 8.8 g/dL (12.0-16.0); Mean Corpuscular Hgb Conc 32.8 g/dL (32-36); Mean Corpuscular Volume 93.4 fL (80-100); Mean Platelet Volume 10.4 fL (7.4-10.4); Platelet Count 147 K/uL (130-400); RDW Coefficient of Variation 14.8 % (11.5-14.5); RDW Standard Deviation 49.5 fL (36.4-46.3); Red Blood Count 2.87 M/uL (4.2-5.4); White Blood Count 5.43 K/uL (4.8-10.8)
[2018-10-02 08:24] LABS: BUN Creatinine Ratio 53.7 (10-20); Calcium 9.3 mg/dl (8.5-10.1); Creatinine Clr Calc Pharmacy 44.6 ml/min; Est GFR (African American) 47.8; Est GFR (Non-African American) 41.2; Potassium 3.7 mmol/L (3.5-5.1)
[2018-10-02] MEDS: HEPARIN SOD 5,000 UNIT/0.5 ML VIAL SQ SCH ×2 (08:31→20:04)
[2018-10-02] MEDS: INSULIN ASPART 100 UNITS/ML 3 ML PEN SC SCH ×4 (08:31→21:02)
--- NOTE | 2018-10-02 09:28 | Nephrology Progress Note ---
Date of Service October 02, 2018 Assessment & Plan (1) Acute kidney injury: ATN related to SIRS and decreased EAV associated w/ pancreatitis has resolved. Profound hypoalbuminemia with 3rd spacing of fluid. Creatinine improved to baseline. -- Continue Furosemide 80 mg po daily. Patient is now mobilizing ascitic fluid and peripheral edema -- Patient anticipates returning home after she has met goals with PT. I have asked by office staff to arrange a Nephrology follow up in 2 weeks. Orders have been placed in [employer] to have CBC and CMP completed 2 days prior to office visit (2) Chronic kidney disease, stage IV (severe): -- Baseline creatinine ~ 1.7 - 2.0 (3) Pancreatitis: (4) Cholelithiasis: -- Surgery plan cholecystectomy once acute inflammation from pancreatitis has resolved and patient has recovered from acute illness (5) Hypertension: -- Blood pressure remains relatively low. Continue to hold Olmesartan Subjective Mrs. Mike was seen & examined in her hospital room this morning. She denies fever, abdominal or back pain. She is tolerating her diet. Mrs. Mike notes that her abdominal swelling and peripheral edema is improving. She was able to sit on the side of the bed yesterday and participate w/ PT for strengthening exercises. Review of Systems Constitutional: no fever Respiratory: no cough and no dyspnea Cardiovascular: + edema; no chest pain and no palpitations Gastrointestinal: no nausea, no vomiting and no diarrhea/loose stools Genitourinary: no dysuria and no hematuria Physical Exam Constitutional: + obese Eyes: PERRL, conjunctivae normal, anicteric sclerae Neck: trachea midline, no thyromegaly Respiratory: normal respiratory effort, lungs clear to auscultation no respiratory distress Cardiovascular: RRR, no murmur, no edema Rate/Rhythm: regular rate and regular rhythm Extremities: + edema (1+ edema of the arms and legs) Gastrointestinal (Abdomen): Inspection/Auscultation: + abdomen distended and + hypoactive bowel sounds Percussion/Palpation: abdomen nontender and no guarding Skin: no erythema Results & Data Vital Signs (Past 12 Hours) Vital Signs Temp Pulse Resp BP Pulse Ox 10/02/18 07:13 36.4 C L 71 16 125/66 94 10/01/18 22:53 36.5 C 70 18 137/66 94 Laboratory Results Laboratory Tests 10/02/18 10/02/18 07:32 07:32 WBC 5.43 Hgb 8.8 L Hct 26.8 L Plt Count 147 Sodium 145 Potassium 3.7 Chloride 108 H Carbon Dioxide 30 BUN 66 H Creatinine 1.22 H Glucose 85 (1) Pancreatitis Acute pancreatitis complication: unspecified Chronicity: acute Pancreatitis type: other Qualified Code(s): K85.80 - Other acute pancreatitis without necrosis or infection
--- NOTE | 2018-10-02 11:03 | Family Medicine Progress Note ---
Date of Service October 02, 2018 Assessment & Plan (1) Pancreatitis: 83F was admitted on 10 September 2018 for nausea, abdominal pain, and distention. Found to have acute pancreatitis. Pt was started on Zosyn which was narrowed to a cephalosporin on 09/13/18 and then added Levaquin on 09/16/18 which was broadened to Vanc + Imipenem/ Cilastin on 09/19/18 WBC elevation, fevers. Blood cultures repeated on 09/10/18 and ID consulted on that day as well for persistent fevers. Then, completed course of Ertapenem providing coverage for GI microbial activity from pancreatitis. She is cleared for discharge, but currently working to help her obtain authorization so she can leave hospital setting for more appropriate care setting. PMHx: HTN, HLD (TAG ~200), DM2, neuropathy, hypothyroidism: Prior partial thyroidectomy, breast cancer s/p mastectomy in 2000. Morbid obesity (BMI 40). 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 Acute pancreatitis likely 2/2 cholelithiasis - Initial worsening of abdominal pain symptoms after admission (now no complaints), but repeat CT on 09/14 showed persistent pancreatitis without cyst or necrosis. Empiric abx (initially Zosyn) started and narrowed to - Cephalosporin on 09/13/18 and then re-broadened on 09/19/18. Repeat CT Scan on 09/20/18 showed no acute changes however GB consistently inflamed. - Completed course of Ertapenem. No clinical signs of infection, will discontinue. - Surgery and GI following, plan cholecystectomy once acute inflammation from pancreatitis has resolved and patient is more medically sound. - Tolerating meals without pain or complications. - Repeat blood cultures negative. - Slow and indolent recovery, but improving, Day #22 of admission. - Ertapenem for cholecystitis discontinued. Diffuse Edema Pt with significant 17kg weight gain during admission likely all 3rd spaced give n oliguria. Finally on 09/25, there were signs of improvement with about 2.5kg weight loss with one time doses of Lasix. On 09/25 24-hr cum I&O, her urine output has increased significantly and had a 24-hr negative balance of 2645mL. On 09/26, continued to have significant output with balance of -2505mL and further decrease in weight to 118.3kg. 09/26 received Lasix 80 IV x 1 dose then received an additional Lasix 40mg IV later in the day. Had further improvement with negative balance from review on 09/29, with negative about 2L and weight decreased to 116.5kg - Encourage ambulation and incentive spirometry. With numerous conversations provided. Will continue to provide coaching to patient to encourage ambulation/activity. - Compression stockings were ordered but appears patient unable to tolerate. - On Boost supplements. Need to increase protein intake to help increase osmotic pull into vasculature system. - - Boost supplements have been added TID. Acute on chronic CKD stage IV Baseline Cr ~1.7-2.0. Creatinine 09/22 3.02; 09/23 2.77; 09/24 2.88; Improved to 2.25 on 09/25 AM and then repeat 3pm showed 2.25. 09/26 improved further to 1.99. Further improved to 1.68 (baseline level). 09/29 value is 1.36. 10/02 is 1.22. - Nephrology previously gave Albumin. will follow up on current recs. - No current indication for dialysis per nephro. Left Arm Swelling Localized swelling with mild tenderness to left anterior just distal to antecubital fossa with no overlying erythema, increased warmth, or signs of infection; appears consistent with hematoma from IV access attempts vs. infiltration of IV site vs. thrombus. - US LUE shows no DVT Atrial fibrillation, new - Converted with one dose of IV Lopressor - Continue PO metoprolol 25 mg daily - CHADVASC 9.8%. On dvt proph anticoagulation, no indication for bridge, will address adding Vitk antagonist vs NOAC at discharge. - In NSR currently. Bilateral knee pain - chronic - Severe and prevents patients from wanting to be moved in bed, let alone engaging in PT/OT - Voltaren gel QID - Advised nursing to use IV morphine 20-30 min prior to moving and therapy - Considerations that decreased alertness could be contributed to Morphine. She appears slightly more alert today and there wasn't note of receiving Morphine since last night. But difficult as want to treat pain in order for her to increase activity and also with goal to keep patient comfortable. Possible pneumonia on CT Scan, 09/19/18 - Previously reviewed CT results with Dr. Cotter, likely atelectasis and not pneumonia. No concerns for ARDS. Pt is no respiratory distress. - Abx as above. Diabetes, neuropathy - At home, on insulin and gabapentin 200 mg p.o. nightly - Hold gabapentin due to renal issues - Previous to 09/24, Insulin tightened to Lantus 35BID and tighter ISS scale given patient now eating better - She had glucose 09/24 morning of 57 for which nursing gave IV Dextrose which improved to value greater than 100. - On 09/24, Only required 11 of Novolog on 09/23 with Lantus 35 units BID. Discussed with pharmacy and placed consult for team approach to manage. Agree with discussion of holding Lantus on 09/24 morning and adjusting basal dosing. Acute on chronic anemia - Stable - Daily H/H HTN, hypertriglyceridemia - Continue ASA and gemfibrozil - Hold olmesartan at this time due to previous LISA, continue to hold at this time while diuresing and normotensive Hypothyroidism - Prior partial thyroidectomy. - Continue levothyroxine Breast cancer s/p mastectomy in 2000 Diet: Low-fat diet. DVT proph: Heparin twice daily. PT/OT: Ordered. Dispo: Downgraded to Med/Surg, ready for discharge to SNF Code status: DNR. (2) Cellulitis of left lower extremity: Discontinued Vancomycin IV. No signs of current active infection today, no increase in warmth, erythema now most likely post-inflammatory hyper pigmentation. (3) Cholelithiasis: (4) Abdominal pain: (5) Nausea & vomiting: (6) Hypothyroidism (acquired): (7) Diabetes mellitus: Currently consulting pharmacy for hyperglycemic management and following recs. (8) Chronic anemia: Supervising Physician Co-Signing Physician Notes I personally examined the patient and verified all brooks points of history and exam, discussed case, and agree with decision making with Dr Soliz. no new complaints. still waiting on placement decisions. pt feeling about the same. all questions answered to the best of my ability. vitals noted nad breathing unlabored no pallor or icterus. no focal neuro deficits. acute pancreatitis - gallstone related, now resolved. cholecystectomy in distant future. diffuse edema/anasarca - related to low albumin and immobility. showing slow improvement. increased mobility would likely help greatly. continue lasix, mobility as possible, periodic BMP ARF - improved - ongoing follow up; appreciate nephro assistance in management. periodic BMP severe acute protein malnutrition - relates to severity / prolonged course of acute illness. is showing good overall PO intake. deconditioning - continue PT/OT as best as possible while appeals process under way. unfortunately insurance physician decision to deny mrs funes a higher level of rehab care than we are able to provide in hospital (snf) is putting her at risk for further deconditioning and weakness, as well as the risk of nosocomial infections while remaining inpatient. she is certainly too frail / weak for any consideration of home, but is well enough that remaining in the hospital is not providing her any meaningful benefit. otherwise as above Suyapa Dana notes she continues to feeling improved today. She is understandably frustrated by insurance denying her transfer for continued rehab. She has had good appetite this morning and notes decreasing swelling. No complaints of shortness of breath, chest pain, nausea/vomiting/diarrhea, fever or chills. Physical Exam Constitutional: + morbidly obese and cooperative Eyes: + anicteric sclerae and EOM intact bilaterally Neck: trachea midline Respiratory: no respiratory distress and not tachypneic Auscultation: + diminished lung sounds (at bases, otherwise improved from last week's exam); no rales and no wheezes Cardiovascular: Rate/Rhythm: regular rate and regular rhythm Extremities: + edema (appears resolving) Gastrointestinal (Abdomen): Inspection/Auscultation: normal bowel sounds Percussion/Palpation: abdomen nontender, no guarding and abdomen not rigid Neurologic: moves all extremities and awake Psychiatric: Orientation: alert (increased alertness as compared to last week.) and oriented x 3 Results & Data Vital Signs (Past 12 Hours) Vital Signs Temp Pulse Resp BP Pulse Ox 10/02/18 07:13 36.4 C L 71 16 125/66 94 PG Care Time/CCT Total # of Minutes Spent Total Time Spent with Patient: Total time spent is greater than 50% in coordination of care (as documented) at patient's floor/unit and/or counseling patient: Resident Activity Tracking Resident Involvement: Resident Care Provided Care Provided: Adult Hospital Medicine (1) Pancreatitis Acute pancreatitis complication: unspecified Chronicity: acute Pancreatitis type: other Qualified Code(s): K85.80 - Other acute pancreatitis without necrosis or infection (2) Nausea & vomiting Vomiting Intractability: unspecified Vomiting type: unspecified Qualified Code(s): R11.2 - Nausea with vomiting, unspecified (3) Abdominal pain Abdominal location: unspecified location Qualified Code(s): R10.9 - Unspecified abdominal pain
--- NOTE | 2018-10-02 12:59 | Pharmacy Report ---
Pharmacy Glycemic Short Note 2 - Date of Service October 02, 2018 - Glycemic Short BSG Results (Last 24 hours): 10/01/18 10/01/18 10/02/18 16:33 20:10 07:32 Glucose 85 POC Glucose 215 H 212 H 10/02/18 10/02/18 07:41 11:42 Glucose POC Glucose 95 214 H ASSESSMENT: 10/02: * Patient received total 97 units insulin yesterday; 40 units of Lantus and 57 units of Novolog bolus. * Fasting BSG = 85 today AM. Lantus HS dosing based on BSG scale. * Post prandial BSGs continued to be above 200 yesterday despite tightening correction factor and carb ratio but the bedtime BSG was better compared to the day before. Will continue the current carb ratio of 5 today since this is pretty tight control in an 83 y/o. * Correction factor was further tightened to 15 today in an effort to improve the post-prandial BSGs. Lunch BSG today of 214 is better compared to 255 yesterday. Expect dinner BSG today to be less than 200. 10/01: * Patient received total 98 units of insulin yesterday of which 40 units were from basal Lantus and 58 units from Novolog bolus. * Fasting BSG = 108 this AM. Will continue current Lantus dosing per scale at HS. * Post prandial BSGs have been high (above 200 at lunch and bedtime yesterday and again at lunch today). Patient has been consuming more carbs. * Novolog carb ratio was further tightened today to 5 starting with dinner. Correction factor was also slightly tightened with lunch today. 09/29: * Bsg's continue to be adequate, however there could be some improvement in post prandial BSGs. I will slightly tighten carb coverage to help address this. I will also order a slight dose reduction for evening lantus scale. Fasting BSGs are excellent, but do not want to be overly aggressive. Will loosen and monitor trend. She required 83 units of insulin yesterday. PLAN FOR INPATIENT GLYCEMIC CONTROL: * Basal insulin: continue * Lantus scale SQ @HS based on following scale: - for BSG less than 110 = 25 units - for BSG 110 - 180 = 35 units - for BSG greater than 180 = 40 units * Bolus insulin: tightened * NovoLog per scale ACHS or Q6hrs while NPO * Goal Range: Low 120 mg/dL - High 160 mg/dL * Correction Factor: 15 mg/dL/unit * Nutritional / Prandial insulin per carb ratio of 1 unit per 5 grams CHO consumed PLAN FOR DISCHARGE: Per ADA recommendations her target A1C is likely <8.5/8.0%. A1C of 7.0% is not necessary and may actually predispose her to lows. Further, she will not benefit from tight BSG control. I recommend decreasing her 70/30 insulin doses by 15-20% to reach a target A1C of ~8.
[2018-10-02] MEDS: METOPROLOL SUCC 25MG EXT REL TAB PO SCH (20:03)
[2018-10-02] MEDS: INSULIN GLARGINE SOLOSTAR 100 UNITS/ML 3 ML PEN SC SCH (21:00)
[2018-10-03] MEDS: LEVOTHYROXINE SODIUM 75 MCG TABLET PO SCH (05:48)
[2018-10-03 07:15] LABS: Hematocrit (blood only) 27.1 % (37-47); Hemoglobin 8.9 g/dL (12.0-16.0); Mean Corpuscular Hgb Conc 32.8 g/dL (32-36); Mean Corpuscular Volume 95.1 fL (80-100); Mean Platelet Volume 10.6 fL (7.4-10.4); Platelet Count 141 K/uL (130-400); RDW Standard Deviation 50.6 fL (36.4-46.3); Red Blood Count 2.85 M/uL (4.2-5.4); White Blood Count 6.36 K/uL (4.8-10.8)
[2018-10-03 07:21] VITALS: BP 113/63; TEMP 97.5; O2SAT 94
[2018-10-03 07:48] LABS: Albumin Level 2.2 gm/dl (3.4-5.0); BUN Creatinine Ratio 45.9 (10-20); Calcium 8.7 mg/dl (8.5-10.1); Creatinine Clr Calc Pharmacy 42.2 ml/min; Est GFR (African American) 44.7; Est GFR (Non-African American) 38.5; Potassium 3.5 mmol/L (3.5-5.1)
[2018-10-03 07:51] LABS: Albumin Globulin Ratio 0.6 (0.9-2); Bilirubin,Total 0.4 mg/dl (0.2-1); Total Protein 6.2 gm/dl (6.4-8.2)
[2018-10-03] MEDS: INSULIN ASPART 100 UNITS/ML 3 ML PEN SC SCH ×2 (08:20→13:00)
[2018-10-03] MEDS: LACTOBACILLUS ACIDOPHILUS (FLORANEX) TAB PO SCH ×2 (08:21→13:01)
[2018-10-03] MEDS: GEMFIBROZIL 600 MG TAB PO SCH (08:22)
[2018-10-03] MEDS: OMEGA-3 (PURIFIED FISH OIL) 1 GM CAP PO SCH (08:22)
[2018-10-03] MEDS: FUROSEMIDE 80 MG TAB PO SCH (08:22)
[2018-10-03] MEDS: ASPIRIN 81 MG ECTAB PO SCH (08:22)
[2018-10-03] MEDS: CHOLECALCIFEROL 1,000 UNITS TAB PO SCH (08:23)
[2018-10-03] MEDS: HEPARIN SOD 5,000 UNIT/0.5 ML VIAL SQ SCH (08:25)
[2018-10-03] MEDS: DICLOFENAC SOD 1% GEL 100 GM TUBE EXT SCH ×2 (08:30→13:03)
[2018-10-03] MEDS: MICONAZOLE NITRATE POWDER 43 GM EXT PRN (08:31)
--- NOTE | 2018-10-03 09:03 | Discharge Summary ---
Date of Service October 03, 2018 Admission HPI Per Admitting Provider 83-year-old morbidly obese white female with onset of abdominal pain nausea and distention this morning. Her symptoms progressed and she came to the ED for evaluation. Lipase is greater than 40,[address] scan confirms acute pancreatitis. The gallbladder is distended but does not appear to have acute cholecystitis at this time. C creatinine is 2.1, only slightly higher than baseline. She has chronic kidney disease stage IV. Potassium is 5.6. Serial labs are ordered. She will be kept n.p.o. and given intravenous fluids. Diuretics will be held. Her usual insulin dosage will be decreased by half and sliding scale coverage will be administered. Admission Exam Per Admitting Provider General-alert and oriented x3, no fevers, no chills HEENT-head atraumatic and normocephalic, TMs intact bilaterally, pupils equal and reactive to light, extraocular muscles intact Neck-no lymphadenopathy or thyromegaly, trachea midline Chest-clear to auscultation percussion. No rales wheezing or rhonchi Cardiac-regular rate and rhythm, normal S1 and S2. Frequent premature beats Abdomen-distended with absent bowel sounds. Diffusely tender. No overt rebound or guarding. Extremities-she has chronic venous stasis and chronic lower extremity edema. Diffuse erythema and superficial ulcerations around the left lower extremity below the knee. She appears to have a cellulitis in this area. Neuro-cranial nerves II through XII intact, motor and sensory function within normal limits, strength symmetrical , no focal deficits Psych-normal affect, normal mood Principal Diagnosis Acute pancreatitis Discharge Exam Constitutional + morbidly obese and cooperative Eyes + anicteric sclerae and EOM intact bilaterally Neck trachea midline Respiratory no respiratory distress and not tachypneic Auscultation: + diminished lung sounds (at bases, otherwise improved from last week's exam); no rales and no wheezes Cardiovascular Rate/Rhythm: regular rate and regular rhythm Extremities: + edema (appears resolving) Gastrointestinal (Abdomen) Inspection/Auscultation: normal bowel sounds Percussion/Palpation: abdomen nontender, no guarding and abdomen not rigid Neurologic moves all extremities and awake Psychiatric Orientation: alert (increased alertness as compared to last week.) and oriented x 3 Discharge Data Allergies Allergy/AdvReac Type Severity Reaction Status Date / Time Sulfa (Sulfonamide Allergy Unknown BLISTERS Verified 09/10/18 17:40 Antibiotics) Consultations 09/10/18 18:00 ED Decision to Admit Stat 09/11/18 08:19 Consult Gastroenterology Routine 09/11/18 14:40 Consult General Surgery Routine 09/12/18 11:13 Consult Nephrology Routine 09/20/18 07:44 Consult Infectious Diseases Routine Ordered Studies 09/10/18 16:10 CT abd pelvis wo con Stat 1. Extensive peripancreatic infiltration and fluid consistent with acute pancreatitis. 2. Moderate distention of the gallbladder. No pericholecystic infiltration. No biliary ductal dilatation. 09/11/18 08:20 MR MRCP Routine 1. No biliary ductal dilatation. No choledocholithiasis. 2. Cholelithiasis and moderate gallbladder distention. No convincing evidence for acute cholecystitis. 3. Peripancreatic infiltration and fluid consistent with acute pancreatitis. No peripancreatic fluid collection. 09/11/18 10:53 US gallbladder Urgent 1. Borderline dilatation of the common bile duct measuring 8 mm. No common bile duct calculi identified although distal common bile duct obscured. 2. Edematous pancreas consistent with acute pancreatitis. 3. Cholelithiasis. No sonographic evidence of acute cholecystiti 09/14/18 10:07 US venous doppler LE BI Stat - No DVT 09/14/18 15:08 CT abd pelvis wo con Stat 1. Progressively worsened extensive interstitial and peripancreatic inflammation compatible with worsening acute interstitial edematous pancreatitis. No acute peripancreatic fluid collection. There is however a small volume of abdominopelvic ascites with small bilateral pleural effusions and moderate generalized body wall edema which is new from prior. 2. Gallbladder distention without definite evidence of acute cholecystitis redemonstrated. 3. No bowel obstruction, pneumatosis or pneumoperitoneum. 09/14/18 16:56 US abdomen limited Routine 1. Patent main portal vein with hepatopedal flow. 2. Heterogeneous appearance of the imaged pancreas. Please refer to CT abdomen and pelvis of same day for further discussion of the acute pancreatitis findings. 3. Cholelithiasis with gallbladder distention. The gallbladder wall measures within the upper limits of normal. Correlate clinically to exclude acute cholecystitis. 09/19/18 10:54 CT chest wo con Urgent 1. Cardiomegaly with suggestion of mild pulmonary edema. 2. Small bilateral pleural effusions with bibasilar groundglass and consolidative opacities suggestive of atelectasis or pneumonia. Correlate clinically. 3. Decreased AP dimension of the trachea and mainstem bronchi. Correlate clinically to exclude tracheobronchomalacia. 4. Nonspecific mildly prominent mediastinal and hilar lymph nodes, possibly reactive. 5. Findings of acute pancreatitis redemonstrated. 09/20/18 11:03 CT abd pelvis oral con only Stat 1. Overall similar appearance of the severe pancreatitis. Evaluation for necrosis is significantly limited in the absence of intravenous contrast. No gross evidence of a pancreatic parenchymal fluid collection to suggest necrosis at this time. Acute peripancreatic fluid collection along the tail tracking to the spleen stable to slightly increased in size from prior. Extension of inflammatory change in the retroperitoneum also stable from prior. 2. Gallbladder distention likely a secondary result of inflammatory change and lack of bile clearance. If there is clinical concern for acute or chronic cholecystitis, HIDA scan may be beneficial. 3. Slight increased volume of the small to moderate ascites. 4. Worsened body wall edema. 5. Persistent small bilateral pleural effusions and passive atelectasis in the lower lobes. 09/26/18 11:59 US venous doppler UE LT Routine - No evidence of DVT Hospital Course (1) Pancreatitis: 83F was admitted on 10 September 2018 for nausea, abdominal pain, and distention. Found to have acute pancreatitis. Pt was started on Zosyn which was narrowed to a cephalosporin on 09/13/18 and then added Levaquin on 09/16/18 which was broadened to Vanc + Imipenem/ Cilastin on 09/19/18 WBC elevation, fevers. Blood cultures repeated on 09/10/18 and ID consulted on that day as well for persistent fevers. Then, completed course of Ertapenem providing coverage for GI microbial activity from pancreatitis. She was cleared for discharge earlier this week, but had difficulties obtaining authorization so she can leave hospital setting for more appropriate care setting, as she had improved her abil ity to tolerate therapy activities here. On 10/03/18, she was approved for discharged to rehab. PMHx: HTN, HLD (TAG ~200), DM2, neuropathy, hypothyroidism: Prior partial thyroidectomy, breast cancer s/p mastectomy in 2000. Morbid obesity (BMI 40). 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 Acute pancreatitis likely 2/2 cholelithiasis - Initial worsening of abdominal pain symptoms after admission (now no complaints), but repeat CT on 09/14 showed persistent pancreatitis without cyst or necrosis. Empiric abx (initially Zosyn) started and narrowed to - Cephalosporin on 09/13/18 and then re-broadened on 09/19/18. Repeat CT Scan on 09/20/18 showed no acute changes however GB consistently inflamed. - Completed course of Ertapenem. No clinical signs of infection, will disco ntinue. - Surgery and GI following, plan cholecystectomy once acute inflammation from pancreatitis has resolved and patient is more medically sound. - Tolerating meals without pain or complications. - Repeat blood cultures negative. - Slow and indolent recovery, but improving, Day #23 of admission by time of discharge. - Ertapenem for cholecystitis discontinued. Diffuse Edema Pt with significant 17kg weight gain during admission likely all 3rd spaced given oliguria. Finally on 09/25, there were signs of improvement with about 2.5kg weight loss with one time doses of Lasix. On 09/25 24-hr cum I&O, her urine output has increased significantly and had a 24-hr negative balance of 2645mL. On 09/26, continued to have significant output with balance of -2505mL and further decrease in weight to 118.3kg. 09/26 received Lasix 80 IV x 1 dose then received an additional Lasix 40mg IV later in the day. Had further improvement with negative balance from review on 09/29, with negative about 2L and weight decreased to 116.5kg - Encourage ambulation and incentive spirometry. With numerous conversations provided. Will continue to provide coaching to patient to encourage ambulation/activity. - Compression stockings were ordered but appears patient unable to tolerate. - On Boost supplements. Need to increase protein intake to help increase osmotic pull into vasculature system. - - Boost supplements have been added TID. Acute on chronic CKD stage IV Baseline Cr ~1.7-2.0. Creatinine 09/22 3.02; 09/23 2.77; 09/24 2.88; Improved to 2.25 on 09/25 AM and then repeat 3pm showed 2.25. 09/26 improved further to 1.99. Further improved to 1.68 (baseline level). 09/29 value is 1.36. 10/02 is 1.22. - Nephrology previously gave Albumin. will follow up on current recs. - No current indication for dialysis per nephro. Left Arm Swelling Localized swelling with mild tenderness to left anterior just distal to antecubital fossa with no overlying erythema, increased warmth, or signs of infection; appears consistent with hematoma from IV access attempts vs. infiltration of IV site vs. thrombus. - US LUE shows no DVT Atrial fibrillation, new - Converted with one dose of IV Lopressor - Continue PO metoprolol 25 mg daily - CHADVASC 9.8%. On dvt proph anticoagulation, no indication for bridge, will address adding Vitk antagonist vs NOAC at discharge. - In NSR currently. Bilateral knee pain - chronic - Severe and prevents patients from wanting to be moved in bed, let alone engaging in PT/OT - Voltaren gel QID - Advised nursing to use IV morphine 20-30 min prior to moving and therapy - Considerations that decreased alertness could be contributed to Morphine. She appears slightly more alert today and there wasn't note of receiving Morphine since last night. But difficult as want to treat pain in order for her to increase activity and also with goal to keep patient comfortable. Possible pneumonia on CT Scan, 09/19/18 - Previously reviewed CT results with Dr. Cotter, likely atelectasis and not pneumonia. No concerns for ARDS. Pt is no respiratory distress. - Abx as above. Diabetes, neuropathy - At home, on insulin and gabapentin 200 mg p.o. nightly - Hold gabapentin due to renal issues - Previous to 09/24, Insulin tightened to Lantus 35BID and tighter ISS scale given patient now eating better - She had glucose 09/24 morning of 57 for which nursing gave IV Dextrose which improved to value greater than 100. - On 09/24, Only required 11 of Novolog on 09/23 with Lantus 35 units BID. Discussed with pharmacy and placed consult for team approach to manage. Agree with discussion of holding Lantus on 09/24 morning and adjusting basal dosing. Acute on chronic anemia - Stable - Daily H/H HTN, hypertriglyceridemia - Continue ASA and gemfibrozil - Hold olmesartan at this time due to previous LISA, continue to hold at this time while diuresing and normotensive Hypothyroidism - Prior partial thyroidectomy. - Continue levothyroxine Breast cancer s/p mastectomy in 2000 Diet: Low-fat diet. DVT proph: Heparin twice daily. PT/OT: Ordered. Dispo: Downgraded to Med/Surg, ready for discharge to SNF Code status: DNR. (2) Cellulitis of left lower extremity: Discontinued Vancomycin IV. No signs of current active infection today, no increase in warmth, erythema now most likely post-inflammatory hyper pigmentation. (3) Cholelithiasis: (4) Abdominal pain: (5) Nausea & vomiting: (6) Hypothyroidism (acquired): (7) Diabetes mellitus: Currently consulting pharmacy for hyperglycemic management and following recs. (8) Chronic anemia: Total Time Total Time Spent Total Time Spent (In Minutes): <30 Total Time Includes: Examination of the Patient, Discharge Planning, Medication Reconciliation and Communication With Other Providers Discharge Plan Discharge Items Patient Disposition: Transfer [facility] Reason For Visit: ACUTE PANCREATITIS Discharge Diagnosis: Acute Pancreatitis Discharge Goals: Improve disease control and Therapeutic intervention Activity: Resume your previous activity Non-emergency contact: Primary Care Provider Call non-emergency contact if: you have any medication questions and your symptoms worsen Follow-up/Referrals: Pro,Narinder Macedo MD [Primary Care Provider] - Diet: Carb Consistent or DM2 Diet Texture: Dental soft (bite-sized) Addtl Provider Instructions: You were admitted for pancreatitis and also were treated for cellulitis. You will need to have your gallbladder removed with surgery once medically stable from current illness. You are being transferred to rehabilitation for continued strength conditioning and continued care. You were also treated for leg cellulitis. Your course of care was complicated by weight gain from the inflammation from your pancreatitis and the IV fluids you received to treat your condition. Furthermore, your illness caused fatigue which then led to deconditioning. You will need to continue working with Physical and Occupational therapy to increase your strength and help mobilize fluid for further weight loss back to your baseline. Prescriptions: New metoprolol succinate 25 mg Tablet Extended Release 24 Hr 25 mg PO QPM Qty: 30 RF: 0 diclofenac sodium [Voltaren] 1 % Gel 1 applic EXT QID Qty: 5 RF: 0 furosemide 80 mg tablet 80 mg PO QAM Qty: 30 RF: 0 Continued levothyroxine 75 mcg tablet 75 mcg PO QAM RF: 0 gemfibrozil 600 mg tablet 600 mg PO QAM RF: 0 gabapentin 100 mg capsule 200 mg PO HS RF: 0 olmesartan 40 mg tablet 40 mg PO QAM RF: 0 Multi-Vitamin HP/Minerals Capsule 1 cap PO QAM RF: 0 cholecalciferol (vitamin D3) [Vitamin D3] 2,000 unit Capsule 2,000 unit PO 3XWK RF: 0 omega 8-puk-cln-fish oil [Fish Oil] 1,000 mg (120 mg-180 mg) Capsule 1,000 mg PO QAM RF: 0 Novolin 70/30 U-100 Insulin 100 unit/mL (70-30) Suspension 60 unit SUBCUT BID RF: 0 aspirin [Aspirin Low Dose] 81 mg Tablet,Delayed Release (Dr/Ec) 81 mg PO DAILY RF: 0 Discontinued torsemide 20 mg tablet 20 mg PO QAM RF: 0 torsemide 10 mg tablet 10 mg PO QAM RF: 0 acetaminophen [Mapap (acetaminophen)] 325 mg Tablet 650 mg PO Q4H PRN (Reason: Fever/pain) Qty: 1 RF: 0 Stand-Alone Forms: [facility] Discharge Orders: Discharge Order (Routine); Ordered 10/03/18 Ordered By: Suhail Soliz Skilled Items Patient informed of condition?: Yes DNR: Yes Discharge Level of Care: Skilled Communicable Disease: No Discharge Prognosis: Improving Admission Data Admit Date/Time: 09/10/18 18:36 Attending Provider: Cam Cerna Admit Provider: Rene Pandey Primary Care Provider: Narinder Caldwell Other Providers: Nicole Jurado ; Senthil Colunga ; Rene Pandey ; Maldonado Rose ; Rene Nelson ; Carolin Walsh ; Pato Vazquez ; Chris Avery ; Suhail Shell Jr ; Dmitry Rubin ; Rosie Araujo ; Corby Baumann ; Ekta Pressley ; Bebeto Weeks ; Krzysztof Bhatt ; Susan Solis Service: Medical Supervising Physician Co-Signing Physician Notes I personally examined the patient and verified all brooks points of history and exam, discussed case, and agree with decision making with Dr Soliz. feeling ok. ready to go to SNF, approved! vitals noted nad breathing unlabored no pallor or icterus. no focal neuro deficits. conversational and upbeat. pancreatitis - gallstone related. now improved. choley as outpt once recovered enough severe acute protein malnutrition - ongoing PO intake/nutritional support deconditioning/weakness - for ongoing PT/OT at SNF. encouraged her to do as muc h activity as possible receiving physician can then determine need for ongoing pharmacologic DVT proph based on her activity. stable for SNF
--- NOTE | 2018-10-03 09:16 | Nephrology Progress Note ---
Date of Service October 03, 2018 Assessment & Plan (1) Acute kidney injury: ATN related to SIRS and decreased EAV associated w/ pancreatitis has resolved. Profound hypoalbuminemia with 3rd spacing of fluid. Creatinine improved to baseline. -- Continue Furosemide 80 mg po daily. Patient is now mobilizing ascitic fluid and peripheral edema -- Patient anticipates returning home after she has met goals with PT. I have asked by office staff to arrange a Nephrology follow up in 2 weeks. Orders have been placed in [employer] to have CBC and CMP completed 2 days prior to office visit (2) Chronic kidney disease, stage IV (severe): -- Baseline creatinine ~ 1.7 - 2.0 (3) Pancreatitis: (4) Cholelithiasis: -- Surgery plan cholecystectomy once acute inflammation from pancreatitis has resolved and patient has recovered from acute illness (5) Hypertension: -- Blood pressure remains relatively low. Continue to hold Olmesartan Subjective Mrs. Mike was seen & examined in her hospital room this morning. Her abdominal and back pain have resolved. She is tolerating her diet. She reports brisk urine output and notes that her ascites and peripheral edema are improving. Mrs. Mike remains weak. She did participate with PT yesterday by sitting on the side of the bed and performing strengthening exercises. Review of Systems Constitutional: + weakness; no fever Respiratory: no cough and no dyspnea Cardiovascular: + edema; no chest pain Gastrointestinal: no abdominal pain, no vomiting and no diarrhea/loose stools Physical Exam Constitutional: + obese Eyes: PERRL, conjunctivae normal, anicteric sclerae Neck: trachea midline, no thyromegaly Respiratory: normal respiratory effort, lungs clear to auscultation no respiratory distress Cardiovascular: RRR, no murmur, no edema Rate/Rhythm: regular rate and regular rhythm Extremities: + edema (1+ edema of the arms and legs) Gastrointestinal (Abdomen): Inspection/Auscultation: + abdomen distended and + hypoactive bowel sounds Percussion/Palpation: abdomen nontender and no guarding Skin: no erythema Results & Data Vital Signs (Past 12 Hours) Vital Signs Temp Pulse Pulse Resp BP Pulse Ox 10/03/18 07:20 36.4 C L 70 16 113/63 94 10/02/18 23:55 36.6 C 66 18 124/69 95 Laboratory Results Laboratory Tests 10/03/18 10/03/18 06:53 06:53 WBC 6.36 Hgb 8.9 L Hct 27.1 L Plt Count 141 Sodium 144 Potassium 3.5 Chloride 107 Carbon Dioxide 32 BUN 59 H Creatinine 1.29 H Glucose 78 (1) Pancreatitis Acute pancreatitis complication: unspecified Chronicity: acute Pancreatitis type: other Qualified Code(s): K85.80 - Other acute pancreatitis without necrosis or infection
[2018-10-03 14:13] VITALS: PULSE 66
== END 2018-10-03 14:45 | DRG 438 ==
LOC: ED 16:04 → SUATTDRO 18:36 → 2S 18:36 → 4E 09-29 12:47

== ENCOUNTER 2018-10-20 12:16 | Observation (INO) ==
[2018-10-20] MEDS ORDERED: SODIUM CHLORIDE 0.9% 1000ML 500 ML IV ONE (12:49)
[2018-10-20 12:51] LABS: Basophils # (auto) 0.03 K/uL (0-0.2); Basophils % (auto) 0.4 %; Eosinophils # (auto) 0.37 K/uL (0-0.5); Eosinophils % (auto) 4.8 %; Hematocrit (blood only) 31.5 % (37-47); Hemoglobin 10.1 g/dL (12.0-16.0); Immature Granulocytes # (auto) 0.03 K/uL (0.00-0.02); Immature Granulocytes % (auto) 0.4 %; Lymphocytes % (auto) 38.7 %; Mean Corpuscular Hgb Conc 32.1 g/dL (32-36); Mean Corpuscular Volume 97.8 fL (80-100); Mean Platelet Volume 10.5 fL (7.4-10.4); Monocytes # (auto) 0.48 K/uL (0.11-0.59); Monocytes % (auto) 6.2 %; Neutrophils # (auto) 3.84 K/uL (1.4-6.5); Neutrophils % (auto) 49.5 %; Platelet Count 205 K/uL (130-400); RDW Coefficient of Variation 15.1 % (11.5-14.5); RDW Standard Deviation 54.4 fL (36.4-46.3); Red Blood Count 3.22 M/uL (4.2-5.4); White Blood Count 7.75 K/uL (4.8-10.8)
--- NOTE | 2018-10-20 13:03 | XRay Report ---
XR chest 1V portable CLINICAL HISTORY: syncope mental status change COMPARISON STUDY: 09/16/2018 FINDINGS: Improved aeration left lung base. Improved visibility left hemidiaphragm. Mild stable cardiomegaly. Lungs otherwise appear clear. IMPRESSION: Mild stable cardiomegaly. No acute process. Left lung base is now clear. The above report was generated using voice recognition software. It may contain grammatical, syntax or spelling errors. Electronically signed by: Gilles Lloyd M.D. 10/20/2018 1:02 PM
[2018-10-20 13:08] LABS: Alanine Aminotransferase 15 U/L (12-78); Albumin Level 3.1 gm/dl (3.4-5.0); Aspartate Aminotransferase 21 U/L (15-37); BUN Creatinine Ratio 22.1 (10-20); Blood Urea Nitrogen 76 mg/dl (7-18); Calcium 9.7 mg/dl (8.5-10.1); Carbon Dioxide 29 mmol/L (21-32); Chloride 99 mmol/L (98-107); Creatinine Clr Calc Pharmacy 14.8 ml/min; Est GFR (African American) 13.8; Est GFR (Non-African American) 11.9; Glucose 129 mg/dl (70-99); Sodium 137 mmol/L (136-145)
[2018-10-20 13:10] LABS: INR 1.1 (0.9-1.1); Partial Thromboplastin Ratio 0.8; Partial Thromboplastin Time 21.1 Seconds (21.0-31.0); Prothrombin Time 11.1 Seconds (9.0-12.0)
[2018-10-20 13:19] LABS: Albumin Globulin Ratio 0.7 (0.9-2); Alkaline Phosphatase 101 U/L (45-117); Bilirubin,Total 0.3 mg/dl (0.2-1); Globulin 4.6 gm/dl (2.5-4.0); Total Protein 7.7 gm/dl (6.4-8.2); Troponin I < 0.015 ng/ml (0-0.045)
[2018-10-20] MEDS: SODIUM CHLORIDE 0.9% 1000ML 1,000 ML IV SCH ×2 (13:20→13:23)
[2018-10-20 14:59] LABS: Appearance Urine Clear (Clear); Bacteria Urine Automated Negative (Negative); Bilirubin Urine Negative (Negative); Blood Urine Negative (Negative); Color Urine Yellow; Epithelial Cell Urine Auto 20-30 /lpf (0-5); Glucose Urine UA Negative (Negative); Ketones Urine Negative (Negative); Leukocyte Esterase Urine 1+ (Negative); Nitrite Urine Negative (Negative); Protein Urine Negative (Negative); Specific Gravity Urine 1.011 (1.000-1.030); Urobilinogen Urine Negative (Negative)
[2018-10-20 15:30] LABS: Renal Epithelial Cells Urine 0-5 /lpf (0-5)
--- NOTE | 2018-10-20 15:51 | History & Physical Report ---
Date of Service October 20, 2018 Assessment & Plan (1) LISA (acute kidney injury): BUN=76, Cr=3.41. Patient is making urine. Appears slightly dry on clinical exam, CBC most likely with hemoconcentration. IVF administerd in ER x 2 L -Hold Olmesartan, Torsemide and Lasix for now -Renal dosing for Gabapentin -Monitor BUN, Cr, electrolytes and UOP -BMP q 12 hours -NSS at 80mL/hr x 1 liter -Encourage PO intake Present on Admission?: Yes (2) Dehydration: Plan as above Present on Admission?: Yes (3) Syncope: Possibly secondary to dehydration, orthostatics -Check Orthostatic VS x 1 -Telemetry monitoring -Patient with echocardiogram on 13 September, no valvular disease or WMA. EF of 60- 65% -Fall precautions -PT/OT evaluation to continue therapy Present on Admission?: Yes (4) Afib: Patient with history of AF. Presently in NSR -Continue Metoprolol -Continue ASA, no anticoagulation Present on Admission?: Yes (5) Chronic anemia: Hg=10.1, Hct=31.5 which is increased from prior values. No history of recent transfusion. Most likely hemoconcentration in setting of dehydration -Continue to monitor Present on Admission?: Yes (6) Diabetes mellitus: Chronic. Blood sugar presently 129 -Hold Novolin -Lantus 10u BID -Novolog SS -CC diet as tolerated -Decrease Gabapentin for renal dosing -Continue to monitor Present on Admission?: Yes (7) Hypertension: Blood pressure presently 121/61 -Holding Olmesartan, Torsemide and Lasix in setting of LISA -Continue to monitor Present on Admission?: Yes (8) Hypothyroidism (acquired): Chronic -Continue Synthroid Present on Admission?: Yes (9) Hypertriglyceridemia: Chronic -Holding Gemfibrozil and Fish oil for now F/E/N - NSS at 80mL/hr x 1 liter, monitor electrolytes and replete as needed, CC diet as tolerated, bowel regimen PRN and hydration as above Ppx - SCDs Code - DNR Dispo - Obs to Med with Tele History of Present Illness Chief Complaint: LISA, syncope Primary Care Provider: Narinder Caldwell MD Dana Mike is an 83yo C female presenting after a syncopal event. She had a recent prolonged hospital stay for pancreatitis from 09/11 - 10/03 after which she was discharged to [facility] to complete rehab. She states that she felt weak and tired during rehab but was able to complete her activities. She had a home evaluation today in preparation for discharge from [facility]. Per , patient was in the car after the home evaluation and became unresponsive and slumped over in her chair. She regained consciousness after a few moments. She denies CP/Palpitations/dizziness/numbness/weakness/incontinence. denies seizure-like activity, slurred speech or confusion. Patient presently feels well. ER evaluation with LISA on CKD, BUN=76 and Cr=3.41 ER Course: NSS Allergies Allergy/AdvReac Type Severity Reaction Status Date / Time Sulfa (Sulfonamide Allergy Unknown BLISTERS Verified 10/20/18 14:16 Antibiotics) Home Medications Home Medications Medication Instructions Recorded Confirmed Type Multi-Vitamin HP/Minerals 1 cap PO QAM 02/23/18 10/20/18 History cholecalciferol (vitamin D3) 2,000 unit PO 3XWK 02/23/18 10/20/18 History [Vitamin D3] gabapentin 200 mg PO HS 02/23/18 10/20/18 History gemfibrozil 600 mg PO QAM 02/23/18 10/20/18 History levothyroxine 75 mcg PO QAM 02/23/18 10/20/18 History olmesartan 40 mg PO QAM 02/23/18 10/20/18 History omega 4-hip-dcs-fish oil [Fish Oil] 1,000 mg PO QAM 02/23/18 10/20/18 History Novolin 70/30 U-100 Insulin 40 unit SUBCUT BID 09/10/18 10/20/18 History aspirin [Aspirin Low Dose] 81 mg PO DAILY 09/10/18 10/20/18 History diclofenac sodium [Voltaren] 1 applic EXT QID #5 g 09/30/18 10/20/18 Rx furosemide 80 mg PO QAM #30 tab 09/30/18 10/20/18 Rx metoprolol succinate 25 mg PO QPM #30 tab 09/30/18 10/20/18 Rx torsemide 10 mg PO DAILY 10/20/18 10/20/18 History torsemide 20 mg PO DAILY 10/20/18 10/20/18 History Past Med/Surg History Medical History Cellulitis of left lower extremity (Acute) Pancreatitis (Acute) Acute kidney injury Neuropathy Chronic kidney disease, stage IV (severe) Acute UTI (Acute) Sepsis (Acute) Chronic venous insufficiency Diabetes mellitus (Chronic) Hypertension Hypothyroidism (acquired) Hypertriglyceridemia Cellulitis of right upper extremity Cellulitis of left lower extremity Surgical History History of mastectomy History of thyroidectomy Family History Other Diabetes Social History Preferred Language: [place] Communication Ability: Effective Calender Supervisor Required: No Beliefs That Will Affect Care: None marital status: Current Living Situation: Spouse Other Information That Helps Us Care for You: No Feels Safe at Home: Yes Safety Concerns: Feels Safe At This Time Smoking Status: Unknown if ever smoked Hx Alcohol Use: No Hx Substance Use: No Review of Systems Review of Systems: +lightheaded +left leg weakness, unchanged +constipation Physical Exam Physical Exam: General: patient resting comfortably, NAD, non-toxic in appearance, AA&O x 4 Skin: warm, dry, intact, no rashes or lesions HEENT: NC/AT, PERRL, EOMI, anicteric sclera, conjunctiva without injection, external ear normal to inspection and nontender, nares patent, moist mucus membranes, dentition intact, no oropharyngeal lesions, neck supple, trachea midline, no LAD, no thyromegaly, no JVD Heart: +S1/S2, regular, no m/r/g Lungs: equal air entry bilaterally, no rales/rhonchi/wheezes Abd: +BS, soft, NT/ND, no masses/organomegaly/ascites Ext: warm, 2+ pulses in UE/LE bilaterally, no clubbing/cyanosis or edema Neuro: nonfocal, patient AA&O x 4, speech intact, no facial droop, moving all extremities on command with equal strength 5/5 Results & Data Vital Signs (Past 12 Hours) Vital Signs Temp Pulse Resp BP Pulse Ox 10/20/18 15:31 80 16 10/20/18 15:30 81 18 146/62 H 92 10/20/18 15:20 80 16 96 10/20/18 15:10 79 19 94 10/20/18 15:00 80 19 132/58 L 94 10/20/18 14:50 79 26 H 96 10/20/18 14:40 86 19 97 10/20/18 14:20 76 16 10/20/18 14:10 76 19 10/20/18 14:00 73 17 163/52 H 10/20/18 13:50 71 23 10/20/18 13:40 75 14 10/20/18 13:31 74 17 10/20/18 13:30 75 23 152/61 H 10/20/18 13:20 73 23 10/20/18 13:10 72 19 10/20/18 13:07 72 21 10/20/18 13:01 72 18 144/51 H 10/20/18 12:24 36.7 C 79 13 145/63 H 95 Laboratory Results Lab Results 10/20/18 10/20/18 10/20/18 Range/Units 12:34 12:43 12:43 WBC 7.75 (4.8-10.8) K/uL RBC 3.22 L (4.2-5.4) M/uL Hgb 10.1 L (12.0-16.0) g/dL Hct 31.5 L (37-47) % MCV 97.8 (80-100) fL MCH 31.4 (25-34) pg MCHC 32.1 (32-36) g/dL RDW Std Deviation 54.4 H (36.4-46.3) fL RDW Coeff of Brian 15.1 H (11.5-14.5) % Plt Count 205 (130-400) K/uL MPV 10.5 H (7.4-10.4) fL Immature Gran % (Auto) 0.4 % Neut % (Auto) 49.5 % Lymph % (Auto) 38.7 % [place] % (Auto) 6.2 % Eos % (Auto) 4.8 % Baso % (Auto) 0.4 % Immature Gran # (Auto) 0.03 H (0.00-0.02) K/uL Neut # (Auto) 3.84 (1.4-6.5) K/uL Lymph # (Auto) 3.00 (1.2-3.4) K/uL [place] # (Auto) 0.48 (0.11-0.59) K/uL Eos # (Auto) 0.37 (0-0.5) K/uL Baso # (Auto) 0.03 (0-0.2) K/uL PT 11.1 (9.0-12.0) Seconds INR 1.1 (0.9-1.1) APTT 21.1 (21.0-31.0) Seconds PTT Ratio 0.8 Sodium (136-145) mmol/L Potassium (3.5-5.1) mmol/L Chloride (98-107) mmol/L Carbon Dioxide (21-32) mmol/L Anion Gap (3-11) BUN (7-18) mg/dl Creatinine (0.6-1.2) mg/dl Est Cr Clr Drug Dosing ml/min Est GFR ( Amer) Est GFR (Non-Af Amer) BUN/Creatinine Ratio (10-20) Glucose (70-99) mg/dl POC Glucose (70-99) Calcium (8.5-10.1) mg/dl Phosphorus 4.5 (2.5-4.9) mg/dl Magnesium (1.8-2.4) mg/dl Total Bilirubin (0.2-1) mg/dl AST (15-37) U/L ALT (12-78) U/L Alkaline Phosphatase (45-117) U/L Troponin I (0-0.045) ng/ml Total Protein (6.4-8.2) gm/dl Albumin (3.4-5.0) gm/dl Globulin (2.5-4.0) gm/dl Albumin/Globulin Ratio (0.9-2) Lipase (73-393) U/L TSH (0.300-4.500) uIu/ml Urine Color Urine Appearance (Clear) Urine pH (4.5-7.5) Ur Specific [place] (1.000-1.030) Urine Protein (Negative) Urine Glucose (UA) (Negative) Urine Ketones (Negative) Urine Blood (Negative) Urine Nitrite (Negative) Urine Bilirubin (Negative) Urine Urobilinogen (Negative) Ur Leukocyte Esterase (Negative) Urine WBC (Auto) (0-5) /hpf Urine RBC (Auto) (0-4) /hpf U Hyaline Cast (Auto) (0-5) /lpf U Epithel Cells (Auto) (0-5) /lpf Urine Bacteria (Auto) (Negative) Ur Renal Epithelial Cell (0-5) /lpf Urine Yeast 10/20/18 10/20/18 10/20/18 Range/Units 12:43 14:30 19:02 WBC (4.8-10.8) K/uL RBC (4.2-5.4) M/uL Hgb (12.0-16.0) g/dL Hct (37-47) % MCV (80-100) fL MCH (25-34) pg MCHC (32-36) g/dL RDW Std Deviation (36.4-46.3) fL RDW Coeff of Brian (11.5-14.5) % Plt Count (130-400) K/uL MPV (7.4-10.4) fL Immature Gran % (Auto) % Neut % (Auto) % Lymph % (Auto) % [place] % (Auto) % Eos % (Auto) % Baso % (Auto) % Immature Gran # (Auto) (0.00-0.02) K/uL Neut # (Auto) (1.4-6.5) K/uL Lymph # (Auto) (1.2-3.4) K/uL [place] # (Auto) (0.11-0.59) K/uL Eos # (Auto) (0-0.5) K/uL Baso # (Auto) (0-0.2) K/uL PT (9.0-12.0) Seconds INR (0.9-1.1) APTT (21.0-31.0) Seconds PTT Ratio Sodium 137 (136-145) mmol/L Potassium 5.0 (3.5-5.1) mmol/L Chloride 99 (98-107) mmol/L Carbon Dioxide 29 (21-32) mmol/L Anion Gap 9.0 (3-11) BUN 76 H (7-18) mg/dl Creatinine 3.41 H (0.6-1.2) mg/dl Est Cr Clr Drug Dosing 14.8 ml/min Est GFR ( Amer) 13.8 Est GFR (Non-Af Amer) 11.9 BUN/Creatinine Ratio 22.1 H (10-20) Glucose 129 H (70-99) mg/dl POC Glucose 88 (70-99) Calcium 9.7 (8.5-10.1) mg/dl Phosphorus (2.5-4.9) mg/dl Magnesium 3.0 H (1.8-2.4) mg/dl Total Bilirubin 0.3 (0.2-1) mg/dl AST 21 (15-37) U/L ALT 15 (12-78) U/L Alkaline Phosphatase 101 (45-117) U/L Troponin I < 0.015 (0-0.045) ng/ml Total Protein 7.7 (6.4-8.2) gm/dl Albumin 3.1 L (3.4-5.0) gm/dl Globulin 4.6 H (2.5-4.0) gm/dl Albumin/Globulin Ratio 0.7 L (0.9-2) Lipase 165 (73-393) U/L TSH 1.480 (0.300-4.500) uIu/ml Urine Color Yellow Urine Appearance Clear (Clear) Urine pH 7.0 (4.5-7.5) Ur Specific [place] 1.011 (1.000-1.030) Urine Protein Negative (Negative) Urine Glucose (UA) Negative (Negative) Urine Ketones Negative (Negative) Urine Blood Negative (Negative) Urine Nitrite Negative (Negative) Urine Bilirubin Negative (Negative) Urine Urobilinogen Negative (Negative) Ur Leukocyte Esterase 1+ H (Negative) Urine WBC (Auto) 5-10 H (0-5) /hpf Urine RBC (Auto) 5-10 H (0-4) /hpf U Hyaline Cast (Auto) 1-5 (0-5) /lpf U Epithel Cells (Auto) 20-30 H (0-5) /lpf Urine Bacteria (Auto) Negative (Negative) Ur Renal Epithelial Cell 0-5 (0-5) /lpf Urine Yeast Not Reportable Diagnostic Findings XR chest 1V portable CLINICAL HISTORY: syncope mental status change COMPARISON STUDY: 09/16/2018 FINDINGS: Improved aeration left lung base. Improved visibility left hemidiaphragm. Mild stable cardiomegaly. Lungs otherwise appear clear. IMPRESSION: Mild stable cardiomegaly. No acute process. Left lung base is now clear. The above report was generated using voice recognition software. It may contain grammatical, syntax or spelling errors. Electronically signed by: Gilles Lloyd M.D. 10/20/2018 1:02 PM Dictated: 10/20/18 1301 Transcribed: 10/20/18 1301 ECG Additional Comments: The study shows NSR at 76bpm, low voltage, no acute ischemic changes Code Status & VTE Plan Code Status DNR VTE Prophylaxis Plan VTE Prophylaxis will be ordered: Yes PG Care Time/CCT Total # of Minutes Spent Total Time Spent with Patient: Total time spent is greater than 50% in coordination of care (as documented) at patient's floor/unit and/or counseling patient: (1) Syncope Syncope type: unspecified Qualified Code(s): R55 - Syncope and collapse (2) Afib Atrial fibrillation type: unspecified Qualified Code(s): I48.91 - Unspecified atrial fibrillation (3) Diabetes mellitus Diabetes mellitus type: type 2 Diabetes mellitus long term care administrator insulin use: with residential use Diabetes mellitus complication status: without complication Qualified Code(s): E11.9 - Type 2 diabetes mellitus without complications; Z79.4 - intermodal customer service (current) use of insulin (4) Hypertension Hypertension type: essential hypertension Qualified Code(s): I10 - Essential (primary) hypertension
--- NOTE | 2018-10-20 18:08 | Emergency Department Note ---
Entered by Vanessa Hyatt acting as a scribe for History of Present Illness General Chief complaint: Syncope Source: patient History of Present Illness Provider complaint: syncopal episode Onset (ago): hour(s) (this morning) Location: left and right Maximum Pain Intensity: 0 Quality: + other (syncope) Associated symptoms: + other (dizziness); no chest pain, no fever/chills, no nausea/vomiting and no shortness of breath The patient is an 83 year old female who presents to the Emergency Department with complaints of a syncopal episode this morning. She states that she had a home health evaluation and was walking around when she got light-headed and passed out. The patient reports that she gets dizzy when she stands up but otherwise feels fine. She denies having chest pain, shortness of breath, fevers, abdominal pain, nausea, and vomiting. The patient denies a history of syncopal episodes. She states that she was admitted several times in September for pancreatitis and gallbladder problems. The patient states that she was on antibiotics but states that she does not think that she is on any currently. She states that she has not been started on new medications that she knows of. She states that she has been urinating normally. The patient denies being on blood thinners. She denies having black or bloody stools. She states that she has been eating and drinking well. Home Medications Home Medications Medication Instructions Recorded Confirmed Type Multi-Vitamin HP/Minerals 1 cap PO QAM 02/23/18 10/20/18 History cholecalciferol (vitamin D3) 2,000 unit PO 3XWK 02/23/18 10/20/18 History [Vitamin D3] gabapentin 200 mg PO HS 02/23/18 10/20/18 History gemfibrozil 600 mg PO QAM 02/23/18 10/20/18 History levothyroxine 75 mcg PO QAM 02/23/18 10/20/18 History olmesartan 40 mg PO QAM 02/23/18 10/20/18 History omega 4-bka-msi-fish oil [Fish Oil] 1,000 mg PO QAM 02/23/18 10/20/18 History Novolin 70/30 U-100 Insulin 40 unit SUBCUT BID 09/10/18 10/20/18 History aspirin [Aspirin Low Dose] 81 mg PO DAILY 09/10/18 10/20/18 History diclofenac sodium [Voltaren] 1 applic EXT QID #5 g 09/30/18 10/20/18 Rx furosemide 80 mg PO QAM #30 tab 09/30/18 10/20/18 Rx metoprolol succinate 25 mg PO QPM #30 tab 09/30/18 10/20/18 Rx torsemide 10 mg PO DAILY 10/20/18 10/20/18 History torsemide 20 mg PO DAILY 10/20/18 10/20/18 History Allergies Allergy/AdvReac Type Severity Reaction Status Date / Time Sulfa (Sulfonamide Allergy Unknown BLISTERS Verified 10/20/18 14:16 Antibiotics) Past Med/Surg History Medical History Cellulitis of left lower extremity (Acute) Pancreatitis (Acute) Acute kidney injury Neuropathy Chronic kidney disease, stage IV (severe) Acute UTI (Acute) Sepsis (Acute) Chronic venous insufficiency Diabetes mellitus (Chronic) Hypertension Hypothyroidism (acquired) Hypertriglyceridemia Cellulitis of right upper extremity Cellulitis of left lower extremity Social History Preferred Language: Citizen Of [place] Communication Ability: Effective Beliefs That Will Affect Care: None marital status: Current Living Situation: Spouse Feels Safe at Home: Yes Smoking Status: Never smoker Second Hand Exposure: No Hx Alcohol Use: No Hx Substance Use: No Review of Systems See HPI for pertinent positives & negatives. and A total of 10 systems reviewed and were otherwise negative Physical Exam Vital Signs Vital Signs - 24 hr 10/20/18 12:24 10/20/18 12:55 10/20/18 13:01 Temperature 36.7 C Temperature Source Oral Sepsis Recent Fever Within 48 Hours No Sepsis New/Unexplained Change in Mental Status Yes Sepsis Action Taken by Nursing No Action Required Pulse Rate - Lying 75 Pulse Rate - Sitting 85 Pulse Rate - Standing 87 Pulse Rate 79 72 Pulse Rate [Apical] Pulse Rate from SpO2 Sensor 73 Pulse Rhythm [Apical] Pulse Strength [Apical] Respiratory Rate 13 18 Respiratory Effort / Characteristics Respiratory Depth Respiratory Pattern Blood Pressure - Lying 146/56 H Blood Pressure - Sitting 121/62 Blood Pressure- Standing 122/62 Blood Pressure 145/63 H 144/51 H Blood Pressure [Right Arm] Blood Pressure Mean 90 82 Blood Pressure Mean [Right Arm] Blood Pressure Position [Right Arm] Pulse Oximetry 95 Oxygen Delivery Method Room Air Oxygen Flow Rate 10/20/18 13:07 10/20/18 13:10 10/20/18 13:20 Temperature Temperature Source Sepsis Recent Fever Within 48 Hours Sepsis New/Unexplained Change in Mental Status Sepsis Action Taken by Nursing Pulse Rate - Lying Pulse Rate - Sitting Pulse Rate - Standing Pulse Rate 72 72 73 Pulse Rate [Apical] Pulse Rate from SpO2 Sensor 73 72 76 Pulse Rhythm [Apical] Pulse Strength [Apical] Respiratory Rate 21 19 23 Respiratory Effort / Characteristics Respiratory Depth Respiratory Pattern Blood Pressure - Lying Blood Pressure - Sitting Blood Pressure- Standing Blood Pressure Blood Pressure [Right Arm] Blood Pressure Mean Blood Pressure Mean [Right Arm] Blood Pressure Position [Right Arm] Pulse Oximetry Oxygen Delivery Method Oxygen Flow Rate 10/20/18 13:30 10/20/18 13:31 10/20/18 13:40 Temperature Temperature Source Sepsis Recent Fever Within 48 Hours Sepsis New/Unexplained Change in Mental Status Sepsis Action Taken by Nursing Pulse Rate - Lying Pulse Rate - Sitting Pulse Rate - Standing Pulse Rate 75 74 75 Pulse Rate [Apical] Pulse Rate from SpO2 Sensor 119 H Pulse Rhythm [Apical] Pulse Strength [Apical] Respiratory Rate 23 17 14 Respiratory Effort / Characteristics Respiratory Depth Respiratory Pattern Blood Pressure - Lying Blood Pressure - Sitting Blood Pressure- Standing Blood Pressure 152/61 H Blood Pressure [Right Arm] Blood Pressure Mean 91 Blood Pressure Mean [Right Arm] Blood Pressure Position [Right Arm] Pulse Oximetry Oxygen Delivery Method Oxygen Flow Rate 10/20/18 13:50 10/20/18 14:00 10/20/18 14:10 Temperature Temperature Source Sepsis Recent Fever Within 48 Hours Sepsis New/Unexplained Change in Mental Status Sepsis Action Taken by Nursing Pulse Rate - Lying Pulse Rate - Sitting Pulse Rate - Standing Pulse Rate 71 73 76 Pulse Rate [Apical] Pulse Rate from SpO2 Sensor Pulse Rhythm [Apical] Pulse Strength [Apical] Respiratory Rate 23 17 19 Respiratory Effort / Characteristics Respiratory Depth Respiratory Pattern Blood Pressure - Lying Blood Pressure - Sitting Blood Pressure- Standing Blood Pressure 163/52 H Blood Pressure [Right Arm] Blood Pressure Mean 89 Blood Pressure Mean [Right Arm] Blood Pressure Position [Right Arm] Pulse Oximetry Oxygen Delivery Method Oxygen Flow Rate 10/20/18 14:20 10/20/18 14:40 10/20/18 14:50 Temperature Temperature Source Sepsis Recent Fever Within 48 Hours Sepsis New/Unexplained Change in Mental Status Sepsis Action Taken by Nursing Pulse Rate - Lying Pulse Rate - Sitting Pulse Rate - Standing Pulse Rate 76 86 79 Pulse Rate [Apical] Pulse Rate from SpO2 Sensor 86 81 Pulse Rhythm [Apical] Pulse Strength [Apical] Respiratory Rate 16 19 26 H Respiratory Effort / Characteristics Respiratory Depth Respiratory Pattern Blood Pressure - Lying Blood Pressure - Sitting Blood Pressure- Standing Blood Pressure Blood Pressure [Right Arm] Blood Pressure Mean Blood Pressure Mean [Right Arm] Blood Pressure Position [Right Arm] Pulse Oximetry 97 96 Oxygen Delivery Method Room Air Room Air Oxygen Flow Rate 10/20/18 15:00 10/20/18 15:10 10/20/18 15:20 Temperature Temperature Source Sepsis Recent Fever Within 48 Hours Sepsis New/Unexplained Change in Mental Status Sepsis Action Taken by Nursing Pulse Rate - Lying Pulse Rate - Sitting Pulse Rate - Standing Pulse Rate 80 79 80 Pulse Rate [Apical] Pulse Rate from SpO2 Sensor 81 80 81 Pulse Rhythm [Apical] Pulse Strength [Apical] Respiratory Rate 19 19 16 Respiratory Effort / Characteristics Respiratory Depth Respiratory Pattern Blood Pressure - Lying Blood Pressure - Sitting Blood Pressure- Standing Blood Pressure 132/58 L Blood Pressure [Right Arm] Blood Pressure Mean 82 Blood Pressure Mean [Right Arm] Blood Pressure Position [Right Arm] Pulse Oximetry 94 94 96 Oxygen Delivery Method Room Air Room Air Room Air Oxygen Flow Rate 10/20/18 15:30 10/20/18 15:31 10/20/18 15:40 Temperature Temperature Source Sepsis Recent Fever Within 48 Hours Sepsis New/Unexplained Change in Mental Status Sepsis Action Taken by Nursing Pulse Rate - Lying Pulse Rate - Sitting Pulse Rate - Standing Pulse Rate 81 80 79 Pulse Rate [Apical] Pulse Rate from SpO2 Sensor 82 80 79 Pulse Rhythm [Apical] Pulse Strength [Apical] Respiratory Rate 18 16 21 Respiratory Effort / Characteristics Respiratory Depth Respiratory Pattern Blood Pressure - Lying Blood Pressure - Sitting Blood Pressure- Standing Blood Pressure 146/62 H Blood Pressure [Right Arm] Blood Pressure Mean 90 Blood Pressure Mean [Right Arm] Blood Pressure Position [Right Arm] Pulse Oximetry 92 91 Oxygen Delivery Method Room Air Room Air Room Air Oxygen Flow Rate 10/20/18 15:50 10/20/18 16:00 10/20/18 16:01 Temperature Temperature Source Sepsis Recent Fever Within 48 Hours Sepsis New/Unexplained Change in Mental Status Sepsis Action Taken by Nursing Pulse Rate - Lying Pulse Rate - Sitting Pulse Rate - Standing Pulse Rate 80 79 79 Pulse Rate [Apical] Pulse Rate from SpO2 Sensor 79 79 79 Pulse Rhythm [Apical] Pulse Strength [Apical] Respiratory Rate 14 23 15 Respiratory Effort / Characteristics Respiratory Depth Respiratory Pattern Blood Pressure - Lying Blood Pressure - Sitting Blood Pressure- Standing Blood Pressure 153/47 H Blood Pressure [Right Arm] Blood Pressure Mean 82 Blood Pressure Mean [Right Arm] Blood Pressure Position [Right Arm] Pulse Oximetry Oxygen Delivery Method Room Air Room Air Room Air Oxygen Flow Rate 10/20/18 16:10 10/20/18 16:20 10/20/18 16:30 Temperature Temperature Source Sepsis Recent Fever Within 48 Hours Sepsis New/Unexplained Change in Mental Status Sepsis Action Taken by Nursing Pulse Rate - Lying Pulse Rate - Sitting Pulse Rate - Standing Pulse Rate 75 77 75 Pulse Rate [Apical] Pulse Rate from SpO2 Sensor 76 77 75 Pulse Rhythm [Apical] Pulse Strength [Apical] Respiratory Rate 17 16 16 Respiratory Effort / Characteristics Respiratory Depth Respiratory Pattern Blood Pressure - Lying Blood Pressure - Sitting Blood Pressure- Standing Blood Pressure 140/55 L Blood Pressure [Right Arm] Blood Pressure Mean 83 Blood Pressure Mean [Right Arm] Blood Pressure Position [Right Arm] Pulse Oximetry Oxygen Delivery Method Room Air Room Air Room Air Oxygen Flow Rate 10/20/18 16:40 10/20/18 16:50 10/20/18 17:00 Temperature Temperature Source Sepsis Recent Fever Within 48 Hours Sepsis New/Unexplained Change in Mental Status Sepsis Action Taken by Nursing Pulse Rate - Lying Pulse Rate - Sitting Pulse Rate - Standing Pulse Rate 78 76 74 Pulse Rate [Apical] 75 Pulse Rate from SpO2 Sensor 78 76 75 Pulse Rhythm [Apical] Regular Pulse Strength [Apical] Normal Respiratory Rate 19 17 20 Respiratory Effort / Characteristics Non-Labored Spontaneous Respiratory Depth Normal Respiratory Pattern Regular Blood Pressure - Lying Blood Pressure - Sitting Blood Pressure- Standing Blood Pressure 134/47 L Blood Pressure [Right Arm] 134/47 L Blood Pressure Mean 76 Blood Pressure Mean [Right Arm] 76 Blood Pressure Position [Right Arm] Sitting Pulse Oximetry 88 L Oxygen Delivery Method Room Air Room Air Room Air Oxygen Flow Rate 2.5 10/20/18 17:01 10/20/18 17:10 10/20/18 17:20 Temperature Temperature Source Sepsis Recent Fever Within 48 Hours Sepsis New/Unexplained Change in Mental Status Sepsis Action Taken by Nursing Pulse Rate - Lying Pulse Rate - Sitting Pulse Rate - Standing Pulse Rate 74 76 75 Pulse Rate [Apical] Pulse Rate from SpO2 Sensor 75 77 75 Pulse Rhythm [Apical] Pulse Strength [Apical] Respiratory Rate 17 23 16 Respiratory Effort / Characteristics Respiratory Depth Respiratory Pattern Blood Pressure - Lying Blood Pressure - Sitting Blood Pressure- Standing Blood Pressure Blood Pressure [Right Arm] Blood Pressure Mean Blood Pressure Mean [Right Arm] Blood Pressure Position [Right Arm] Pulse Oximetry 92 Oxygen Delivery Method Room Air Room Air Room Air Oxygen Flow Rate 10/20/18 17:30 10/20/18 17:50 Temperature Temperature Source Sepsis Recent Fever Within 48 Hours Sepsis New/Unexplained Change in Mental Status Sepsis Action Taken by Nursing Pulse Rate - Lying Pulse Rate - Sitting Pulse Rate - Standing Pulse Rate 74 74 Pulse Rate [Apical] Pulse Rate from SpO2 Sensor 74 Pulse Rhythm [Apical] Pulse Strength [Apical] Respiratory Rate 18 18 Respiratory Effort / Characteristics Respiratory Depth Respiratory Pattern Blood Pressure - Lying Blood Pressure - Sitting Blood Pressure- Standing Blood Pressure 143/44 H 143/44 H Blood Pressure [Right Arm] Blood Pressure Mean 77 Blood Pressure Mean [Right Arm] Blood Pressure Position [Right Arm] Pulse Oximetry 92 92 Oxygen Delivery Method Room Air Nasal Cannula Oxygen Flow Rate 2 GENERAL: Patient is awake, alert, and in no acute distress.Patient is resting comfortably and showing no signs of anxiety EYES: The conjunctivae are clear. The pupils are round and reactive. EARS, NOSE, MOUTH AND THROAT: The nose is without any evidence of any deformity. Mucous membranes are dry.Tongue is midline NECK: The neck is nontender and supple. RESPIRATORY: Normal respiratory effort is noted. There is no evidence of wheezing rhonchi or rales to auscultation. CARDIOVASCULAR: Regular rate and rhythm noted. There no murmurs rubs or gallops normal S1 normal S2 GASTROINTESTINAL: The abdomen is mildly distended. No guarding or rigidity. MUSCULOSKELETAL/EXTREMITIES: There is no evidence of gross deformity. Full range of motion is noted in the hips and shoulders. SKIN: Pedal edema bilaterally with venous stasis changes. NEUROLOGIC: Patient is awake alert and oriented x3. No facial droop. Course 1243: The patient was evaluated in room C2B. A history and physical were perfor med. 1422: I updated the patient who verbalized agreement and understanding of the treatment plan. 1426: I discussed the patient's case with Dr. Suzanna Austin who will evaluate the patient for further management. Consultations Consultation #1: Dr. Suzanna Austin Time: 14:26 Administered Medications Discontinued Medications Sodium Chloride (Nss 1000ml) 1,000 mls @ 999 mls/hr IV .[id number] MALIK Stop: 10/20/18 13:45 Last Admin: 10/20/18 13:23 Dose: Not Given Documented by: [id number] Sodium Chloride (Nss 1000ml) 500 mls @ 999 mls/hr IV .Q31M ONE Stop: 10/20/18 13:19 Last Infusion: 10/20/18 13:50 Dose: 0 mls/hr Documented by: [id number] Admin: 10/20/18 13:19 Dose: 999 mls/hr Documented by: [id number] Medical Decision Making Differential Diagnosis Differential diagnosis: Etiologies such as vasovagal event, infection, anemia, hypoglycemia, hypovolemia, electrolyte abnormalities, dysrhythmias, cardiac ischemia, cardiac tamponade, valvular heart disease, structural heart disease, seizure, vascular stenosis/dissection, pulmonary embolism, intracerebral event, toxicological process, neurologic event, as well as others were entertained. Medical Records Attestation: I reviewed the patient's medical records. Home Medications Current Medication List: was personally reviewed by me Laboratory Data Attestation: I reviewed the patient's lab results. Result diagrams: 10/20/18 12:43 10/20/18 12:43 Lab Results 10/20/18 10/20/18 10/20/18 Range/Units 12:43 12:43 12:43 WBC 7.75 (4.8-10.8) K/uL RBC 3.22 L (4.2-5.4) M/uL Hgb 10.1 L (12.0-16.0) g/dL Hct 31.5 L (37-47) % MCV 97.8 (80-100) fL MCH 31.4 (25-34) pg MCHC 32.1 (32-36) g/dL RDW Std Deviation 54.4 H (36.4-46.3) fL RDW Coeff of Brian 15.1 H (11.5-14.5) % Plt Count 205 (130-400) K/uL MPV 10.5 H (7.4-10.4) fL Immature Gran % (Auto) 0.4 % Neut % (Auto) 49.5 % Lymph % (Auto) 38.7 % Bacon % (Auto) 6.2 % Eos % (Auto) 4.8 % Baso % (Auto) 0.4 % Immature Gran # (Auto) 0.03 H (0.00-0.02) K/uL Neut # (Auto) 3.84 (1.4-6.5) K/uL Lymph # (Auto) 3.00 (1.2-3.4) K/uL Bacon # (Auto) 0.48 (0.11-0.59) K/uL Eos # (Auto) 0.37 (0-0.5) K/uL Baso # (Auto) 0.03 (0-0.2) K/uL PT 11.1 (9.0-12.0) Seconds INR 1.1 (0.9-1.1) APTT 21.1 (21.0-31.0) Seconds PTT Ratio 0.8 Sodium 137 (136-145) mmol/L Potassium 5.0 (3.5-5.1) mmol/L Chloride 99 (98-107) mmol/L Carbon Dioxide 29 (21-32) mmol/L Anion Gap 9.0 (3-11) BUN 76 H (7-18) mg/dl Creatinine 3.41 H (0.6-1.2) mg/dl Est Cr Clr Drug Dosing 14.8 ml/min Est GFR ( Amer) 13.8 Est GFR (Non-Af Amer) 11.9 BUN/Creatinine Ratio 22.1 H (10-20) Glucose 129 H (70-99) mg/dl Calcium 9.7 (8.5-10.1) mg/dl Magnesium 3.0 H (1.8-2.4) mg/dl Total Bilirubin 0.3 (0.2-1) mg/dl AST 21 (15-37) U/L ALT 15 (12-78) U/L Alkaline Phosphatase 101 (45-117) U/L Troponin I < 0.015 (0-0.045) ng/ml Total Protein 7.7 (6.4-8.2) gm/dl Albumin 3.1 L (3.4-5.0) gm/dl Globulin 4.6 H (2.5-4.0) gm/dl Albumin/Globulin Ratio 0.7 L (0.9-2) Lipase 165 (73-393) U/L TSH 1.480 (0.300-4.500) uIu/ml Urine Color Urine Appearance (Clear) Urine pH (4.5-7.5) Ur Specific Mcneal (1.000-1.030) Urine Protein (Negative) Urine Glucose (UA) (Negative) Urine Ketones (Negative) Urine Blood (Negative) Urine Nitrite (Negative) Urine Bilirubin (Negative) Urine Urobilinogen (Negative) Ur Leukocyte Esterase (Negative) Urine WBC (Auto) (0-5) /hpf Urine RBC (Auto) (0-4) /hpf U Hyaline Cast (Auto) (0-5) /lpf U Epithel Cells (Auto) (0-5) /lpf Urine Bacteria (Auto) (Negative) Ur Renal Epithelial Cell (0-5) /lpf Urine Yeast 10/20/18 Range/Units 14:30 WBC (4.8-10.8) K/uL RBC (4.2-5.4) M/uL Hgb (12.0-16.0) g/dL Hct (37-47) % MCV (80-100) fL MCH (25-34) pg MCHC (32-36) g/dL RDW Std Deviation (36.4-46.3) fL RDW Coeff of Brian (11.5-14.5) % Plt Count (130-400) K/uL MPV (7.4-10.4) fL Immature Gran % (Auto) % Neut % (Auto) % Lymph % (Auto) % Bacon % (Auto) % Eos % (Auto) % Baso % (Auto) % Immature Gran # (Auto) (0.00-0.02) K/uL Neut # (Auto) (1.4-6.5) K/uL Lymph # (Auto) (1.2-3.4) K/uL Bacon # (Auto) (0.11-0.59) K/uL Eos # (Auto) (0-0.5) K/uL Baso # (Auto) (0-0.2) K/uL PT (9.0-12.0) Seconds INR (0.9-1.1) APTT (21.0-31.0) Seconds PTT Ratio Sodium (136-145) mmol/L Potassium (3.5-5.1) mmol/L Chloride (98-107) mmol/L Carbon Dioxide (21-32) mmol/L Anion Gap (3-11) BUN (7-18) mg/dl Creatinine (0.6-1.2) mg/dl Est Cr Clr Drug Dosing ml/min Est GFR ( Amer) Est GFR (Non-Af Amer) BUN/Creatinine Ratio (10-20) Glucose (70-99) mg/dl Calcium (8.5-10.1) mg/dl Magnesium (1.8-2.4) mg/dl Total Bilirubin (0.2-1) mg/dl AST (15-37) U/L ALT (12-78) U/L Alkaline Phosphatase (45-117) U/L Troponin I (0-0.045) ng/ml Total Protein (6.4-8.2) gm/dl Albumin (3.4-5.0) gm/dl Globulin (2.5-4.0) gm/dl Albumin/Globulin Ratio (0.9-2) Lipase (73-393) U/L TSH (0.300-4.500) uIu/ml Urine Color Yellow Urine Appearance Clear (Clear) Urine pH 7.0 (4.5-7.5) Ur Specific Mcneal 1.011 (1.000-1.030) Urine Protein Negative (Negative) Urine Glucose (UA) Negative (Negative) Urine Ketones Negative (Negative) Urine Blood Negative (Negative) Urine Nitrite Negative (Negative) Urine Bilirubin Negative (Negative) Urine Urobilinogen Negative (Negative) Ur Leukocyte Esterase 1+ H (Negative) Urine WBC (Auto) 5-10 H (0-5) /hpf Urine RBC (Auto) 5-10 H (0-4) /hpf U Hyaline Cast (Auto) 1-5 (0-5) /lpf U Epithel Cells (Auto) 20-30 H (0-5) /lpf Urine Bacteria (Auto) Negative (Negative) Ur Renal Epithelial Cell 0-5 (0-5) /lpf Urine Yeast Not Reportable Imaging Data Radiologist's Impression: Radiology results as stated below per my review and the radiologist's interpretation: XR chest 1V portable CLINICAL HISTORY: syncope mental status change COMPARISON STUDY: 09/16/2018 FINDINGS: Improved aeration left lung base. Improved visibility left hemidiaphragm. Mild stable cardiomegaly. Lungs otherwise appear clear. IMPRESSION: Mild stable cardiomegaly. No acute process. Left lung base is now clear. The above report was generated using voice recognition software. It may contain grammatical, syntax or spelling errors. Electronically signed by: Gilles Lloyd M.D. 10/20/2018 1:02 PM ECG Data Attestation: I personally reviewed and interpreted this ECG as follows: Indication: syncope Rate (beats per minute): 76 Rhythm: sinus rhythm Findings: no PAC, no PVC, no ST depression, no ST elevation, no acute ischemic change and no ectopy Comparison ECG Date: from (09/16/18) Change: the following changes noted (sinus rhythm has replaced atrial fibrilla tion) Blood Pressure Blood Pressure Findings: Elevated blood pressure Blood Pressure Disposition: Referred to patients primary care provider BONY Paredes The patient is an 83-year-old female who presented to the emergency department after having a syncopal episode. The patient was recently discharged from our facility and was at [facility]. She is currently in inpatient rehab but was taken to her home today for home evaluation to see how the patient would do upon discharge. The patient had a syncopal episode. She was found to have an elevation in her creatinine compared to baseline. She was treated with IV fluids in the emergency department with some improvement. I discussed the patient's laboratory and radiographic studies with her. Given her findings I also discussed her case with the on-call [facility] hospitalist group. They have agreed to evaluate the patient in the emergency department for further management and disposition. Impression & Plan Dehydration, LISA (acute kidney injury), Syncope Discharge Plan Visit Data Chief Complaint: Syncope ED Provider: Narinder Guzmán Discharge Problem: Dehydration, LISA (acute kidney injury), Syncope Patient Disposition: Being Evaluated by Hospitalist Discharge Instructions Interventions: ED Discharge Assessment Last Done: 10/20/18 17:50 Forms [facility] Prescriptions: No Action levothyroxine 75 mcg tablet 75 mcg PO QAM RF: 0 gemfibrozil 600 mg tablet 600 mg PO QAM RF: 0 gabapentin 100 mg capsule 200 mg PO HS RF: 0 olmesartan 40 mg tablet 40 mg PO QAM RF: 0 Multi-Vitamin HP/Minerals Capsule 1 cap PO QAM RF: 0 cholecalciferol (vitamin D3) [Vitamin D3] 2,000 unit Capsule 2,000 unit PO 3XWK RF: 0 omega 5-etr-ovf-fish oil [Fish Oil] 1,000 mg (120 mg-180 mg) Capsule 1,000 mg PO QAM RF: 0 Novolin 70/30 U-100 Insulin 100 unit/mL (70-30) Suspension 40 unit SUBCUT BID RF: 0 aspirin [Aspirin Low Dose] 81 mg Tablet,Delayed Release (Dr/Ec) 81 mg PO DAILY RF: 0 metoprolol succinate 25 mg Tablet Extended Release 24 Hr 25 mg PO QPM Qty: 30 RF: 0 diclofenac sodium [Voltaren] 1 % Gel 1 applic EXT QID Qty: 5 RF: 0 furosemide 80 mg tablet 80 mg PO QAM Qty: 30 RF: 0 torsemide 20 mg tablet 20 mg PO DAILY RF: 0 torsemide 10 mg tablet 10 mg PO DAILY RF: 0 Referrals Referrals: Narinder Caldwell MD [Primary Care Provider] - Discharge Problem: Syncope Qualifiers: Syncope type: unspecified Qualified Code(s): R55 - Syncope and collapse The scribe's documentation has been prepared under my direction and personally reviewed by me in its entirety. I confirm that the note above accurately reflects all work, treatment, procedures, and medical decision making performed by me.
[2018-10-20] MEDS ORDERED: SODIUM CHLORIDE 0.9% 1000ML 1,000 ML IV SCH (18:49)
[2018-10-20] MEDS ORDERED: CARBOHYDRATES FOR HYPOGLYCEMIA PO PRN (18:49)
[2018-10-20] MEDS ORDERED: DEXTROSE 50% 50 ML SYRINGE IV PRN (18:49)
[2018-10-20] MEDS ORDERED: GLUCAGON FOR INJ 1 MG VIAL SQ PRN (18:49)
[2018-10-20] MEDS ORDERED: POLYETHYLENE (MIRALAX) 17 GM PACK PO PRN (18:49)
[2018-10-20] MEDS ORDERED: GLUCOSE 40% GEL 15 GM TUBE PO PRN (18:49)
[2018-10-20] MEDS ORDERED: GLUCOSE 10 TABS/TUBE PO PRN (18:49)
[2018-10-20] MEDS ORDERED: DOCUSATE SODIUM 100 MG CAP PO PRN (18:49)
[2018-10-20] MEDS: INSULIN ASPART 100 UNITS/ML 3 ML PEN SC SCH (20:07)
[2018-10-20] MEDS: INSULIN GLARGINE SOLOSTAR 100 UNITS/ML 3 ML PEN SC SCH (20:17)
[2018-10-20] MEDS: DICLOFENAC SOD 1% GEL 100 GM TUBE EXT SCH (20:18)
[2018-10-20] MEDS: GABAPENTIN 100 MG CAP PO SCH (20:49)
[2018-10-20] MEDS: METOPROLOL SUCC 25MG EXT REL TAB PO SCH (20:52)
[2018-10-21] MEDS ORDERED: MICONAZOLE NITRATE POWDER 43 GM EXT PRN (05:25)
[2018-10-21] MEDS: LEVOTHYROXINE SODIUM 75 MCG TABLET PO SCH (05:41)
[2018-10-21 07:39] LABS: Hematocrit (blood only) 29.4 % (37-47); Hemoglobin 9.1 g/dL (12.0-16.0); Mean Corpuscular Volume 99.7 fL (80-100); Platelet Count 185 K/uL (130-400); RDW Coefficient of Variation 15.2 % (11.5-14.5); RDW Standard Deviation 54.9 fL (36.4-46.3); Red Blood Count 2.95 M/uL (4.2-5.4); White Blood Count 5.69 K/uL (4.8-10.8)
[2018-10-21 08:03] LABS: Basophils # (auto) 0.03 K/uL (0-0.2); Basophils % (auto) 0.5 %; Eosinophils # (auto) 0.38 K/uL (0-0.5); Eosinophils % (auto) 6.7 %; Immature Granulocytes # (auto) 0.02 K/uL (0.00-0.02); Immature Granulocytes % (auto) 0.4 %; Lymphocytes # (auto) 3.14 K/uL (1.2-3.4); Lymphocytes % (auto) 55.2 %; Monocytes # (auto) 0.35 K/uL (0.11-0.59); Monocytes % (auto) 6.2 %; Neutrophils # (auto) 1.77 K/uL (1.4-6.5)
[2018-10-21 08:09] LABS: BUN Creatinine Ratio 25.5 (10-20); Calcium 9.3 mg/dl (8.5-10.1); Creatinine Clr Calc Pharmacy 18.2 ml/min; Est GFR (African American) 18.1; Est GFR (Non-African American) 15.6; Potassium 4.5 mmol/L (3.5-5.1)
[2018-10-21] MEDS: DICLOFENAC SOD 1% GEL 100 GM TUBE EXT SCH ×4 (08:09→20:24)
[2018-10-21] MEDS: ASPIRIN 81 MG ECTAB PO SCH (08:09)
[2018-10-21] MEDS: INSULIN GLARGINE SOLOSTAR 100 UNITS/ML 3 ML PEN SC SCH ×2 (08:10→20:22)
[2018-10-21] MEDS: INSULIN ASPART 100 UNITS/ML 3 ML PEN SC SCH ×4 (08:11→20:32)
[2018-10-21] MEDS ORDERED: MAGNESIUM HYDROXIDE SUSP 30 ML UDC PO ONE (11:51)
--- NOTE | 2018-10-21 16:11 | Hospitalist Progress Note ---
Date of Service October 21, 2018 Assessment & Plan (1) Syncope: Likely secondary to dehydration/LISA, orthostasis, deconditioning and over- exertion orthostatics were positive on admission -Telemetry monitoring without arrhythmia thus far -Patient with echocardiogram on 13 September, no valvular disease or WMA. 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 Patient is making urine. 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 She was starte don Toprol XL 25mg daily and was NOT started on anticoagulation Presently in NSR -Continue Metoprolol -Continue ASA, no anticoagulation (5) Chronic anemia: Hg=10.1, Hct=31.5 which is increased from prior values on admission and now back down to 9.1 which is baseline recently. MCV 99.7, macrocytic Also could have Anemia of chronic kidney disease -check Fe studies, B12, folate in the AM -Continue to monitor CBC (6) Diabetes mellitus: Chronic. Blood sugar controlled but with h/o hypoglycemia at [place] -Hold Novolin from home -Lantus 10u BID -Novolog SS -CC diet as tolerated -Decreased Gabapentin for renal dosing -Continue to monitor (7) Hypertension: Blood pressure controlled -Holding Olmesartan and Lasix in setting of LISA -Continue to monitor (8) Hypothyroidism (acquired): Chronic, TSH recently 1.48 -Continue Synthroid (9) Hypertriglyceridemia: Chronic -Holding Gemfibrozil and Fish oil for now (10) Bilateral leg edema: chronic and on previous prolonged hospital admission, her weight had gone very high. 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 Denies any lightheadedness, no nausea, no headache, no CP or SOB, no abd pain, no diarrhea or constipation. SHe is making a normal amount of urine. Tolerating po Reports her legs are less swollen than previously. She thinks that when her episodes of passing out occurred yesterday, she was exerting herself going all through her home safety visit way more than what she had been for weeks prior. Review of Systems Review of Systems: All systems reviewed & are unremarkable except as noted in HPI & below Physical Exam Constitutional: WD/WN, vitals as above + obese Eyes: PERRL, conjunctivae normal, anicteric sclerae ENMT: external ear and nose normal, oropharynx normal Neck: trachea midline, no thyromegaly Respiratory: normal respiratory effort, lungs clear to auscultation Cardiovascular: Rate/Rhythm: regular rate and regular rhythm Heart Sounds: no murmur Extremities: + edema (2+ pitting woody edema legs bilat to knees) Gastrointestinal (Abdomen): normal bowel sounds, soft, nontender, no hepa tosplenomegaly Musculoskeletal: Extremities: extremities normal to inspection; no cyanosis and no clubbing Skin: no rashes, warm and dry Neurologic: moves all extremities and awake; no focal motor deficits Psychiatric: A+Ox3, euthymic affect Results & Data Vital Signs (Past 12 Hours) Vital Signs Temp Pulse Pulse Resp BP BP Pulse Ox 10/21/18 15:32 36.8 C 81 18 132/65 93 10/21/18 12:15 36.8 C 75 18 111/64 94 10/21/18 09:16 72 10/21/18 08:07 184/76 H 10/21/18 07:22 36.6 C 71 19 113/68 99 Laboratory Results 10/21/18 10/21/18 10/21/18 Range/Units 20:29 16:57 16:41 WBC (4.8-10.8) K/uL RBC (4.2-5.4) M/uL Hgb (12.0-16.0) g/dL Hct (37-47) % MCV (80-100) fL MCH (25-34) pg MCHC (32-36) g/dL RDW Std Deviation (36.4-46.3) fL RDW Coeff of Brian (11.5-14.5) % Plt Count (130-400) K/uL MPV (7.4-10.4) fL Immature Gran % (Auto) % Neut % (Auto) % Lymph % (Auto) % [place] % (Auto) % Eos % (Auto) % Baso % (Auto) % Immature Gran # (Auto) (0.00-0.02) K/uL Neut # (Auto) (1.4-6.5) K/uL Lymph # (Auto) (1.2-3.4) K/uL [place] # (Auto) (0.11-0.59) K/uL Eos # (Auto) (0-0.5) K/uL Baso # (Auto) (0-0.2) K/uL Sodium 139 (136-145) mmol/L Potassium 4.9 (3.5-5.1) mmol/L Chloride 103 (98-107) mmol/L Carbon Dioxide 29 (21-32) mmol/L Anion Gap 7.0 (3-11) BUN 65 H (7-18) mg/dl Creatinine 2.63 H (0.6-1.2) mg/dl Est Cr Clr Drug Dosing 18.8 ml/min Est GFR ( Amer) 18.9 Est GFR (Non-Af Amer) 16.3 BUN/Creatinine Ratio 24.8 H (10-20) Glucose 176 H (70-99) mg/dl POC Glucose 180 H 186 H (70-99) Calcium 9.6 (8.5-10.1) mg/dl 0710/21/18 10/21/18 Range/Units 11:24 07:59 06:58 WBC (4.8-10.8) K/uL RBC (4.2-5.4) M/uL Hgb (12.0-16.0) g/dL Hct (37-47) % MCV (80-100) fL MCH (25-34) pg MCHC (32-36) g/dL RDW Std Deviation (36.4-46.3) fL RDW Coeff of Brian (11.5-14.5) % Plt Count (130-400) K/uL MPV (7.4-10.4) fL Immature Gran % (Auto) % Neut % (Auto) % Lymph % (Auto) % [place] % (Auto) % Eos % (Auto) % Baso % (Auto) % Immature Gran # (Auto) (0.00-0.02) K/uL Neut # (Auto) (1.4-6.5) K/uL Lymph # (Auto) (1.2-3.4) K/uL [place] # (Auto) (0.11-0.59) K/uL Eos # (Auto) (0-0.5) K/uL Baso # (Auto) (0-0.2) K/uL Sodium 143 (136-145) mmol/L Potassium 4.5 (3.5-5.1) mmol/L Chloride 107 (98-107) mmol/L Carbon Dioxide 28 (21-32) mmol/L Anion Gap 7.0 (3-11) BUN 69 H (7-18) mg/dl Creatinine 2.72 H D (0.6-1.2) mg/dl Est Cr Clr Drug Dosing 18.2 ml/min Est GFR ( Amer) 18.1 Est GFR (Non-Af Amer) 15.6 BUN/Creatinine Ratio 25.5 H (10-20) Glucose 114 H (70-99) mg/dl POC Glucose 230 H 134 H (70-99) Calcium 9.3 (8.5-10.1) mg/dl 10/21/18 Range/Units 06:58 WBC 5.69 (4.8-10.8) K/uL RBC 2.95 L (4.2-5.4) M/uL Hgb 9.1 L (12.0-16.0) g/dL Hct 29.4 L (37-47) % MCV 99.7 (80-100) fL MCH 30.8 (25-34) pg MCHC 31.0 L (32-36) g/dL RDW Std Deviation 54.9 H (36.4-46.3) fL RDW Coeff of Brian 15.2 H (11.5-14.5) % Plt Count 185 (130-400) K/uL MPV 11.0 H (7.4-10.4) fL Immature Gran % (Auto) 0.4 % Neut % (Auto) 31.0 % Lymph % (Auto) 55.2 % [place] % (Auto) 6.2 % Eos % (Auto) 6.7 % Baso % (Auto) 0.5 % Immature Gran # (Auto) 0.02 (0.00-0.02) K/uL Neut # (Auto) 1.77 (1.4-6.5) K/uL Lymph # (Auto) 3.14 (1.2-3.4) K/uL [place] # (Auto) 0.35 (0.11-0.59) K/uL Eos # (Auto) 0.38 (0-0.5) K/uL Baso # (Auto) 0.03 (0-0.2) K/uL Sodium (136-145) mmol/L Potassium (3.5-5.1) mmol/L Chloride (98-107) mmol/L Carbon Dioxide (21-32) mmol/L Anion Gap (3-11) BUN (7-18) mg/dl Creatinine (0.6-1.2) mg/dl Est Cr Clr Drug Dosing ml/min Est GFR ( Amer) Est GFR (Non-Af Amer) BUN/Creatinine Ratio (10-20) Glucose (70-99) mg/dl POC Glucose (70-99) Calcium (8.5-10.1) mg/dl PG Care Time/CCT Total # of Minutes Spent Total Time Spent with Patient: Total time spent is greater than 50% in coordination of care (as documented) at patient's floor/unit and/or counseling patient: (1) Diabetes mellitus Diabetes mellitus complication status: without complication Diabetes mellitus assistant terminal manager insulin use: with detention use Diabetes mellitus type: type 2 Qualified Code(s): E11.9 - Type 2 diabetes mellitus without complications; Z79.4 - terminal gauger (current) use of insulin (2) Afib Atrial fibrillation type: unspecified Qualified Code(s): I48.91 - Unspecified atrial fibrillation (3) Syncope Syncope type: unspecified Qualified Code(s): R55 - Syncope and collapse (4) Hypertension Hypertension type: essential hypertension Qualified Code(s): I10 - Essential (primary) hypertension
[2018-10-21 17:30] LABS: BUN Creatinine Ratio 24.8 (10-20); Calcium 9.6 mg/dl (8.5-10.1); Creatinine Clr Calc Pharmacy 18.8 ml/min; Est GFR (African American) 18.9; Est GFR (Non-African American) 16.3; Potassium 4.9 mmol/L (3.5-5.1)
[2018-10-21] MEDS: GABAPENTIN 100 MG CAP PO SCH (20:23)
[2018-10-21] MEDS: METOPROLOL SUCC 25MG EXT REL TAB PO SCH (20:24)
[2018-10-22] MEDS: LEVOTHYROXINE SODIUM 75 MCG TABLET PO SCH (05:44)
[2018-10-22 07:30] LABS: Basophils # (auto) 0.04 K/uL (0-0.2); Basophils % (auto) 0.5 %; Eosinophils % (auto) 4.7 %; Hematocrit (blood only) 30.9 % (37-47); Hemoglobin 9.6 g/dL (12.0-16.0); Immature Granulocytes # (auto) 0.03 K/uL (0.00-0.02); Immature Granulocytes % (auto) 0.4 %; Lymphocytes # (auto) 3.92 K/uL (1.2-3.4); Lymphocytes % (auto) 45.7 %; Mean Corpuscular Hgb Conc 31.1 g/dL (32-36); Mean Corpuscular Volume 98.7 fL (80-100); Mean Platelet Volume 10.3 fL (7.4-10.4); Monocytes # (auto) 0.58 K/uL (0.11-0.59); Monocytes % (auto) 6.8 %; Neutrophils % (auto) 41.9 %; Platelet Count 189 K/uL (130-400); RDW Standard Deviation 53.9 fL (36.4-46.3); Red Blood Count 3.13 M/uL (4.2-5.4); White Blood Count 8.57 K/uL (4.8-10.8)
[2018-10-22] MEDS: INSULIN GLARGINE SOLOSTAR 100 UNITS/ML 3 ML PEN SC SCH (08:07)
[2018-10-22] MEDS: ASPIRIN 81 MG ECTAB PO SCH (08:07)
[2018-10-22 08:08] LABS: BUN Creatinine Ratio 23.9 (10-20); Calcium 9.6 mg/dl (8.5-10.1); Creatinine Clr Calc Pharmacy 18.9 ml/min; Est GFR (African American) 18.9; Est GFR (Non-African American) 16.3; Potassium 4.6 mmol/L (3.5-5.1)
[2018-10-22] MEDS: INSULIN ASPART 100 UNITS/ML 3 ML PEN SC SCH ×2 (08:09→12:08)
[2018-10-22] MEDS: DICLOFENAC SOD 1% GEL 100 GM TUBE EXT SCH ×2 (08:11→12:09)
[2018-10-22 08:13] LABS: Ferritin 170.6 ng/ml (8-388)
[2018-10-22] MEDS ORDERED: HEPARIN SOD 5,000 UNIT/0.5 ML VIAL SQ SCH (09:00)
[2018-10-22 09:05] LABS: Vitamin B12 659 pg/ml (211-911)
[2018-10-22 09:06] LABS: Folate (Folic Acid) > 24.00 ng/ml (>5.38)
--- NOTE | 2018-10-22 16:33 | Discharge Summary ---
Date of Service October 22, 2018 Admission HPI Per Admitting Provider Dana Mike is an 83yo C female presenting after a syncopal event. She had a recent prolonged hospital stay for pancreatitis from 09/11 - 10/03 after which she was discharged to [facility] to complete rehab. She states that she felt weak and tired during rehab but was able to complete her activities. She had a home evaluation today in preparation for discharge from [facility]. Per , patient was in the car after the home evaluation and became unresponsive and slumped over in her chair. She regained consciousness after a few moments. She denies CP/Palpitations/dizziness/numbness/weakness/incontinence. denies seizure-like activity, slurred speech or confusion. Patient presently feels well. ER evaluation with LISA on CKD, BUN=76 and Cr=3.41 ER Course: NSS Principal Diagnosis Syncope, orthostasis, LISA, dehydration Discharge Exam Constitutional WD/WN, vitals as above + obese Eyes PERRL, conjunctivae normal, anicteric sclerae ENMT external ear and nose normal, oropharynx normal Neck trachea midline, no thyromegaly Respiratory normal respiratory effort, lungs clear to auscultation Cardiovascular Rate/Rhythm: regular rate and regular rhythm Heart Sounds: no murmur Extremities: + edema (2+ pitting woody edema legs bilat to knees) Gastrointestinal (Abdomen) normal bowel sounds, soft, nontender, no hepatosplenomegaly Musculoskeletal Extremities: extremities normal to inspection; no cyanosis and no clubbing Skin no rashes, warm and dry Neurologic moves all extremities and awake; no focal motor deficits Psychiatric A+Ox3, euthymic affect Discharge Data Allergies Allergy/AdvReac Type Severity Reaction Status Date / Time Sulfa (Sulfonamide Allergy Unknown BLISTERS Verified 10/20/18 14:16 Antibiotics) Consultations None Ordered Studies CXR Hospital Course (1) Syncope: Likely secondary to dehydration/LISA, orthostasis, deconditioning and over- exertion orthostatics were positive on admission and now improved -Telemetry monitoring without arrhythmia -Patient with echocardiogram on 13 September, no valvular disease or WMA. EF of 60- 65% -now improved with IVF resuscitation and holding diuretics -PT/OT evaluation to continue therapy--> recommending return to SNF (2) LISA (acute kidney injury): BUN=76, Cr=3.41 on admission, baseline science interpreter around 2.0 but had been as low as 1.3 recently. Patient is making urine. 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 She was started on Toprol XL 25mg daily and was NOT started on anticoagulation Presently in NSR -Continue Metoprolol -Continue ASA, no anticoagulation (5) Chronic anemia: Hg=10.1, Hct=31.5 which is increased from prior values on admission and now back down to 9.6 which is baseline recently. MCV 99.7, macrocytic, however B12 and folate normal Fe studies are normal Likely Anemia of chronic kidney disease -but could have low level myelodysplasia given macrocytosis--> recommend Heme referral as outpt (6) Diabetes mellitus: Chronic. Blood sugar controlled but with h/o hypoglycemia at [place] -Lantus 10u BID was given while here -Novolog SS -can restart Novolin 70/30 on discharge but would decrease dose to 20 bid (7) Hypertension: Blood pressure controlled -Holding Olmesartan and Lasix in setting of LISA -Continue to monitor (8) Hypothyroidism (acquired): Chronic, TSH recently 1.48 -Continue Synthroid (9) Hypertriglyceridemia: Chronic -continue Gemfibrozil and Fish oil (10) Bilateral leg edema: chronic and on previous prolonged hospital admission, her weight had gone very high. 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 Bhatt as an outpt -LISA as above -renally dose meds -avoid nephrotoxins (13) DVT prophylaxis: Heparin SQ q12h was provided Dispo-stable for discharge back to [facility] for continued rehab Total Time Total Time Spent Total Time Spent (In Minutes): >30 min Total Time Includes: Examination of the Patient, Discharge Planning and Medication Reconciliation Discharge Plan Discharge Items Reason For Visit: SYNCOPE,LISA ON CKD Discharge Diagnosis: Syncope, LISA on CKD Condition: Fair Discharge Goals: Diagnostic testing, Improve disease control, Learn about illness, Prevent disease and Therapeutic intervention Activity: As commented below Lifting: Gradually increase as tolerated Bathing: No limitations Exercise/Sports: Gradually increase as tolerated Non-emergency contact: Primary Care Provider, Surgeon and Geosciences Associate Professor Call non-emergency contact if: you have any medication questions, your symptoms worsen, your pain is not controlled, your pain is worsening, your pain is unusual for you, your pain is concerning for you, you have a fever and your temperature is above 101 Follow-up/Referrals: Krzysztof Bhatt MD [Physician] - (Please follow up within 2 weeks ) Narinder Caldwell MD [Primary Care Provider] - Diet: Low Sodium (2gm) Addtl Provider Instructions: Ms. Mike was admitted after having 2 episodes of syncope which was secondary to orthostasis and dehydration. She had acute kidney injury which resolved with IVF hydration and withholding her lasix and olmesartan. Please check a BMP in 1 day and restart lasix and olmesartan when renal function returns to baseline. Prescriptions: Continued levothyroxine 75 mcg tablet 75 mcg PO QAM RF: 0 gemfibrozil 600 mg tablet 600 mg PO QAM RF: 0 gabapentin 100 mg capsule 200 mg PO HS RF: 0 Multi-Vitamin HP/Minerals Capsule 1 cap PO QAM RF: 0 cholecalciferol (vitamin D3) [Vitamin D3] 2,000 unit Capsule 2,000 unit PO 3XWK RF: 0 omega 2-ktm-xog-fish oil [Fish Oil] 1,000 mg (120 mg-180 mg) Capsule 1,000 mg PO QAM RF: 0 aspirin [Aspirin Low Dose] 81 mg Tablet,Delayed Release (Dr/Ec) 81 mg PO DAILY RF: 0 metoprolol succinate 25 mg Tablet Extended Release 24 Hr 25 mg PO QPM Qty: 30 RF: 0 diclofenac sodium [Voltaren] 1 % Gel 1 applic EXT QID Qty: 5 RF: 0 olmesartan 40 mg tablet 40 mg PO QAM Qty: 0 RF: 0 furosemide 80 mg tablet 80 mg PO QAM Qty: 30 RF: 0 Changed Novolin 70/30 U-100 Insulin 100 unit/mL (70-30) Suspension 20 unit SUBCUT BID Qty: 0 RF: 0 Discontinued varicella-zoster gE vac,2 of 2 50 mcg suspension for reconstitution IM .Inject 0.5mL Intramu Qty: 2 RF: 0 Skilled Items Patient informed of condition?: Yes DNR: Yes Discharge Level of Care: Skilled Communicable Disease: No Discharge Prognosis: Improving Admission Data Admit Date/Time: 10/20/18 15:50 Attending Provider: Radha Harris Admit Provider: Rownea Garcia Primary Care Provider: Narinder Caldwell Other Providers: Rowena Garcia Service: Telemetry Medical Other Interventions: Discharge Summary Assessment (RN) Last Done: 10/22/18 14:19 Pending Studies at Discharge: No
== END 2018-10-22 17:14 ==
LOC: 2W 12:16 → ED 12:16 → SUATTDRO 15:50 → 2W 17:50

== ENCOUNTER 2020-03-13 22:22 | Inpatient (IN) ==
[2020-03-13] MEDS ORDERED: ACETAMINOPHEN 1,000 MG/100 ML VIAL IV STA (22:38)
[2020-03-13] MEDS ORDERED: SODIUM CHLORIDE 0.9% 1000ML 1,000 ML IV SCH (22:45)
[2020-03-13 23:25] LABS: Basophils # (auto) 0.02 K/uL (0-0.2); Basophils % (auto) 0.2 %; Eosinophils # (auto) 0.17 K/uL (0-0.5); Eosinophils % (auto) 1.7 %; Hematocrit (blood only) 31.2 % (37-47); Hemoglobin 10.1 g/dL (12.0-16.0); Immature Granulocytes # (auto) 0.02 K/uL (0.00-0.02); Immature Granulocytes % (auto) 0.2 %; Lymphocytes # (auto) 1.51 K/uL (1.2-3.4); Lymphocytes % (auto) 15.2 %; Mean Corpuscular Hemoglobin 30.9 pg (25-34); Mean Corpuscular Hgb Conc 32.4 g/dL (32-36); Mean Corpuscular Volume 95.4 fL (80-100); Mean Platelet Volume 11.3 fL (7.4-10.4); Monocytes # (auto) 0.69 K/uL (0.11-0.59); Monocytes % (auto) 6.9 %; Neutrophils # (auto) 7.53 K/uL (1.4-6.5); Neutrophils % (auto) 75.8 %; Platelet Count 171 K/uL (130-400); RDW Coefficient of Variation 14.6 % (11.5-14.5); Red Blood Count 3.27 M/uL (4.2-5.4); White Blood Count 9.94 K/uL (4.8-10.8)
[2020-03-13] MEDS ORDERED: MoRPHine SULFATE 2 MG/ML CARP IV PRN (23:46)
[2020-03-13 23:59] LABS: INR 1.2 (0.9-1.1); Partial Thromboplastin Ratio 1.1; Partial Thromboplastin Time 30.3 Seconds (21.0-31.0); Prothrombin Time 12.4 Seconds (9.0-12.0)
[2020-03-14 00:05] LABS: BUN Creatinine Ratio 18.6 (10-20); Calcium 8.9 mg/dl (8.5-10.1); Creatinine Clr Calc Pharmacy 27.2 ml/min; Est GFR (African American) 29.3; Est GFR (Non-African American) 25.2; Potassium 3.7 mmol/L (3.5-5.1)
[2020-03-14 00:16] LABS: Albumin Globulin Ratio 0.7 (0.9-2); Bilirubin,Total 0.4 mg/dl (0.2-1); C Reactive Protein 9.83 mg/dl (0-0.29); Globulin 4.2 gm/dl (2.5-4.0); Thyroid Stimulating Hormone 1.8 uIu/ml (0.300-4.500); Total Protein 7.2 gm/dl (6.4-8.2)
[2020-03-14] MEDS ORDERED: cefTRIAXone SODIUM 2,000 MG/70 ML BAG IV STA (01:21)
--- NOTE | 2020-03-14 02:25 | Emergency Department Note ---
History of Present Illness General Chief complaint: Infection Stated complaint: LEFT KNEE PAIN Time Seen by Provider: 03/13/20 22:26 History of Present Illness This is an 84-year-old female presenting to the emergency department for evaluation of left leg pain worsening over the past 1 day. The patient feels li ke her leg is swelling and she is having pain primarily in the lower leg, but also in the medial upper thigh. She does not report having a fever at home, although she does have a low-grade temperature here in the ER. She did take Tylenol around lunchtime without significant improvement of symptoms. She is having difficulty walking because of the pain in her left leg and contacted an ambulance to come to the ER. The patient has extent of comorbidities including history of breast cancer, A. fib, diabetes, venous insufficiency, and healed sacral decubitus ulcer. The patient lives at home with her . She is not having URI symptoms, chest pain, chest tightness, or shortness of breath. No abdominal pain. She does not report any injury or trauma. There is no history of DVT in the past. Home Medications Medication Instructions Recorded Confirmed Type aspirin 81 mg tablet,delayed 81 mg PO QAM 11/09/18 03/13/20 History release cholecalciferol (vitamin D3) 50 2,000 unit PO 3XWK 11/09/18 03/13/20 History mcg (2,000 unit) capsule multivitamin,tx-minerals 1 cap PO QAM 11/09/18 03/13/20 History omega 0-fxk-gna-fish oil 1,000 mg 1 cap PO QAM cap 11/09/18 03/13/20 History (120 mg-180 mg) capsule ascorbic acid (vitamin C) [Vitamin 500 mg PO DAILY 11/18/18 03/13/20 History C] levothyroxine 75 mcg PO QAM 05/20/19 03/13/20 History gabapentin 100 mg capsule 200 mg PO HS #180 cap 06/01/19 03/13/20 Rx insulin human U-100 NPH-regulr See Rx Instructions SQ BID ml 01/18/20 03/13/20 History 70-30 mix 100 unit/mL subcutaneous susp gemfibrozil 600 mg tablet 600 mg PO QAM #30 tab 02/01/20 03/13/20 Rx torsemide 20 mg tablet 40 mg PO BID #360 tab 02/24/20 03/13/20 Rx Allergies Allergy/AdvReac Type Severity Reaction Status Date / Time Sulfa (Sulfonamide Allergy Intermediate BLISTERS Verified 03/13/20 23:56 Antibiotics) Past Med/Surg History Medical History (Updated 03/14/20 @ 22:04 by Rowdy Szymanski PA-C) Acute kidney injury (11/2018) Afib Anemia Cancer RIGHT BREAST CANCER Cellulitis of right leg Chronic back pain Chronic kidney disease, stage 3 Congenital dislocation of hip Degenerative disc disease Diabetes mellitus IDDM DNR (do not resuscitate) Hypertension Obesity Osteoarthritis Pancreatitis SEPTEMBER 2018 Peripheral neuropathy BILATERAL FEET Pressure ulcer of right heel, stage 3 Stage III pressure ulcer of right buttock Surgical History History of cataract surgery BILATERAL History of cholecystectomy History of detached retina repair LEFT History of hip surgery LEFT HIP DISLOCATION SURGERY A CHILD (UNSUCCESSFUL) History of mastectomy RIGHT BREAST WITH 1 LYMPH NODE REMOVAL History of thyroidectomy REMOVAL OF GOITER Hx of tonsillectomy Status post debridement hip open wound Family History Unknown Cancer Father Bone cancer Mother Diabetes Daughter Diabetes Breast cancer Son Diabetes Sister Diabetes Grandmother (Paternal) Breast cancer Denies family history of Ovarian cancer Prostate cancer Myocardial infarction Colorectal cancer Social History Smoking Status: Never smoker Second Hand Exposure: No; Hx Alcohol Use: No Hx Substance Use: No Preferred Language: Cuban Communication Ability: Effective Visual Impairment: No Limitations Transplant Worker Required: No Beliefs That Will Affect Care: None marital status: Current Living Situation: Spouse Other Information That Helps Us Care for You: No Feels Safe at Home: Yes Safety Concerns: Feels Safe At This Time Seatbelt Use: always Assistive Devices: Walker Review of Systems A total of 10 systems reviewed and were otherwise negative Physical Exam Vital Signs Vital Signs - 24 hr 03/13/20 22:31 03/14/20 00:55 03/14/20 02:00 Temperature 37.8 C H 36.8 C Temperature Source Oral Oral Pulse Rate 99 H Pulse Rate [Apical] 96 H 100 H Respiratory Rate 18 18 18 Respiratory Effort / Characteristics Non-Labored Non-Labored Respiratory Depth Normal Normal Blood Pressure 133/77 Blood Pressure [Left Arm] 121/46 L 129/51 L Blood Pressure Mean 95 Blood Pressure Mean [Left Arm] 71 77 Pulse Oximetry 95 93 93 Oxygen Delivery Method Room Air Room Air Room Air Sepsis Recent Fever Within 48 Hours No Sepsis New/Unexplained Change in Mental Status No Sepsis Action Taken by Nursing No Action Required 03/14/20 02:31 Temperature Temperature Source Pulse Rate Pulse Rate [Apical] 10 L Respiratory Rate 19 Respiratory Effort / Characteristics Respiratory Depth Blood Pressure Blood Pressure [Left Arm] 130/50 L Blood Pressure Mean Blood Pressure Mean [Left Arm] 76 Pulse Oximetry 94 Oxygen Delivery Method Room Air Sepsis Recent Fever Within 48 Hours Sepsis New/Unexplained Change in Mental Status Sepsis Action Taken by Nursing VITALS: Vitals are noted on the nurse's note and reviewed by myself. Vital signs with low-grade fever GENERAL: Elderly female who is comfortable and cooperative with the examination. HEAD: Normocephalic atraumatic. HEART: Regular rate and rhythm without murmurs gallops or rubs. LUNGS: Clear to auscultation bilaterally without wheezes, rales or rhonchi. No retractions or accessory muscle use. ABDOMEN: Positive normal bowel sounds x 4. Soft, nontender, without masses or organomegaly. No guarding or rebound tenderness. MUSCULOSKELETAL: Diffuse bilateral lower extremity edema that appears with chronic insufficiency changes. The left lower extremity is quite edematous from the ankle to the proximal tibia. There is additional erythema along the medial thigh without distinct palpable cord.. NEURO: Patient was alert and oriented to person place and time. CN II through XII grossly intact. Course Administered Medications Ascorbic Acid (Ascorbic Acid 500 Mg Tab) 500 mg PO DAILY [facility] Stop: 04/13/20 08:59 Last Admin: 03/14/20 09:01 Dose: 500 mg Documented by: [id number] Aspirin (Aspirin 81 Mg Ectab) 81 mg PO QAM [facility] Stop: 04/13/20 08:59 Last Admin: 03/14/20 08:59 Dose: 81 mg Documented by: [id number] Fish Oil ([place]-3 (Purified Fish Oil) 1 Gm Cap) 1 gm PO QAM [facility] Stop: 04/13/20 08:59 Last Admin: 03/14/20 09:01 Dose: 1 gm Documented by: [id number] Gabapentin (Gabapentin 100 Mg Cap) 200 mg PO HS [facility] Stop: 04/13/20 20:59 Last Admin: 03/14/20 21:38 Dose: 200 mg Documented by: [id number] Gemfibrozil (Gemfibrozil 600 Mg Tab) 600 mg PO QAM [facility] Stop: 04/13/20 08:59 Last Admin: 03/14/20 09:00 Dose: 600 mg Documented by: [id number] Heparin Sodium (Porcine) (Heparin Sod 5,000 Unit/0.5 Ml Vial) 7,500 units SQ Q8 [facility] Stop: 04/13/20 05:59 Last Admin: 03/14/20 21:39 Dose: 7,500 units Documented by: [id number] Admin: 03/14/20 13:09 Dose: Not Given Documented by: [id number] Admin: 03/14/20 09:09 Dose: 7,500 units Documented by: [id number] Daptomycin 300 mg/ Syringe 6 mls @ 0.01 mls/min IV Q48H [facility]; Protocol Stop: 03/21/20 13:29 Last Admin: 03/14/20 13:56 Dose: 0.01 mls/min Documented by: [id number] Insulin Aspart (Insulin Aspart 100 Units/Ml 3 Ml Pen) 0 units SC ACHS [facility]; Pro tocol Stop: 04/13/20 07:29 Last Admin: 03/14/20 21:42 Dose: 7 units Documented by: [id number] Cosigned by: [id number] Admin: 03/14/20 17:54 Dose: 14 units Documented by: [id number] Cosigned by: [id number] Admin: 03/14/20 13:04 Dose: 14 units Documented by: [id number] Cosigned by: [id number] Admin: 03/14/20 09:07 Dose: 6 units Documented by: [id number] Cosigned by: [id number] Insulin Human NPH (Insulin Human Nph) 0 units SC BIDM [facility]; Protocol Stop: 04/13/20 07:59 Last Admin: 03/14/20 17:55 Dose: 20 units Documented by: [id number] Cosigned by: [id number] Levothyroxine Sodium (Levothyroxine Sodium 75 Mcg Tablet) 75 mcg PO DAILYBB [facility] Stop: 04/13/20 06:29 Last Admin: 03/14/20 06:27 Dose: 75 mcg Documented by: [id number] Miconazole Nitrate (Miconazole Nitrate Powder 43 Gm) 1 appln EXT PRN PRN PRN Reason: Affected Skin Folds Stop: 04/13/20 18:25 Last Admin: 03/14/20 21:41 Dose: 1 appln Documented by: [id number] Multivitamins/Minerals (Cerovite Adv Formula Tab) 1 tab PO QAM [facility] Stop: 04/13/20 08:59 Last Admin: 03/14/20 09:00 Dose: 1 tab Documented by: [id number] Polyethylene Glycol (Polyethylene (Miralax) 17 Gm Pack) 17 gm PO BID [facility] Stop: 04/13/20 08:59 Last Admin: 03/14/20 21:39 Dose: 17 gm Documented by: [id number] Admin: 03/14/20 09:00 Dose: 17 gm Documented by: [id number] Torsemide (Torsemide 20 Mg Tab) 40 mg PO BID [facility] Stop: 04/13/20 08:59 Last Admin: 03/14/20 08:59 Dose: 40 mg Documented by: [id number] Tramadol HCl (Tramadol Hcl 50 Mg Tablet) 50 mg PO Q4H PRN PRN Reason: Pain Stop: 04/13/20 13:05 Last Admin: 03/14/20 13:49 Dose: 50 mg Documented by: [id number] Vitamin D (Cholecalciferol 1,000 Units 25 Mcg Tab) 2,000 units PO [id number]@[id number] [facility] Stop: 04/13/20 08:59 Last Admin: 03/14/20 09:01 Dose: 2,000 units Documented by: [id number] Discontinued Medications Sodium Chloride (Nss 1000ml) 1,000 mls @ 999 mls/hr IV .Q1H1M [facility] Stop: 03/13/20 23:45 Last Infusion: 03/14/20 00:10 Dose: 0 mls/hr Documented by: [id number] Admin: 03/13/20 23:10 Dose: 999 mls/hr Documented by: [id number] Acetaminophen (Ofirmev) 1,000 mg in 100 mls @ 400 mls/hr IV NOW STA Stop: 03/13/20 22:52 Last Infusion: 03/13/20 23:25 Dose: 0 mls/hr Documented by: [id number] Admin: 03/13/20 23:10 Dose: 400 mls/hr Documented by: [id number] Ceftriaxone Sodium (Rocephin) 2,000 mg in 70 mls @ 140 mls/hr IV NOW STA Stop: 03/14/20 01:50 Last Infusion: 03/14/20 02:36 Dose: 0 mls/hr Documented by: [id number] Admin: 03/14/20 02:03 Dose: 140 mls/hr Documented by: [id number] Insulin Human NPH (Insulin Human Nph) 15 units SC BIDM [facility]; Protocol Stop: 04/13/20 07:59 Last Admin: 03/14/20 09:04 Dose: 15 units Documented by: [id number] Cosigned by: [id number] Morphine Sulfate (Morphine Sulfate 2 Mg/Ml Carp) 2 mg IV Q1H PRN PRN Reason: Pain Stop: 03/27/20 23:45 Last Admin: 03/14/20 00:07 Dose: 2 mg Documented by: [id number] Morphine Sulfate (Morphine Sulfate 2 Mg/Ml Carp) 2 mg IV Q3H PRN PRN Reason: Pain (1,2,3,4,5) & Pre PT Stop: 03/28/20 05:02 Last Admin: 03/14/20 06:27 Dose: 2 mg Documented by: [id number] Pneumococcal Polyvalent Vaccine (Pneumococcal Polysaccharides 25 Mcg/0.5 Ml Vial/Syr) 25 mcg IM .ONCE ONE Stop: 03/14/20 06:06 Last Admin: 03/14/20 09:11 Dose: 25 mcg Documented by: [id number] Medical Decision Making Differential Diagnosis Differential diagnosis includes: Etiologies such as cellulitis, abscess, osteomyelitis, MRSA infection, DVT, necrotizing fasciitis, dermatitis, drug eruption, as well as others were entertained Laboratory Data Result diagrams: 03/13/20 23:14 03/13/20 23:38 Lab Results 03/13/20 03/13/20 03/13/20 Range/Units 23:14 23:14 23:38 WBC 9.94 (4.8-10.8) K/uL RBC 3.27 L (4.2-5.4) M/uL Hgb 10.1 L (12.0-16.0) g/dL Hct 31.2 L (37-47) % MCV 95.4 (80-100) fL MCH 30.9 (25-34) pg MCHC 32.4 (32-36) g/dL RDW Std Deviation 51.0 H (36.4-46.3) fL RDW Coeff of Brian 14.6 H (11.5-14.5) % Plt Count 171 (130-400) K/uL MPV 11.3 H (7.4-10.4) fL Immature Gran % (Auto) 0.2 % Neut % (Auto) 75.8 % Lymph % (Auto) 15.2 % Lynn % (Auto) 6.9 % Eos % (Auto) 1.7 % Baso % (Auto) 0.2 % Neut # (Auto) 7.53 H (1.4-6.5) K/uL Lymph # (Auto) 1.51 (1.2-3.4) K/uL Lynn # (Auto) 0.69 H (0.11-0.59) K/uL Eos # (Auto) 0.17 (0-0.5) K/uL Baso # (Auto) 0.02 (0-0.2) K/uL Immature Gran # (Auto) 0.02 (0.00-0.02) K/uL ESR 64 H (0-21) mm/hr PT (9.0-12.0) Seconds INR (0.9-1.1) APTT (21.0-31.0) Seconds PTT Ratio Sodium 139 (136-145) mmol/L Potassium 3.7 (3.5-5.1) mmol/L Chloride 104 (98-107) mmol/L Carbon Dioxide 31 (21-32) mmol/L Anion Gap 4.0 (3-11) BUN 34 H (7-18) mg/dl Creatinine 1.82 H (0.6-1.2) mg/dl Est Cr Clr Drug Dosing 27.2 ml/min Est GFR ( Amer) 29.3 Est GFR (Non-Af Amer) 25.2 BUN/Creatinine Ratio 18.6 (10-20) Glucose 65 L (70-99) mg/dl POC Glucose (70-99) mg/dl Lactate (0.4-2.0) mmol/L Calcium 8.9 (8.5-10.1) mg/dl Total Bilirubin 0.4 (0.2-1) mg/dl AST 16 (15-37) U/L ALT 13 (12-78) U/L Alkaline Phosphatase 68 (45-117) U/L C-Reactive Protein 9.83 H (0-0.29) mg/dl Total Protein 7.2 (6.4-8.2) gm/dl Albumin 3.0 L (3.4-5.0) gm/dl Globulin 4.2 H (2.5-4.0) gm/dl Albumin/Globulin Ratio 0.7 L (0.9-2) TSH 1.800 (0.300-4.500) uIu/ml Urine Color Urine Appearance (Clear) Urine pH (4.5-7.5) Ur Specific [place] (1.000-1.030) Urine Protein (Negative) Urine Glucose (UA) (Negative) Urine Ketones (Negative) Urine Blood (Negative) Urine Nitrite (Negative) Urine Bilirubin (Negative) Urine Urobilinogen (Negative) Ur Leukocyte Esterase (Negative) Urine WBC (Auto) (0-5) /hpf Urine RBC (Auto) (0-4) /hpf U Hyaline Cast (Auto) (0-5) /lpf U Epithel Cells (Auto) (0-5) /lpf Urine Bacteria (Auto) (Negative) Nasal Screen MRSA (PCR) (Negative) SARS-CoV-2 Ag (Rapid) (Negative) 03/13/20 03/13/20 03/14/20 Range/Units 23:38 23:38 01:09 WBC (4.8-10.8) K/uL RBC (4.2-5.4) M/uL Hgb (12.0-16.0) g/dL Hct (37-47) % MCV (80-100) fL MCH (25-34) pg MCHC (32-36) g/dL RDW Std Deviation (36.4-46.3) fL RDW Coeff of Brian (11.5-14.5) % Plt Count (130-400) K/uL MPV (7.4-10.4) fL Immature Gran % (Auto) % Neut % (Auto) % Lymph % (Auto) % Lynn % (Auto) % Eos % (Auto) % Baso % (Auto) % Neut # (Auto) (1.4-6.5) K/uL Lymph # (Auto) (1.2-3.4) K/uL Lynn # (Auto) (0.11-0.59) K/uL Eos # (Auto) (0-0.5) K/uL Baso # (Auto) (0-0.2) K/uL Immature Gran # (Auto) (0.00-0.02) K/uL ESR (0-21) mm/hr PT 12.4 H (9.0-12.0) Seconds INR 1.2 H (0.9-1.1) APTT 30.3 (21.0-31.0) Seconds PTT Ratio 1.1 Sodium (136-145) mmol/L Potassium (3.5-5.1) mmol/L Chloride (98-107) mmol/L Carbon Dioxide (21-32) mmol/L Anion Gap (3-11) BUN (7-18) mg/dl Creatinine (0.6-1.2) mg/dl Est Cr Clr Drug Dosing ml/min Est GFR ( Amer) Est GFR (Non-Af Amer) BUN/Creatinine Ratio (10-20) Glucose (70-99) mg/dl POC Glucose 73 (70-99) mg/dl Lactate 1.0 (0.4-2.0) mmol/L Calcium (8.5-10.1) mg/dl Total Bilirubin (0.2-1) mg/dl AST (15-37) U/L ALT (12-78) U/L Alkaline Phosphatase (45-117) U/L C-Reactive Protein (0-0.29) mg/dl Total Protein (6.4-8.2) gm/dl Albumin (3.4-5.0) gm/dl Globulin (2.5-4.0) gm/dl Albumin/Globulin Ratio (0.9-2) TSH (0.300-4.500) uIu/ml Urine Color Urine Appearance (Clear) Urine pH (4.5-7.5) Ur Specific [place] (1.000-1.030) Urine Protein (Negative) Urine Glucose (UA) (Negative) Urine Ketones (Negative) Urine Blood (Negative) Urine Nitrite (Negative) Urine Bilirubin (Negative) Urine Urobilinogen (Negative) Ur Leukocyte Esterase (Negative) Urine WBC (Auto) (0-5) /hpf Urine RBC (Auto) (0-4) /hpf U Hyaline Cast (Auto) (0-5) /lpf U Epithel Cells (Auto) (0-5) /lpf Urine Bacteria (Auto) (Negative) Nasal Screen MRSA (PCR) (Negative) SARS-CoV-2 Ag (Rapid) (Negative) 03/14/20 03/14/20 03/14/20 Range/Units 02:09 02:13 02:54 WBC (4.8-10.8) K/uL RBC (4.2-5.4) M/uL Hgb (12.0-16.0) g/dL Hct (37-47) % MCV (80-100) fL MCH (25-34) pg MCHC (32-36) g/dL RDW Std Deviation (36.4-46.3) fL RDW Coeff of Brian (11.5-14.5) % Plt Count (130-400) K/uL MPV (7.4-10.4) fL Immature Gran % (Auto) % Neut % (Auto) % Lymph % (Auto) % Lynn % (Auto) % Eos % (Auto) % Baso % (Auto) % Neut # (Auto) (1.4-6.5) K/uL Lymph # (Auto) (1.2-3.4) K/uL Lynn # (Auto) (0.11-0.59) K/uL Eos # (Auto) (0-0.5) K/uL Baso # (Auto) (0-0.2) K/uL Immature Gran # (Auto) (0.00-0.02) K/uL ESR (0-21) mm/hr PT (9.0-12.0) Seconds INR (0.9-1.1) APTT (21.0-31.0) Seconds PTT Ratio Sodium (136-145) mmol/L Potassium (3.5-5.1) mmol/L Chloride (98-107) mmol/L Carbon Dioxide (21-32) mmol/L Anion Gap (3-11) BUN (7-18) mg/dl Creatinine (0.6-1.2) mg/dl Est Cr Clr Drug Dosing ml/min Est GFR ( Amer) Est GFR (Non-Af Amer) BUN/Creatinine Ratio (10-20) Glucose (70-99) mg/dl POC Glucose 151 H (70-99) mg/dl Lactate (0.4-2.0) mmol/L Calcium (8.5-10.1) mg/dl Total Bilirubin (0.2-1) mg/dl AST (15-37) U/L ALT (12-78) U/L Alkaline Phosphatase (45-117) U/L C-Reactive Protein (0-0.29) mg/dl Total Protein (6.4-8.2) gm/dl Albumin (3.4-5.0) gm/dl Globulin (2.5-4.0) gm/dl Albumin/Globulin Ratio (0.9-2) TSH (0.300-4.500) uIu/ml Urine Color Yellow Urine Appearance Clear (Clear) Urine pH 7.0 (4.5-7.5) Ur Specific [place] 1.016 (1.000-1.030) Urine Protein Negative (Negative) Urine Glucose (UA) Negative (Negative) Urine Ketones Negative (Negative) Urine Blood Negative (Negative) Urine Nitrite Negative (Negative) Urine Bilirubin Negative (Negative) Urine Urobilinogen Negative (Negative) Ur Leukocyte Esterase 1+ H (Negative) Urine WBC (Auto) 1-5 (0-5) /hpf Urine RBC (Auto) 0-4 (0-4) /hpf U Hyaline Cast (Auto) 1-5 (0-5) /lpf U Epithel Cells (Auto) >30 H (0-5) /lpf Urine Bacteria (Auto) Negative (Negative) Nasal Screen MRSA (PCR) (Negative) SARS-CoV-2 Ag (Rapid) Negative (Negative) 03/14/20 Range/Units 02:54 WBC (4.8-10.8) K/uL RBC (4.2-5.4) M/uL Hgb (12.0-16.0) g/dL Hct (37-47) % MCV (80-100) fL MCH (25-34) pg MCHC (32-36) g/dL RDW Std Deviation (36.4-46.3) fL RDW Coeff of Brian (11.5-14.5) % Plt Count (130-400) K/uL MPV (7.4-10.4) fL Immature Gran % (Auto) % Neut % (Auto) % Lymph % (Auto) % Lynn % (Auto) % Eos % (Auto) % Baso % (Auto) % Neut # (Auto) (1.4-6.5) K/uL Lymph # (Auto) (1.2-3.4) K/uL Lynn # (Auto) (0.11-0.59) K/uL Eos # (Auto) (0-0.5) K/uL Baso # (Auto) (0-0.2) K/uL Immature Gran # (Auto) (0.00-0.02) K/uL ESR (0-21) mm/hr PT (9.0-12.0) Seconds INR (0.9-1.1) APTT (21.0-31.0) Seconds PTT Ratio Sodium (136-145) mmol/L Potassium (3.5-5.1) mmol/L Chloride (98-107) mmol/L Carbon Dioxide (21-32) mmol/L Anion Gap (3-11) BUN (7-18) mg/dl Creatinine (0.6-1.2) mg/dl Est Cr Clr Drug Dosing ml/min Est GFR ( Amer) Est GFR (Non-Af Amer) BUN/Creatinine Ratio (10-20) Glucose (70-99) mg/dl POC Glucose (70-99) mg/dl Lactate (0.4-2.0) mmol/L Calcium (8.5-10.1) mg/dl Total Bilirubin (0.2-1) mg/dl AST (15-37) U/L ALT (12-78) U/L Alkaline Phosphatase (45-117) U/L C-Reactive Protein (0-0.29) mg/dl Total Protein (6.4-8.2) gm/dl Albumin (3.4-5.0) gm/dl Globulin (2.5-4.0) gm/dl Albumin/Globulin Ratio (0.9-2) TSH (0.300-4.500) uIu/ml Urine Color Urine Appearance (Clear) Urine pH (4.5-7.5) Ur Specific [place] (1.000-1.030) Urine Protein (Negative) Urine Glucose (UA) (Negative) Urine Ketones (Negative) Urine Blood (Negative) Urine Nitrite (Negative) Urine Bilirubin (Negative) Urine Urobilinogen (Negative) Ur Leukocyte Esterase (Negative) Urine WBC (Auto) (0-5) /hpf Urine RBC (Auto) (0-4) /hpf U Hyaline Cast (Auto) (0-5) /lpf U Epithel Cells (Auto) (0-5) /lpf Urine Bacteria (Auto) (Negative) Nasal Screen MRSA (PCR) Negative (Negative) SARS-CoV-2 Ag (Rapid) (Negative) Imaging Data Radiologist's Impression: US venous doppler LE LT HISTORY: 84 years-old Female Left leg pain/swelling acute pain and swelling of the left lower extremity COMPARISON: CT abdomen and pelvis 03/27/2019 TECHNIQUE: Multiple real-time sonographic images of the left lower extremity deep venous structures were obtained assessing grayscale appearance, color and spectral flow FINDINGS: Normal flow, compressibility, phasicity and augmentation of the left lower extremity deep venous structures. Prominent lymph node with a thin cortex and central fatty hilum is likely physiologic measuring 4.3 x 0.9 x 2.3 cm. There is an adjacent hypoechoic structure which measures 1.3 x 0.5 x 1.0 cm, possibly reflective of an additional lymph node. In retrospect, these nodes appear unchanged from the comparison CT exam and favor a reactive process. IMPRESSION: No sonographic evidence of deep venous thrombosis. MDM Narrative Physical exam and history were performed. Nursing notes, EMR, and Medication List were personally reviewed. Patient appears to have left leg pain bringing her to the emergency department. Upon arrival she is with low-grade fever. Her exam does show a very red, warm, and edematous left lower extremity where she is having her discomfort. The pain does seem to be traveling proximal. IV access was established and labs were obtained. The patient was hydrated with normal saline. Blood cultures and lactic were gathered. She was sent to ultrasound for further evaluation. The patient's blood work is as above and was reviewed. She does not have a significantly elevated white blood cell count. She is mildly anemic but this does appear chronic. INR is 1.2. Creatinine is 1.82. Glucose was slightly low at 65 and we did give her juice, which did rapidly improve her glucose. Lactic is normal at 1.0. Transaminases are not diagnostic. Ultrasound was reviewed by myself and radiology showing no acute DVT, however she does have some prominent lymph nodes which may be from cellulitis. Her inflammatory markers are both elevated. Overall the patient does not appear well for discharge home. She has a fairly large cellulitis and this is causing her pain and difficulty with ambulation. The patient was treated here in the ER with IV Rocephin and IV Tylenol. The matt e was discussed with both my attending and the on-call hospitalist team. Please see the hospitalist team dictation for further patient course, plan, and disposition. The chart was completed utilizing [employer] Speech Voice Recognition Software. Grammatical errors, random word insertions, pronoun errors, and incomplete sentences are an occasional consequence of this system due to software limitati ons, ambient noise, and hardware issues. Any formal questions or concerns about the content, text, or information contained within the body of this dictation should be directly addressed to the provider for clarification. . Impression & Plan Cellulitis of left leg, Diabetes mellitus, Chronic venous insufficiency, Fever Discharge Plan Visit Data Chief Complaint: Infection Stated Complaint: LEFT KNEE PAIN ED Provider: Narinder Guzmán ED Midlevel Provider: Rowdy Szymanski Discharge Problem: Cellulitis of left leg, Diabetes mellitus, Chronic venous insufficiency, Fever Patient Disposition: Admitted As Inpatient Discharge Instructions Interventions: ED Discharge Assessment Last Done: 03/14/20 04:00
[2020-03-14 03:04] LABS: Appearance Urine Clear (Clear); Bacteria Urine Automated Negative (Negative); Bilirubin Urine Negative (Negative); Blood Urine Negative (Negative); Color Urine Yellow; Epithelial Cell Urine Auto >30 /lpf (0-5); Glucose Urine UA Negative (Negative); Ketones Urine Negative (Negative); Leukocyte Esterase Urine 1+ (Negative); Nitrite Urine Negative (Negative); Protein Urine Negative (Negative); RBC Urine Automated 0-4 /hpf (0-4); Specific Gravity Urine 1.016 (1.000-1.030); Urobilinogen Urine Negative (Negative)
--- NOTE | 2020-03-14 03:04 | History & Physical Report ---
Date of Service March 14, 2020 Assessment & Plan (1) Cellulitis: Patient is an 84-year-old female with a past medical history of atrial fibrillation, history of breast cancer, chronic venous insufficiency with chronic venous insufficiency ulcers, and bilateral generalized edema, hyperlipid emia, hypothyroidism, peripheral neuropathy, retinal detachment, anemia, chronic kidney disease stage III, diabetes mellitus, hypertension, who presents this evening with bilateral lower extremity pain left worse than right that started earlier today. #Cellulitis secondary to chronic venous stasis ulcers in the setting of chronic venous insufficiency Per the patient she has a longstanding history of chronic venous insufficiency with chronic venous stasis ulcers. These are not followed by wound care. Occasionally they weep. Upon examination there are scabs and wounds. Patient states that she has had cellulitis in her bilateral lower extremities in the past before. Patient does not think she has ever had MRSA, most recent MRSA swab was in September 2018, will be repeating this today. The patient will be admitted for antibiotic therapy, and monitoring as she recovers from her brief cellulitis. Most recent echo in September 2018 demonstrated a left ventricular ejection fraction of 60 to 65% with normal RVSP. Indicating the lower extremity swelling is most likely from venous insufficiency -Ceftriaxone for now can escalate antibiotic therapy pending results of MRSA swab -Follow-up blood cultures -Consult wound care -Pain control with morphine -Monitor for worsening of infection -will need close follow-up on discharge #Chronic kidney disease stage III Patient follows with Dr. Bhatt for chronic kidney disease. Baseline creatinine appears to be 1.5-1.7. -Monitor hydration status -Monitor urine output -Avoid nephrotoxic meds -Trend daily BMP #Atrial fibrillation Patient had 1 episode of documented atrial fibrillation during an admission in 2018, she was very acutely ill at that time. She spontaneously converted with 1 dose of IV Lopressor and has had no further events after that. She was on metoprolol 25 mg daily and was not started on anticoagulation and maintain normal sinus rhythm. Subsequently Toprol was stopped and she has since had no episodes of atrial fibrillation. -Monitor for development of A. fib -Consider anticoagulation #Diabetes mellitus Holding home meds -Glycemic consult placed #Peripheral neuropathy -PT OT ordered -Fall precautions -Continue home gabapentin #Hypertension -Continue home torsemide 20 mg #Hypothyroidism -Continue levothyroxine 75 mcg p.o. every morning #Hyperlipidemia -Continue gemfibrozil -Patient could probably benefit from a statin, will defer to primary team #Osteoarthritis -PT OT -Pain control as above FENa: Heart healthy carb conscious diet Code Status: Full DVT PPX: Heparin PT/OT: Ordered Dispo: Jian Garcia MD PGY 2, FCM This chart was completed utilizing [employer] voice recognition software. Grammatical errors, random word insertions, pronoun errors, and in complete sentences are an occasional consequence of the system. Any questions or concerns about the content, text, or information contained within the body of this dictation should be addressed directly to the physician for clarification. (2) Chronic venous insufficiency: (3) Diabetes mellitus: (4) Chronic kidney disease, stage 3: (5) Hypertension: (6) Peripheral neuropathy: (7) Hypothyroidism: (8) Hyperlipidemia: (9) Generalized osteoarthritis of multiple sites: (10) Edema: (11) Afib: History of Present Illness Patient is an 84-year-old female with a past medical history of atrial fibrillation, history of breast cancer, chronic venous insufficiency with chronic venous insufficiency ulcers, and bilateral generalized edema, hyperlipidemia, hypothyroidism, peripheral neuropathy, retinal detachment, anemia, chronic kidney disease stage III, diabetes mellitus, hypertension, who presents this evening with bilateral lower extremity pain left worse than right that started earlier today. Patient reports a longstanding history of chronic venous insufficiency, with repeated bouts of cellulitis in her bilateral lower extremities. She reports that currently she feels as she has in the past when she has cellulitis. She states that she was in her normal state of health prior to today, eating, sleeping, voiding, stooling appropriately. She denies any constitutional symptoms including fever, chills, nausea, vomiting, chest pressure, chest pain, shortness of breath, abdominal pain, and weight loss. She reports approximately noon time today she began experiencing pain in the bilateral lower extremities left greater than right with some increased weeping. Nothing made the pain better, movement made the pain worse, this continued to increase throughout the day, eventually prompting her to present to the emergency department as she was concerned she had cellulitis. In the emergency department initially she was found to have a fever which subsequently resolved, given her presentation imaging was obtained bilateral lower extremity Doppler ultrasound was negative for DVT however demonstrated reactive lymph nodes. CBC was within normal limits, there was not a white count, however there was a neutrophil predominance, ESR was 64, INR 1.2, PT 12.4, Chem-7 demonstrated a creatinine of 1.82 and hypoglycemia with a glucose of 65 this was subsequently corrected to 151 otherwise within normal limits. CRP was 9.83, lactate was negative, COVID-19 negative, and a UA is pending. Of note the patient does not have a history of MRSA however does have a history of MSSA, Most recent negative screen was September 2018. Currently she describes her pain is 10 out of 10. given her initial presentation of a fever, tachycardia, multiple medical comorbidities, and concerning cellulitis the primary team was called for admission. Primary Care Provider: Narinder Caldwell MD Allergies Allergy/AdvReac Type Severity Reaction Status Date / Time Sulfa (Sulfonamide Allergy Intermediate BLISTERS Verified 03/13/20 23:56 Antibiotics) Home Medications Medication Instructions Recorded Confirmed Type aspirin 81 mg tablet,delayed 81 mg PO QAM 11/09/18 03/13/20 History release cholecalciferol (vitamin D3) 50 2,000 unit PO 3XWK 11/09/18 03/13/20 History mcg (2,000 unit) capsule multivitamin,tx-minerals 1 cap PO QAM 11/09/18 03/13/20 History omega 9-sed-zve-fish oil 1,000 mg 1 cap PO QAM cap 11/09/18 03/13/20 History (120 mg-180 mg) capsule ascorbic acid (vitamin C) [Vitamin 500 mg PO DAILY 11/18/18 03/13/20 History C] levothyroxine 75 mcg PO QAM 05/20/19 03/13/20 History gabapentin 100 mg capsule 200 mg PO HS #180 cap 06/01/19 03/13/20 Rx insulin human U-100 NPH-regulr See Rx Instructions SQ BID ml 01/18/20 03/13/20 History 70-30 mix 100 unit/mL subcutaneous susp gemfibrozil 600 mg tablet 600 mg PO QAM #30 tab 02/01/20 03/13/20 Rx torsemide 20 mg tablet 40 mg PO BID #360 tab 02/24/20 03/13/20 Rx Past Med/Surg History Medical History Acute kidney injury (11/2018) Afib Anemia Cancer RIGHT BREAST CANCER Cellulitis of right leg Chronic back pain Chronic kidney disease, stage 3 Congenital dislocation of hip Degenerative disc disease Diabetes mellitus IDDM DNR (do not resuscitate) Hypertension Obesity Osteoarthritis Pancreatitis SEPTEMBER 2018 Peripheral neuropathy BILATERAL FEET Pressure ulcer of right heel, stage 3 Stage III pressure ulcer of right buttock Surgical History History of cataract surgery BILATERAL History of cholecystectomy History of detached retina repair LEFT History of hip surgery LEFT HIP DISLOCATION SURGERY A CHILD (UNSUCCESSFUL) History of mastectomy RIGHT BREAST WITH 1 LYMPH NODE REMOVAL History of thyroidectomy REMOVAL OF GOITER Hx of tonsillectomy Status post debridement hip open wound Family History Unknown Cancer Father Bone cancer Mother Diabetes Daughter Diabetes Breast cancer Son Diabetes Sister Diabetes Grandmother (Paternal) Breast cancer Denies family history of Ovarian cancer Prostate cancer Myocardial infarction Colorectal cancer Social History Smoking Status: Never smoker Second Hand Exposure: No; Hx Alcohol Use: No Hx Substance Use: No Preferred Language: Greek Communication Ability: Effective Visual Impairment: No Limitations Assistant Public Defender Required: No Beliefs That Will Affect Care: None marital status: Current Living Situation: Spouse Other Information That Helps Us Care for You: No Feels Safe at Home: Yes Safety Concerns: Feels Safe At This Time Seatbelt Use: always Assistive Devices: Walker Review of Systems Review of Systems: All systems reviewed & are unremarkable except as noted in HPI & below Physical Exam Physical Exam: General: Obese female lying in bed in no acute distress HEENT: Normocephalic atraumatic Neck: Normal to visual inspection, trachea midline Cardiac: Regular rate and rhythm, I did not appreciate any significant murmurs rubs or gallops, normal S1, normal S2, significant bilateral 4+ pedal edema, Respiratory: Clear to auscultation bilaterally with symmetrical chest expansion, no wheezes, no rales, no rhonchi, no increased work of breathing GI: Distended, soft, nontender in all 4 quadrants, bowel sounds present MSK: Moves all extremities Skin: Bilateral lower extremities covered in venous stasis ulcers Neuro: Alert and oriented x4 Psych: Calm and cooperative with the interview Results & Data Results & Data ([facility]) Vital Signs (Past 12 Hours) Vital Signs Temp Pulse Pulse Resp BP BP Pulse Ox 03/14/20 02:00 100 H 18 129/51 L 93 03/14/20 00:55 36.8 C 96 H 18 121/46 L 93 03/13/20 22:31 37.8 C H 99 H 18 133/77 95 Laboratory Results 03/14/20 03/14/20 03/14/20 Range/Units 02:13 02:09 01:09 WBC (4.8-10.8) K/uL RBC (4.2-5.4) M/uL Hgb (12.0-16.0) g/dL Hct (37-47) % MCV (80-100) fL MCH (25-34) pg MCHC (32-36) g/dL RDW Std Deviation (36.4-46.3) fL RDW Coeff of Brian (11.5-14.5) % Plt Count (130-400) K/uL MPV (7.4-10.4) fL Immature Gran % (Auto) % Neut % (Auto) % Lymph % (Auto) % [place] % (Auto) % Eos % (Auto) % Baso % (Auto) % Neut # (Auto) (1.4-6.5) K/uL Lymph # (Auto) (1.2-3.4) K/uL [place] # (Auto) (0.11-0.59) K/uL Eos # (Auto) (0-0.5) K/uL Baso # (Auto) (0-0.2) K/uL Immature Gran # (Auto) (0.00-0.02) K/uL ESR (0-21) mm/hr PT (9.0-12.0) Seconds INR (0.9-1.1) APTT (21.0-31.0) Seconds PTT Ratio Sodium (136-145) mmol/L Potassium (3.5-5.1) mmol/L Chloride (98-107) mmol/L Carbon Dioxide (21-32) mmol/L Anion Gap (3-11) BUN (7-18) mg/dl Creatinine (0.6-1.2) mg/dl Est Cr Clr Drug Dosing ml/min Est GFR ( Amer) Est GFR (Non-Af Amer) BUN/Creatinine Ratio (10-20) Glucose (70-99) mg/dl POC Glucose 151 H 73 (70-99) mg/dl Lactate (0.4-2.0) mmol/L Calcium (8.5-10.1) mg/dl Total Bilirubin (0.2-1) mg/dl AST (15-37) U/L ALT (12-78) U/L Alkaline Phosphatase (45-117) U/L C-Reactive Protein (0-0.29) mg/dl Total Protein (6.4-8.2) gm/dl Albumin (3.4-5.0) gm/dl Globulin (2.5-4.0) gm/dl Albumin/Globulin Ratio (0.9-2) TSH (0.300-4.500) uIu/ml SARS-CoV-2 Ag (Rapid) Negative (Negative) 03/13/20 03/13/20 03/13/20 Range/Units 23:38 23:38 23:38 WBC (4.8-10.8) K/uL RBC (4.2-5.4) M/uL Hgb (12.0-16.0) g/dL Hct (37-47) % MCV (80-100) fL MCH (25-34) pg MCHC (32-36) g/dL RDW Std Deviation (36.4-46.3) fL RDW Coeff of Brian (11.5-14.5) % Plt Count (130-400) K/uL MPV (7.4-10.4) fL Immature Gran % (Auto) % Neut % (Auto) % Lymph % (Auto) % [place] % (Auto) % Eos % (Auto) % Baso % (Auto) % Neut # (Auto) (1.4-6.5) K/uL Lymph # (Auto) (1.2-3.4) K/uL [place] # (Auto) (0.11-0.59) K/uL Eos # (Auto) (0-0.5) K/uL Baso # (Auto) (0-0.2) K/uL Immature Gran # (Auto) (0.00-0.02) K/uL ESR (0-21) mm/hr PT 12.4 H (9.0-12.0) Seconds INR 1.2 H (0.9-1.1) APTT 30.3 (21.0-31.0) Seconds PTT Ratio 1.1 Sodium 139 (136-145) mmol/L Potassium 3.7 (3.5-5.1) mmol/L Chloride 104 (98-107) mmol/L Carbon Dioxide 31 (21-32) mmol/L Anion Gap 4.0 (3-11) BUN 34 H (7-18) mg/dl Creatinine 1.82 H (0.6-1.2) mg/dl Est Cr Clr Drug Dosing 27.2 ml/min Est GFR ( Amer) 29.3 Est GFR (Non-Af Amer) 25.2 BUN/Creatinine Ratio 18.6 (10-20) Glucose 65 L (70-99) mg/dl POC Glucose (70-99) mg/dl Lactate 1.0 (0.4-2.0) mmol/L Calcium 8.9 (8.5-10.1) mg/dl Total Bilirubin 0.4 (0.2-1) mg/dl AST 16 (15-37) U/L ALT 13 (12-78) U/L Alkaline Phosphatase 68 (45-117) U/L C-Reactive Protein 9.83 H (0-0.29) mg/dl Total Protein 7.2 (6.4-8.2) gm/dl Albumin 3.0 L (3.4-5.0) gm/dl Globulin 4.2 H (2.5-4.0) gm/dl Albumin/Globulin Ratio 0.7 L (0.9-2) TSH 1.800 (0.300-4.500) uIu/ml SARS-CoV-2 Ag (Rapid) (Negative) 03/13/20 03/13/20 Range/Units 23:14 23:14 WBC 9.94 (4.8-10.8) K/uL RBC 3.27 L (4.2-5.4) M/uL Hgb 10.1 L (12.0-16.0) g/dL Hct 31.2 L (37-47) % MCV 95.4 (80-100) fL MCH 30.9 (25-34) pg MCHC 32.4 (32-36) g/dL RDW Std Deviation 51.0 H (36.4-46.3) fL RDW Coeff of Brian 14.6 H (11.5-14.5) % Plt Count 171 (130-400) K/uL MPV 11.3 H (7.4-10.4) fL Immature Gran % (Auto) 0.2 % Neut % (Auto) 75.8 % Lymph % (Auto) 15.2 % [place] % (Auto) 6.9 % Eos % (Auto) 1.7 % Baso % (Auto) 0.2 % Neut # (Auto) 7.53 H (1.4-6.5) K/uL Lymph # (Auto) 1.51 (1.2-3.4) K/uL [place] # (Auto) 0.69 H (0.11-0.59) K/uL Eos # (Auto) 0.17 (0-0.5) K/uL Baso # (Auto) 0.02 (0-0.2) K/uL Immature Gran # (Auto) 0.02 (0.00-0.02) K/uL ESR 64 H (0-21) mm/hr PT (9.0-12.0) Seconds INR (0.9-1.1) APTT (21.0-31.0) Seconds PTT Ratio Sodium (136-145) mmol/L Potassium (3.5-5.1) mmol/L Chloride (98-107) mmol/L Carbon Dioxide (21-32) mmol/L Anion Gap (3-11) BUN (7-18) mg/dl Creatinine (0.6-1.2) mg/dl Est Cr Clr Drug Dosing ml/min Est GFR ( Amer) Est GFR (Non-Af Amer) BUN/Creatinine Ratio (10-20) Glucose (70-99) mg/dl POC Glucose (70-99) mg/dl Lactate (0.4-2.0) mmol/L Calcium (8.5-10.1) mg/dl Total Bilirubin (0.2-1) mg/dl AST (15-37) U/L ALT (12-78) U/L Alkaline Phosphatase (45-117) U/L C-Reactive Protein (0-0.29) mg/dl Total Protein (6.4-8.2) gm/dl Albumin (3.4-5.0) gm/dl Globulin (2.5-4.0) gm/dl Albumin/Globulin Ratio (0.9-2) TSH (0.300-4.500) uIu/ml SARS-CoV-2 Ag (Rapid) (Negative) Medications Administered Current Inpatient Medications Morphine Sulfate (Morphine Sulfate 2 Mg/Ml Carp) 2 mg IV Q1H PRN PRN Reason: Pain Stop: 03/27/20 23:45 Last Admin: 03/14/20 00:07 Dose: 2 mg Documented by: Code Status & VTE Plan Code Status full VTE Prophylaxis Plan VTE Prophylaxis will be ordered: Yes Supervising Physician Co-Signing Physician Notes Attending addendum: I have physically seen this patient, have supervised the medical residents activities, and agree with the H&P unless as otherwise noted. Assessment and Plan: Left lower extremity cellulitis/chronic venous insufficiency- Received ceftriaxone 2 g IV in ED, and will continue daily. We will add daptomycin IV in lieu of vancomycin IV due to kidney disease. Follow wound cultures. Consult wound care nurse. Venous Dopplers negative for DVT left lower extremity. Allergic to sulfas/Bactrim Remaining orders and notations as noted Resident Activity Tracking Resident Involvement: Resident Care Provided Care Provided: Adult Hospital Medicine (1) Diabetes mellitus Diabetes mellitus complication status: without complication Diabetes mellitus intermediate insulin use: with intermediate use Diabetes mellitus type: type 2 Qualified Code(s): E11.9 - Type 2 diabetes mellitus without complications; Z79.4 - terminal press operator (current) use of insulin (2) Afib Atrial fibrillation type: unspecified Qualified Code(s): I48.91 - Unspecified atrial fibrillation (3) Hypertension Hypertension type: essential hypertension Qualified Code(s): I10 - Essential (primary) hypertension
[2020-03-14] MEDS ORDERED: MELATONIN 3 MG TAB PO PRN (05:03)
[2020-03-14] MEDS ORDERED: ALUMINUM/MAGNESIUM SUSP 30 ML UDC PO PRN (05:03)
[2020-03-14] MEDS ORDERED: MoRPHine SULFATE 4 MG/ML 1 ML CARP\\VIAL IV PRN (05:03)
[2020-03-14] MEDS ORDERED: ONDANSETRON INJ 2 MG/ML 2 ML VIAL IV PRN (05:03)
[2020-03-14] MEDS ORDERED: MoRPHine SULFATE 2 MG/ML CARP IV PRN (05:03)
[2020-03-14] MEDS ORDERED: MAGNESIUM HYDROXIDE SUSP 30 ML UDC PO PRN (05:03)
[2020-03-14] MEDS ORDERED: PNEUMOCOCCAL POLYSACCHARIDES 25 MCG/0.5 ML VIAL/SYR IM ONE (06:05)
[2020-03-14] MEDS ORDERED: PHARMACY GLYCEMIC MGMT CONSULT PRN (06:05)
[2020-03-14] MEDS ORDERED: PNEUMOCOCCAL ADMINISTRATION CHARGE ONE (06:05)
[2020-03-14] MEDS: LEVOTHYROXINE SODIUM 75 MCG TABLET PO SCH (06:27)
[2020-03-14] MEDS ORDERED: GLUCAGON FOR INJ 1 MG VIAL IM PRN (06:30)
[2020-03-14] MEDS ORDERED: GLUCOSE 40% GEL 15 GM TUBE PO PRN (06:30)
[2020-03-14] MEDS ORDERED: GLUCOSE 10 TABS/TUBE PO PRN (06:30)
[2020-03-14] MEDS ORDERED: DEXTROSE 50% 50 ML SYRINGE IV PRN (06:30)
--- NOTE | 2020-03-14 07:06 | Ultrasound Report ---
US venous doppler LE LT HISTORY: 84 years-old Female Left leg pain/swelling acute pain and swelling of the left lower extrem ity COMPARISON: CT abdomen and pelvis 03/27/2019 TECHNIQUE: Multiple real-time sonographic images of the left lower extremity deep venous structures w ere obtained assessing grayscale appearance, color and spectral flow FINDINGS: Normal flow, compressibility, phasicity and augmentation of the left lower extremity deep venous stru ctures. Prominent lymph node with a thin cortex and central fatty hilum is likely physiologic measuri ng 4.3 x 0.9 x 2.3 cm. There is an adjacent hypoechoic structure which measures 1.3 x 0.5 x 1.0 cm, p ossibly reflective of an additional lymph node. In retrospect, these nodes appear unchanged from the comparison CT exam and favor a reactive process. IMPRESSION: No sonographic evidence of deep venous thrombosis. ACT 112: Negative or not required by law. The above report was generated using voice recognition software. It may contain grammatical, syntax o r spelling errors. Electronically signed by: Roland Starr M.D. 03/14/2020 7:05 AM
[2020-03-14] MEDS ORDERED: INSULIN HUMAN NPH SC SCH ×2 (08:00→17:00)
[2020-03-14] MEDS: ASPIRIN 81 MG ECTAB PO SCH (08:59)
[2020-03-14] MEDS: TORSEMIDE 20 MG TAB PO SCH ×2 (08:59→22:00)
[2020-03-14] MEDS: CEROVITE ADV FORMULA TAB PO SCH (09:00)
[2020-03-14] MEDS: POLYETHYLENE (MIRALAX) 17 GM PACK PO SCH ×2 (09:00→21:39)
[2020-03-14] MEDS: gemfibroziL 600 MG TAB PO SCH (09:00)
[2020-03-14] MEDS: ASCORBIC ACID 500 MG TAB PO SCH (09:01)
[2020-03-14] MEDS: OMEGA-3 (PURIFIED FISH OIL) 1 GM CAP PO SCH (09:01)
[2020-03-14] MEDS: CHOLECALCIFEROL 1,000 UNITS 25 MCG TAB PO SCH (09:01)
[2020-03-14] MEDS: INSULIN ASPART 100 UNITS/ML 3 ML PEN SC SCH ×4 (09:07→21:42)
[2020-03-14] MEDS: HEPARIN SOD 5,000 UNIT/0.5 ML VIAL SQ SCH ×3 (09:09→21:39)
--- NOTE | 2020-03-14 13:06 | Pharmacy Report ---
Pharmacy Glycemic Short Note 2 - Date of Service March 14, 2020 - Glycemic Short BSG Results (Last 24 hours): 03/13/20 03/14/20 03/14/20 23:38 01:09 02:09 Glucose 65 L POC Glucose 73 151 H 03/14/20 03/14/20 08:26 12:11 Glucose POC Glucose 186 H 216 H OUTPATIENT ANTIDIABETIC REGIMEN: * 70/30 60 units BID * A1c 6.6% 10/22/19 ASSESSMENT: * Pt is a 84 yo female admitted with cellulitis * BSG initially low on admission up to 186 mg/dL this morning. Patient utilized 70/30 insulin 60 units BID. Initial parameters will be based on patients total outpatient dose as well as weight based dosing. PLAN FOR INPATIENT GLYCEMIC CONTROL: * Basal insulin * NPH 15 units SQ BID * Bolus insulin * NovoLog per scale ACHS or Q6hrs while NPO * Goal Range: Low 120 mg/dL - High 160 mg/dL * Correction Factor: 20 mg/dL/unit * Nutritional / Prandial insulin per carb ratio of 1 unit per 7 grams CHO consumed PLAN FOR DISCHARGE: * tbd
--- NOTE | 2020-03-14 13:10 | Hospitalist Progress Note ---
Date of Service March 14, 2020 Assessment & Plan (1) Cellulitis: Cellulitis secondary to chronic venous stasis ulcers in the setting of chronic venous insufficiency Per the patient she has a longstanding history of chronic venous insufficiency with chronic venous stasis ulcers. Most recent echo in September 2018 demonstrated a left ventricular ejection fraction of 60 to 65% with normal RVSP. Indicating the lower extremity swelling is most likely from venous insufficiency -Continue Ceftriaxone - MRSA nares was negative however patient has a history of MRSA in a buttock wound in June so will initiate daptomycin -Follow-up blood cultures - Sed rate was 64, C-reactive 9.83 -Consult wound care -Tramadol for pain management - No DVT on ultrasound (2) Diabetes mellitus: Holding home meds -Glycemic consult placed (3) Chronic kidney disease, stage 3: Patient follows with Dr. Bhatt for chronic kidney disease. Baseline creatinine appears to be 1.5-1.7. -Monitor hydration status -Monitor urine output -Avoid nephrotoxic meds - Creat today 1.82 - repeat am (4) Hypertension: -Continue home torsemide 20 mg (5) Peripheral neuropathy: -PT OT ordered -Fall precautions -Continue home gabapentin (6) Hypothyroidism: -Continue levothyroxine 75 mcg p.o. every morning (7) Hyperlipidemia: -Continue gemfibrozil (8) Generalized osteoarthritis of multiple sites: -PT OT -Pain control (9) Edema: -Continue home torsemide 20 mg (10) Afib: Patient had 1 episode of documented atrial fibrillation during an admission in 2018, she was very acutely ill at that time. She spontaneously converted with 1 dose of IV Lopressor and has had no further events after that. She was on metoprolol 25 mg daily and was not started on anticoagulation and maintain normal sinus rhythm. Subsequently Toprol was stopped and she has since had no episodes of atrial fibrillation. -Monitor for development of A. fib (11) DVT prophylaxis: heaprin subq Admission and Anticipated Discharge Date Admission Date: March 14, 2020 Subjective Ms. Mike continues to have some pain in her legs but it is tolerable. They continue to be reddened. She otherwise has no complaints Review of Systems Constitutional: as per Subjective / HPI Respiratory: no cough and no dyspnea Cardiovascular: no chest pain and no palpitations Gastrointestinal: no abdominal pain, no nausea and no vomiting Genitourinary: no dysuria and no urinary hesitancy Musculoskeletal: + joint pain (bilateral knee pain); no back pain Integumentary: as per Subjective / HPI Physical Exam Physical Exam: General: no distress Eyes: normal inspection, PERLL Respiratory: chest non tender, clear to auscultation, normal breath sounds, no respiratory distress, no accessory muscle use Cardiac: regular rate and rhythm, no rub or gallop, no murmur, no edema, no jvd GI/: active bowel sounds, no abd pain or tenderness, soft, non distended Extremities: normal range of motion, normal strength, non tender Neuro/Psych: alert and oriented x 3, normal mood and affect Skin: normal color, dry Results & Data Results & Data ([facility]) Vital Signs (Past 12 Hours) Vital Signs Temp Pulse Pulse Pulse Resp BP BP 03/14/20 07:21 36.7 C 93 H 18 129/76 03/14/20 05:15 36.9 C 90 14 136/60 03/14/20 04:00 90 18 169/94 H 03/14/20 02:31 10 L 19 130/50 L 03/14/20 02:00 100 H 18 129/51 L 03/14/20 00:55 36.8 C 96 H 18 121/46 L Pulse Ox 03/14/20 07:21 95 03/14/20 05:15 95 03/14/20 04:00 94 03/14/20 02:31 94 03/14/20 02:00 93 03/14/20 00:55 93 PG Care Time/CCT Total # of Minutes Spent Total Time Spent with Patient: Total time spent is greater than 50% in coordination of care (as documented) at patient's floor/unit and/or counseling patient: Coding Level of Care Code 61130 Subseq Hosp Care Lvl 3 Diagnoses Cellulitis L03.90 Diabetes mellitus E11.9; Z79.4 Diabetes mellitus type: type 2 Diabetes mellitus intermediate insulin use: with intermediate use Diabetes mellitus complication status: without complication Chronic kidney disease, stage 3 N18.3 Hypertension I10 Hypertension type: essential hypertension Peripheral neuropathy G62.9 Hypothyroidism E03.9 Hyperlipidemia E78.5 Generalized osteoarthritis of multiple sites M15.9 Edema R60.9 Afib I48.91 Atrial fibrillation type: unspecified DVT prophylaxis Z29.9 (1) Diabetes mellitus Diabetes mellitus type: type 2 Diabetes mellitus supervisor intermediates insulin use: with supervisor intermediates use Diabetes mellitus complication status: without complication Qualified Code(s): E11.9 - Type 2 diabetes mellitus without complications; Z79.4 - manager long term care (current) use of insulin (2) Hypertension Hypertension type: essential hypertension Qualified Code(s): I10 - Essential (primary) hypertension (3) Afib Atrial fibrillation type: unspecified Qualified Code(s): I48.91 - Unspecified atrial fibrillation
[2020-03-14] MEDS: traMADol HCL 50 MG TABLET PO PRN (13:49)
[2020-03-14] MEDS: DAPTOmycin 300 MG in SYRINGE 0 ML IV SCH (13:56)
--- NOTE | 2020-03-14 20:04 | Billing Data ---
Date of Service March 14, 2020 Coding Level of Care Code 42445 Initial Inpt Care Lvl 2
[2020-03-14] MEDS: GABAPENTIN 100 MG CAP PO SCH (21:38)
[2020-03-14] MEDS: MICONAZOLE NITRATE POWDER 43 GM EXT PRN (21:41)
[2020-03-14] MEDS: ACETAMINOPHEN 325 MG TAB PO PRN (23:58)
[2020-03-15] MEDS: INSULIN ASPART 100 UNITS/ML 3 ML PEN SC SCH ×6 (00:04→22:03)
[2020-03-15 06:02] LABS: Basophils # (auto) 0.03 K/uL (0-0.2); Basophils % (auto) 0.3 %; Eosinophils # (auto) 0.09 K/uL (0-0.5); Eosinophils % (auto) 0.9 %; Hemoglobin 9.5 g/dL (12.0-16.0); Immature Granulocytes # (auto) 0.03 K/uL (0.00-0.02); Immature Granulocytes % (auto) 0.3 %; Lymphocytes # (auto) 1.69 K/uL (1.2-3.4); Lymphocytes % (auto) 17.1 %; Mean Corpuscular Hemoglobin 30.3 pg (25-34); Mean Corpuscular Hgb Conc 31.7 g/dL (32-36); Mean Corpuscular Volume 95.5 fL (80-100); Mean Platelet Volume 10.9 fL (7.4-10.4); Monocytes # (auto) 0.92 K/uL (0.11-0.59); Monocytes % (auto) 9.3 %; Neutrophils # (auto) 7.13 K/uL (1.4-6.5); Neutrophils % (auto) 72.1 %; Platelet Count 165 K/uL (130-400); RDW Coefficient of Variation 15.3 % (11.5-14.5); Red Blood Count 3.14 M/uL (4.2-5.4); White Blood Count 9.89 K/uL (4.8-10.8)
[2020-03-15 06:10] LABS: Estimated Average Glucose 148 mg/dl; Hemoglobin A1C 6.8 % (4.5-5.6)
[2020-03-15] MEDS: HEPARIN SOD 5,000 UNIT/0.5 ML VIAL SQ SCH ×2 (06:16→14:11)
[2020-03-15] MEDS: traMADol HCL 50 MG TABLET PO PRN (06:29)
[2020-03-15] MEDS: LEVOTHYROXINE SODIUM 75 MCG TABLET PO SCH (06:30)
[2020-03-15 06:31] LABS: Albumin Level 2.4 gm/dl (3.4-5.0); BUN Creatinine Ratio 17.3 (10-20); Calcium 8.8 mg/dl (8.5-10.1); Creatinine Clr Calc Pharmacy 25.9 ml/min; Est GFR (African American) 27.9; Est GFR (Non-African American) 24.1; Potassium 4.1 mmol/L (3.5-5.1)
[2020-03-15 06:44] LABS: Albumin Globulin Ratio 0.5 (0.9-2); Bilirubin,Total 0.6 mg/dl (0.2-1); C Reactive Protein 27.6 mg/dl (0-0.29); Globulin 4.4 gm/dl (2.5-4.0); Total Protein 6.8 gm/dl (6.4-8.2)
[2020-03-15] MEDS ORDERED: INSULIN HUMAN NPH SC SCH ×2 (08:00→17:00)
[2020-03-15] MEDS: ASCORBIC ACID 500 MG TAB PO SCH (08:55)
[2020-03-15] MEDS: ASPIRIN 81 MG ECTAB PO SCH (08:55)
[2020-03-15] MEDS: CEROVITE ADV FORMULA TAB PO SCH (08:56)
[2020-03-15] MEDS: OMEGA-3 (PURIFIED FISH OIL) 1 GM CAP PO SCH (08:56)
[2020-03-15] MEDS: gemfibroziL 600 MG TAB PO SCH (08:56)
[2020-03-15] MEDS: POLYETHYLENE (MIRALAX) 17 GM PACK PO SCH ×2 (08:57→22:13)
[2020-03-15] MEDS ORDERED: cefTRIAXone SODIUM 2,000 MG in DEXTROSE 5% 50 ML IV SCH (09:00)
[2020-03-15] MEDS ORDERED: PIPERACILL/TAZOBAC CONSULT ACTIVE PRN (09:30)
[2020-03-15] MEDS ORDERED: PIPERACILLIN/TAZOBACTAM 4.5 GM in DEXTROSE 5% 100 ML IV ONE (09:45)
--- NOTE | 2020-03-15 10:10 | XRay Report ---
XR knee LT 1 or 2V routine CLINICAL HISTORY: left knee pain COMPARISON STUDY: None. FINDINGS: Diffuse subcutaneous edema within the left knee and lower leg. Moderate to large suprapatel lar knee effusion. This likely accounts for the inferior displacement of the patella. The bones are o steopenic. Mild vascular calcifications are noted. There is mild to moderate tricompartmental osteoar thritis most pronounced within the medial compartment. Lateral bowing with a linear transverse band o f sclerosis and cortical thickening involving the distal diaphysis of the left femur. This could repr esent a healing stress/insufficiency fracture. IMPRESSION: 1. Moderate to large suprapatellar knee effusion. 2. Lateral bowing with a linear transverse band of sclerosis and cortical thickening involving the di stal diaphysis of the left femur. This could represent a an old, healed fracture versus a stress/insu fficiency fracture. There is pain within the distal femur and then a follow-up MRI to evaluate for a healed versus a stress fracture is recommended. 3. Mild to moderate tricompartmental osteoarthritis. ACT 112: Positive. There are findings on this exam that require communication between the performing entity and the patient following Patient Test Result Information Act ([place] Act 112) guidelines. Electronically signed by: Chapin Nielsen M.D. 03/15/2020 10:09 AM
[2020-03-15] MEDS ORDERED: ETHYL CHLORIDE AER PER SPRAY 100 ML CAN EXT ONE (11:36)
[2020-03-15] MEDS ORDERED: INSULIN HUMAN REGULAR PER UNIT 10 UNITS in SYRINGE 9.9 ML IV STA (12:33)
--- NOTE | 2020-03-15 13:13 | Hospitalist Progress Note ---
Date of Service March 15, 2020 Assessment & Plan (1) Cellulitis: Cellulitis secondary to chronic venous stasis ulcers in the setting of chronic venous insufficiency Per the patient she has a longstanding history of chronic venous insufficiency with chronic venous stasis ulcers. Most recent echo in September 2018 demonstrated a left ventricular ejection fraction of 60 to 65% with normal RVSP. Indicating the lower extremity swelling is most likely from venous insufficiency -Continue Ceftriaxone - MRSA nares was negative however patient has a history of MRSA in a buttock wound in June so will initiate daptomycin -Follow-up blood cultures - Sed rate was 64, C-reactive 9.83 - on admission, repeat ESR 54, CRP 27.6 -Consulted wound care nurse - Will dc tramadol, will try [place] for pain relief - No DVT on ultrasound of left lower leg (2) Left leg pain: Xray 03/15 for increasing pain from knee to hip - shows possible stress fracture and knee effusion and recommended MRI for further evaluation which is pending Orthopedics consulted Will keep on bedrest until further recommendations from orthopedics (3) Diabetes mellitus: patient hyperglycemic today with bsg 420. Holding home meds -Glycemic consult placed (4) Chronic kidney disease, stage 3: Patient follows with Dr. Bhatt for chronic kidney disease. Baseline creatinine appears to be 1.5-1.7. -Avoid nephrotoxic meds - Creat today 1.89 - will hold torsemide for now. Patient having adequate urine output (5) Hypertension: -holding home tosemide (6) Peripheral neuropathy: -PT OT ordered -Fall precautions -Continue home gabapentin (7) Hypothyroidism: -Continue levothyroxine 75 mcg p.o. every morning (8) Hyperlipidemia: -Continue gemfibrozil (9) Generalized osteoarthritis of multiple sites: -PT OT to resume after evaluation by ortho -Pain control (10) Edema: -hold home torsemide 20 mg (11) Afib: Patient had 1 episode of documented atrial fibrillation during an admission in 2018, she was very acutely ill at that time. She spontaneously converted with 1 dose of IV Lopressor and has had no further events after that. She was on metoprolol 25 mg daily and was not started on anticoagulation and maintain normal sinus rhythm. Subsequently Toprol was stopped and she has since had no episodes of atrial fibrillation. -Monitor for development of A. fib (12) Anemia: of chronic disease. Stable, baseline appears to be around 8.5 - 11 (13) DVT prophylaxis: heparin subq Admission and Anticipated Discharge Date Admission Date: March 15, 2020 Subjective Ms. Mike's pain is much worse today and extends from her knee to hip on the left side. The tramadol is not helping. The area of cellulitis itself is not particularly painful, can be palpated with out too much tenderness. She is not having any aches or chills. She did run a fever over the night. Review of Systems Constitutional: as per Subjective / HPI Respiratory: no cough and no dyspnea Cardiovascular: no chest pain and no palpitations Gastrointestinal: no abdominal pain, no nausea and no vomiting Genitourinary: no dysuria and no urinary hesitancy Musculoskeletal: as per Subjective / HPI Integumentary: + rash (lower extremity erythema ) Physical Exam Physical Exam: General: no distress Eyes: normal inspection, PERLL Respiratory: chest non tender, clear to auscultation, normal breath sounds, no respiratory distress, no accessory muscle use Cardiac: regular rate and rhythm, no rub or gallop, no murmur, +3 pitting edema lower extremities GI/: active bowel sounds, no abd pain or tenderness, soft, non distended Extremities: normal range of motion, normal strength, left knee effusion with tenderness to palpation Neuro/Psych: alert and oriented x 3, normal mood and affect Skin: normal color, dry, erythema lower extremities left greater than right Results & Data Results & Data ([facility]) Vital Signs (Past 12 Hours) Vital Signs Temp Pulse Resp BP Pulse Ox 03/15/20 07:35 37.1 C 85 18 125/67 92 03/15/20 04:02 36.7 C 03/15/20 01:35 37.3 C PG Care Time/CCT Total # of Minutes Spent Total Time Spent with Patient: Total time spent is greater than 50% in coordination of care (as documented) at patient's floor/unit and/or counseling patient: Coding Level of Care Code 91884 Subseq Hosp Care Lvl 3 Diagnoses Cellulitis L03.90 Left leg pain M79.605 Diabetes mellitus E11.9 Chronic kidney disease, stage 3 N18.3 Hypertension I10 Hypertension type: essential hypertension Peripheral neuropathy G62.9 Hypothyroidism E03.9 Hyperlipidemia E78.5 Generalized osteoarthritis of multiple sites M15.9 Edema R60.9 Afib I48.91 Atrial fibrillation type: unspecified Anemia D64.9 DVT prophylaxis Z29.9 (1) Hypertension Hypertension type: essential hypertension Qualified Code(s): I10 - Essential (primary) hypertension (2) Afib Atrial fibrillation type: unspecified Qualified Code(s): I48.91 - Unspecified atrial fibrillation
[2020-03-15] MEDS: HYDROCODONE/ACETAMOPHEN 5/325MG TAB PO PRN ×2 (13:16→23:59)
--- NOTE | 2020-03-15 13:46 | Pharmacy Report ---
Pharmacy Glycemic Short Note 2 - Date of Service March 15, 2020 - Glycemic Short BSG Results (Last 24 hours): 03/14/20 03/14/20 03/15/20 17:03 20:38 00:03 Glucose POC Glucose 283 H 299 H 261 H 03/15/20 03/15/20 03/15/20 04:02 05:33 08:32 Glucose 208 H POC Glucose 237 H 250 H 03/15/20 03/15/20 12:00 12:02 Glucose POC Glucose 466 H* 420 H* OUTPATIENT ANTIDIABETIC REGIMEN: * 70/30 60 units BID * A1c 6.6% 10/22/19 ASSESSMENT: 03/15 * BSGs trended upward yesterday and continued to be elevated in the 200s. Patient received 82 units of insulin, 40 units of basal * Tightened novolog parameters to weight based stress of 3 this AM but lunch BSG in 400s. Patient administered 10 units of IV regular insulin. Will tighten all parametres with dinner 03/14 * Pt is a 84 yo female admitted with cellulitis * BSG initially low on admission up to 186 mg/dL this morning. Patient utilized 70/30 insulin 60 units BID. Initial parameters will be based on patients total outpatient dose as well as weight based dosing. PLAN FOR INPATIENT GLYCEMIC CONTROL: * Basal insulin * NPH 20 units SQ this AM, scale for dinner 25-35 units * Bolus insulin * NovoLog per scale ACHS or Q6hrs while NPO * Goal Range: Low 120 mg/dL - High 160 mg/dL * Correction Factor: 12 mg/dL/unit * Nutritional / Prandial insulin per carb ratio of 1 unit per 4 grams CHO consumed PLAN FOR DISCHARGE: * tbd
[2020-03-15] MEDS ORDERED: ETHYL CHLORIDE AER SPR 100 ML CAN EXT ONE (14:30)
--- NOTE | 2020-03-15 15:25 | Procedure Note ---
Procedure Note Date of Service March 15, 2020 The patient's left knee was prepped with a combination of Betadine and alcohol. Utilizing sterile techniques, 18 gauge needle and 60cc syringe, an anterolateral arthrocentesis was performed. 42 cc of straw color, turbid with precipitates synovial fluid was collected. 4x4's and zeke wrap were applied to the knee. The patient tolerated the procedure well. Coding
--- NOTE | 2020-03-15 15:25 | Orthopedic Consultation ---
Date of Consultation March 15, 2020 Assessment & Plan (1) Knee effusion, left: Patient's WBC normal, ESR and CRP 54 and 27 respectfully. Due to large painful effusion, I have indicated the patient for left knee arthrocentesis, risks, benefits, complications and alternatives to the procedure were discussed which include however not limited to infections, injury to nerves, vessels, bone and soft tissue, chronic pain, arthrofibrosis, dry tap, loss of limb and loss of life. Alternatives include no arthrocentesis which could result in worsening clinical picture and symptoms. The patient wished to proceed with arthrocentesis at this time and informed consent was obtained. Patient tolerates left knee arthrocentesis. Obtained 42 cc cloudy straw color, turbid synovial fluid with precipitate. Will send for fluid analysis. Follow up results once available. Trend inflammatory labs. Ice and elevation LLE. Patient currently on daptomycin and zosyn. Make NPO after midnight. If concerning for infectious process will require wash out of the left knee. Thank you for the consultation. (2) Cellulitis of left leg: History of Present Illness Reason for Consultation: Left knee pain/effusion Attending Physician: Jostin Mayfield DO History of Present Illness The patient is an 84-year-old female who presents to [facility] with complaints of acute atraumatic left knee pain and swelling. Reports that symptoms began on 03/13/2020. Denies trauma. Denies numbness or tingling to the left lower extremity. Denies fevers chills, nausea vomiting or shortness of breath. Denies history of gout or tick bite. Symptoms unchanged since admission she reports. Allergies Allergy/AdvReac Type Severity Reaction Status Date / Time Sulfa (Sulfonamide Allergy Intermediate BLISTERS Verified 03/13/20 23:56 Antibiotics) Home Medications Medication Instructions Recorded Confirmed Type aspirin 81 mg tablet,delayed 81 mg PO QAM 11/09/18 03/13/20 History release cholecalciferol (vitamin D3) 50 2,000 unit PO 3XWK 11/09/18 03/13/20 History mcg (2,000 unit) capsule multivitamin,tx-minerals 1 cap PO QAM 11/09/18 03/13/20 History omega 5-fjw-sjo-fish oil 1,000 mg 1 cap PO QAM cap 11/09/18 03/13/20 History (120 mg-180 mg) capsule ascorbic acid (vitamin C) [Vitamin 500 mg PO DAILY 11/18/18 03/13/20 History C] levothyroxine 75 mcg PO QAM 05/20/19 03/13/20 History gabapentin 100 mg capsule 200 mg PO HS #180 cap 06/01/19 03/13/20 Rx insulin human U-100 NPH-regulr See Rx Instructions SQ BID ml 01/18/20 03/13/20 History 70-30 mix 100 unit/mL subcutaneous susp gemfibrozil 600 mg tablet 600 mg PO QAM #30 tab 02/01/20 03/13/20 Rx torsemide 20 mg tablet 40 mg PO BID #360 tab 02/24/20 03/13/20 Rx Patient History Medical History Acute kidney injury (11/2018) Afib Cancer RIGHT BREAST CANCER Cellulitis of right leg Chronic back pain Chronic kidney disease, stage 3 Congenital dislocation of hip Degenerative disc disease Diabetes mellitus IDDM DNR (do not resuscitate) Hypertension Obesity Osteoarthritis Pancreatitis SEPTEMBER 2018 Peripheral neuropathy BILATERAL FEET Pressure ulcer of right heel, stage 3 Stage III pressure ulcer of right buttock Surgical History History of cataract surgery BILATERAL History of cholecystectomy History of detached retina repair LEFT History of hip surgery LEFT HIP DISLOCATION SURGERY A CHILD (UNSUCCESSFUL) History of mastectomy RIGHT BREAST WITH 1 LYMPH NODE REMOVAL History of thyroidectomy REMOVAL OF GOITER Hx of tonsillectomy Status post debridement hip open wound Family History Unknown Cancer Father Bone cancer Mother Diabetes Daughter Diabetes Breast cancer Son Diabetes Sister Diabetes Grandmother (Paternal) Breast cancer Denies family history of Ovarian cancer Prostate cancer Myocardial infarction Colorectal cancer Social History Smoking Status: Never smoker Second Hand Exposure: No; Hx Alcohol Use: No Hx Substance Use: No Preferred Language: Polish Communication Ability: Effective Visual Impairment: No Limitations Head Of Loss Prevention Required: No Beliefs That Will Affect Care: None marital status: Current Living Situation: Spouse Other Information That Helps Us Care for You: No Feels Safe at Home: Yes Safety Concerns: Feels Safe At This Time Seatbelt Use: always Assistive Devices: Denture - Upper, Denture - Lower, Glasses and Walker Review of Systems Review of Systems: All systems reviewed & are unremarkable except as noted in HPI & below Constitutional: as per Subjective / HPI Physical Exam Physical Exam: Left lower extremity is neurovascular sensory intact grossly, +2 dorsalis pedis pulse, venous stasis left lower extremity and cellulitis, left knee demonstrates no erythema however large effusion minimal range of motion with severe pain. Constitutional: WD/WN, vitals as above Results & Data ([facility]) Vital Signs (Past 12 Hours) Vital Signs Temp Pulse Resp BP Pulse Ox 03/15/20 07:35 37.1 C 85 18 125/67 92 03/15/20 04:02 36.7 C Laboratory Results 03/15/20 03/15/20 03/15/20 Range/Units 12:02 12:00 08:32 WBC (4.8-10.8) K/uL RBC (4.2-5.4) M/uL Hgb (12.0-16.0) g/dL Hct (37-47) % MCV (80-100) fL MCH (25-34) pg MCHC (32-36) g/dL RDW Std Deviation (36.4-46.3) fL RDW Coeff of Brian (11.5-14.5) % Plt Count (130-400) K/uL MPV (7.4-10.4) fL Immature Gran % (Auto) % Neut % (Auto) % Lymph % (Auto) % Weber % (Auto) % Eos % (Auto) % Baso % (Auto) % Neut # (Auto) (1.4-6.5) K/uL Lymph # (Auto) (1.2-3.4) K/uL Weber # (Auto) (0.11-0.59) K/uL Eos # (Auto) (0-0.5) K/uL Baso # (Auto) (0-0.2) K/uL Immature Gran # (Auto) (0.00-0.02) K/uL ESR (0-21) mm/hr Sodium (136-145) mmol/L Potassium (3.5-5.1) mmol/L Chloride (98-107) mmol/L Carbon Dioxide (21-32) mmol/L Anion Gap (3-11) BUN (7-18) mg/dl Creatinine (0.6-1.2) mg/dl Est Cr Clr Drug Dosing ml/min Est GFR ( Amer) Est GFR (Non-Af Amer) BUN/Creatinine Ratio (10-20) Glucose (70-99) mg/dl POC Glucose 420 H* 466 H* 250 H (70-99) mg/dl Estimat Average Glucose mg/dl Hemoglobin A1c (4.5-5.6) % Calcium (8.5-10.1) mg/dl Total Bilirubin (0.2-1) mg/dl AST (15-37) U/L ALT (12-78) U/L Alkaline Phosphatase (45-117) U/L C-Reactive Protein (0-0.29) mg/dl Total Protein (6.4-8.2) gm/dl Albumin (3.4-5.0) gm/dl Globulin (2.5-4.0) gm/dl Albumin/Globulin Ratio (0.9-2) 03/15/20 03/15/20 03/15/20 Range/Units 05:33 05:33 05:33 WBC (4.8-10.8) K/uL RBC (4.2-5.4) M/uL Hgb (12.0-16.0) g/dL Hct (37-47) % MCV (80-100) fL MCH (25-34) pg MCHC (32-36) g/dL RDW Std Deviation (36.4-46.3) fL RDW Coeff of Brian (11.5-14.5) % Plt Count (130-400) K/uL MPV (7.4-10.4) fL Immature Gran % (Auto) % Neut % (Auto) % Lymph % (Auto) % Weber % (Auto) % Eos % (Auto) % Baso % (Auto) % Neut # (Auto) (1.4-6.5) K/uL Lymph # (Auto) (1.2-3.4) K/uL Weber # (Auto) (0.11-0.59) K/uL Eos # (Auto) (0-0.5) K/uL Baso # (Auto) (0-0.2) K/uL Immature Gran # (Auto) (0.00-0.02) K/uL ESR 54 H (0-21) mm/hr Sodium 138 (136-145) mmol/L Potassium 4.1 (3.5-5.1) mmol/L Chloride 103 (98-107) mmol/L Carbon Dioxide 30 (21-32) mmol/L Anion Gap 5.0 (3-11) BUN 33 H (7-18) mg/dl Creatinine 1.89 H (0.6-1.2) mg/dl Est Cr Clr Drug Dosing 25.9 ml/min Est GFR ( Amer) 27.9 Est GFR (Non-Af Amer) 24.1 BUN/Creatinine Ratio 17.3 (10-20) Glucose 208 H (70-99) mg/dl POC Glucose (70-99) mg/dl Estimat Average Glucose 148 mg/dl Hemoglobin A1c 6.8 H (4.5-5.6) % Calcium 8.8 (8.5-10.1) mg/dl Total Bilirubin 0.6 (0.2-1) mg/dl AST 14 L (15-37) U/L ALT 11 L (12-78) U/L Alkaline Phosphatase 68 (45-117) U/L C-Reactive Protein 27.60 H (0-0.29) mg/dl Total Protein 6.8 (6.4-8.2) gm/dl Albumin 2.4 L (3.4-5.0) gm/dl Globulin 4.4 H (2.5-4.0) gm/dl Albumin/Globulin Ratio 0.5 L (0.9-2) 03/15/20 03/15/20 03/15/20 Range/Units 05:33 04:02 00:03 WBC 9.89 (4.8-10.8) K/uL RBC 3.14 L (4.2-5.4) M/uL Hgb 9.5 L (12.0-16.0) g/dL Hct 30.0 L (37-47) % MCV 95.5 (80-100) fL MCH 30.3 (25-34) pg MCHC 31.7 L (32-36) g/dL RDW Std Deviation 53.0 H (36.4-46.3) fL RDW Coeff of Brian 15.3 H (11.5-14.5) % Plt Count 165 (130-400) K/uL MPV 10.9 H (7.4-10.4) fL Immature Gran % (Auto) 0.3 % Neut % (Auto) 72.1 % Lymph % (Auto) 17.1 % Weber % (Auto) 9.3 % Eos % (Auto) 0.9 % Baso % (Auto) 0.3 % Neut # (Auto) 7.13 H (1.4-6.5) K/uL Lymph # (Auto) 1.69 (1.2-3.4) K/uL Weber # (Auto) 0.92 H (0.11-0.59) K/uL Eos # (Auto) 0.09 (0-0.5) K/uL Baso # (Auto) 0.03 (0-0.2) K/uL Immature Gran # (Auto) 0.03 H (0.00-0.02) K/uL ESR (0-21) mm/hr Sodium (136-145) mmol/L Potassium (3.5-5.1) mmol/L Chloride (98-107) mmol/L Carbon Dioxide (21-32) mmol/L Anion Gap (3-11) BUN (7-18) mg/dl Creatinine (0.6-1.2) mg/dl Est Cr Clr Drug Dosing ml/min Est GFR ( Amer) Est GFR (Non-Af Amer) BUN/Creatinine Ratio (10-20) Glucose (70-99) mg/dl POC Glucose 237 H 261 H (70-99) mg/dl Estimat Average Glucose mg/dl Hemoglobin A1c (4.5-5.6) % Calcium (8.5-10.1) mg/dl Total Bilirubin (0.2-1) mg/dl AST (15-37) U/L ALT (12-78) U/L Alkaline Phosphatase (45-117) U/L C-Reactive Protein (0-0.29) mg/dl Total Protein (6.4-8.2) gm/dl Albumin (3.4-5.0) gm/dl Globulin (2.5-4.0) gm/dl Albumin/Globulin Ratio (0.9-2) 03/14/20 03/14/20 Range/Units 20:38 17:03 WBC (4.8-10.8) K/uL RBC (4.2-5.4) M/uL Hgb (12.0-16.0) g/dL Hct (37-47) % MCV (80-100) fL MCH (25-34) pg MCHC (32-36) g/dL RDW Std Deviation (36.4-46.3) fL RDW Coeff of Brian (11.5-14.5) % Plt Count (130-400) K/uL MPV (7.4-10.4) fL Immature Gran % (Auto) % Neut % (Auto) % Lymph % (Auto) % Weber % (Auto) % Eos % (Auto) % Baso % (Auto) % Neut # (Auto) (1.4-6.5) K/uL Lymph # (Auto) (1.2-3.4) K/uL Weber # (Auto) (0.11-0.59) K/uL Eos # (Auto) (0-0.5) K/uL Baso # (Auto) (0-0.2) K/uL Immature Gran # (Auto) (0.00-0.02) K/uL ESR (0-21) mm/hr Sodium (136-145) mmol/L Potassium (3.5-5.1) mmol/L Chloride (98-107) mmol/L Carbon Dioxide (21-32) mmol/L Anion Gap (3-11) BUN (7-18) mg/dl Creatinine (0.6-1.2) mg/dl Est Cr Clr Drug Dosing ml/min Est GFR ( Amer) Est GFR (Non-Af Amer) BUN/Creatinine Ratio (10-20) Glucose (70-99) mg/dl POC Glucose 299 H 283 H (70-99) mg/dl Estimat Average Glucose mg/dl Hemoglobin A1c (4.5-5.6) % Calcium (8.5-10.1) mg/dl Total Bilirubin (0.2-1) mg/dl AST (15-37) U/L ALT (12-78) U/L Alkaline Phosphatase (45-117) U/L C-Reactive Protein (0-0.29) mg/dl Total Protein (6.4-8.2) gm/dl Albumin (3.4-5.0) gm/dl Globulin (2.5-4.0) gm/dl Albumin/Globulin Ratio (0.9-2) Diagnostic Findings XR knee LT 1 or 2V routine CLINICAL HISTORY: left knee pain COMPARISON STUDY: None. FINDINGS: Diffuse subcutaneous edema within the left knee and lower leg. Moderate to large suprapatellar knee effusion. This likely accounts for the inferior displacement of the patella. The bones are osteopenic. Mild vascular calcifications are noted. There is mild to moderate tricompartmental osteoarthritis most pronounced within the medial compartment. Lateral bowing with a linear transverse band of sclerosis and cortical thickening involving the distal diaphysis of the left femur. This could represent a healing stress/insu fficiency fracture. IMPRESSION: 1. Moderate to large suprapatellar knee effusion. 2. Lateral bowing with a linear transverse band of sclerosis and cortical thickening involving the distal diaphysis of the left femur. This could represent a an old, healed fracture versus a stress/insufficiency fracture. There is pain within the distal femur and then a follow-up MRI to evaluate for a healed versus a stress fracture is recommended. 3. Mild to moderate tricompartmental osteoarthritis.
[2020-03-15] MEDS ORDERED: EUCERIN CR 120 GM JAR EXT PRN (17:02)
--- NOTE | 2020-03-15 17:10 | Magnetic Resonance Report ---
MR femur LT wo con CLINICAL HISTORY: Left leg pain. Inability to walk. Abnormal x-ray. COMPARISON STUDY: X-ray dated 03/15/2020 FINDINGS: Images were acquired in the axial, sagittal, and coronal planes. There are deformities of the left proximal femoral diaphysis and distal femoral diaphysis. The findin gs are consistent with fractures. There is no current marrow edema in these fractures are felt to be old. There is deformity of the left femoral head and neck and there are severe arthritic changes involving the left hip. There are mildly prominent left inguinal lymph nodes, likely reactive. There is a small joint effusion at the level the knee. There is bilateral subcutaneous edema. IMPRESSION: 1. Old fractures of the proximal and distal left femur. No acute fractures identified 2. Chronic deformity of the left femoral head and neck with secondary severe arthritic changes involv ing the left hip. 3. Soft tissue edema 4. Small joint effusion involving the knee. ACT 112: Negative or not required by law. Electronically signed by: Jose Borrero M.D. 03/15/2020 5:08 PM
[2020-03-15] MEDS: PIPERACILLIN/TAZOBACTAM 4.5 GM in DEXTROSE 5% 100 ML IV SCH ×2 (17:32→23:54)
[2020-03-15 18:06] LABS: Appearance Synovial Fluid CLOUDY; Color Synovial Fluid STRAW; RBC Synovial Fluid (A) 34000 /uL; Source Synovial Fluid KNEE; WBC Synovial Fluid (A) 54560 /ul (0-200)
[2020-03-15 18:07] LABS: Other Cells Synovial Fluid 0 %
[2020-03-15] MEDS ORDERED: INSULIN HUMAN REGULAR PER UNIT 10 UNITS in SYRINGE 9.9 ML IV ONE (21:30)
[2020-03-15] MEDS: GABAPENTIN 100 MG CAP PO SCH (22:14)
[2020-03-16] MEDS ORDERED: INSULIN ASPART 100 UNITS/ML 3 ML PEN SC SCH ×2 (06:00)
[2020-03-16] MEDS ORDERED: INSULIN HUMAN REGULAR PER UNIT 5 UNITS in SYRINGE 4.95 ML IV ONE (06:00)
[2020-03-16] MEDS: HYDROCODONE/ACETAMOPHEN 5/325MG TAB PO PRN ×3 (06:11→22:09)
[2020-03-16 06:16] LABS: Hematocrit (blood only) 29.4 % (37-47); Hemoglobin 9.4 g/dL (12.0-16.0); Mean Corpuscular Hemoglobin 30.2 pg (25-34); Mean Corpuscular Volume 94.5 fL (80-100); Platelet Count 201 K/uL (130-400); RDW Coefficient of Variation 14.8 % (11.5-14.5); RDW Standard Deviation 50.6 fL (36.4-46.3); Red Blood Count 3.11 M/uL (4.2-5.4); White Blood Count 11.43 K/uL (4.8-10.8)
[2020-03-16] MEDS: LEVOTHYROXINE SODIUM 75 MCG TABLET PO SCH (06:19)
[2020-03-16 07:17] LABS: BUN Creatinine Ratio 18.2 (10-20); C Reactive Protein 35.6 mg/dl (0-0.29); Creatinine Clr Calc Pharmacy 27.4 ml/min; Est GFR (African American) 29.8; Est GFR (Non-African American) 25.8; Potassium 4.3 mmol/L (3.5-5.1)
[2020-03-16 07:30] LABS: Beta-Hydroxybutyrate 3.23 mg/dl (0.2-2.81)
[2020-03-16] MEDS ORDERED: INSULIN HUMAN NPH SC ONE ×2 (08:00)
[2020-03-16] MEDS ORDERED: SEVERE STRESS LEVEL ONE (08:17)
[2020-03-16] MEDS ORDERED: INSULIN PROTOCOL GOAL RANGE ONE (08:17)
[2020-03-16] MEDS ORDERED: INSULIN HUMAN REGULAR PER UNIT 4 UNITS in SYRINGE 3.96 ML IV ONE (08:30)
--- NOTE | 2020-03-16 08:54 | Hospitalist Progress Note ---
Date of Service March 16, 2020 Assessment & Plan (1) Knee effusion, left: Apparently septic growing gram negative bacilli - continue Zosyn Patient will go to OR for washout today per orthopedics She does not have any history of CAD or CHF, last echo was a year ago with normal EF. She is able to ambulate around her house but is limited in functional ability due to arthritis. Her TONY score is 3% for risk of myocardial infarction or cardiac arrest intraoperatively or up to 30 days post op. However, the need for infection control likely outweighs risks of surgery. This was discussed with the patient and she verbalized understanding. She remains significantly hyperglycemic and an insulin gtt with be initiated. This was discussed with ortho and also touched base with anesthesia on this. (2) Cellulitis: Cellulitis of bilateral lower extremities Cellulitis secondary to chronic venous stasis ulcers in the setting of chronic venous insufficiency Per the patient she has a longstanding history of chronic venous insufficiency with chronic venous stasis ulcers. Most recent echo in September 2018 demonstrated a left ventricular ejection fraction of 60 to 65% with normal RVSP. Indicating the lower extremity swelling is most likely from venous insufficiency -Continue Zosyn - MRSA nares was negative however patient has a history of MRSA in a buttock wound in June so will continue daptomycin -BC ngtd - Sed rate and CRP continue to climb - ESR 80, C-reactive 35 -Consulted wound care nurse -Continue Dexter for pain relief - No DVT on ultrasound of left lower leg (3) Left leg pain: Xray 12/8 for increasing pain from knee to hip - shows possible stress fracture and knee effusion, follow up MRI shows fracture to be old Pain management as above Orthopedics consulted (4) Diabetes mellitus: patient continued to be hyperglycemic overnight bsgs 300-400, insulin gtt initiated Holding home meds -Glycemic consult (5) Chronic kidney disease, stage 3: Patient follows with Dr. Bhatt for chronic kidney disease. Baseline creatinine appears to be 1.5-1.7. -Avoid nephrotoxic meds - Creat 1.8 - held torsemide yesterday for increasing creatinine, held this morning for npo status, can resume tonight (6) Hypertension: -holding home tosemide, resume tonight (7) Peripheral neuropathy: -PT OT ordered -Fall precautions -Continue home gabapentin (8) Hypothyroidism: -Continue levothyroxine 75 mcg p.o. every morning (9) Hyperlipidemia: -Continue gemfibrozil (10) Generalized osteoarthritis of multiple sites: -PT OT -Pain control (11) Edema: -torsemide as above (12) Afib: Patient had 1 episode of documented atrial fibrillation during an admission in 2019, she was very acutely ill at that time. She spontaneously converted with 1 dose of IV Lopressor and has had no further events after that. She was on metoprolol 25 mg daily and was not started on anticoagulation and maintain normal sinus rhythm. Subsequently Toprol was stopped and she has since had no episodes of atrial fibrillation. -Monitor for development of A. fib (13) Anemia: of chronic disease. Stable, baseline appears to be around 8.5 - 11 (14) Pressure ulcer: Stage 3 Pressure ulcer of left & right medial buttock, POA Wound care nurse consulted Turn and reposition frequently (15) DVT prophylaxis: heparin subq Admission and Anticipated Discharge Date Admission Date: March 15, 2020 Supervising Physician Co-Signing Physician Notes chart reviewed and case d/w S Liliana PATEL. agree w above Subjective Ms. Mike is feeling comfortable this morning, awaiting surgery for washout of her knee. Review of Systems Constitutional: no fever, no chills and no body aches Respiratory: no cough, no dyspnea and no wheezing Cardiovascular: no chest pain, no palpitations and no lightheadedness Gastrointestinal: no abdominal pain, no nausea and no vomiting Genitourinary: no dysuria and no urinary hesitancy Musculoskeletal: no back pain and no joint pain Integumentary: + erythema Physical Exam Physical Exam: General: no distress Eyes: normal inspection, PERLL Respiratory: chest non tender, clear to auscultation, normal breath sounds, no respiratory distress, no accessory muscle use Cardiac: regular rate and rhythm, no rub or gallop, no murmur, +3 pitting edema lower extremities GI/: active bowel sounds, no abd pain or tenderness, soft, non distended Extremities: normal range of motion, normal strength Neuro/Psych: alert and oriented x 3, normal mood and affect Skin: normal color, dry, erythema lower extremities left greater than right Results & Data Results & Data ([facility]) Vital Signs (Past 12 Hours) Vital Signs Temp Pulse Resp BP Pulse Ox 03/16/20 07:35 36.9 C 82 18 129/67 94 03/16/20 03:04 37.3 C 91 H 18 129/65 92 03/15/20 23:24 37.2 C 92 H 18 130/66 92 PG Care Time/CCT Total # of Minutes Spent Total Time Spent with Patient: Total time spent is greater than 50% in coordination of care (as documented) at patient's floor/unit and/or counseling patient: Coding Level of Care Code 71576 Subseq Hosp Care Lvl 3 Diagnoses Knee effusion, left M25.462 Cellulitis L03.90 Left leg pain M79.605 Diabetes mellitus E11.9 Chronic kidney disease, stage 3 N18.3 Hypertension I10 Hypertension type: essential hypertension Peripheral neuropathy G62.9 Hypothyroidism E03.9 Hyperlipidemia E78.5 Generalized osteoarthritis of multiple sites M15.9 Edema R60.9 Afib I48.91 Atrial fibrillation type: unspecified Anemia D64.9 Pressure ulcer L89.90 DVT prophylaxis Z29.9 (1) Afib Atrial fibrillation type: unspecified Qualified Code(s): I48.91 - Unspecified atrial fibrillation (2) Hypertension Hypertension type: essential hypertension Qualified Code(s): I10 - Essential (primary) hypertension
[2020-03-16] MEDS: PIPERACILLIN/TAZOBACTAM 4.5 GM in DEXTROSE 5% 100 ML IV SCH ×3 (09:28→23:41)
[2020-03-16] MEDS: TORSEMIDE 20 MG TAB PO SCH ×2 (09:28→22:10)
[2020-03-16] MEDS ORDERED: DEXAMETHASONE SOD INJ 4 MG/ML VIAL ONE (09:32)
[2020-03-16] MEDS ORDERED: LIDOCAINE HCL 2% 2 ML VIAL/AMP(20MG/ML) INFIL ONE (09:32)
[2020-03-16] MEDS ORDERED: ONDANSETRON INJ 2 MG/ML 2 ML VIAL ONE (09:32)
[2020-03-16] MEDS ORDERED: PROPOFOL IV EMULSION 10 MG/ML 20 ML VIAL IV ONE (09:32)
[2020-03-16] MEDS ORDERED: fentaNYL citrate 100 MCG/2 ML VIAL ONE (09:33)
--- NOTE | 2020-03-16 09:59 | Pharmacy Report ---
Pharmacy Glycemic Short Note 2 - Date of Service March 16, 2020 - Glycemic Short BSG Results (Last 24 hours): 03/15/20 03/15/20 03/15/20 12:00 12:02 17:33 Glucose POC Glucose 466 H* 420 H* 372 H* 03/15/20 03/15/20 03/15/20 17:35 21:15 21:16 Glucose POC Glucose 390 H* 427 H* 441 H* 03/15/20 03/15/20 03/16/20 23:55 23:59 05:43 Glucose POC Glucose 375 H* 377 H* 349 H* 03/16/20 03/16/20 05:45 05:58 Glucose 323 H* POC Glucose 359 H* OUTPATIENT ANTIDIABETIC REGIMEN: * 70/30 60 units BID * A1c 6.6% 10/22/19 ASSESSMENT: 03/16 * BSGs very poorly controlled yesterday, 250, 466, 372, 427, 375 mg/dL * Patient received 179 units of insulin (55 units of NPH, 124 units of prandial/correctional Novolog, and 20 units of IV regular insulin) * Patient to have left knee I&D today - knee aspirate growing gram-negative bacilli * Insulin infusion ordered, but not started prior to leaving for OR * Will give NPH 42 units SC x 1 now with additional 4 unit IV insulin bolus (received 5 units earlier this morning) prior to OR * BSG postoperatively is 255 mg/dL - will initiate insulin infusion * Continues on Zosyn + daptomycin 03/14 * Pt is a 84 yo female admitted with cellulitis * BSG initially low on admission up to 186 mg/dL this morning. Patient utilized 70/30 insulin 60 units BID. Initial parameters will be based on patients total outpatient dose as well as weight based dosing. PLAN FOR INPATIENT GLYCEMIC CONTROL: * Insulin infusion initiated postoperatively - will plan to continue overnight, but possible discontinue if NPH doses bring BSGs into acceptable range * Basal insulin * NPH 42 units SC x 1 this AM * NPH 30 units SC x 1 this evening * Bolus insulin * NovoLog per scale ACHS or Q6hrs while NPO * Nutritional / Prandial insulin per carb ratio of 1 unit per 4 grams CHO consumed PLAN FOR DISCHARGE: * tbd
[2020-03-16] MEDS ORDERED: BACITRACIN INJ 50,000 UNIT VIAL ONE (10:16)
--- NOTE | 2020-03-16 10:25 | Anesthesiology Consultation ---
Date of Service March 16, 2020 Assessment & Plan Chart Review Chart Review: Acceptable Risk for Surgery Consults Requested none History Surgery Operation Date: 03/16/20 10:30 Proposed Procedures p Arthroscopy Knee Incision and Drainage Left - Herve Murguia MD Height/Weight Height: 5 ft 4 in Weight: 99.9 kg Allergies Allergy/AdvReac Type Severity Reaction Status Date / Time Sulfa (Sulfonamide Allergy Intermediate BLISTERS Verified 03/13/20 23:56 Antibiotics) Medications Home Medications Medication Instructions Recorded Confirmed Last Taken aspirin 81 mg tablet,delayed 81 mg PO QAM 11/09/18 03/13/20 03/13/20 release cholecalciferol (vitamin D3) 50 2,000 unit PO 3XWK 11/09/18 03/13/20 03/11/20 mcg (2,000 unit) capsule multivitamin,tx-minerals 1 cap PO QAM 11/09/18 03/13/20 03/13/20 omega 2-fim-cnk-fish oil 1,000 mg 1 cap PO QAM cap 11/09/18 03/13/20 03/13/20 (120 mg-180 mg) capsule ascorbic acid (vitamin C) [Vitamin 500 mg PO DAILY 11/18/18 03/13/20 03/13/20 C] levothyroxine 75 mcg PO QAM 05/20/19 03/13/20 03/13/20 gabapentin 100 mg capsule 200 mg PO HS #180 cap 06/01/19 03/13/20 03/13/20 insulin human U-100 NPH-regulr See Rx Instructions SQ BID ml 01/18/20 03/13/20 03/13/20 70-30 mix 100 unit/mL subcutaneous susp gemfibrozil 600 mg tablet 600 mg PO QAM #30 tab 02/01/20 03/13/20 03/13/20 torsemide 20 mg tablet 40 mg PO BID #360 tab 02/24/20 03/13/20 03/13/20 Active Medications Generic Name Dose Route Start Last Admin Trade Name Freq PRN Reason Stop Dose Admin Acetaminophen 650 mg 03/14/20 05:03 03/14/20 23:58 Acetaminophen 325 Mg Tab PO 04/13/20 05:02 650 mg Q4H PRN Administration pain/fever Hydrocodone Bitart/Acetaminophen 1 - 2 tab 03/15/20 10:44 03/16/20 06:11 Hydrocodone/Acetamophen 5/325mg Tab PO 03/29/20 10:43 2 tab Q4H PRN Administration Pain Ascorbic Acid 500 mg 03/14/20 09:00 03/15/20 08:55 Ascorbic Acid 500 Mg Tab PO 04/13/20 08:59 500 mg DAILY MALIK Administration Aspirin 81 mg 03/14/20 09:00 03/15/20 08:55 Aspirin 81 Mg Ectab PO 04/13/20 08:59 81 mg QAM MALIK Administration Fish Oil 1 gm 03/14/20 09:00 03/15/20 08:56 [place]-3 (Purified Fish Oil) 1 Gm Cap PO 04/13/20 08:59 1 gm QAM MALIK Administration Gabapentin 200 mg 03/14/20 21:00 03/15/20 22:14 Gabapentin 100 Mg Cap PO 04/13/20 20:59 200 mg HS MALIK Administration Gemfibrozil 600 mg 03/14/20 09:00 03/15/20 08:56 Gemfibrozil 600 Mg Tab PO 04/13/20 08:59 600 mg QAM MALIK Administration Heparin Sodium (Porcine) 7,500 units 03/14/20 06:00 03/15/20 14:11 Heparin Sod 5,000 Unit/0.5 Ml Vial SQ 04/13/20 05:59 7,500 units Q8 MALIK Administration Daptomycin 300 mg/ Syringe 6 mls @ 3 mls/min 03/14/20 13:30 03/14/20 13:56 IV 03/21/20 13:29 0.01 mls/min Q48H MALIK Administration Protocol Piperacillin Sod/Tazobactam 120 mls @ 30 mls/hr 03/15/20 16:00 03/16/20 09:28 Sod 4.5 gm/ Dextrose IV 03/22/20 15:59 30 mls/hr Q8H MALIK Administration Protocol Levothyroxine Sodium 75 mcg 03/14/20 06:30 03/16/20 06:19 Levothyroxine Sodium 75 Mcg Tablet PO 04/13/20 06:29 75 mcg DAILYBB MALIK Administration Miconazole Nitrate 1 appln 03/14/20 18:26 03/14/20 21:41 Miconazole Nitrate Powder 43 Gm EXT 04/13/20 18:25 1 appln PRN PRN Administration Affected Skin Folds Multivitamins/Minerals 1 tab 03/14/20 09:00 03/15/20 08:56 Cerovite Adv Formula Tab PO 04/13/20 08:59 1 tab QAM MALIK Administration Polyethylene Glycol 17 gm 03/14/20 09:00 03/15/20 22:13 Polyethylene (Miralax) 17 Gm Pack PO 04/13/20 08:59 17 gm BID MALIK Administration Torsemide 40 mg 03/14/20 09:00 03/16/20 09:28 Torsemide 20 Mg Tab PO 04/13/20 08:59 Not Given BID MALIK Vitamin D 2,000 units 03/14/20 09:00 03/14/20 09:01 Cholecalciferol 1,000 Units 25 Mcg Tab PO 04/13/20 08:59 2,000 units [id number] MALIK Administration NPO Date Last Intake of Fluids: 03/15/20 Time Last Intake of Fluids: 17:50 Date Last Intake of Solids: 03/15/20 Time Last Intake of Solids: 17:50 Past Medical History Medical History Acute kidney injury (11/2018) Afib Cancer RIGHT BREAST CANCER Cellulitis of right leg Chronic back pain Chronic kidney disease, stage 3 Congenital dislocation of hip Degenerative disc disease Diabetes mellitus IDDM DNR (do not resuscitate) Hypertension Obesity Osteoarthritis Pancreatitis SEPTEMBER 2018 Peripheral neuropathy BILATERAL FEET Pressure ulcer of right heel, stage 3 Stage III pressure ulcer of right buttock Past Family History Family History Unknown Cancer Father Bone cancer Mother Diabetes Daughter Diabetes Breast cancer Son Diabetes Sister Diabetes Grandmother (Paternal) Breast cancer Denies family history of Ovarian cancer Prostate cancer Myocardial infarction Colorectal cancer Past Surgical History Surgical History History of cataract surgery BILATERAL History of cholecystectomy History of detached retina repair LEFT History of hip surgery LEFT HIP DISLOCATION SURGERY A CHILD (UNSUCCESSFUL) History of mastectomy RIGHT BREAST WITH 1 LYMPH NODE REMOVAL History of thyroidectomy REMOVAL OF GOITER Hx of tonsillectomy Status post debridement hip open wound Social History Smoking Status: Never smoker Hx Alcohol Use: No Hx Substance Use: No substance use type: does not use Physical Exam Vital Signs Last Vital Signs Temp 36.8 C 03/16/20 10:16 Pulse 20 L 03/16/20 10:16 Resp 18 03/16/20 07:35 BP 142/67 H 03/16/20 10:16 Pulse Ox 96 03/16/20 10:16 Testing Laboratory Results 03/16/20 05:58 03/16/20 05:58 PT 12.4 Seconds (9.0-12.0) H 03/13/20 23:38 INR 1.2 (0.9-1.1) H 03/13/20 23:38 APTT 30.3 Seconds (21.0-31.0) 03/13/20 23:38 Hemoglobin A1c 6.8 % (4.5-5.6) H 03/15/20 05:33 Urine Color Yellow 03/14/20 02:54 Urine Appearance Clear (Clear) 03/14/20 02:54 Urine pH 7.0 (4.5-7.5) 03/14/20 02:54 Ur Specific [place] 1.016 (1.000-1.030) 03/14/20 02:54 Urine Protein Negative (Negative) 03/14/20 02:54 Urine Glucose (UA) Negative (Negative) 03/14/20 02:54 Urine Ketones Negative (Negative) 03/14/20 02:54 Urine Nitrite Negative (Negative) 03/14/20 02:54 Ur Leukocyte Esterase 1+ (Negative) H 03/14/20 02:54 Urine WBC (Auto) 1-5 /hpf (0-5) 03/14/20 02:54 Urine RBC (Auto) 0-4 /hpf (0-4) 03/14/20 02:54 U Hyaline Cast (Auto) 1-5 /lpf (0-5) 03/14/20 02:54 U Epithel Cells (Auto) >30 /lpf (0-5) H 03/14/20 02:54 Urine Bacteria (Auto) Negative (Negative) 03/14/20 02:54 03/15/20 15:54 Gram Stain - Final Knee,Left Aerobic and Anaerobic Culture - Preliminary Gram negative bacilli 03/14/20 05:32 Aerobic Blood Culture - Preliminary Blood No growth in Aerobic bottle after 48 hours. Anaerobic Blood Culture - Final 03/14/20 05:41 Aerobic Blood Culture - Preliminary Blood No growth in Aerobic bottle after 48 hours. Anaerobic Blood Culture - Final 03/13/20 23:14 Aerobic Blood Culture - Preliminary Blood No growth in Aerobic bottle after 48 hours. Anaerobic Blood Culture - Preliminary No growth in Anaerobic bottle after 48 hours. 03/13/20 23:38 Aerobic Blood Culture - Preliminary Blood No growth in Aerobic bottle after 48 hours. Anaerobic Blood Culture - Preliminary No growth in Anaerobic bottle after 48 hours. 03/16/20 03/16/20 03/16/20 10:11 05:45 05:43 POC Glucose 268 H 359 H* 349 H* 03/15/20 03/15/20 23:59 23:55 POC Glucose 377 H* 375 H*
[2020-03-16] MEDS ORDERED: ONDANSETRON INJ 2 MG/ML 2 ML VIAL IV PRN (10:28)
[2020-03-16] MEDS ORDERED: ATROPINE SULFATE 0.1 MG/ML 10ML SYR IV PRN (10:28)
[2020-03-16] MEDS ORDERED: METOCLOPRAMIDE HCL INJ 5 MG/ML 2 ML VIAL IV PRN (10:28)
[2020-03-16] MEDS ORDERED: HYDROmorphone INJ 1 MG/ML SYRINGE IV PRN (10:28)
[2020-03-16] MEDS ORDERED: ePHEDrine sulfate 50 MG/ML AMP IV PRN (10:28)
[2020-03-16] MEDS ORDERED: MoRPHine SULFATE 10 MG/ML CARP/VIAL IV PRN (10:28)
[2020-03-16] MEDS ORDERED: PROMETHAZINE HCL 12.5 MG in SODIUM CHLORIDE 0.9% 50 ML IV PRN (10:28)
[2020-03-16] MEDS ORDERED: fentaNYL citrate 100 MCG/2 ML VIAL IV PRN (10:28)
--- NOTE | 2020-03-16 10:32 | History & Physical Bridge Note ---
Date of Service March 16, 2020 History & Physical Bridge Note I have examined the patient, reviewed the History & Physical and in the interval since the performance of the History & Physical I have noted the following changes of clinical significance: no changes noted
[2020-03-16] MEDS ORDERED: EPINEPHrine INJ 1 MG/ML AMP ONE (10:36)
[2020-03-16] MEDS ORDERED: BUPIVACAINE 0.5 % 5 MG/1 ML MPF 30ML VIAL ONE (10:36)
--- NOTE | 2020-03-16 11:55 | Post Operative Brief Note ---
Immediate Post Op Note v1 Date of Surgery March 16, 2020 Pre & Post Diagnosis Operation Date: 03/16/20 10:30 Pre-Op Diagnosis: Left knee septic knee joint with osteoarthritis of the knee and cellulitis left lower extremity Post-Op Diagnosis: Left knee septic knee joint with osteoarthritis, extensive chondrocalcinosis, synovitis, meniscal degeneration I identified the patient and participated in the time-out.: Yes Procedure Operation Date: 03/16/20 10:30 Actual Procedures p Left Knee Arthroscopic irrigation and extensive debridement, partial synovectomy, removal calcium deposits, placement of drain(Left) - Herve Murguia MD Surgeon Herve Murguia MD Cream Gatherer None Estimated Blood Loss 3 Findings Consistent with Post-Op Diagnosis Specimens Culture and sensitivity fluid for cell count differential crystal analysis Drains Renee Catheter (patient arrived to OR with intact, draining renee) and Hemovac Drain Anesthesia Type General Disposition Accompanied Patient To Recovery: No Disposition: Recovery Room Overlapping Procedure I was immediately available: during the entire case.
--- NOTE | 2020-03-16 12:13 | Operative Report ---
Post Operative Report Pre & Post Diagnosis Operation Date: 03/16/20 10:30 Pre-Op Diagnosis: Left knee septic knee joint, osteoarthritis of the knee Post-Op Diagnosis: Left knee septic knee joint, extensive chondrocalcinosis and synovitis, degenerative osteoarthritis and degenerative meniscus medial and lateral I identified the patient and participated in the time-out.: Yes Procedure Operation Date: 03/16/20 10:30 Actual Procedures Left Knee arthroscopic irrigation and extensive debridement, partial synovectomy, removal calcium deposits, placement of drains(Left) - Herve Murguia MD Surgeon Herve Murguia MD [employer] Hammermill Operator None Estimated Blood Loss 3 Findings Consistent with Post-Op Diagnosis Grade 4 osteoarthritis medial compartment, extensive chondrocalcinosis all joint surfaces and synovium with multiple calcification deposits on multiple surfaces, degeneration medial lateral meniscus, chronic synovitis Specimens Joint fluid for Gram stain culture aerobic anaerobic and cell count differential crystal analysis Drains 2 Hemovac Anesthesia Type General Complications none Disposition Accompanied Patient To Recovery: No Indications 84-year-old female with left leg cellulitis several pressure sores that have staph MRSA infection by culture and gram-negative knee joint fluid aspirate from a tense knee joint effusion left knee. Radiographs demonstrate advanced osteoarthritis medial compartment grade 4. MRI demonstrates joint effusion but no inflammation in the muscle proximal to the knee joint. Patient has complex history of chronic left hip dislocation osteotomies of the femur. Patient has clinical cellulitis of the lower leg. Patient on IV antibiotics with elevated white cell count. Description of Procedure The patient was taken to the operating room and anesthetized under a general anesthetic. The patient was placed supine on the operating room table. A pneumatic tourniquet was placed about the left upper thigh. The knee exam demonstrated 20 degree flexion contracture limited flexion to about 100 degrees, small effusion no erythema. Swelling of the calf lower leg and foot consistent with some chronic cellulitis mainly around the pretibial calf area.. The left lower extremity was prepped and draped in sterile fashion. The arthroscopy was performed via inferior medial and inferior lateral arthroscopy portals. No additional portals were utilized. Leg was elevated no Esmarch was used the pneumatic tourniquet was raised to 325 mmHg. The following findings were noted . Upon placing the cannula prior to placing any of the fluid in the knee joint was drained and it was cloudy fluid mainly with multiple calcium deposits consistent with crystalline arthropathy of some type. Could be gout or pseudogout. No candace pus noted. Large amount of fluid was evacuated about 30 cc. Swabs were sent for culture and some of the fluid was sent for cell count differential and crystal analysis. The antibiotic solution with bacitracin was placed. The first 9 L had bacitracin and the bags. Intra-articular findings demonstrated extensive chondrocalcinosis of all the joint surfaces with caked on calcium deposits on the articular surfaces and all throughout the synovium and across the ligaments and menisci. There was grade 4 osteoarthritis medial compartment mainly anterior medial and diffuse synovitis throughout the knee joint with multiple callus deposits in the knee joint medial and lateral gutters suprapatellar pouch area. Cruciate ligaments were still intact and the medial meniscus had chronic degenerative tearing and fraying and the lateral meniscus had degenerative fraying and both menisci were caked with dense calcium deposits. A 4.5 full-radius resector blade was used to remove as much of the calcium as possible carefully removing the calcium off the joint surfaces and removing a good bit of the synovium embedded calcium deposits throughout the suprapatellar pouch medial lateral gutters and a partial synovectomy was performed of the markedly thickened inflamed synovial tissue. Light debridement was performed the cruciate ligaments and menisci to remove as much calcium and degenerative tissue as possible. The joint was thoroughly irrigated with multiple liters of fluid and then Hemovac drains were placed into both the medial and lateral portals and advanced into the suprapatellar pouch area sutured in place with nylon sutures. Xeroform dressings were placed followed by drain sponges 4 x 4's and ABDs. The tourniquet was let down and compressive webril and Kyle wrap dressing was placed from the foot to the upper thigh. Patient normal capillary refill to the extremity at the completion of the procedure and the patient tolerated the procedure well. I attest to the content of the Intraoperative Record and any orders documented therein. Any exceptions are noted below.
[2020-03-16] MEDS: ASCORBIC ACID 500 MG TAB PO SCH (13:22)
[2020-03-16] MEDS: ASPIRIN 81 MG ECTAB PO SCH (13:22)
[2020-03-16] MEDS: gemfibroziL 600 MG TAB PO SCH (13:22)
[2020-03-16] MEDS: CEROVITE ADV FORMULA TAB PO SCH (13:23)
[2020-03-16] MEDS: OMEGA-3 (PURIFIED FISH OIL) 1 GM CAP PO SCH (13:23)
[2020-03-16] MEDS: POLYETHYLENE (MIRALAX) 17 GM PACK PO SCH ×2 (13:24→21:58)
[2020-03-16] MEDS: CHOLECALCIFEROL 1,000 UNITS 25 MCG TAB PO SCH (13:24)
--- NOTE | 2020-03-16 13:29 | Anesthesiology Progress Note ---
Date of Service March 16, 2020 Anesthesia Post Procedure Vital Signs Vital Signs: Temp Pulse Pulse Pulse Resp BP Pulse Ox 03/16/20 12:25 36.7 C 85 14 150/61 H 94 03/16/20 12:15 36.7 C 83 12 184/75 H 98 03/16/20 12:05 82 15 170/70 H 99 03/16/20 11:55 36.2 C L 81 19 166/89 H 100 03/16/20 11:49 36.2 C L 84 12 175/77 H 100 03/16/20 10:16 36.8 C 20 L 93 H 142/67 H 96 03/16/20 07:35 36.9 C 82 18 129/67 94 03/16/20 03:04 37.3 C 91 H 18 129/65 92 03/15/20 23:24 37.2 C 92 H 18 130/66 92 Pain Intensity Left Leg: Pain Intensity: 3 Left Hip: Pain Intensity: 5 Transfer of Care Handoff Completed per policy Notes Mental Status: alert / awake / arousable and participated in evaluation Patient Amnestic to Procedure: Yes Nausea / Vomiting: adequately controlled Pain: adequately controlled Airway Patency, RR, SpO2: stable & adequate BP & HR: stable & adequate Hydration State: stable & adequate Anesthetic Complications: no major complications apparent
[2020-03-16] MEDS: INSULIN REGULAR 250 UNITS in SODIUM CHLORIDE 0.9% 247.5 ML IV SCH ×2 (13:31→14:38)
[2020-03-16] MEDS: INSULIN ASPART 100 UNITS/ML 3 ML PEN SC SCH ×3 (13:32→22:03)
[2020-03-16] MEDS: HEPARIN SOD 5,000 UNIT/0.5 ML VIAL SQ SCH ×2 (13:35→22:25)
[2020-03-16] MEDS: DAPTOmycin 300 MG in SYRINGE 0 ML IV SCH (13:39)
[2020-03-16] MEDS ORDERED: INSULIN HUMAN NPH SC SCH ×2 (17:00)
[2020-03-16] MEDS: GABAPENTIN 100 MG CAP PO SCH (22:26)
[2020-03-16] MEDS: MICONAZOLE NITRATE POWDER 43 GM EXT PRN (22:27)
[2020-03-17] MEDS: LEVOTHYROXINE SODIUM 75 MCG TABLET PO SCH (05:42)
[2020-03-17] MEDS: HYDROCODONE/ACETAMOPHEN 5/325MG TAB PO PRN (05:42)
[2020-03-17] MEDS: HEPARIN SOD 5,000 UNIT/0.5 ML VIAL SQ SCH ×3 (05:42→21:19)
[2020-03-17 07:04] LABS: Hematocrit (blood only) 27.1 % (37-47); Hemoglobin 8.5 g/dL (12.0-16.0); Mean Corpuscular Hgb Conc 31.4 g/dL (32-36); Mean Corpuscular Volume 95.8 fL (80-100); Mean Platelet Volume 10.8 fL (7.4-10.4); Platelet Count 217 K/uL (130-400); RDW Coefficient of Variation 14.7 % (11.5-14.5); RDW Standard Deviation 51.5 fL (36.4-46.3); Red Blood Count 2.83 M/uL (4.2-5.4); White Blood Count 11.01 K/uL (4.8-10.8)
[2020-03-17 07:40] LABS: BUN Creatinine Ratio 22.7 (10-20); Calcium 9.5 mg/dl (8.5-10.1); Creatinine Clr Calc Pharmacy 30.2 ml/min; Est GFR (African American) 33.7; Est GFR (Non-African American) 29.1; Potassium 4.4 mmol/L (3.5-5.1)
[2020-03-17] MEDS ORDERED: INSULIN HUMAN NPH SC SCH ×2 (08:00)
[2020-03-17] MEDS: ASCORBIC ACID 500 MG TAB PO SCH (08:35)
[2020-03-17] MEDS: ASPIRIN 81 MG ECTAB PO SCH (08:36)
[2020-03-17] MEDS: TORSEMIDE 20 MG TAB PO SCH ×2 (08:36→21:15)
[2020-03-17] MEDS: CEROVITE ADV FORMULA TAB PO SCH (08:36)
[2020-03-17] MEDS: OMEGA-3 (PURIFIED FISH OIL) 1 GM CAP PO SCH (08:36)
[2020-03-17] MEDS: gemfibroziL 600 MG TAB PO SCH (08:36)
[2020-03-17] MEDS: POLYETHYLENE (MIRALAX) 17 GM PACK PO SCH ×2 (08:37→21:16)
[2020-03-17] MEDS: INSULIN ASPART 100 UNITS/ML 3 ML PEN SC SCH ×4 (08:38→21:16)
[2020-03-17] MEDS: PIPERACILLIN/TAZOBACTAM 4.5 GM in DEXTROSE 5% 100 ML IV SCH (08:45)
--- NOTE | 2020-03-17 09:00 | Pharmacy Report ---
Pharmacy Glycemic Short Note 2 - Date of Service March 17, 2020 - Glycemic Short BSG Results (Last 24 hours): 03/16/20 03/16/20 03/16/20 10:11 11:50 12:49 Glucose POC Glucose 268 H 255 H 251 H 03/16/20 03/16/20 03/16/20 14:35 15:46 16:37 Glucose POC Glucose 270 H 242 H 224 H 03/16/20 03/16/20 03/16/20 17:42 19:42 20:50 Glucose POC Glucose 189 H 224 H 214 H 03/16/20 03/16/20 03/16/20 21:40 22:44 23:43 Glucose POC Glucose 192 H 147 H 127 H 03/17/20 03/17/20 03/17/20 00:46 01:42 02:42 Glucose POC Glucose 109 H 96 75 03/17/20 03/17/20 03/17/20 03:41 04:42 06:35 Glucose 96 POC Glucose 88 95 03/17/20 03/17/20 06:45 08:12 Glucose POC Glucose 109 H 118 H OUTPATIENT ANTIDIABETIC REGIMEN: * 70/30 60 units BID * A1c 6.6% 10/22/19 ASSESSMENT: 03/17 * Insulin infusion initiated yesterday due to persistently elevated BSGs, likely due to basal deficiency * Transitioned off of drip early this morning after multiple BSGs below 120 mg/dL * BSG of 118 mg/dL this morning * Basal deficiency has likely been corrected - will plan to dose insulin to correlate with home regimen (120 units/day) * Zosyn and doxycycline for treatment of cellulitis 03/16 * BSGs very poorly controlled yesterday, 250, 466, 372, 427, 375 mg/dL * Patient received 179 units of insulin (55 units of NPH, 124 units of pra ndial/correctional Novolog, and 20 units of IV regular insulin) * Patient to have left knee I&D today - knee aspirate growing gram-negative bacilli * Insulin infusion ordered, but not started prior to leaving for OR * Will give NPH 42 units SC x 1 now with additional 4 unit IV insulin bolus (received 5 units earlier this morning) prior to OR * BSG postoperatively is 255 mg/dL - will initiate insulin infusion * Continues on Zosyn + daptomycin 03/14 * Pt is a 84 yo female admitted with cellulitis * BSG initially low on admission up to 186 mg/dL this morning. Patient utilized 70/30 insulin 60 units BID. Initial parameters will be based on patients total outpatient dose as well as weight based dosing. PLAN FOR INPATIENT GLYCEMIC CONTROL: * Insulin infusion discontinued * Basal insulin * NPH 30 units SC BIDM * Bolus insulin * NovoLog per scale ACHS or Q6hrs while NPO * Correction Factor: 15 mg/dL/unit * Nutritional / Prandial insulin per carb ratio of 1 unit per 4 grams CHO consumed PLAN FOR DISCHARGE: * HbA1c of 6.8% suggests good outpatient glycemic control * Provided patient is not experiencing hypoglycemia as an outpatient - reasonable to continue outpatient regimen
--- NOTE | 2020-03-17 09:56 | Orthopedic Progress Note ---
Date of Service March 17, 2020 Assessment & Plan (1) Septic arthritis of knee: Septic arthritis left knee and gout left knee joint. Status post arthroscopic extensive debridement placement of drains. Continue on antibiotics. Dressing change and drain removal if minimal drainage tomorrow. Weightbearing as tolerated. Admission and Anticipated Discharge Date Admission Date: March 15, 2020 Subjective No complaints Review of Systems Review of Systems: Noncontributory Physical Exam Physical Exam: Kyle wrap intact no drainage on dressing capillary fill good in toes Results & Data ([facility]) Vital Signs (Past 12 Hours) Vital Signs Temp Pulse Pulse Resp BP Pulse Ox 03/17/20 07:20 36.5 C 77 18 106/63 97 03/17/20 04:31 79 108/69 03/17/20 02:45 36.8 C 76 16 99/57 L 97 03/16/20 23:20 37.3 C 80 16 105/58 L 95 Gram-negative septic left knee with Pseudomonas growing out and crystal analysis demonstrated gout
[2020-03-17] MEDS: DOXYCYCLINE HYCLATE 100 MG in DEXTROSE 5% 100 ML IV SCH ×2 (11:36→21:45)
[2020-03-17] MEDS: oxyCODONE HCL IR 5 MG TAB (IMMEDIATE RELEASE) PO PRN ×2 (11:36→20:51)
[2020-03-17] MEDS ORDERED: CIPROFLOXACIN 500 MG TAB PO SCH ×2 (13:45→18:00)
--- NOTE | 2020-03-17 13:50 | Hospitalist Progress Note ---
Date of Service March 17, 2020 Assessment & Plan (1) Knee effusion, left: Septic knee growing psuedomonas sensitive to Cipro - will dc IV zosyn and switch to po Cipro 500 mg bid Patient went to OR 03/16 for washout (2) Cellulitis: Cellulitis of bilateral lower extremities Cellulitis secondary to chronic venous stasis ulcers in the setting of chronic venous insufficiency Per the patient she has a longstanding history of chronic venous insufficiency with chronic venous stasis ulcers. Most recent echo in September 2018 demonstrated a left ventricular ejection fraction of 60 to 65% with normal RVSP, indicating the lower extremity swelling is most likely from venous insufficiency -Will change daptomycin to doxy to cover possible MRSA, Cipro as above - ngtd -Consulted wound care nurse -Change [place] to oxycodone for better pain control - No DVT on ultrasound of left lower leg (3) Left leg pain: Xray 03/15 for increasing pain from knee to hip - shows possible stress fracture and knee effusion, follow up MRI shows fracture to be old Pain management as above Orthopedics consulted (4) Diabetes mellitus: patient continued to be hyperglycemic overnight bsgs 300-400 with need for insulin gtt - now sugars better controlled and insulin off Holding home meds -Glycemic consult (5) Chronic kidney disease, stage 3: Patient follows with Dr. Bhatt for chronic kidney disease. Baseline creatinine appears to be 1.5 - 1.8. -Avoid nephrotoxic med (6) Hypertension: -Continue torsemide (7) Peripheral neuropathy: -PT OT ordered -Fall precautions -Continue home gabapentin (8) Hypothyroidism: -Continue levothyroxine 75 mcg p.o. every morning (9) Hyperlipidemia: -Continue gemfibrozil (10) Generalized osteoarthritis of multiple sites: -PT OT -Pain control (11) Edema: -torsemide as above (12) Afib: Patient had 1 episode of documented atrial fibrillation during an admission September 2018, she was very acutely ill at that time. She spontaneously converted with 1 dose of IV Lopressor and has had no further events after that. She was on metoprolol 25 mg daily and was not started on anticoagulation and maintain normal sinus rhythm. Subsequently Toprol was stopped and she has since had no episodes of atrial fibrillation. -Monitor for development of A. fib (13) Anemia: of chronic disease. Stable, baseline appears to be around 8.5 - 11 (14) Pressure ulcer: Stage 3 Pressure ulcer of left & right medial buttock, POA Wound care nurse consulted Turn and reposition frequently (15) DVT prophylaxis: heparin subq Admission and Anticipated Discharge Date Admission Date: March 15, 2020 Supervising Physician Co-Signing Physician Notes chart reviewed and case d/w S Liliana PATEL. agree w above Subjective Ms. Mike is having a lot of pain at her surgical site but otherwise has no complaints Review of Systems Constitutional: no fever and no chills Respiratory: no cough and no dyspnea Cardiovascular: no chest pain and no palpitations Gastrointestinal: no abdominal pain and no early satiety Genitourinary: no dysuria and no urinary hesitancy Musculoskeletal: as per Subjective / HPI; no back pain Integumentary: no rash Physical Exam Physical Exam: General: no distress Eyes: normal inspection, PERLL Respiratory: chest non tender, clear to auscultation, normal breath sounds, no respiratory distress, no accessory muscle use Cardiac: regular rate and rhythm, no rub or gallop, no murmur, +2 pitting edema lower extremities GI/: active bowel sounds, no abd pain or tenderness, soft, non distended Extremities: normal range of motion, normal strength, non tender Neuro/Psych: alert and oriented x 3, normal mood and affect Skin: normal color, dry Results & Data Results & Data ([facility]) Vital Signs (Past 12 Hours) Vital Signs Temp Pulse Pulse Resp BP Pulse Ox 03/17/20 07:20 36.5 C 77 18 106/63 97 03/17/20 04:31 79 108/69 03/17/20 02:45 36.8 C 76 16 99/57 L 97 PG Care Time/CCT Total # of Minutes Spent Total Time Spent with Patient: Total time spent is greater than 50% in physician practice coordinator rdination of care (as documented) at patient's floor/unit and/or counseling patient: Coding Level of Care Code 75946 Subseq Hosp Care Lvl 3 Diagnoses Knee effusion, left M25.462 Cellulitis L03.90 Left leg pain M79.605 Diabetes mellitus E11.9 Chronic kidney disease, stage 3 N18.3 Hypertension I10 Hypertension type: essential hypertension Peripheral neuropathy G62.9 Hypothyroidism E03.9 Hyperlipidemia E78.5 Generalized osteoarthritis of multiple sites M15.9 Edema R60.9 Afib I48.91 Atrial fibrillation type: unspecified Anemia D64.9 Pressure ulcer L89.90 DVT prophylaxis Z29.9 (1) Afib Atrial fibrillation type: unspecified Qualified Code(s): I48.91 - Unspecified atrial fibrillation (2) Hypertension Hypertension type: essential hypertension Qualified Code(s): I10 - Essential (primary) hypertension
[2020-03-17] MEDS: INSULIN HUMAN NPH SC SCH (17:54)
[2020-03-17] MEDS: ACETAMINOPHEN 325 MG TAB PO PRN (18:31)
[2020-03-17] MEDS: GABAPENTIN 100 MG CAP PO SCH (21:16)
[2020-03-18] MEDS: LEVOTHYROXINE SODIUM 75 MCG TABLET PO SCH (06:00)
[2020-03-18] MEDS: oxyCODONE HCL IR 5 MG TAB (IMMEDIATE RELEASE) PO PRN ×3 (06:00→19:44)
[2020-03-18] MEDS: HEPARIN SOD 5,000 UNIT/0.5 ML VIAL SQ SCH ×3 (06:00→21:37)
[2020-03-18 07:02] LABS: Basophils # (auto) 0.04 K/uL (0-0.2); Basophils % (auto) 0.4 %; Eosinophils # (auto) 0.21 K/uL (0-0.5); Hematocrit (blood only) 28.8 % (37-47); Hemoglobin 9.1 g/dL (12.0-16.0); Lymphocytes % (auto) 22.1 %; Mean Corpuscular Hgb Conc 31.6 g/dL (32-36); Mean Platelet Volume 10.7 fL (7.4-10.4); Monocytes # (auto) 1.04 K/uL (0.11-0.59); Neutrophils % (auto) 64.5 %; Platelet Count 236 K/uL (130-400); RDW Coefficient of Variation 14.9 % (11.5-14.5); RDW Standard Deviation 51.5 fL (36.4-46.3); Red Blood Count 3.03 M/uL (4.2-5.4); White Blood Count 10.39 K/uL (4.8-10.8)
[2020-03-18 07:23] LABS: BUN Creatinine Ratio 29.7 (10-20); Calcium 9.1 mg/dl (8.5-10.1); Creatinine Clr Calc Pharmacy 26.2 ml/min; Est GFR (African American) 28.3; Est GFR (Non-African American) 24.4; Potassium 4.2 mmol/L (3.5-5.1)
--- NOTE | 2020-03-18 08:55 | Orthopedic Progress Note ---
Date of Service March 18, 2020 Assessment & Plan (1) Septic arthritis of knee: POD #2,Left septic knee I&D PT/ OT- WBAT w walker Ice/ elevate prn. Pain control. DVT proph- ASA and heparin Blood cultures negative Wound culture with Pseudomonas A.- On cipro which is sensitive. Await finals and definitive recommendations. Dressing changed and drain pulled this AM by me. Disposition- patient would like to go home w Medical care per primary team. Admission and Anticipated Discharge Date Admission Date: March 15, 2020 Subjective POD #2, Still in quite a bit amount of pain. States she is asking for pain meds appropriately. Denies SOB, CP, N/V, dizziness. Hbg 9.1 this AM Physical Exam Physical Exam: A&Ox3. VSS. Left Knee dressings c/d/i. Drain in place. Toes/ ankle mobile. Diffusely tender left LE. Dressings removed. Drain sutures cut w sterile scissors and drain pulled with no problem. Portal sutures were in tact, skin edges approximated well. Mild bloody drainage from lateral portal that was stopped with pressure. New, dry, sterile dressing, and JO applied to Left knee/ LE. ROM at knee deferred due to pain. N/V+. Results & Data ([facility]) Vital Signs (Past 12 Hours) Vital Signs Temp Pulse Pulse Resp BP Pulse Ox 03/18/20 07:41 36.7 C 85 16 126/69 99 03/18/20 03:08 36.9 C 93 H 16 112/57 L 98 03/17/20 23:52 38.4 C H 99 H 18 106/50 L 94
--- NOTE | 2020-03-18 09:18 | Pharmacy Report ---
Pharmacy Glycemic Short Note 2 - Date of Service March 18, 2020 - Glycemic Short BSG Results (Last 24 hours): 03/17/20 03/17/20 03/17/20 12:21 17:18 20:43 Glucose POC Glucose 152 H 258 H 272 H 03/18/20 03/18/20 06:28 08:09 Glucose 179 H POC Glucose 198 H OUTPATIENT ANTIDIABETIC REGIMEN: * 70/30 60 units BID * A1c 6.6% 10/22/19 ASSESSMENT: 03/18 * BSGs increased throughout the day yesterday (118, 152, 258, and 272 mg/dL) * Patient received 60 units of basal (NPH) and 74 units of prandial/correctional Novolog * Fasting BSG of 198 mg/dL this morning * Will plan to increase NPH starting this morning and tighten Novolog correction factor * NPH order missing from JUN for AM dose and wasn't discovered until late morning - NPH ordered for ~1100 * Lunch BSG of 350 mg/dL - likely due to delayed NPH administration (will cover with 5 unit IV bolus and temporarily loosen CF as to not overcorrect) 03/17 * Insulin infusion initiated yesterday due to persistently elevated BSGs, likely due to basal deficiency * Transitioned off of drip early this morning after multiple BSGs below 120 mg/dL * BSG of 118 mg/dL this morning * Basal deficiency has likely been corrected - will plan to dose insulin to correlate with home regimen (120 units/day) * Zosyn and doxycycline for treatment of cellulitis 03/16 * BSGs very poorly controlled yesterday, 250, 466, 372, 427, 375 mg/dL * Patient received 179 units of insulin (55 units of NPH, 124 units of prandial/correctional Novolog, and 20 units of IV regular insulin) * Patient to have left knee I&D today - knee aspirate growing gram-negative b acilli * Insulin infusion ordered, but not started prior to leaving for OR * Will give NPH 42 units SC x 1 now with additional 4 unit IV insulin bolus (received 5 units earlier this morning) prior to OR * BSG postoperatively is 255 mg/dL - will initiate insulin infusion * Continues on Zosyn + daptomycin 03/14 * Pt is a 84 yo female admitted with cellulitis * BSG initially low on admission up to 186 mg/dL this morning. Patient utilized 70/30 insulin 60 units BID. Initial parameters will be based on patients total outpatient dose as well as weight based dosing. PLAN FOR INPATIENT GLYCEMIC CONTROL: * Insulin infusion discontinued * Basal insulin - increase * NPH 42 units SC x 1 this morning * NPH 30-42 units SC BIDM thereafter (see EHR for details) * Bolus insulin - tighten correction factor * NovoLog per scale ACHS or Q6hrs while NPO * Correction Factor: 12 mg/dL/unit * Nutritional / Prandial insulin per carb ratio of 1 unit per 4 grams CHO consumed PLAN FOR DISCHARGE: * HbA1c of 6.8% suggests good outpatient glycemic control * Provided patient is not experiencing hypoglycemia as an outpatient - reasonable to continue outpatient regimen
[2020-03-18] MEDS: TORSEMIDE 20 MG TAB PO SCH ×2 (09:31→21:36)
[2020-03-18] MEDS: gemfibroziL 600 MG TAB PO SCH (09:32)
[2020-03-18] MEDS: ASPIRIN 81 MG ECTAB PO SCH (09:32)
[2020-03-18] MEDS: ASCORBIC ACID 500 MG TAB PO SCH (09:33)
[2020-03-18] MEDS: CEROVITE ADV FORMULA TAB PO SCH (09:33)
[2020-03-18] MEDS: POLYETHYLENE (MIRALAX) 17 GM PACK PO SCH ×2 (09:33→19:38)
[2020-03-18] MEDS: OMEGA-3 (PURIFIED FISH OIL) 1 GM CAP PO SCH (09:33)
[2020-03-18] MEDS: CHOLECALCIFEROL 1,000 UNITS 25 MCG TAB PO SCH (09:34)
[2020-03-18] MEDS: INSULIN ASPART 100 UNITS/ML 3 ML PEN SC SCH ×4 (09:37→21:34)
[2020-03-18] MEDS ORDERED: INSULIN HUMAN NPH SC ONE (10:15)
[2020-03-18] MEDS: DOXYCYCLINE HYCLATE 100 MG in DEXTROSE 5% 100 ML IV SCH ×2 (11:01→21:43)
[2020-03-18] MEDS: INSULIN HUMAN NPH SC SCH ×2 (11:14→18:15)
[2020-03-18] MEDS: INSULIN HUMAN REGULAR PER UNIT 5 UNITS in SYRINGE 4.95 ML IV ONE ×2 (12:59→14:35)
--- NOTE | 2020-03-18 13:31 | Hospitalist Progress Note ---
Date of Service March 18, 2020 Assessment & Plan (1) Knee effusion, left: Septic knee growing psuedomonas sensitive to Cipro - will dc IV zosyn and switch to po Cipro 500 mg daily for renal dosing Patient went to OR 03/16 for washout Pain control with oxycodone (2) Cellulitis: Cellulitis of bilateral lower extremities Cellulitis secondary to chronic venous stasis ulcers in the setting of chronic venous insufficiency Per the patient she has a longstanding history of chronic venous insufficiency with chronic venous stasis ulcers. Most recent echo in September 2018 demonstrated a left ventricular ejection fraction of 60 to 65% with normal RVSP, indicating the lower extremity swelling is most likely from venous insufficiency -Will change daptomycin to doxy to cover possible MRSA, Cipro as above -BC ngtd -Consulted wound care nurse - No DVT on ultrasound of left lower leg (3) Left leg pain: Xray 03/15 for increasing pain from knee to hip - shows possible stress fracture and knee effusion, follow up MRI shows fracture to be old Pain management as above Orthopedics consulted (4) Diabetes mellitus: Hyperglycemic again today Holding home meds -Pharmacy Glycemic consult (5) Chronic kidney disease, stage 3: Patient follows with Dr. Bhatt for chronic kidney disease. Baseline creatinine appears to be 1.5 - 1.8. Creat 1.87 today -Avoid nephrotoxic med (6) Hypertension: -Continue torsemide (7) Peripheral neuropathy: -PT OT ordered -Fall precautions -Continue home gabapentin (8) Hypothyroidism: -Continue levothyroxine 75 mcg p.o. every morning (9) Hyperlipidemia: -Continue gemfibrozil (10) Generalized osteoarthritis of multiple sites: -PT OT -Pain control (11) Edema: -torsemide as above (12) Afib: Patient had 1 episode of documented atrial fibrillation during an admission September 2018, she was very acutely ill at that time. She spontaneously converted with 1 dose of IV Lopressor and has had no further events after that. She was on metoprolol 25 mg daily and was not started on anticoagulation and maintain normal sinus rhythm. Subsequently Toprol was stopped and she has since had no episodes of atrial fibrillation. -Monitor for development of A. fib (13) Anemia: of chronic disease. Stable, baseline appears to be around 8.5 - 11 (14) Pressure ulcer: Stage 3 Pressure ulcer of left & right medial buttock, POA Wound care nurse consulted Turn and reposition frequently (15) DVT prophylaxis: heparin subq Admission and Anticipated Discharge Date Admission Date: March 15, 2020 Supervising Physician Co-Signing Physician Notes chart reviewed and case d/w S Liliana PATEL. agree w above Subjective Ms. Mike is tired and having quite a bit of pain in her knee. She was febrile last evening but not today. Feels cold but no body aches Review of Systems Constitutional: as per Subjective / HPI Respiratory: no cough and no dyspnea Gastrointestinal: no abdominal pain, no nausea and no vomiting Genitourinary: no dysuria and no urinary hesitancy Musculoskeletal: no back pain and no joint pain Integumentary: no rash Physical Exam Physical Exam: General: no distress Eyes: normal inspection, PERLL Respiratory: chest non tender, clear to auscultation, normal breath sounds, no respiratory distress, no accessory muscle use Cardiac: regular rate and rhythm, no rub or gallop, no murmur, no edema, no jvd GI/: active bowel sounds, no abd pain or tenderness, soft, non distended Extremities: normal range of motion, normal strength, non tender Neuro/Psych: drowsy and oriented x 3, normal mood and affect Skin: normal color, dry Results & Data Results & Data ([facility]) Vital Signs (Past 12 Hours) Vital Signs Temp Pulse Pulse Resp BP Pulse Ox 03/18/20 07:41 36.7 C 85 16 126/69 99 03/18/20 03:08 36.9 C 93 H 16 112/57 L 98 PG Care Time/CCT Total # of Minutes Spent Total Time Spent with Patient: Total time spent is greater than 50% in coordination of care (as documented) at patient's floor/unit and/or counseling patient: Coding Level of Care Code 83514 Subseq Hosp Care Lvl 2 Diagnoses Knee effusion, left M25.462 Cellulitis L03.90 Left leg pain M79.605 Diabetes mellitus E11.9 Chronic kidney disease, stage 3 N18.3 Hypertension I10 Hypertension type: essential hypertension Peripheral neuropathy G62.9 Hypothyroidism E03.9 Hyperlipidemia E78.5 Generalized osteoarthritis of multiple sites M15.9 Edema R60.9 Afib I48.91 Atrial fibrillation type: unspecified Anemia D64.9 Pressure ulcer L89.90 DVT prophylaxis Z29.9 (1) Afib Atrial fibrillation type: unspecified Qualified Code(s): I48.91 - Unspecified atrial fibrillation (2) Hypertension Hypertension type: essential hypertension Qualified Code(s): I10 - Essential (primary) hypertension
[2020-03-18] MEDS ORDERED: INSULIN HUMAN NPH SC SCH (17:00)
[2020-03-18] MEDS ORDERED: INSULIN HUMAN REGULAR PER UNIT 5 UNITS in SYRINGE 4.95 ML IV ONE (17:30)
[2020-03-18] MEDS ORDERED: CIPROFLOXACIN 500 MG TAB PO SCH (18:00)
[2020-03-18] MEDS: GABAPENTIN 100 MG CAP PO SCH (21:36)
[2020-03-18] MEDS: ACETAMINOPHEN 325 MG TAB PO PRN (23:27)
[2020-03-19] MEDS: INSULIN ASPART 100 UNITS/ML 3 ML PEN SC SCH ×7 (00:24→23:32)
[2020-03-19] MEDS: oxyCODONE HCL IR 5 MG TAB (IMMEDIATE RELEASE) PO PRN ×3 (04:29→17:56)
[2020-03-19] MEDS: LEVOTHYROXINE SODIUM 75 MCG TABLET PO SCH (05:29)
[2020-03-19] MEDS: HEPARIN SOD 5,000 UNIT/0.5 ML VIAL SQ SCH ×3 (05:29→20:56)
--- NOTE | 2020-03-19 06:37 | Orthopedic Progress Note ---
Date of Service March 19, 2020 Assessment & Plan (1) Septic arthritis of knee: POD #3 s/p Left septic knee I&D PT/ OT- WBAT w walker Ice/ elevate prn. Pain control. DVT proph- ASA and heparin Wound culture with Pseudomonas A.- On cipro which is sensitive. Await finals and definitive recommendations. Disposition- patient would like to go home w Medical care per primary team. Admission and Anticipated Discharge Date Admission Date: March 15, 2020 Subjective pod #3 Review of Systems Review of Systems: Noncontributory Constitutional: as per Subjective / HPI Respiratory: no cough and no dyspnea Cardiovascular: no chest pain Gastrointestinal: no nausea and no vomiting Physical Exam Physical Exam: Vital Signs Temp 37.5 C 03/19/20 04:20 Pulse 91 H 03/19/20 04:20 Resp 16 03/19/20 04:20 BP 116/67 03/19/20 04:20 Pulse Ox 96 03/19/20 04:20 Intake & Output 03/18/20 03/18/20 03/19/20 06:59 18:59 06:59 Intake Total 710 / 2160 610 / 960 350 / 960 Output Total 1725 / 2575 1500 / 2900 1400 / 2900 Balance -1015 / -415 -890 / -1940 -1050 / -1940 Weight 99.9 kg Intake: IV 110 / 340 110 / 220 110 / 220 Vibramycin 100 mg In D5 100 ml 110 / 220 110 / 220 110 / 220 @ 50 mls/hr IV Q12H [facility] Rx#: [id number] Oral 600 / 1820 500 / 740 240 / 740 Output: Urine Amount ([place]) 1725 / 2575 1500 / 2900 1400 / 2900 Bhatt/Indwelli ng 1725 / 2575 1500 / 2900 1400 / 2900 Drain Output 0 / 0 Left Knee Hemo vac #1 0 / 0 Constitutional: WD/WN, vitals as above no acute distress Musculoskeletal: Left Leg: Kyle dressing was taken down, she has mild effusion present, portals well approximated with nylon sutures. neurovascular sensory intact grossly, +2 dorsalis pedis pulse, venous stasis left lower extremity and cellulitis. she has pain with ROM Results & Data ([facility]) Vital Signs (Past 12 Hours) Vital Signs Temp Pulse Resp BP Pulse Ox 03/19/20 04:20 37.5 C 91 H 16 116/67 96 03/19/20 00:27 37.8 C H 99 H 95 03/18/20 23:14 39.3 C H 108 H 18 126/66 90 03/18/20 19:46 95 Laboratory Results Laboratory Results WBC 10.39 K/uL (4.8-10.8) 03/18/20 06:28 RBC 3.03 M/uL (4.2-5.4) L 03/18/20 06:28 Hgb 9.1 g/dL (12.0-16.0) L 03/18/20 06:28 Hct 28.8 % (37-47) L 03/18/20 06:28 MCV 95.0 fL (80-100) 03/18/20 06:28 MCH 30.0 pg (25-34) 03/18/20 06:28 MCHC 31.6 g/dL (32-36) L 03/18/20 06:28 RDW Std Deviation 51.5 fL (36.4-46.3) H 03/18/20 06:28 RDW Coeff of Brian 14.9 % (11.5-14.5) H 03/18/20 06:28 Plt Count 236 K/uL (130-400) 03/18/20 06:28 MPV 10.7 fL (7.4-10.4) H 03/18/20 06:28 Immature Gran % (Auto) 1.0 % 03/18/20 06:28 Neut % (Auto) 64.5 % 03/18/20 06:28 Lymph % (Auto) 22.1 % 03/18/20 06:28 [place] % (Auto) 10.0 % 03/18/20 06:28 Eos % (Auto) 2.0 % 03/18/20 06:28 Baso % (Auto) 0.4 % 03/18/20 06:28 Neut # (Auto) 6.70 K/uL (1.4-6.5) H 03/18/20 06:28 Lymph # (Auto) 2.30 K/uL (1.2-3.4) 03/18/20 06:28 [place] # (Auto) 1.04 K/uL (0.11-0.59) H 03/18/20 06:28 Eos # (Auto) 0.21 K/uL (0-0.5) 03/18/20 06:28 Baso # (Auto) 0.04 K/uL (0-0.2) 03/18/20 06:28 Immature Gran # (Auto) 0.10 K/uL (0.00-0.02) H 03/18/20 06:28 ESR 80 mm/hr (0-21) H 03/16/20 05:58 PT 12.4 Seconds (9.0-12.0) H 03/13/20 23:38 INR 1.2 (0.9-1.1) H 03/13/20 23:38 APTT 30.3 Seconds (21.0-31.0) 03/13/20 23:38 PTT Ratio 1.1 03/13/20 23:38 Sodium 136 mmol/L (136-145) 03/18/20 06:28 Potassium 4.2 mmol/L (3.5-5.1) 03/18/20 06:28 Chloride 102 mmol/L (98-107) 03/18/20 06:28 Carbon Dioxide 29 mmol/L (21-32) 03/18/20 06:28 Anion Gap 6.0 (3-11) 03/18/20 06:28 BUN 56 mg/dl (7-18) H D 03/18/20 06:28 Creatinine 1.87 mg/dl (0.6-1.2) H 03/18/20 06:28 Est Cr Clr Drug Dosing 26.2 ml/min 03/18/20 06:28 Est GFR ( Amer) 28.3 03/18/20 06:28 Est GFR (Non-Af Amer) 24.4 03/18/20 06:28 BUN/Creatinine Ratio 29.7 (10-20) H 03/18/20 06:28 Glucose 179 mg/dl (70-99) H 03/18/20 06:28 POC Glucose 170 mg/dl (70-99) H 03/19/20 03:49 Estimat Average Glucose 148 mg/dl 03/15/20 05:33 Hemoglobin A1c 6.8 % (4.5-5.6) H 03/15/20 05:33 Lactate 1.0 mmol/L (0.4-2.0) 03/13/20 23:38 Calcium 9.1 mg/dl (8.5-10.1) 03/18/20 06:28 Total Bilirubin 0.6 mg/dl (0.2-1) 03/15/20 05:33 AST 14 U/L (15-37) L 03/15/20 05:33 ALT 11 U/L (12-78) L 03/15/20 05:33 Alkaline Phosphatase 68 U/L (45-117) 03/15/20 05:33 C-Reactive Protein 35.60 mg/dl (0-0.29) H 03/16/20 05:58 Total Protein 6.8 gm/dl (6.4-8.2) 03/15/20 05:33 Albumin 2.4 gm/dl (3.4-5.0) L 03/15/20 05:33 Globulin 4.4 gm/dl (2.5-4.0) H 03/15/20 05:33 Albumin/Globulin Ratio 0.5 (0.9-2) L 03/15/20 05:33 Beta-Hydroxybutyric Acd 3.23 mg/dl (0.2-2.81) H 03/16/20 05:58 TSH 1.800 uIu/ml (0.300-4.500) 03/13/20 23:38 Urine Color Yellow 03/14/20 02:54 Urine Appearance Clear (Clear) 03/14/20 02:54 Urine pH 7.0 (4.5-7.5) 03/14/20 02:54 Ur Specific [place] 1.016 (1.000-1.030) 03/14/20 02:54 Urine Protein Negative (Negative) 03/14/20 02:54 Urine Glucose (UA) Negative (Negative) 03/14/20 02:54 Urine Ketones Negative (Negative) 03/14/20 02:54 Urine Blood Negative (Negative) 03/14/20 02:54 Urine Nitrite Negative (Negative) 03/14/20 02:54 Urine Bilirubin Negative (Negative) 03/14/20 02:54 Urine Urobilinogen Negative (Negative) 03/14/20 02:54 Ur Leukocyte Esterase 1+ (Negative) H 03/14/20 02:54 Urine WBC (Auto) 1-5 /hpf (0-5) 03/14/20 02:54 Urine RBC (Auto) 0-4 /hpf (0-4) 03/14/20 02:54 U Hyaline Cast (Auto) 1-5 /lpf (0-5) 03/14/20 02:54 U Epithel Cells (Auto) >30 /lpf (0-5) H 03/14/20 02:54 Urine Bacteria (Auto) Negative (Negative) 03/14/20 02:54 Synovial Source Cancelled 03/16/20 11:09 Synovial Color Cancelled 03/16/20 11:09 Synovial Appearance Cancelled 03/16/20 11:09 Synovial WBC Cancelled 03/16/20 11:09 Synovial RBC Cancelled 03/16/20 11:09 Synov Polynuclear WBCs Cancelled 03/16/20 11:09 Synov Mononuclear WBCs Cancelled 03/16/20 11:09 Synovial Other Cells Cancelled 03/16/20 11:09 Synovial Polynuclear % Cancelled 03/16/20 11:09 Synovial Mononuclear % Cancelled 03/16/20 11:09 Synovial Crystals Cancelled 03/16/20 11:09 Nasal Screen MRSA (PCR) Negative (Negative) 03/14/20 02:54 COVID-19 Eval Order Covid19 [facility]Now [facility] 03/19/20 01:15 SARS-CoV-2 Ag (Rapid) Negative (Negative) 03/14/20 02:13 SARS-CoV-2, RNA, NAAT NEGATIVE (NEGATIVE) 03/19/20 01:15 Microbiology 03/13/20 23:38 Blood Aerobic Blood Culture - Final No growth in Aerobic bottle after 5 days. 03/13/20 23:38 Blood Anaerobic Blood Culture - Final No growth in Anaerobic bottle after 5 days. 03/13/20 23:14 Blood Aerobic Blood Culture - Final No growth in Aerobic bottle after 5 days. 03/13/20 23:14 Blood Anaerobic Blood Culture - Final No growth in Anaerobic bottle after 5 days. 03/15/20 15:54 Knee,Left Gram Stain - Final 03/15/20 15:54 Knee,Left Aerobic and Anaerobic Culture - Preliminary Pseudomonas aeruginosa 03/16/20 10:59 Joint Fluid,Knee Gram Stain - Final 03/16/20 10:59 Joint Fluid,Knee Aerobic and Anaerobic Culture - Preliminary Pseudomonas aeruginosa 03/14/20 05:32 Blood Aerobic Blood Culture - Preliminary No growth in Aerobic bottle after 48 hours. 03/14/20 05:32 Blood Anaerobic Blood Culture - Final 03/14/20 05:41 Blood Aerobic Blood Culture - Preliminary No growth in Aerobic bottle after 48 hours. 03/14/20 05:41 Blood Anaerobic Blood Culture - Final
[2020-03-19 08:28] LABS: Basophils # (auto) 0.03 K/uL (0-0.2); Basophils % (auto) 0.2 %; Eosinophils # (auto) 0.19 K/uL (0-0.5); Eosinophils % (auto) 1.5 %; Hematocrit (blood only) 27.1 % (37-47); Hemoglobin 8.7 g/dL (12.0-16.0); Immature Granulocytes # (auto) 0.13 K/uL (0.00-0.02); Lymphocytes # (auto) 2.35 K/uL (1.2-3.4); Lymphocytes % (auto) 18.3 %; Mean Corpuscular Hemoglobin 30.2 pg (25-34); Mean Corpuscular Hgb Conc 32.1 g/dL (32-36); Mean Corpuscular Volume 94.1 fL (80-100); Mean Platelet Volume 10.2 fL (7.4-10.4); Monocytes # (auto) 1.34 K/uL (0.11-0.59); Monocytes % (auto) 10.4 %; Neutrophils # (auto) 8.79 K/uL (1.4-6.5); Neutrophils % (auto) 68.6 %; Platelet Count 258 K/uL (130-400); RDW Coefficient of Variation 14.8 % (11.5-14.5); RDW Standard Deviation 50.6 fL (36.4-46.3); Red Blood Count 2.88 M/uL (4.2-5.4); White Blood Count 12.83 K/uL (4.8-10.8)
[2020-03-19 09:12] LABS: Calcium 9.1 mg/dl (8.5-10.1); Creatinine Clr Calc Pharmacy 27.2 ml/min; Est GFR (African American) 29.6; Est GFR (Non-African American) 25.6; Potassium 4.2 mmol/L (3.5-5.1)
[2020-03-19] MEDS: INSULIN HUMAN NPH SC SCH ×2 (10:11→17:48)
[2020-03-19] MEDS: TORSEMIDE 20 MG TAB PO SCH ×2 (10:13→20:55)
[2020-03-19] MEDS: ASCORBIC ACID 500 MG TAB PO SCH (10:14)
[2020-03-19] MEDS: ASPIRIN 81 MG ECTAB PO SCH (10:14)
[2020-03-19] MEDS: gemfibroziL 600 MG TAB PO SCH (10:15)
[2020-03-19] MEDS: OMEGA-3 (PURIFIED FISH OIL) 1 GM CAP PO SCH (10:15)
[2020-03-19] MEDS: CEROVITE ADV FORMULA TAB PO SCH (10:15)
[2020-03-19] MEDS: POLYETHYLENE (MIRALAX) 17 GM PACK PO SCH ×2 (10:15→20:55)
[2020-03-19] MEDS: DOXYCYCLINE HYCLATE 100 MG CAP PO SCH ×2 (10:23→20:55)
--- NOTE | 2020-03-19 12:14 | Hospitalist Progress Note ---
Date of Service March 19, 2020 Assessment & Plan (1) Knee effusion, left: Septic knee growing psuedomonas sensitive to Cipro - increased Cipro to 750 mg daily dosing given persistent fevers - renal dosing Patient went to [place] 03/16 for washout Pain control with oxycodone Inflammatory markers trending down (2) Cellulitis: Cellulitis of bilateral lower extremities Cellulitis secondary to chronic venous stasis ulcers in the setting of chronic venous insufficiency Per the patient she has a longstanding history of chronic venous insufficiency with chronic venous stasis ulcers. Most recent echo in September 2018 demonstrated a left ventricular ejection fraction of 60 to 65% with normal RVSP, indicating the lower extremity swelling is most likely from venous insufficiency -Initially on IV daptomycin but switched to doxy for continued MRSA MRSA coverage, cipro as above - ngtd -Consulted wound care nurse - No DVT on ultrasound of left lower leg (3) Left leg pain: Xray 03/15 for increasing pain from knee to hip - shows possible stress fracture and knee effusion, follow up MRI shows fracture to be old Pain management as above Orthopedics consulted (4) Diabetes mellitus: Continues to have intermittent severe hyperglycemia - sugars in the 300s today. Holding home meds -Pharmacy Glycemic consult (5) Chronic kidney disease, stage 3: Patient follows with Dr. Bhatt for chronic kidney disease. Baseline creatinine appears to be 1.5 - 1.8. Creat 1.8 today -Avoid nephrotoxic med (6) Hypertension: -Continue torsemide (7) Peripheral neuropathy: -PT OT ordered -Fall precautions -Continue home gabapentin (8) Hypothyroidism: -Continue levothyroxine 75 mcg p.o. every morning (9) Hyperlipidemia: -Continue gemfibrozil (10) Generalized osteoarthritis of multiple sites: -PT OT -Pain control (11) Edema: -torsemide as above (12) Afib: Patient had 1 episode of documented atrial fibrillation during an admission September 2018, she was very acutely ill at that time. She spontaneously converted with 1 dose of IV Lopressor and has had no further events after that. She was on metoprolol 25 mg daily and was not started on anticoagulation and maintain normal sinus rhythm. Subsequently Toprol was stopped and she has since had no episodes of atrial fibrillation. -Monitor for development of A. fib (13) Anemia: of chronic disease. Stable, baseline appears to be around 8.5 - 11 (14) Pressure ulcer: Stage 3 Pressure ulcer of left & right medial buttock, POA Wound care nurse consulted Turn and reposition frequently (15) DVT prophylaxis: heparin subq Dispo: therapy evals recommending rehab but patient thus far refusing and insisting on home health. Will need to follow PT/OT notes and discuss again prior to discharge. For today as she is continuing to spike fevers she will stay in the hospital Admission and Anticipated Discharge Date Admission Date: March 15, 2020 Supervising Physician Co-Signing Physician Notes chart reviewed and case d/w S Liliana PATEL. agree w above Subjective Ms. Mike is feeling very fatigued today. Her knee is painful with movement. She was febrile again overnight Review of Systems Constitutional: + fever; no chills and no body aches Respiratory: no cough, no dyspnea and no wheezing Cardiovascular: no chest pain and no palpitations Gastrointestinal: no abdominal pain, no nausea and no vomiting Genitourinary: no dysuria and no urinary hesitancy Musculoskeletal: as per Subjective / HPI; no back pain Integumentary: no rash Physical Exam Physical Exam: General: no distress Eyes: normal inspection, PERLL Respiratory: chest non tender, clear to auscultation, normal breath sounds, no respiratory distress, no accessory muscle use Cardiac: regular rate and rhythm, no rub or gallop, no murmur, +2 pitting edema lower extremities. GI/: active bowel sounds, no abd pain or tenderness, soft, non distended Extremities: normal range of motion, normal strength, non tender Neuro/Psych: alert and oriented x 3, normal mood and affect Skin: normal color, dry, improving lower leg erythema Results & Data Results & Data ([facility]) Vital Signs (Past 12 Hours) Vital Signs Temp Pulse Resp BP Pulse Ox 03/19/20 07:02 36.7 C 14 L 144/64 H 96 03/19/20 04:20 37.5 C 91 H 16 116/67 96 03/19/20 00:27 37.8 C H 99 H 95 PG Care Time/CCT Total # of Minutes Spent Total Time Spent with Patient: Total time spent is greater than 50% in coordination of care (as documented) at patient's floor/unit and/or counseling patient: Coding Level of Care Code 01594 Subseq Hosp Care Lvl 3 Diagnoses Knee effusion, left M25.462 Cellulitis L03.90 Left leg pain M79.605 Diabetes mellitus E11.9 Chronic kidney disease, stage 3 N18.3 Hypertension I10 Hypertension type: essential hypertension Peripheral neuropathy G62.9 Hypothyroidism E03.9 Hyperlipidemia E78.5 Generalized osteoarthritis of multiple sites M15.9 Edema R60.9 Afib I48.91 Atrial fibrillation type: unspecified Anemia D64.9 Pressure ulcer L89.90 DVT prophylaxis Z29.9 (1) Afib Atrial fibrillation type: unspecified Qualified Code(s): I48.91 - Unspecified atrial fibrillation (2) Hypertension Hypertension type: essential hypertension Qualified Code(s): I10 - Essential (primary) hypertension
[2020-03-19] MEDS ORDERED: INSULIN HUMAN REGULAR PER UNIT 10 UNITS in SYRINGE 9.9 ML IV ONE (12:30)
[2020-03-19] MEDS: CIPROFLOXACIN 250 MG TAB PO SCH (17:57)
[2020-03-19] MEDS: GABAPENTIN 100 MG CAP PO SCH (20:55)
[2020-03-19] MEDS: ACETAMINOPHEN 325 MG TAB PO PRN (20:56)
[2020-03-20] MEDS: INSULIN ASPART 100 UNITS/ML 3 ML PEN SC SCH ×5 (03:52→21:53)
[2020-03-20] MEDS: LEVOTHYROXINE SODIUM 75 MCG TABLET PO SCH (05:23)
[2020-03-20] MEDS: HEPARIN SOD 5,000 UNIT/0.5 ML VIAL SQ SCH ×3 (05:23→21:40)
[2020-03-20 05:47] LABS: Hematocrit (blood only) 26.9 % (37-47); Hemoglobin 8.6 g/dL (12.0-16.0); Mean Corpuscular Hemoglobin 29.9 pg (25-34); Mean Corpuscular Volume 93.4 fL (80-100); Mean Platelet Volume 10.5 fL (7.4-10.4); Platelet Count 247 K/uL (130-400); RDW Coefficient of Variation 14.9 % (11.5-14.5); RDW Standard Deviation 50.9 fL (36.4-46.3); Red Blood Count 2.88 M/uL (4.2-5.4); White Blood Count 12.71 K/uL (4.8-10.8)
[2020-03-20 06:18] LABS: BUN Creatinine Ratio 36.7 (10-20); Calcium 9.1 mg/dl (8.5-10.1); Creatinine Clr Calc Pharmacy 24.6 ml/min; Est GFR (African American) 26.3; Est GFR (Non-African American) 22.7; Potassium 4.1 mmol/L (3.5-5.1)
[2020-03-20] MEDS: ASCORBIC ACID 500 MG TAB PO SCH (08:49)
[2020-03-20] MEDS: gemfibroziL 600 MG TAB PO SCH (08:50)
[2020-03-20] MEDS: OMEGA-3 (PURIFIED FISH OIL) 1 GM CAP PO SCH (08:50)
[2020-03-20] MEDS: POLYETHYLENE (MIRALAX) 17 GM PACK PO SCH ×2 (08:50→21:38)
[2020-03-20] MEDS: DOXYCYCLINE HYCLATE 100 MG CAP PO SCH ×2 (08:50→21:39)
[2020-03-20] MEDS: ASPIRIN 81 MG ECTAB PO SCH (08:50)
[2020-03-20] MEDS: CEROVITE ADV FORMULA TAB PO SCH (08:51)
[2020-03-20] MEDS: INSULIN HUMAN NPH SC SCH ×2 (08:53→17:56)
--- NOTE | 2020-03-20 13:07 | Hospitalist Progress Note ---
Date of Service March 20, 2020 Assessment & Plan (1) Knee effusion, left: Septic knee growing psuedomonas sensitive to Cipro - renal dosed 750 mg daily po Patient went to [place] 03/16 for washout Pain control with oxycodone Inflammatory markers trending down (2) Cellulitis: Cellulitis of bilateral lower extremities Cellulitis secondary to chronic venous stasis ulcers in the setting of chronic venous insufficiency Per the patient she has a longstanding history of chronic venous insufficiency with chronic venous stasis ulcers. Most recent echo in September 2018 demonstrated a left ventricular ejection fraction of 60 to 65% with normal RVSP, indicating the lower extremity swelling is most likely from venous insufficiency -Initially on IV daptomycin but switched to doxy for continued MRSA coverage, cipro as above -BC ngtd -Consulted wound care nurse - No DVT on ultrasound of left lower leg (3) Left leg pain: Xray 03/15 for increasing pain from knee to hip - shows possible stress fracture and knee effusion, follow up MRI shows fracture to be old Pain management as above Orthopedics consulted (4) Diabetes mellitus: Has been having periodic issues with hyperglycemia, preop required insulin gtt, now improved Holding home meds -Pharmacy Glycemic consult (5) Chronic kidney disease, stage 3: Patient follows with Dr. Bhatt for chronic kidney disease. Baseline creatinine appears to be 1.5 - 1.8. Creat 1.99 today -Avoid nephrotoxic med, will hold torsemide (6) Hypertension: -hold torsemide (7) Peripheral neuropathy: -PT OT ordered -Fall precautions -Continue home gabapentin (8) Hypothyroidism: -Continue levothyroxine 75 mcg p.o. every morning (9) Hyperlipidemia: -Continue gemfibrozil (10) Generalized osteoarthritis of multiple sites: -PT OT -Pain control (11) Edema: -torsemide as above (12) Afib: Patient had 1 episode of documented atrial fibrillation during an admission September 2018, she was very acutely ill at that time. She spontaneously converted with 1 dose of IV Lopressor and has had no further events after that. She was on metoprolol 25 mg daily and was not started on anticoagulation and maintain normal sinus rhythm. Subsequently Toprol was stopped and she has since had no episodes of atrial fibrillation. -Monitor for development of A. fib (13) Anemia: of chronic disease. Stable, baseline appears to be around 8.5 - 11 (14) Pressure ulcer: Stage 3 Pressure ulcer of left & right medial buttock, POA Wound care nurse consulted Turn and reposition frequently Per nursing, no worsening of wound (15) DVT prophylaxis: heparin subq Dispo: therapy evals recommending rehab but patient thus far refusing and insisting on home health. Will need to follow PT/OT notes and discuss again prior to discharge. For today as she is continuing to spike fevers she will stay in the hospital Admission and Anticipated Discharge Date Admission Date: March 15, 2020 Supervising Physician Co-Signing Physician Notes chart reviewed and case d/w S Liliana PATEL. agree w above Subjective Ms. Mike continues to be quite fatigued though her pain is improving in her knee. She was febrile again last evening Review of Systems Constitutional: no chills and no body aches Respiratory: no cough and no dyspnea Cardiovascular: no chest pain and no palpitations Gastrointestinal: no abdominal pain and no nausea Genitourinary: no dysuria and no urinary hesitancy Musculoskeletal: + joint pain; no back pain Integumentary: no rash Physical Exam Physical Exam: General: no distress Eyes: normal inspection, PERLL Respiratory: chest non tender, clear to auscultation, normal breath sounds, no r espiratory distress, no accessory muscle use Cardiac: regular rate and rhythm, no rub or gallop, no murmur, no edema, no jvd GI/: active bowel sounds, no abd pain or tenderness, soft, non distended Extremities: normal range of motion, normal strength, non tender Neuro/Psych: alert and oriented x 3, normal mood and affect Skin: normal color, dry, improving erythema right lower leg, left lower leg not visualized due to zeke wrap Results & Data Results & Data ([facility]) Vital Signs (Past 12 Hours) Vital Signs Temp Pulse Resp BP Pulse Ox 03/20/20 07:11 36.5 C 72 16 112/53 L 97 PG Care Time/CCT Total # of Minutes Spent Total Time Spent with Patient: Total time spent is greater than 50% in coordination of care (as documented) at patient's floor/unit and/or counseling p atient: Coding Level of Care Code 30077 Subseq Hosp Care Lvl 2 Diagnoses Knee effusion, left M25.462 Cellulitis L03.90 Left leg pain M79.605 Diabetes mellitus E11.9 Chronic kidney disease, stage 3 N18.3 Hypertension I10 Hypertension type: essential hypertension Peripheral neuropathy G62.9 Hypothyroidism E03.9 Hyperlipidemia E78.5 Generalized osteoarthritis of multiple sites M15.9 Edema R60.9 Afib I48.91 Atrial fibrillation type: unspecified Anemia D64.9 Pressure ulcer L89.90 DVT prophylaxis Z29.9 (1) Afib Atrial fibrillation type: unspecified Qualified Code(s): I48.91 - Unspecified atrial fibrillation (2) Hypertension Hypertension type: essential hypertension Qualified Code(s): I10 - Essential (primary) hypertension
[2020-03-20] MEDS: oxyCODONE HCL IR 5 MG TAB (IMMEDIATE RELEASE) PO PRN ×2 (16:54→22:05)
[2020-03-20] MEDS: CIPROFLOXACIN 250 MG TAB PO SCH (18:02)
[2020-03-20] MEDS: GABAPENTIN 100 MG CAP PO SCH (21:39)
[2020-03-21 01:42] LABS: Lyme DNA PCR CSF or Synovial Not detected (Not Detected); Lyme DNA Source Synovial Fluid
[2020-03-21] MEDS: LEVOTHYROXINE SODIUM 75 MCG TABLET PO SCH (06:02)
[2020-03-21] MEDS: oxyCODONE HCL IR 5 MG TAB (IMMEDIATE RELEASE) PO PRN ×2 (06:02→21:34)
[2020-03-21] MEDS: HEPARIN SOD 5,000 UNIT/0.5 ML VIAL SQ SCH ×3 (06:03→21:51)
[2020-03-21 08:28] LABS: Hematocrit (blood only) 26.8 % (37-47); Hemoglobin 8.6 g/dL (12.0-16.0); Mean Corpuscular Hemoglobin 30.1 pg (25-34); Mean Corpuscular Hgb Conc 32.1 g/dL (32-36); Mean Corpuscular Volume 93.7 fL (80-100); Mean Platelet Volume 10.9 fL (7.4-10.4); Nucleated RBC # (auto) 0.02 K/uL (0-0); Nucleated RBC % (auto) 0.1 %; Platelet Count 299 K/uL (130-400); RDW Coefficient of Variation 14.9 % (11.5-14.5); RDW Standard Deviation 51.2 fL (36.4-46.3); Red Blood Count 2.86 M/uL (4.2-5.4); White Blood Count 13.49 K/uL (4.8-10.8)
[2020-03-21] MEDS: ASCORBIC ACID 500 MG TAB PO SCH (08:50)
[2020-03-21] MEDS: ASPIRIN 81 MG ECTAB PO SCH (08:50)
[2020-03-21] MEDS: gemfibroziL 600 MG TAB PO SCH (08:50)
[2020-03-21] MEDS: OMEGA-3 (PURIFIED FISH OIL) 1 GM CAP PO SCH (08:51)
[2020-03-21] MEDS: CHOLECALCIFEROL 1,000 UNITS 25 MCG TAB PO SCH (08:51)
[2020-03-21] MEDS: POLYETHYLENE (MIRALAX) 17 GM PACK PO SCH ×2 (08:51→21:35)
[2020-03-21] MEDS: CEROVITE ADV FORMULA TAB PO SCH (08:51)
[2020-03-21] MEDS: DOXYCYCLINE HYCLATE 100 MG CAP PO SCH ×2 (08:52→21:35)
[2020-03-21] MEDS: INSULIN HUMAN NPH SC SCH (08:54)
[2020-03-21] MEDS: INSULIN ASPART 100 UNITS/ML 3 ML PEN SC SCH ×4 (08:55→21:51)
[2020-03-21 09:00] LABS: BUN Creatinine Ratio 36.8 (10-20); Calcium 9.4 mg/dl (8.5-10.1); Creatinine Clr Calc Pharmacy 26.3 ml/min; Est GFR (African American) 28.5; Est GFR (Non-African American) 24.6; Potassium 4.2 mmol/L (3.5-5.1)
--- NOTE | 2020-03-21 09:00 | Pharmacy Report ---
Pharmacy Glycemic Short Note 2 - Date of Service March 21, 2020 - Glycemic Short BSG Results (Last 24 hours): 03/20/20 03/20/20 03/20/20 11:53 16:53 16:55 POC Glucose 239 H 310 H* 295 H 03/20/20 03/21/20 21:51 08:04 POC Glucose 184 H 213 H OUTPATIENT ANTIDIABETIC REGIMEN: * 70/30 60 units BID * A1c 6.6% 10/22/19 ASSESSMENT: 03/21 * BSGs continued to be poorly controlled this weekend * BSGs yesterday of 186, 239, 310, and 184 mg/dL * Patient received 179 units of insulin (84 units of NPH and 95 units of prandial/correctional) * Novolog parameters tightened yesterday evening * Fasting BSG this morning of 213 mg/dL * Will increase NPH to 50 units this morning and set scale for evening dose 03/18 * BSGs increased throughout the day yesterday (118, 152, 258, and 272 mg/dL) * Patient received 60 units of basal (NPH) and 74 units of prandial/correctional Novolog * Fasting BSG of 198 mg/dL this morning * Will plan to increase NPH starting this morning and tighten Novolog correction factor * NPH order missing from JUN for AM dose and wasn't discovered until late morning - NPH ordered for ~1100 * Lunch BSG of 350 mg/dL - likely due to delayed NPH administration (will cover with 5 unit IV bolus and temporarily loosen CF as to not overcorrect) 03/14 * Pt is a 84 yo female admitted with cellulitis * BSG initially low on admission up to 186 mg/dL this morning. Patient utilized 70/30 insulin 60 units BID. Initial parameters will be based on patients total outpatient dose as well as weight based dosing. PLAN FOR INPATIENT GLYCEMIC CONTROL: * Insulin infusion discontinued * Basal insulin - increase * NPH 50 units SC x 1 this morning * NPH scale 42-50 units SC this evening * Bolus insulin - tighten carb ratio * NovoLog per scale ACHS or Q6hrs while NPO * Correction Factor: 10 mg/dL/unit * Nutritional / Prandial insulin per carb ratio of 1 unit per 2.5 grams CHO consumed PLAN FOR DISCHARGE: * HbA1c of 6.8% suggests good outpatient glycemic control * Provided patient is not experiencing hypoglycemia as an outpatient - reasonable to continue outpatient regimen
[2020-03-21 09:16] LABS: Basophils # (auto) 0.06 K/uL (0-0.2); Basophils % (auto) 0.4 %; Eosinophils # (auto) 0.35 K/uL (0-0.5); Eosinophils % (auto) 2.6 %; Immature Granulocytes # (auto) 0.59 K/uL (0.00-0.02); Immature Granulocytes % (auto) 4.4 %; Lymphocytes # (auto) 3.46 K/uL (1.2-3.4); Lymphocytes % (auto) 25.6 %; Monocytes # (auto) 1.09 K/uL (0.11-0.59); Monocytes % (auto) 8.1 %; Neutrophils # (auto) 7.94 K/uL (1.4-6.5); Neutrophils % (auto) 58.9 %
--- NOTE | 2020-03-21 10:56 | Hospitalist Progress Note ---
Date of Service March 21, 2020 Assessment & Plan (1) Knee effusion, left: * Septic knee growing pseudomonas sensitive to Cipro - renal dosed 750 mg daily po * s/p LEFT KNEE I&D washout on 03/[address] Murguia * Cultures with pseudomonas, sensitive to Cipro * Cipro 750mg daily (on day 4 of therapy) * Pain control with oxycodone * Inflammatory markers trending down -- ESR 44 (from 80) CRP 33 (from 35.6) on 03/19 and will repeat in AM * CBC stable * Plans for [facility] at discharge, possibly tomorrow. CM following * Temp 38.5C last evening. BCx remain negative to date. Will repeat today for continued fever and obtain CXR with hypoxia 03/20. * Of note, patient initially on Zosyn and was d/c and placed on Cipro 03/18 and WBC increased since that time. (2) Cellulitis: * bilateral lower extremities * Cellulitis secondary to chronic venous stasis ulcers in the setting of chronic venous insufficiency * Per the patient she has a longstanding history of chronic venous insufficiency with chronic venous stasis ulcers. * Most recent echo in September 2018 demonstrated a left ventricular ejection fraction of 60 to 65% with normal RVSP, indicating the lower extremity swelling is most likely from venous insufficiency * Initially on IV daptomycin but switched to doxy for continued MRSA coverage * Continue cipro as above * BCx remain negative to date * Wound RN consulted * U/S NEGATIVE for DVT LLE * Cipro as above (3) Left leg pain: * Xray 03/15 for increasing pain from knee to hip - shows possible stress fracture and knee effusion, follow up MRI shows fracture to be old * Pain management as above * Orthopedics consulted as above (4) Diabetes mellitus: * Has been having periodic issues with hyperglycemia, preop required insulin gtt, now improved. * A1c 6.8 * Holding home meds while inpatient * Pharmacy Glycemic consult (5) Chronic kidney disease, stage 3: * Patient follows with Dr. Bhatt for chronic kidney disease. Baseline creatinine appears to be 1.5 - 1.8. * Avoid nephrotoxic med, will hold torsemide * Cr improved to 1.86 on AM labs * BMP in AM (6) Hypertension: * hold torsemide as above * BP stable 149/64 * Continue to monitor (7) Peripheral neuropathy: * PT OT ordered * Fall precautions * Continue home gabapentin * Will check B12 with AM labs (8) Hypothyroidism: * Last TSH 03/13/20 1.8 * Continue levothyroxine 75 mcg p.o. every morning (9) Hyperlipidemia: * Last lipid panel October 2019 * Continue gemfibrozil (10) Generalized osteoarthritis of multiple sites: * PT OT * Pain control (11) Edema: * torsemide as above (on hold) (12) Afib: * Patient had 1 episode of documented atrial fibrillation during an admis ekaterina September 2018, she was very acutely ill at that time. She spontaneously converted with 1 dose of IV Lopressor and has had no further events after that. She was on metoprolol 25 mg daily and was not started on anticoagulation and maintain normal sinus rhythm. Subsequently Toprol was stopped and she has since had no episodes of atrial fibrillation. * Monitor for development of A. fib (13) Anemia: * of chronic disease. Stable, baseline appears to be around 8.5 - 11 (14) Pressure ulcer: * Stage 3 Pressure ulcer of left & right medial buttock, POA * Wound care nurse consulted * Turn and reposition frequently * Per nursing, no worsening of wound (15) DVT prophylaxis: * heparin subq Hypoxia * 89% on RA overnight, currently 94% on RA * Will obtain CXR as patient with temp 38.5C from evening 03/20 * WBC trending up but patient denied sob/cough, or sputum production * Will also obtain overnight Pox for possible BO * Also of note, patient never had pre-op CXR prior to I&D as above * Encourage Incentive Spirometer Dispo: Will need rehab at d/c, possible [facility] with bed tomorrow (03/22) Will need to follow PT/OT notes prior to discharge. Admission and Anticipated Discharge Date Admission Date: March 15, 2020 Subjective Patient evaluated this afternoon. Sitting up in chair. No pain currently reported, but she states it is increasingly painful with ambulation. Would like home health at discharge but aware that that may not be safest option but will see how she progresses with PT/OT. Cool in the room,. Eating/drinking without difficulty. Moved her bowels. Still with renee but would like to keep that in for today but did discuss we would like to have removed as soon as possible and re-eval tomorrow to remove. No chest pain, shortness of breath, abdominal pain, nausea or vomiting. Review of Systems Review of Systems: All systems reviewed & are unremarkable except as noted in HPI & below Physical Exam Constitutional: WD/WN, vitals as above cooperative and comfortable; no acute distress Eyes: + anicteric sclerae and PERRL ENMT: Ears: no hearing impairment Mallampati Class: II mmm Neck: normal visual inspection and trachea midline Respiratory: normal respiratory effort Auscultation: lungs clear to auscultation bilaterally and + diminished lung sounds (bases) Cardiovascular: Rate/Rhythm: regular rate and regular rhythm Extremities: + edema (pedal, trace) Gastrointestinal (Abdomen): normal bowel sounds, soft, nontender, no hepatosplenomegaly Musculoskeletal: L knee/leg with JO wrap, some bloody drainage noted. Improving erythema right lower leg, left lower leg not visualized due to jo wrap tender to palpation over medial aspect of knee NVI Skin: war, dry Neurologic: moves all extremities Psychiatric: Orientation: alert and oriented x 3 Genitourinary: renee draining clear/yellow urine Results & Data Results & Data ([facility]) Vital Signs (Past 12 Hours) Vital Signs Temp Pulse Resp BP Pulse Ox 03/21/20 07:45 37.4 C 86 16 149/64 H 94 03/20/20 23:35 37.6 C H 03/20/20 23:05 38.5 C H 96 H 18 122/55 L 94 Laboratory Results 03/21/20 03/21/20 03/21/20 Range/Units 08:04 07:49 07:49 WBC 13.49 H (4.8-10.8) K/uL RBC 2.86 L (4.2-5.4) M/uL Hgb 8.6 L (12.0-16.0) g/dL Hct 26.8 L (37-47) % MCV 93.7 (80-100) fL MCH 30.1 (25-34) pg MCHC 32.1 (32-36) g/dL RDW Std Deviation 51.2 H (36.4-46.3) fL RDW Coeff of Brian 14.9 H (11.5-14.5) % Plt Count 299 (130-400) K/uL MPV 10.9 H (7.4-10.4) fL Immature Gran % (Auto) 4.4 % Neut % (Auto) 58.9 % Lymph % (Auto) 25.6 % Charlotte % (Auto) 8.1 % Eos % (Auto) 2.6 % Baso % (Auto) 0.4 % Neut # (Auto) 7.94 H (1.4-6.5) K/uL Lymph # (Auto) 3.46 H (1.2-3.4) K/uL Charlotte # (Auto) 1.09 H (0.11-0.59) K/uL Eos # (Auto) 0.35 (0-0.5) K/uL Baso # (Auto) 0.06 (0-0.2) K/uL Immature Gran # (Auto) 0.59 H (0.00-0.02) K/uL Absolute Nucleated RBC 0.02 H (0-0) K/uL Nucleated RBC % (auto) 0.1 % Sodium 138 (136-145) mmol/L Potassium 4.2 (3.5-5.1) mmol/L Chloride 102 (98-107) mmol/L Carbon Dioxide 29 (21-32) mmol/L Anion Gap 7.0 (3-11) BUN 69 H (7-18) mg/dl Creatinine 1.86 H (0.6-1.2) mg/dl Est Cr Clr Drug Dosing 26.3 ml/min Est GFR ( Amer) 28.5 Est GFR (Non-Af Amer) 24.6 BUN/Creatinine Ratio 36.8 H (10-20) Glucose 183 H (70-99) mg/dl POC Glucose 213 H (70-99) mg/dl Calcium 9.4 (8.5-10.1) mg/dl Fld Lyme DNA (PCR) (Not Detected) Lyme Specimen Source 03/20/20 03/20/20 03/20/20 Range/Units 21:51 16:55 16:53 WBC (4.8-10.8) K/uL RBC (4.2-5.4) M/uL Hgb (12.0-16.0) g/dL Hct (37-47) % MCV (80-100) fL MCH (25-34) pg MCHC (32-36) g/dL RDW Std Deviation (36.4-46.3) fL RDW Coeff of Brian (11.5-14.5) % Plt Count (130-400) K/uL MPV (7.4-10.4) fL Immature Gran % (Auto) % Neut % (Auto) % Lymph % (Auto) % Charlotte % (Auto) % Eos % (Auto) % Baso % (Auto) % Neut # (Auto) (1.4-6.5) K/uL Lymph # (Auto) (1.2-3.4) K/uL Charlotte # (Auto) (0.11-0.59) K/uL Eos # (Auto) (0-0.5) K/uL Baso # (Auto) (0-0.2) K/uL Immature Gran # (Auto) (0.00-0.02) K/uL Absolute Nucleated RBC (0-0) K/uL Nucleated RBC % (auto) % Sodium (136-145) mmol/L Potassium (3.5-5.1) mmol/L Chloride (98-107) mmol/L Carbon Dioxide (21-32) mmol/L Anion Gap (3-11) BUN (7-18) mg/dl Creatinine (0.6-1.2) mg/dl Est Cr Clr Drug Dosing ml/min Est GFR ( Amer) Est GFR (Non-Af Amer) BUN/Creatinine Ratio (10-20) Glucose (70-99) mg/dl POC Glucose 184 H 295 H 310 H* (70-99) mg/dl Calcium (8.5-10.1) mg/dl Fld Lyme DNA (PCR) (Not Detected) Lyme Specimen Source 03/20/20 03/15/20 Range/Units 11:53 15:54 WBC (4.8-10.8) K/uL RBC (4.2-5.4) M/uL Hgb (12.0-16.0) g/dL Hct (37-47) % MCV (80-100) fL MCH (25-34) pg MCHC (32-36) g/dL RDW Std Deviation (36.4-46.3) fL RDW Coeff of Brian (11.5-14.5) % Plt Count (130-400) K/uL MPV (7.4-10.4) fL Immature Gran % (Auto) % Neut % (Auto) % Lymph % (Auto) % Charlotte % (Auto) % Eos % (Auto) % Baso % (Auto) % Neut # (Auto) (1.4-6.5) K/uL Lymph # (Auto) (1.2-3.4) K/uL Charlotte # (Auto) (0.11-0.59) K/uL Eos # (Auto) (0-0.5) K/uL Baso # (Auto) (0-0.2) K/uL Immature Gran # (Auto) (0.00-0.02) K/uL Absolute Nucleated RBC (0-0) K/uL Nucleated RBC % (auto) % Sodium (136-145) mmol/L Potassium (3.5-5.1) mmol/L Chloride (98-107) mmol/L Carbon Dioxide (21-32) mmol/L Anion Gap (3-11) BUN (7-18) mg/dl Creatinine (0.6-1.2) mg/dl Est Cr Clr Drug Dosing ml/min Est GFR ( Amer) Est GFR (Non-Af Amer) BUN/Creatinine Ratio (10-20) Glucose (70-99) mg/dl POC Glucose 239 H (70-99) mg/dl Calcium (8.5-10.1) mg/dl Fld Lyme DNA (PCR) Not detected (Not Detected) Lyme Specimen Source Synovial Fluid PG Care Time/CCT Total # of Minutes Spent Total Time Spent with Patient: Total time spent is greater than 50% in coordination of care (as documented) at patient's floor/unit and/or counseling patient: Coding Level of Care Code 50339 Subseq Hosp Care Lvl 3 Diagnoses Knee effusion, left M25.462 Cellulitis L03.90 Left leg pain M79.605 Diabetes mellitus E11.9 Chronic kidney disease, stage 3 N18.3 Hypertension I10 Hypertension type: essential hypertension Peripheral neuropathy G62.9 Hypothyroidism E03.9 Hyperlipidemia E78.5 Generalized osteoarthritis of multiple sites M15.9 Edema R60.9 Afib I48.91 Atrial fibrillation type: unspecified Anemia D64.9 Pressure ulcer L89.90 DVT prophylaxis Z29.9 (1) Hypertension Hypertension type: essential hypertension Qualified Code(s): I10 - Essential (primary) hypertension (2) Afib Atrial fibrillation type: unspecified Qualified Code(s): I48.91 - Unspecified atrial fibrillation
--- NOTE | 2020-03-21 15:08 | XRay Report ---
XR chest 1V portable CLINICAL HISTORY: hypoxia, fever COMPARISON STUDY: 10/20/2018 FINDINGS: The heart is mildly enlarged. There is no lobar consolidation. There is no failure. There a re no pleural effusions. There is minor left basilar atelectasis/scarring.[ IMPRESSION: No significant change from the prior study. Mild cardiomegaly. No evidence of acute paren chymal consolidation ACT 112: Negative or not required by law. Electronically signed by: Jose Borrero M.D. 03/21/2020 3:06 PM
[2020-03-21] MEDS ORDERED: INSULIN HUMAN NPH SC SCH (17:00)
[2020-03-21] MEDS: CIPROFLOXACIN 250 MG TAB PO SCH (18:30)
[2020-03-21] MEDS: GABAPENTIN 100 MG CAP PO SCH (21:35)
[2020-03-22] MEDS: LEVOTHYROXINE SODIUM 75 MCG TABLET PO SCH (05:52)
[2020-03-22] MEDS: HEPARIN SOD 5,000 UNIT/0.5 ML VIAL SQ SCH ×3 (05:52→20:56)
[2020-03-22 06:04] LABS: Hematocrit (blood only) 26.4 % (37-47); Hemoglobin 8.4 g/dL (12.0-16.0); Mean Corpuscular Hemoglobin 29.6 pg (25-34); Mean Corpuscular Hgb Conc 31.8 g/dL (32-36); Mean Platelet Volume 10.4 fL (7.4-10.4); Platelet Count 309 K/uL (130-400); RDW Coefficient of Variation 14.8 % (11.5-14.5); Red Blood Count 2.84 M/uL (4.2-5.4); White Blood Count 14.56 K/uL (4.8-10.8)
[2020-03-22 06:33] LABS: BUN Creatinine Ratio 37.8 (10-20); Calcium 9.2 mg/dl (8.5-10.1); Creatinine Clr Calc Pharmacy 26.5 ml/min; Est GFR (African American) 28.7; Est GFR (Non-African American) 24.7; Potassium 4.3 mmol/L (3.5-5.1)
[2020-03-22] MEDS: DOXYCYCLINE HYCLATE 100 MG CAP PO SCH ×2 (09:21→20:56)
[2020-03-22] MEDS: INSULIN HUMAN NPH SC SCH ×2 (09:22→18:24)
[2020-03-22] MEDS: INSULIN ASPART 100 UNITS/ML 3 ML PEN SC SCH ×4 (09:25→21:37)
[2020-03-22] MEDS: POLYETHYLENE (MIRALAX) 17 GM PACK PO SCH ×2 (09:28→21:24)
[2020-03-22] MEDS: gemfibroziL 600 MG TAB PO SCH (09:40)
[2020-03-22] MEDS: ASCORBIC ACID 500 MG TAB PO SCH (09:40)
[2020-03-22] MEDS: ASPIRIN 81 MG ECTAB PO SCH (09:40)
[2020-03-22] MEDS: CEROVITE ADV FORMULA TAB PO SCH (09:40)
[2020-03-22] MEDS: OMEGA-3 (PURIFIED FISH OIL) 1 GM CAP PO SCH (09:40)
[2020-03-22 11:23] LABS: Basophils # (auto) 0.06 K/uL (0-0.2); Basophils % (auto) 0.4 %; Eosinophils # (auto) 0.42 K/uL (0-0.5); Immature Granulocytes # (auto) 0.43 K/uL (0.00-0.02); Lymphocytes # (auto) 3.04 K/uL (1.2-3.4); Lymphocytes % (auto) 21.4 %; Monocytes % (auto) 8.5 %; Neutrophils # (auto) 9.03 K/uL (1.4-6.5); Neutrophils % (auto) 63.7 %
[2020-03-22 11:40] LABS: Appearance Urine Clear (Clear); Bacteria Urine Automated Negative (Negative); Bilirubin Urine Negative (Negative); Blood Urine Negative (Negative); Color Urine Yellow; Epithelial Cell Urine Auto >30 /lpf (0-5); Glucose Urine UA Negative (Negative); Ketones Urine Negative (Negative); Leukocyte Esterase Urine 2+ (Negative); Nitrite Urine Negative (Negative); Protein Urine Negative (Negative); Specific Gravity Urine 1.021 (1.000-1.030); Urobilinogen Urine Negative (Negative)
[2020-03-22] MEDS: oxyCODONE HCL IR 5 MG TAB (IMMEDIATE RELEASE) PO PRN ×2 (12:43→22:19)
--- NOTE | 2020-03-22 15:57 | Hospitalist Progress Note ---
Date of Service March 22, 2020 Assessment & Plan (1) Knee effusion, left: * Septic knee growing pseudomonas sensitive to Cipro - renal dosed but reportedly increased to 750 mg daily po for persistent fevers --> will decrease to 500mg daily * s/p LEFT KNEE I&D washout on 03/[address] Murguia * Cultures with pseudomonas, sensitive to Cipro * Cipro, but decrease to 500mg daily (on day 5 of therapy) * Pain control with oxycodone * Inflammatory markers trending down -- ESR 44 (from 80) CRP 33 (from 35.6) on 03/19 but ESR elevated today 54 * CBC stable * Temp 38.5C last evening. BCx remain negative to date. Will repeat today for continued fever and obtain CXR with hypoxia 03/20. * Of note, patient initially on Zosyn and was d/c and placed on Cipro 03/18 and WBC increased since that time. * Plans for [facility] at discharge, possibly tomorrow. * CM following (2) Cellulitis: * bilateral lower extremities * Cellulitis secondary to chronic venous stasis ulcers in the setting of chronic venous insufficiency * Per the patient she has a longstanding history of chronic venous insufficiency with chronic venous stasis ulcers. * Most recent echo in September 2018 demonstrated a left ventricular ejection fraction of 60 to 65% with normal RVSP, indicating the lower extremity swelling is most likely from venous insufficiency * Initially on IV daptomycin but switched to doxy for continued MRSA coverage * Continue cipro as above * BCx remain negative to date but repeated * Wound RN consulted * U/S NEGATIVE for DVT LLE * Cipro as above * Temp 37.9C this afternoon -- could be some atelectasis vs drug reaction (did decrease cipro as above). Had been afebrile since 03/20 (3) Left leg pain: * Xray 03/15 for increasing pain from knee to hip - shows possible stress fracture and knee effusion, follow up MRI shows fracture to be old * Pain management as above * Orthopedics consulted as above (4) Diabetes mellitus: * Has been having periodic issues with hyperglycemia, preop required insulin gtt, now improved. * A1c 6.8 * Holding home meds while inpatient * Pharmacy Glycemic consult (5) Chronic kidney disease, stage 3: * Patient follows with Dr. Bhatt for chronic kidney disease. Baseline creatinine appears to be 1.5 - 1.8. * Avoid nephrotoxic med * Cr improved to 1.86 on AM labs * Resumed torsemide for edema * BMP in AM (6) Hypertension: * hold torsemide as above * BP stable 145/68 * Continue to monitor (7) Peripheral neuropathy: * PT OT ordered * Fall precautions * Continue home gabapentin * B12 666 (8) Hypothyroidism: * Last TSH 03/13/20 1.8 * Continue levothyroxine 75 mcg p.o. every morning (9) Hyperlipidemia: * Last lipid panel October 2019 * Continue gemfibrozil (10) Generalized osteoarthritis of multiple sites: * PT OT * Pain control (11) Edema: * torsemide as above resumed (12) Afib: * Patient had 1 episode of documented atrial fibrillation during an admission September 2018, she was very acutely ill at that time. She spontaneously converted with 1 dose of IV Lopressor and has had no further events after that. She was on metoprolol 25 mg daily and was not started on anticoagulation and maintain normal sinus rhythm. Subsequently Toprol was stopped and she has since had no episodes of atrial fibrillation. * Monitor for development of A. fib (13) Anemia: * of chronic disease. Stable, baseline appears to be around 8.5 - 11 (14) Pressure ulcer: * Stage 3 Pressure ulcer of left & right medial buttock, POA * Wound care nurse consulted * Turn and reposition frequently * Per nursing, no worsening of wound (15) DVT prophylaxis: * heparin subq Hypoxia * 89% on RA overnight, currently 95% on RA * Overnight pulse ox without desaturation * CXR with L basilar atelectasis/scarring * WBC trending up. No s/sx infection --> may need to repeat imaging of L knee if continues on AM labs * Continued encouragement for Incentive Spirometer Updated daughter Tila this evening. Dispo: Will need rehab at d/c, possible [facility] when insurance auth received Will need to follow PT/OT notes prior to discharge. Admission and Anticipated Discharge Date Admission Date: March 15, 2020 Subjective Patient evaluated this morning sitting up in chair. Has been in chair from 11-12 presently. Feeling generally weak. Discussed discontinuing her renee catheter and sending urine to see about possible infection. If unrevealing possibly need to re-image leg to see about surgical infection, as patient reports increased pain with any movement and not participating much with therapy. No fevers but does endorse chills. No chest pain or shortness of breath. Encouraged continued use of incentive spirometer. No nausea/vomiting or abdominal pain noted. Awaiting acceptance at rehab currently. Will call daughter this evening for update on progress. Review of Systems Review of Systems: All systems reviewed & are unremarkable except as noted in HPI & below Physical Exam Constitutional: WD/WN, vitals as above cooperative and comfortable; no acute distress Eyes: + anicteric sclerae and PERRL ENMT: Ears: no hearing impairment Mallampati Class: II Neck: normal visual inspection and trachea midline Respiratory: normal respiratory effort Auscultation: lungs clear to auscultation bilaterally and + diminished lung sounds (bases, improved) Cardiovascular: Rate/Rhythm: regular rate and regular rhythm Extremities: + edema (pedal,L>R) Gastrointestinal (Abdomen): normal bowel sounds, soft, nontender, no hepatosplenomegaly Musculoskeletal: zeke wrap to LLE with blood noted exquisitely tender to palpation medial aspect L knee able to plantar/dorsiflex but with increased pain pulses weak but palpable calves tender to palpation with improving cellulitis NVI Skin: erythema b/l buttocks Neurologic: moves all extremities Psychiatric: Orientation: alert and oriented x 3 Results & Data Results & Data ([facility]) Vital Signs (Past 12 Hours) Vital Signs Temp Pulse Resp BP Pulse Ox 03/22/20 15:31 37.9 C H 91 H 20 145/68 H 95 03/22/20 07:04 37.1 C 90 18 113/55 L 90 Laboratory Results 03/22/20 03/22/20 03/22/20 Range/Units 17:04 12:05 11:25 WBC (4.8-10.8) K/uL RBC (4.2-5.4) M/uL Hgb (12.0-16.0) g/dL Hct (37-47) % MCV (80-100) fL MCH (25-34) pg MCHC (32-36) g/dL RDW Std Deviation (36.4-46.3) fL RDW Coeff of Brian (11.5-14.5) % Plt Count (130-400) K/uL MPV (7.4-10.4) fL Immature Gran % (Auto) % Neut % (Auto) % Lymph % (Auto) % Price % (Auto) % Eos % (Auto) % Baso % (Auto) % Neut # (Auto) (1.4-6.5) K/uL Lymph # (Auto) (1.2-3.4) K/uL Price # (Auto) (0.11-0.59) K/uL Eos # (Auto) (0-0.5) K/uL Baso # (Auto) (0-0.2) K/uL Immature Gran # (Auto) (0.00-0.02) K/uL ESR (0-21) mm/hr Sodium (136-145) mmol/L Potassium (3.5-5.1) mmol/L Chloride (98-107) mmol/L Carbon Dioxide (21-32) mmol/L Anion Gap (3-11) BUN (7-18) mg/dl Creatinine (0.6-1.2) mg/dl Est Cr Clr Drug Dosing ml/min Est GFR ( Amer) Est GFR (Non-Af Amer) BUN/Creatinine Ratio (10-20) Glucose (70-99) mg/dl POC Glucose 124 H 154 H (70-99) mg/dl Calcium (8.5-10.1) mg/dl C-Reactive Protein (0-0.29) mg/dl Vitamin B12 (193-986) pg/ml Urine Color Yellow Urine Appearance Clear (Clear) Urine pH 5.0 (4.5-7.5) Ur Specific Nora 1.021 (1.000-1.030) Urine Protein Negative (Negative) Urine Glucose (UA) Negative (Negative) Urine Ketones Negative (Negative) Urine Blood Negative (Negative) Urine Nitrite Negative (Negative) Urine Bilirubin Negative (Negative) Urine Urobilinogen Negative (Negative) Ur Leukocyte Esterase 2+ H (Negative) Urine WBC (Auto) 10-30 H (0-5) /hpf Urine RBC (Auto) 5-10 H (0-4) /hpf U Hyaline Cast (Auto) 1-5 (0-5) /lpf U Epithel Cells (Auto) >30 H (0-5) /lpf Urine Bacteria (Auto) Negative (Negative) 03/22/20 03/22/20 03/22/20 Range/Units 08:04 05:43 05:43 WBC (4.8-10.8) K/uL RBC (4.2-5.4) M/uL Hgb (12.0-16.0) g/dL Hct (37-47) % MCV (80-100) fL MCH (25-34) pg MCHC (32-36) g/dL RDW Std Deviation (36.4-46.3) fL RDW Coeff of Brian (11.5-14.5) % Plt Count (130-400) K/uL MPV (7.4-10.4) fL Immature Gran % (Auto) % Neut % (Auto) % Lymph % (Auto) % Price % (Auto) % Eos % (Auto) % Baso % (Auto) % Neut # (Auto) (1.4-6.5) K/uL Lymph # (Auto) (1.2-3.4) K/uL Price # (Auto) (0.11-0.59) K/uL Eos # (Auto) (0-0.5) K/uL Baso # (Auto) (0-0.2) K/uL Immature Gran # (Auto) (0.00-0.02) K/uL ESR 54 H (0-21) mm/hr Sodium (136-145) mmol/L Potassium (3.5-5.1) mmol/L Chloride (98-107) mmol/L Carbon Dioxide (21-32) mmol/L Anion Gap (3-11) BUN (7-18) mg/dl Creatinine (0.6-1.2) mg/dl Est Cr Clr Drug Dosing ml/min Est GFR ( Amer) Est GFR (Non-Af Amer) BUN/Creatinine Ratio (10-20) Glucose (70-99) mg/dl POC Glucose 154 H (70-99) mg/dl Calcium (8.5-10.1) mg/dl C-Reactive Protein 21.60 H (0-0.29) mg/dl Vitamin B12 (193-986) pg/ml Urine Color Urine Appearance (Clear) Urine pH (4.5-7.5) Ur Specific Nora (1.000-1.030) Urine Protein (Negative) Urine Glucose (UA) (Negative) Urine Ketones (Negative) Urine Blood (Negative) Urine Nitrite (Negative) Urine Bilirubin (Negative) Urine Urobilinogen (Negative) Ur Leukocyte Esterase (Negative) Urine WBC (Auto) (0-5) /hpf Urine RBC (Auto) (0-4) /hpf U Hyaline Cast (Auto) (0-5) /lpf U Epithel Cells (Auto) (0-5) /lpf Urine Bacteria (Auto) (Negative) 03/22/20 03/22/20 03/22/20 Range/Units 05:43 05:43 05:43 WBC 14.56 H (4.8-10.8) K/uL RBC 2.84 L (4.2-5.4) M/uL Hgb 8.4 L (12.0-16.0) g/dL Hct 26.4 L (37-47) % MCV 93.0 (80-100) fL MCH 29.6 (25-34) pg MCHC 31.8 L (32-36) g/dL RDW Std Deviation 51.0 H (36.4-46.3) fL RDW Coeff of Brian 14.8 H (11.5-14.5) % Plt Count 309 (130-400) K/uL MPV 10.4 (7.4-10.4) fL Immature Gran % (Auto) 3.0 % Neut % (Auto) 63.7 % Lymph % (Auto) 21.4 % Price % (Auto) 8.5 % Eos % (Auto) 3.0 % Baso % (Auto) 0.4 % Neut # (Auto) 9.03 H (1.4-6.5) K/uL Lymph # (Auto) 3.04 (1.2-3.4) K/uL Price # (Auto) 1.20 H (0.11-0.59) K/uL Eos # (Auto) 0.42 (0-0.5) K/uL Baso # (Auto) 0.06 (0-0.2) K/uL Immature Gran # (Auto) 0.43 H (0.00-0.02) K/uL ESR (0-21) mm/hr Sodium 138 (136-145) mmol/L Potassium 4.3 (3.5-5.1) mmol/L Chloride 102 (98-107) mmol/L Carbon Dioxide 29 (21-32) mmol/L Anion Gap 7.0 (3-11) BUN 70 H (7-18) mg/dl Creatinine 1.85 H (0.6-1.2) mg/dl Est Cr Clr Drug Dosing 26.5 ml/min Est GFR ( Amer) 28.7 Est GFR (Non-Af Amer) 24.7 BUN/Creatinine Ratio 37.8 H (10-20) Glucose 124 H (70-99) mg/dl POC Glucose (70-99) mg/dl Calcium 9.2 (8.5-10.1) mg/dl C-Reactive Protein (0-0.29) mg/dl Vitamin B12 666 (193-986) pg/ml Urine Color Urine Appearance (Clear) Urine pH (4.5-7.5) Ur Specific Nora (1.000-1.030) Urine Protein (Negative) Urine Glucose (UA) (Negative) Urine Ketones (Negative) Urine Blood (Negative) Urine Nitrite (Negative) Urine Bilirubin (Negative) Urine Urobilinogen (Negative) Ur Leukocyte Esterase (Negative) Urine WBC (Auto) (0-5) /hpf Urine RBC (Auto) (0-4) /hpf U Hyaline Cast (Auto) (0-5) /lpf U Epithel Cells (Auto) (0-5) /lpf Urine Bacteria (Auto) (Negative) 03/21/20 Range/Units 20:43 WBC (4.8-10.8) K/uL RBC (4.2-5.4) M/uL Hgb (12.0-16.0) g/dL Hct (37-47) % MCV (80-100) fL MCH (25-34) pg MCHC (32-36) g/dL RDW Std Deviation (36.4-46.3) fL RDW Coeff of Brian (11.5-14.5) % Plt Count (130-400) K/uL MPV (7.4-10.4) fL Immature Gran % (Auto) % Neut % (Auto) % Lymph % (Auto) % Price % (Auto) % Eos % (Auto) % Baso % (Auto) % Neut # (Auto) (1.4-6.5) K/uL Lymph # (Auto) (1.2-3.4) K/uL Price # (Auto) (0.11-0.59) K/uL Eos # (Auto) (0-0.5) K/uL Baso # (Auto) (0-0.2) K/uL Immature Gran # (Auto) (0.00-0.02) K/uL ESR (0-21) mm/hr Sodium (136-145) mmol/L Potassium (3.5-5.1) mmol/L Chloride (98-107) mmol/L Carbon Dioxide (21-32) mmol/L Anion Gap (3-11) BUN (7-18) mg/dl Creatinine (0.6-1.2) mg/dl Est Cr Clr Drug Dosing ml/min Est GFR ( Amer) Est GFR (Non-Af Amer) BUN/Creatinine Ratio (10-20) Glucose (70-99) mg/dl POC Glucose 283 H (70-99) mg/dl Calcium (8.5-10.1) mg/dl C-Reactive Protein (0-0.29) mg/dl Vitamin B12 (193-986) pg/ml Urine Color Urine Appearance (Clear) Urine pH (4.5-7.5) Ur Specific Nora (1.000-1.030) Urine Protein (Negative) Urine Glucose (UA) (Negative) Urine Ketones (Negative) Urine Blood (Negative) Urine Nitrite (Negative) Urine Bilirubin (Negative) Urine Urobilinogen (Negative) Ur Leukocyte Esterase (Negative) Urine WBC (Auto) (0-5) /hpf Urine RBC (Auto) (0-4) /hpf U Hyaline Cast (Auto) (0-5) /lpf U Epithel Cells (Auto) (0-5) /lpf Urine Bacteria (Auto) (Negative) PG Care Time/CCT Total # of Minutes Spent Total Time Spent with Patient: Total time spent is greater than 50% in coordination of care (as documented) at patient's floor/unit and/or counseling patient: Coding Level of Care Code 76176 Subseq Hosp Care Lvl 2 Diagnoses Knee effusion, left M25.462 Cellulitis L03.90 Left leg pain M79.605 Diabetes mellitus E11.9 Chronic kidney disease, stage 3 N18.3 Hypertension I10 Hypertension type: essential hypertension Peripheral neuropathy G62.9 Hypothyroidism E03.9 Hyperlipidemia E78.5 Generalized osteoarthritis of multiple sites M15.9 Edema R60.9 Afib I48.91 Atrial fibrillation type: unspecified Anemia D64.9 Pressure ulcer L89.90 DVT prophylaxis Z29.9 (1) Afib Atrial fibrillation type: unspecified Qualified Code(s): I48.91 - Unspecified atrial fibrillation (2) Hypertension Hypertension type: essential hypertension Qualified Code(s): I10 - Essential (primary) hypertension
[2020-03-22] MEDS: CIPROFLOXACIN 250 MG TAB PO SCH (18:22)
[2020-03-22] MEDS: TORSEMIDE 20 MG TAB PO SCH (20:56)
[2020-03-22] MEDS: GABAPENTIN 100 MG CAP PO SCH (20:56)
[2020-03-22] MEDS: ACETAMINOPHEN 325 MG TAB PO PRN (23:55)
[2020-03-23] MEDS: LEVOTHYROXINE SODIUM 75 MCG TABLET PO SCH (05:49)
[2020-03-23] MEDS: HEPARIN SOD 5,000 UNIT/0.5 ML VIAL SQ SCH ×3 (05:49→21:25)
[2020-03-23 07:17] LABS: Hemoglobin 8.3 g/dL (12.0-16.0); Mean Corpuscular Hemoglobin 29.9 pg (25-34); Mean Corpuscular Hgb Conc 31.9 g/dL (32-36); Mean Corpuscular Volume 93.5 fL (80-100); Mean Platelet Volume 10.6 fL (7.4-10.4); Platelet Count 306 K/uL (130-400); RDW Coefficient of Variation 14.9 % (11.5-14.5); Red Blood Count 2.78 M/uL (4.2-5.4); White Blood Count 16.59 K/uL (4.8-10.8)
--- NOTE | 2020-03-23 09:06 | Pharmacy Report ---
Pharmacy Glycemic Short Note 2 - Date of Service March 23, 2020 - Glycemic Short BSG Results (Last 24 hours): 03/22/20 03/22/20 03/22/20 12:05 17:04 20:40 POC Glucose 154 H 124 H 126 H 03/23/20 08:03 POC Glucose 141 H OUTPATIENT ANTIDIABETIC REGIMEN: * 70/30 60 units BID * A1c 6.6% 10/22/19 ASSESSMENT: 03/23 * BSGs very well controlled yesterday, 154, 154, 124, and 126 mg/dL * Continue current Novolog parameters * Patient received 147 units of insulin (92 units of NPH and 55 units of Novolog) * Fasting BSG of 141 mg/dL is much improved from days previous * Continue current NPH dosing 03/21 * BSGs continued to be poorly controlled this * BSGs yesterday of 186, 239, 310, and 184 mg/dL * Patient received 179 units of insulin (84 units of NPH and 95 units of prandial/correctional) * Novolog parameters tightened yesterday evening * Fasting BSG this morning of 213 mg/dL * Will increase NPH to 50 units this morning and set scale for evening dose 03/18 * BSGs increased throughout the day yesterday (118, 152, 258, and 272 mg/dL) * Patient received 60 units of basal (NPH) and 74 units of prandial/correctional Novolog * Fasting BSG of 198 mg/dL this morning * Will plan to increase NPH starting this morning and tighten Novolog correction factor * NPH order missing from JUN for AM dose and wasn't discovered until late morning - NPH ordered for ~1100 * Lunch BSG of 350 mg/dL - likely due to delayed NPH administration (will cover with 5 unit IV bolus and temporarily loosen CF as to not overcorrect) 03/14 * Pt is a 84 yo female admitted with cellulitis * BSG initially low on admission up to 186 mg/dL this morning. Patient utilized 70/30 insulin 60 units BID. Initial parameters will be based on patients total outpatient dose as well as weight based dosing. PLAN FOR INPATIENT GLYCEMIC CONTROL: * Basal insulin - continue * NPH 50 units SC qAM * NPH 42 units SC qPM * Bolus insulin - continue * NovoLog per scale ACHS or Q6hrs while NPO * Correction Factor: 10 mg/dL/unit * Nutritional / Prandial insulin per carb ratio of 1 unit per 2.5 grams CHO consumed PLAN FOR DISCHARGE: * HbA1c of 6.8% suggests good outpatient glycemic control * Provided patient is not experiencing hypoglycemia as an outpatient - reasonable to continue outpatient regimen
[2020-03-23] MEDS: POLYETHYLENE (MIRALAX) 17 GM PACK PO SCH ×2 (09:22→21:25)
[2020-03-23] MEDS: INSULIN ASPART 100 UNITS/ML 3 ML PEN SC SCH ×4 (09:26→21:26)
[2020-03-23] MEDS: INSULIN HUMAN NPH SC SCH ×2 (09:26→18:39)
[2020-03-23] MEDS: CEROVITE ADV FORMULA TAB PO SCH (09:27)
[2020-03-23] MEDS: ASPIRIN 81 MG ECTAB PO SCH (09:27)
[2020-03-23] MEDS: CHOLECALCIFEROL 1,000 UNITS 25 MCG TAB PO SCH (09:27)
[2020-03-23] MEDS: gemfibroziL 600 MG TAB PO SCH (09:27)
[2020-03-23] MEDS: TORSEMIDE 20 MG TAB PO SCH (09:28)
[2020-03-23] MEDS: DOXYCYCLINE HYCLATE 100 MG CAP PO SCH ×2 (09:28→21:24)
[2020-03-23] MEDS: OMEGA-3 (PURIFIED FISH OIL) 1 GM CAP PO SCH (09:28)
[2020-03-23] MEDS: ASCORBIC ACID 500 MG TAB PO SCH (09:28)
[2020-03-23] MEDS: ACETAMINOPHEN 325 MG TAB PO PRN (09:31)
[2020-03-23 10:41] LABS: Potassium 4.3 mmol/L (3.5-5.1)
[2020-03-23 10:42] LABS: Albumin Level 1.8 gm/dl (3.4-5.0); BUN Creatinine Ratio 31.9 (10-20); Calcium 9.5 mg/dl (8.5-10.1); Creatinine Clr Calc Pharmacy 25.1 ml/min; Est GFR (African American) 26.9; Est GFR (Non-African American) 23.2
[2020-03-23 10:50] LABS: Albumin Globulin Ratio 0.3 (0.9-2); Bilirubin,Total 0.5 mg/dl (0.2-1); C Reactive Protein 23.6 mg/dl (0-0.29); Globulin 5.5 gm/dl (2.5-4.0); Total Protein 7.3 gm/dl (6.4-8.2)
--- NOTE | 2020-03-23 11:39 | Hospitalist Progress Note ---
Date of Service March 23, 2020 Assessment & Plan (1) Septic arthritis of knee: * Septic knee growing pseudomonas sensitive to Cipro - renal dosed but reportedly increased to 750 mg daily po for persistent fevers --> will decrease to 500mg daily (on 03/22) * s/p LEFT KNEE I&D washout on 03/[address] Murguia * Cultures with pseudomonas, sensitive to Cipro * Cipro, but decrease to 500mg daily (on day 6 of therapy) * Pain control with oxycodone * Inflammatory markers trending down -- ESR 44 (from 80) CRP 33 (from 35.6) on 03/19 but ESR elevated today 71 * CBC stable * Temp 38.5C evening 03/21 and temp up to 39.3C evening 03/22 * Repeat blood cultures pending * Repeat MRI femur pending -- ortho to re-eval today WBC increased to 16.5k, ESR 71, CRP 23.6 * Of note, patient with evidence of gout on synovial fluid and does not appear to have been previously addressed. * Will order 1.2mg Colchicine today and 0.6mg daily. * Consider allopurinol for prevention but will need to monitor Cr (2) Knee effusion, left: * See above * Culture with pseudomonas * Fluid analysis with evidence of gout -- colchicine (3) Cellulitis: * bilateral lower extremities * Cellulitis secondary to chronic venous stasis ulcers in the setting of chronic venous insufficiency * Per the patient she has a longstanding history of chronic venous insufficiency with chronic venous stasis ulcers. * Most recent echo in September 2018 demonstrated a left ventricular ejection fraction of 60 to 65% with normal RVSP, indicating the lower extremity swelling is most likely from venous insufficiency * Initially on IV daptomycin but switched to doxy for continued MRSA coverage * Continue cipro as above * BCx remain negative to date but repeated 03/23 * Wound RN consulted * U/S NEGATIVE for DVT LLE * Cipro as above * Temp as above -- septic gout/pseudomonas not previously treating gout -- see above (4) Left leg pain: * Xray 03/15 for increasing pain from knee to hip - shows possible stress fracture and knee effusion, follow up MRI shows fracture to be old * Pain management as above * Orthopedics consulted as above * Gout as above (5) Diabetes mellitus: * Has been having periodic issues with hyperglycemia, preop required insulin gtt, now improved. * A1c 6.8 * Holding home meds while inpatient * Pharmacy Glycemic consult (6) Chronic kidney disease, stage 3: * Patient follows with Dr. Bhatt for chronic kidney disease. Baseline creatinine appears to be 1.5 - 1.8. * Avoid nephrotoxic med * Cr bumped to 1.95 -- will hold torsemide * BMP in AM (7) Hypertension: * hold torsemide as above * BP stable 145/68 * Continue to monitor (8) Peripheral neuropathy: * PT OT ordered * Fall precautions * Continue home gabapentin * B12 666 (9) Hypothyroidism: * Last TSH 03/13/20 1.8 * Continue levothyroxine 75 mcg p.o. every morning (10) Hyperlipidemia: * Last lipid panel October 2019 * Continue gemfibrozil (11) Generalized osteoarthritis of multiple sites: * PT OT * Pain control (12) Edema: * torsemide on hold * edema controlled presently (13) Afib: * Patient had 1 episode of documented atrial fibrillation during an admission September 2018, she was very acutely ill at that time. She spontaneously converted with 1 dose of IV Lopressor and has had no further events after that. She was on metoprolol 25 mg daily and was not started on anticoagulation and maintain normal sinus rhythm. Subsequently Toprol was stopped and she has since had no episodes of atrial fibrillation. * Monitor for development of A. fib (14) Anemia: * of chronic disease. Stable, baseline appears to be around 8.5 - 11 (15) Pressure ulcer: * Stage 3 Pressure ulcer of left & right medial buttock, POA * Wound care nurse consulted * Turn and reposition frequently * Per nursing, no worsening of wound (16) DVT prophylaxis: * heparin subq Hypoxia * 89% on RA overnight, currently 95% on RA * Overnight pulse ox without desaturation * CXR with L basilar atelectasis/scarring * 93% on RA * No further desat events * Continued encouragement for Incentive Spirometer Updated daughter Tila evening 03/22 and will update this evening once MRI obtained to review plan of care Dispo: Will need rehab at d/c, possible [facility] when insurance auth received Will need to follow PT/OT notes prior to discharge. Admission and Anticipated Discharge Date Admission Date: March 15, 2020 Subjective Patient evaluated this morning. Much more alert/oriented today, but having significant pain in her leg/knee with any movement. Discussed obtaining MRI to see about possible hemarthrosis. Patient will need ativan prior to study. Fever last night to 39.3C and repeat cultures drawn. Eating/drinking without issue.. No chest pain , shortness of breath, abdominal pain, nausea or vomiting. BM yesterday. Upon further discussion with orthopedic PA, patient did have evidence of gout on synovial fluid but had not been treated for this in the past, only for her pseudomonas. Will treat with colchicine but will need to carefully monitor her kidney function. Review of Systems Review of Systems: All systems reviewed & are unremarkable except as noted in HPI & below Physical Exam Constitutional: WD/WN, vitals as above cooperative and comfortable; no acute distress Eyes: + anicteric sclerae and PERRL ENMT: Ears: no hearing impairment Mallampati Class: II Neck: normal visual inspection and trachea midline Respiratory: normal respiratory effort Auscultation: lungs clear to auscultation bilaterally and + diminished lung sounds (bases, improved) Cardiovascular: Rate/Rhythm: regular rate and regular rhythm Extremities: + edema (pedal,L>R) Gastrointestinal (Abdomen): normal bowel sounds, soft, nontender, no hepatosplenomegaly Musculoskeletal: zeke wrap to LLE with blood noted to medial aspect decreased swelling compared to yesterday medial aspect and lower extremity significantly tender to palpation able to plantar/dorsiflex but with increased pain to her knee with flexion/extension pulses weak but palpable calves tender to palpation with improving cellulitis NVI b/l buttock erythema Neurologic: moves all extremities Psychiatric: Orientation: alert and oriented x 3 Results & Data Results & Data ([facility]) Vital Signs (Past 12 Hours) Vital Signs Temp Pulse Resp BP Pulse Ox 03/23/20 06:17 36.5 C 79 19 137/69 93 03/23/20 00:51 37.7 C H 03/22/20 23:43 39.2 C H 95 H 17 145/53 H 91 Laboratory Results 03/23/20 03/23/20 03/23/20 Range/Units 11:39 09:59 09:59 WBC (4.8-10.8) K/uL RBC (4.2-5.4) M/uL Hgb (12.0-16.0) g/dL Hct (37-47) % MCV (80-100) fL MCH (25-34) pg MCHC (32-36) g/dL RDW Std Deviation (36.4-46.3) fL RDW Coeff of Brian (11.5-14.5) % Plt Count (130-400) K/uL MPV (7.4-10.4) fL ESR 71 H (0-21) mm/hr Sodium 136 (136-145) mmol/L Potassium 4.3 (3.5-5.1) mmol/L Chloride 100 (98-107) mmol/L Carbon Dioxide 28 (21-32) mmol/L Anion Gap 8.0 (3-11) BUN 62 H (7-18) mg/dl Creatinine 1.95 H (0.6-1.2) mg/dl Est Cr Clr Drug Dosing 25.1 ml/min Est GFR ( Amer) 26.9 Est GFR (Non-Af Amer) 23.2 BUN/Creatinine Ratio 31.9 H (10-20) Glucose 250 H (70-99) mg/dl POC Glucose 158 H (70-99) mg/dl Calcium 9.5 (8.5-10.1) mg/dl Total Bilirubin 0.5 (0.2-1) mg/dl AST 38 H (15-37) U/L ALT 19 (12-78) U/L Alkaline Phosphatase 139 H (45-117) U/L C-Reactive Protein 23.60 H (0-0.29) mg/dl Total Protein 7.3 (6.4-8.2) gm/dl Albumin 1.8 L (3.4-5.0) gm/dl Globulin 5.5 H (2.5-4.0) gm/dl Albumin/Globulin Ratio 0.3 L (0.9-2) 03/23/20 03/23/20 03/22/20 Range/Units 08:03 07:08 20:40 WBC 16.59 H (4.8-10.8) K/uL RBC 2.78 L (4.2-5.4) M/uL Hgb 8.3 L (12.0-16.0) g/dL Hct 26.0 L (37-47) % MCV 93.5 (80-100) fL MCH 29.9 (25-34) pg MCHC 31.9 L (32-36) g/dL RDW Std Deviation 51.0 H (36.4-46.3) fL RDW Coeff of Brian 14.9 H (11.5-14.5) % Plt Count 306 (130-400) K/uL MPV 10.6 H (7.4-10.4) fL ESR (0-21) mm/hr Sodium (136-145) mmol/L Potassium (3.5-5.1) mmol/L Chloride (98-107) mmol/L Carbon Dioxide (21-32) mmol/L Anion Gap (3-11) BUN (7-18) mg/dl Creatinine (0.6-1.2) mg/dl Est Cr Clr Drug Dosing ml/min Est GFR ( Amer) Est GFR (Non-Af Amer) BUN/Creatinine Ratio (10-20) Glucose (70-99) mg/dl POC Glucose 141 H 126 H (70-99) mg/dl Calcium (8.5-10.1) mg/dl Total Bilirubin (0.2-1) mg/dl AST (15-37) U/L ALT (12-78) U/L Alkaline Phosphatase (45-117) U/L C-Reactive Protein (0-0.29) mg/dl Total Protein (6.4-8.2) gm/dl Albumin (3.4-5.0) gm/dl Globulin (2.5-4.0) gm/dl Albumin/Globulin Ratio (0.9-2) 12/15/20 Range/Units 17:04 WBC (4.8-10.8) K/uL RBC (4.2-5.4) M/uL Hgb (12.0-16.0) g/dL Hct (37-47) % MCV (80-100) fL MCH (25-34) pg MCHC (32-36) g/dL RDW Std Deviation (36.4-46.3) fL RDW Coeff of Brian (11.5-14.5) % Plt Count (130-400) K/uL MPV (7.4-10.4) fL ESR (0-21) mm/hr Sodium (136-145) mmol/L Potassium (3.5-5.1) mmol/L Chloride (98-107) mmol/L Carbon Dioxide (21-32) mmol/L Anion Gap (3-11) BUN (7-18) mg/dl Creatinine (0.6-1.2) mg/dl Est Cr Clr Drug Dosing ml/min Est GFR ( Amer) Est GFR (Non-Af Amer) BUN/Creatinine Ratio (10-20) Glucose (70-99) mg/dl POC Glucose 124 H (70-99) mg/dl Calcium (8.5-10.1) mg/dl Total Bilirubin (0.2-1) mg/dl AST (15-37) U/L ALT (12-78) U/L Alkaline Phosphatase (45-117) U/L C-Reactive Protein (0-0.29) mg/dl Total Protein (6.4-8.2) gm/dl Albumin (3.4-5.0) gm/dl Globulin (2.5-4.0) gm/dl Albumin/Globulin Ratio (0.9-2) PG Care Time/CCT Total # of Minutes Spent Total Time Spent with Patient: Total time spent is greater than 50% in coordination of care (as documented) at patient's floor/unit and/or counseling patient: Coding Level of Care Code 86323 Subseq Hosp Care Lvl 3 Diagnoses Septic arthritis of knee M00.9 Knee effusion, left M25.462 Cellulitis L03.90 Left leg pain M79.605 Diabetes mellitus E11.9 Chronic kidney disease, stage 3 N18.3 Hypertension I10 Hypertension type: essential hypertension Peripheral neuropathy G62.9 Hypothyroidism E03.9 Hyperlipidemia E78.5 Generalized osteoarthritis of multiple sites M15.9 Edema R60.9 Afib I48.91 Atrial fibrillation type: unspecified Anemia D64.9 Pressure ulcer L89.90 DVT prophylaxis Z29.9 (1) Hypertension Hypertension type: essential hypertension Qualified Code(s): I10 - Essential (primary) hypertension (2) Afib Atrial fibrillation type: unspecified Qualified Code(s): I48.91 - Unspecified atrial fibrillation
[2020-03-23] MEDS ORDERED: LORazepam 0.5 MG/1 ML VIAL IV STA (13:36)
--- NOTE | 2020-03-23 14:05 | Orthopedic Progress Note ---
Date of Service March 23, 2020 Assessment & Plan (1) Septic arthritis of knee: Postop day 7 status post arthroscopic irrigation and debridement of infected left knee. Pseudomonas noted on knee aspirate. Patient currently on ciprofloxacin 500 mg p.o. twice daily New blood cultures are pending. I will have Dr Murguia see her today to reassess. Will await his input. The knee does not look as tensely swollen as before. She continues to have some pain with palpation and ROM of the knee. MRI ordered of the LLE by Med service. Admission and Anticipated Discharge Date Admission Date: March 15, 2020 Subjective Asked to see patient due to spike in her temperature and patient complaining of pain in the lower extremity. Patient underwent arthroscopic irrigation and debridement by 1 week ago for Pseudomonas infection in the knee as well as noted gout. Over the last several days, her white count has been slowly steadily climbing. Current white count is 16 today. Not appear that she has had any further spikes in her temperature. Highest was 39.2 last night at midnight. Currently she is sitting up in bed. She states that she has continue d pain in her left lower extremity. She does not think that it is any better since the surgery. Complaining of some thigh pain in the upper thigh of the left lower extremity. Physical Exam Physical Exam: I pulled her dressing down to view the arthroscopic portals. Sutures are in place. She has a bloody drainage noted on the medial portal dressing. There is what appears to be a fracture blister that has broken near that portal. There is no active bleeding at this time. Lateral portal is benign. Her knee actually looks less swollen than it was when I first saw her last week. She is tender on palpation. She has some tenderness on palpation of the upper thigh. She continues with the venous stasis issues of her lower extremity and cellulitis of that leg. Left foot remains moderately swollen. Results & Data ([facility]) Vital Signs (Past 12 Hours) Vital Signs Temp Pulse Resp BP Pulse Ox 03/23/20 06:17 36.5 C 79 19 137/69 93 Laboratory Results Laboratory Results WBC 16.59 K/uL (4.8-10.8) H 03/23/20 07:08 RBC 2.78 M/uL (4.2-5.4) L 03/23/20 07:08 Hgb 8.3 g/dL (12.0-16.0) L 03/23/20 07:08 Hct 26.0 % (37-47) L 03/23/20 07:08 MCV 93.5 fL (80-100) 03/23/20 07:08 MCH 29.9 pg (25-34) 03/23/20 07:08 MCHC 31.9 g/dL (32-36) L 03/23/20 07:08 RDW Std Deviation 51.0 fL (36.4-46.3) H 03/23/20 07:08 RDW Coeff of Brian 14.9 % (11.5-14.5) H 03/23/20 07:08 Plt Count 306 K/uL (130-400) 03/23/20 07:08 MPV 10.6 fL (7.4-10.4) H 03/23/20 07:08 Immature Gran % (Auto) 3.0 % 03/22/20 05:43 Neut % (Auto) 63.7 % 03/22/20 05:43 Lymph % (Auto) 21.4 % 03/22/20 05:43 Foster % (Auto) 8.5 % 03/22/20 05:43 Eos % (Auto) 3.0 % 03/22/20 05:43 Baso % (Auto) 0.4 % 03/22/20 05:43 Neut # (Auto) 9.03 K/uL (1.4-6.5) H 03/22/20 05:43 Lymph # (Auto) 3.04 K/uL (1.2-3.4) 03/22/20 05:43 Foster # (Auto) 1.20 K/uL (0.11-0.59) H 03/22/20 05:43 Eos # (Auto) 0.42 K/uL (0-0.5) 03/22/20 05:43 Baso # (Auto) 0.06 K/uL (0-0.2) 03/22/20 05:43 Immature Gran # (Auto) 0.43 K/uL (0.00-0.02) H 03/22/20 05:43 Absolute Nucleated RBC 0.02 K/uL (0-0) H 03/21/20 07:49 Nucleated RBC % (auto) 0.1 % 03/21/20 07:49 ESR 71 mm/hr (0-21) H 03/23/20 09:59 PT 12.4 Seconds (9.0-12.0) H 03/13/20 23:38 INR 1.2 (0.9-1.1) H 03/13/20 23:38 APTT 30.3 Seconds (21.0-31.0) 03/13/20 23:38 PTT Ratio 1.1 03/13/20 23:38 Sodium 136 mmol/L (136-145) 03/23/20 09:59 Potassium 4.3 mmol/L (3.5-5.1) 03/23/20 09:59 Chloride 100 mmol/L (98-107) 03/23/20 09:59 Carbon Dioxide 28 mmol/L (21-32) 03/23/20 09:59 Anion Gap 8.0 (3-11) 03/23/20 09:59 BUN 62 mg/dl (7-18) H 03/23/20 09:59 Creatinine 1.95 mg/dl (0.6-1.2) H 03/23/20 09:59 Est Cr Clr Drug Dosing 25.1 ml/min 03/23/20 09:59 Est GFR ( Amer) 26.9 03/23/20 09:59 Est GFR (Non-Af Amer) 23.2 03/23/20 09:59 BUN/Creatinine Ratio 31.9 (10-20) H 03/23/20 09:59 Glucose 250 mg/dl (70-99) H 03/23/20 09:59 POC Glucose 158 mg/dl (70-99) H 03/23/20 11:39 Estimat Average Glucose 148 mg/dl 03/15/20 05:33 Hemoglobin A1c 6.8 % (4.5-5.6) H 03/15/20 05:33 Lactate 1.0 mmol/L (0.4-2.0) 03/13/20 23:38 Calcium 9.5 mg/dl (8.5-10.1) 03/23/20 09:59 Total Bilirubin 0.5 mg/dl (0.2-1) 03/23/20 09:59 AST 38 U/L (15-37) H 03/23/20 09:59 ALT 19 U/L (12-78) 03/23/20 09:59 Alkaline Phosphatase 139 U/L (45-117) H 03/23/20 09:59 C-Reactive Protein 23.60 mg/dl (0-0.29) H 03/23/20 09:59 Total Protein 7.3 gm/dl (6.4-8.2) 03/23/20 09:59 Albumin 1.8 gm/dl (3.4-5.0) L 03/23/20 09:59 Globulin 5.5 gm/dl (2.5-4.0) H 03/23/20 09:59 Albumin/Globulin Ratio 0.3 (0.9-2) L 03/23/20 09:59 Vitamin B12 666 pg/ml (193-986) 03/22/20 05:43 Beta-Hydroxybutyric Acd 3.23 mg/dl (0.2-2.81) H 03/16/20 05:58 TSH 1.800 uIu/ml (0.300-4.500) 03/13/20 23:38 Urine Color Yellow 03/22/20 11:25 Urine Appearance Clear (Clear) 03/22/20 11:25 Urine pH 5.0 (4.5-7.5) 03/22/20 11:25 Ur Specific Udall 1.021 (1.000-1.030) 03/22/20 11:25 Urine Protein Negative (Negative) 03/22/20 11:25 Urine Glucose (UA) Negative (Negative) 03/22/20 11:25 Urine Ketones Negative (Negative) 03/22/20 11:25 Urine Blood Negative (Negative) 03/22/20 11:25 Urine Nitrite Negative (Negative) 03/22/20 11:25 Urine Bilirubin Negative (Negative) 03/22/20 11:25 Urine Urobilinogen Negative (Negative) 03/22/20 11:25 Ur Leukocyte Esterase 2+ (Negative) H 03/22/20 11:25 Urine WBC (Auto) 10-30 /hpf (0-5) H 03/22/20 11:25 Urine RBC (Auto) 5-10 /hpf (0-4) H 03/22/20 11:25 U Hyaline Cast (Auto) 1-5 /lpf (0-5) 03/22/20 11:25 U Epithel Cells (Auto) >30 /lpf (0-5) H 03/22/20 11:25 Urine Bacteria (Auto) Negative (Negative) 03/22/20 11:25 Fld Lyme DNA (PCR) Not detected (Not Detected) 03/15/20 15:54 Synovial Source Cancelled 03/16/20 11:09 Synovial Color Cancelled 03/16/20 11:09 Synovial Appearance Cancelled 03/16/20 11:09 Synovial WBC Cancelled 03/16/20 11:09 Synovial RBC Cancelled 03/16/20 11:09 Synov Polynuclear WBCs Cancelled 03/16/20 11:09 Synov Mononuclear WBCs Cancelled 03/16/20 11:09 Synovial Other Cells Cancelled 03/16/20 11:09 Synovial Polynuclear % Cancelled 03/16/20 11:09 Synovial Mononuclear % Cancelled 03/16/20 11:09 Synovial Crystals Cancelled 03/16/20 11:09 Nasal Screen MRSA (PCR) Negative (Negative) 03/14/20 02:54 Lyme Specimen Source Synovial Fluid 03/15/20 15:54 COVID-19 Eval Order Covid19 IDNow Count includes the [facility] 03/19/20 01:15 SARS-CoV-2 Ag (Rapid) Negative (Negative) 03/14/20 02:13 SARS-CoV-2, RNA, NAAT NEGATIVE (NEGATIVE) 03/19/20 01:15
[2020-03-23] MEDS ORDERED: COLCHICINE 0.6 MG TAB PO ONE (14:36)
[2020-03-23] MEDS ORDERED: COLCHICINE 0.6 MG TAB PO STA (15:03)
--- NOTE | 2020-03-23 16:05 | Magnetic Resonance Report ---
MR femur LT wo con HISTORY: Left leg pain. increasing pain, fever, TECHNIQUE: Multiplanar multisequence MRI of the left femur was performed without the use of intraveno us contrast. COMPARISON STUDY: Left femur MRI 03/15/2020. FINDINGS: Normal marrow signal intensity seen throughout the visualized osseous structures. No acute fracture or dislocation within the left femur. 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 This remains unchanged. Old fractures of th e proximal and distal left femur again noted. There is progression of the subcutaneous edema within t he left thigh. Small left knee effusion persists. There is near complete fatty atrophy of the quadric eps muscles and moderate to severe fatty atrophy of the hamstring and adductor muscles. This is simil ar to the prior study. There is mild edema within the residual hamstring muscles. This could be due t o denervation injury or a low-grade myositis. No loculated fluid collections to suggest an abscess. IMPRESSION: 1. Old, healed left femoral fractures. No acute fractures identified. 2. Progression of the moderate subcutaneous edema within the left thigh. 3. Small left knee effusion persists. 4. Marked fatty atrophy of the left thigh musculature. There is now mild edema within the residual ryan mstring muscles. This could be due to the patient's edematous state or represent a denervation injury or a low-grade myositis. 5. No loculated fluid collections to suggest an abscess. 6. Chronic deformity within the left hip is again noted. ACT 112: Negative or not required by law. Electronically signed by: Chapin Nielsen M.D. 03/23/2020 4:03 PM
[2020-03-23] MEDS: CIPROFLOXACIN 500 MG TAB PO SCH (18:37)
[2020-03-23] MEDS: GABAPENTIN 100 MG CAP PO SCH (21:24)
[2020-03-24 05:31] LABS: Basophils # (auto) 0.03 K/uL (0-0.2); Basophils % (auto) 0.2 %; Eosinophils # (auto) 0.37 K/uL (0-0.5); Eosinophils % (auto) 2.1 %; Hematocrit (blood only) 26.7 % (37-47); Hemoglobin 8.5 g/dL (12.0-16.0); Immature Granulocytes # (auto) 0.32 K/uL (0.00-0.02); Immature Granulocytes % (auto) 1.8 %; Lymphocytes # (auto) 2.89 K/uL (1.2-3.4); Lymphocytes % (auto) 16.6 %; Mean Corpuscular Hemoglobin 29.6 pg (25-34); Mean Corpuscular Hgb Conc 31.8 g/dL (32-36); Mean Platelet Volume 10.7 fL (7.4-10.4); Monocytes # (auto) 1.25 K/uL (0.11-0.59); Monocytes % (auto) 7.2 %; Neutrophils # (auto) 12.51 K/uL (1.4-6.5); Neutrophils % (auto) 72.1 %; Nucleated RBC # (auto) 0.02 K/uL (0-0); Nucleated RBC % (auto) 0.1 %; Platelet Count 349 K/uL (130-400); RDW Coefficient of Variation 15.2 % (11.5-14.5); RDW Standard Deviation 51.5 fL (36.4-46.3); Red Blood Count 2.87 M/uL (4.2-5.4); White Blood Count 17.37 K/uL (4.8-10.8)
[2020-03-24] MEDS: HEPARIN SOD 5,000 UNIT/0.5 ML VIAL SQ SCH ×3 (05:45→21:49)
[2020-03-24] MEDS: LEVOTHYROXINE SODIUM 75 MCG TABLET PO SCH (05:45)
[2020-03-24 06:04] LABS: BUN Creatinine Ratio 35.9 (10-20); Calcium 9.2 mg/dl (8.5-10.1); Creatinine Clr Calc Pharmacy 24.9 ml/min; Est GFR (African American) 26.6; Est GFR (Non-African American) 22.9; Potassium 4.4 mmol/L (3.5-5.1)
[2020-03-24 06:13] LABS: C Reactive Protein 24.5 mg/dl (0-0.29)
[2020-03-24] MEDS ORDERED: COLCHICINE 0.6 MG TAB PO SCH (09:00)
--- NOTE | 2020-03-24 09:07 | Pharmacy Report ---
Pharmacy Glycemic Short Note 2 - Date of Service March 24, 2020 - Glycemic Short BSG Results (Last 24 hours): 03/23/20 03/23/20 03/23/20 09:59 11:39 17:08 Glucose 250 H POC Glucose 158 H 96 03/23/20 03/24/20 03/24/20 20:44 05:14 08:11 Glucose 110 H POC Glucose 143 H 164 H OUTPATIENT ANTIDIABETIC REGIMEN: * 70/30 60 units BID * A1c 6.6% 10/22/19 ASSESSMENT: 03/24 * Patient is currently receiving an average of 178 units of insulin per day * 92 units of basal insulin * 86 units of prandial/correctional insulin * BSGs ranging 96-158 over the past 24hrs * Anticipating insulin regimen will need decrease slightly for the next 24hrs d/t : * AM Fasting BSG = 110 mg/dl and trending downwards. Will slightly decrease PM dose of NPH to prevent AM fasting low * Total daily dose = is slightly weighted towards basal insulin. Decreasing PM dose will help evenly re-distribute regimen 50%:50% basal:prandial to prevent hypo/hyperglycemia * Post-prandial BSGs are in goal range. No changes needed 03/23 * BSGs very well controlled yesterday, 154, 154, 124, and 126 mg/dL * Continue current Novolog parameters * Patient received 147 units of insulin (92 units of NPH and 55 units of Novol og) * Fasting BSG of 141 mg/dL is much improved from days previous * Continue current NPH dosing 03/21 * BSGs continued to be poorly controlled this weekend * BSGs yesterday of 186, 239, 310, and 184 mg/dL * Patient received 179 units of insulin (84 units of NPH and 95 units of prandial/correctional) * Novolog parameters tightened yesterday evening * Fasting BSG this morning of 213 mg/dL * Will increase NPH to 50 units this morning and set scale for evening dose 03/18 * BSGs increased throughout the day yesterday (118, 152, 258, and 272 mg/dL) * Patient received 60 units of basal (NPH) and 74 units of prandial/correctional Novolog * Fasting BSG of 198 mg/dL this morning * Will plan to increase NPH starting this morning and tighten Novolog correction factor * NPH order missing from JUN for AM dose and wasn't discovered until late morning - NPH ordered for ~1100 * Lunch BSG of 350 mg/dL - likely due to delayed NPH administration (will cover with 5 unit IV bolus and temporarily loosen CF as to not overcorrect) 03/14 * Pt is a 84 yo female admitted with cellulitis * BSG initially low on admission up to 186 mg/dL this morning. Patient utilized 70/30 insulin 60 units BID. Initial parameters will be based on patients total outpatient dose as well as weight based dosing. PLAN FOR INPATIENT GLYCEMIC CONTROL: * Basal insulin -decrease PM dose * NPH 50 units SC qAM * NPH 40 units SC qPM * Bolus insulin - continue * NovoLog per scale ACHS or Q6hrs while NPO * Correction Factor: 10 mg/dL/unit * Nutritional / Prandial insulin per carb ratio of 1 unit per 2.5 grams CHO consumed PLAN FOR DISCHARGE: * HbA1c of 6.8% suggests good outpatient glycemic control * Provided patient is not experiencing hypoglycemia as an outpatient - reasonable to continue outpatient regimen
[2020-03-24] MEDS: INSULIN ASPART 100 UNITS/ML 3 ML PEN SC SCH ×4 (09:08→21:25)
[2020-03-24] MEDS: POLYETHYLENE (MIRALAX) 17 GM PACK PO SCH ×2 (09:10→21:22)
[2020-03-24] MEDS: ASPIRIN 81 MG ECTAB PO SCH (09:11)
[2020-03-24] MEDS: TORSEMIDE 20 MG TAB PO SCH ×2 (09:11→21:22)
[2020-03-24] MEDS: gemfibroziL 600 MG TAB PO SCH (09:11)
[2020-03-24] MEDS: CEROVITE ADV FORMULA TAB PO SCH (09:11)
[2020-03-24] MEDS: OMEGA-3 (PURIFIED FISH OIL) 1 GM CAP PO SCH (09:11)
[2020-03-24] MEDS: DOXYCYCLINE HYCLATE 100 MG CAP PO SCH ×2 (09:11→21:48)
[2020-03-24] MEDS: INSULIN HUMAN NPH SC SCH (09:11)
[2020-03-24] MEDS: ASCORBIC ACID 500 MG TAB PO SCH (09:11)
[2020-03-24 09:50] LABS: Albumin Level 1.8 gm/dl (3.4-5.0); Bilirubin Direct 0.2 mg/dl (0-0.2); Bilirubin,Total 0.4 mg/dl (0.2-1); Total Protein 7.2 gm/dl (6.4-8.2)
[2020-03-24 10:13] LABS: Lyme Ab IgG w/WB Rflx Negative (Negative); Lyme Ab IgM w/WB Rflx Negative (Negative)
--- NOTE | 2020-03-24 10:18 | Hospitalist Progress Note ---
Date of Service March 24, 2020 Assessment & Plan (1) Septic arthritis of knee: * Septic knee growing pseudomonas sensitive to Cipro - renal dosed but reportedly increased to 750 mg daily po for persistent fevers --> will decrease to 500mg daily (on 03/22) * s/p LEFT KNEE I&D washout on 03/[address] Murguia * Cultures with pseudomonas, sensitive to Cipro * Cipro, but decrease to 500mg daily (on day 7 of therapy) * Pain control with oxycodone * Blood cultures NGTD * MRI with edema of hamstrings, likely related to edematous state last evening (torsemide was resumed) * Lyme negative, peripheral smear negative for evidence anaplasmosis. ck 24 Of note, patient with evidence of gout on synovial fluid and had not been previously addressed. * Given 1.2mg Colchicine 03/23 and 0.6mg * Consider allopurinol QOD for renal function * h/h stable * WBC elevated to 17k, fever >39C last evening (2) Knee effusion, left: * See above * Culture with pseudomonas * Fluid analysis with evidence of gout -- colchicine as above, allopurinol (3) Cellulitis: * bilateral lower extremities * Cellulitis secondary to chronic venous stasis ulcers in the setting of chronic venous insufficiency * Per the patient she has a longstanding history of chronic venous insufficiency with chronic venous stasis ulcers. * Most recent echo in September 2018 demonstrated a left ventricular ejection fraction of 60 to 65% with normal RVSP, indicating the lower extremity swelling is most likely from venous insufficiency * Initially on IV daptomycin but switched to doxy for continued MRSA coverage * Continue cipro as above * BCx remain negative to date but repeated 03/23 * Wound RN consulted * U/S NEGATIVE for DVT LLE * Cipro as above * Temp as above -- septic gout/pseudomonas not previously treating gout -- see above (4) Left leg pain: * Xray 03/15 for increasing pain from knee to hip - shows possible stress fracture and knee effusion, follow up MRI shows fracture to be old * Pain management as above * Orthopedics consulted as above * Gout as above (5) Diabetes mellitus: * Has been having periodic issues with hyperglycemia, preop required insulin gtt, now improved. * A1c 6.8 * Holding home meds while inpatient * Pharmacy Glycemic consult (6) Chronic kidney disease, stage 3: * Patient follows with Dr. Bhatt for chronic kidney disease. Baseline creatinine appears to be 1.5 - 1.8. * Avoid nephrotoxic med * Cr 1.9 * IVF with diuretic for hypercalcemia. Will also give calcitonin x 1 this evening and monitor renal function in AM * Nephrology consulted -- appreciate assistance * BMP in AM (7) Hypertension: * Torsemide/IVF as above * BP 103/51 * Continue to monitor (8) Peripheral neuropathy: * PT OT ordered * Fall precautions * Continue home gabapentin * B12 666 (9) Hypothyroidism: * Last TSH 03/13/20 1.8 * Continue levothyroxine 75 mcg p.o. every morning (10) Hyperlipidemia: * Last lipid panel October 2019 * Continue gemfibrozil (11) Generalized osteoarthritis of multiple sites: * PT OT * Pain control -- patient did not receive pain medication since 03/22 and discussed please asking prior to therapy so that she is able to participate more (12) Edema: * torsemide on hold * edema controlled presently (13) Afib: * Patient had 1 episode of documented atrial fibrillation during an admission September 2018, she was very acutely ill at that time. She spontaneously converted with 1 dose of IV Lopressor and has had no further events after that. She was on metoprolol 25 mg daily and was not started on anticoagulation and maintain normal sinus rhythm. Subsequently Toprol was stopped and she has since had no episodes of atrial fibrillation. * Monitor for development of A. fib (14) Anemia: * of chronic disease. Stable, baseline appears to be around 8.5 - 11 (15) Pressure ulcer: * Stage 3 Pressure ulcer of left & right medial buttock, POA * Wound care nurse consulted * Turn and reposition frequently * Improving (16) DVT prophylaxis: * heparin subq Hypoxia * 89% on RA overnight, currently 95% on RA * Overnight pulse ox without desaturation * CXR with L basilar atelectasis/scarring * 96% on RA * No further desat events * Continued encouragement for Incentive Spirometer Updated daughter Tila evening 03/23 Dispo: Jessica at d/c for rehab Will need to follow PT/OT notes prior to discharge. Waiting for bed Admission and Anticipated Discharge Date Admission Date: March 15, 2020 Subjective Patient evaluated this morning. Feeling a little better as far as pain goes after receiving colchicine yesterday but still very painful with movement. Did have some increased edema and discussed resuming water pill to help with swelling. She had not received PO pain medication since evening of 03/22. She was up with nursing this morning and therapy to get to the chair. Discussed requesting paib medication prior to therapy to help get more out of it. No reported fevers (although did have temp 39.4C last evening), chest pain, shortness of breath, abdominal pain, n/v at this time. Discussed monitoring labs in AM and hopeful discharge to rehab at [facility]. Wanted to know if glasses delivered this morning by her son. I discussed with daughter last evening and will check with charge and get for patient if delivered. Questions/concerns addressed at this time. Review of Systems Review of Systems: All systems reviewed & are unremarkable except as noted in HPI & below Physical Exam Constitutional: cooperative and comfortable; no acute distress Eyes: + anicteric sclerae and PERRL ENMT: Ears: no hearing impairment Mallampati Class: II Neck: normal visual inspection and trachea midline Respiratory: normal respiratory effort Auscultation: lungs clear to auscultation bilaterally Cardiovascular: Rate/Rhythm: regular rate and regular rhythm Extremities: + edema (pedal,L>R) Gastrointestinal (Abdomen): normal bowel sounds, soft, nontender, no hepatosplenomegaly Musculoskeletal: zeke wrap to LLE with blood noted to medial aspect decreased swelling compared to yesterday medial aspect and lower extremity tender to palpation, but less today able to plantar/dorsiflex but with decreased pain to her knee with flexion/extension pulses weak but palpable calves tender to palpation with improving cellulitis NVI b/l buttock erythema improving Neurologic: PERRL, EOMI, accommodation nl, no face palsy, no dysarthria Psychiatric: Orientation: alert and oriented x 3 Lymphatic: no lymphadenopathy Results & Data Results & Data ([facility]) Vital Signs (Past 12 Hours) Vital Signs Temp Pulse Pulse Resp BP Pulse Ox 03/24/20 07:05 36.8 C 81 18 148/65 H 94 03/24/20 06:55 36.8 C 86 16 123/61 94 03/23/20 23:44 39.4 C H 96 H 16 132/55 L 90 Laboratory Results 03/24/20 03/24/20 03/24/20 Range/Units 17:28 17:25 12:10 WBC (4.8-10.8) K/uL RBC (4.2-5.4) M/uL Hgb (12.0-16.0) g/dL Hct (37-47) % MCV (80-100) fL MCH (25-34) pg MCHC (32-36) g/dL RDW Std Deviation (36.4-46.3) fL RDW Coeff of Brian (11.5-14.5) % Plt Count (130-400) K/uL MPV (7.4-10.4) fL Immature Gran % (Auto) % Neut % (Auto) % Lymph % (Auto) % Starke % (Auto) % Eos % (Auto) % Baso % (Auto) % Neut # (Auto) (1.4-6.5) K/uL Lymph # (Auto) (1.2-3.4) K/uL Starke # (Auto) (0.11-0.59) K/uL Eos # (Auto) (0-0.5) K/uL Baso # (Auto) (0-0.2) K/uL Immature Gran # (Auto) (0.00-0.02) K/uL Absolute Nucleated RBC (0-0) K/uL Nucleated RBC % (auto) % ESR (0-21) mm/hr Sodium (136-145) mmol/L Potassium (3.5-5.1) mmol/L Chloride (98-107) mmol/L Carbon Dioxide (21-32) mmol/L Anion Gap (3-11) BUN (7-18) mg/dl Creatinine (0.6-1.2) mg/dl Est Cr Clr Drug Dosing ml/min Est GFR ( Amer) Est GFR (Non-Af Amer) BUN/Creatinine Ratio (10-20) Glucose (70-99) mg/dl POC Glucose 310 H* 322 H* 163 H (70-99) mg/dl Calcium (8.5-10.1) mg/dl Total Bilirubin (0.2-1) mg/dl Direct Bilirubin (0-0.2) mg/dl AST (15-37) U/L ALT (12-78) U/L Alkaline Phosphatase (45-117) U/L Total Creatine Kinase (26-192) U/L C-Reactive Protein (0-0.29) mg/dl Total Protein (6.4-8.2) gm/dl Albumin (3.4-5.0) gm/dl Anaplasma Smear Lyme Disease IgG Ab (Negative) Lyme Disease IgM Ab (Negative) 03/24/20 03/24/20 03/24/20 Range/Units 08:56 08:56 08:11 WBC (4.8-10.8) K/uL RBC (4.2-5.4) M/uL Hgb (12.0-16.0) g/dL Hct (37-47) % MCV (80-100) fL MCH (25-34) pg MCHC (32-36) g/dL RDW Std Deviation (36.4-46.3) fL RDW Coeff of Brian (11.5-14.5) % Plt Count (130-400) K/uL MPV (7.4-10.4) fL Immature Gran % (Auto) % Neut % (Auto) % Lymph % (Auto) % Starke % (Auto) % Eos % (Auto) % Baso % (Auto) % Neut # (Auto) (1.4-6.5) K/uL Lymph # (Auto) (1.2-3.4) K/uL Starke # (Auto) (0.11-0.59) K/uL Eos # (Auto) (0-0.5) K/uL Baso # (Auto) (0-0.2) K/uL Immature Gran # (Auto) (0.00-0.02) K/uL Absolute Nucleated RBC (0-0) K/uL Nucleated RBC % (auto) % ESR (0-21) mm/hr Sodium (136-145) mmol/L Potassium (3.5-5.1) mmol/L Chloride (98-107) mmol/L Carbon Dioxide (21-32) mmol/L Anion Gap (3-11) BUN (7-18) mg/dl Creatinine (0.6-1.2) mg/dl Est Cr Clr Drug Dosing ml/min Est GFR ( Amer) Est GFR (Non-Af Amer) BUN/Creatinine Ratio (10-20) Glucose (70-99) mg/dl POC Glucose 164 H (70-99) mg/dl Calcium (8.5-10.1) mg/dl Total Bilirubin 0.4 (0.2-1) mg/dl Direct Bilirubin 0.2 (0-0.2) mg/dl AST 31 (15-37) U/L ALT 17 (12-78) U/L Alkaline Phosphatase 137 H (45-117) U/L Total Creatine Kinase 24 L (26-192) U/L C-Reactive Protein (0-0.29) mg/dl Total Protein 7.2 (6.4-8.2) gm/dl Albumin 1.8 L (3.4-5.0) gm/dl Anaplasma Smear Lyme Disease IgG Ab Negative (Negative) Lyme Disease IgM Ab Negative (Negative) 03/24/20 03/24/20 03/24/20 Range/Units 05:14 05:14 05:14 WBC 17.37 H (4.8-10.8) K/uL RBC 2.87 L (4.2-5.4) M/uL Hgb 8.5 L (12.0-16.0) g/dL Hct 26.7 L (37-47) % MCV 93.0 (80-100) fL MCH 29.6 (25-34) pg MCHC 31.8 L (32-36) g/dL RDW Std Deviation 51.5 H (36.4-46.3) fL RDW Coeff of Brian 15.2 H (11.5-14.5) % Plt Count 349 (130-400) K/uL MPV 10.7 H (7.4-10.4) fL Immature Gran % (Auto) 1.8 % Neut % (Auto) 72.1 % Lymph % (Auto) 16.6 % Starke % (Auto) 7.2 % Eos % (Auto) 2.1 % Baso % (Auto) 0.2 % Neut # (Auto) 12.51 H (1.4-6.5) K/uL Lymph # (Auto) 2.89 (1.2-3.4) K/uL Starke # (Auto) 1.25 H (0.11-0.59) K/uL Eos # (Auto) 0.37 (0-0.5) K/uL Baso # (Auto) 0.03 (0-0.2) K/uL Immature Gran # (Auto) 0.32 H (0.00-0.02) K/uL Absolute Nucleated RBC 0.02 H (0-0) K/uL Nucleated RBC % (auto) 0.1 % ESR 65 H (0-21) mm/hr Sodium 137 (136-145) mmol/L Potassium 4.4 (3.5-5.1) mmol/L Chloride 103 (98-107) mmol/L Carbon Dioxide 27 (21-32) mmol/L Anion Gap 7.0 (3-11) BUN 71 H (7-18) mg/dl Creatinine 1.97 H (0.6-1.2) mg/dl Est Cr Clr Drug Dosing 24.9 ml/min Est GFR ( Amer) 26.6 Est GFR (Non-Af Amer) 22.9 BUN/Creatinine Ratio 35.9 H (10-20) Glucose 110 H (70-99) mg/dl POC Glucose (70-99) mg/dl Calcium 9.2 (8.5-10.1) mg/dl Total Bilirubin (0.2-1) mg/dl Direct Bilirubin (0-0.2) mg/dl AST (15-37) U/L ALT (12-78) U/L Alkaline Phosphatase (45-117) U/L Total Creatine Kinase (26-192) U/L C-Reactive Protein 24.50 H (0-0.29) mg/dl Total Protein (6.4-8.2) gm/dl Albumin (3.4-5.0) gm/dl Anaplasma Smear See Comment Lyme Disease IgG Ab (Negative) Lyme Disease IgM Ab (Negative) 03/23/20 Range/Units 20:44 WBC (4.8-10.8) K/uL RBC (4.2-5.4) M/uL Hgb (12.0-16.0) g/dL Hct (37-47) % MCV (80-100) fL MCH (25-34) pg MCHC (32-36) g/dL RDW Std Deviation (36.4-46.3) fL RDW Coeff of Brian (11.5-14.5) % Plt Count (130-400) K/uL MPV (7.4-10.4) fL Immature Gran % (Auto) % Neut % (Auto) % Lymph % (Auto) % Starke % (Auto) % Eos % (Auto) % Baso % (Auto) % Neut # (Auto) (1.4-6.5) K/uL Lymph # (Auto) (1.2-3.4) K/uL Starke # (Auto) (0.11-0.59) K/uL Eos # (Auto) (0-0.5) K/uL Baso # (Auto) (0-0.2) K/uL Immature Gran # (Auto) (0.00-0.02) K/uL Absolute Nucleated RBC (0-0) K/uL Nucleated RBC % (auto) % ESR (0-21) mm/hr Sodium (136-145) mmol/L Potassium (3.5-5.1) mmol/L Chloride (98-107) mmol/L Carbon Dioxide (21-32) mmol/L Anion Gap (3-11) BUN (7-18) mg/dl Creatinine (0.6-1.2) mg/dl Est Cr Clr Drug Dosing ml/min Est GFR ( Amer) Est GFR (Non-Af Amer) BUN/Creatinine Ratio (10-20) Glucose (70-99) mg/dl POC Glucose 143 H (70-99) mg/dl Calcium (8.5-10.1) mg/dl Total Bilirubin (0.2-1) mg/dl Direct Bilirubin (0-0.2) mg/dl AST (15-37) U/L ALT (12-78) U/L Alkaline Phosphatase (45-117) U/L Total Creatine Kinase (26-192) U/L C-Reactive Protein (0-0.29) mg/dl Total Protein (6.4-8.2) gm/dl Albumin (3.4-5.0) gm/dl Anaplasma Smear Lyme Disease IgG Ab (Negative) Lyme Disease IgM Ab (Negative) Diagnostic Findings MR Femur L wo IMPRESSION: 1. Old, healed left femoral fractures. No acute fractures identified. 2. Progression of the moderate subcutaneous edema within the left thigh. 3. Small left knee effusion persists. 4. Marked fatty atrophy of the left thigh musculature. There is now mild edema within the residual hamstring muscles. This could be due to the patient's edematous state or represent a denervation injury or a low-grade myositis. 5. No loculated fluid collections to suggest an abscess. 6. Chronic deformity within the left hip is again noted. PG Care Time/CCT Total # of Minutes Spent Total Time Spent with Patient: Total time spent is greater than 50% in coordination of care (as documented) at patient's floor/unit and/or counseling patient: Coding Level of Care Code 66899 Subseq Hosp Care Lvl 3 Diagnoses Septic arthritis of knee M00.9 Knee effusion, left M25.462 Cellulitis L03.90 Left leg pain M79.605 Diabetes mellitus E11.9 Chronic kidney disease, stage 3 N18.3 Hypertension I10 Hypertension type: essential hypertension Peripheral neuropathy G62.9 Hypothyroidism E03.9 Hyperlipidemia E78.5 Generalized osteoarthritis of multiple sites M15.9 Edema R60.9 Afib I48.91 Atrial fibrillation type: unspecified Anemia D64.9 Pressure ulcer L89.90 DVT prophylaxis Z29.9 (1) Afib Atrial fibrillation type: unspecified Qualified Code(s): I48.91 - Unspecified atrial fibrillation (2) Hypertension Hypertension type: essential hypertension Qualified Code(s): I10 - Essential (primary) hypertension
[2020-03-24] MEDS: oxyCODONE HCL IR 5 MG TAB (IMMEDIATE RELEASE) PO PRN (11:24)
[2020-03-24] MEDS: allopurinoL 100 MG TAB PO SCH (13:03)
[2020-03-24] MEDS ORDERED: INSULIN HUMAN NPH SC SCH (17:00)
[2020-03-24] MEDS: CIPROFLOXACIN 500 MG TAB PO SCH (17:22)
[2020-03-24] MEDS ORDERED: CALCITONIN SALMON 400 UNITS/2 ML SQ ONE (18:05)
[2020-03-24] MEDS ORDERED: SODIUM CHLORIDE 0.9% 500 ML IV SCH (18:15)
[2020-03-24] MEDS: GABAPENTIN 100 MG CAP PO SCH (21:49)
[2020-03-25] MEDS: LEVOTHYROXINE SODIUM 75 MCG TABLET PO SCH (05:04)
[2020-03-25] MEDS: HEPARIN SOD 5,000 UNIT/0.5 ML VIAL SQ SCH ×3 (05:04→21:02)
[2020-03-25 06:38] LABS: Basophils # (auto) 0.04 K/uL (0-0.2); Basophils % (auto) 0.3 %; Eosinophils # (auto) 0.41 K/uL (0-0.5); Eosinophils % (auto) 2.8 %; Hematocrit (blood only) 25.5 % (37-47); Immature Granulocytes # (auto) 0.19 K/uL (0.00-0.02); Immature Granulocytes % (auto) 1.3 %; Lymphocytes # (auto) 2.71 K/uL (1.2-3.4); Lymphocytes % (auto) 18.6 %; Mean Corpuscular Hemoglobin 29.5 pg (25-34); Mean Corpuscular Hgb Conc 31.4 g/dL (32-36); Mean Corpuscular Volume 94.1 fL (80-100); Mean Platelet Volume 10.6 fL (7.4-10.4); Monocytes # (auto) 0.84 K/uL (0.11-0.59); Monocytes % (auto) 5.8 %; Neutrophils # (auto) 10.41 K/uL (1.4-6.5); Neutrophils % (auto) 71.2 %; Nucleated RBC # (auto) 0.02 K/uL (0-0); Nucleated RBC % (auto) 0.1 %; Platelet Count 372 K/uL (130-400); RDW Coefficient of Variation 15.3 % (11.5-14.5); RDW Standard Deviation 52.1 fL (36.4-46.3); Red Blood Count 2.71 M/uL (4.2-5.4)
[2020-03-25 07:07] LABS: Albumin Level 1.7 gm/dl (3.4-5.0); BUN Creatinine Ratio 40.3 (10-20); Calcium 8.4 mg/dl (8.5-10.1); Creatinine Clr Calc Pharmacy 26.2 ml/min; Est GFR (African American) 29.6; Est GFR (Non-African American) 25.6; Potassium 4.3 mmol/L (3.5-5.1)
[2020-03-25 07:10] LABS: Albumin Globulin Ratio 0.4 (0.9-2); Bilirubin,Total 0.5 mg/dl (0.2-1); Globulin 4.8 gm/dl (2.5-4.0); Total Protein 6.5 gm/dl (6.4-8.2)
--- NOTE | 2020-03-25 09:02 | Hospitalist Progress Note ---
Date of Service March 25, 2020 Assessment & Plan (1) Septic arthritis of knee: * Septic knee growing pseudomonas sensitive to Cipro - renal dosed but reportedly increased to 750 mg daily po for persistent fevers --> will decrease to 500mg daily (on 03/22) * s/p LEFT KNEE I&D washout on 03/[address] Murguia * Cultures with pseudomonas, sensitive to Cipro * Cipro, but decrease to 500mg daily (on day 8 of therapy) -- to be continued x [address] Murguia * Pain control with oxycodone * Blood cultures NGTD * MRI with edema of hamstrings, likely related to edematous state last evening (torsemide was resumed) * Lyme negative, peripheral smear negative for evidence anaplasmosis. ck 24 Of note, patient with evidence of gout on synovial fluid and had not been previously addressed. * Given 1.2mg Colchicine 03/23 and 0.6mg * Added allopurinol QOD for renal function * h/h low but stable, 11/30 but check iron stores. epogen if iron low per Dr. Jacobo * WBC decreasing, 14.6k from 17k as gout treated Given patient still painful with movement, review of medications shows tylenol not administered since 03/23 and patient only got the 1x 10mg oxycodone yesterday and 5mg today prior to therapy -- discussed changing tylenol to scheduled and will have her take 10mg prior to therapy -- she does look much more comfortable today and while still painful with movement, was not as significant as past two days (2) Knee effusion, left: * See above * Culture with pseudomonas * Fluid analysis with evidence of gout -- colchicine as above, allopurinol (3) Cellulitis: * bilateral lower extremities * Cellulitis secondary to chronic venous stasis ulcers in the setting of chronic venous insufficiency * Per the patient she has a longstanding history of chronic venous insufficiency with chronic venous stasis ulcers. * Most recent echo in September 2018 demonstrated a left ventricular ejection fraction of 60 to 65% with normal RVSP, indicating the lower extremity swelling is most likely from venous insufficiency * Initially on IV daptomycin but switched to doxy for continued MRSA coverage * Continue cipro as above * BCx remain negative to date but repeated 03/23 * Wound RN consulted * U/S NEGATIVE for DVT LLE * Cipro as above * Temp as above -- septic gout/pseudomonas not previously treating gout -- see above (4) Left leg pain: * Xray 03/15 for increasing pain from knee to hip - shows possible stress fracture and knee effusion, follow up MRI shows fracture to be old * Pain management as above * Orthopedics consulted as above * Gout as above (5) Diabetes mellitus: * Has been having periodic issues with hyperglycemia, preop required insulin gtt, now improved. * A1c 6.8 * Holding home meds while inpatient * Pharmacy Glycemic consult (6) Chronic kidney disease, stage 3: * Patient follows with Dr. Bhatt for chronic kidney disease. Baseline creatinine appears to be 1.5 - 1.8. * Avoid nephrotoxic med * Cr improved to 1.8 * IVF with diuretic for hypercalcemia and given calcitonin x 1 on 03/24 * Iron labs with iron 38 -- will give Epogen 4,[address] Jacobo. Repeat cbc in AM * Nephrology consulted -- appreciate assistance * BMP in AM (7) Hypertension: * Torsemide/IVF as above * BP 120/65 * Continue to monitor (8) Peripheral neuropathy: * PT OT ordered * Fall precautions * Continue home gabapentin * B12 666 (9) Hypothyroidism: * Last TSH 03/13/20 1.8 * Continue levothyroxine 75 mcg p.o. every morning (10) Hyperlipidemia: * Last lipid panel October 2019 * Continue gemfibrozil (11) Generalized osteoarthritis of multiple sites: * PT OT * Pain control -- patient did not receive pain medication since 03/22 and discussed please asking prior to therapy so that she is able to participate more * Scheduled tylenol and discussed increased pain medication dose prior to therapy moving forward (12) Edema: * torsemide * edema controlled presently (13) Afib: * Patient had 1 episode of documented atrial fibrillation during an admission September 2018, she was very acutely ill at that time. She spontaneously converted with 1 dose of IV Lopressor and has had no further events after that. She was on metoprolol 25 mg daily and was not started on anticoagulation and maintain normal sinus rhythm. Subsequently Toprol was stopped and she has since had no episodes of atrial fibrillation. * Monitor for development of A. fib (14) Anemia: * of chronic disease. Stable, baseline appears to be around 8.5 - 11 (15) Pressure ulcer: * Stage 3 Pressure ulcer of left & right medial buttock, POA * Wound care nurse consulted * Turn and reposition frequently * Improving (16) DVT prophylaxis: * heparin subq Hypoxia * 89% on RA overnight, currently 95% on RA * Overnight pulse ox without desaturation * CXR with L basilar atelectasis/scarring * 96% on RA * No further desat events since 03/19 * Continued encouragement for Incentive Spirometer Dispo: Jessica at d/c for rehab -- not able to take at this time due to possible positive covids. Will remain inpatient Admission and Anticipated Discharge Date Admission Date: March 15, 2020 Subjective Patient evaluated this morning. Worked with therapy this morning and still endorses significant pain with movement but does appear more comfortable at rest. She took 5mg pain med this morning and feels she probably should have asked for 2 tablets prior to therapy. Discussed scheduling tylenol and continued pain medication. Can try different medication if needed. Discussed I spoke with Dr. Jacobo and we will check iron stores and give does of epogen if needed. No fever, chill, chest pain shortness of breath, abdominal pain. Reports successful BM. Can be incontinent of urine at times. Review of Systems Review of Systems: All systems reviewed & are unremarkable except as noted in HPI & below Physical Exam Constitutional: WD/WN, vitals as above cooperative and comfortable; no acute distress Eyes: + anicteric sclerae and PERRL ENMT: Ears: no hearing impairment Mallampati Class: II Neck: normal visual inspection and trachea midline Respiratory: normal respiratory effort Auscultation: lungs clear to auscultation bilaterally and + diminished lung sounds (bases, improved) Cardiovascular: Rate/Rhythm: regular rate and regular rhythm Extremities: + edema (pedal,L>R) Gastrointestinal (Abdomen): normal bowel sounds, soft, nontender, no hepatosplenomegaly Musculoskeletal: zeke wrap to LLE decreased swelling compared to 03/24, less warmth medial aspect and lower extremity tender to palpation, but less today able to plantar/dorsiflex but with decreased pain to her knee with flexion/extension pulses weak but palpable calves tender to palpation with improving cellulitis (resolved RLE but still with chronic venous stasis changes) NVI b/l buttock erythema improving Neurologic: PERRL, EOMI, accommodation nl, no face palsy, no dysarthria moves all extremities Psychiatric: Orientation: alert and oriented x 3 Lymphatic: no lymphadenopathy Results & Data Results & Data ([facility]) Vital Signs (Past 12 Hours) Vital Signs Temp Pulse Pulse Resp BP Pulse Ox 03/25/20 08:17 36.4 C L 80 16 125/64 93 03/24/20 23:25 37.7 C H 97 H 18 134/62 92 Laboratory Results 03/25/20 03/25/20 03/25/20 Range/Units 08:05 06:19 06:19 WBC 14.60 H (4.8-10.8) K/uL RBC 2.71 L (4.2-5.4) M/uL Hgb 8.0 L (12.0-16.0) g/dL Hct 25.5 L (37-47) % MCV 94.1 (80-100) fL MCH 29.5 (25-34) pg MCHC 31.4 L (32-36) g/dL RDW Std Deviation 52.1 H (36.4-46.3) fL RDW Coeff of Brian 15.3 H (11.5-14.5) % Plt Count 372 (130-400) K/uL MPV 10.6 H (7.4-10.4) fL Immature Gran % (Auto) 1.3 % Neut % (Auto) 71.2 % Lymph % (Auto) 18.6 % [place] % (Auto) 5.8 % Eos % (Auto) 2.8 % Baso % (Auto) 0.3 % Neut # (Auto) 10.41 H (1.4-6.5) K/uL Lymph # (Auto) 2.71 (1.2-3.4) K/uL [place] # (Auto) 0.84 H (0.11-0.59) K/uL Eos # (Auto) 0.41 (0-0.5) K/uL Baso # (Auto) 0.04 (0-0.2) K/uL Immature Gran # (Auto) 0.19 H (0.00-0.02) K/uL Absolute Nucleated RBC 0.02 H (0-0) K/uL Nucleated RBC % (auto) 0.1 % Sodium 139 (136-145) mmol/L Potassium 4.3 (3.5-5.1) mmol/L Chloride 104 (98-107) mmol/L Carbon Dioxide 29 (21-32) mmol/L Anion Gap 6.0 (3-11) BUN 73 H (7-18) mg/dl Creatinine 1.80 H (0.6-1.2) mg/dl Est Cr Clr Drug Dosing 26.2 ml/min Est GFR ( Amer) 29.6 Est GFR (Non-Af Amer) 25.6 BUN/Creatinine Ratio 40.3 H (10-20) Glucose 171 H (70-99) mg/dl POC Glucose 191 H (70-99) mg/dl Calcium 8.4 L (8.5-10.1) mg/dl Total Bilirubin 0.5 (0.2-1) mg/dl Direct Bilirubin (0-0.2) mg/dl AST 24 (15-37) U/L ALT 17 (12-78) U/L Alkaline Phosphatase 124 H (45-117) U/L Total Creatine Kinase (26-192) U/L Total Protein 6.5 (6.4-8.2) gm/dl Albumin 1.7 L (3.4-5.0) gm/dl Globulin 4.8 H (2.5-4.0) gm/dl Albumin/Globulin Ratio 0.4 L (0.9-2) Anaplasma Smear Lyme Disease IgG Ab (Negative) Lyme Disease IgM Ab (Negative) 03/24/20 03/24/20 03/24/20 Range/Units 20:42 20:41 17:28 WBC (4.8-10.8) K/uL RBC (4.2-5.4) M/uL Hgb (12.0-16.0) g/dL Hct (37-47) % MCV (80-100) fL MCH (25-34) pg MCHC (32-36) g/dL RDW Std Deviation (36.4-46.3) fL RDW Coeff of Brian (11.5-14.5) % Plt Count (130-400) K/uL MPV (7.4-10.4) fL Immature Gran % (Auto) % Neut % (Auto) % Lymph % (Auto) % [place] % (Auto) % Eos % (Auto) % Baso % (Auto) % Neut # (Auto) (1.4-6.5) K/uL Lymph # (Auto) (1.2-3.4) K/uL [place] # (Auto) (0.11-0.59) K/uL Eos # (Auto) (0-0.5) K/uL Baso # (Auto) (0-0.2) K/uL Immature Gran # (Auto) (0.00-0.02) K/uL Absolute Nucleated RBC (0-0) K/uL Nucleated RBC % (auto) % Sodium (136-145) mmol/L Potassium (3.5-5.1) mmol/L Chloride (98-107) mmol/L Carbon Dioxide (21-32) mmol/L Anion Gap (3-11) BUN (7-18) mg/dl Creatinine (0.6-1.2) mg/dl Est Cr Clr Drug Dosing ml/min Est GFR ( Amer) Est GFR (Non-Af Amer) BUN/Creatinine Ratio (10-20) Glucose (70-99) mg/dl POC Glucose 313 H* 324 H* 310 H* (70-99) mg/dl Calcium (8.5-10.1) mg/dl Total Bilirubin (0.2-1) mg/dl Direct Bilirubin (0-0.2) mg/dl AST (15-37) U/L ALT (12-78) U/L Alkaline Phosphatase (45-117) U/L Total Creatine Kinase (26-192) U/L Total Protein (6.4-8.2) gm/dl Albumin (3.4-5.0) gm/dl Globulin (2.5-4.0) gm/dl Albumin/Globulin Ratio (0.9-2) Anaplasma Smear Lyme Disease IgG Ab (Negative) Lyme Disease IgM Ab (Negative) 03/24/20 03/24/20 03/24/20 Range/Units 17:25 12:10 08:56 WBC (4.8-10.8) K/uL RBC (4.2-5.4) M/uL Hgb (12.0-16.0) g/dL Hct (37-47) % MCV (80-100) fL MCH (25-34) pg MCHC (32-36) g/dL RDW Std Deviation (36.4-46.3) fL RDW Coeff of Brian (11.5-14.5) % Plt Count (130-400) K/uL MPV (7.4-10.4) fL Immature Gran % (Auto) % Neut % (Auto) % Lymph % (Auto) % [place] % (Auto) % Eos % (Auto) % Baso % (Auto) % Neut # (Auto) (1.4-6.5) K/uL Lymph # (Auto) (1.2-3.4) K/uL [place] # (Auto) (0.11-0.59) K/uL Eos # (Auto) (0-0.5) K/uL Baso # (Auto) (0-0.2) K/uL Immature Gran # (Auto) (0.00-0.02) K/uL Absolute Nucleated RBC (0-0) K/uL Nucleated RBC % (auto) % Sodium (136-145) mmol/L Potassium (3.5-5.1) mmol/L Chloride (98-107) mmol/L Carbon Dioxide (21-32) mmol/L Anion Gap (3-11) BUN (7-18) mg/dl Creatinine (0.6-1.2) mg/dl Est Cr Clr Drug Dosing ml/min Est GFR ( Amer) Est GFR (Non-Af Amer) BUN/Creatinine Ratio (10-20) Glucose (70-99) mg/dl POC Glucose 322 H* 163 H (70-99) mg/dl Calcium (8.5-10.1) mg/dl Total Bilirubin 0.4 (0.2-1) mg/dl Direct Bilirubin 0.2 (0-0.2) mg/dl AST 31 (15-37) U/L ALT 17 (12-78) U/L Alkaline Phosphatase 137 H (45-117) U/L Total Creatine Kinase 24 L (26-192) U/L Total Protein 7.2 (6.4-8.2) gm/dl Albumin 1.8 L (3.4-5.0) gm/dl Globulin (2.5-4.0) gm/dl Albumin/Globulin Ratio (0.9-2) Anaplasma Smear Lyme Disease IgG Ab (Negative) Lyme Disease IgM Ab (Negative) 03/24/20 03/24/20 Range/Units 08:56 05:14 WBC (4.8-10.8) K/uL RBC (4.2-5.4) M/uL Hgb (12.0-16.0) g/dL Hct (37-47) % MCV (80-100) fL MCH (25-34) pg MCHC (32-36) g/dL RDW Std Deviation (36.4-46.3) fL RDW Coeff of Brian (11.5-14.5) % Plt Count (130-400) K/uL MPV (7.4-10.4) fL Immature Gran % (Auto) % Neut % (Auto) % Lymph % (Auto) % [place] % (Auto) % Eos % (Auto) % Baso % (Auto) % Neut # (Auto) (1.4-6.5) K/uL Lymph # (Auto) (1.2-3.4) K/uL [place] # (Auto) (0.11-0.59) K/uL Eos # (Auto) (0-0.5) K/uL Baso # (Auto) (0-0.2) K/uL Immature Gran # (Auto) (0.00-0.02) K/uL Absolute Nucleated RBC (0-0) K/uL Nucleated RBC % (auto) % Sodium (136-145) mmol/L Potassium (3.5-5.1) mmol/L Chloride (98-107) mmol/L Carbon Dioxide (21-32) mmol/L Anion Gap (3-11) BUN (7-18) mg/dl Creatinine (0.6-1.2) mg/dl Est Cr Clr Drug Dosing ml/min Est GFR ( Amer) Est GFR (Non-Af Amer) BUN/Creatinine Ratio (10-20) Glucose (70-99) mg/dl POC Glucose (70-99) mg/dl Calcium (8.5-10.1) mg/dl Total Bilirubin (0.2-1) mg/dl Direct Bilirubin (0-0.2) mg/dl AST (15-37) U/L ALT (12-78) U/L Alkaline Phosphatase (45-117) U/L Total Creatine Kinase (26-192) U/L Total Protein (6.4-8.2) gm/dl Albumin (3.4-5.0) gm/dl Globulin (2.5-4.0) gm/dl Albumin/Globulin Ratio (0.9-2) Anaplasma Smear See Comment Lyme Disease IgG Ab Negative (Negative) Lyme Disease IgM Ab Negative (Negative) PG Care Time/CCT Total # of Minutes Spent Total Time Spent with Patient: Total time spent is greater than 50% in coordination of care (as documented) at patient's floor/unit and/or counseling patient: Coding Level of Care Code 48314 Subseq Hosp Care Lvl 2 Diagnoses Septic arthritis of knee M00.9 Knee effusion, left M25.462 Cellulitis L03.90 Left leg pain M79.605 Diabetes mellitus E11.9 Chronic kidney disease, stage 3 N18.3 Hypertension I10 Hypertension type: essential hypertension Peripheral neuropathy G62.9 Hypothyroidism E03.9 Hyperlipidemia E78.5 Generalized osteoarthritis of multiple sites M15.9 Edema R60.9 Afib I48.91 Atrial fibrillation type: unspecified Anemia D64.9 Pressure ulcer L89.90 DVT prophylaxis Z29.9 (1) Afib Atrial fibrillation type: unspecified Qualified Code(s): I48.91 - Unspecified atrial fibrillation (2) Hypertension Hypertension type: essential hypertension Qualified Code(s): I10 - Essential (primary) hypertension
[2020-03-25] MEDS: INSULIN ASPART 100 UNITS/ML 3 ML PEN SC SCH ×4 (09:05→22:04)
[2020-03-25] MEDS: INSULIN HUMAN NPH SC SCH ×2 (09:06→17:57)
[2020-03-25] MEDS: POLYETHYLENE (MIRALAX) 17 GM PACK PO SCH ×2 (09:07→20:09)
[2020-03-25] MEDS: OMEGA-3 (PURIFIED FISH OIL) 1 GM CAP PO SCH (09:16)
[2020-03-25] MEDS: CEROVITE ADV FORMULA TAB PO SCH (09:16)
[2020-03-25] MEDS: DOXYCYCLINE HYCLATE 100 MG CAP PO SCH ×2 (09:16→20:09)
[2020-03-25] MEDS: ASPIRIN 81 MG ECTAB PO SCH (09:17)
[2020-03-25] MEDS: TORSEMIDE 20 MG TAB PO SCH ×2 (09:17→20:08)
[2020-03-25] MEDS: oxyCODONE HCL IR 5 MG TAB (IMMEDIATE RELEASE) PO PRN ×2 (09:18→11:03)
[2020-03-25] MEDS: gemfibroziL 600 MG TAB PO SCH (09:18)
[2020-03-25] MEDS: ASCORBIC ACID 500 MG TAB PO SCH (09:18)
--- NOTE | 2020-03-25 10:35 | Pharmacy Report ---
Pharmacy Glycemic Short Note 2 - Date of Service March 25, 2020 - Glycemic Short BSG Results (Last 24 hours): 03/24/20 03/24/20 03/24/20 12:10 17:25 17:28 Glucose POC Glucose 163 H 322 H* 310 H* 03/24/20 03/24/20 03/25/20 20:41 20:42 06:19 Glucose 171 H POC Glucose 324 H* 313 H* 03/25/20 08:05 Glucose POC Glucose 191 H OUTPATIENT ANTIDIABETIC REGIMEN: * 70/30 60 units BID * A1c 6.6% 10/22/19 ASSESSMENT: 03/25: * Pt with SEVERE hyperglycemia last evening prior to dinner and HS for unknown reason. Pt has been relatively stable on current regimen for days. Discussed with RN - she is unaware of possible snacking between meals but may be possible. * Will not make any changes to regimen since this was an isolated event - possibly due to uncovered snack. * Will re-assess and titrate if this becomes a pattern. 03/24 * Patient is currently receiving an average of 178 units of insulin per day * 92 units of basal insulin * 86 units of prandial/correctional insulin * BSGs ranging 96-158 over the past 24hrs * Anticipating insulin regimen will need decrease slightly for the next 24hrs d/t : * AM Fasting BSG = 110 mg/dl and trending downwards. Will slightly decrease PM dose of NPH to prevent AM fasting low * Total daily dose = is slightly weighted towards basal insulin. Decreasing PM dose will help evenly re-distribute regimen 50%:50% basal:prandial to pr event hypo/hyperglycemia * Post-prandial BSGs are in goal range. No changes needed 03/23 * BSGs very well controlled yesterday, 154, 154, 124, and 126 mg/dL * Continue current Novolog parameters * Patient received 147 units of insulin (92 units of NPH and 55 units of Novolog) * Fasting BSG of 141 mg/dL is much improved from days previous * Continue current NPH dosing 03/21 * BSGs continued to be poorly controlled this weekend * BSGs yesterday of 186, 239, 310, and 184 mg/dL * Patient received 179 units of insulin (84 units of NPH and 95 units of prandial/correctional) * Novolog parameters tightened yesterday evening * Fasting BSG this morning of 213 mg/dL * Will increase NPH to 50 units this morning and set scale for evening dose 03/18 * BSGs increased throughout the day yesterday (118, 152, 258, and 272 mg/dL) * Patient received 60 units of basal (NPH) and 74 units of prandial/correctional Novolog * Fasting BSG of 198 mg/dL this morning * Will plan to increase NPH starting this morning and tighten Novolog correction factor * NPH order missing from JUN for AM dose and wasn't discovered until late morning - NPH ordered for ~1100 * Lunch BSG of 350 mg/dL - likely due to delayed NPH administration (will cover with 5 unit IV bolus and temporarily loosen CF as to not overcorrect) 03/14 * Pt is a 84 yo female admitted with cellulitis * BSG initially low on admission up to 186 mg/dL this morning. Patient utilized 70/30 insulin 60 units BID. Initial parameters will be based on patients total outpatient dose as well as weight based dosing. PLAN FOR INPATIENT GLYCEMIC CONTROL: * Basal insulin * NPH 50 units SC qAM * NPH 42 units SC qPM * Bolus insulin - continue * NovoLog per scale ACHS or Q6hrs while NPO * Correction Factor: 10 mg/dL/unit * Nutritional / Prandial insulin per carb ratio of 1 unit per 2.5 grams CHO consumed PLAN FOR DISCHARGE: * HbA1c of 6.8% suggests good outpatient glycemic control * Provided patient is not experiencing hypoglycemia as an outpatient - reasonable to continue outpatient regimen
[2020-03-25 11:10] LABS: Ferritin 242.3 ng/ml (8-388)
[2020-03-25] MEDS: ACETAMINOPHEN 500 MG TAB PO SCH ×2 (14:56→21:05)
[2020-03-25] MEDS ORDERED: EPOETIN ALFA 4,000 UNIT/ML VIAL SQ ONE (16:30)
--- NOTE | 2020-03-25 16:58 | Nephrology Consultation ---
Date of Consultation March 25, 2020 Assessment & Plan (1) Chronic kidney disease, stage 3: Overall stable kidney function. Fluid balance and volume status are acceptable. Electrolytes overall controlled. Medications appropriately dosed for kidney dysfunction. Continue to monitor metabolic profile with repeat renal profile in the AM. No additional changes at this time. (2) Septic arthritis of knee: POD #8 s/p arthroscopic I&D. Medications appropriately dosed for kidney function. (3) Edema: Torsemide as Rx to encourage slightly negative fluid balance. Volume status acceptable. Will monitor. (4) Anemia: Iron profile reviewed this AM. Tsat 22 acceptable. Epogen 4000 units provided this AM. Monitor with follow up labs. History of Present Illness Reason for Consultation: CKD Requesting Physician: Chaparro Sky MD Attending Physician: Chaparro Sky MD History of Present Illness Dana Mike is a 84-year-old Female with CKD III. Baseline creatinine has been 1.7 - 2.0 mg/dL. Urinary protein excretion is within normal limits. She follows in the nephrology clinic with Dr. Bhatt. CKD has been attributed to diabetic nephropathy, hypertensive nephrosclerosis, and microvascular disease. Medical history also is notable for obesity, hypercholesterolemia, breast CA s/p R mastectomy 2010 (on tamoxifen), partial thyroidectomy due to goiter, multiple orthopedic surgeries do to recurrent left hip dislocation as a child, uterine polyp - s/p D&C 05/21, gallstone pancreatitis 09/24 s/p cholecystectomy, sacral decubitus ulcer 09/24. Dana was admitted to [facility] on March 14 with septic arthritis of the left knee. Dana is postoperative day 8 status post I and D. Cultures growing Pseudomonas. She has been maintained on treatment with Cipro. She is also receiving doxycycline for associated cellulitis. There was evidence of gout the affected joint. For this she has received additional treatment. Reports improved pain control. During my assessment this morning she was working with physical therapy. Following my evaluation this morning, discussed the plan of care with Jen Lucai PA-C. Torsemide has been held. Anemia monitored. Local wound care for a stage 3 pressure ulcer. Allergies Allergy/AdvReac Type Severity Reaction Status Date / Time Sulfa (Sulfonamide Allergy Intermediate BLISTERS Verified 03/13/20 23:56 Antibiotics) Home Medications Medication Instructions Recorded Confirmed Type aspirin 81 mg tablet,delayed 81 mg PO QAM 11/09/18 03/13/20 History release cholecalciferol (vitamin D3) 50 2,000 unit PO 3XWK 11/09/18 03/13/20 History mcg (2,000 unit) capsule multivitamin,tx-minerals 1 cap PO QAM 11/09/18 03/13/20 History omega 0-wld-bqj-fish oil 1,000 mg 1 cap PO QAM cap 11/09/18 03/13/20 History (120 mg-180 mg) capsule ascorbic acid (vitamin C) [Vitamin 500 mg PO DAILY 11/18/18 03/13/20 History C] levothyroxine 75 mcg PO QAM 05/20/19 03/13/20 History gabapentin 100 mg capsule 200 mg PO HS #180 cap 06/01/19 03/13/20 Rx insulin human U-100 NPH-regulr See Rx Instructions SQ BID ml 01/18/20 03/13/20 History 70-30 mix 100 unit/mL subcutaneous susp gemfibrozil 600 mg tablet 600 mg PO QAM #30 tab 02/01/20 03/13/20 Rx torsemide 20 mg tablet 40 mg PO BID #360 tab 02/24/20 03/13/20 Rx Patient History Medical History Acute kidney injury (11/2018) Afib Cancer RIGHT BREAST CANCER Cellulitis of right leg Chronic back pain Chronic kidney disease, stage 3 Congenital dislocation of hip Degenerative disc disease Diabetes mellitus IDDM DNR (do not resuscitate) Hypertension Obesity Osteoarthritis Pancreatitis SEPTEMBER 2018 Peripheral neuropathy BILATERAL FEET Pressure ulcer of right heel, stage 3 Stage III pressure ulcer of right buttock Surgical History History of cataract surgery BILATERAL History of cholecystectomy History of detached retina repair LEFT History of hip surgery LEFT HIP DISLOCATION SURGERY A CHILD (UNSUCCESSFUL) History of mastectomy RIGHT BREAST WITH 1 LYMPH NODE REMOVAL History of thyroidectomy REMOVAL OF GOITER Hx of tonsillectomy Status post debridement hip open wound Family History Unknown Cancer Father Bone cancer Mother Diabetes Daughter Diabetes Breast cancer Son Diabetes Sister Diabetes Grandmother (Paternal) Breast cancer Denies family history of Ovarian cancer Prostate cancer Myocardial infarction Colorectal cancer Social History Smoking Status: Never smoker Second Hand Exposure: No; Hx Alcohol Use: No Hx Substance Use: No Preferred Language: Ecuadorean Communication Ability: Effective Visual Impairment: No Limitations Religion Teacher Required: No Beliefs That Will Affect Care: None marital status: Current Living Situation: Spouse Other Information That Helps Us Care for You: No Feels Safe at Home: Yes Safety Concerns: Feels Safe At This Time Seatbelt Use: always Assistive Devices: Walker Review of Systems Constitutional: no weight loss, no weight gain and no problem reported Eyes: no problem reported Ear, Nose, Mouth, Throat: no problem reported Respiratory: no problem reported Cardiovascular: no problem reported Gastrointestinal: no problem reported Musculoskeletal: no problem reported Integumentary: no problem reported Neurologic: no problem reported Psychiatric: no problem reported Endocrine: no problem reported Hematologic / Lymphatic: no problem reported Physical Exam Constitutional: well developed; no acute distress Eyes: no scleral abnormality and no corneal abnormality ENMT: Mouth: no oral mucosal abnormality and oral mucous membranes not dry Neck: normal visual inspection and trachea midline Respiratory: normal respiratory effort Auscultation: lungs clear to auscultation bilaterally Cardiovascular: Rate/Rhythm: regular rate Heart Sounds: normal S1 and normal S2 Extremities: no edema Musculoskeletal: Extremities: no cyanosis and no clubbing Skin: normal turgor; no lesions Neurologic: Motor/Sensory: no tremor and no asterixis Psychiatric: Orientation: alert and oriented x 3 Results & Data ([facility]) Vital Signs (Past 12 Hours) Vital Signs Temp Pulse Pulse Resp BP Pulse Ox 03/25/20 15:12 36.5 C 81 18 120/65 94 03/25/20 08:17 36.4 C L 80 16 125/64 93 Laboratory Results Laboratory Results - last 24 hr 03/24/20 03/24/20 03/24/20 17:25 17:28 20:41 WBC RBC Hgb Hct MCV MCH MCHC RDW Std Deviation RDW Coeff of Brian Plt Count MPV Immature Gran % (Auto) Neut % (Auto) Lymph % (Auto) Worth % (Auto) Eos % (Auto) Baso % (Auto) Neut # (Auto) Lymph # (Auto) Worth # (Auto) Eos # (Auto) Baso # (Auto) Immature Gran # (Auto) Absolute Nucleated RBC Nucleated RBC % (auto) Sodium Potassium Chloride Carbon Dioxide Anion Gap BUN Creatinine Est Cr Clr Drug Dosing Est GFR ( Amer) Est GFR (Non-Af Amer) BUN/Creatinine Ratio Glucose POC Glucose 322 H* 310 H* 324 H* Calcium Iron TIBC Transferrin Transferrin % Sat Ferritin Total Bilirubin AST ALT Alkaline Phosphatase Total Protein Albumin Globulin Albumin/Globulin Ratio 03/24/20 03/25/20 03/25/20 20:42 06:19 06:19 WBC 14.60 H RBC 2.71 L Hgb 8.0 L Hct 25.5 L MCV 94.1 MCH 29.5 MCHC 31.4 L RDW Std Deviation 52.1 H RDW Coeff of Brian 15.3 H Plt Count 372 MPV 10.6 H Immature Gran % (Auto) 1.3 Neut % (Auto) 71.2 Lymph % (Auto) 18.6 Worth % (Auto) 5.8 Eos % (Auto) 2.8 Baso % (Auto) 0.3 Neut # (Auto) 10.41 H Lymph # (Auto) 2.71 Worth # (Auto) 0.84 H Eos # (Auto) 0.41 Baso # (Auto) 0.04 Immature Gran # (Auto) 0.19 H Absolute Nucleated RBC 0.02 H Nucleated RBC % (auto) 0.1 Sodium 139 Potassium 4.3 Chloride 104 Carbon Dioxide 29 Anion Gap 6.0 BUN 73 H Creatinine 1.80 H Est Cr Clr Drug Dosing 26.2 Est GFR ( Amer) 29.6 Est GFR (Non-Af Amer) 25.6 BUN/Creatinine Ratio 40.3 H Glucose 171 H POC Glucose 313 H* Calcium 8.4 L Iron TIBC Transferrin Transferrin % Sat Ferritin Total Bilirubin 0.5 AST 24 ALT 17 Alkaline Phosphatase 124 H Total Protein 6.5 Albumin 1.7 L Globulin 4.8 H Albumin/Globulin Ratio 0.4 L 03/25/20 03/25/20 03/25/20 06:19 06:19 08:05 WBC RBC Hgb Hct MCV MCH MCHC RDW Std Deviation RDW Coeff of Brian Plt Count MPV Immature Gran % (Auto) Neut % (Auto) Lymph % (Auto) Worth % (Auto) Eos % (Auto) Baso % (Auto) Neut # (Auto) Lymph # (Auto) Worth # (Auto) Eos # (Auto) Baso # (Auto) Immature Gran # (Auto) Absolute Nucleated RBC Nucleated RBC % (auto) Sodium Potassium Chloride Carbon Dioxide Anion Gap BUN Creatinine Est Cr Clr Drug Dosing Est GFR ( Amer) Est GFR (Non-Af Amer) BUN/Creatinine Ratio Glucose POC Glucose 191 H Calcium Iron 38 TIBC Cancelled 149 L Transferrin 125 L Transferrin % Sat 22 Ferritin Cancelled 242.3 Total Bilirubin AST ALT Alkaline Phosphatase Total Protein Albumin Globulin Albumin/Globulin Ratio 03/25/20 12:29 WBC RBC Hgb Hct MCV MCH MCHC RDW Std Deviation RDW Coeff of Brian Plt Count MPV Immature Gran % (Auto) Neut % (Auto) Lymph % (Auto) Worth % (Auto) Eos % (Auto) Baso % (Auto) Neut # (Auto) Lymph # (Auto) Worth # (Auto) Eos # (Auto) Baso # (Auto) Immature Gran # (Auto) Absolute Nucleated RBC Nucleated RBC % (auto) Sodium Potassium Chloride Carbon Dioxide Anion Gap BUN Creatinine Est Cr Clr Drug Dosing Est GFR ( Amer) Est GFR (Non-Af Amer) BUN/Creatinine Ratio Glucose POC Glucose 89 Calcium Iron TIBC Transferrin Transferrin % Sat Ferritin Total Bilirubin AST ALT Alkaline Phosphatase Total Protein Albumin Globulin Albumin/Globulin Ratio PG Care Time/CCT Total # of Minutes Spent Total Time Spent with Patient: Total time spent is greater than 50% in coordination of care (as documented) at patient's floor/unit and/or counseling patient: Coding Level of Care Code 21372 Inpt Consult Level 3 Diagnoses Chronic kidney disease, stage 3 N18.3 Septic arthritis of knee M00.9 Edema R60.9 Anemia D64.9
[2020-03-25] MEDS ORDERED: EPOETIN ALFA 40,000 UNITS/ML VIAL SQ ONE (17:14)
[2020-03-25] MEDS: CIPROFLOXACIN 500 MG TAB PO SCH (17:59)
[2020-03-25] MEDS: GABAPENTIN 100 MG CAP PO SCH (20:08)
[2020-03-26 06:07] LABS: Hematocrit (blood only) 26.2 % (37-47); Hemoglobin 8.2 g/dL (12.0-16.0); Mean Corpuscular Hemoglobin 29.4 pg (25-34); Mean Corpuscular Hgb Conc 31.3 g/dL (32-36); Mean Corpuscular Volume 93.9 fL (80-100); Mean Platelet Volume 10.4 fL (7.4-10.4); Platelet Count 346 K/uL (130-400); RDW Standard Deviation 51.2 fL (36.4-46.3); Red Blood Count 2.79 M/uL (4.2-5.4); White Blood Count 12.86 K/uL (4.8-10.8)
[2020-03-26] MEDS: ACETAMINOPHEN 500 MG TAB PO SCH ×3 (06:09→21:12)
[2020-03-26] MEDS: LEVOTHYROXINE SODIUM 75 MCG TABLET PO SCH (06:09)
[2020-03-26] MEDS: HEPARIN SOD 5,000 UNIT/0.5 ML VIAL SQ SCH ×3 (06:10→21:12)
[2020-03-26 06:31] LABS: Albumin Level 1.9 gm/dl (3.4-5.0); Calcium 8.7 mg/dl (8.5-10.1); Creatinine Clr Calc Pharmacy 28.9 ml/min; Est GFR (African American) 33.4; Est GFR (Non-African American) 28.8; Potassium 4.1 mmol/L (3.5-5.1)
[2020-03-26 06:34] LABS: Albumin Globulin Ratio 0.4 (0.9-2); Bilirubin,Total 0.4 mg/dl (0.2-1); Globulin 5.1 gm/dl (2.5-4.0)
[2020-03-26] MEDS: INSULIN HUMAN NPH SC SCH ×2 (08:50→18:55)
[2020-03-26] MEDS: INSULIN ASPART 100 UNITS/ML 3 ML PEN SC SCH ×4 (08:51→20:10)
[2020-03-26] MEDS: OMEGA-3 (PURIFIED FISH OIL) 1 GM CAP PO SCH (08:55)
[2020-03-26] MEDS: TORSEMIDE 20 MG TAB PO SCH ×2 (08:56→20:02)
[2020-03-26] MEDS: ASCORBIC ACID 500 MG TAB PO SCH (08:57)
[2020-03-26] MEDS: gemfibroziL 600 MG TAB PO SCH (08:57)
[2020-03-26] MEDS: DOXYCYCLINE HYCLATE 100 MG CAP PO SCH (08:58)
[2020-03-26] MEDS: CEROVITE ADV FORMULA TAB PO SCH (08:58)
[2020-03-26] MEDS: POLYETHYLENE (MIRALAX) 17 GM PACK PO SCH ×2 (08:58→20:02)
[2020-03-26] MEDS: ASPIRIN 81 MG ECTAB PO SCH (08:58)
[2020-03-26] MEDS: oxyCODONE HCL IR 5 MG TAB (IMMEDIATE RELEASE) PO PRN (11:05)
[2020-03-26] MEDS: allopurinoL 100 MG TAB PO SCH (11:06)
--- NOTE | 2020-03-26 13:55 | Hospitalist Progress Note ---
Date of Service March 26, 2020 Assessment & Plan (1) Septic arthritis of knee: * Septic knee growing pseudomonas sensitive to Cipro - renal dosed but reportedly increased to 750 mg daily po for persistent fevers --> will decrease to 500mg daily (on 03/22) * s/p LEFT KNEE I&D washout on 03/[address] Murguia * Cultures with pseudomonas, sensitive to Cipro * Cipro, but decrease to 500mg daily (on day 9 of therapy) -- to be continued x [address] Murguia * Pain control with oxycodone, tylenol * Blood cultures NGTD * MRI with edema of hamstrings, likely related to edematous state last evening (torsemide was resumed) * Lyme negative, peripheral smear negative for evidence anaplasmosis. ck 24 * WBC had been increasing, with fevers -- patient with evidence of gout on synovial fluid and had not been previously addressed. * --> Given 1.2mg, 0.6mg Colchicine 03/23 * --> Added allopurinol QOD for renal function -- continue at d/c * h/h low but stable -- iron stores checked with iron 38 and was provided epogen 4,000 on 03/[address] on daily iron replacement -- continue Given patient still painful with movement 03/25, review of medications shows Tylenol not administered since 03/23 and patient only got the 1x 10mg oxycodone 03/24 and 5mg 03/25 prior to therapy -- discussed changing Tylenol to scheduled and will have her take 10mg prior to therapy --> SIGNIFICANTLY IMPROVED WITH SCHEDULED TYLENOL 03/26, but did not receive oxycodone prior to therapy this morning as PT already in room prior to alerting nursing staff but was given dose after with reported improvement. Discussion with RN today, who was able to get patient up by herself, and that is also a significant improvement, as she was needing max assist x 3 prior days No further fevers, WBC continues to improve (2) Knee effusion, left: * See above * Culture with pseudomonas * Fluid analysis with evidence of gout -- colchicine as above, allopurinol (3) Cellulitis: * bilateral lower extremities * Cellulitis secondary to chronic venous stasis ulcers in the setting of chronic venous insufficiency * Per the patient she has a longstanding history of chronic venous insufficiency with chronic venous stasis ulcers. * Most recent echo in September 2018 demonstrated a left ventricular ejection fraction of 60 to 65% with normal RVSP, indicating the lower extremity swelling is most likely from venous insufficiency * Initially on IV daptomycin but switched to doxy for continued MRSA coverage * Continue cipro as above * BCx remain negative to date but repeated 03/23 * Wound RN consulted * U/S NEGATIVE for DVT LLE * Cipro as above (4) Left leg pain: * Xray 03/15 for increasing pain from knee to hip - shows possible stress fracture and knee effusion, follow up MRI shows fracture to be old * Pain management as above * Orthopedics consulted as above * Gout as above (5) Diabetes mellitus: * Has been having periodic issues with hyperglycemia, preop required insulin gtt, now improved. * A1c 6.8 * Holding home meds while inpatient * Pharmacy Glycemic consult -- did have episode of hypoglycemia last night to 60s (6) Chronic kidney disease, stage 3: * Patient follows with Dr. Bhatt for chronic kidney disease. Baseline creatinine appears to be 1.5 - 1.8. * Avoid nephrotoxic med * IVF with diuretic for hypercalcemia and given calcitonin x 1 on 03/24 * Cr improved to 1.63 * Iron labs with iron 38 -- will give Epogen 4,[address] Jacobo. Repeat cbc with improvement to 8.2/26.2 * Nephrology consulted -- appreciate assistance * BMP in AM (7) Hypertension: * Torsemide * BP 122/68 * Continue to monitor (8) Peripheral neuropathy: * PT OT ordered * Fall precautions * Continue home gabapentin * B12 666 (9) Hypothyroidism: * Last TSH 03/13/20 1.8 * Continue levothyroxine 75 mcg p.o. every morning (10) Hyperlipidemia: * Last lipid panel October 2019 * Continue gemfibrozil (11) Generalized osteoarthritis of multiple sites: * PT OT * Pain control as above (12) Edema: * torsemide as above -- edema at baseline * edema controlled presently (13) Afib: * Patient had 1 episode of documented atrial fibrillation during an admission September 2018, she was very acutely ill at that time. She spontaneously converted with 1 dose of IV Lopressor and has had no further events after that. She was on metoprolol 25 mg daily and was not started on anticoagulation and maintain normal sinus rhythm. Subsequently Toprol was stopped and she has since had no episodes of atrial fibrillation. * Monitor for development of A. fib -- RRR on examination (14) Anemia: * of chronic disease. Stable, baseline appears to be around 8.5 - 11 * See above-- given epogen. Iron low normal and started on oral replacement -- continue at d/c (15) Pressure ulcer: * Stage 3 Pressure ulcer of left & right medial buttock, POA * Wound care nurse consulted * Turn and reposition frequently * Improving (16) DVT prophylaxis: * heparin subq Hypoxia * 89% on RA overnight, currently 96% on RA * Overnight pulse ox without desaturation * CXR with L basilar atelectasis/scarring * 96% on RA * No further desat events since 03/19 * Continued encouragement for Incentive Spirometer Dispo: [facility] at d/c for rehab -- not able to take at this time due to possible positive covid. Will remain inpatient until Saturday until they can take. Admission and Anticipated Discharge Date Admission Date: March 15, 2020 Subjective Patient evaluated this morning. Up to bedside commode. Painful still with movement, but significantly improved from days prior with scheduled Tylenol. She worked with therapy this morning but unfortunately did not receive pain medication prior, although nursing was able to help transfer with only 1 person today, which is a significant improvement. Plans for [facility] delayed due to covid but hopefully will be able to d/c on Saturday. No fever, chill, chest pain, shortness of breath, abdominal pain, nausea or vomiting at this time. Review of Systems Review of Systems: All systems reviewed & are unremarkable except as noted in HPI & below Physical Exam Constitutional: WD/WN, vitals as above cooperative and comfortable; no acute distress Eyes: + anicteric sclerae and PERRL ENMT: Ears: no hearing impairment Mallampati Class: II Neck: normal visual inspection and trachea midline Respiratory: normal respiratory effort Auscultation: lungs clear to auscultation bilaterally and + diminished lung sounds (bases, improved) Cardiovascular: Rate/Rhythm: regular rate and regular rhythm Extremities: + edema (pedal,L>R) Gastrointestinal (Abdomen): normal bowel sounds, soft, nontender, no hepatosplenomegaly Skin: zeke wrap to LLE decreased swelling, warmth medial aspect and lower extremity tender to palpation, but less today able to plantar/dorsiflex but with decreased pain to her knee with flexi on/extension pulses weak but palpable calves tender to palpation with improving cellulitis (resolved RLE but still with chronic venous stasis changes) NVI b/l buttock erythema improving Neurologic: PERRL, EOMI, accommodation nl, no face palsy, no dysarthria moves all extremities Psychiatric: Orientation: alert and oriented x 3 Lymphatic: no lymphadenopathy Results & Data Results & Data ([facility] [place]) Vital Signs (Past 12 Hours) Vital Signs Temp Pulse BP Pulse Ox 03/26/20 07:00 36.4 C L 67 122/68 963 H Laboratory Results 03/26/20 03/26/20 03/26/20 Range/Units 12:09 08:46 05:31 WBC (4.8-10.8) K/uL RBC (4.2-5.4) M/uL Hgb (12.0-16.0) g/dL Hct (37-47) % MCV (80-100) fL MCH (25-34) pg MCHC (32-36) g/dL RDW Std Deviation (36.4-46.3) fL RDW Coeff of Brian (11.5-14.5) % Plt Count (130-400) K/uL MPV (7.4-10.4) fL Sodium 138 (136-145) mmol/L Potassium 4.1 (3.5-5.1) mmol/L Chloride 104 (98-107) mmol/L Carbon Dioxide 27 (21-32) mmol/L Anion Gap 7.0 (3-11) BUN 83 H (7-18) mg/dl Creatinine 1.63 H (0.6-1.2) mg/dl Est Cr Clr Drug Dosing 28.9 ml/min Est GFR ( Amer) 33.4 Est GFR (Non-Af Amer) 28.8 BUN/Creatinine Ratio 51.0 H (10-20) Glucose 85 (70-99) mg/dl POC Glucose 123 H 113 H (70-99) mg/dl Calcium 8.7 (8.5-10.1) mg/dl Total Bilirubin 0.4 (0.2-1) mg/dl AST 22 (15-37) U/L ALT 16 (12-78) U/L Alkaline Phosphatase 110 (45-117) U/L Total Protein 7.0 (6.4-8.2) gm/dl Albumin 1.9 L (3.4-5.0) gm/dl Globulin 5.1 H (2.5-4.0) gm/dl Albumin/Globulin Ratio 0.4 L (0.9-2) 03/26/20 03/25/20 03/25/20 Range/Units 05:31 21:54 21:32 WBC 12.86 H (4.8-10.8) K/uL RBC 2.79 L (4.2-5.4) M/uL Hgb 8.2 L (12.0-16.0) g/dL Hct 26.2 L (37-47) % MCV 93.9 (80-100) fL MCH 29.4 (25-34) pg MCHC 31.3 L (32-36) g/dL RDW Std Deviation 51.2 H (36.4-46.3) fL RDW Coeff of Brian 15.0 H (11.5-14.5) % Plt Count 346 (130-400) K/uL MPV 10.4 (7.4-10.4) fL Sodium (136-145) mmol/L Potassium (3.5-5.1) mmol/L Chloride (98-107) mmol/L Carbon Dioxide (21-32) mmol/L Anion Gap (3-11) BUN (7-18) mg/dl Creatinine (0.6-1.2) mg/dl Est Cr Clr Drug Dosing ml/min Est GFR ( Amer) Est GFR (Non-Af Amer) BUN/Creatinine Ratio (10-20) Glucose (70-99) mg/dl POC Glucose 74 70 (70-99) mg/dl Calcium (8.5-10.1) mg/dl Total Bilirubin (0.2-1) mg/dl AST (15-37) U/L ALT (12-78) U/L Alkaline Phosphatase (45-117) U/L Total Protein (6.4-8.2) gm/dl Albumin (3.4-5.0) gm/dl Globulin (2.5-4.0) gm/dl Albumin/Globulin Ratio (0.9-2) 12/18/20 12/18/20 12/18/20 Range/Units 21:02 20:59 17:17 WBC (4.8-10.8) K/uL RBC (4.2-5.4) M/uL Hgb (12.0-16.0) g/dL Hct (37-47) % MCV (80-100) fL MCH (25-34) pg MCHC (32-36) g/dL RDW Std Deviation (36.4-46.3) fL RDW Coeff of Brian (11.5-14.5) % Plt Count (130-400) K/uL MPV (7.4-10.4) fL Sodium (136-145) mmol/L Potassium (3.5-5.1) mmol/L Chloride (98-107) mmol/L Carbon Dioxide (21-32) mmol/L Anion Gap (3-11) BUN (7-18) mg/dl Creatinine (0.6-1.2) mg/dl Est Cr Clr Drug Dosing ml/min Est GFR ( Amer) Est GFR (Non-Af Amer) BUN/Creatinine Ratio (10-20) Glucose (70-99) mg/dl POC Glucose 60 L* 60 L* 93 (70-99) mg/dl Calcium (8.5-10.1) mg/dl Total Bilirubin (0.2-1) mg/dl AST (15-37) U/L ALT (12-78) U/L Alkaline Phosphatase (45-117) U/L Total Protein (6.4-8.2) gm/dl Albumin (3.4-5.0) gm/dl Globulin (2.5-4.0) gm/dl Albumin/Globulin Ratio (0.9-2) PG Care Time/CCT Total # of Minutes Spent Total Time Spent with Patient: Total time spent is greater than 50% in coordination of care (as documented) at patient's floor/unit and/or counseling patient: Coding Level of Care Code 94521 Subseq Hosp Care Lvl 2 Diagnoses Septic arthritis of knee M00.9 Knee effusion, left M25.462 Cellulitis L03.90 Left leg pain M79.605 Diabetes mellitus E11.9 Chronic kidney disease, stage 3 N18.3 Hypertension I10 Hypertension type: essential hypertension Peripheral neuropathy G62.9 Hypothyroidism E03.9 Hyperlipidemia E78.5 Generalized osteoarthritis of multiple sites M15.9 Edema R60.9 Afib I48.91 Atrial fibrillation type: unspecified Anemia D64.9 Pressure ulcer L89.90 DVT prophylaxis Z29.9 (1) Hypertension Hypertension type: essential hypertension Qualified Code(s): I10 - Essential (primary) hypertension (2) Afib Atrial fibrillation type: unspecified Qualified Code(s): I48.91 - Unspecified atrial fibrillation
--- NOTE | 2020-03-26 14:13 | Nephrology Progress Note ---
Date of Service March 26, 2020 Assessment & Plan (1) Chronic kidney disease, stage III (moderate): * Stage III CKD (moderate impairment). Baseline creatinine has been 1.7 - 2.0 w/ mGFR 43 cc/minute. Urinary protein excretion is within normal limits. Urine sediment was benign. Renal ultrasound revealed mild renal asymmetry with moderate cortical thinning bilaterally. The patient's renal impairment is due to diabetic nephropathy, hypertensive nephrosclerosis and microvascular disease * Kidney function is stable at this time. Electrolyte balance is acceptable * Monitor PRP (2) Septic arthritis of knee: * POD #9 s/p arthroscopic I&D * Patient remains on oral Cipro therapy * Medications appropriately dosed for kidney function (3) Edema: * Patient is responding to oral diuretic therapy. She is net 3.7 L volume negative. LE edema is nearly resolved * Continue Torsemide 40 mg po BID and monitor volume status/kidney function closely (4) Anemia: * Mild asymptomatic anemia * 03/25 iron saturation 22% - acceptable * Epogen 4000 units provided 03/25. Monitor response Admission and Anticipated Discharge Date Admission Date: March 15, 2020 Subjective Mrs. Mike was seen & examined in her hospital room this morning. She reports that her L knee pain and bilateral LE swelling are improved Review of Systems Constitutional: no fever Eyes: no problem reported Ear, Nose, Mouth, Throat: no problem reported Respiratory: no dyspnea Cardiovascular: + edema; no chest pain and no palpitations Gastrointestinal: no abdominal pain, no nausea and no diarrhea/loose stools Genitourinary: no dysuria and no hematuria Musculoskeletal: no back pain Integumentary: no rash Neurologic: no falls, no dizziness and no confusion Physical Exam Constitutional: not in distress Eyes: PERRL, conjunctivae normal, anicteric sclerae ENMT: external ear and nose normal, oropharynx normal Neck: trachea midline, no thyromegaly Respiratory: normal respiratory effort, lungs clear to auscultation Cardiovascular: Rate/Rhythm: regular rate and regular rhythm Extremities: no edema Gastrointestinal (Abdomen): normal bowel sounds, soft, nontender, no hepatosplenomegaly Musculoskeletal: Extremities: no cyanosis Skin: no rashes, warm and dry Neurologic: awake; not confused Results & Data ([facility]) Vital Signs (Past 12 Hours) Vital Signs Temp Pulse BP Pulse Ox 03/26/20 07:00 36.4 C L 67 122/68 963 H Laboratory Tests 03/26/20 03/26/20 05:31 05:31 WBC 12.86 H Hgb 8.2 L Hct 26.2 L Plt Count 346 Sodium 138 Potassium 4.1 Chloride 104 Carbon Dioxide 27 BUN 83 H Creatinine 1.63 H Glucose 85 PG Care Time/CCT Total # of Minutes Spent Total Time Spent with Patient: Total time spent is greater than 50% in coordination of care (as documented) at patient's floor/unit and/or counseling patient: Coding Level of Care Code 93403 Subseq Hosp Care Lvl 3 Diagnoses Chronic kidney disease, stage III (moderate) N18.30 Septic arthritis of knee M00.9 Edema R60.9 Anemia D64.9
[2020-03-26] MEDS: FERROUS SULFATE 325 MG TAB PO SCH (14:23)
[2020-03-26] MEDS: CARBOHYDRATES FOR HYPOGLYCEMIA PO PRN (16:49)
[2020-03-26] MEDS ORDERED: INSULIN HUMAN NPH SC SCH (17:00)
[2020-03-26] MEDS: CIPROFLOXACIN 500 MG TAB PO SCH (20:01)
[2020-03-26] MEDS: GABAPENTIN 100 MG CAP PO SCH (20:02)
[2020-03-27] MEDS: ACETAMINOPHEN 500 MG TAB PO SCH ×3 (05:01→21:57)
[2020-03-27] MEDS: HEPARIN SOD 5,000 UNIT/0.5 ML VIAL SQ SCH ×3 (05:01→21:59)
[2020-03-27] MEDS: LEVOTHYROXINE SODIUM 75 MCG TABLET PO SCH (05:02)
[2020-03-27 06:14] LABS: Basophils # (auto) 0.02 K/uL (0-0.2); Basophils % (auto) 0.2 %; Eosinophils # (auto) 0.46 K/uL (0-0.5); Hematocrit (blood only) 25.5 % (37-47); Immature Granulocytes # (auto) 0.09 K/uL (0.00-0.02); Immature Granulocytes % (auto) 0.8 %; Lymphocytes # (auto) 2.28 K/uL (1.2-3.4); Lymphocytes % (auto) 19.8 %; Mean Corpuscular Hemoglobin 29.4 pg (25-34); Mean Corpuscular Hgb Conc 31.4 g/dL (32-36); Mean Corpuscular Volume 93.8 fL (80-100); Mean Platelet Volume 10.3 fL (7.4-10.4); Monocytes # (auto) 0.72 K/uL (0.11-0.59); Monocytes % (auto) 6.3 %; Neutrophils # (auto) 7.93 K/uL (1.4-6.5); Neutrophils % (auto) 68.9 %; Platelet Count 359 K/uL (130-400); RDW Coefficient of Variation 15.1 % (11.5-14.5); RDW Standard Deviation 51.9 fL (36.4-46.3); Red Blood Count 2.72 M/uL (4.2-5.4)
[2020-03-27 07:01] LABS: BUN Creatinine Ratio 47.4 (10-20); Calcium 8.6 mg/dl (8.5-10.1); Creatinine Clr Calc Pharmacy 29.4 ml/min; Est GFR (African American) 34.2; Est GFR (Non-African American) 29.5
[2020-03-27] MEDS: CARBOHYDRATES FOR HYPOGLYCEMIA PO PRN ×2 (07:02→07:21)
[2020-03-27] MEDS ORDERED: INSULIN HUMAN NPH SC SCH ×3 (09:00→10:00)
[2020-03-27] MEDS: oxyCODONE HCL IR 5 MG TAB (IMMEDIATE RELEASE) PO PRN (09:13)
[2020-03-27] MEDS: gemfibroziL 600 MG TAB PO SCH (09:14)
[2020-03-27] MEDS: ASCORBIC ACID 500 MG TAB PO SCH (09:14)
[2020-03-27] MEDS: TORSEMIDE 20 MG TAB PO SCH ×2 (09:15→21:56)
[2020-03-27] MEDS: OMEGA-3 (PURIFIED FISH OIL) 1 GM CAP PO SCH (09:15)
[2020-03-27] MEDS: ASPIRIN 81 MG ECTAB PO SCH (09:15)
[2020-03-27] MEDS: CEROVITE ADV FORMULA TAB PO SCH (09:16)
[2020-03-27] MEDS: FERROUS SULFATE 325 MG TAB PO SCH (09:16)
[2020-03-27] MEDS: POLYETHYLENE (MIRALAX) 17 GM PACK PO SCH ×2 (09:17→21:59)
[2020-03-27] MEDS: INSULIN ASPART 100 UNITS/ML 3 ML PEN SC SCH ×5 (10:03→22:15)
[2020-03-27] MEDS ORDERED: EPOETIN ALFA 10,000 UNITS/ML VIAL SQ ONE (10:14)
--- NOTE | 2020-03-27 10:17 | Pharmacy Report ---
Pharmacy Glycemic Short Note 2 - Date of Service March 27, 2020 - Glycemic Short BSG Results (Last 24 hours): 03/26/20 03/26/20 03/26/20 12:09 16:48 16:50 Glucose POC Glucose 123 H 60 L* 60 L* 03/26/20 03/26/20 03/27/20 17:07 20:07 05:54 Glucose 53 L* POC Glucose 75 84 03/27/20 03/27/20 07:20 07:40 Glucose POC Glucose 64 L* 84 OUTPATIENT ANTIDIABETIC REGIMEN: * 70/30 60 units BID * A1c 6.6% 10/22/19 ASSESSMENT: 03/27 * Patient received total of 136 units of insulin - of which 90 were NPH * Fasting BSG low at 53 mg/dL - patient received two OJ's and on recheck 84 mg/dL * Insulin needs slowly decreasing each day, likely too much basal yesterday and PO intake less * Held AM NPH - reduced ~40% and will dose with lunch time check * Plan to loosen CF/CR with lunch PLAN FOR INPATIENT GLYCEMIC CONTROL: * Basal insulin * NPH 50 units with lunch today * Will reevaluate needs tomorrow AM * Bolus insulin - decrease * NovoLog per scale ACHS or Q6hrs while NPO * Correction Factor: 15 mg/dL/unit * Nutritional / Prandial insulin per carb ratio of 1 unit per 5 grams CHO consumed
--- NOTE | 2020-03-27 11:19 | Nephrology Progress Note ---
Date of Service March 27, 2020 Assessment & Plan (1) Chronic kidney disease, stage III (moderate): * Stage III CKD (moderate impairment). Baseline creatinine has been 1.7 - 2.0 w/ mGFR 43 cc/minute. Urinary protein excretion is within normal limits. Urine sediment was benign. Renal ultrasound revealed mild renal asymmetry with moderate cortical thinning bilaterally. The patient's renal impairment is due to diabetic nephropathy, hypertensive nephrosclerosis and microvascular disease * Kidney function is stable at this time. Electrolyte balance is acceptable * No further Nephrology evaluation indicated at this time. Will sign off. Please call if further assistance is needed (2) Septic arthritis of knee: * POD #10 s/p arthroscopic I&D * Patient remains on oral Cipro therapy * Medications appropriately dosed for kidney function (3) Edema: * Patient is responding to oral diuretic therapy. She is net 3.7 L volume negative. LE edema is nearly resolved * Continue Torsemide 40 mg po BID and monitor volume status/kidney function closely (4) Anemia: * Mild asymptomatic anemia * 03/25 iron saturation 22% - acceptable * Will provide SQ epogen today Admission and Anticipated Discharge Date Admission Date: March 15, 2020 Subjective Mrs. Mike was seen & examined in her hospital room this morning. She reports that her L knee pain and bilateral LE swelling are improved Review of Systems Constitutional: + weakness; no fever Eyes: no problem reported Ear, Nose, Mouth, Throat: no problem reported Respiratory: no dyspnea Cardiovascular: + edema; no chest pain and no palpitations Gastrointestinal: no abdominal pain, no nausea and no diarrhea/loose stools Genitourinary: no dysuria and no hematuria Musculoskeletal: no back pain Integumentary: no rash Neurologic: no dizziness and no confusion Physical Exam Constitutional: not in distress Eyes: PERRL, conjunctivae normal, anicteric sclerae ENMT: external ear and nose normal, oropharynx normal Neck: trachea midline, no thyromegaly Respiratory: normal respiratory effort, lungs clear to auscultation Cardiovascular: Rate/Rhythm: regular rate and regular rhythm Extremities: no edema Gastrointestinal (Abdomen): normal bowel sounds, soft, nontender, no hepatosplenomegaly Musculoskeletal: Extremities: no cyanosis Skin: no rashes, warm and dry Neurologic: awake; not confused Results & Data ([facility]) Vital Signs (Past 12 Hours) Vital Signs Temp Pulse Resp BP Pulse Ox 03/26/20 23:57 36.7 C 80 18 116/60 94 Laboratory Tests 03/27/20 03/27/20 05:54 05:54 WBC 11.50 H Hgb 8.0 L Hct 25.5 L Plt Count 359 Sodium 138 Potassium 4.0 Chloride 104 Carbon Dioxide 27 BUN 76 H Creatinine 1.60 H Glucose 53 L* PG Care Time/CCT Total # of Minutes Spent Total Time Spent with Patient: Total time spent is greater than 50% in co ordination of care (as documented) at patient's floor/unit and/or counseling patient: Coding Level of Care Code 03615 Subseq Hosp Care Lvl 3 Diagnoses Chronic kidney disease, stage III (moderate) N18.30 Septic arthritis of knee M00.9 Edema R60.9 Anemia D64.9
--- NOTE | 2020-03-27 11:30 | Hospitalist Progress Note ---
Date of Service March 27, 2020 Assessment & Plan (1) Septic arthritis of knee: Septic arthritis of left knee s/p I&D by Dr. Murguia on 03/16/20. Pain improved. Continue oxycodone, Tylenol. Patient remains on Cipro 500mg daily. To be continued for a total of [address] Murguia. Repeat blood cultures 03-23-20 preliminarily negative. WBCs slowly improving to 11.50 today. Evidence of gout on synovial fluid. Given 1.2mg, 0.6mg Colchicine 03/23. Allopurinol QOD added. Pending discharge to [facility] for rehab possibly tomorrow. (2) Knee effusion, left: See above. Culture growing pseudomonas. Fluid analysis with evidence of gout- colchicine and allopurinol as above. (3) Cellulitis of left leg: Cellulitis of the bilateral lower extremities improving. Continue Cipro. U/S negative for LLE DVT. Repeat blood cultures on 03/23/20 are preliminarily negative. (4) Left leg pain: Pain from knee to hip on admission. MRI showed old stress fracture. Patient denies pain this morning. (5) Chronic venous insufficiency: (6) Acquired lymphedema: Chronic venous insufficiency with acquired chronic lymphadema. Patient reports she no longer wears compression stockings due to forming blisters while wearing them. Last ABIs were 0.91 on the left and 0.82 on the right in November 2018. Patient would likely benefit from home compression pumps once left knee has healed and cellulitis resolved. Would recommend repeat ABIs prior ordering pumps. This can be performed as an outpatient. (7) Chronic kidney disease, stage III (moderate): Cr at baseline at 1.6. Avoid nephrotoxic meds. IVF with diuretic and given calcitonin x 1 on 03/24. Iron 38- given Epogen 4000. Nephrology following. (8) Hyperlipidemia: Last lipid panel October 2019. Continue gemfibrozil. (9) Hypothyroidism: TSH 03-13-20 was 1.8. Continue levothyroxine 75mcg PO QAM. (10) Diabetes mellitus: Hgb A1C of 6.8%. Home meds held while inpatient. Pharmacy glycemic management consult due to episode of hypoglycemia 2 nights ago and periodic issues with hyperglycemia. (11) Afib: 1 episode in September 2018 converted with 1 dose IV Lopressor. No episodes since that time. Not currently anticoagulated. Monitor for recurrence. RRR on exam. (12) Anemia: Anemia of chronic disease. Baseline Hgb around 8.5-11. H&H of 8.0 and 25.5 this morning. Will repeat a CBC in the AM. Given epogen. Iron low to normal. Started on oral replacement to continue upon discharge. (13) Hypertension: Controlled. BP of 166/60 today. Continue torsemide. (14) Hypoxia: Improved. No desat events since 03/19. Currently 94% on RA. CXR with left basilar atelactasis/scarring. Continue to encourage incentive spirometer. (15) Pressure ulcer: Stage III pressure ulcer of the bilateral buttocks. Examined today, and noted to be healed. Continue with frequent position changes. Barrier cream to be applied daily. (16) DVT prophylaxis: Heparin subq (17) Peripheral neuropathy: PT/OT ordered. Fall precautions. Continue gabapentin. B12 normal at 666 on 03-22-20. Recommend diabetic footwear as an outpatient. This can be ordered by PCP. Admission and Anticipated Discharge Date Admission Date: March 15, 2020 Subjective 84 yo female admitted with septic arthritis of the left knee s/p I&D by Dr. Murguia on 03-16-20. Patient also noted to have bilateral lower extremity cellulitis on admission. She remains on Cipro. She denies f/c, n/v, or pain today. She has been working with PT without issue. She is pending possible discharge to [facility] tomorrow. Review of Systems Constitutional: no fever and no chills Eyes: no worsening vision Ear, Nose, Mouth, Throat: no dizziness Respiratory: no dyspnea Cardiovascular: no chest pain Gastrointestinal: no abdominal pain, no nausea and no vomiting Psychiatric: no confusion Physical Exam Physical Exam: Temp Pulse Resp BP Pulse Ox 36.7 C 80 18 116/60 94 03/26/20 23:57 03/26/20 23:57 03/26/20 23:57 03/26/20 23:57 03/26/20 23:57 Patient is afebrile. Vital signs stable. Constitutional: + obese; no acute distress ENMT: Ears: no hearing impairment Neck: trachea midline Thyroid: normal thyroid Respiratory: normal respiratory effort, lungs clear to auscultation Cardiovascular: RRR, no murmur, no edema Gastrointestinal (Abdomen): Inspection/Auscultation: normal bowel sounds Percussion/Palpation: abdomen soft; abdomen nontender Psychiatric: A+Ox3, euthymic affect Lymphatic: no lymphadenopathy Results & Data Results & Data ([facility]) Vital Signs (Past 12 Hours) Vital Signs Temp Pulse Resp BP Pulse Ox 03/26/20 23:57 36.7 C 80 18 116/60 94 PG Care Time/CCT Total # of Minutes Spent Total Time Spent with Patient: Total time spent is greater than 50% in coordination of care (as documented) at patient's floor/unit and/or counseling patient: [place]oding [place] [address] Subseq Hosp Care Lvl 2 Patient Type Established History Expanded Problem Focused Exam Expanded Problem Focused Medical Decision Making Moderate Complexity Diagnoses Septic arthritis of knee M00.9 Knee effusion, left M25.462 Cellulitis of left leg L03.116 Left leg pain M79.605 Chronic venous insufficiency I87.2 Acquired lymphedema I89.0 Chronic kidney disease, stage III (moderate) N18.30 Hyperlipidemia E78.5 Hypothyroidism E03.9 Diabetes mellitus E11.9 Afib I48.91 Atrial fibrillation type: unspecified Anemia D64.9 Hypertension I10 Hypoxia R09.02 Pressure ulcer L89.90 DVT prophylaxis Z29.9 Peripheral neuropathy G62.9 (1) Afib Atrial fibrillation type: unspecified Qualified Code(s): I48.91 - Unspecified atrial fibrillation
[2020-03-27] MEDS ORDERED: INSULIN HUMAN NPH SC ONE ×2 (12:00→17:00)
[2020-03-27] MEDS: CIPROFLOXACIN 500 MG TAB PO SCH (18:41)
[2020-03-27] MEDS: GABAPENTIN 100 MG CAP PO SCH (21:56)
[2020-03-28] MEDS: ACETAMINOPHEN 500 MG TAB PO SCH ×3 (06:12→21:36)
[2020-03-28] MEDS: LEVOTHYROXINE SODIUM 75 MCG TABLET PO SCH (06:13)
[2020-03-28] MEDS: HEPARIN SOD 5,000 UNIT/0.5 ML VIAL SQ SCH ×3 (06:13→21:37)
[2020-03-28 08:45] LABS: Hematocrit (blood only) 25.9 % (37-47); Hemoglobin 8.3 g/dL (12.0-16.0); Mean Corpuscular Volume 93.5 fL (80-100); Mean Platelet Volume 10.5 fL (7.4-10.4); Platelet Count 396 K/uL (130-400); RDW Coefficient of Variation 15.4 % (11.5-14.5); RDW Standard Deviation 52.2 fL (36.4-46.3); Red Blood Count 2.77 M/uL (4.2-5.4); White Blood Count 11.36 K/uL (4.8-10.8)
[2020-03-28] MEDS: INSULIN ASPART 100 UNITS/ML 3 ML PEN SC SCH ×4 (08:58→22:17)
[2020-03-28] MEDS: OMEGA-3 (PURIFIED FISH OIL) 1 GM CAP PO SCH (09:08)
[2020-03-28] MEDS: CEROVITE ADV FORMULA TAB PO SCH (09:08)
[2020-03-28] MEDS: gemfibroziL 600 MG TAB PO SCH (09:08)
[2020-03-28] MEDS: TORSEMIDE 20 MG TAB PO SCH ×2 (09:08→21:36)
[2020-03-28] MEDS: ASCORBIC ACID 500 MG TAB PO SCH (09:08)
[2020-03-28] MEDS: ASPIRIN 81 MG ECTAB PO SCH (09:08)
[2020-03-28] MEDS: FERROUS SULFATE 325 MG TAB PO SCH (09:08)
[2020-03-28] MEDS: POLYETHYLENE (MIRALAX) 17 GM PACK PO SCH ×2 (09:09→21:36)
[2020-03-28] MEDS: oxyCODONE HCL IR 5 MG TAB (IMMEDIATE RELEASE) PO PRN (10:41)
--- NOTE | 2020-03-28 11:27 | Pharmacy Report ---
Pharmacy Glycemic Short Note 2 - Date of Service March 28, 2020 - Glycemic Short BSG Results (Last 24 hours): 03/27/20 03/27/20 03/27/20 12:16 17:24 20:57 POC Glucose 119 H 143 H 142 H 03/27/20 03/28/20 22:02 01:06 POC Glucose 108 H 166 H OUTPATIENT ANTIDIABETIC REGIMEN: * 70/30 60 units BID * A1c 6.6% 10/22/19 ASSESSMENT: 03/28 * BSGs well controlled the 2nd half of the day yesterday. * Fasting BSG was missed this AM by nurses aid. NPH was held as a result since we did not have BSG prior to admin. Will reassess NPH needs when pre-lunch BSG is available. Patient had received a larger NPH dose w/ dinner yesterday. * Given typically requires > 120 units of insulin per day however only received 72 units yesterday. She may be hyperglycemic today if now deficient in basal insulin. Plan to based insulin needs upon outpt regimen of ~120 units per day going forward. Tomorrow's regimen will provide 50% of this total daily dose as NPH w/ 2/3 given w/ breakfast + 1/3 given w/ dinner 03/27 * Patient received total of 136 units of insulin - of which 90 were NPH * Fasting BSG low at 53 mg/dL - patient received two OJ's and on recheck 84 mg/dL * Insulin needs slowly decreasing each day, likely too much basal yesterday and PO intake less * Held AM NPH - reduced ~40% and will dose with lunch time check * Plan to loosen CF/CR with lunch PLAN FOR INPATIENT GLYCEMIC CONTROL: * Basal insulin * Will likely given 30 units NPH w/ lunch depending on BSG * starting 03/29: NPH 40 units with breakfast + 20 units with dinner * Bolus insulin - * NovoLog per scale ACHS or Q6hrs while NPO * Correction Factor: 12 mg/dL/unit * Nutritional / Prandial insulin per carb ratio of 1 unit per 4 grams CHO consumed
[2020-03-28] MEDS ORDERED: INSULIN HUMAN NPH SC ONE (11:30)
[2020-03-28] MEDS: allopurinoL 100 MG TAB PO SCH (11:47)
[2020-03-28] MEDS: INSULIN HUMAN NPH SC SCH (18:17)
[2020-03-28] MEDS: CIPROFLOXACIN 500 MG TAB PO SCH (18:31)
--- NOTE | 2020-03-28 18:52 | Hospitalist Progress Note ---
Date of Service March 28, 2020 Assessment & Plan (1) Septic arthritis of knee: * Septic knee growing pseudomonas sensitive to Cipro - continue 500 mg daily for [address] Murguia * s/p LEFT KNEE I&D washout on 03/[address] Murguia * Pain control with oxycodone, tylenol * Blood cultures NGTD * MRI with edema of hamstrings, likely related to edematous state last evening (torsemide was resumed) * Lyme negative, peripheral smear negative for evidence anaplasmosis. ck 24 * WBCs continue to be slightly elevated at 11 with a fever briefly overnight - no other s/s of infection, procal wnl, CRP is decreasing * --> Given 1.2mg, 0.6mg Colchicine 03/23 * --> Added allopurinol QOD for renal function -- continue at d/c * h/h low but stable -- iron stores checked with iron 38 and was provided epogen 4,000 on 03/[address] on daily iron replacement -- continue (2) Knee effusion, left: * See above * Culture with pseudomonas * Fluid analysis with evidence of gout -- colchicine as above, allopurinol (3) Cellulitis: * bilateral lower extremities * Cellulitis secondary to chronic venous stasis ulcers in the setting of chronic venous insufficiency * Per the patient she has a longstanding history of chronic venous insufficiency with chronic venous stasis ulcers. * Most recent echo in September 2018 demonstrated a left ventricular ejection fraction of 60 to 65% with normal RVSP, indicating the lower extremity swelling is most likely from venous insufficiency * Initially on IV daptomycin but switched to doxy for continued MRSA coverage - now completed * BCX ngtd * Wound RN consulted * U/S NEGATIVE for DVT LLE * Cipro as above (4) Left leg pain: * Xray 03/15 for increasing pain from knee to hip - shows possible stress fracture and knee effusion, follow up MRI shows fracture to be old * Pain management as above * Orthopedics consulted as above * Gout as above (5) Diabetes mellitus: * Has been having periodic issues with hyperglycemia, preop required insulin gtt, now improved. * A1c 6.8 * Holding home meds while inpatient * Pharmacy Glycemic consult -- did have episode of hypoglycemia last night to 60s (6) Chronic kidney disease, stage 3: * Patient follows with Dr. Donelan for chronic kidney disease. Baseline creatinine appears to be 1.5 - 1.8. * Avoid nephrotoxic med * IVF with diuretic for hypercalcemia and given calcitonin x 1 on 03/24 * Cr improved to 1.6 * Iron labs with iron 38 -- will give Epogen 4,[address] Jacobo. Repeat cbc with improvement to 8.2/26.2 * Nephrology consulted -- appreciate assistance * BMP in AM (7) Hypertension: * Torsemide * BP 122/68 * Continue to monitor (8) Peripheral neuropathy: * PT OT ordered * Fall precautions * Continue home gabapentin * B12 666 (9) Hypothyroidism: * Last TSH 03/13/20 1.8 * Continue levothyroxine 75 mcg p.o. every morning (10) Hyperlipidemia: * Last lipid panel October 2019 * Continue gemfibrozil (11) Generalized osteoarthritis of multiple sites: * PT OT * Pain control as above (12) Edema: * torsemide as above -- edema at baseline * edema controlled presently (13) Afib: * Patient had 1 episode of documented atrial fibrillation during an admission September 2018, she was very acutely ill at that time. She spontaneously converted with 1 dose of IV Lopressor and has had no further events after that. She was on metoprolol 25 mg daily and was not started on anticoagulation and maintain normal sinus rhythm. Subsequently Toprol was stopped and she has since had no episodes of atrial fibrillation. * Monitor for development of A. fib -- RRR on examination (14) Anemia: * of chronic disease. Stable, baseline appears to be around 8.5 - 11 * See above-- given epogen. Iron low normal and started on oral replacement -- continue at d/c (15) Pressure ulcer: * Stage 3 Pressure ulcer of left & right medial buttock, POA * Wound care nurse consulted * Turn and reposition frequently * Improving (16) Hypoxia: * Resolved * Overnight pulse ox without desaturation * CXR with L basilar atelectasis/scarring * 96% on RA * No further desat events since 03/19 * Continued encouragement for Incentive Spirometer (17) DVT prophylaxis: * heparin subq Dispo: Jessica at d/c for rehab -- not able to take at this time due to possible positive covid. Patient now wants to go home with home health. Will need to stay tonight to make sure no further fevers and discuss discharge with patient tomorrow. Admission and Anticipated Discharge Date Admission Date: March 15, 2020 Subjective Ms. Keller knee continues to be very painful. She feels tired. She had a brief fever overnight. Review of Systems Constitutional: no fever, no chills and no body aches Respiratory: no cough and no dyspnea on exertion Cardiovascular: no chest pain and no dyspnea Gastrointestinal: no abdominal pain, no nausea and no vomiting Genitourinary: no dysuria and no urinary hesitancy Musculoskeletal: no back pain and no joint pain Integumentary: no rash Physical Exam Physical Exam: General: no distress Eyes: normal inspection, PERLL Respiratory: chest non tender, clear to auscultation, normal breath sounds, no respiratory distress, no accessory muscle use Cardiac: regular rate and rhythm, no rub or gallop, no murmur, no edema, no jvd GI/: active bowel sounds, no abd pain or tenderness, soft, non distended Extremities: normal range of motion, normal strength, non tender Neuro/Psych: alert and oriented x 3, normal mood and affect Skin: normal color, dry, erythema bilateral extremities right > left Results & Data Results & Data ([facility]) Vital Signs (Past 12 Hours) Vital Signs Temp Pulse Resp BP Pulse Ox 03/28/20 14:49 36.6 C 81 18 112/66 97 03/28/20 07:59 36.8 C 78 18 142/67 H 94 PG Care Time/CCT Total # of Minutes Spent Total Time Spent with Patient: Total time spent is greater than 50% in coordination of care (as documented) at patient's floor/unit and/or counseling patient: Coding Level of Care Code 36403 Subseq Hosp Care Lvl 3 Diagnoses Septic arthritis of knee M00.9 Knee effusion, left M25.462 Cellulitis L03.90 Left leg pain M79.605 Diabetes mellitus E11.9 Chronic kidney disease, stage 3 N18.3 Hypertension I10 Hypertension type: essential hypertension Peripheral neuropathy G62.9 Hypothyroidism E03.9 Hyperlipidemia E78.5 Generalized osteoarthritis of multiple sites M15.9 Edema R60.9 Afib I48.91 Atrial fibrillation type: unspecified Anemia D64.9 Pressure ulcer L89.90 Hypoxia R09.02 DVT prophylaxis Z29.9 (1) Hypertension Hypertension type: essential hypertension Qualified Code(s): I10 - Essential (primary) hypertension (2) Afib Atrial fibrillation type: unspecified Qualified Code(s): I48.91 - Unspecified atrial fibrillation
[2020-03-28] MEDS: GABAPENTIN 100 MG CAP PO SCH (21:36)
[2020-03-29] MEDS: oxyCODONE HCL IR 5 MG TAB (IMMEDIATE RELEASE) PO PRN ×2 (02:10→06:21)
[2020-03-29] MEDS: ACETAMINOPHEN 500 MG TAB PO SCH ×3 (06:22→21:24)
[2020-03-29] MEDS: LEVOTHYROXINE SODIUM 75 MCG TABLET PO SCH (06:23)
[2020-03-29] MEDS: HEPARIN SOD 5,000 UNIT/0.5 ML VIAL SQ SCH ×3 (06:38→21:25)
[2020-03-29 06:49] LABS: Basophils # (auto) 0.02 K/uL (0-0.2); Basophils % (auto) 0.2 %; Eosinophils # (auto) 0.28 K/uL (0-0.5); Eosinophils % (auto) 2.2 %; Hematocrit (blood only) 26.8 % (37-47); Hemoglobin 8.4 g/dL (12.0-16.0); Immature Granulocytes # (auto) 0.09 K/uL (0.00-0.02); Immature Granulocytes % (auto) 0.7 %; Lymphocytes # (auto) 2.47 K/uL (1.2-3.4); Mean Corpuscular Hemoglobin 29.1 pg (25-34); Mean Corpuscular Hgb Conc 31.3 g/dL (32-36); Mean Corpuscular Volume 92.7 fL (80-100); Mean Platelet Volume 10.1 fL (7.4-10.4); Monocytes # (auto) 0.85 K/uL (0.11-0.59); Monocytes % (auto) 6.5 %; Neutrophils # (auto) 9.29 K/uL (1.4-6.5); Neutrophils % (auto) 71.4 %; Platelet Count 397 K/uL (130-400); RDW Coefficient of Variation 15.2 % (11.5-14.5); RDW Standard Deviation 51.6 fL (36.4-46.3); Red Blood Count 2.89 M/uL (4.2-5.4)
[2020-03-29 07:21] LABS: Calcium 9.2 mg/dl (8.5-10.1); Creatinine Clr Calc Pharmacy 26.2 ml/min; Est GFR (African American) 29.6; Est GFR (Non-African American) 25.6; Potassium 4.4 mmol/L (3.5-5.1)
[2020-03-29] MEDS: INSULIN HUMAN NPH SC SCH ×2 (08:55→18:37)
[2020-03-29] MEDS: INSULIN ASPART 100 UNITS/ML 3 ML PEN SC SCH ×4 (08:56→21:26)
[2020-03-29] MEDS: OMEGA-3 (PURIFIED FISH OIL) 1 GM CAP PO SCH (09:01)
[2020-03-29] MEDS: FERROUS SULFATE 325 MG TAB PO SCH (09:01)
[2020-03-29] MEDS: CEROVITE ADV FORMULA TAB PO SCH (09:01)
[2020-03-29] MEDS: gemfibroziL 600 MG TAB PO SCH (09:01)
[2020-03-29] MEDS: TORSEMIDE 20 MG TAB PO SCH ×2 (09:01→21:24)
[2020-03-29] MEDS: ASPIRIN 81 MG ECTAB PO SCH (09:01)
[2020-03-29] MEDS: ASCORBIC ACID 500 MG TAB PO SCH (09:01)
[2020-03-29] MEDS: POLYETHYLENE (MIRALAX) 17 GM PACK PO SCH ×2 (09:02→21:24)
--- NOTE | 2020-03-29 14:12 | Pharmacy Report ---
Pharmacy Glycemic Short Note 2 - Date of Service March 29, 2020 - Glycemic Short BSG Results (Last 24 hours): 03/28/20 03/28/20 03/29/20 17:15 20:45 06:03 Glucose 109 H POC Glucose 101 H 98 03/29/20 03/29/20 08:26 12:05 Glucose POC Glucose 148 H 84 OUTPATIENT ANTIDIABETIC REGIMEN: * 70/30 60 units BID * A1c 6.6% 10/22/19 ASSESSMENT: 03/29/20: * BSGs have been well-controlled on current regimen. * Pt has had several BSGs below goal range, so Novolog parameters loosened slightly this afternoon. 03/28 * BSGs well controlled the 2nd half of the day yesterday. * Fasting BSG was missed this AM by nurses aid. NPH was held as a result since we did not have BSG prior to admin. Will reassess NPH needs when pre-lunch BSG is available. Patient had received a larger NPH dose w/ dinner yesterday. * Given typically requires > 120 units of insulin per day however only received 72 units yesterday. She may be hyperglycemic today if now deficient in basal insulin. Plan to based insulin needs upon outpt regimen of ~120 units per day going forward. Tomorrow's regimen will provide 50% of this total daily dose as NPH w/ 2/3 given w/ breakfast + 1/3 given w/ dinner 03/27 * Patient received total of 136 units of insulin - of which 90 were NPH * Fasting BSG low at 53 mg/dL - patient received two OJ's and on recheck 84 mg/dL * Insulin needs slowly decreasing each day, likely too much basal yesterday and PO intake less * Held AM NPH - reduced ~40% and will dose with lunch time check * Plan to loosen CF/CR with lunch PLAN FOR INPATIENT GLYCEMIC CONTROL: * Basal insulin * NPH 40 units SQ qAM, 20 units SQ qPM * Bolus insulin - * NovoLog per scale ACHS or Q6hrs while NPO * Correction Factor: 15 mg/dL/unit * Nutritional / Prandial insulin per carb ratio of 1 unit per 5 grams CHO consumed
--- NOTE | 2020-03-29 14:44 | Orthopedic Progress Note ---
Date of Service March 29, 2020 Assessment & Plan (1) Septic arthritis of knee: Status post arthroscopic irrigation and debridement of left knee septic arthritis, gout POD#7 We were asked to reevaluate the patient's knee due to slight increase in white count and continued pain and amatory dysfunction involving left lower extremity. Patient reports pain and ambulatory dysfunction with left lower extremity weakness at baseline chronically. Unclear how far off from baseline she current ly is. The knee does demonstrate significant improvement from initial consultation status post arthroscopic irrigation debridement. Recommend trending inflammatory labs, if continue to elevate would consider repeat aspiration of the left knee. Question whether p.o. antibiotics sufficient to treat this particular infection would consider prolonged course of IV antibiotics, will defer to medical team. Would consider infectious disease consultation as well. Will order Lidoderm patches to help with pain control. -Pseudomonas noted on knee aspirate. Patient currently on ciprofloxacin 500 mg p.o. twice daily -New blood cultures are pending. Admission and Anticipated Discharge Date Admission Date: March 15, 2020 Subjective Post Operative Progress Note Patient seen sitting at bedside, admits to pain to left knee however improved since admission/surgery. Reports pain in her left knee at baseline, this is slightly increased from her baseline pain however less than her pain at admission. Reports decreased strength in her left lower extremity at baseline. Review of Systems Review of Systems: All systems reviewed & are unremarkable except as noted in HPI & below Constitutional: as per Subjective / HPI Physical Exam Physical Exam: Left lower extremity is neurovascular sensory intact grossly, +2 dorsalis pedis pulse, compartments soft, tenderness to palpation left knee, improved range of motion 10 to 90 degrees, pain with full extension and flexion. Moderate knee effusion, no erythema. Incisions are clean dry and intact without drainage or erythema. Constitutional: WD/WN, vitals as above Results & Data ([facility]) Vital Signs (Past 12 Hours) Vital Signs Temp Pulse Resp BP Pulse Ox 03/29/20 08:29 36.9 C 83 18 123/66 92
--- NOTE | 2020-03-29 16:04 | Hospitalist Progress Note ---
Date of Service March 29, 2020 Assessment & Plan (1) Septic arthritis of knee: * Septic knee growing pseudomonas sensitive to Cipro - continue 500 mg daily for [address] Murguia * s/p LEFT KNEE I&D washout on 03/[address] Murguia * Pain control with oxycodone, tylenol * Blood cultures NGTD * MRI with edema of hamstrings, likely related to edematous state (torsemide was resumed) * Lyme negative, peripheral smear negative for evidence anaplasmosis. ck 24 * WBCs continue to be slightly elevated at 11 with a fever briefly overnight - no other s/s of infection, procal wnl, CRP is decreasing * --> Given 1.2mg, 0.6mg Colchicine 03/23 * --> Added allopurinol QOD for renal function -- continue at d/c * Persistent leukocytosis and knee pain though some knee pain is chronic - will consult infectious disease. Ortho saw patient today as well and felt knee looked like it was improving - recommend trend inflammatory markers * h/h low but stable -- iron stores checked with iron 38 and was provided epogen 4,000 on 03/[address] on daily iron replacement -- continue (2) Knee effusion, left: * See above * Culture with pseudomonas * Fluid analysis with evidence of gout -- colchicine as above, allopurinol (3) Cellulitis: * bilateral lower extremities * Cellulitis secondary to chronic venous stasis ulcers in the setting of chronic venous insufficiency * Per the patient she has a longstanding history of chronic venous insufficiency with chronic venous stasis ulcers. * Most recent echo in September 2018 demonstrated a left ventricular ejection fraction of 60 to 65% with normal RVSP, indicating the lower extremity swelling is most likely from venous insufficiency * Initially on IV daptomycin but switched to doxy for continued MRSA coverage - now completed * BCX ngtd * Wound RN consulted * U/S NEGATIVE for DVT LLE * Cipro as above (4) Left leg pain: * Xray 03/15 for increasing pain from knee to hip - shows possible stress fracture and knee effusion, follow up MRI shows fracture to be old * Pain management as above * Orthopedics consulted as above * Gout as above (5) Diabetes mellitus: * Has been having periodic issues with hyperglycemia, preop required insulin gtt, now improved. * A1c 6.8 * Holding home meds while inpatient * Pharmacy Glycemic consult -- did have episode of hypoglycemia last night to 60s (6) Chronic kidney disease, stage 3: * Patient follows with Dr. Bhatt for chronic kidney disease. Baseline creatinine appears to be 1.5 - 1.8. * Avoid nephrotoxic med * IVF with diuretic for hypercalcemia and given calcitonin x 1 on 03/24 * Cr improved to 1.6 * Iron labs with iron 38 -- will give Epogen 4,[address] Jacobo. Repeat cbc with improvement to 8.2/26.2 * Nephrology consulted -- appreciate assistance * BMP in AM (7) Hypertension: * Torsemide * BP 122/68 * Continue to monitor (8) Peripheral neuropathy: * PT OT ordered * Fall precautions * Continue home gabapentin * B12 666 (9) Hypothyroidism: * Last TSH 03/13/20 1.8 * Continue levothyroxine 75 mcg p.o. every morning (10) Hyperlipidemia: * Last lipid panel October 2019 * Continue gemfibrozil (11) Generalized osteoarthritis of multiple sites: * PT OT * Pain control as above (12) Edema: * torsemide as above -- edema at baseline * edema controlled presently (13) Afib: * Patient had 1 episode of documented atrial fibrillation during an admission September 2018, she was very acutely ill at that time. She spontaneously converted with 1 dose of IV Lopressor and has had no further events after that. She was on metoprolol 25 mg daily and was not started on anticoagulation and maintain normal sinus rhythm. Subsequently Toprol was stopped and she has since had no episodes of atrial fibrillation. * Monitor for development of A. fib -- RRR on examination (14) Anemia: * of chronic disease. Stable, baseline appears to be around 8.5 - 11 * See above-- given epogen. Iron low normal and started on oral replacement -- continue at d/c (15) Pressure ulcer: * Stage 3 Pressure ulcer of left & right medial buttock, POA * Wound care nurse consulted * Turn and reposition frequently * Improving (16) Hypoxia: * Resolved * Overnight pulse ox without desaturation * CXR with L basilar atelectasis/scarring * 96% on RA * No further desat events since 03/19 * Continued encouragement for Incentive Spirometer (17) DVT prophylaxis: * heparin subq Dispo: Was to go to [facility] at discharge but now they are not able to take Ms. Rashid at this time due to possible positive covid. Patient now wants to go home with home health. I have some concerns about her going home and I discussed with her that I feel she is a fall risk. She feels her will be able to assist her. Will have ID weigh in on patient and then re-evaluate discharge plans tomorrow Admission and Anticipated Discharge Date Admission Date: March 15, 2020 Subjective Ms. Mike continues to feel tired with knee pain at surgical site. Review of Systems Constitutional: no fever, no chills and no body aches Respiratory: no cough and no dyspnea Cardiovascular: no chest pain and no palpitations Gastrointestinal: no abdominal pain, no nausea and no vomiting Genitourinary: no dysuria and no urinary hesitancy Musculoskeletal: as per Subjective / HPI Integumentary: no rash Physical Exam Physical Exam: General: no distress Eyes: normal inspection, PERLL Respiratory: chest non tender, clear to auscultation, normal breath sounds, no respiratory distress, no accessory muscle use Cardiac: regular rate and rhythm, no rub or gallop, no murmur, no edema, no jvd GI/: active bowel sounds, no abd pain or tenderness, soft, non distended Extremities: normal range of motion, normal strength, non tender Neuro/Psych: alert and oriented x 3, normal mood and affect Skin: normal color, dry Results & Data Results & Data ([facility]) Vital Signs (Past 12 Hours) Vital Signs Temp Pulse Resp BP Pulse Ox 03/29/20 08:29 36.9 C 83 18 123/66 92 PG Care Time/CCT Total # of Minutes Spent Total Time Spent with Patient: Total time spent is greater than 50% in coordination of care (as documented) at patient's floor/unit and/or counseling patient: Coding Level of Care Code 21719 Subseq Hosp Care Lvl 2 Diagnoses Septic arthritis of knee M00.9 Knee effusion, left M25.462 Cellulitis L03.90 Left leg pain M79.605 Diabetes mellitus E11.9 Chronic kidney disease, stage 3 N18.3 Hypertension I10 Hypertension type: essential hypertension Peripheral neuropathy G62.9 Hypothyroidism E03.9 Hyperlipidemia E78.5 Generalized osteoarthritis of multiple sites M15.9 Edema R60.9 Afib I48.91 Atrial fibrillation type: unspecified Anemia D64.9 Pressure ulcer L89.90 Hypoxia R09.02 DVT prophylaxis Z29.9 (1) Hypertension Hypertension type: essential hypertension Qualified Code(s): I10 - Essential (primary) hypertension (2) Afib Atrial fibrillation type: unspecified Qualified Code(s): I48.91 - Unspecified atrial fibrillation
[2020-03-29] MEDS: LIDOCAINE 5% 1 PATCH TD SCH (17:30)
[2020-03-29] MEDS: CIPROFLOXACIN 500 MG TAB PO SCH (18:32)
[2020-03-29] MEDS: GABAPENTIN 100 MG CAP PO SCH (21:24)
[2020-03-30] MEDS: oxyCODONE HCL IR 5 MG TAB (IMMEDIATE RELEASE) PO PRN ×3 (01:21→15:53)
[2020-03-30] MEDS: LEVOTHYROXINE SODIUM 75 MCG TABLET PO SCH (06:02)
[2020-03-30] MEDS: ACETAMINOPHEN 500 MG TAB PO SCH ×3 (06:03→21:12)
[2020-03-30] MEDS: HEPARIN SOD 5,000 UNIT/0.5 ML VIAL SQ SCH ×3 (06:03→21:12)
[2020-03-30 06:51] LABS: Basophils # (auto) 0.02 K/uL (0-0.2); Basophils % (auto) 0.2 %; Eosinophils # (auto) 0.34 K/uL (0-0.5); Hematocrit (blood only) 26.3 % (37-47); Hemoglobin 8.3 g/dL (12.0-16.0); Immature Granulocytes # (auto) 0.09 K/uL (0.00-0.02); Immature Granulocytes % (auto) 0.8 %; Lymphocytes # (auto) 2.77 K/uL (1.2-3.4); Lymphocytes % (auto) 24.3 %; Mean Corpuscular Hemoglobin 29.4 pg (25-34); Mean Corpuscular Hgb Conc 31.6 g/dL (32-36); Mean Corpuscular Volume 93.3 fL (80-100); Mean Platelet Volume 10.1 fL (7.4-10.4); Monocytes # (auto) 0.74 K/uL (0.11-0.59); Monocytes % (auto) 6.5 %; Neutrophils # (auto) 7.44 K/uL (1.4-6.5); Neutrophils % (auto) 65.2 %; Platelet Count 371 K/uL (130-400); RDW Coefficient of Variation 15.5 % (11.5-14.5); RDW Standard Deviation 52.8 fL (36.4-46.3); Red Blood Count 2.82 M/uL (4.2-5.4)
[2020-03-30] MEDS: INSULIN ASPART 100 UNITS/ML 3 ML PEN SC SCH ×4 (09:11→21:20)
[2020-03-30] MEDS: INSULIN HUMAN NPH SC SCH ×2 (09:14→10:23)
[2020-03-30] MEDS: TORSEMIDE 20 MG TAB PO SCH ×2 (09:19→21:12)
[2020-03-30] MEDS: gemfibroziL 600 MG TAB PO SCH (09:20)
[2020-03-30] MEDS: FERROUS SULFATE 325 MG TAB PO SCH (09:20)
[2020-03-30] MEDS: ASPIRIN 81 MG ECTAB PO SCH (09:20)
[2020-03-30] MEDS: ASCORBIC ACID 500 MG TAB PO SCH (09:21)
[2020-03-30] MEDS: OMEGA-3 (PURIFIED FISH OIL) 1 GM CAP PO SCH (09:21)
[2020-03-30] MEDS: CEROVITE ADV FORMULA TAB PO SCH (09:21)
[2020-03-30] MEDS: POLYETHYLENE (MIRALAX) 17 GM PACK PO SCH ×2 (09:21→21:12)
[2020-03-30] MEDS: allopurinoL 100 MG TAB PO SCH (11:08)
--- NOTE | 2020-03-30 11:41 | Pharmacy Report ---
Glycemic Control Progress Note - Date of Service March 30, 2020 - Scope Glycemic Pharmacist consulted for glycemic control to write orders per [facility] inpatient glycemic control protocol. - Objective Accuchecks BSG(last 24 hours):: 03/29/20 03/29/20 03/29/20 12:05 17:14 20:39 POC Glucose 84 100 H 173 H 03/30/20 03/30/20 08:13 11:19 POC Glucose 119 H 155 H HbA1c:: Hemoglobin A1c 6.8 % (4.5-5.6) H 03/15/20 05:33 - Recent Pertinent Medications The patient is currently receiving: * Basal insulin: NPH 40 units in the morning and 20 units in the evening * Correctional Insulin: Novolog Correction per scale ACHS Goal Range: Low 110 mg/dL - High 140 mg/dL Correction Factor: 15 mg/dL/unit * Prandial insulin: Per carb ratio of 1 unit per 5 grams CHO consumed - Outpatient Anti-Diabetic Meds NPH 70/30 - 60 units BID - Assessment & Plan ASSESSMENT: * See progress note from 03/14/20 for more background info, in short: * Pt receiving SQ basal bolus insulin regimen for hyperglycemia secondary to baseline DM (outpatient regimen on hold). * Patient is currently receiving an average of 106 units of insulin per day * 60 units of basal insulin * 46 units of prandial/correctional insulin * BSGs ranging 84 - 173 mg/dl over the past 24hrs * Changes needed to insulin regimen: * AM Fasting BSG = 119 mg/dl. This is in goal range for patient based on inpatient targets and co-morbidities. The patient did have some hypoglycemia several days ago. Basal insulin increased to 60 units yesterday (up from 50 units the past 2 days). Fasting BSG this morning is slightly lower so will decrease basal insulin back to 50 units. * Post-prandial BSGs are in range therefore no changes needed to CF/CR. * Total daily dose = ~100 units. PLAN FOR INPATIENT GLYCEMIC CONTROL: * Decreasing NPH to 35 units SQ in the morning and 15 units in the evening * Continuing correction factor of 15 mg/dl/unit * Continuing carb ratio of 1 unit per 5 grams CHO consumed * Continuing goal range of Low 110 mg/dL - High 140 mg/dL RECOMMENDATIONS FOR DISCHARGE: * Patient's HbA1C indicates very tight control for her age and comorbidities. * Could consider a decrease in outpatient insulin if patient is suffering from hypoglycemia. * Otherwise, patient's insulin requirements inhouse match outpatient requirements so could continue. Thank you.
[2020-03-30] MEDS: LIDOCAINE 5% 1 PATCH TD SCH (12:08)
--- NOTE | 2020-03-30 15:23 | Hospitalist Progress Note ---
Date of Service March 30, 2020 Assessment & Plan (1) Septic arthritis of knee: * Septic knee growing pseudomonas sensitive to Cipro - continue 500 mg daily for [address] Murguia * s/p LEFT KNEE I&D washout on 03/[address] Murguia * Pain control with oxycodone, tylenol * Blood cultures NGTD * MRI with edema of hamstrings, likely related to edematous state (torsemide was resumed) * Lyme negative, peripheral smear negative for evidence anaplasmosis. ck 24 * WBCs continue to be slightly elevated at 11.4, last febrile briefly 03/28 despite round the clock tylenol administration - no other s/s of infection, procal wnl, CRP is decreasing * --> Given 1.2mg, 0.6mg Colchicine 03/23 * --> Added allopurinol QOD for renal function -- continue at d/c * Persistent leukocytosis and knee pain though some knee pain is chronic - Consulted infectious disease - recommended changing to cefepime from Cipro given intermediate susceptibility of Levaquin and that patient may need second washout. Ortho saw patient 03/30 as well and felt knee looked like it was improving - recommend trend inflammatory markers * h/h low but stable -- iron stores checked with iron 38 and was provided epogen 4,000 on 03/[address] on daily iron replacement -- continue (2) Knee effusion, left: * See above * Culture with pseudomonas * Fluid analysis with evidence of gout -- colchicine as above, allopurinol (3) Cellulitis: * bilateral lower extremities * Cellulitis secondary to chronic venous stasis ulcers in the setting of chronic venous insufficiency * Per the patient she has a longstanding history of chronic venous insufficiency with chronic venous stasis ulcers. * Most recent echo in September 2018 demonstrated a left ventricular ejection fraction of 60 to 65% with normal RVSP, indicating the lower extremity swellin g is most likely from venous insufficiency * Initially on IV daptomycin but switched to doxy for continued MRSA coverage - now completed * BCX ngtd * Wound RN consulted * U/S NEGATIVE for DVT LLE (4) Left leg pain: * Xray 03/15 for increasing pain from knee to hip - shows possible stress fracture and knee effusion, follow up MRI shows fracture to be old * Pain management as above * Orthopedics consulted as above * Gout as above (5) Diabetes mellitus: * Has been having periodic issues with hyperglycemia, preop required insulin gtt, now improved. * A1c 6.8 * Holding home meds while inpatient * Pharmacy Glycemic consult -- did have episode of hypoglycemia last night to 60s (6) Chronic kidney disease, stage 3: * Patient follows with Dr. Bhatt for chronic kidney disease. Baseline creatinine appears to be 1.5 - 1.8. * Avoid nephrotoxic med * IVF with diuretic for hypercalcemia and given calcitonin x 1 on 03/24 * Cr at baseline * Iron labs with iron 38 -- given Epogen 4,[address] Jacobo. Repeat cbc with improvement to 8.2/26.2 * Nephrology consulted -- appreciate assistance * BMP in AM (7) Hypertension: * Torsemide * BP stable * Continue to monitor (8) Peripheral neuropathy: * PT OT ordered * Fall precautions * Continue home gabapentin * B12 666 (9) Hypothyroidism: * Last TSH 03/13/20 1.8 * Continue levothyroxine 75 mcg p.o. every morning (10) Hyperlipidemia: * Last lipid panel October 2019 * Continue gemfibrozil (11) Generalized osteoarthritis of multiple sites: * PT OT * Pain control as above (12) Edema: * torsemide as above -- edema at baseline (13) Afib: * Patient had 1 episode of documented atrial fibrillation during an admission September 2018, she was very acutely ill at that time. She spontaneously converted with 1 dose of IV Lopressor and has had no further events after that. She was on metoprolol 25 mg daily and was not started on anticoagulation and maintain normal sinus rhythm. Subsequently Toprol was stopped and she has since had no episodes of atrial fibrillation. * Monitor for development of A. fib -- RRR on examination (14) Anemia: * of chronic disease. Stable, baseline appears to be around 8.5 - 11 * See above-- given epogen. Iron low normal and started on oral replacement -- continue at d/c (15) Pressure ulcer: * Stage 3 Pressure ulcer of left & right medial buttock, POA * Wound care nurse consulted * Turn and reposition frequently * Improving (16) Hypoxia: * Resolved * Overnight pulse ox without desaturation * CXR with L basilar atelectasis/scarring * 96% on RA * No further desat events since 03/19 * Continued encouragement for Incentive Spirometer (17) DVT prophylaxis: * heparin subq Dispo: Was to go to [facility] at discharge but now they are not able to take Ms. Mike at this time due to possible positive covid. Patient now wants to go home with home health. I have some concerns about her going home and I discussed with her that I feel she is a fall risk. She feels her will be able to assist her. Will have ID weigh in on patient and then re-evaluate discharge plans tomorrow. Now with IV abx being necessary will make discharge to home more complicated. CM will follow up with patient on this. Admission and Anticipated Discharge Date Admission Date: March 15, 2020 Subjective Ms. Mike is fatigued but the pain in her knee has improved Review of Systems Constitutional: no fever, no chills and no body aches Respiratory: no cough and no dyspnea Cardiovascular: no chest pain and no palpitations Gastrointestinal: no abdominal pain, no nausea and no vomiting Genitourinary: no dysuria and no urinary hesitancy Musculoskeletal: no back pain and no joint pain Integumentary: no rash Physical Exam Physical Exam: General: no distress Eyes: normal inspection, PERLL Respiratory: chest non tender, clear to auscultation, normal breath sounds, no respiratory distress, no accessory muscle use Cardiac: regular rate and rhythm, no rub or gallop, no murmur, no edema, no jvd GI/: active bowel sounds, no abd pain or tenderness, soft, non distended Extremities: normal range of motion, normal strength, non tender Neuro/Psych: alert and oriented x 3, normal mood and affect Skin: normal color, dry Results & Data Results & Data ([facility]) Vital Signs (Past 12 Hours) Vital Signs Temp Pulse Resp BP Pulse Ox 03/30/20 14:00 36.7 C 85 18 111/45 L 98 03/30/20 07:15 36.5 C 77 18 109/61 94 PG Care Time/CCT Total # of Minutes Spent Total Time Spent with Patient: Total time spent is greater than 50% in coordination of care (as documented) at patient's floor/unit and/or counseling patient: Coding Level of Care Code 68239 Subseq Hosp Care Lvl 2 Diagnoses Septic arthritis of knee M00.9 Knee effusion, left M25.462 Cellulitis L03.90 Left leg pain M79.605 Diabetes mellitus E11.9 Chronic kidney disease, stage 3 N18.3 Hypertension I10 Hypertension type: essential hypertension Peripheral neuropathy G62.9 Hypothyroidism E03.9 Hyperlipidemia E78.5 Generalized osteoarthritis of multiple sites M15.9 Edema R60.9 Afib I48.91 Atrial fibrillation type: unspecified Anemia D64.9 Pressure ulcer L89.90 Hypoxia R09.02 DVT prophylaxis Z29.9 (1) Afib Atrial fibrillation type: unspecified Qualified Code(s): I48.91 - Unspecified atrial fibrillation (2) Hypertension Hypertension type: essential hypertension Qualified Code(s): I10 - Essential (primary) hypertension
[2020-03-30] MEDS ORDERED: CEFEPIME CONSULT ACTIVE PRN (15:41)
[2020-03-30] MEDS: CEFEPIME 2,000 MG in SYRINGE 0 ML IV SCH (16:13)
[2020-03-30] MEDS ORDERED: INSULIN HUMAN NPH SC SCH (16:30)
[2020-03-30] MEDS: GABAPENTIN 100 MG CAP PO SCH (21:12)
[2020-03-31] MEDS: oxyCODONE HCL IR 5 MG TAB (IMMEDIATE RELEASE) PO PRN ×2 (00:37→04:58)
[2020-03-31] MEDS: ACETAMINOPHEN 500 MG TAB PO SCH ×3 (05:55→21:12)
[2020-03-31] MEDS: LEVOTHYROXINE SODIUM 75 MCG TABLET PO SCH (05:55)
[2020-03-31] MEDS: HEPARIN SOD 5,000 UNIT/0.5 ML VIAL SQ SCH ×3 (05:55→21:13)
[2020-03-31 06:51] LABS: Basophils # (auto) 0.02 K/uL (0-0.2); Basophils % (auto) 0.2 %; Eosinophils # (auto) 0.33 K/uL (0-0.5); Eosinophils % (auto) 3.3 %; Hematocrit (blood only) 25.8 % (37-47); Hemoglobin 8.2 g/dL (12.0-16.0); Immature Granulocytes # (auto) 0.06 K/uL (0.00-0.02); Immature Granulocytes % (auto) 0.6 %; Lymphocytes # (auto) 2.07 K/uL (1.2-3.4); Lymphocytes % (auto) 20.7 %; Mean Corpuscular Hemoglobin 29.5 pg (25-34); Mean Corpuscular Hgb Conc 31.8 g/dL (32-36); Mean Corpuscular Volume 92.8 fL (80-100); Mean Platelet Volume 9.8 fL (7.4-10.4); Monocytes # (auto) 0.73 K/uL (0.11-0.59); Monocytes % (auto) 7.3 %; Neutrophils # (auto) 6.77 K/uL (1.4-6.5); Neutrophils % (auto) 67.9 %; Platelet Count 407 K/uL (130-400); RDW Coefficient of Variation 15.3 % (11.5-14.5); RDW Standard Deviation 52.1 fL (36.4-46.3); Red Blood Count 2.78 M/uL (4.2-5.4); White Blood Count 9.98 K/uL (4.8-10.8)
[2020-03-31 07:22] LABS: Albumin Level 1.9 gm/dl (3.4-5.0); BUN Creatinine Ratio 31.5 (10-20); Calcium 9.1 mg/dl (8.5-10.1); Creatinine Clr Calc Pharmacy 21.9 ml/min; Est GFR (African American) 23.9; Est GFR (Non-African American) 20.6; Potassium 4.4 mmol/L (3.5-5.1)
[2020-03-31 07:25] LABS: Albumin Globulin Ratio 0.4 (0.9-2); Bilirubin,Total 0.4 mg/dl (0.2-1); C Reactive Protein 18.8 mg/dl (0-0.29); Globulin 5.4 gm/dl (2.5-4.0); Total Protein 7.3 gm/dl (6.4-8.2)
[2020-03-31] MEDS: gemfibroziL 600 MG TAB PO SCH (09:56)
[2020-03-31] MEDS: ASCORBIC ACID 500 MG TAB PO SCH (09:57)
[2020-03-31] MEDS: ASPIRIN 81 MG ECTAB PO SCH (09:57)
[2020-03-31] MEDS: FERROUS SULFATE 325 MG TAB PO SCH (09:57)
[2020-03-31] MEDS: POLYETHYLENE (MIRALAX) 17 GM PACK PO SCH ×2 (09:58→20:48)
[2020-03-31] MEDS: CEROVITE ADV FORMULA TAB PO SCH (09:58)
[2020-03-31] MEDS: LIDOCAINE 5% 1 PATCH TD SCH (09:58)
[2020-03-31] MEDS: OMEGA-3 (PURIFIED FISH OIL) 1 GM CAP PO SCH (09:59)
[2020-03-31] MEDS: INSULIN ASPART 100 UNITS/ML 3 ML PEN SC SCH ×4 (10:03→20:51)
[2020-03-31] MEDS: INSULIN HUMAN NPH SC SCH ×2 (10:05→18:39)
--- NOTE | 2020-03-31 12:12 | Pharmacy Report ---
Glycemic Control Progress Note - Date of Service March 31, 2020 - Scope Glycemic Pharmacist consulted for glycemic control to write orders per [facility] inpatient glycemic control protocol. - Objective Accuchecks BSG(last 24 hours):: 03/30/20 03/30/20 03/31/20 17:28 20:44 06:21 Glucose 179 H POC Glucose 122 H 135 H 03/31/20 03/31/20 08:22 12:01 Glucose POC Glucose 195 H 169 H HbA1c:: Hemoglobin A1c 6.8 % (4.5-5.6) H 03/15/20 05:33 - Recent Pertinent Medications The patient is currently receiving: * Basal insulin: NPH 35 units in the morning and 15 units in the evening * Correctional Insulin: Novolog Correction per scale ACHS Goal Range: Low 110 mg/dL - High 140 mg/dL Correction Factor: 15 mg/dL/unit * Prandial insulin: Per carb ratio of 1 unit per 5 grams CHO consumed - Outpatient Anti-Diabetic Meds Novolin 70/30 -- 60 units BID - Assessment & Plan ASSESSMENT: * See progress note from 03/14/20 for more background info, in short: * Pt receiving SQ basal bolus insulin regimen for hyperglycemia secondary to baseline DM (outpatient regimen on hold). Patient currently on cefepime for knee infection. * Patient is currently receiving an average of 91 units of insulin per day * 50 units of basal insulin * 41 units of prandial/correctional insulin * BSGs ranging 119 - 155 mg/dl over the past 24hrs * Changes needed to insulin regimen: * AM Fasting BSG = 195 mg/dl. This is above goal range for patient based on inpatient targets and co-morbidities. Therefore Basal insulin will be increased in the evening to 20 units. * Post-prandial BSGs are in range therefore no changes needed to CF/CR. * Total daily dose = ~100 units. PLAN FOR INPATIENT GLYCEMIC CONTROL: * Continuing NPH 35 units SQ in the morning and INCREASING NPH to 20 units SQ in the evening * Continuing correction factor of 15 mg/dl/unit * Continuing carb ratio of 1 unit per 5 grams CHO consumed * Continuing goal range of Low 110 mg/dL - High 140 mg/dL RECOMMENDATIONS FOR DISCHARGE: * Patient's HbA1C indicates very tight control for her age and comorbidities. * Could consider a decrease in outpatient insulin if patient is suffering from hypoglycemia. * Otherwise, patient's insulin requirements inhouse match outpatient requirements so could continue. Thank you.
--- NOTE | 2020-03-31 13:13 | Hospitalist Progress Note ---
Date of Service March 31, 2020 Assessment & Plan (1) Septic arthritis of knee: * Septic knee growing pseudomonas sensitive to Cipro - continue 500 mg daily for [address] Murguia * s/p LEFT KNEE I&D washout on 03/[address] Murguia * Pain control with oxycodone, tylenol * Blood cultures NGTD * MRI with edema of hamstrings, likely related to edematous state (torsemide was resumed) * Lyme negative, peripheral smear negative for evidence anaplasmosis. ck 24 * WBCs continue to be slightly elevated at 11.4, last febrile briefly 03/28 despite round the clock tylenol administration - no other s/s of infection, procal wnl, CRP is decreasing * --> Given 1.2mg, 0.6mg Colchicine 03/23 * --> Added allopurinol QOD for renal function -- continue at d/c * Persistent leukocytosis and knee pain though some knee pain is chronic - Consulted infectious disease - recommended changing to cefepime from Cipro given intermediate susceptibility of Levaquin. Cefepime should be increased to 2 gm iv [id number] if CrCl improves to 30-60. Will need 4-6 weeks of IV abx therapy from 03/31/20. - Check weekly CBC and BMP and biweekly CRP while on cefepime - May remove picc after completion of iv abx therapy - May follow up w/ ID outpatient clinic via telephonic encounter or televideo visit w/in 3-5 weeks * Ortho saw patient 03/30 as well and felt knee looked like it was improving * h/h low but stable -- iron stores checked with iron 38 and was provided epogen 4,000 on 03/[address] on daily iron replacement -- continue (2) Knee effusion, left: * See above * Culture with pseudomonas * Fluid analysis with evidence of gout -- colchicine as above, allopurinol (3) Cellulitis: * bilateral lower extremities * Cellulitis secondary to chronic venous stasis ulcers in the setting of chronic venous insufficiency * Per the patient she has a longstanding history of chronic venous insufficiency with chronic venous stasis ulcers. * Most recent echo in September 2018 demonstrated a left ventricular ejection fracti on of 60 to 65% with normal RVSP, indicating the lower extremity swelling is most likely from venous insufficiency * Initially on IV daptomycin but switched to doxy for continued MRSA coverage - now completed * BCX ngtd * Wound RN consulted * U/S NEGATIVE for DVT LLE (4) Left leg pain: * Xray 03/15 for increasing pain from knee to hip - shows possible stress f racture and knee effusion, follow up MRI shows fracture to be old * Pain management as above * Orthopedics consulted as above * Gout as above (5) Diabetes mellitus: * Has been having periodic issues with hyperglycemia, preop required insulin gtt, now improved. * A1c 6.8 * Holding home meds while inpatient * Pharmacy Glycemic consult (6) Chronic kidney disease, stage 3: * Patient follows with Dr. Bhatt for chronic kidney disease. Baseline creatinine appears to be 1.5 - 1.8. * Avoid nephrotoxic med * IVF with diuretic for hypercalcemia and given calcitonin x 1 on 03/24 * Cr at baseline * Iron labs with iron 38 -- given Epogen 4,[address] Jacobo. Repeat cbc with improvement to 8.2/26.2 * Nephrology consulted -- appreciate assistance * BMP is up to 2.15 today - will hold torsemide for today (7) Hypertension: * Torsemide * BP stable * Continue to monitor (8) Peripheral neuropathy: * PT OT ordered * Fall precautions * Continue home gabapentin * B12 666 (9) Hypothyroidism: * Last TSH 03/13/20 1.8 * Continue levothyroxine 75 mcg p.o. every morning (10) Hyperlipidemia: * Last lipid panel October 2019 * Continue gemfibrozil (11) Generalized osteoarthritis of multiple sites: * PT OT * Pain control as above (12) Edema: * torsemide as above -- edema at baseline (13) Afib: * Patient had 1 episode of documented atrial fibrillation during an admission September 2018, she was very acutely ill at that time. She spontaneously converted with 1 dose of IV Lopressor and has had no further events after that. She was on metoprolol 25 mg daily and was not started on anticoagulation and maintain normal sinus rhythm. Subsequently Toprol was stopped and she has since had no episodes of atrial fibrillation. * Monitor for development of A. fib -- irregular rhythm today, will check an EKG (14) Anemia: * of chronic disease. Stable, baseline appears to be around 8.5 - 11 * See above-- given epogen. Iron low normal and started on oral replacement -- continue at d/c (15) Pressure ulcer: * Stage 3 Pressure ulcer of left & right medial buttock, POA * Wound care nurse consulted * Turn and reposition frequently * Improving (16) Hypoxia: * Resolved * Overnight pulse ox without desaturation * CXR with L basilar atelectasis/scarring * 96% on RA * No further desat events since 03/19 * Continued encouragement for Incentive Spirometer (17) DVT prophylaxis: * heparin subq Dispo: Was to go to [facility] at discharge but now they are not able to take Ms. Mike at this time due to possible positive covid. Patient now wants to go home with home health. I have some concerns about her going home and I discussed with her that I feel she is a fall risk. She feels her will be able to assist her. Script for cefepime and labs given to Case management. Patient will be able to discharge Saturday to meet with home health for first home dose of cefepime on Saturday Admission and Anticipated Discharge Date Admission Date: March 15, 2020 Supervising Physician Co-Signing Physician Notes I supervised Francisca Ford NP on this patient's care. I examined the patient today independently of her. I discussed the plan of care with her with the plan being as written in her note except for any following changes/exceptions: None. No major concerns today. Consented for PICC as she will need cefepime per Pamela ID. CM working on cost & administration set-up. Subjective No major distress today. Reports no fevers/chills, chest pain, shortness of breath, abdominal pain, nausea, or vomiting. Physical Exam Physical Exam: General: no distress Eyes: normal inspection, PERLL Respiratory: chest non tender, clear to auscultation, normal breath sounds, no respiratory distress, no accessory muscle use Cardiac: irregular rate and rhythm, no rub or gallop, no murmur, +1 pitting edema bilateral le, no jvd GI/: active bowel sounds, no abd pain or tenderness, soft, non distended Extremities: normal range of motion, normal strength, non tender Neuro/Psych: alert and oriented x 3, normal mood and affect Skin: normal color, dry,r>l bilateral le erythema secondary to vascular insufficiency Results & Data Results & Data ([facility]) Vital Signs (Past 12 Hours) Vital Signs Temp Pulse Resp BP Pulse Ox 03/31/20 06:42 36.7 C 82 19 108/50 L 94 PG Care Time/CCT Total # of Minutes Spent Total Time Spent with Patient: Total time spent is greater than 50% in coordination of care (as documented) at patient's floor/unit and/or counseling patient: Coding Level of Care Code 90176 Subseq Hosp Care Lvl 2 Diagnoses Septic arthritis of knee M00.9 Knee effusion, left M25.462 Cellulitis L03.90 Left leg pain M79.605 Diabetes mellitus E11.9 Chronic kidney disease, stage 3 N18.3 Hypertension I10 Hypertension type: essential hypertension Peripheral neuropathy G62.9 Hypothyroidism E03.9 Hyperlipidemia E78.5 Generalized osteoarthritis of multiple sites M15.9 Edema R60.9 Afib I48.91 Atrial fibrillation type: unspecified Anemia D64.9 Pressure ulcer L89.90 Hypoxia R09.02 DVT prophylaxis Z29.9 (1) Afib Atrial fibrillation type: unspecified Qualified Code(s): I48.91 - Unspecified atrial fibrillation (2) Hypertension Hypertension type: essential hypertension Qualified Code(s): I10 - Essential (primary) hypertension
[2020-03-31] MEDS: CEFEPIME 2,000 MG in SYRINGE 0 ML IV SCH (16:14)
[2020-03-31 16:53] LABS: Basophils # (auto) 0.02 K/uL (0-0.2); Basophils % (auto) 0.2 %; Eosinophils # (auto) 0.36 K/uL (0-0.5); Eosinophils % (auto) 3.6 %; Hematocrit (blood only) 26.7 % (37-47); Hemoglobin 8.5 g/dL (12.0-16.0); Immature Granulocytes # (auto) 0.09 K/uL (0.00-0.02); Immature Granulocytes % (auto) 0.9 %; Lymphocytes # (auto) 1.96 K/uL (1.2-3.4); Lymphocytes % (auto) 19.3 %; Mean Corpuscular Hemoglobin 29.4 pg (25-34); Mean Corpuscular Hgb Conc 31.8 g/dL (32-36); Mean Corpuscular Volume 92.4 fL (80-100); Mean Platelet Volume 9.8 fL (7.4-10.4); Monocytes # (auto) 0.63 K/uL (0.11-0.59); Monocytes % (auto) 6.2 %; Neutrophils # (auto) 7.07 K/uL (1.4-6.5); Neutrophils % (auto) 69.8 %; Platelet Count 351 K/uL (130-400); RDW Coefficient of Variation 15.3 % (11.5-14.5); RDW Standard Deviation 51.8 fL (36.4-46.3); Red Blood Count 2.89 M/uL (4.2-5.4); White Blood Count 10.13 K/uL (4.8-10.8)
[2020-03-31] MEDS: GABAPENTIN 100 MG CAP PO SCH (20:49)
[2020-04-01] MEDS: LEVOTHYROXINE SODIUM 75 MCG TABLET PO SCH (06:07)
[2020-04-01] MEDS: ACETAMINOPHEN 500 MG TAB PO SCH ×3 (06:07→22:06)
[2020-04-01] MEDS: HEPARIN SOD 5,000 UNIT/0.5 ML VIAL SQ SCH ×3 (06:07→22:06)
[2020-04-01 07:20] LABS: Albumin Level 1.9 gm/dl (3.4-5.0); BUN Creatinine Ratio 35.2 (10-20); C Reactive Protein 16.6 mg/dl (0-0.29); Calcium 9.6 mg/dl (8.5-10.1); Creatinine Clr Calc Pharmacy 27.4 ml/min; Est GFR (African American) 31.3; Potassium 4.6 mmol/L (3.5-5.1)
[2020-04-01 07:23] LABS: Albumin Globulin Ratio 0.4 (0.9-2); Bilirubin,Total 0.3 mg/dl (0.2-1); Globulin 5.2 gm/dl (2.5-4.0); Total Protein 7.1 gm/dl (6.4-8.2)
[2020-04-01] MEDS: ASPIRIN 81 MG ECTAB PO SCH (09:37)
[2020-04-01] MEDS: FERROUS SULFATE 325 MG TAB PO SCH (09:38)
[2020-04-01] MEDS: gemfibroziL 600 MG TAB PO SCH (09:38)
[2020-04-01] MEDS: ASCORBIC ACID 500 MG TAB PO SCH (09:38)
[2020-04-01] MEDS: CEROVITE ADV FORMULA TAB PO SCH (09:38)
[2020-04-01] MEDS: POLYETHYLENE (MIRALAX) 17 GM PACK PO SCH ×2 (09:38→22:06)
[2020-04-01] MEDS: LIDOCAINE 5% 1 PATCH TD SCH (09:39)
[2020-04-01] MEDS: OMEGA-3 (PURIFIED FISH OIL) 1 GM CAP PO SCH (09:39)
[2020-04-01] MEDS: INSULIN ASPART 100 UNITS/ML 3 ML PEN SC SCH ×4 (09:42→21:17)
[2020-04-01] MEDS: INSULIN HUMAN NPH SC SCH ×2 (09:43→19:04)
--- NOTE | 2020-04-01 09:49 | Electrocardiogram Report ---
Test Reason : Blood Pressure : / mmHG Vent. Rate : 087 BPM Atrial Rate : 087 BPM P-R Int : 168 ms QRS Dur : 100 ms QT Int : 410 ms P-R-T Axes : 049 009 039 degrees QTc Int : 493 ms Sinus rhythm with Premature atrial complexes in a pattern of bigeminy Prolonged QT Abnormal ECG When compared with ECG of 20-OCT-2018 12:55, Premature atrial complexes are now Present QT has prolonged Confirmed by Jose Medrano ([id number]) on 04/01/2020 9:49:09 AM Referred By: REFERRED SELF Confirmed By:Jose Medrano
[2020-04-01] MEDS: allopurinoL 100 MG TAB PO SCH (12:57)
--- NOTE | 2020-04-01 16:31 | Hospitalist Progress Note ---
Date of Service April 01, 2020 Assessment & Plan (1) Septic arthritis of knee: * Septic knee growing pseudomonas sensitive to Cipro - continue 500 mg daily for [address] Murguia * s/p LEFT KNEE I&D washout on 03/[address] Murguia * Pain control with oxycodone, tylenol * Blood cultures NGTD * MRI with edema of hamstrings, likely related to edematous state (torsemide was resumed) * Lyme negative, peripheral smear negative for evidence anaplasmosis. ck 24 * WBCs continue to be slightly elevated at 11.4, last febrile briefly 03/28 despite round the clock tylenol administration - no other s/s of infection, procal wnl, CRP is decreasing * --> Given 1.2mg, 0.6mg Colchicine 03/23 * --> Added allopurinol QOD for renal function -- continue at d/c * Persistent leukocytosis and knee pain though some knee pain is chronic - Consulted infectious disease - recommended changing to cefepime from Cipro given intermediate susceptibility of Levaquin. Cefepime should be increased to 2 gm iv [id number] if CrCl improves to 30-60. Will need 4-6 weeks of IV abx therapy from 03/31/20. - Check weekly CBC and BMP and biweekly CRP while on cefepime - May remove picc after completion of iv abx therapy - May follow up w/ ID outpatient clinic via telephonic encounter or televideo visit w/in 3-5 weeks * Ortho saw patient 03/30 as well and felt knee looked like it was improving * PICC placed * Alk phos has been elevated - may be secondary to knee but will need followed outpatient (2) Knee effusion, left: * See above * Culture with pseudomonas * Fluid analysis with evidence of gout -- colchicine as above, allopurinol (3) Cellulitis: * bilateral lower extremities * Cellulitis secondary to chronic venous stasis ulcers in the setting of chronic venous insufficiency * Per the patient she has a longstanding history of chronic venous insufficiency with chronic venous stasis ulcers. * Most recent echo in September 2018 demonstrated a left ventricular ejection fraction of 60 to 65% with normal RVSP, indicating the lower extremity swelling is most likely from venous insufficiency * Initially on IV daptomycin but switched to doxy for continued MRSA coverage - now completed * BCX ngtd * Wound RN consulted * U/S NEGATIVE for DVT LLE (4) Left leg pain: * Xray 03/15 for increasing pain from knee to hip - shows possible stress fracture and knee effusion, follow up MRI shows fracture to be old * Pain management as above * Orthopedics consulted as above * Gout as above (5) Diabetes mellitus: * Has been having periodic issues with hyperglycemia, preop required insulin gtt, now improved. * A1c 6.8 * Holding home meds while inpatient * Pharmacy Glycemic consult (6) Peripheral neuropathy: * PT OT ordered * Fall precautions * Continue home gabapentin * B12 666 (7) Hypothyroidism: * Last TSH 03/13/20 1.8 * Continue levothyroxine 75 mcg p.o. every morning (8) Hyperlipidemia: * Last lipid panel October 2019 * Continue gemfibrozil (9) Generalized osteoarthritis of multiple sites: * PT OT * Pain control as above (10) Edema: * continue torsemide (11) Afib: * Patient had 1 episode of documented atrial fibrillation during an admission September 2018, she was very acutely ill at that time. She spontaneously converted with 1 dose of IV Lopressor and has had no further events after t hat. She was on metoprolol 25 mg daily and was not started on anticoagulation and maintain normal sinus rhythm. Subsequently Toprol was stopped and she has since had no episodes of atrial fibrillation. * Monitor for development of A. fib -- irregular rhythm today - EKG with bigeminy, QT prolonged (may improve now off of Cipro) (12) Anemia: * of chronic disease. Stable, baseline appears to be around 8.5 - 11 * See above-- given epogen. Iron low normal and started on oral replacement -- continue at d/c * h/h low but stable -- iron stores checked with iron 38 and was provided epogen 4,000 on 03/[address] on daily iron replacement - (13) Chronic kidney disease, stage III (moderate): Patient follows with Dr. Bhatt for chronic kidney disease. Baseline creatinine appears to be 1.5 - 1.8. Avoid nephrotoxic med Cr at baseline Iron labs with iron 38 -- given Epogen 4,[address] Jacobo. Repeat cbc with improvement to 8.2/26.2 Nephrology consulted -- appreciate assistance (14) Pressure ulcer: * Stage 3 Pressure ulcer of left & right medial buttock, POA * Wound care nurse consulted * Turn and reposition frequently * Improving (15) Hypoxia: * Resolved * Overnight pulse ox without desaturation * CXR with L basilar atelectasis/scarring * 96% on RA * No further desat events since 03/19 * Continued encouragement for Incentive Spirometer (16) Hypercalcemia: IVF with diuretic for hypercalcemia and given calcitonin x 1 on 03/24 Continues to be hypercalcemia - vitamin D level and PTH low normal Globulin marcial noted Patient may need further workup for possible malignancy (17) DVT prophylaxis: * heparin subq Dispo: Was to go to [facility] at discharge but now they are not able to take Ms. Mike at this time due to possible positive covid. Patient now wants to go home with home health. I have some concerns about her going home and I discussed with her that I feel she is a fall risk. She feels her will be able to assist her. Script for cefepime and labs given to Case management. Patient will be able to discharge Saturday to meet with home health for first home dose of cefepime on Saturday Admission and Anticipated Discharge Date Admission Date: March 15, 2020 Subjective Ms. Mike's pain continues to have improve. She is tired but otherwise has no complaints Review of Systems Constitutional: no fever, no chills and no body aches Respiratory: no cough and no dyspnea Cardiovascular: no chest pain and no palpitations Gastrointestinal: no abdominal pain, no nausea and no vomiting Genitourinary: no dysuria and no urinary hesitancy Musculoskeletal: no back pain and no joint pain Integumentary: no rash Physical Exam Physical Exam: General: no distress Eyes: normal inspection, PERLL Respiratory: chest non tender, clear to auscultation, normal breath sounds, no respiratory distress, no accessory muscle use Cardiac: regular rate and rhythm, no rub or gallop, no murmur, +2 pitting edema, no jvd GI/: active bowel sounds, no abd pain or tenderness, soft, non distended Extremities: normal range of motion, normal strength, non tender Neuro/Psych: alert and oriented x 3, normal mood and affect Skin: normal color, dry, chronic erythema lower extremities right > left Results & Data Results & Data ([facility]) Vital Signs (Past 12 Hours) Vital Signs Temp Pulse Resp BP Pulse Ox 04/01/20 07:57 36.7 C 75 18 106/58 L 94 PG Care Time/CCT Total # of Minutes Spent Total Time Spent with Patient: Total time spent is greater than 50% in coordination of care (as documented) at patient's floor/unit and/or counseling patient: Coding Level of Care Code 99855 Subseq Hosp Care Lvl 3 Diagnoses Septic arthritis of knee M00.9 Knee effusion, left M25.462 Cellulitis L03.90 Left leg pain M79.605 Diabetes mellitus E11.9 Peripheral neuropathy G62.9 Hypothyroidism E03.9 Hyperlipidemia E78.5 Generalized osteoarthritis of multiple sites M15.9 Edema R60.9 Afib I48.91 Atrial fibrillation type: unspecified Anemia D64.9 Chronic kidney disease, stage III (moderate) N18.30 Pressure ulcer L89.90 Hypoxia R09.02 Hypercalcemia E83.52 DVT prophylaxis Z29.9 (1) Afib Atrial fibrillation type: unspecified Qualified Code(s): I48.91 - Unspecified atrial fibrillation
[2020-04-01] MEDS: CEFEPIME 2,000 MG in SYRINGE 0 ML IV SCH (17:16)
[2020-04-01] MEDS: TORSEMIDE 20 MG TAB PO SCH (22:05)
[2020-04-01] MEDS: GABAPENTIN 100 MG CAP PO SCH (22:06)
[2020-04-02] MEDS: HEPARIN SOD 5,000 UNIT/0.5 ML VIAL SQ SCH ×3 (06:16→21:33)
[2020-04-02] MEDS: LEVOTHYROXINE SODIUM 75 MCG TABLET PO SCH (06:16)
[2020-04-02] MEDS: ACETAMINOPHEN 500 MG TAB PO SCH ×3 (06:16→21:33)
[2020-04-02 06:28] LABS: Basophils # (auto) 0.02 K/uL (0-0.2); Basophils % (auto) 0.2 %; Eosinophils # (auto) 0.41 K/uL (0-0.5); Eosinophils % (auto) 4.6 %; Hemoglobin 8.6 g/dL (12.0-16.0); Immature Granulocytes % (auto) 1.1 %; Lymphocytes # (auto) 2.21 K/uL (1.2-3.4); Lymphocytes % (auto) 24.5 %; Mean Corpuscular Hemoglobin 29.9 pg (25-34); Mean Corpuscular Hgb Conc 31.9 g/dL (32-36); Mean Corpuscular Volume 93.8 fL (80-100); Mean Platelet Volume 10.2 fL (7.4-10.4); Monocytes # (auto) 0.56 K/uL (0.11-0.59); Monocytes % (auto) 6.2 %; Neutrophils # (auto) 5.71 K/uL (1.4-6.5); Neutrophils % (auto) 63.4 %; Platelet Count 340 K/uL (130-400); RDW Coefficient of Variation 15.5 % (11.5-14.5); RDW Standard Deviation 52.7 fL (36.4-46.3); Red Blood Count 2.88 M/uL (4.2-5.4); White Blood Count 9.01 K/uL (4.8-10.8)
[2020-04-02 06:53] LABS: BUN Creatinine Ratio 31.3 (10-20); Calcium 9.1 mg/dl (8.5-10.1); Creatinine Clr Calc Pharmacy 28.7 ml/min; Est GFR (African American) 33.2; Est GFR (Non-African American) 28.6; Potassium 4.4 mmol/L (3.5-5.1)
[2020-04-02 06:55] LABS: Albumin Globulin Ratio 0.4 (0.9-2); Bilirubin,Total 0.3 mg/dl (0.2-1); C Reactive Protein 15.3 mg/dl (0-0.29); Globulin 5.3 gm/dl (2.5-4.0); Total Protein 7.3 gm/dl (6.4-8.2)
--- NOTE | 2020-04-02 09:37 | Hospitalist Progress Note ---
Date of Service April 02, 2020 Assessment & Plan (1) Septic arthritis of knee: * Septic knee growing pseudomonas sensitive to Cipro - continue 500 mg daily for [address] Murguia * s/p LEFT KNEE I&D washout on 03/[address] Murguia * Pain control with oxycodone, tylenol * Blood cultures NGTD * MRI with edema of hamstrings, likely related to edematous state (torsemide was resumed) * Lyme negative, peripheral smear negative for evidence anaplasmosis. ck 24 * WBCs continue to be slightly elevated at 11.4, last febrile briefly 03/28 despite round the clock tylenol administration - no other s/s of infection, procal wnl, CRP is decreasing * --> Given 1.2mg, 0.6mg Colchicine 03/23 * --> Added allopurinol QOD for renal function -- continue at d/c * Persistent leukocytosis and knee pain though some knee pain is chronic - Consulted infectious disease - recommended changing to cefepime from Cipro given intermediate susceptibility of Levaquin. Cefepime should be increased to 2 gm iv [id number] if CrCl improves to 30-60 (currently 28). Will need 4-6 weeks of IV abx therapy from 03/31/20. - Check weekly CBC and BMP and biweekly CRP while on cefepime - May remove picc after completion of iv abx therapy - May follow up w/ ID outpatient clinic via telephonic encounter or televideo visit w/in 3-5 weeks * Ortho saw patient 03/30 as well and felt knee looked like it was improving * PICC placed * Alk phos has been elevated - may be secondary to knee but will need followed outpatient -- additional labs pending for myelodysplastic disease. Will need f/u regarding these and hypercalcemia at discharge (2) Knee effusion, left: * See above * Culture with pseudomonas * Fluid analysis with evidence of gout -- colchicine as above, allopurinol (3) Cellulitis: * bilateral lower extremities * Cellulitis secondary to chronic venous stasis ulcers in the setting of chronic venous insufficiency * Per the patient she has a longstanding history of chronic venous insufficiency with chronic venous stasis ulcers. * Most recent echo in September 2018 demonstrated a left ventricular ejection fraction of 60 to 65% with normal RVSP, indicating the lower extremity swelling is most likely from venous insufficiency * Initially on IV daptomycin but switched to doxy for continued MRSA coverage - now completed * BCX ngtd * Wound RN consulted * U/S NEGATIVE for DVT LLE (4) Left leg pain: * Xray 03/15 for increasing pain from knee to hip - shows possible stress fracture and knee effusion, follow up MRI shows fracture to be old * Pain management as above * Orthopedics consulted as above * Gout as above (5) Diabetes mellitus: * Has been having periodic issues with hyperglycemia, preop required insulin gtt, now improved. * A1c 6.8 * Holding home meds while inpatient * Pharmacy Glycemic consult (6) Peripheral neuropathy: * PT OT ordered * Fall precautions * Continue home gabapentin * B12 666 (7) Hypothyroidism: * Last TSH 03/13/20 1.8 * Continue levothyroxine 75 mcg p.o. every morning (8) Hyperlipidemia: * Last lipid panel October 2019 * Continue gemfibrozil (9) Generalized osteoarthritis of multiple sites: * PT OT * Pain control as above (10) Edema: * continue torsemide (11) Afib: * Patient had 1 episode of documented atrial fibrillation during an admission September 2018, she was very acutely ill at that time. She spontaneously converted with 1 dose of IV Lopressor and has had no further events after that. She was on metoprolol 25 mg daily and was not started on anticoagulation and maintain normal sinus rhythm. Subsequently Toprol was stopped and she has since had no episodes of atrial fibrillation. * Monitor for development of A. fib -- irregular rhythm today - EKG with bigeminy, QT prolonged (may improve now off of Cipro) (12) Anemia: * of chronic disease. Stable, baseline appears to be around 8.5 - 11 * See above-- given epogen. Iron low normal and started on oral replacement -- continue at d/c * h/h low but stable -- iron stores checked with iron 38 and was provided epogen 4,000 on 03/[address] on daily iron replacement - (13) Chronic kidney disease, stage III (moderate): * Patient follows with Dr. Bhatt for chronic kidney disease. Baseline creatinine appears to be 1.5 - 1.8. * Avoid nephrotoxic med * Cr at baseline * Iron labs with iron 38 -- given Epogen 4,[address] Ouray. Repeat cbc with improvement to 8.2/26.2 * Nephrology consulted -- appreciate assistance (14) Pressure ulcer: * Stage 3 Pressure ulcer of left & right medial buttock, POA * Wound care nurse consulted * Turn and reposition frequently * Improving (15) Hypoxia: * Resolved * Overnight pulse ox without desaturation * CXR with L basilar atelectasis/scarring * 95% on RA * No further desat events since 03/19 * Continued encouragement for Incentive Spirometer (16) Hypercalcemia: * IVF with diuretic for hypercalcemia and given calcitonin x 1 on 03/24 * Continues to be hypercalcemia - vitamin D level and PTH low normal * Globulin marcial noted * Patient may need further workup for possible malignancy -- will need arranged at d/c (17) DVT prophylaxis: * heparin subq Dispo: Was to go to [facility] at discharge but now they are not able to take Ms. Mike at this time due to possible positive COVID. Patient now wants to go home with home health. I have some concerns about her going home and I discussed with her that I feel she is a fall risk --- she is still adamant about returning home She feels her will be able to assist her. Script for cefepime and labs given to Case management. Patient will be able to discharge Saturday to meet with home health for first home dose of cefepime on Saturday Will update daughter, Peg this evening about plan Admission and Anticipated Discharge Date Admission Date: March 15, 2020 Subjective Patient evaluated this morning. Pain much better controlled, more of a "dull ache". Was able to ambulate in room with walker this morning without as much difficulty. No fever, chills, chest pain, shortness of breath, abdominal pain, nausea or vomiting noted. Patient would like daughter Peg updated on plan today. She had PICC line placed prior and will need continued IV abx for 6 weeks. First dose with home health on Saturday, but will receive while inpatient and arrangements made. No questions/concerns at this time. Review of Systems Review of Systems: All systems reviewed & are unremarkable except as noted in HPI & below Physical Exam Constitutional: WD/WN, vitals as above cooperative and comfortable; no acute distress Eyes: + anicteric sclerae and PERRL ENMT: Ears: no hearing impairment Mallampati Class: II Neck: normal visual inspection and trachea midline Respiratory: normal respiratory effort Auscultation: lungs clear to auscultation bilaterally and + diminished lung sounds (bases, improved) Cardiovascular: Rate/Rhythm: regular rate and regular rhythm Extremities: + edema (pedal,L>R) Gastrointestinal (Abdomen): normal bowel sounds, soft, nontender, no hepatosplenomegaly Musculoskeletal: zeke wrap to LLE decreased swelling, warmth medial aspect and lower extremity minimally tender to palpation - significantly less than last week able to plantar/dorsiflex pulses weak but palpable calves tender to palpation with improving cellulitis (resolved RLE but still wi th chronic venous stasis changes) NVI b/l buttock erythema improving Neurologic: PERRL, EOMI, accommodation nl, no face palsy, no dysarthria moves all extremities Psychiatric: Orientation: alert and oriented x 3 Lymphatic: no lymphadenopathy Results & Data Results & Data ([facility]) Vital Signs (Past 12 Hours) Vital Signs Temp Pulse Resp BP Pulse Ox 04/02/20 07:29 36.5 C 74 16 124/65 95 04/01/20 23:22 36.8 C 88 16 96/57 L 96 Laboratory Results 04/02/20 04/02/20 04/02/20 Range/Units 08:55 08:27 05:45 WBC 9.01 (4.8-10.8) K/uL RBC 2.88 L (4.2-5.4) M/uL Hgb 8.6 L (12.0-16.0) g/dL Hct 27.0 L (37-47) % MCV 93.8 (80-100) fL MCH 29.9 (25-34) pg MCHC 31.9 L (32-36) g/dL RDW Std Deviation 52.7 H (36.4-46.3) fL RDW Coeff of Brian 15.5 H (11.5-14.5) % Plt Count 340 (130-400) K/uL MPV 10.2 (7.4-10.4) fL Immature Gran % (Auto) 1.1 % Neut % (Auto) 63.4 % Lymph % (Auto) 24.5 % [place] % (Auto) 6.2 % Eos % (Auto) 4.6 % Baso % (Auto) 0.2 % Neut # (Auto) 5.71 (1.4-6.5) K/uL Lymph # (Auto) 2.21 (1.2-3.4) K/uL [place] # (Auto) 0.56 (0.11-0.59) K/uL Eos # (Auto) 0.41 (0-0.5) K/uL Baso # (Auto) 0.02 (0-0.2) K/uL Immature Gran # (Auto) 0.10 H (0.00-0.02) K/uL Sodium (136-145) mmol/L Potassium (3.5-5.1) mmol/L Chloride (98-107) mmol/L Carbon Dioxide (21-32) mmol/L Anion Gap (3-11) BUN (7-18) mg/dl Creatinine (0.6-1.2) mg/dl Est Cr Clr Drug Dosing ml/min Est GFR ( Amer) Est GFR (Non-Af Amer) BUN/Creatinine Ratio (10-20) Glucose (70-99) mg/dl POC Glucose 131 H (70-99) mg/dl Calcium (8.5-10.1) mg/dl Total Bilirubin (0.2-1) mg/dl AST (15-37) U/L ALT (12-78) U/L Alkaline Phosphatase (45-117) U/L C-Reactive Protein (0-0.29) mg/dl Total Protein (6.4-8.2) gm/dl Total Protein (PEP) Albumin (3.4-5.0) gm/dl Albumin (PEP) Globulin (2.5-4.0) gm/dl Albumin/Globulin Ratio (0.9-2) Iuaib-1-Vwnlxjbyl Srnig-0-Ohyqplyaj Yyic-2-Rpkvnofa Oakh-7-Dslnhbox Gamma Globulins Monoclonal Peak 3 Ser Monoclonl Protein Ser Monoclonal Prot 2 PEP Interpretation 25-OH Vitamin D Total (30-100) ng/ml U Random Total Protein Pending Ur Creatinine mg/dL Pending Protein/Creatinin Ratio Pending Urine Albumin (%) Pending U Abmqu-3-Nxswzoht (%) Pending U Jwdwj-0-Mxctyibr (%) Pending U Beta Globulin (%) Pending U Gamma Globulin (%) Pending U Abnormal Prot Band 1 Pending U Abnormal Prot Band 2 Pending U Abnormal Prot Band 3 Pending Urine PEP Interpret Pending Serum Immunofixation Free [place] LC, Quant Free Lambda LC, Quant Free [place]/Lambda Ratio 04/02/20 04/02/20 04/01/20 Range/Units 05:45 05:45 20:52 WBC (4.8-10.8) K/uL RBC (4.2-5.4) M/uL Hgb (12.0-16.0) g/dL Hct (37-47) % MCV (80-100) fL MCH (25-34) pg MCHC (32-36) g/dL RDW Std Deviation (36.4-46.3) fL RDW Coeff of Brian (11.5-14.5) % Plt Count (130-400) K/uL MPV (7.4-10.4) fL Immature Gran % (Auto) % Neut % (Auto) % Lymph % (Auto) % [place] % (Auto) % Eos % (Auto) % Baso % (Auto) % Neut # (Auto) (1.4-6.5) K/uL Lymph # (Auto) (1.2-3.4) K/uL [place] # (Auto) (0.11-0.59) K/uL Eos # (Auto) (0-0.5) K/uL Baso # (Auto) (0-0.2) K/uL Immature Gran # (Auto) (0.00-0.02) K/uL Sodium 137 (136-145) mmol/L Potassium 4.4 (3.5-5.1) mmol/L Chloride 103 (98-107) mmol/L Carbon Dioxide 30 (21-32) mmol/L Anion Gap 4.0 (3-11) BUN 51 H (7-18) mg/dl Creatinine 1.64 H (0.6-1.2) mg/dl Est Cr Clr Drug Dosing 28.7 ml/min Est GFR ( Amer) 33.2 Est GFR (Non-Af Amer) 28.6 BUN/Creatinine Ratio 31.3 H (10-20) Glucose 94 (70-99) mg/dl POC Glucose 128 H (70-99) mg/dl Calcium 9.1 (8.5-10.1) mg/dl Total Bilirubin 0.3 (0.2-1) mg/dl AST 18 (15-37) U/L ALT 14 (12-78) U/L Alkaline Phosphatase 123 H (45-117) U/L C-Reactive Protein 15.30 H (0-0.29) mg/dl Total Protein 7.3 (6.4-8.2) gm/dl Total Protein (PEP) Pending Albumin 2.0 L (3.4-5.0) gm/dl Albumin (PEP) Pending Globulin 5.3 H (2.5-4.0) gm/dl Albumin/Globulin Ratio 0.4 L (0.9-2) Jqvav-6-Rtfxgyelg Pending Nqpht-3-Oelmpjxet Pending Hhfy-3-Waiombet Pending Lymz-5-Jjmjcamo Pending Gamma Globulins Pending Monoclonal Peak 3 Pending Ser Monoclonl Protein Pending Ser Monoclonal Prot 2 Pending PEP Interpretation Pending 25-OH Vitamin D Total (30-100) ng/ml U Random Total Protein Ur Creatinine mg/dL Protein/Creatinin Ratio Urine Albumin (%) U Csqbt-9-Eaknhgiv (%) U Micxb-5-Cdxtsvtj (%) U Beta Globulin (%) U Gamma Globulin (%) U Abnormal Prot Band 1 U Abnormal Prot Band 2 U Abnormal Prot Band 3 Urine PEP Interpret Serum Immunofixation Pending Free [place] LC, Quant Pending Free Lambda LC, Quant Pending Free [place]/Lambda Ratio Pending 04/01/20 04/01/20 04/01/20 Range/Units 17:20 11:45 08:33 WBC (4.8-10.8) K/uL RBC (4.2-5.4) M/uL Hgb (12.0-16.0) g/dL Hct (37-47) % MCV (80-100) fL MCH (25-34) pg MCHC (32-36) g/dL RDW Std Deviation (36.4-46.3) fL RDW Coeff of Brian (11.5-14.5) % Plt Count (130-400) K/uL MPV (7.4-10.4) fL Immature Gran % (Auto) % Neut % (Auto) % Lymph % (Auto) % [place] % (Auto) % Eos % (Auto) % Baso % (Auto) % Neut # (Auto) (1.4-6.5) K/uL Lymph # (Auto) (1.2-3.4) K/uL [place] # (Auto) (0.11-0.59) K/uL Eos # (Auto) (0-0.5) K/uL Baso # (Auto) (0-0.2) K/uL Immature Gran # (Auto) (0.00-0.02) K/uL Sodium (136-145) mmol/L Potassium (3.5-5.1) mmol/L Chloride (98-107) mmol/L Carbon Dioxide (21-32) mmol/L Anion Gap (3-11) BUN (7-18) mg/dl Creatinine (0.6-1.2) mg/dl Est Cr Clr Drug Dosing ml/min Est GFR ( Amer) Est GFR (Non-Af Amer) BUN/Creatinine Ratio (10-20) Glucose (70-99) mg/dl POC Glucose 73 185 H (70-99) mg/dl Calcium (8.5-10.1) mg/dl Total Bilirubin (0.2-1) mg/dl AST (15-37) U/L ALT (12-78) U/L Alkaline Phosphatase (45-117) U/L C-Reactive Protein (0-0.29) mg/dl Total Protein (6.4-8.2) gm/dl Total Protein (PEP) Albumin (3.4-5.0) gm/dl Albumin (PEP) Globulin (2.5-4.0) gm/dl Albumin/Globulin Ratio (0.9-2) Xofcz-2-Xhzcegcpq Xznub-3-Quwscbhto Sdnh-3-Coyccasd Exhx-6-Olbefmxg Gamma Globulins Monoclonal Peak 3 Ser Monoclonl Protein Ser Monoclonal Prot 2 PEP Interpretation 25-OH Vitamin D Total 30.9 (30-100) ng/ml U Random Total Protein Ur Creatinine mg/dL Protein/Creatinin Ratio Urine Albumin (%) U Rdmpd-8-Vcwqwnnf (%) U Ccvvw-2-Drudwyje (%) U Beta Globulin (%) U Gamma Globulin (%) U Abnormal Prot Band 1 U Abnormal Prot Band 2 U Abnormal Prot Band 3 Urine PEP Interpret Serum Immunofixation Free [place] LC, Quant Free Lambda LC, Quant Free [place]/Lambda Ratio PG Care Time/CCT Total # of Minutes Spent Total Time Spent with Patient: Total time spent is greater than 50% in coordination of care (as documented) at patient's floor/unit and/or counseling patient: Coding Level of Care Code 85575 Subseq Hosp Care Lvl 2 Diagnoses Septic arthritis of knee M00.9 Knee effusion, left M25.462 Cellulitis L03.90 Left leg pain M79.605 Diabetes mellitus E11.9 Peripheral neuropathy G62.9 Hypothyroidism E03.9 Hyperlipidemia E78.5 Generalized osteoarthritis of multiple sites M15.9 Edema R60.9 Afib I48.91 Atrial fibrillation type: unspecified Anemia D64.9 Chronic kidney disease, stage III (moderate) N18.30 Pressure ulcer L89.90 Hypoxia R09.02 Hypercalcemia E83.52 DVT prophylaxis Z29.9 (1) Afib Atrial fibrillation type: unspecified Qualified Code(s): I48.91 - Unspecified atrial fibrillation
[2020-04-02] MEDS: INSULIN HUMAN NPH SC SCH ×2 (09:44→18:09)
[2020-04-02] MEDS: INSULIN ASPART 100 UNITS/ML 3 ML PEN SC SCH ×4 (09:45→21:58)
[2020-04-02] MEDS: TORSEMIDE 20 MG TAB PO SCH ×2 (09:46→19:37)
[2020-04-02] MEDS: POLYETHYLENE (MIRALAX) 17 GM PACK PO SCH ×2 (09:48→19:37)
[2020-04-02] MEDS: ASPIRIN 81 MG ECTAB PO SCH (10:14)
[2020-04-02] MEDS: FERROUS SULFATE 325 MG TAB PO SCH (10:14)
[2020-04-02] MEDS: LIDOCAINE 5% 1 PATCH TD SCH (10:15)
[2020-04-02] MEDS: gemfibroziL 600 MG TAB PO SCH (10:16)
[2020-04-02] MEDS: CEROVITE ADV FORMULA TAB PO SCH (10:16)
[2020-04-02] MEDS: ASCORBIC ACID 500 MG TAB PO SCH (10:17)
[2020-04-02] MEDS: OMEGA-3 (PURIFIED FISH OIL) 1 GM CAP PO SCH (10:17)
--- NOTE | 2020-04-02 11:19 | Pharmacy Report ---
Pharmacy Glycemic Short Note 2 - Date of Service April 02, 2020 - Glycemic Short BSG Results (Last 24 hours): 04/01/20 04/01/20 04/01/20 11:45 17:20 20:52 Glucose POC Glucose 185 H 73 128 H 04/02/20 04/02/20 05:45 08:27 Glucose 94 POC Glucose 131 H OUTPATIENT ANTIDIABETIC REGIMEN: * 70/30 60 units BID * A1c 6.6% 10/22/19 ASSESSMENT: 04/02/20: * BSGs continue to be well controlled with current regimen * 139, 185, 73, and 128 mg/dL yesterday * Will plan to continue to continue current regimen * Lunch BSG of 298 mg/dL - per RN patient had applesauce late morning (uncovered) - won't overreact to this BSG 03/29/20: * BSGs have been well-controlled on current regimen. * Pt has had several BSGs below goal range, so Novolog parameters loosened slightly this afternoon. 03/28 * BSGs well controlled the 2nd half of the day yesterday. * Fasting BSG was missed this AM by nurses aid. NPH was held as a result since we did not have BSG prior to admin. Will reassess NPH needs when pre-lunch BSG is available. Patient had received a larger NPH dose w/ dinner yesterday. * Given typically requires > 120 units of insulin per day however only received 72 units yesterday. She may be hyperglycemic today if now deficient in basal insulin. Plan to based insulin needs upon outpt regimen of ~120 units per day going forward. Tomorrow's regimen will provide 50% of this total daily dose as NPH w/ 2/3 given w/ breakfast + 1/3 given w/ dinner 03/27 * Patient received total of 136 units of insulin - of which 90 were NPH * Fasting BSG low at 53 mg/dL - patient received two OJ's and on recheck 84 mg/dL * Insulin needs slowly decreasing each day, likely too much basal yesterday and PO intake less * Held AM NPH - reduced ~40% and will dose with lunch time check * Plan to loosen CF/CR with lunch PLAN FOR INPATIENT GLYCEMIC CONTROL: * Basal insulin - continue * NPH 40 units SQ qAM, 20 units SQ qPM * Bolus insulin - continue * NovoLog per scale ACHS or Q6hrs while NPO * Correction Factor: 15 mg/dL/unit * Nutritional / Prandial insulin per carb ratio of 1 unit per 5 grams CHO consumed PLAN FOR DISCHARGE: * See note from 03/31/20
[2020-04-02] MEDS: CEFEPIME 2,000 MG in SYRINGE 0 ML IV SCH (17:27)
[2020-04-02] MEDS: GABAPENTIN 100 MG CAP PO SCH (19:47)
[2020-04-03] MEDS: HEPARIN SOD 5,000 UNIT/0.5 ML VIAL SQ SCH (06:12)
[2020-04-03] MEDS: LEVOTHYROXINE SODIUM 75 MCG TABLET PO SCH (06:13)
[2020-04-03] MEDS: ACETAMINOPHEN 500 MG TAB PO SCH (06:13)
[2020-04-03] MEDS: INSULIN ASPART 100 UNITS/ML 3 ML PEN SC SCH ×2 (08:46→12:59)
[2020-04-03] MEDS: INSULIN HUMAN NPH SC SCH (08:50)
[2020-04-03 09:26] LABS: Hematocrit (blood only) 28.8 % (37-47); Mean Corpuscular Hemoglobin 29.5 pg (25-34); Mean Corpuscular Hgb Conc 31.3 g/dL (32-36); Mean Corpuscular Volume 94.4 fL (80-100); Mean Platelet Volume 9.6 fL (7.4-10.4); Platelet Count 312 K/uL (130-400); RDW Coefficient of Variation 15.8 % (11.5-14.5); RDW Standard Deviation 54.1 fL (36.4-46.3); Red Blood Count 3.05 M/uL (4.2-5.4); White Blood Count 11.11 K/uL (4.8-10.8)
[2020-04-03] MEDS: OMEGA-3 (PURIFIED FISH OIL) 1 GM CAP PO SCH (09:39)
[2020-04-03] MEDS: ASCORBIC ACID 500 MG TAB PO SCH (09:40)
[2020-04-03] MEDS: ASPIRIN 81 MG ECTAB PO SCH (09:40)
[2020-04-03] MEDS: TORSEMIDE 20 MG TAB PO SCH (09:40)
[2020-04-03] MEDS: CEROVITE ADV FORMULA TAB PO SCH (09:40)
[2020-04-03] MEDS: gemfibroziL 600 MG TAB PO SCH (09:41)
[2020-04-03] MEDS: POLYETHYLENE (MIRALAX) 17 GM PACK PO SCH (09:41)
[2020-04-03] MEDS: FERROUS SULFATE 325 MG TAB PO SCH (09:41)
[2020-04-03] MEDS: LIDOCAINE 5% 1 PATCH TD SCH (09:42)
[2020-04-03 09:51] LABS: BUN Creatinine Ratio 27.9 (10-20); C Reactive Protein 12.6 mg/dl (0-0.29); Calcium 9.8 mg/dl (8.5-10.1); Creatinine Clr Calc Pharmacy 23.3 ml/min; Est GFR (African American) 25.8; Est GFR (Non-African American) 22.2; Potassium 4.4 mmol/L (3.5-5.1)
[2020-04-03] MEDS: CEFEPIME 2,000 MG in SYRINGE 0 ML IV SCH (11:35)
[2020-04-03] MEDS: allopurinoL 100 MG TAB PO SCH (11:35)
--- NOTE | 2020-04-03 11:51 | Discharge Summary ---
Date of Service April 03, 2020 Admission HPI Per Admitting Provider Patient is an 84-year-old female with a past medical history of atrial fibrillation, history of breast cancer, chronic venous insufficiency with chronic venous insufficiency ulcers, and bilateral generalized edema, h yperlipidemia, hypothyroidism, peripheral neuropathy, retinal detachment, anemia, chronic kidney disease stage III, diabetes mellitus, hypertension, who presents this evening with bilateral lower extremity pain left worse than right that started earlier today. Patient reports a longstanding history of chronic venous insufficiency, with repeated bouts of cellulitis in her bilateral lower extremities. She reports that currently she feels as she has in the past when she has cellulitis. She states that she was in her normal state of health prior to today, eating, sleeping, voiding, stooling appropriately. She denies any constitutional symptoms including fever, chills, nausea, vomiting, chest pressure, chest pain, shortness of breath, abdominal pain, and weight loss. She reports approximately noon time today she began experiencing pain in the bilateral lower extremities left greater than right with some increased weeping. Nothing made the pain better, movement made the pain worse, this continued to increase throughout the day, eventually prompting her to present to the emergency department as she was concerned she had cellulitis. In the emergency department initially she was found to have a fever which subsequently resolved, given her presentation imaging was obtained bilateral lower extremity Doppler ultrasound was negative for DVT however demonstrated reactive lymph nodes. CBC was within normal limits, there was not a white count, however there was a neutrophil predominance, ESR was 64, INR 1.2, PT 12.4, Chem-7 demonstrated a creatinine of 1.82 and hypoglycemia with a glucose of 65 this was subsequently corrected to 151 otherwise within normal limits. CRP was 9.83, lactate was negative, COVID-19 negative, and a UA is pending. Of note the patient does not have a history of MRSA however does have a history of MSSA, Most recent negative screen was September 2018. Currently she describes her pain is 10 out of 10. given her initial presentation of a fever, tachycardia, multiple medical comorbidities, and concerning cellulitis the primary team was called for admission. Primary Care Provider: Narinder Caldwell MD Admission Exam Per Admitting Provider General: Obese female lying in bed in no acute distress HEENT: Normocephalic atraumatic Neck: Normal to visual inspection, trachea midline Cardiac: Regular rate and rhythm, I did not appreciate any significant murmurs rubs or gallops, normal S1, normal S2, significant bilateral 4+ pedal edema, Respiratory: Clear to auscultation bilaterally with symmetrical chest expansion, no wheezes, no rales, no rhonchi, no increased work of breathing GI: Distended, soft, nontender in all 4 quadrants, bowel sounds present MSK: Moves all extremities Skin: Bilateral lower extremities covered in venous stasis ulcers Neuro: Alert and oriented x4 Psych: Calm and cooperative with the interview Principal Diagnosis Septic arthritis left knee Discharge Exam Temp Pulse Resp BP Pulse Ox 36.4 C L 77 18 114/64 97 04/03/20 07:49 04/03/20 07:49 04/03/20 07:49 04/03/20 07:49 04/03/20 07:49 Patient is afebrile. Vital signs stable. +1 BLE edema on exam. Cellulitis appears resolved. Constitutional + obese; no acute distress ENMT Ears: no hearing impairment Neck trachea midline, no thyromegaly Respiratory normal respiratory effort, lungs clear to auscultation Cardiovascular RRR, no murmur, no edema Gastrointestinal (Abdomen) Inspection/Auscultation: normal bowel sounds Percussion/Palpation: abdomen soft; abdomen nontender Psychiatric A+Ox3, euthymic affect Lymphatic no cervical or axillary lymphadenopathy Discharge Data Allergies Allergy/AdvReac Type Severity Reaction Status Date / Time Sulfa (Sulfonamide Allergy Intermediate BLISTERS Verified 03/13/20 23:56 Antibiotics) Consultations 03/14/20 01:47 ED Decision to Admit Stat 03/14/20 05:03 Consult Case Management - Discharge Planning Routine 03/15/20 10:26 Consult Orthopedic Surgery Routine 03/29/20 11:49 Consult Orthopedic Surgery Routine 03/29/20 15:54 Consult Infectious Diseases Routine 04/03/20 10:34 Consult [facility] acquisition professional Routine Procedures Performed Operation Date: 03/16/20 10:30 Actual Procedures p Left Knee Arthroscopic Incision and Drainage, extensive debridement, partial synovectomy, removal calcium deposits, placement of drain(Left) - Herve Murguia MD Ordered Studies 03/13/20 22:35 US venous doppler LE LT Urgent 03/15/20 10:32 MR femur LT wo con Urgent 03/23/20 12:22 MR femur LT wo con Routine Hospital Course (1) Septic arthritis of knee: * Septic knee growing pseudomonas sensitive to Cipro - continue 500 mg daily for [address] Murguia * s/p LEFT KNEE I&D washout on 03/[address] Murguia * Pain control with oxycodone, tylenol * Blood cultures NGTD * MRI with edema of hamstrings, likely related to edematous state (torsemide was resumed) * Lyme negative, peripheral smear negative for evidence anaplasmosis. ck 24 * WBCs continue to be slightly elevated at 11.11, last febrile briefly 03/28 despite round the clock tylenol administration - no other s/s of infection, procal wnl, CRP is decreasing; 12.60 today. * --> Given 1.2mg, 0.6mg Colchicine 03/23 * --> Added allopurinol QOD for renal function -- continue at d/c * Persistent leukocytosis and knee pain though some knee pain is chronic - Consulted infectious disease - recommended changing to cefepime from Cipro given intermediate susceptibility of Levaquin. Cefepime should be increased to 2 gm iv [id number] if CrCl improves to 30-60 (currently 28). CrCl remains at 23.3 today. Will be discharged home on once daily dosing. Will need 4-6 weeks of IV abx therapy from 03/31/20. - Check weekly CBC and BMP and biweekly CRP while on cefepime - May remove picc after completion of iv abx therapy - May follow up w/ ID outpatient clinic via telephonic encounter or televideo visit w/in 3-5 weeks * Ortho saw patient 03/30 as well and felt knee looked like it was improving * PICC placed * Alk phos has been elevated - may be secondary to knee but will need followed outpatient -- additional labs pending for myelodysplastic disease. Will arrange for f/u regarding these and hypercalcemia at discharge with heme/onc. (2) Knee effusion, left: * See above * Culture with pseudomonas * Fluid analysis with evidence of gout -- colchicine as above, allopurinol (3) Cellulitis: * bilateral lower extremities- appears resolved. * Cellulitis secondary to chronic venous stasis ulcers in the setting of chronic venous insufficiency * Per the patient she has a longstanding history of chronic venous insufficiency with chronic venous stasis ulcers. * Most recent echo in September 2018 demonstrated a left ventricular ejection fraction of 60 to 65% with normal RVSP, indicating the lower extremity swelling is most likely from venous insufficiency * Initially on IV daptomycin but switched to doxy for continued MRSA coverage - now completed * BCX ngtd * Wound RN consulted * U/S NEGATIVE for DVT LLE (4) Left leg pain: * Xray 03/15 for increasing pain from knee to hip - shows possible stress fracture and knee effusion, follow up MRI shows fracture to be old * Pain management as above * Orthopedics consulted as above * Gout as above (5) Diabetes mellitus: * Has been having periodic issues with hyperglycemia, preop required insulin gtt, now improved. * A1c 6.8 * Holding home meds while inpatient * Pharmacy Glycemic consult (6) Peripheral neuropathy: * PT OT ordered * Fall precautions * Continue home gabapentin * B12 666 * Patient would benefit from diabetic footwear. Can be ordered as an outpatient by her PCP. (7) Hypothyroidism: * Last TSH 03/13/20 1.8 * Continue levothyroxine 75 mcg p.o. every morning (8) Hyperlipidemia: * Last lipid panel October 2019 * Continue gemfibrozil (9) Generalized osteoarthritis of multiple sites: * PT OT * Pain control as above (10) Edema: * continue torsemide (11) Afib: * Patient had 1 episode of documented atrial fibrillation during an admission September 2018, she was very acutely ill at that time. She spontaneously converted with 1 dose of IV Lopressor and has had no further events after that. She was on metoprolol 25 mg daily and was not started on anticoagulation and maintain normal sinus rhythm. Subsequently Toprol was stopped and she has since had no episodes of atrial fibrillation. * Monitor for development of A. fib -- irregular rhythm today - EKG with bigeminy, QT prolonged (may improve now off of Cipro) (12) Anemia: * of chronic disease. Stable, baseline appears to be around 8.5 - 11 * See above-- given epogen. Iron low normal and started on oral replacement -- continue at d/c * h/h low but stable -- iron stores checked with iron 38 and was provided epogen 4,000 on 03/[address] on daily iron replacement - (13) Chronic kidney disease, stage III (moderate): * Patient follows with Dr. Bhatt for chronic kidney disease. Baseline creatinine appears to be 1.5 - 1.8. Noted to be 2.02 this morning with a BUN of 56. Patient admits to not drinking enough over the past 24 hrs. * Avoid nephrotoxic med * Iron labs with iron 38 -- given Epogen 4,[address] Jacobo. Repeat cbc with improvement. H&H of 9.0 and 28.8 today. * Nephrology consulted -- appreciate assistance (14) Pressure ulcer: * Stage 3 Pressure ulcer of left & right medial buttock resolved. * Wound care nurse consulted * Turn and reposition frequently * Recommend barrier cream such as Calmoseptine cream be applied daily. (15) Hypoxia: * Resolved * Overnight pulse ox without desaturation * CXR with L basilar atelectasis/scarring * 97% on RA this morning. * No further desat events since 03/19 * Continued encouragement for Incentive Spirometer (16) Hypercalcemia: * IVF with diuretic for hypercalcemia and given calcitonin x 1 on 03/24 * Calcium has normalized at 9.8 today. - vitamin D level and PTH low normal * Globulin marcial noted * Patient may need further workup for possible malignancy -- will need arranged at d/c (17) DVT prophylaxis: * heparin subq Dispo: Was to go to [facility] at discharge but now they are not able to take Ms. Mike at this time due to possible positive COVID. Patient now wants to go home with home health. She is a fall risk. She reports she has a wheelchair, walker, and bedside commode at home. She has a chair lift for the stairs going to her basement, and reports no other steps in her home. She feels her will be able to assist her. Script for cefepime and labs given to Case management. Patient will be discharged today to meet with home health for first home dose of cefepime on Saturday. Plan for PT/OT home eval by home health as well as she would benefit from these services. Total Time Total Time Spent Total Time Spent (In Minutes): 60 Total Time Includes: Examination of the Patient, Discharge Planning, Medication Reconciliation and Communication With Other Providers Discharge Plan Discharge Items Patient Disposition: Home - Home Health Services Reason For Visit: CELLULITIS Discharge Diagnosis: Septic Arthritis left knee Activity: Per Instructions section Lifting: No more than 5 pounds Bathing: Keep incision dry Sexual Activity: Wait until after follow-up appointment Exercise/Sports: Wait until after follow-up appointment Driving/Machine Use: No driving until cleared by orthopedics. Weightbearing: Full weightbearing Non-emergency contact: Primary Care Provider and Surgeon Call non-emergency contact if: you have any medication questions, your symptoms worsen, your pain is worsening, you have a fever, your wound has increased redness, your wound has increased drainage and your wound pain has increased Follow-up/Referrals: Pro,Narinder Macedo MD [Primary Care Provider] - Diet: Carb Consistent or DM2 Addtl Attending Provider Instructions: ACTIVITY RECOMMENDATIONS: * You may walk on the leg with or without crutches/walker as comfort permits. * Bending of the knee should start at once, gentle range of motion as tolerated. SPECIAL CARE INSTRUCTIONS: * You may cleanse the skin adjacent to the small wounds with soap and water at the time of the first dressing change. * The application of an ice bag to the front and sides of the knee will decrease swelling and discomfort for the first 48 hours. * The small incisions may be sore and develop bruising. This bruising does not require any special care. SPECIAL PRECAUTIONS: * If you experience unusual pain unrelieved by prescriptions, temperature elevation (100 degrees F. or above) or progressive swelling or bleeding, you should contact our office at for further evaluation. * You may have been prescribed pain medication. If you experience nausea and/or fine skin rash, discontinue this medication and contact our office at for an alternate medication. DRESSING: * Dressing should be comfortable and absorb any leakage of fluid and/or blood. * The dressing may become moist or bloodstained. * Continue to use zeke wrap for gentle compression of comfort. * Dressing may be removed 48 hours after surgery and bandaids placed over the small surgical incisions. If can be removed sooner if it becomes very soiled or loose. * Bandaids may be used over next several days as needed and can be discontinued when there is not further drainage from the wounds. FOLLOW UP VISIT: If appointment is not already scheduled: Please call [facility] to make a follow-up appointment for your surgery at . Will need follow-up with Dr. Murguia in 10 to 14 days. [phone]. Pending Studies at Discharge: No Stand-Alone Forms: [facility] Medications and DC Order Prescriptions: New cefepime 2 gram Recon Soln 1 dose IV DAILY 30 Days RF: 0 ferrous sulfate 325 mg (65 mg iron) Tablet,Delayed Release (Dr/Ec) 325 mg PO QAM 30 Days Qty: 30 RF: 0 torsemide 20 mg Tablet 40 mg PO BID 30 Days Qty: 120 RF: 0 allopurinol 100 mg Tablet 100 mg PO Q2D 30 Days Qty: 15 RF: 0 Continued gabapentin 100 mg capsule 200 mg PO HS Qty: 180 RF: 3 gemfibrozil [Lopid] 600 mg tablet 600 mg PO QAM Qty: 30 RF: 5 insulin NPH and regular human 100 unit/mL (70-30) suspension See Rx Instructions SQ BID RF: 0 cholecalciferol (vitamin D3) [Vitamin D3] 2,000 unit capsule 2,000 unit PO 3XWK RF: 0 Multi-Vitamin HP/Minerals capsule 1 cap PO QAM RF: 0 omega 4-[id number]-wzk-fish oil [Fish Oil] 1,000 mg (120 mg-180 mg) capsule 1 cap PO QAM RF: 0 aspirin [Aspirin Low Dose] 81 mg tablet,delayed release (DR/EC) 81 mg PO QAM RF: 0 ascorbic acid (vitamin C) [Vitamin C] 500 mg Tablet 500 mg PO DAILY RF: 0 levothyroxine 75 mcg tablet 75 mcg PO QAM RF: 0 Discontinued torsemide 20 mg tablet 40 mg PO BID Qty: 360 RF: 3 Discharge Orders: Discharge Order (Routine); Ordered 04/03/20 Ordered By: Nati Skinner/Other Patient Handouts: Managing Type 2 Diabetes Admission Data Admit Date/Time: 03/15/20 08:51 Attending Provider: Chaparro Sky Admit Provider: Jonathan Garcia I. Primary Care Provider: Narinder Caldwell Other Providers: Tapan Lewis ; Jostin Mayfield ; [facility] ; Terrie Lopez [facility] ; Boaz Ruiz ; Bret Mari ; Manuel Garcia I. ; Ketan Cruz II ; [place] ; Gilles Gagnon ; Gates,Mario J. Coding Level of Care Code D/C Day Management >30 mins Diagnoses Septic arthritis of knee M00.9 Knee effusion, left M25.462 Cellulitis L03.90 Left leg pain M79.605 Diabetes mellitus E11.9 Peripheral neuropathy G62.9 Hypothyroidism E03.9 Hyperlipidemia E78.5 Generalized osteoarthritis of multiple sites M15.9 Edema R60.9 Afib I48.91 Atrial fibrillation type: unspecified Anemia D64.9 Chronic kidney disease, stage III (moderate) N18.30 Pressure ulcer L89.90 Hypoxia R09.02 Hypercalcemia E83.52 DVT prophylaxis Z29.9
[2020-04-03] MEDS ORDERED: INSULIN ASPART 100 UNITS/ML 3 ML PEN SC SCH (16:30)
[2020-04-04] MEDS ORDERED: INSULIN ASPART 100 UNITS/ML 3 ML PEN SC SCH (07:30)
[2020-04-05 08:32] LABS: Creatinine Ur 42 mg/dL (20-275); Protein, Urine Random 12 mg/dL (5-24); Ur Protein/Creat Ratio mg/g 286 mg/g creat (21-161); Urine Abnormal Protein Band 1 DNR mg/dL (NONE DETECTED); Urine Abnormal Protein Band 2 DNR mg/dL (NONE DETECTED); Urine Abnormal Protein Band 3 DNR mg/dL (NONE DETECTED); Urine Protein/Creatinine Ratio 0.286 (0.021-0.161)
[2020-04-05 10:57] LABS: Albumin 2.3 g/dL (3.8-4.8); Alpha 1 Globulin 0.6 g/dL (0.2-0.3); Alpha 2 Globulin 1.3 g/dL (0.5-0.9); Beta-1-Globulin 0.3 g/dL (0.4-0.6); Beta-2-Globulin 0.5 g/dL (0.2-0.5); Free Kappa 68.7 mg/L (3.3-19.4); Free Kappa/Lambda Ratio 1.17 (0.26-1.65); Free Lambda 58.9 mg/L (5.7-26.3); Gamma Globulin 1.1 g/dL (0.8-1.7); Monoclonal Protein Band 1 DNR g/dL (NONE DETECTED); Monoclonal Protein Band 2 DNR g/dL (NONE DETECTED); Monoclonal Protein Band 3 DNR g/dL (NONE DETECTED); Total Protein 6.1 g/dL (6.1-8.1)
== END 2020-04-03 14:33 | disposition home health service (06) | DRG 485 ==
LOC: ED 22:22 → 3N 22:22 → SUATTDRO 03-14 03:04 → 3N 03-14 04:00 → SUATTDRO 03-15 08:51

== ENCOUNTER 2020-04-28 14:51 | Inpatient (IN) ==
--- NOTE | 2020-04-28 16:48 | Emergency Department Note ---
Impression & Plan LISA (acute kidney injury), Anemia, Bilateral edema of lower extremity ED Provider Note NAME: WILLA SLAUGHTER AGE: 84 SEX: F : 1935 ARRIVES VIA: Walk-In INFORMANT: Patient ED PROVIDER(S): Cam Rogers DO CHIEF COMPLAINT: Abnormal blood work HPI: Patient is an 84-year-old female with a past medical history of CKD, lymphedema, hyperlipidemia, hypothyroidism and A. fib that presents to the ER for an abnormal creatinine. She was recently admitted in March and has been given IV antibiotics which include cefepime for infected/septic joint knee. She has been having blood work done as an outpatient for her creatinine. Her creatinine trended up last week from two to three with baseline being around 2.5 previously. She had blood work done again today and was up around 4. She admits to swelling in her legs which is fairly normal for her but may be a little worse. She denies any headache or change in vision. No chest pain, shortness of breath, nausea, vomiting or diarrhea. No fevers. No other exacerbating or remitting factors. ROS: See above HPI for pertinent positives & negatives. A total of 10 systems reviewed and were otherwise negative. PAST MEDICAL HISTORY:See Below PAST SURGICAL HISTORY:See Below FAMILY HISTORY:See Below SOCIAL HISTORY:See Below HOME MEDICATIONS:See Below ALLERGIES:See Below VITALS:See Below PHYSICAL EXAMINATION: GENERAL: Sitting up in bed, alert, well appearing, well nourished, no distress, non-toxic EYE EXAM: normal conjunctiva. OROPHARYNX: no exudate, no erythema, lips, buccal mucosa, and tongue normal and mucous membranes are moist NECK: supple, no nuchal rigidity, no adenopathy, non-tender LUNGS: Clear to auscultation. Normal chest wall mechanics HEART: no murmurs, S1 normal and S2 normal ABDOMEN: abdomen soft, non-tender, normo-active bowel sounds, no masses, no rebound or guarding. UPPER EXTREMITIES: upper extremities are grossly normal. LOWER EXTREMITIES: Pitting edema to bilateral lower extremities with mild erythema NEURO EXAM: Normal sensorium, cranial nerves II-XII grossly intact, normal speech, no gross weakness of arms, no gross weakness of legs. MEDICAL DECISION MAKING: Patient is an 84-year-old female referred in by nephrology for acute kidney in [facility]. IV was established blood work was obtained. Labs show no significant leukocytosis and chronic anemia at 8.4. Platelets mildly low at 126. BMP with a creatinine of 4.5 with her previous being 3.9 last week up from a baseline of what appears to be 2.5. LFTs bilirubin were unremarkable. Troponin was negative. Lipase unremarkable. Covid was negative. She is on cefepime for septic joint. Uncertain the true etiology of this LISA at this time. Ordered renal ultrasound which was unremarkable. Discussed with hospitalist for further evaluation. Triage Nursing notes reviewed. Limited review of prior medical records performed Vital Signs: reviewed and remarkable for no significant abnormalities Differential diagnosis: Infection, dehydration, metabolic abnormality, hypo/hyperglycemia, electrolyte disturbance, anemia, hypoxia, cardiac sources, intracerebral event, toxicologic, neurologic, as well as other pathologies. ER treatment provided: See below Diagnostics interpreted by me: ECG: none Cardiac Monitoring: An order was placed for continuous cardiac monitoring. The monitor shows a rate of 90 with sinus rhythm. Laboratory studies: As stated above and show below. Imaging studies: Ultrasound of the kidneys were unremarkable Consultation(s): Discussed with hospitalist for further evaluation Procedures: none Critical Care: None Past Med/Surg History Medical History Acute kidney injury (11/2018) Afib Cancer Cellulitis of left leg Cellulitis of right leg Chronic back pain Congenital dislocation of hip Degenerative disc disease Diabetes mellitus DNR (do not resuscitate) DVT prophylaxis Fever Hypoxia Obesity Osteoarthritis Pancreatitis Peripheral neuropathy Pressure ulcer Pressure ulcer of right heel, stage 3 Stage III pressure ulcer of right buttock Surgical History History of cataract surgery History of cholecystectomy History of detached retina repair History of hip surgery History of mastectomy History of thyroidectomy Hx of tonsillectomy Status post debridement Family History Unknown Cancer Father Bone cancer Mother Diabetes Daughter Diabetes Breast cancer Son Diabetes Sister Diabetes Grandmother (Paternal) Breast cancer Denies family history of Ovarian cancer Prostate cancer Myocardial infarction Colorectal cancer Social History Smoking Status: Never smoker Second Hand Exposure: No; Hx Alcohol Use: No Hx Substance Use: No Preferred Language: Armenian Communication Ability: Effective Visual Impairment: No Limitations 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: No Beliefs That Will Affect Care: None marital status: Current Living Situation: Spouse Feels Safe at Home: Yes Seatbelt Use: always Assistive Devices: Walker Allergies Allergies Allergy/AdvReac Type Severity Reaction Status Date / Time Sulfa (Sulfonamide Allergy Intermediate BLISTERS Verified 04/28/20 16:45 Antibiotics) Home Meds Home Medications Medication Instructions Recorded Confirmed aspirin 81 mg tablet,delayed 81 mg PO QAM 11/09/18 04/28/20 release cholecalciferol (vitamin D3) 50 2,000 unit PO 3XWK 11/09/18 04/28/20 mcg (2,000 unit) capsule multivitamin,tx-minerals 1 cap PO QAM 11/09/18 04/28/20 omega 7-qyw-tvv-fish oil 1,000 mg 1 cap PO QAM cap 11/09/18 04/28/20 (120 mg-180 mg) capsule ascorbic acid (vitamin C) [Vitamin 500 mg PO DAILY 11/18/18 04/28/20 C] levothyroxine 75 mcg PO QAM 05/20/19 04/28/20 insulin human U-100 NPH-regulr See Rx Instructions SQ BID ml 01/18/20 04/28/20 70-30 mix 100 unit/mL subcutaneous susp torsemide 40 mg PO UD 04/28/20 04/28/20 Previous Rx's Medication Instructions Recorded gabapentin 100 mg capsule 200 mg PO HS #180 cap 06/01/19 gemfibrozil 600 mg tablet 600 mg PO QAM #30 tab 02/01/20 allopurinol 100 mg PO Q2D 30 Days #15 tab 04/03/20 cefepime 1 dose IV DAILY 30 Days ea 04/03/20 ferrous sulfate 325 mg PO QAM 30 Days #30 tab 04/03/20 Results & Data (ED) Vital Signs Vital Signs - 24 hr 04/28/20 14:58 04/28/20 16:51 04/28/20 16:52 Temperature 36.4 C L Temperature Source Oral Pulse Rate 90 92 H Respiratory Rate 18 13 Blood Pressure 135/59 L Blood Pressure Mean 84 Blood Pressure Position Sitting Pulse Oximetry 98 97 Oxygen Delivery Method Room Air Room Air Sepsis Recent Fever Within 48 Hours No Sepsis New/Unexplained Change in Mental Status N/A Sepsis Action Taken by Nursing No Action Required 04/28/20 17:00 04/28/20 17:08 04/28/20 17:09 Temperature Temperature Source Pulse Rate 88 89 87 Respiratory Rate 16 13 14 Blood Pressure 137/86 Blood Pressure Mean 103 Blood Pressure Position Pulse Oximetry Oxygen Delivery Method Sepsis Recent Fever Within 48 Hours Sepsis New/Unexplained Change in Mental Status Sepsis Action Taken by Nursing 04/28/20 17:54 04/28/20 18:00 04/28/20 18:17 Temperature Temperature Source Pulse Rate 95 H 90 92 H Respiratory Rate 12 16 17 Blood Pressure 151/74 H Blood Pressure Mean 99 Blood Pressure Position Pulse Oximetry Oxygen Delivery Method Sepsis Recent Fever Within 48 Hours Sepsis New/Unexplained Change in Mental Status Sepsis Action Taken by Nursing 04/28/20 18:30 04/28/20 19:00 Temperature Temperature Source Pulse Rate 87 96 H Respiratory Rate 15 23 Blood Pressure 140/73 160/81 H Blood Pressure Mean 95 107 Blood Pressure Position Pulse Oximetry Oxygen Delivery Method Sepsis Recent Fever Within 48 Hours Sepsis New/Unexplained Change in Mental Status Sepsis Action Taken by Nursing Laboratory Data Result diagrams: 04/28/20 16:45 04/28/20 16:45 Lab Results 04/28/20 04/28/20 04/28/20 Range/Units 16:45 16:45 16:45 WBC 6.44 (4.8-10.8) K/uL RBC 2.89 L (4.2-5.4) M/uL Hgb 8.4 L (12.0-16.0) g/dL Hct 26.6 L (37-47) % MCV 92.0 (80-100) fL MCH 29.1 (25-34) pg MCHC 31.6 L (32-36) g/dL RDW Std Deviation 54.9 H (36.4-46.3) fL RDW Coeff of Brian 16.4 H (11.5-14.5) % Plt Count 126 L (130-400) K/uL MPV 10.8 H (7.4-10.4) fL Immature Gran % (Auto) 0.9 % Neut % (Auto) 55.7 % Lymph % (Auto) 29.0 % Gilchrist % (Auto) 5.4 % Eos % (Auto) 8.7 % Baso % (Auto) 0.3 % Neut # (Auto) 3.58 (1.4-6.5) K/uL Lymph # (Auto) 1.87 (1.2-3.4) K/uL Gilchrist # (Auto) 0.35 (0.11-0.59) K/uL Eos # (Auto) 0.56 H (0-0.5) K/uL Baso # (Auto) 0.02 (0-0.2) K/uL Immature Gran # (Auto) 0.06 H (0.00-0.02) K/uL Sodium 138 (136-145) mmol/L Potassium 4.3 (3.5-5.1) mmol/L Chloride 102 (98-107) mmol/L Carbon Dioxide 27 (21-32) mmol/L Anion Gap 9.0 (3-11) BUN 84 H (7-18) mg/dl Creatinine 4.51 H* (0.6-1.2) mg/dl Est Cr Clr Drug Dosing Not Reportable Est GFR ( Amer) 9.8 Est GFR (Non-Af Amer) 8.4 BUN/Creatinine Ratio 18.6 (10-20) Glucose 146 H (70-99) mg/dl Calcium 9.8 (8.5-10.1) mg/dl Total Bilirubin 0.3 (0.2-1) mg/dl AST 13 L (15-37) U/L ALT 9 L (12-78) U/L Alkaline Phosphatase 70 (45-117) U/L Troponin I < 0.015 (0-0.045) ng/ml C-Reactive Protein 5.02 H (0-0.29) mg/dl NT-Pro-B Natriuret Pep 582 (0-1800) pg/ml Total Protein 7.0 (6.4-8.2) gm/dl Albumin 2.3 L (3.4-5.0) gm/dl Globulin 4.7 H (2.5-4.0) gm/dl Albumin/Globulin Ratio 0.5 L (0.9-2) Lipase 172 (73-393) U/L COVID-19 Eval [facility] SARS-CoV-2, RNA, NAAT (NEGATIVE) 04/28/20 Range/Units 16:45 WBC (4.8-10.8) K/uL RBC (4.2-5.4) M/uL Hgb (12.0-16.0) g/dL Hct (37-47) % MCV (80-100) fL MCH (25-34) pg MCHC (32-36) g/dL RDW Std Deviation (36.4-46.3) fL RDW Coeff of Brian (11.5-14.5) % Plt Count (130-400) K/uL MPV (7.4-10.4) fL Immature Gran % (Auto) % Neut % (Auto) % Lymph % (Auto) % Gilchrist % (Auto) % Eos % (Auto) % Baso % (Auto) % Neut # (Auto) (1.4-6.5) K/uL Lymph # (Auto) (1.2-3.4) K/uL Gilchrist # (Auto) (0.11-0.59) K/uL Eos # (Auto) (0-0.5) K/uL Baso # (Auto) (0-0.2) K/uL Immature Gran # (Auto) (0.00-0.02) K/uL Sodium (136-145) mmol/L Potassium (3.5-5.1) mmol/L Chloride (98-107) mmol/L Carbon Dioxide (21-32) mmol/L Anion Gap (3-11) BUN (7-18) mg/dl Creatinine (0.6-1.2) mg/dl Est Cr Clr Drug Dosing Est GFR ( Amer) Est GFR (Non-Af Amer) BUN/Creatinine Ratio (10-20) Glucose (70-99) mg/dl Calcium (8.5-10.1) mg/dl Total Bilirubin (0.2-1) mg/dl AST (15-37) U/L ALT (12-78) U/L Alkaline Phosphatase (45-117) U/L Troponin I (0-0.045) ng/ml C-Reactive Protein (0-0.29) mg/dl NT-Pro-B Natriuret Pep (0-1800) pg/ml Total Protein (6.4-8.2) gm/dl Albumin (3.4-5.0) gm/dl Globulin (2.5-4.0) gm/dl Albumin/Globulin Ratio (0.9-2) Lipase (73-393) U/L COVID-19 Eval Order SARS-CoV-2, RNA, NAAT NEGATIVE (NEGATIVE) Discharge Plan Visit Data Chief Complaint: Abnormal Labs/Diagnostic Testing Stated Complaint: Abnormal labs ED Provider: Cam Rogers Discharge Problem: LISA (acute kidney injury), Anemia, Bilateral edema of lower extremity Forms Stand Alone Forms: My [facility] Prescriptions Prescriptions: No Action gabapentin 100 mg capsule 200 mg PO HS Qty: 180 RF: 3 gemfibrozil [Lopid] 600 mg tablet 600 mg PO QAM Qty: 30 RF: 5 insulin NPH and regular human 100 unit/mL (70-30) suspension See Rx Instructions SQ BID RF: 0 cholecalciferol (vitamin D3) [Vitamin D3] 2,000 unit capsule 2,000 unit PO 3XWK RF: 0 Multi-Vitamin HP/Minerals capsule 1 cap PO QAM RF: 0 omega 3-zvu-hen-fish oil [Fish Oil] 1,000 mg (120 mg-180 mg) capsule 1 cap PO QAM RF: 0 aspirin [Aspirin Low Dose] 81 mg tablet,delayed release (DR/EC) 81 mg PO QAM RF: 0 ascorbic acid (vitamin C) [Vitamin C] 500 mg Tablet 500 mg PO DAILY RF: 0 levothyroxine 75 mcg tablet 75 mcg PO QAM RF: 0 cefepime 2 gram Recon Soln 1 dose IV DAILY 30 Days RF: 0 ferrous sulfate 325 mg (65 mg iron) Tablet,Delayed Release (Dr/Ec) 325 mg PO QAM 30 Days Qty: 30 RF: 0 allopurinol 100 mg Tablet 100 mg PO Q2D 30 Days Qty: 15 RF: 0 torsemide 20 mg tablet 40 mg PO UD RF: 0 Referrals Referrals: Narinder Caldwell MD [Primary Care Provider] - Discharge Problem: Anemia Qualifiers: Anemia type: unspecified type Qualified Code(s): D64.9 - Anemia, unspecified
[2020-04-28 16:58] LABS: Basophils # (auto) 0.02 K/uL (0-0.2); Basophils % (auto) 0.3 %; Eosinophils # (auto) 0.56 K/uL (0-0.5); Eosinophils % (auto) 8.7 %; Hematocrit (blood only) 26.6 % (37-47); Hemoglobin 8.4 g/dL (12.0-16.0); Immature Granulocytes # (auto) 0.06 K/uL (0.00-0.02); Immature Granulocytes % (auto) 0.9 %; Lymphocytes # (auto) 1.87 K/uL (1.2-3.4); Mean Corpuscular Hemoglobin 29.1 pg (25-34); Mean Corpuscular Hgb Conc 31.6 g/dL (32-36); Mean Platelet Volume 10.8 fL (7.4-10.4); Monocytes # (auto) 0.35 K/uL (0.11-0.59); Monocytes % (auto) 5.4 %; Neutrophils # (auto) 3.58 K/uL (1.4-6.5); Neutrophils % (auto) 55.7 %; Platelet Count 126 K/uL (130-400); RDW Coefficient of Variation 16.4 % (11.5-14.5); RDW Standard Deviation 54.9 fL (36.4-46.3); Red Blood Count 2.89 M/uL (4.2-5.4); White Blood Count 6.44 K/uL (4.8-10.8)
[2020-04-28 17:15] LABS: Albumin Level 2.3 gm/dl (3.4-5.0); Calcium 9.8 mg/dl (8.5-10.1); Carbon Dioxide 27 mmol/L (21-32); Chloride 102 mmol/L (98-107); Glucose 146 mg/dl (70-99); Potassium 4.3 mmol/L (3.5-5.1); Sodium 138 mmol/L (136-145)
[2020-04-28 17:34] LABS: Alanine Aminotransferase 9 U/L (12-78); Albumin Globulin Ratio 0.5 (0.9-2); Alkaline Phosphatase 70 U/L (45-117); Aspartate Aminotransferase 13 U/L (15-37); BUN Creatinine Ratio 18.6 (10-20); Bilirubin,Total 0.3 mg/dl (0.2-1); Blood Urea Nitrogen 84 mg/dl (7-18); C Reactive Protein 5.02 mg/dl (0-0.29); Est GFR (African American) 9.8; Est GFR (Non-African American) 8.4; Globulin 4.7 gm/dl (2.5-4.0); Lipase 172 U/L (73-393); NT Pro B Type Natriuretic Pept 582 pg/ml (0-1800); Troponin I < 0.015 ng/ml (0-0.045)
--- NOTE | 2020-04-28 17:58 | History & Physical Report ---
Date of Service April 28, 2020 Assessment & Plan (1) Acute kidney injury: 84-year-old female with PMH of CKD stage III, hypertension, diabetes, lymphedema, hyperlipidemia, hypothyroidism w/ partial thyroidectomy 2/2 goiter, A. fib, and breast ca s/p R mastectomy in 2010 who presented with elevated creatinine. She had Telehealth appt w/ apprentice photographer who suggested she present to hospital. DDx for her LISA includes dehydration, AIN 2/2 antibiotic therapy, or may be 2/2 recent diuretic use. Requires admission for IV hydration, renal US, monitoring of kidney function. Acute Kidney Injury - Admit to med/surg telemetry - Give 500 mL NS bolus x1 - Start NS @80cc/hr thereafter (1 bag ordered for overnight--reassess fluid status for further hydration if necessary) - Renal US ordered--follow results - Follow Urine Protein/Creatinine ratio - Hold torsemide, continue cefepime for now but consider discontinuing if no improvement in Cr Atrial fibrillation - Patient with one documented episode of afib during an admission in 09/2018 - Converted after 1 dose IV Lopressor--no further events since - Was on Metoprolol 25mg daily, no anticoagulation--metoprolol stopped - EKG done in ED--no afib but sinus arrhythmia, official read pending - Cardiac telemetry for monitoring Septic arthritis of knee - Recent admission for this--currently on abx for 6 weeks after discharge - Continue IV cefepime 2g daily--consider changes as above Diabetes - Basal insulin with NPH - ISS w/ CF of 15, carb ratio of 1:% - Parameters as per previous admission's - Glycemic consult - Glucose checks AC/HS - Carb count diet - AM BMP Anemia - Hgb at 8.4 today - Stable since previous admission - Continue ferrous sulfate 325 mg PO qAM - CBC in AM Hyperlipidemia - Per primary care visit hyperlipidemia stable - On gemfibrozil for elevated triglycerides--continue Hypothyroidism - Last TSH 1.8 on 03/13 - Continue Levothyroxine 75mcg PO qAM Peripheral Neuropathy - Continue gabapentin 200mg PO HS FENGI: Heart healthy, carb consistent diet; IVF as above DVT ppx: Heparin 5000 units SQ q12h Dispo: Admit to med/surg tele Code Status: DNR/DNI (2) Chronic kidney disease, stage III (moderate): (3) Septic arthritis of knee: (4) Hypertension: (5) Acquired lymphedema: (6) Afib: (7) Hyperlipidemia: (8) Hypothyroidism: (9) Peripheral neuropathy: (10) Anemia: (11) Diabetes mellitus: History of Present Illness Chief Complaint: Abnormal labs Primary Care Provider: Narinder Caldwell MD Dana Mike is an 84-year-old female with PMH of CKD stage III, hypertension, diabetes, lymphedema, hyperlipidemia, hypothyroidism w/ partial thyroidectomy 2/2 goiter, A. fib, and breast ca s/p R mastectomy in 2010 who presented the ER for abnormal creatinine. She was seen at nephrology clinic today for hospital follow-up--was admitted 03/14-04/03 for septic left knee being treated with IV cefepime. She was also started on torsemide at discharge. At her f/u visit today she was noted to be dehydrated, weighing 207 lb from her target weight of 220 lbs. Her creatinine had been trending up as an outpatient and was found to be up to 4.4 from her usual baseline of 2.0. As such, she was advised to come to the ED by her apprentice photographer due to progressive LISA for IV hydration, renal US, and monitoring of her kidney function. In ED: Labs remarkable for Creatinine at 4.51, BUN of 84, phosphorous elevated at 5.5, CRP of 5.02, Hgb of 8.4 (recent labs have all been stable in the 8's). EKG w/ slightly prolonged QT, no afib. Urine protein/creatinine ratio ordered. Patient mentions that she has no new symptoms apart from leg swelling. She has had leg edema for years feels in the past few days it's been worse. Also mentions that she feels her abdomen is a little bloated. Otherwise denies any other sxs including fever, chills, CP, palp, SOB, urinary symptoms, nausea, vomiting, abd pain. Allergies Allergy/AdvReac Type Severity Reaction Status Date / Time Sulfa (Sulfonamide Allergy Intermediate BLISTERS Verified 04/28/20 16:45 Antibiotics) Home Medications Medication Instructions Recorded Confirmed Type aspirin 81 mg tablet,delayed 81 mg PO QAM 11/09/18 05/03/20 History release cholecalciferol (vitamin D3) 50 2,000 unit PO 3XWK 11/09/18 05/03/20 History mcg (2,000 unit) capsule multivitamin,tx-minerals 1 cap PO QAM 11/09/18 05/03/20 History omega 7-sit-bhp-fish oil 1,000 mg 1 cap PO QAM cap 11/09/18 05/03/20 History (120 mg-180 mg) capsule ascorbic acid (vitamin C) [Vitamin 500 mg PO DAILY 11/18/18 05/03/20 History C] levothyroxine 75 mcg PO QAM 05/20/19 05/03/20 History gabapentin 100 mg capsule 200 mg PO HS #180 cap 06/01/19 05/03/20 Rx insulin human U-100 NPH-regulr See Rx Instructions SQ BID ml 01/18/20 05/03/20 History 70-30 mix 100 unit/mL subcutaneous susp Past Med/Surg History Medical History (Updated 05/03/20 @ 00:04 by Diamond Mckeon) Acute kidney injury (11/2018) Acute kidney injury Afib Bibasilar crackles Cancer RIGHT BREAST CANCER Cellulitis of left leg Cellulitis of right leg Chronic back pain Chronic kidney disease, stage III (moderate) Congenital dislocation of hip Degenerative disc disease Diabetes mellitus IDDM DNR (do not resuscitate) DVT prophylaxis Erythema of back Fever Hypoxia Obesity Osteoarthritis Pancreatitis SEPTEMBER 2018 Peripheral neuropathy BILATERAL FEET Pressure ulcer Pressure ulcer of right heel, stage 3 Stage 3b chronic kidney disease Stage III pressure ulcer of right buttock Surgical History History of cataract surgery BILATERAL History of cholecystectomy History of detached retina repair LEFT History of hip surgery LEFT HIP DISLOCATION SURGERY A CHILD (UNSUCCESSFUL) History of mastectomy RIGHT BREAST WITH 1 LYMPH NODE REMOVAL History of thyroidectomy REMOVAL OF GOITER Hx of tonsillectomy Status post debridement hip open wound Family History Unknown Cancer Father Bone cancer Mother Diabetes Daughter Diabetes Breast cancer Son Diabetes Sister Diabetes Grandmother (Paternal) Breast cancer Denies family history of Ovarian cancer Prostate cancer Myocardial infarction Colorectal cancer Social History Smoking Status: Never smoker Second Hand Exposure: No; Hx Alcohol Use: No Hx Substance Use: No Preferred Language: Indonesian Communication Ability: Effective Visual Impairment: No Limitations Biology Manager Required: No Beliefs That Will Affect Care: Judaism Judaism Beliefs: Restorationism marital status: Current Living Situation: Spouse Feels Safe at Home: Yes Seatbelt Use: always Assistive Devices: Denture - Upper, Denture - Lower, Glasses and Walker Review of Systems Review of Systems: All systems reviewed & are unremarkable except as noted in HPI & below Physical Exam Physical Exam: GENERAL: A&Ox3. NAD. HEENT: PERRL, EOMI. Moist mucous membranes. NECK: No JVD. No lymphadenopathy. CHEST/LUNGS: CTAB A/P. No crackles, wheezes, rales, ronchi. HEART: RRR. No m/g/r. No carotid bruits. ABDOMEN: Distended, soft, NT. BS+ x4 EXTREMITIES: No cyanosis. Significant pedal edema bilaterally. SKIN: Warm and dry. Venous stasis changes on both legs. PSYCHIATRIC: Euthymic affect, no SI, no pressured speech, no hallucinations NEUROLOGIC: No weakness in extremities. Sensation intact. CN II-XII grossly intact. Results & Data Results & Data ([facility]) Vital Signs (Past 12 Hours) Vital Signs Temp Pulse Resp BP Pulse Ox 04/28/20 17:08 89 13 137/86 04/28/20 17:00 88 16 04/28/20 16:52 92 H 13 04/28/20 16:51 97 04/28/20 14:58 36.4 C L 90 18 135/59 L 98 Code Status & VTE Plan VTE Prophylaxis Plan VTE Prophylaxis will be ordered: Yes Supervising Physician Co-Signing Physician Notes I personally saw and examined the patient. I verified all brooks points and agree with Resident Physician Dr Yrn Teague with the following exceptions and/or additions: 84 year old female admission for acute on chronic renal failure. Recent admission, discharged Apr 03 with septic arthritis in left knee (continues on IV cefepime through PICC line). On diuretics for history of heart failure and hypervolemic last admission however currently hypovolemic with poor oral intake and under target weight at nephrology appointment today with subsequent lab work showing acute on chronic renal failure. No urinary symptoms. O/E Hypovolemic on exam with dry mucus membranes, Chest CTAB, No CVA tenderness. Abdomen SNT, BS normal. A/P LISA - Hold diuretics, gentle hydration with IV fluids (monitor respiratory status for pulmonary edema). Possible AIN to cefepime but no rash to support this diagnosis therefore will continue cefepime currently and monitor BMP. Consult nephrology. Resident Activity Tracking Resident Involvement: Resident Care Provided Care Provided: Adult Hospital Medicine (1) Afib Atrial fibrillation type: unspecified Qualified Code(s): I48.91 - Unspecified atrial fibrillation
--- NOTE | 2020-04-28 18:01 | Ultrasound Report ---
US renal/blad retro comp HISTORY: 84 years-old Female epi acute kidney injury COMPARISON: CT abdomen and pelvis 09/20/2018 TECHNIQUE: Multiple real-time sonographic images of the kidneys and urinary bladder were obtained ass essing grayscale appearance and color flow FINDINGS: The right kidney measures 11.6 cm in length. The left kidney measures 12.6 cm in length. Mild thinnin g bilaterally. Cortical medullary differentiation is preserved. No renal calculi, hydronephrosis or s uspicious mass lesions. Mild bilateral perinephric stranding redemonstrated. Unremarkable urinary bladder. Ureteral jets are not diagnostically visualized. IMPRESSION: 1. Unchanged bilateral cortical thinning without renal calculi or hydronephrosis. 2. Unremarkable urinary bladder. ACT 112: Negative or not required by law. The above report was generated using voice recognition software. It may contain grammatical, syntax o r spelling errors. Electronically signed by: Roland Starr M.D. 04/28/2020 5:59 PM
[2020-04-28] MEDS ORDERED: DEXTROSE 50% 50 ML SYRINGE IV PRN (20:14)
[2020-04-28] MEDS ORDERED: CARBOHYDRATES FOR HYPOGLYCEMIA PO PRN (20:14)
[2020-04-28] MEDS ORDERED: SODIUM CHLORIDE 0.9% 1000ML 1,000 ML IV SCH (20:14)
[2020-04-28] MEDS ORDERED: SODIUM CHLORIDE 0.9% 1000ML 500 ML IV ONE (20:14)
[2020-04-28] MEDS ORDERED: GLUCOSE 10 TABS/TUBE PO PRN (20:14)
[2020-04-28] MEDS ORDERED: GLUCAGON FOR INJ 1 MG VIAL SQ PRN (20:14)
[2020-04-28] MEDS ORDERED: GLUCOSE 40% GEL 15 GM TUBE PO PRN (20:14)
[2020-04-28] MEDS ORDERED: PHARMACY GLYCEMIC MGMT CONSULT PRN (20:32)
[2020-04-28] MEDS ORDERED: ACETAMINOPHEN 325 MG TAB PO PRN (20:41)
[2020-04-28] MEDS ORDERED: MAGNESIUM HYDROXIDE SUSP 30 ML UDC PO PRN (20:41)
[2020-04-28] MEDS ORDERED: POLYETHYLENE (MIRALAX) 17 GM PACK PO PRN (20:41)
[2020-04-28] MEDS ORDERED: ALUMINUM/MAGNESIUM SUSP 30 ML UDC PO PRN (20:41)
[2020-04-28] MEDS: INSULIN ASPART 100 UNITS/ML 3 ML PEN SC SCH (20:56)
[2020-04-28] MEDS ORDERED: INSULIN HUMAN 70% NPH/30% REGULAR SC SCH (21:00)
[2020-04-28 21:15] LABS: Appearance Urine Clear (Clear); Bacteria Urine Automated Negative (Negative); Bilirubin Urine Negative (Negative); Blood Urine 2+ (Negative); Color Urine Yellow; Epithelial Cell Urine Auto >30 /lpf (0-5); Glucose Urine UA Negative (Negative); Ketones Urine Negative (Negative); Leukocyte Esterase Urine 1+ (Negative); Nitrite Urine Negative (Negative); Protein Urine 2+ (Negative); Specific Gravity Urine 1.011 (1.000-1.030); Urobilinogen Urine Negative (Negative); WBC Urine Automated >30 /hpf (0-5); pH Urine 6.5 (4.5-7.5)
[2020-04-28 21:32] LABS: Creatinine Urine Random 37.1 mg/dl; Protein Creatinine Ratio Urine 2.6 (0-0.2); Total Protein Urine Random 96.2 mg/dl (0-11.9)
[2020-04-28] MEDS: HEPARIN SOD 5,000 UNIT/0.5 ML VIAL SQ SCH (22:01)
[2020-04-28] MEDS: GABAPENTIN 100 MG CAP PO SCH (22:02)
[2020-04-28] MEDS: MICONAZOLE NITRATE POWDER 43 GM EXT PRN ×2 (22:02→22:03)
[2020-04-29] MEDS: LEVOTHYROXINE SODIUM 75 MCG TABLET PO SCH (05:55)
[2020-04-29 06:29] LABS: Basophils # (auto) 0.01 K/uL (0-0.2); Basophils % (auto) 0.2 %; Eosinophils # (auto) 0.56 K/uL (0-0.5); Eosinophils % (auto) 11.2 %; Hematocrit (blood only) 26.1 % (37-47); Hemoglobin 8.1 g/dL (12.0-16.0); Immature Granulocytes # (auto) 0.03 K/uL (0.00-0.02); Immature Granulocytes % (auto) 0.6 %; Lymphocytes # (auto) 1.51 K/uL (1.2-3.4); Lymphocytes % (auto) 30.1 %; Mean Corpuscular Hemoglobin 28.6 pg (25-34); Mean Corpuscular Volume 92.2 fL (80-100); Mean Platelet Volume 10.5 fL (7.4-10.4); Monocytes # (auto) 0.24 K/uL (0.11-0.59); Monocytes % (auto) 4.8 %; Neutrophils # (auto) 2.67 K/uL (1.4-6.5); Neutrophils % (auto) 53.1 %; Platelet Count 111 K/uL (130-400); RDW Coefficient of Variation 16.4 % (11.5-14.5); RDW Standard Deviation 55.3 fL (36.4-46.3); Red Blood Count 2.83 M/uL (4.2-5.4); White Blood Count 5.02 K/uL (4.8-10.8)
[2020-04-29 06:57] LABS: Albumin Level 2.1 gm/dl (3.4-5.0); BUN Creatinine Ratio 19.6 (10-20); Calcium 8.9 mg/dl (8.5-10.1); Creatinine Clr Calc Pharmacy 11.2 ml/min; Est GFR (African American) 10.3; Est GFR (Non-African American) 8.9; Phosphorus 5.5 mg/dl (2.5-4.9); Potassium 4.2 mmol/L (3.5-5.1)
[2020-04-29] MEDS: gemfibroziL 600 MG TAB PO SCH (08:19)
[2020-04-29] MEDS: FERROUS SULFATE 325 MG TAB PO SCH (08:19)
[2020-04-29] MEDS: ASCORBIC ACID 500 MG TAB PO SCH (08:19)
[2020-04-29] MEDS: HEPARIN SOD 5,000 UNIT/0.5 ML VIAL SQ SCH ×2 (08:19→21:15)
[2020-04-29] MEDS: CEROVITE ADV FORMULA TAB PO SCH (08:19)
[2020-04-29] MEDS: ASPIRIN 81 MG ECTAB PO SCH (08:19)
[2020-04-29] MEDS: CHOLECALCIFEROL 1,000 UNITS 25 MCG TAB PO SCH (08:19)
[2020-04-29] MEDS: INSULIN ASPART 100 UNITS/ML 3 ML PEN SC SCH ×4 (08:20→21:14)
[2020-04-29] MEDS: OMEGA-3 (PURIFIED FISH OIL) 1 GM CAP PO SCH (08:20)
[2020-04-29] MEDS ORDERED: NON-FORMULARY MEDICATION (Cefepime [Cefepime] 2 gram Recon Soln) IV SCH (09:00)
[2020-04-29] MEDS ORDERED: INSULIN HUMAN 70% NPH/30% REGULAR SC SCH (09:00)
--- NOTE | 2020-04-29 09:47 | Hospitalist Progress Note ---
Date of Service April 29, 2020 Assessment & Plan (1) Acute kidney injury: 84-year-old female with PMH of CKD stage III, hypertension, diabetes, lymphedema, hyperlipidemia, hypothyroidism w/ partial thyroidectomy 2/2 goiter, A. fib, and breast ca s/p R mastectomy in 2010 who presented with elevated creatinine. She had Telehealth appt w/ arts administrator who suggested she present to hospital. DDx for her LISA includes dehydration, AIN 2/2 antibiotic therapy, or may be 2/2 recent diuretic use. Requires admission for IV hydration, renal US, monitoring of kidney function. Acute Kidney Injury on CKD3b - baseline Cr ~2 - 1.5L total IVF provided in ED - differential: prerenal LISA vs ATN vs AIN. will f/u UA in AM to check for pyuria - 04/28 renal US. unchanged bilat cortical thinning w/o calculi or hydronephrosis. unremarkable bladder. - Follow Urine Protein/Creatinine ratio - Hold torsemide, continue cefepime for now - spoke w/ nephrology. recommends strict Is/Os. likely dehydrated. can provide ivf if needed. - no leukocytosis. Hb 8.1, stable. electrolytes ok. Cr 2.710>3.950>4.510>4.3. BUN 84. egfr 8.9. phos 5.5H. - 80/cc LR started Atrial fibrillation - Patient with one documented episode of afib during an admission in 09/2018 - Converted after 1 dose IV Lopressor--no further events since - Was on Metoprolol 25mg daily, no anticoagulation--metoprolol stopped - EKG done in ED--no afib but sinus arrhythmia, official read pending - Cardiac telemetry for monitoring Septic arthritis of knee - Recent admission for this--currently on abx for 6 weeks after discharge - Continue IV cefepime 2g daily--consider changes as above Diabetes - Basal insulin with NPH - ISS w/ CF of 15, carb ratio of 1:% - Parameters as per previous admission's - Glycemic consult - Glucose checks AC/HS - Carb count diet - AM BMP Anemia - Hgb at 8.4 today - Stable since previous admission - Continue ferrous sulfate 325 mg PO qAM - CBC in AM Hyperlipidemia - Per primary care visit hyperlipidemia stable - On gemfibrozil for elevated triglycerides--continue Hypothyroidism - Last TSH 1.8 on 03/13 - Continue Levothyroxine 75mcg PO qAM Peripheral Neuropathy - Continue gabapentin 200mg PO HS FENGI: Heart healthy, carb consistent diet; LR 80/hr DVT ppx: Heparin 5000 units SQ q12h Dispo: Admit to med/surg tele Code Status: DNR/DNI (2) Septic arthritis of knee: (3) Hypertension: (4) Acquired lymphedema: (5) Afib: (6) Hyperlipidemia: (7) Hypothyroidism: (8) Peripheral neuropathy: (9) Anemia: (10) Diabetes mellitus: (11) Stage 3b chronic kidney disease: Admission and Anticipated Discharge Date Admission Date: April 28, 2020 Supervising Physician Co-Signing Physician Notes I personally examined the patient and verified all brooks points of history and exam, discussed case, and agree with decision making with Dr Seals. feeling ok. no new complaints. hasn't drank a lot today (i see her late in the afternoon and she's maybe had 30oz on the day) notes just doesn't feel thirsty vitals noted nad heent nc at mmm breathing unlabored no accessory muscles good effort skin no rashes no pallor or icterus ARF - volume depletion / prerenal possibly ATN >>>> AIN related to cefepime. since not drinking well, gentle fluids. follow. repeat UA as per nephro. otherwise as above Subjective States after left [facility] 04/03/21, went home, appetite has been ok (not hungry, but eats), but fluid intake has not been enough. This morning, feeling good and denies problems/changes in urination. 2 days of worsened LE swelling. No other symptom complaints. Started on 6 wk course of abx after hosp discharge 04/03/21, initially on IV cipro, soon switched to IV cefepime. Review of Systems Review of Systems: Constitutional: Denies fever, chills, Cardiovascular: Denies chest pain Respiratory: Denies shortness of breath Gastrointestinal: Denies abdominal pain, nausea, vomiting, constipation, diarrhea Genitourinary: Denies urinary symptoms including dysuria Musculoskeletal: See HPI Neurological: Denies headache Physical Exam Physical Exam: General: Grossly A&O. NAD. Cooperative. HEENT: Atraumatic, normocephalic. No obvious JVD. Pulm: Inspiratory crackles lower lung rizvi. Cardiac: RRR, -mrg. Radial pulses intact and symmetrical. bilat LE venous stasis changes, lymphedema, worse on L. Left knee looks similar to right knee and does not appear obviously erythematous or edematous. Abdominal: Nontender, nondistended, soft. Results & Data Results & Data ([facility]) Vital Signs (Past 12 Hours) Vital Signs Temp Pulse Pulse Resp BP Pulse Ox 04/29/20 07:36 36.5 C 88 18 144/72 H 98 04/29/20 04:00 36.5 C 90 18 132/74 96 04/29/20 01:18 88 04/28/20 23:00 36.6 C 99 H 18 127/71 99 Resident Activity Tracking Resident Involvement: Resident Care Provided Care Provided: Adult Hospital Medicine (1) Anemia Anemia type: unspecified type Qualified Code(s): D64.9 - Anemia, unspecified (2) Afib Atrial fibrillation type: unspecified Qualified Code(s): I48.91 - Unspecified atrial fibrillation
[2020-04-29] MEDS: CEFEPIME 1,000 MG in SYRINGE 0 ML IV SCH (11:00)
--- NOTE | 2020-04-29 11:11 | Nephrology Consultation ---
Date of Consultation April 29, 2020 Assessment & Plan (1) LISA (acute kidney injury): 84 yof with stage 3B CKD ( b/l Cr 1.7 to 2.0), recent left knee septic arthritis s/p I&D on 03/25/20, on ciprofloxacin as an outpatient, admitted with LISA. Urinalysis showing new onset proteinuria, hematuria and pyuria, renal ultrasound unremarkable. Has been voiding normally, normal p.o. intake and otherwise asymptomatic. AK could be secondary to volume depletion as she has been on high dose of tors emide, her weight at home lately has been much lower than her prior estimated dry weight. Possibility for acute interstitial nephritis with cefepime remains as patient seem to have new onset proteinuria, hematuria and pyuria with high WBC on UA. Received IV fluids since admission, diuretics has been on hold however no significant improvement in renal function yet although is still too early to see significant improvement. --continue to hold diuretics, monitor intake and output closely, monitor renal function. --repeat UA in a.m., if continue to have significant pyuria and proteinuria hematuria and no improvement in renal function, would need to consider possibility for AIN, discontinue cefepime and consider steroid if no improvement in renal function. Recommend consultation with ID for antibiotic management. If renal function starts to improve in next 24 hours, cefepime hopefully can be continued safely to complete the course for septic arthritis. --dose medications for GFR less than, left arm nephrology precaution for possible need for vascular access in future --epogen 15946 units x 1 dose now ( has decent iron store). Will follow Thank you for allowing me to participate in your patient's care. It was a pleasure to see Dana (2) Hypertension: (3) Proteinuria: (4) Hematuria: (5) Septic arthritis of knee: (6) Stage 3b chronic kidney disease: History of Present Illness Reason for Consultation: Acute kidney injury with history of CKD Attending Physician: Cam Cerna DO History of Present Illness Dana Mike is a 84-year-old Female with PMH significant for stage IIIB CKD, hypertension, diabetes, obesity, dyslipidemia, admitted to the hospital with LISA. Nephrology consult was requested to manage LISA. Electronic medical records are reviewed in detail during patient visit. Dana was recently admitted to the hospital from 03/14/2020 to 04/03 20 with septic arthritis of left knee with Pseudomonas. She had I &D of left knee, was on ciprofloxacin and doxycycline for few days which was eventually switched to cefepime 1 g IV q.12 hours prior to discharge to rehab. During hospitalization her renal function stayed relatively stable. She was discharged on torsemide 40 mg twice a day. Her baseline weight seems to be around 220 lb and on discharge her weight was 205 lb. She was discharged from rehab few days ago and has been home over last few days. She has been having weekly labs done as an outpatient. Dana has stage III B CKD, b/l cr 1.7 to 2.0, prior UA was negative for proteinuria, hematuria pyuria. CKD was thought to be secondary to microvascular disease with history of hypertension, diabetes. She has been following with Dr. [facility]. Two days ago outpatient lab showed LISA with creatinine 3.9 which was repeated yesterday and found to be at 4.5. Electrolyte was acceptable. She has been otherwise feeling well. Considering she has been on antibiotic and diuretics and new LISA she was admitted to the hospital for further evaluation. Overall she has been otherwise at her usual health, has been having normal p.o. intake, has been voiding normally at home. Did not have any fever, chills, shortness of breath, chest pain, nausea, vomiting, diarrhea or abdominal pain. Since admission she received almost 2 L of IV normal saline. Creatinine just slightly improved to 4.3 this morning. Urinalysis showed new proteinuria, hematuria, pyuria with WBC >30/HPF. Renal ultrasound was unremarkable, no postrenal obstruction. 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 This morning she is and her baseline health, denied any symptom. Allergies Allergy/AdvReac Type Severity Reaction Status Date / Time Sulfa (Sulfonamide Allergy Intermediate BLISTERS Verified 04/28/20 16:45 Antibiotics) Home Medications Medication Instructions Recorded Confirmed Type aspirin 81 mg tablet,delayed 81 mg PO QAM 11/09/18 04/28/20 History release cholecalciferol (vitamin D3) 50 2,000 unit PO 3XWK 11/09/18 04/28/20 History mcg (2,000 unit) capsule multivitamin,tx-minerals 1 cap PO QAM 11/09/18 04/28/20 History omega 7-jhi-sor-fish oil 1,000 mg 1 cap PO QAM cap 11/09/18 04/28/20 History (120 mg-180 mg) capsule ascorbic acid (vitamin C) [Vitamin 500 mg PO DAILY 11/18/18 04/28/20 History C] levothyroxine 75 mcg PO QAM 05/20/19 04/28/20 History gabapentin 100 mg capsule 200 mg PO HS #180 cap 06/01/19 04/28/20 Rx insulin human U-100 NPH-regulr See Rx Instructions SQ BID ml 01/18/20 04/28/20 History 70-30 mix 100 unit/mL subcutaneous susp gemfibrozil 600 mg tablet 600 mg PO QAM #30 tab 02/01/20 04/28/20 Rx allopurinol 100 mg PO Q2D 30 Days #15 tab 04/03/20 04/28/20 Rx cefepime 1 dose IV DAILY 30 Days ea 04/03/20 04/28/20 Rx ferrous sulfate 325 mg PO QAM 30 Days #30 tab 04/03/20 04/28/20 Rx torsemide 40 mg PO UD 04/28/20 04/28/20 History Patient History Medical History Acute kidney injury (11/2018) Afib Cancer Cellulitis of left leg Cellulitis of right leg Chronic back pain Congenital dislocation of hip Degenerative disc disease Diabetes mellitus DNR (do not resuscitate) DVT prophylaxis Fever Hypoxia Obesity Osteoarthritis Pancreatitis Peripheral neuropathy Pressure ulcer Pressure ulcer of right heel, stage 3 Stage III pressure ulcer of right buttock Surgical History History of cataract surgery History of cholecystectomy History of detached retina repair History of hip surgery History of mastectomy History of thyroidectomy Hx of tonsillectomy Status post debridement Family History Unknown Cancer Father Bone cancer Mother Diabetes Daughter Diabetes Breast cancer Son Diabetes Sister Diabetes Grandmother (Paternal) Breast cancer Denies family history of Ovarian cancer Prostate cancer Myocardial infarction Colorectal cancer Social History Smoking Status: Never smoker Second Hand Exposure: No; Do You Dip or Chew Tobacco: No; Tobacco Cessation Education Requested by Patient: No Hx Alcohol Use: No Hx Substance Use: No Preferred Language: Grenadian Communication Ability: Effective Visual Impairment: No Limitations Job Placement Officer Required: No Beliefs That Will Affect Care: Pentecostal Pentecostal Beliefs: Mormonism marital status: Current Living Situation: Spouse Other Information That Helps Us Care for You: No Feels Safe at Home: Yes Safety Concerns: Feels Safe At This Time Seatbelt Use: always Assistive Devices: Denture - Upper, Denture - Lower, Glasses and Walker Review of Systems Review of Systems: All systems reviewed & are unremarkable except as noted in Subjective Physical Exam Constitutional: WD/WN, vitals as above + morbidly obese; no acute distress Eyes: PERRL, conjunctivae normal, anicteric sclerae ENMT: external ear and nose normal, oropharynx normal Ears: no hearing impairment Neck: trachea midline Respiratory: normal respiratory effort, lungs clear to auscultation no cough Auscultation: no crackles, no rales and no wheezes Cardiovascular: Rate/Rhythm: regular rate and regular rhythm Heart Sounds: normal S1 and normal S2 Extremities: + edema (B/L LE edema) Gastrointestinal (Abdomen): normal bowel sounds, soft, nontender, no hepatosplenomegaly Percussion/Palpation: abdomen nontender, no guarding and abdomen not rigid Musculoskeletal: Extremities: extremities normal to inspection Gait: normal gait Skin: no rashes, warm and dry + ulcer and + erythema Neurologic: moves all extremities and awake; no focal motor deficits and not confused Psychiatric: A+Ox3, euthymic affect Results & Data ([facility]) Vital Signs (Past 12 Hours) Vital Signs Temp Pulse Pulse Resp BP Pulse Ox 04/29/20 08:00 85 04/29/20 07:36 36.5 C 88 18 144/72 H 98 04/29/20 04:00 36.5 C 90 18 132/74 96 04/29/20 01:18 88 PG Care Time/CCT Total # of Minutes Spent Total Time Spent with Patient: Total time spent is greater than 50% in coordination of care (as documented) at patient's floor/unit and/or counseling patient: Coding Level of Care Code 63516 Inpt Consult Level 5 Diagnoses LISA (acute kidney injury) N17.9 Hypertension I10 Proteinuria R80.9 Hematuria R31.9 Septic arthritis of knee M00.9 Stage 3b chronic kidney disease N18.32
--- NOTE | 2020-04-29 11:26 | Pharmacy Report ---
Pharmacy Glycemic Short Note 2 - Date of Service April 29, 2020 - Glycemic Short BSG Results (Last 24 hours): 04/28/20 04/28/20 04/29/20 16:45 20:06 06:09 Glucose 146 H 138 H POC Glucose 156 H 04/29/20 07:41 Glucose POC Glucose 157 H OUTPATIENT ANTIDIABETIC REGIMEN: * Novolin 70/30 60 units SQ BID * HbA1c: 6.8% (03/15/20) ASSESSMENT: * Ms Mike is an 84yo diabetic female admitted with acute kidney injury (SCr 4.51). * PMH is significant for CKD III, HTN, lymphedema, HLD, hypothyroidism w/ partial thyroidectomy 2/2 goiter, afib, breast CA s/p R mastectomy (2010) * Pt was recently admitted for septic arthritis of knee, and is currently on abx as an outpt (Cefepime) * 70/30 insulin held on admission and no basal insulin has been ordered, in the setting of significant LISA (SCr 4.3 this morning). * Will utilize Novolog for now, and add basal insulin again if/when appropriate. PLAN FOR INPATIENT GLYCEMIC CONTROL: * Hold outpatient oral diabetes medications * Basal insulin * none for now * Bolus insulin * NovoLog per scale ACHS or Q6hrs while NPO * Goal Range: Low 120 mg/dL - High 160 mg/dL * Correction Factor: 25 mg/dL/unit * Nutritional / Prandial insulin per carb ratio of 1 unit per 8 grams CHO consumed PLAN FOR DISCHARGE: * pending
[2020-04-29] MEDS ORDERED: EPOETIN ALFA 20,000 UNITS/ML VIAL SQ ONE (12:30)
--- NOTE | 2020-04-29 17:31 | Billing Data ---
Date of Service April 29, 2020 Coding Level of Care Code 49330 Subseq Hosp Care Lvl 3
[2020-04-29] MEDS: LACTATED RINGER'S 1,000 ML IV SCH (17:58)
[2020-04-29] MEDS: EUCERIN CR 120 GM JAR EXT SCH (21:14)
[2020-04-29] MEDS: GABAPENTIN 100 MG CAP PO SCH (21:15)
[2020-04-30 06:17] LABS: Hematocrit (blood only) 24.1 % (37-47); Hemoglobin 7.5 g/dL (12.0-16.0); Mean Corpuscular Hemoglobin 28.7 pg (25-34); Mean Corpuscular Hgb Conc 31.1 g/dL (32-36); Mean Corpuscular Volume 92.3 fL (80-100); Mean Platelet Volume 10.9 fL (7.4-10.4); Platelet Count 120 K/uL (130-400); RDW Coefficient of Variation 16.5 % (11.5-14.5); RDW Standard Deviation 55.3 fL (36.4-46.3); Red Blood Count 2.61 M/uL (4.2-5.4); White Blood Count 5.73 K/uL (4.8-10.8)
[2020-04-30] MEDS: LACTATED RINGER'S 1,000 ML IV SCH ×2 (06:30→17:52)
[2020-04-30] MEDS: LEVOTHYROXINE SODIUM 75 MCG TABLET PO SCH (06:31)
--- NOTE | 2020-04-30 06:59 | Electrocardiogram Report ---
Test Reason : Blood Pressure : / mmHG Vent. Rate : 087 BPM Atrial Rate : 087 BPM P-R Int : 170 ms QRS Dur : 102 ms QT Int : 384 ms P-R-T Axes : 060 -01 042 degrees QTc Int : 462 ms Sinus rhythm with Premature atrial complexes Low voltage QRS Borderline ECG When compared with ECG of 31-MAR-2020 16:57, No significant change Confirmed by Varghese Buck ([id number]) on 04/30/2020 6:58:50 AM Referred By: [email or web address] hBatt Confirmed By:Varghese Buck
[2020-04-30 07:11] LABS: BUN Creatinine Ratio 19.4 (10-20); Calcium 8.5 mg/dl (8.5-10.1); Creatinine Clr Calc Pharmacy 10.8 ml/min; Est GFR (African American) 9.8; Est GFR (Non-African American) 8.5; Phosphorus 5.3 mg/dl (2.5-4.9); Potassium 4.2 mmol/L (3.5-5.1)
[2020-04-30] MEDS: ASPIRIN 81 MG ECTAB PO SCH (07:51)
[2020-04-30] MEDS: gemfibroziL 600 MG TAB PO SCH (07:51)
[2020-04-30] MEDS: ASCORBIC ACID 500 MG TAB PO SCH (07:51)
[2020-04-30] MEDS: FERROUS SULFATE 325 MG TAB PO SCH (07:52)
[2020-04-30] MEDS: CEROVITE ADV FORMULA TAB PO SCH (07:52)
[2020-04-30] MEDS: OMEGA-3 (PURIFIED FISH OIL) 1 GM CAP PO SCH (07:53)
[2020-04-30] MEDS: HEPARIN SOD 5,000 UNIT/0.5 ML VIAL SQ SCH ×2 (07:57→20:40)
[2020-04-30] MEDS: INSULIN ASPART 100 UNITS/ML 3 ML PEN SC SCH ×4 (07:57→20:42)
[2020-04-30] MEDS: EUCERIN CR 120 GM JAR EXT SCH ×2 (07:57→20:41)
--- NOTE | 2020-04-30 08:05 | Hospitalist Progress Note ---
Date of Service April 30, 2020 Assessment & Plan (1) Acute kidney injury: Dana Mike is an 84 y/o female with PMH of CKD3b, hypertension, diabetes, lymphedema, hyperlipidemia, hypothyroidism, parox. A. fib (not on anticoagulation), and breast ca s/p R mastectomy in 2010 who presented with progressively elevated creatinine >4 in the context of recent hospital discharge late 03/2020 for septic joint and is half-way through 6 wk course of IV cefepime. Stable Acute Kidney Injury on CKD3b - prerenal->early ATN. vs. AIN - baseline Cr ~2 - 1.5L total IVF provided in ED - 04/28 renal US. unchanged bilat cortical thinning w/o calculi or hydronephrosis. unremarkable bladder. - Follow Urine Protein/Creatinine ratio - Hold torsemide, continue IVcefepime for now - spoke w/ nephrology. recommends strict Is/Os. likely dehydrated. can provide ivf if needed. - no leukocytosis. Hb 8.1, stable. electrolytes ok. Cr 2.710>3.950>4.510>4.3. BUN 84. egfr 8.9. phos 5.5H. - UA unchanged from prior. still has >30 pyuria. - 04/30/20 Cr 4.3->4.48, slightly bump in Cr despite hydration. will continue to monitor - per nephrology consult, consider AIN and consider change of IV cefepime if continued worsening in kidney function in 24 hours - patient has been on 100 mg QOD allopurinol, started at 03/2020 hospital admission. received today's dose, but will hold - held home gemfibrozil - checked w/ microbiology lab, lab confirms no wbc or granular casts - continue 80 mL/hr LR. if further worsening of renal function, may consider meropenem IV upon dispo home. Atrial fibrillation - Patient with one documented episode of afib during an admission in 09/2018 - Converted after 1 dose IV Lopressor--no further events since - Was on Metoprolol 25mg daily, no anticoagulation--metoprolol stopped - EKG done in ED--sinus w/ PACs - Cardiac telemetry for monitoring Septic arthritis of knee - Recent admission for this--currently on abx for 6 weeks after discharge - Continue IV cefepime 2g daily--consider changes as above Diabetes - Basal insulin with NPH - ISS w/ CF of 15, carb ratio of 1:% - Parameters as per previous admission's - Glycemic consult - Glucose checks AC/HS - Carb count diet - AM BMP Anemia, chronic - Hgb 8.1->7.5, partially from hemodilution from IVF. asymptomatic - Continue ferrous sulfate 325 mg PO qAM - CBC in AM Hyperlipidemia - Per primary care visit hyperlipidemia stable - On gemfibrozil for elevated triglycerides--held Hypothyroidism - Last TSH 1.8 on 03/13 - Continue Levothyroxine 75mcg PO qAM Peripheral Neuropathy - Continue gabapentin 200mg PO HS FENGI: Heart healthy, carb consistent diet; LR 80/hr DVT ppx: Heparin 5000 units SQ q12h Dispo: Admit to med/surg tele Code Status: DNR/DNI (2) Septic arthritis of knee: (3) Hypertension: (4) Acquired lymphedema: (5) Afib: (6) Hyperlipidemia: (7) Hypothyroidism: (8) Peripheral neuropathy: (9) Anemia: (10) Diabetes mellitus: (11) Stage 3b chronic kidney disease: Admission and Anticipated Discharge Date Admission Date: April 28, 2020 Supervising Physician Co-Signing Physician Notes I personally examined the patient and verified all brooks points of history and exam, discussed case, and agree with decision making with Dr Seals. feeling ok. no new complaints. nephro input appreciated vitals noted nad heent nc at mmm breathing unlabored no accessory muscles good effort skin no rashes no pallor or icterus ARF - volume depletion / prerenal possibly ATN >>>> AIN related to cefepime or allopurinol. continue gentle fluids, follow otherwise as above Subjective Denies any symptom complaints. Eating ok. No urinary complaints. No dysuria and is making urine. + BM. Swelling in legs perhaps slightly improved. Review of Systems Review of Systems: Constitutional: Denies fever, chills Cardiovascular: Denies chest pain, palpitations Respiratory: Denies shortness of breath Gastrointestinal: Denies abdominal pain, nausea, vomiting, constipation, diarrhea Genitourinary: Denies urinary symptoms including dysuria Musculoskeletal: Denies weakness Neurological: Denies headache. numbness/tingling from neuropathy is not new Physical Exam Physical Exam: General: Grossly A&O. NAD. Cooperative. HEENT: Atraumatic, normocephalic. Pulm: CTAB. -wheezes, -rales, -rhonchi. No respiratory distress. Cardiac: RRR, -mrg. Radial pulses intact and symmetrical. Weeping 3+ BLE, lymphedema, worse on left. Abdominal: Nontender, nondistended, soft. Integ: Chronic venous stasis changes at bilateral shins, worse on left. Results & Data Results & Data ([facility]) Vital Signs (Past 12 Hours) Vital Signs Temp Pulse Pulse Resp BP Pulse Ox 04/30/20 08:01 36.5 C 90 20 135/67 96 04/30/20 03:00 36.9 C 95 H 18 145/72 H 94 04/30/20 01:57 86 04/29/20 22:30 36.8 C 88 18 143/76 H 99 Resident Activity Tracking Resident Involvement: Resident Care Provided Care Provided: Adult Hospital Medicine (1) Anemia Anemia type: unspecified type Qualified Code(s): D64.9 - Anemia, unspecified (2) Afib Atrial fibrillation type: unspecified Qualified Code(s): I48.91 - Unspecified atrial fibrillation
[2020-04-30] MEDS ORDERED: allopurinoL 100 MG TAB PO SCH (09:00)
[2020-04-30 10:29] LABS: Appearance Urine Cloudy (Clear); Bacteria Urine Automated Negative (Negative); Bilirubin Urine Negative (Negative); Blood Urine 1+ (Negative); Color Urine Yellow; Glucose Urine UA Negative (Negative); Ketones Urine Negative (Negative); Leukocyte Esterase Urine 3+ (Negative); Nitrite Urine Negative (Negative); Protein Urine 2+ (Negative); RBC Urine Automated 0-4 /hpf (0-4); Specific Gravity Urine 1.012 (1.000-1.030); Urobilinogen Urine Negative (Negative); WBC Urine Automated >30 /hpf (0-5)
--- NOTE | 2020-04-30 11:25 | Nephrology Progress Note ---
Date of Service April 30, 2020 Assessment & Plan (1) LISA (acute kidney injury): -- Clinical presentation suggestive of ATN due to volume depletion versus AIN. -- Diuretics appropriately held and IVF provided to encourage positive fluid balance. -- Goal is to maintain fluid balance + 0.5-1 L/d. -- Please maintain a strong suspicion for AIN - likely related to cefepime. -- Dana has completed ~4 weeks of the abx since 03/31 for septic arthritis. I recommend discussion with ID regarding abx therapy moving forward. Sulfa allergy noted. Unfortunately, if there is no improvement in kidney function in the next 24 hours continuing the antibiotic would not be advised. -- Volume status improving with hydration. -- Diuretics held. -- Non-oliguric. -- Electrolytes acceptable. -- No indication for dialysis at this time. -- Medications are appropriately dosed for kidney function - including dose adjusted cefepime. -- Document I/O's. -- Repeat metabolic profile in the AM. (2) Stage 3b chronic kidney disease: -- CKD IIIb A3. -- Baseline creatinine ~3 mg/dL. 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 -- Followed by Dr. Bhatt as outpatient. (3) Septic arthritis of knee: -- Discuss considerations for antibiotic therapy moving forward with ID. Safety of continuing cefepime for kidney function is unclear. (4) Anemia: -- Procrit 20,000 units provided yesterday. -- Repeat H/H in the AM. (5) Edema: -- Diuretics held. -- Encourage slightly positive fluid balance. -- Management for hypoalbuminemia and venous insufficiency. Admission and Anticipated Discharge Date Admission Date: April 28, 2020 Subjective No acute events overnight. Dana was out of bed to chair this morning. Overall, she feels well. Edema in legs is stable. No GI complaints. Appetite is good. Drinking to thirst. Non-oliguric. No urinary complaints. No fevers or chills. No rash. Review of Systems Review of Systems: All systems reviewed & are unremarkable except as noted in HPI & below Physical Exam Constitutional: well developed and + obese; no acute distress Eyes: no scleral abnormality and no corneal abnormality ENMT: Mouth: no oral mucosal abnormality and oral mucous membranes not dry Neck: normal visual inspection and trachea midline Respiratory: normal respiratory effort Auscultation: lungs clear to auscultation bilaterally Cardiovascular: Rate/Rhythm: regular rate Heart Sounds: normal S1 and normal S2 Extremities: + edema Gastrointestinal (Abdomen): Percussion/Palpation: abdomen soft; abdomen nontender Musculoskeletal: Extremities: no cyanosis and no clubbing Skin: normal turgor; no lesions Neurologic: Motor/Sensory: no tremor and no asterixis Psychiatric: Orientation: alert and oriented x 3 Results & Data ([facility]) Vital Signs (Past 12 Hours) Vital Signs Temp Pulse Pulse Resp BP Pulse Ox 04/30/20 08:01 36.5 C 90 20 135/67 96 04/30/20 03:00 36.9 C 95 H 18 145/72 H 94 04/30/20 01:57 86 Laboratory Results Laboratory Results - last 24 hr 04/29/20 04/29/20 04/29/20 11:35 16:37 20:06 WBC RBC Hgb Hct MCV MCH MCHC RDW Std Deviation RDW Coeff of Brian Plt Count MPV Sodium Potassium Chloride Carbon Dioxide Anion Gap BUN Creatinine Est Cr Clr Drug Dosing Est GFR ( Amer) Est GFR (Non-Af Amer) BUN/Creatinine Ratio Glucose POC Glucose 188 H 186 H 211 H Calcium Phosphorus Albumin Urine Color Urine Appearance Urine pH Ur Specific [place] Urine Protein Urine Glucose (UA) Urine Ketones Urine Blood Urine Nitrite Urine Bilirubin Urine Urobilinogen Ur Leukocyte Esterase Urine WBC (Auto) Urine RBC (Auto) U Hyaline Cast (Auto) U Epithel Cells (Auto) Urine Bacteria (Auto) Urine Yeast 04/30/20 04/30/20 04/30/20 05:34 05:34 07:23 WBC 5.73 RBC 2.61 L Hgb 7.5 L Hct 24.1 L MCV 92.3 MCH 28.7 MCHC 31.1 L RDW Std Deviation 55.3 H RDW Coeff of Brian 16.5 H Plt Count 120 L MPV 10.9 H Sodium 140 Potassium 4.2 Chloride 108 H Carbon Dioxide 25 Anion Gap 7.0 BUN 87 H Creatinine 4.48 H Est Cr Clr Drug Dosing 10.8 Est GFR ( Amer) 9.8 Est GFR (Non-Af Amer) 8.5 BUN/Creatinine Ratio 19.4 Glucose 130 H POC Glucose 148 H Calcium 8.5 Phosphorus 5.3 H Albumin 2.0 L Urine Color Urine Appearance Urine pH Ur Specific [place] Urine Protein Urine Glucose (UA) Urine Ketones Urine Blood Urine Nitrite Urine Bilirubin Urine Urobilinogen Ur Leukocyte Esterase Urine WBC (Auto) Urine RBC (Auto) U Hyaline Cast (Auto) U Epithel Cells (Auto) Urine Bacteria (Auto) Urine Yeast 04/30/20 Unknown WBC RBC Hgb Hct MCV MCH MCHC RDW Std Deviation RDW Coeff of Brian Plt Count MPV Sodium Potassium Chloride Carbon Dioxide Anion Gap BUN Creatinine Est Cr Clr Drug Dosing Est GFR ( Amer) Est GFR (Non-Af Amer) BUN/Creatinine Ratio Glucose POC Glucose Calcium Phosphorus Albumin Urine Color Yellow Urine Appearance Cloudy A Urine pH 6.0 Ur Specific [place] 1.012 Urine Protein 2+ H Urine Glucose (UA) Negative Urine Ketones Negative Urine Blood 1+ H Urine Nitrite Negative Urine Bilirubin Negative Urine Urobilinogen Negative Ur Leukocyte Esterase 3+ H Urine WBC (Auto) >30 H Urine RBC (Auto) 0-4 U Hyaline Cast (Auto) 1-5 U Epithel Cells (Auto) 10-20 H Urine Bacteria (Auto) Negative Urine Yeast Budding A PG Care Time/CCT Total # of Minutes Spent Total Time Spent with Patient: Total time spent is greater than 50% in coordination of care (as documented) at patient's floor/unit and/or counseling patient: Coding Level of Care Code 77635 Subseq Hosp Care Lvl 3 Diagnoses LISA (acute kidney injury) N17.9 Stage 3b chronic kidney disease N18.32 Septic arthritis of knee M00.9 Anemia D64.9 Anemia type: unspecified type Edema R60.9 (1) Anemia Anemia type: unspecified type Qualified Code(s): D64.9 - Anemia, unspecified
[2020-04-30] MEDS: CEFEPIME 1,000 MG in SYRINGE 0 ML IV SCH (12:40)
--- NOTE | 2020-04-30 14:07 | Billing Data ---
Date of Service April 30, 2020 Coding Level of Care Code 41673 Subseq Hosp Care Lvl 3
[2020-04-30 20:41] LABS: Creatinine Urine Random 51.4 mg/dl
[2020-04-30] MEDS: GABAPENTIN 100 MG CAP PO SCH (20:41)
[2020-05-01] MEDS: LACTATED RINGER'S 1,000 ML IV SCH (06:00)
[2020-05-01] MEDS: LEVOTHYROXINE SODIUM 75 MCG TABLET PO SCH (06:00)
[2020-05-01 06:49] LABS: Calcium 8.7 mg/dl (8.5-10.1); Creatinine Clr Calc Pharmacy 12.2 ml/min; Est GFR (African American) 11.1; Est GFR (Non-African American) 9.5; Potassium 4.2 mmol/L (3.5-5.1)
--- NOTE | 2020-05-01 07:13 | Hospitalist Progress Note ---
Date of Service May 01, 2020 Assessment & Plan (1) Acute kidney injury: Dana Mike is an 84 y/o female with hx of CKD3b, hypertension, diabetes, lymphedema, hyperlipidemia, hypothyroidism, parox. A. fib (not on anticoagulation), and breast ca s/p R mastectomy in 2010 who presented with progressively elevated creatinine >4 in the context of recent hospital discharge late 03/2020 for septic joint and is 4 wk sthrough 6 wk course of IV cefepime. Stable. Acute Kidney Injury on CKD3b - patient voiding without complaints - prerenal->early ATN. vs. AIN. per [facility] labs, most likely intrinsic LISA - baseline Cr ~2 - 04/28 renal US. unchanged bilat cortical thinning w/o calculi or hydronephrosis. unremarkable bladder. - Held home torsemide since admission - spoke w/ nephrology. recommends strict Is/Os. likely dehydrated. can provide ivf if needed. - no leukocytosis - UA unchanged from prior. still has >30 pyuria. - 04/30/20 Cr 4.3->4.48, slightly bump in Cr despite hydration. will continue to monitor - per nephrology consult, consider AIN and consider change of IV cefepime if continued worsening in kidney function in 24 hours - patient has been on 100 mg QOD allopurinol, started at 03/2020 hospital admission. received today's dose, but will hold - held home gemfibrozil - checked w/ microbiology lab, lab confirms no wbc or granular casts - continue 80 mL/hr LR. if further worsening of renal function, may consider meropenem IV upon dispo home. 05/01/20 - 2.28L in. 251mL out. net +2L. cumulative since 04/28/20. 5.6 in. 1.3 out. net +4.2. - bun 84->84->97->82. Cr 4.51->4.3->4.48->4.07, improvement is reassuring - FEurea 38.4% (>35% suggests intrinsic). FENa 2.2% (>1% suggests intrinsic) - allopurinol and gemfibrozil held. continue IV cefepime. continue 80mL/hr LR - d/c'd mIVF because per nephrology recommendation - per nephrology, still consider interstitial nephritis. If not continued improvement in renal function, may switch/d/c cefepime. consider ID consult in that scenario - urine eos pending/uncollected mild crackles on lung exam - mild, likely 2/2 atelectasis - incentive spirometer ordered erythema of back - w/ mild pruritis. extremities also mildly pruritic, but symptoms milder - most likely allergic reaction to bedsheets. no visible rash. diffuse erythema. does not appear to be fungal infection at this time. considered millaria, but skin surface is smooth - continue prn topical creams - if no improvement, can add topical corticosteroid Atrial fibrillation - Patient with one documented episode of afib during an admission in 09/2018 - Converted after 1 dose IV Lopressor--no further events since - Was on Metoprolol 25mg daily, no anticoagulation--metoprolol stopped - EKG done in ED--sinus w/ PACs - Cardiac telemetry for monitoring Septic arthritis of knee - Recent admission for this--currently on abx for 6 weeks after discharge - IV cefepime 1g q24h Diabetes - Basal insulin with NPH - ISS w/ CF of 15, carb ratio of 1:% - Parameters as per previous admission's - Glycemic consult placed Anemia, chronic - Hgb 8.1->7.5 04/29/20, partially from hemodilution from IVF. may also be from CKD. asymptomatic - Continue ferrous sulfate 325 mg PO qAM - Procrit 20,000 units provided 04/29 by nephrology Hyperlipidemia - Per primary care visit hyperlipidemia stable - outpatient gemfibrozil for elevated triglycerides--held since 04/30/20 Hypothyroidism - Last TSH 1.8 on 03/13 - Continue Levothyroxine 75mcg PO qAM Peripheral Neuropathy - Continue gabapentin 200mg PO HS History of positive MRSA culture - 07/01/19 + wound culture - contact precautions per [facility] protocol (+ culture w/in 1 year) FENGI: Heart healthy, carb consistent diet; mIVF discontinued 05/01/20 DVT ppx: Heparin 5000 units SQ q12h Dispo: med surg. dispo dependent on continued improvedment of renal function, possibly 05/03/20 Code Status: DNR/DNI (2) Septic arthritis of knee: (3) Hypertension: (4) Acquired lymphedema: (5) Afib: (6) Hyperlipidemia: (7) Hypothyroidism: (8) Peripheral neuropathy: (9) Anemia: (10) Diabetes mellitus: (11) Stage 3b chronic kidney disease: (12) Erythema of back: (13) Bibasilar crackles: Admission and Anticipated Discharge Date Admission Date: April 28, 2020 Supervising Physician Co-Signing Physician Notes I personally examined the patient and verified all brooks points of history and exam, discussed case, and agree with decision making with Dr Seals. still feels OK no real complaints. labs d/w pt. she asked if eating lettuce could have contributed. vitals noted nad heent nc at mmm breathing unlabored no accessory muscles good effort skin no rashes no pallor or icterus ARF - volume depletion / possibly ATN >>>> AIN related to cefepime or allopurinol. volume status now good, hold further fluids, follow. if cefepime needs to be stopped --> ordered repeat ESR and CRP since she's been on cefepime for about a month; was pseudomonas so may need more like 6wks of treatment but might be improved enough. also if cefepime has to be stopped probably would get input from ortho and ID +/- MRI knee to determine ongoing abx (such as switch to meropenem or zosyn) or stop abx and watchful waiting. otherwise as above Subjective Feeling well. No pain. Some loose stools since (from abx), unchanged. No dysuria. Making urine. No hematuria. 2 days of itchiness mainly at back, some at arms and LE. Review of Systems Review of Systems: Constitutional: Denies fever, chill Cardiovascular: Denies chest pain Respiratory: Denies shortness of breath Gastrointestinal: Denies abdominal pain, nausea, vomiting, constipation Genitourinary: Denies urinary symptoms including dysuria Musculoskeletal: Denies muscle aches/pain, joint aches/pain Neurological: Denies headache, numbness, tingling, focal weakness Physical Exam Physical Exam: General: Grossly A&O. NAD. Cooperative. HEENT: Atraumatic, normocephalic. Pulm: Mild inspiratory crackles mid-lower lobes. No respiratory distress. Cardiac: RRR, -mrg. bilat lymphedema of LE, 3+ pitting, weeping Abdominal: Nontender, nondistended, soft. Integ. Bilat chronic venous stasis changes, unchanged from exam yesterday. Back is diffusely mildly erythematous, mild. No rash. Results & Data Results & Data ([facility]) Vital Signs (Past 12 Hours) Vital Signs Temp Pulse Pulse Resp BP Pulse Ox 05/01/20 04:03 36.6 C 106 H 18 153/68 H 96 04/30/20 23:56 36.8 C 98 H 17 134/66 95 04/30/20 23:09 90 04/30/20 21:41 91 H 04/30/20 19:15 36.5 C 88 18 151/69 H 92 Resident Activity Tracking Resident Involvement: Resident Care Provided Care Provided: Adult Hospital Medicine (1) Anemia Anemia type: unspecified type Qualified Code(s): D64.9 - Anemia, unspecified (2) Afib Atrial fibrillation type: unspecified Qualified Code(s): I48.91 - Unspecified atrial fibrillation
[2020-05-01] MEDS: OMEGA-3 (PURIFIED FISH OIL) 1 GM CAP PO SCH (07:54)
[2020-05-01] MEDS: ASCORBIC ACID 500 MG TAB PO SCH (07:54)
[2020-05-01] MEDS: ASPIRIN 81 MG ECTAB PO SCH (07:54)
[2020-05-01] MEDS: FERROUS SULFATE 325 MG TAB PO SCH (07:54)
[2020-05-01] MEDS: MICONAZOLE NITRATE POWDER 43 GM EXT PRN (07:55)
[2020-05-01] MEDS: EUCERIN CR 120 GM JAR EXT SCH ×2 (07:55→20:52)
[2020-05-01] MEDS: CEROVITE ADV FORMULA TAB PO SCH (07:55)
[2020-05-01] MEDS: HEPARIN SOD 5,000 UNIT/0.5 ML VIAL SQ SCH ×2 (07:56→20:50)
[2020-05-01] MEDS: INSULIN ASPART 100 UNITS/ML 3 ML PEN SC SCH ×4 (07:58→20:49)
--- NOTE | 2020-05-01 09:08 | Pharmacy Report ---
Pharmacy Glycemic Short Note 2 - Date of Service May 01, 2020 - Glycemic Short BSG Results (Last 24 hours): 04/30/20 04/30/20 04/30/20 11:39 16:43 20:29 Glucose POC Glucose 159 H 138 H 166 H 05/01/20 05/01/20 05:44 07:32 Glucose 133 H POC Glucose 145 H OUTPATIENT ANTIDIABETIC REGIMEN: * Novolin 70/30 60 units SQ BID * HbA1c: 6.8% (03/15/20) ASSESSMENT: 05/01/20: * Pt has received 29 units of insulin over the past 24hrs * 0 units of basal insulin * 29 units of bolus insulin with NovoLog per CF+CR * BSGs [phone] mg/dl * BSGs adequately controlled with current regimen. * Most likely basal insulin will need to be added back as renal function improves. Typically increased response to insulin is seen with impaired renal function- decrease in insulin dosing and frequent monitoring is required. 04/29/20 * Ms Mike is an 84yo diabetic female admitted with acute kidney injury (SCr 4.51). * PMH is significant for CKD III, HTN, lymphedema, HLD, hypothyroidism w/ parti al thyroidectomy 2/2 goiter, afib, breast CA s/p R mastectomy (2010) * Pt was recently admitted for septic arthritis of knee, and is currently on abx as an outpt (Cefepime) * 70/30 insulin held on admission and no basal insulin has been ordered, in the setting of significant LISA (SCr 4.3 this morning). * Will utilize Novolog for now, and add basal insulin again if/when appropriate. PLAN FOR INPATIENT GLYCEMIC CONTROL: * Hold outpatient premixed insulin * Basal insulin * none for now. May need to add NPH vs Lantus as renal function improves * Bolus insulin * NovoLog per scale ACHS or Q6hrs while NPO * Goal Range: Low 110 mg/dL - High 140 mg/dL * Correction Factor: 25 mg/dL/unit * Nutritional / Prandial insulin per carb ratio of 1 unit per 7 grams CHO consumed PLAN FOR DISCHARGE: * A1c is in goal range for patient at 6.8%. This value may be slightly unreliable d/t CKD and altered RBC turnover rate. No changes needed to outpatient regimen unless patient is experiencing hypoglycemia.
--- NOTE | 2020-05-01 10:50 | Nephrology Progress Note ---
Date of Service May 01, 2020 Assessment & Plan (1) LISA (acute kidney injury): -- Clinical presentation suggestive of intravascular volume depletion +/- ATN +/- AIN. -- Diuretics appropriately held and IVF has been provided to encourage positive fluid balance. -- IVF could reasonably be discontinued today. Dana is tolerating adequate PO intake. Volume status acceptable. -- Creatinine slightly improved suggesting early stages of renal recovery. -- Maintain a strong suspicion for AIN - possibly from cefepime. -- Allopurinol has been held since yesterday. -- Dana has completed ~4 weeks cefepime since 03/31 for septic arthritis. If we do not see continued improvement in kidney function over the next couple of days changing therapy would then be advised. -- Electrolytes acceptable. -- No indication for dialysis at this time. -- Medications are appropriately dosed for kidney function. -- Document I/O's. -- Repeat metabolic profile in the AM. -- If continued improvement in kidney function and acceptable volume status is noted tomorrow after discontinuation of IVF, from a nephrology perspective close outpatient follow up would be reasonable. (2) Stage 3b chronic kidney disease: -- CKD IIIb A3. -- Baseline creatinine ~2 mg/dL. 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 -- Followed by Dr. Bhatt as outpatient. (3) Septic arthritis of knee: -- Remains on cefepime with goal to complete 6-8 weeks of therapy per primary team. (4) Anemia: -- Procrit 20,000 units provided 04/29. -- Repeat CBC in the AM. -- Update iron profile with next blood work. (5) Edema: -- Management for hypoalbuminemia and venous insufficiency discussed with patient. Admission and Anticipated Discharge Date Admission Date: April 28, 2020 Subjective No acute events overnight. Dana was out of bed to chair this morning. Overall, she feels well. Edema in legs increasing slightly. No fevers. Breathing comfortably. Appetite is good. No GI complaints. Pruritic rash on back started yesterday. Dana's legs have also been itching below the knee but without rash. She did have itching in her back during her prior admission which she attributed to the mattress of the hospital bed. Review of Systems Review of Systems: All systems reviewed & are unremarkable except as noted in HPI & below Physical Exam Constitutional: well developed and + obese; no acute distress Eyes: no scleral abnormality and no corneal abnormality ENMT: Mouth: no oral mucosal abnormality and oral mucous membranes not dry Neck: normal visual inspection and trachea midline Respiratory: normal respiratory effort Auscultation: lungs clear to auscultation bilaterally Cardiovascular: Rate/Rhythm: regular rate Heart Sounds: normal S1 and normal S2 Extremities: + edema (chronic changes with non-pitting pedal edema, slightly increased) Gastrointestinal (Abdomen): Percussion/Palpation: abdomen soft; abdomen nontender Musculoskeletal: Extremities: no cyanosis and no clubbing Skin: + turgor decreased and + rash (erythematous patch covering upper portion of back include shouolder blades) Neurologic: Motor/Sensory: no tremor and no asterixis Psychiatric: Orientation: alert and oriented x 3 Results & Data ([facility]) Vital Signs (Past 12 Hours) Vital Signs Temp Pulse Pulse Resp BP Pulse Ox 05/01/20 08:11 36.6 C 94 H 18 144/67 H 96 05/01/20 04:03 36.6 C 106 H 18 153/68 H 96 04/30/20 23:56 36.8 C 98 H 17 134/66 95 04/30/20 23:09 90 Laboratory Results Laboratory Results - last 24 hr 04/30/20 04/30/20 04/30/20 11:39 16:43 20:29 Sodium Potassium Chloride Carbon Dioxide Anion Gap BUN Creatinine Est Cr Clr Drug Dosing Est GFR ( Amer) Est GFR (Non-Af Amer) BUN/Creatinine Ratio Glucose POC Glucose 159 H 138 H 166 H Calcium Ur Random Creatinine Ur Random Sodium Ur Random Urea Nitrogn 04/30/20 05/01/20 05/01/20 Unknown 05:44 07:32 Sodium 143 Potassium 4.2 Chloride 111 H Carbon Dioxide 26 Anion Gap 6.0 BUN 82 H Creatinine 4.07 H D Est Cr Clr Drug Dosing 12.2 Est GFR ( Amer) 11.1 Est GFR (Non-Af Amer) 9.5 BUN/Creatinine Ratio 20.0 Glucose 133 H POC Glucose 145 H Calcium 8.7 Ur Random Creatinine 51.4 Ur Random Sodium 36 Ur Random Urea Nitrogn 383 PG Care Time/CCT Total # of Minutes Spent Total Time Spent with Patient: Total time spent is greater than 50% in coordination of care (as documented) at patient's floor/unit and/or counseling patient: Coding Level of Care Code 25330 Subseq Hosp Care Lvl 3 Diagnoses LISA (acute kidney injury) N17.9 Stage 3b chronic kidney disease N18.32 Septic arthritis of knee M00.9 Anemia D64.9 Anemia type: unspecified type Edema R60.9 (1) Anemia Anemia type: unspecified type Qualified Code(s): D64.9 - Anemia, unspecified
[2020-05-01] MEDS: CEFEPIME 1,000 MG in SYRINGE 0 ML IV SCH (11:24)
--- NOTE | 2020-05-01 15:32 | Billing Data ---
Date of Service May 01, 2020 Coding Level of Care Code 57356 Subseq Hosp Care Lvl 2
[2020-05-01] MEDS: GABAPENTIN 100 MG CAP PO SCH (20:51)
[2020-05-02] MEDS: LEVOTHYROXINE SODIUM 75 MCG TABLET PO SCH (06:09)
[2020-05-02 06:31] LABS: Basophils # (auto) 0.01 K/uL (0-0.2); Basophils % (auto) 0.2 %; Eosinophils # (auto) 0.56 K/uL (0-0.5); Eosinophils % (auto) 10.6 %; Hemoglobin 7.4 g/dL (12.0-16.0); Immature Granulocytes # (auto) 0.04 K/uL (0.00-0.02); Immature Granulocytes % (auto) 0.8 %; Lymphocytes # (auto) 1.59 K/uL (1.2-3.4); Lymphocytes % (auto) 30.2 %; Mean Corpuscular Hemoglobin 28.6 pg (25-34); Mean Corpuscular Hgb Conc 30.8 g/dL (32-36); Mean Corpuscular Volume 92.7 fL (80-100); Mean Platelet Volume 10.1 fL (7.4-10.4); Monocytes # (auto) 0.29 K/uL (0.11-0.59); Monocytes % (auto) 5.5 %; Neutrophils # (auto) 2.77 K/uL (1.4-6.5); Neutrophils % (auto) 52.7 %; Nucleated RBC # (auto) 0.02 K/uL (0-0); Nucleated RBC % (auto) 0.3 %; Platelet Count 115 K/uL (130-400); RDW Coefficient of Variation 16.6 % (11.5-14.5); RDW Standard Deviation 55.9 fL (36.4-46.3); Red Blood Count 2.59 M/uL (4.2-5.4); White Blood Count 5.26 K/uL (4.8-10.8)
[2020-05-02 07:08] LABS: BUN Creatinine Ratio 19.9 (10-20); Calcium 8.8 mg/dl (8.5-10.1); Est GFR (African American) 11.8; Est GFR (Non-African American) 10.2; Potassium 4.2 mmol/L (3.5-5.1)
[2020-05-02 07:16] LABS: C Reactive Protein 3.71 mg/dl (0-0.29); Ferritin 109.4 ng/ml (8-388)
[2020-05-02] MEDS: ASPIRIN 81 MG ECTAB PO SCH (07:30)
[2020-05-02] MEDS: ASCORBIC ACID 500 MG TAB PO SCH (07:30)
[2020-05-02] MEDS: FERROUS SULFATE 325 MG TAB PO SCH (07:30)
[2020-05-02] MEDS: CHOLECALCIFEROL 1,000 UNITS 25 MCG TAB PO SCH (07:30)
[2020-05-02] MEDS: OMEGA-3 (PURIFIED FISH OIL) 1 GM CAP PO SCH (07:31)
[2020-05-02] MEDS: HEPARIN SOD 5,000 UNIT/0.5 ML VIAL SQ SCH (07:31)
[2020-05-02] MEDS: EUCERIN CR 120 GM JAR EXT SCH ×2 (07:31→08:24)
[2020-05-02] MEDS: CEROVITE ADV FORMULA TAB PO SCH (07:31)
[2020-05-02 07:36] LABS: RBC Morphology Unremarkable
[2020-05-02] MEDS: INSULIN ASPART 100 UNITS/ML 3 ML PEN SC SCH ×2 (08:25→12:26)
[2020-05-02] MEDS ORDERED: IRON SUCROSE 200 MG in 0.9 % SODIUM CHLORIDE 100 ML IV ONE (09:00)
[2020-05-02] MEDS ORDERED: EPOETIN ALFA 20,000 UNITS/ML VIAL SQ ONE (09:44)
--- NOTE | 2020-05-02 10:26 | Nephrology Progress Note ---
Date of Service May 02, 2020 Assessment & Plan (1) LISA (acute kidney injury): -- Creatinine continues to show early stages of renal recovery. -- Less likely to be AIN related to cefepime given the continued improvement in kidney function. -- Allopurinol has been held. -- Electrolytes acceptable. -- Medications are appropriately dosed for kidney function. -- Continued monitoring with close nephrology follow up. -- Will plan on repeat creatinine tomorrow versus Saturday. (2) Stage 3b chronic kidney disease: -- CKD IIIb A3. -- Baseline creatinine ~2 mg/dL. 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 -- Followed by Dr. Bhatt as outpatient. -- Labs within 1 week of hospital discharge. Follow up in clinic within 2 weeks. (3) Septic arthritis of knee: -- Remains on cefepime with goal to complete 6-8 weeks of therapy per primary team. (4) Anemia: -- Procrit 20,000 units provided 04/29 and additional booster of 20,000 units today. -- Tsat slightly low on PO iron. IV venofer 200 mg provided today. -- Continue to monitor closely. -- May require GI follow up as outpatient for complete evaluation. (5) Edema: -- Lymphatic management techniques reviewed as well as therapy for venous insufficiency. Admission and Anticipated Discharge Date Admission Date: April 28, 2020 Subjective No acute events overnight. Pruritus and rash are improving. Some increased LE edema noted. Edema is not going down as much as it had when keeping feet elevated as it had before. Edema does not bother her much at this time. Overall, she feels well. Review of Systems Review of Systems: All systems reviewed & are unremarkable except as noted in HPI & below Physical Exam Constitutional: well developed and + obese; no acute distress Eyes: no scleral abnormality and no corneal abnormality ENMT: Mouth: no oral mucosal abnormality and oral mucous membranes not dry Neck: normal visual inspection and trachea midline Respiratory: normal respiratory effort Auscultation: lungs clear to auscultation bilaterally Cardiovascular: Rate/Rhythm: regular rate Heart Sounds: normal S1 and normal S2 Extremities: + edema Gastrointestinal (Abdomen): Percussion/Palpation: abdomen soft; abdomen nontender Musculoskeletal: Extremities: no cyanosis and no clubbing Skin: + turgor decreased and + rash (erythematous patch covering upper portion of back include shouolder blades) Neurologic: Motor/Sensory: no tremor and no asterixis Psychiatric: Orientation: alert and oriented x 3 Results & Data ([facility]) Vital Signs (Past 12 Hours) Vital Signs Temp Pulse Pulse Resp BP Pulse Ox 05/02/20 09:00 94 H 05/02/20 07:31 36.8 C 89 16 128/71 96 05/02/20 02:48 36.6 C 81 20 145/75 H 95 05/01/20 23:55 73 Laboratory Results Laboratory Results - last 24 hr 05/01/20 05/01/20 05/01/20 11:24 16:43 20:22 WBC RBC Hgb Hct MCV MCH MCHC RDW Std Deviation RDW Coeff of Brian Plt Count MPV Immature Gran % (Auto) Neut % (Auto) Lymph % (Auto) [place] % (Auto) Eos % (Auto) Baso % (Auto) Neut # (Auto) Lymph # (Auto) [place] # (Auto) Eos # (Auto) Baso # (Auto) Immature Gran # (Auto) Absolute Nucleated RBC Nucleated RBC % (auto) RBC Morphology ESR Sodium Potassium Chloride Carbon Dioxide Anion Gap BUN Creatinine Est Cr Clr Drug Dosing Est GFR ( Amer) Est GFR (Non-Af Amer) BUN/Creatinine Ratio Glucose POC Glucose 152 H 124 H 161 H Calcium Iron Transferrin Transferrin % Sat Ferritin C-Reactive Protein 05/02/20 05/02/20 05/02/20 06:03 06:03 06:03 WBC 5.26 RBC 2.59 L Hgb 7.4 L Hct 24.0 L MCV 92.7 MCH 28.6 MCHC 30.8 L RDW Std Deviation 55.9 H RDW Coeff of Brian 16.6 H Plt Count 115 L MPV 10.1 Immature Gran % (Auto) 0.8 Neut % (Auto) 52.7 Lymph % (Auto) 30.2 [place] % (Auto) 5.5 Eos % (Auto) 10.6 Baso % (Auto) 0.2 Neut # (Auto) 2.77 Lymph # (Auto) 1.59 [place] # (Auto) 0.29 Eos # (Auto) 0.56 H Baso # (Auto) 0.01 Immature Gran # (Auto) 0.04 H Absolute Nucleated RBC 0.02 H Nucleated RBC % (auto) 0.3 RBC Morphology Unremarkable ESR 46 H Sodium 143 Potassium 4.2 Chloride 111 H Carbon Dioxide 25 Anion Gap 7.0 BUN 76 H Creatinine 3.85 H Est Cr Clr Drug Dosing 13.0 Est GFR ( Amer) 11.8 Est GFR (Non-Af Amer) 10.2 BUN/Creatinine Ratio 19.9 Glucose 123 H POC Glucose Calcium 8.8 Iron 45 Transferrin 185 L Transferrin % Sat 17 Ferritin 109.4 C-Reactive Protein 3.71 H 05/02/20 07:24 WBC RBC Hgb Hct MCV MCH MCHC RDW Std Deviation RDW Coeff of Brian Plt Count MPV Immature Gran % (Auto) Neut % (Auto) Lymph % (Auto) [place] % (Auto) Eos % (Auto) Baso % (Auto) Neut # (Auto) Lymph # (Auto) [place] # (Auto) Eos # (Auto) Baso # (Auto) Immature Gran # (Auto) Absolute Nucleated RBC Nucleated RBC % (auto) RBC Morphology ESR Sodium Potassium Chloride Carbon Dioxide Anion Gap BUN Creatinine Est Cr Clr Drug Dosing Est GFR ( Amer) Est GFR (Non-Af Amer) BUN/Creatinine Ratio Glucose POC Glucose 143 H Calcium Iron Transferrin Transferrin % Sat Ferritin C-Reactive Protein PG Care Time/CCT Total # of Minutes Spent Total Time Spent with Patient: Total time spent is greater than 50% in coordination of care (as documented) at patient's floor/unit and/or counseling patient: Coding Level of Care Code 58711 Subseq Hosp Care Lvl 3 Diagnoses LISA (acute kidney injury) N17.9 Stage 3b chronic kidney disease N18.32 Septic arthritis of knee M00.9 Anemia D64.9 Anemia type: unspecified type Edema R60.9 (1) Anemia Anemia type: unspecified type Qualified Code(s): D64.9 - Anemia, unspecified
[2020-05-02] MEDS: CEFEPIME 1,000 MG in SYRINGE 0 ML IV SCH (11:30)
[2020-05-02] MEDS ORDERED: CEFEPIME 1,000 MG in SYRINGE 0 ML IV ONE (13:00)
--- NOTE | 2020-05-02 13:36 | Discharge Summary ---
Date of Service May 02, 2020 Admission HPI Per Admitting Provider Dana Mike is an 84-year-old female with PMH of CKD stage III, hypertension, diabetes, lymphedema, hyperlipidemia, hypothyroidism w/ partial thyroidectomy 2/2 goiter, A. fib, and breast ca s/p R mastectomy in 2010 who presented the ER for abnormal creatinine. She was seen at nephrology clinic today for hospital follow-up--was admitted 03/14-04/03 for septic left knee being treated with IV cefepime. She was also started on torsemide at discharge. At her f/u visit today she was noted to be dehydrated, weighing 207 lb from her target weight of 220 lbs. Her creatinine had been trending up as an outpatient and was found to be up to 4.4 from her usual baseline of 2.0. As such, she was advised to come to the ED by her second rigger due to progressive LISA for IV hydration, renal US, and monitoring of her kidney function. In ED: Labs remarkable for Creatinine at 4.51, BUN of 84, phosphorous elevated at 5.5, CRP of 5.02, Hgb of 8.4 (recent labs have all been stable in the 8's). EKG w/ slightly prolonged QT, no afib. Urine protein/creatinine ratio ordered. Patient mentions that she has no new symptoms apart from leg swelling. She has had leg edema for years feels in the past few days it's been worse. Also mentions that she feels her abdomen is a little bloated. Otherwise denies any other sxs including fever, chills, CP, palp, SOB, urinary symptoms, nausea, vomiting, abd pain. Admission Exam Per Admitting Provider GENERAL: A&Ox3. NAD. HEENT: PERRL, EOMI. Moist mucous membranes. NECK: No JVD. No lymphadenopathy. CHEST/LUNGS: CTAB A/P. No crackles, wheezes, rales, ronchi. HEART: RRR. No m/g/r. No carotid bruits. ABDOMEN: Distended, soft, NT. BS+ x4 EXTREMITIES: No cyanosis. Significant pedal edema bilaterally. SKIN: Warm and dry. Venous stasis changes on both legs. PSYCHIATRIC: Euthymic affect, no SI, no pressured speech, no hallucinations NEUROLOGIC: No weakness in extremities. Sensation intact. CN II-XII grossly intact. Principal Diagnosis Acute Kidney Injury Discharge Exam Constitutional WD/WN, vitals as above Respiratory normal respiratory effort, lungs clear to auscultation Cardiovascular RRR, no murmur, no edema Gastrointestinal (Abdomen) normal bowel sounds, soft, nontender, no hepatosplenomegaly Skin edematous left knee without erythema, mildly TTP, no red streaking or crepitus, left knee is slightly more swollen than right knee bilateral stasis dermatitis rash Psychiatric A+Ox3, euthymic affect Discharge Data Allergies Allergy/AdvReac Type Severity Reaction Status Date / Time Sulfa (Sulfonamide Allergy Intermediate BLISTERS Verified 04/28/20 16:45 Antibiotics) Consultations 04/28/20 16:31 ED Decision to Admit Stat 04/28/20 21:29 Consult Nephrology Routine Ordered Studies 04/28/20 16:26 US renal/blad retro comp Stat Hospital Course (1) Acute kidney injury: Dana Mike is an 84 y/o female with hx of CKD3b, hypertension, diabetes, lymphedema, hyperlipidemia, hypothyroidism, parox. A. fib (not on anticoagulation), and breast ca s/p R mastectomy in 2010 who was admitted to [facility] on 04/28/2020 for LISA on CKD3b. Acute Kidney Injury on CKD3b - admitted awith Cr 4.51 and BUN:Cr ratio of 18.3, baseline Cr 2 - UA with spec grav 1.012 but w/o WBCs or granular casts - FENa 2.2% and FEurea 38.4% - intrinsic kidney injury - 04/28 renal US. unchanged bilat cortical thinning w/o calculi or hydronephrosis. unremarkable bladder. - suspect ATN after pre-renal injury 2/2 dehydration - Held nephrotoxic medications/diuretics on admission: Torsamide, Gemfibrozil, Allopurinol - Cr improved to <4 after several days of IVFs, IVFs stopped on 05/01 - on discharge 05/02: - continue to hold nephrotoxic home medications - BMP in 1 week - f/u with Dr. Bhatt (second rigger) in 2 weeks Septic Arthritis of Left Knee - Recent admission for this--currently on abx for 6 weeks after discharge - IV cefepime 1g q24h - continue for 2 more weeks (total of 6 weeks) after d/c Paroxysmal Atrial fibrillation - no home meds for this (no rate control or anti-coagulation) - only one recorded episode in 2019; remained in sinus rhythm throughout this hospitalization Diabetes - Controlled with basal insulin + SSI while hospitalized - Continue home meds on discharge Chronic Normocytic Anemia - baseline of 7-8 for over one year, decreased from - iron studies on 05/01 showed iron/ferritin WNL and mildly decreased transferrin - suspect anemia of chronic disease 2/2 CKD - Procrit 20,000 units provided 04/29 by nephrology - continue to follow as outpatient Hyperlipidemia - Gemfibrozil held as mentioned above Hypothyroidism - Last TSH 1.8 on 03/13 - Continue Levothyroxine 75mcg PO qAM Peripheral Neuropathy - Continue Gabapentin 200mg PO HS (2) Septic arthritis of knee: (3) Hypertension: (4) Acquired lymphedema: (5) Afib: (6) Hyperlipidemia: (7) Hypothyroidism: (8) Peripheral neuropathy: (9) Anemia: (10) Diabetes mellitus: (11) Stage 3b chronic kidney disease: (12) Erythema of back: (13) Bibasilar crackles: Total Time Total Time Spent Total Time Spent (In Minutes): 35 minutes Total Time Includes: Examination of the Patient, Discharge Planning, Medication Reconciliation and Communication With Other Providers Discharge Plan Discharge Items Patient Disposition: Home - Home Health Services Reason For Visit: LISA Discharge Diagnosis: Acute Kidney Injury Activity: Per Instructions section Non-emergency contact: Primary Care Provider and Pharmacy Coordinator Call non-emergency contact if: you have any medication questions and you have a fever Follow-up/Referrals: Narinder Caldwell MD [Primary Care Provider] - 05/09/20 2:15 pm Diet: Carb Consistent or DM2 and Heart Healthy Addtl Attending Provider Instructions: You were admitted to [facility] on 04/28/2020 due to an acute kidney injury, on top of your chronic kidney disease. On evaluation, your Creatinine, which is a marker of kidney function, was higher than it normally is, which indicates that you had an acute kidney injury. The cause of your kidney injury was though to be due to dehydration, and you were started on IV fluids to help improve your fluid balance. Several of your medications (Allopurinol, Gemfibrozil, Torsemide) were also held due to possible side effects of worsening your kidney injury. Your kidney function improved with the IV fluids, and they were stopped on 05/01/2020. You will be discharged in improved condition on 05/02/2020. We recommend that you follow-up with blood work to check on your kidney function within the next week. Additionally, we recommend that you make a follow-up appointment with Dr. Bhatt in 2 weeks to follow up on this. You should also make sure to continue drinking at least 4 16-ounce bottles of water per day. Additionally, you should stop taking Allopurinol, Gemfibrozil and Torsemide for now. You can discuss re- starting these medications with Dr. Bhatt at your appointment. As far as your septic arthritis (left knee infection), you should continue to take the IV Cefepime (antibiotic) for another 2 weeks, for a total of 6 weeks of therapy. You should make a follow-up appointment with your PCP in 2 weeks to check on this infection. Pending Studies at Discharge: No Stand-Alone Forms: My [facility] [place], Smoking Cessation Medications and DC Order Prescriptions: Continued gabapentin 100 mg capsule 200 mg PO HS Qty: 180 RF: 3 insulin NPH and regular human 100 unit/mL (70-30) suspension See Rx Instructions SQ BID RF: 0 cholecalciferol (vitamin D3) [Vitamin D3] 2,000 unit capsule 2,000 unit PO 3XWK RF: 0 Multi-Vitamin HP/Minerals capsule 1 cap PO QAM RF: 0 omega 4-bbl-zug-fish oil [Fish Oil] 1,000 mg (120 mg-180 mg) capsule 1 cap PO QAM RF: 0 aspirin [Aspirin Low Dose] 81 mg tablet,delayed release (DR/EC) 81 mg PO QAM RF: 0 ascorbic acid (vitamin C) [Vitamin C] 500 mg Tablet 500 mg PO DAILY RF: 0 levothyroxine 75 mcg tablet 75 mcg PO QAM RF: 0 cefepime 2 gram Recon Soln 1 dose IV DAILY 30 Days RF: 0 ferrous sulfate 325 mg (65 mg iron) Tablet,Delayed Release (Dr/Ec) 325 mg PO QAM 30 Days Qty: 30 RF: 0 Discontinued gemfibrozil [Lopid] 600 mg tablet 600 mg PO QAM Qty: 30 RF: 5 allopurinol 100 mg Tablet 100 mg PO Q2D 30 Days Qty: 15 RF: 0 torsemide 20 mg tablet 40 mg PO UD RF: 0 Discharge Orders: Discharge Order (Routine); Ordered 05/02/20 Ordered By: Rolando Pagan Admission Data Admit Date/Time: 04/28/20 17:31 Attending Provider: Nadir Walker Admit Provider: Jesus Manuel Frederick Primary Care Provider: Narinder Caldwell Other Providers: Jesus Manuel Frederick ; Felicitas Sanders ; Boogie Seals ; [place] Other Interventions: Discharge Summary Assessment (RN) Last Done: 05/02/20 15:31 Supervising Physician Co-Signing Physician Notes Attending attestation Pt seen and examined in concert with Dr. Pagan. In agreement with the documented findings as noted in the resident documentation with any exceptions or additions as noted here. Stable left knee pain and swelling at subjective baseline. On examination, S1/S2 nl RRR no MCG. CTAB. Abd NT/ND BS+ve. LLE 1+ edema with distal venous stasis changes without warmth or TTP LISA on CKDIII - improving gradually, will likely be protracted recovery. repeat BMP and f/u with nephrology as noted Septic arthritis - continue abx therapy and follow with primary management service Chronic anemia, likely chronic disease - s/p erythropoetin, stable at baseline of 7-8 Else see resident documentation as noted. Total attending time spent on day of discharge: 35 minutes. Resident Activity Tracking Resident Involvement: Resident Care Provided Care Provided: Adult Hospital Medicine
--- NOTE | 2020-05-03 10:53 | Billing Data ---
Date of Service April 28, 2020 Coding Level of Care Code 11423 Initial Inpt Care Lvl 3
[2020-05-03] MEDS ORDERED: CEFEPIME 2,000 MG in SYRINGE 0 ML IV SCH (12:00)
--- NOTE | 2020-07-06 08:58 | Coding Query ---
CODING QUERY To promote full compliance with coding requirements relating to patient care, provider participation is requested in all cases of behavioral health counselor uncertainty. Please assist us with the question(s) below: Coding Question(s): A wound consult was ordered: fragile skin/purplish/red buttocks/bilateral seeping legs/groin creases. Nursing notes state fragile skin. Wound care evaluated the patient and ordered Eucerin. Please document any significant condition if appropriate. Physician's Response(s): None Thank you Brit Church CCS Principal Diagnosis: "that condition established after study, to be chiefly responsible for occasioning the admission of the patient to the hospital for care." Co-Existing Principal Diagnosis: "when two or more diagnoses equally meet the criteria for principal diagnosis as determined by the circumstances of admission, diagnostic work up, and/or therapy provided, and the Alphabetic Index, Tabular List, or another coding guideline does not provide sequencing direction, any one of the diagnoses may be sequenced first." "When the physician has documented what appears to be a current diagnosis in the body of the record, but has not included the diagnosis in the final diagnostic statement, the physician should be asked whether the diagnosis should be added." (Source Coding Clinic 2 QTR90. p3-4) [facility]
== END 2020-05-02 18:00 | disposition home health service (06) | DRG 684 ==
LOC: ED 14:51 → SUATTDRO 17:31 → 2W 17:31

== ENCOUNTER 2020-11-06 09:22 | Inpatient (IN) ==
[2020-11-06] MEDS ORDERED: PIPERACILL/TAZOBAC CONSULT ACTIVE PRN ×2 (09:45→15:24)
[2020-11-06] MEDS ORDERED: PIPERACILLIN/TAZOBACTAM 4.5 GM/120 ML BAG IV ONE (09:45)
[2020-11-06] MEDS ORDERED: SODIUM CHLORIDE 0.9% 1000ML 1,000 ML IV SCH (09:45)
[2020-11-06] MEDS ORDERED: ONDANSETRON INJ 2 MG/ML 2 ML VIAL IV STA (09:53)
--- NOTE | 2020-11-06 09:53 | Emergency Department Note ---
Impression & Plan Cellulitis, Left leg pain, Left knee pain, Leukocytosis ED Provider Note NAME: WILLA SLAUGHTER AGE: 85 SEX: F : 1935 ARRIVES VIA: Ambulance INFORMANT: [Patient] ED PROVIDER(S): [Geoffrey Frankel MD] CHIEF COMPLAINT: Left knee pain HISTORY OF PRESENT ILLNESS: The patient is an 85-year-old female presents with increasing pain in her left knee and leg for the last few weeks. In the last several days, things have really escalated. This morning, she could not bear weight on the left leg. The pain is a 10/10. A few days ago, she had some rigors and chills. There has been no documented fever. She has noticed some erythema tracking up her left leg. There has been no cough, cold or congestion. No shortness of breath or abdominal pain. No nausea or vomiting. No urinary complaints. She has had cellulitis and she has had a left knee joint infection previously. REVIEW OF SYSTEMS: See HPI for pertinent positives and negatives. A total of ten systems were reviewed and were otherwise negative. PMHx/PSHx: See Below SOCIAL HISTORY: See Below. PHYSICAL EXAM: GENERAL: Patient is in no acute distress. HEENT: No acute trauma, normocephalic atraumatic, mucous membranes moist, no nasal congestion, no scleral icterus. NECK: No stridor, no adenopathy, no meningismus, trachea is midline. LUNGS: Clear to auscultation bilaterally, no wheeze, no rhonchi, breath sounds equal. HEART: No murmurs, normal rate, irregular rhythm. ABDOMEN: Soft, nontender, bowel sounds positive, reducible nontender umbilical hernia, no peritonitis. EXTREMITIES: No cyanosis. She has moderate to severe bilateral pedal edema with some chronic skin changes/erythema. The erythema to the left leg is quite a bit worse and extends from the foot to just below the knee. There is ascending erythema along the lateral aspect of the left leg crossing the knee and extendi ng to the mid thigh. This area does have warmth. Movement of the left knee causes really minimal discomfort. The left knee does seem somewhat swollen compared to the right. NEUROLOGIC: Oriented x 3, no acute motor or sensory deficits, no focal weakness. SKIN: No jaundice, no diaphoresis. DIFFERENTIAL DIAGNOSIS: Sepsis, UTI, pneumonia, metabolic abnormality, electrolyte abnormalities, cardiac sources, cellulitis, septic joint, UTI, bacteremia, intracerebral event, toxicologic etiology, neurologic event, as well as other pathologies. EMERGENCY DEPARTMENT COURSE/PROCEDURES: ECG: Indication was potential sepsis. The ECG shows a sinus rhythm with PACs. The rate is 93. There is some nonspecific ST change. No ST elevation. No PV Cs. The QTc is 465. Continuous Cardiac Monitoring: An order was placed for continuous cardiac monitoring. The monitor shows a rate of 93 with sinus rhythm with PACs. MEDICAL DECISION MAKING: There is a mild leukocytosis which would be consistent with infection. The patient does have anemia with a hemoglobin of 9.7. The patient carries a history of anemia. There is a normal platelet count. No concerning coagulopathy. Creatinine is somewhat elevated at 1.63, she has a history of renal insufficiency. No worrisome electrolyte abnormality in need of correction. Lactic acid level is not elevated making severe sepsis less likely. No liver enzyme elevation. ECG shows a sinus rhythm with some PACs, no acute ischemia. Cardiac enzyme testing x1 is not consistent with acute cardiac injury. Urinalysis is suggestive of potential infection. Covid testing returned negative. Left knee film showed an effusion and some teno-ah-uhcd change, no fracture. On exam, the patient had an obvious left lower extremity cellulitis. The patient received IV Zosyn as antibiotic coverage. She was given IV morphine as needed for pain. She received a liter of IV saline. She received IV Zofran for nausea. The patient has a left leg cellulitis, possibly the start of a left knee joint infection. She has had infection in this joint before. On my exam, I can move the knee fairly freely without significant discomfort. I did speak with the patient and case management. The on-call hospitalist was consulted. Orthopedics can be consulted with regard to the potential infection of the left knee joint. Past Med/Surg History Medical History Acute kidney injury Afib Cellulitis of right leg Central venous catheter in place Chronic back pain Chronic kidney disease, stage III (moderate) Congenital dislocation of hip Degenerative disc disease Diabetes mellitus IDDM DNR (do not resuscitate) History of breast cancer History of septic arthritis Obesity Osteoarthritis Pancreatitis SEPTEMBER 2018 Peripheral neuropathy BILATERAL FEET Pressure ulcer of right heel, stage 3 Stage III pressure ulcer of right buttock Surgical History History of cataract surgery BILATERAL History of cholecystectomy History of detached retina repair LEFT History of hip surgery LEFT HIP DISLOCATION SURGERY A CHILD (UNSUCCESSFUL) History of mastectomy RIGHT BREAST WITH 1 LYMPH NODE REMOVAL History of thyroidectomy REMOVAL OF GOITER Hx of tonsillectomy Status post debridement hip open wound Family History Unknown Cancer Father Bone cancer Mother Diabetes Daughter Diabetes Breast cancer Son Diabetes Sister Diabetes Grandmother (Paternal) Breast cancer Denies family history of Ovarian cancer Prostate cancer Myocardial infarction Colorectal cancer Social History Smoking Status: Never smoker Second Hand Exposure: No; Hx Alcohol Use: No Hx Substance Use: No Preferred Language: Portuguese Communication Ability: Effective Visual Impairment: No Limitations Diamond Selector Required: No Beliefs That Will Affect Care: None marital status: Current Living Situation: Spouse Feels Safe at Home: Yes Seatbelt Use: always Assistive Devices: Denture - Upper, Denture - Lower, Glasses and Wheelchair Allergies Allergies Allergy/AdvReac Type Severity Reaction Status Date / Time cefepime Allergy Severe Acute Verified 11/06/20 10:23 interstitial nephritis Sulfa (Sulfonamide Allergy Intermediate BLISTERS Verified 11/06/20 10:23 Antibiotics) Home Meds Home Medications Medication Instructions Recorded Confirmed aspirin 81 mg tablet,delayed 81 mg PO QAM 11/09/18 11/06/20 release (Aspirin Low Dose) cholecalciferol (vitamin D3) 50 2,000 unit PO 3XWK 11/09/18 11/06/20 mcg (2,000 unit) capsule (Vitamin D3) multivitamin,tx-minerals 1 cap PO QAM 11/09/18 11/06/20 (Multi-Vitamin HP/Minerals) omega 2-trb-znb-fish oil 1,000 mg 1 cap PO QAM cap 11/09/18 11/06/20 (120 mg-180 mg) capsule (Fish Oil) ascorbic acid (vitamin C) 500 mg 500 mg PO DAILY 11/18/18 11/06/20 tablet (Vitamin C) insulin human U-100 NPH-regulr See Rx Instructions SQ BID ml 01/18/20 11/06/20 70-30 mix 100 unit/mL subcutaneous susp acetaminophen 500 mg tablet 1,000 mg PO Q6H PRN 11/06/20 11/06/20 (Tylenol Extra Strength) Previous Rx's Medication Instructions Recorded furosemide 80 mg tablet 80 mg PO QAM #90 tab 06/22/20 gabapentin 100 mg capsule 200 mg PO HS #180 cap 06/29/20 levothyroxine 75 mcg tablet 75 mcg PO QAM #90 tab 07/19/20 Results & Data (ED) Vital Signs Vital Signs - 24 hr 11/06/20 09:30 11/06/20 09:36 11/06/20 10:52 Temperature 37.1 C Temperature Source Oral Pulse Rate 93 H Pulse Rate [Finger] 105 H Respiratory Rate 20 16 Blood Pressure 132/69 Blood Pressure [Left Arm] 134/69 Blood Pressure Mean 90 Blood Pressure Mean [Left Arm] 90 Pulse Oximetry 95 95 93 Oxygen Delivery Method Room Air Room Air Room Air Sepsis Recent Fever Within 48 Hours No Sepsis New/Unexplained Change in Mental Status N/A Sepsis Action Taken by Nursing No Action Required 11/06/20 11:23 Temperature Temperature Source Pulse Rate Pulse Rate [Finger] 103 H Respiratory Rate 18 Blood Pressure Blood Pressure [Left Arm] 117/57 L Blood Pressure Mean Blood Pressure Mean [Left Arm] 77 Pulse Oximetry 94 Oxygen Delivery Method Room Air Sepsis Recent Fever Within 48 Hours Sepsis New/Unexplained Change in Mental Status Sepsis Action Taken by Long-Term Medications Current Medication List: was personally reviewed by me Laboratory Data Attestation: I reviewed the patient's lab results. Result diagrams: 11/06/20 10:15 11/06/20 10:15 Lab Results 11/06/20 11/06/20 11/06/20 Range/Units 10:15 10:15 10:15 WBC 12.46 H (4.8-10.8) K/uL RBC 3.12 L (4.2-5.4) M/uL Hgb 9.7 L (12.0-16.0) g/dL Hct 30.0 L (37-47) % MCV 96.2 (80-100) fL MCH 31.1 (25-34) pg MCHC 32.3 (32-36) g/dL RDW Std Deviation 51.3 H (36.4-46.3) fL RDW Coeff of Brian 14.5 (11.5-14.5) % Plt Count 165 (130-400) K/uL MPV 10.8 H (7.4-10.4) fL Immature Gran % (Auto) 0.4 % Neut % (Auto) 77.5 % Lymph % (Auto) 15.3 % Cedar % (Auto) 5.9 % Eos % (Auto) 0.7 % Baso % (Auto) 0.2 % Neut # (Auto) 9.65 H (1.4-6.5) K/uL Lymph # (Auto) 1.91 (1.2-3.4) K/uL Cedar # (Auto) 0.74 H (0.11-0.59) K/uL Eos # (Auto) 0.09 (0-0.5) K/uL Baso # (Auto) 0.02 (0-0.2) K/uL Immature Gran # (Auto) 0.05 H (0.00-0.02) K/uL PT 11.9 (9.0-12.0) Seconds INR 1.2 H (0.9-1.1) APTT 31.0 (21.0-31.0) Seconds PTT Ratio 1.2 Sodium (136-145) mmol/L Potassium (3.5-5.1) mmol/L Chloride (98-107) mmol/L Carbon Dioxide (21-32) mmol/L Anion Gap (3-11) BUN (7-18) mg/dl Creatinine (0.6-1.2) mg/dl Est Cr Clr Drug Dosing ml/min Est GFR ( Amer) ml/min Est GFR (Non-Af Amer) ml/min BUN/Creatinine Ratio (10-20) Glucose (70-99) mg/dl Lactate (0.4-2.0) mmol/L Calcium (8.5-10.1) mg/dl Magnesium (1.8-2.4) mg/dl Total Bilirubin (0.2-1) mg/dl AST (15-37) U/L ALT (12-78) U/L Alkaline Phosphatase (45-117) U/L Troponin I (0-0.045) ng/ml Total Protein (6.4-8.2) gm/dl Albumin (3.4-5.0) gm/dl Globulin (2.5-4.0) gm/dl Albumin/Globulin Ratio (0.9-2) Procalcitonin 0.78 H (0-0.5) ng/ml Urine Color Urine Appearance (Clear) Urine pH (4.5-7.5) Ur Specific Arbon (1.000-1.030) Urine Protein (Negative) Urine Glucose (UA) (Negative) Urine Ketones (Negative) Urine Blood (Negative) Urine Nitrite (Negative) Urine Bilirubin (Negative) Urine Urobilinogen (Negative) Ur Leukocyte Esterase (Negative) Urine WBC (Auto) (0-5) /hpf Urine RBC (Auto) (0-4) /hpf U Hyaline Cast (Auto) (0-5) /lpf U Epithel Cells (Auto) (0-5) /lpf Urine Bacteria (Auto) (Negative) COVID-19 Eval Order SARS-CoV-2 (PCR) (Negative) 11/06/20 11/06/20 11/06/20 Range/Units 10:15 10:15 10:15 WBC (4.8-10.8) K/uL RBC (4.2-5.4) M/uL Hgb (12.0-16.0) g/dL Hct (37-47) % MCV (80-100) fL MCH (25-34) pg MCHC (32-36) g/dL RDW Std Deviation (36.4-46.3) fL RDW Coeff of Brian (11.5-14.5) % Plt Count (130-400) K/uL MPV (7.4-10.4) fL Immature Gran % (Auto) % Neut % (Auto) % Lymph % (Auto) % Cedar % (Auto) % Eos % (Auto) % Baso % (Auto) % Neut # (Auto) (1.4-6.5) K/uL Lymph # (Auto) (1.2-3.4) K/uL Cedar # (Auto) (0.11-0.59) K/uL Eos # (Auto) (0-0.5) K/uL Baso # (Auto) (0-0.2) K/uL Immature Gran # (Auto) (0.00-0.02) K/uL PT (9.0-12.0) Seconds INR (0.9-1.1) APTT (21.0-31.0) Seconds PTT Ratio Sodium 138 (136-145) mmol/L Potassium 4.3 (3.5-5.1) mmol/L Chloride 103 (98-107) mmol/L Carbon Dioxide 30 (21-32) mmol/L Anion Gap 5.0 (3-11) BUN 31 H (7-18) mg/dl Creatinine 1.63 H (0.6-1.2) mg/dl Est Cr Clr Drug Dosing 28.6 ml/min Est GFR ( Amer) 33.2 ml/min Est GFR (Non-Af Amer) 28.6 ml/min BUN/Creatinine Ratio 19.0 (10-20) Glucose 112 H (70-99) mg/dl Lactate 1.1 (0.4-2.0) mmol/L Calcium 8.5 (8.5-10.1) mg/dl Magnesium 2.3 (1.8-2.4) mg/dl Total Bilirubin 0.8 (0.2-1) mg/dl AST 18 (15-37) U/L ALT 18 (12-78) U/L Alkaline Phosphatase 97 (45-117) U/L Troponin I < 0.015 (0-0.045) ng/ml Total Protein 6.6 (6.4-8.2) gm/dl Albumin 2.5 L (3.4-5.0) gm/dl Globulin 4.1 H (2.5-4.0) gm/dl Albumin/Globulin Ratio 0.6 L (0.9-2) Procalcitonin (0-0.5) ng/ml Urine Color Urine Appearance (Clear) Urine pH (4.5-7.5) Ur Specific Arbon (1.000-1.030) Urine Protein (Negative) Urine Glucose (UA) (Negative) Urine Ketones (Negative) Urine Blood (Negative) Urine Nitrite (Negative) Urine Bilirubin (Negative) Urine Urobilinogen (Negative) Ur Leukocyte Esterase (Negative) Urine WBC (Auto) (0-5) /hpf Urine RBC (Auto) (0-4) /hpf U Hyaline Cast (Auto) (0-5) /lpf U Epithel Cells (Auto) (0-5) /lpf Urine Bacteria (Auto) (Negative) COVID-19 Eval Order SARS-CoV-2 (PCR) (Negative) 11/06/20 11/06/20 11/06/20 Range/Units 10:16 10:16 11:11 WBC (4.8-10.8) K/uL RBC (4.2-5.4) M/uL Hgb (12.0-16.0) g/dL Hct (37-47) % MCV (80-100) fL MCH (25-34) pg MCHC (32-36) g/dL RDW Std Deviation (36.4-46.3) fL RDW Coeff of Brian (11.5-14.5) % Plt Count (130-400) K/uL MPV (7.4-10.4) fL Immature Gran % (Auto) % Neut % (Auto) % Lymph % (Auto) % Cedar % (Auto) % Eos % (Auto) % Baso % (Auto) % Neut # (Auto) (1.4-6.5) K/uL Lymph # (Auto) (1.2-3.4) K/uL Cedar # (Auto) (0.11-0.59) K/uL Eos # (Auto) (0-0.5) K/uL Baso # (Auto) (0-0.2) K/uL Immature Gran # (Auto) (0.00-0.02) K/uL PT (9.0-12.0) Seconds INR (0.9-1.1) APTT (21.0-31.0) Seconds PTT Ratio Sodium (136-145) mmol/L Potassium (3.5-5.1) mmol/L Chloride (98-107) mmol/L Carbon Dioxide (21-32) mmol/L Anion Gap (3-11) BUN (7-18) mg/dl Creatinine (0.6-1.2) mg/dl Est Cr Clr Drug Dosing ml/min Est GFR ( Amer) ml/min Est GFR (Non-Af Amer) ml/min BUN/Creatinine Ratio (10-20) Glucose (70-99) mg/dl Lactate (0.4-2.0) mmol/L Calcium (8.5-10.1) mg/dl Magnesium (1.8-2.4) mg/dl Total Bilirubin (0.2-1) mg/dl AST (15-37) U/L ALT (12-78) U/L Alkaline Phosphatase (45-117) U/L Troponin I (0-0.045) ng/ml Total Protein (6.4-8.2) gm/dl Albumin (3.4-5.0) gm/dl Globulin (2.5-4.0) gm/dl Albumin/Globulin Ratio (0.9-2) Procalcitonin (0-0.5) ng/ml Urine Color Dark Yellow Urine Appearance Clear (Clear) Urine pH 7.0 (4.5-7.5) Ur Specific Arbon 1.016 (1.000-1.030) Urine Protein Trace H (Negative) Urine Glucose (UA) Negative (Negative) Urine Ketones Negative (Negative) Urine Blood Negative (Negative) Urine Nitrite Positive A (Negative) Urine Bilirubin Negative (Negative) Urine Urobilinogen Negative (Negative) Ur Leukocyte Esterase 3+ H (Negative) Urine WBC (Auto) >30 H (0-5) /hpf Urine RBC (Auto) 5-10 H (0-4) /hpf U Hyaline Cast (Auto) 1-5 (0-5) /lpf U Epithel Cells (Auto) 10-20 H (0-5) /lpf Urine Bacteria (Auto) 2+ H (Negative) COVID-19 Eval Order Covid19 at [facility] SARS-CoV-2 (PCR) NEGATIVE (Negative) Administered Medications Aspirin (Aspirin 81 Mg Ectab) 81 mg PO QAM MALIK Stop: 12/06/20 15:23 Last Admin: 11/06/20 16:25 Dose: 81 mg Documented by: [id number] Morphine Sulfate (Morphine Sulfate 4 Mg/Ml 1 Ml Carp\Vial) 4 mg IV Q30M PRN PRN Reason: Pain Stop: 11/20/20 09:52 Last Admin: 11/06/20 12:53 Dose: 4 mg Documented by: [id number] Admin: 11/06/20 11:20 Dose: 4 mg Documented by: [id number] Discontinued Medications Sodium Chloride (Nss 1000ml) 1,000 mls @ 999 mls/hr IV .Q1H1M MALIK Stop: 11/06/20 10:45 Last Infusion: 11/06/20 12:34 Dose: 0 mls/hr Documented by: [id number] Admin: 11/06/20 11:18 Dose: 999 mls/hr Documented by: [id number] Piperacillin Sod/Tazobactam Sod (Zosyn) 4.5 gm in 120 mls @ 240 mls/hr IV NOW ONE Stop: 11/06/20 10:14 Last Infusion: 11/06/20 12:08 Dose: 0 mls/hr Documented by: [id number] Admin: 11/06/20 11:18 Dose: 240 mls/hr Documented by: [id number] Ondansetron HCl (Ondansetron Inj 2 Mg/Ml 2 Ml Vial) 4 mg IV NOW STA Stop: 11/06/20 09:54 Last Admin: 11/06/20 11:20 Dose: 4 mg Documented by: [id number] Imaging Data Radiologist's Impression: Knee X-Ray 11/06/20 09:45 XR knee LT 1 or 2V routine HISTORY: 85 years-old Female pain, swelling acute pain and swelling of the left knee COMPARISON: Left knee radiographs 03/15/2020 TECHNIQUE: 2 views of the left knee FINDINGS: Unchanged lateral bowing of the distal femoral diaphysis with linear band of sclerosis suggestive of chronic fracture. Moderate medial and patellofemoral with mild to moderate lateral compartment osteoarthritis with moderate size joint effusion. No acute fracture or dislocation. Diffuse soft tissue prominence of the imaged lower extremity. Arterial calcifications. IMPRESSION: 1. Moderate joint effusion without acute fracture or dislocation. 2. Chronic findings as above. ACT 112: Negative or not required by law. The above report was generated using voice recognition software. It may contain grammatical, syntax or spelling errors. Electronically signed by: Jay Starr M.D. 11/06/2020 10:08 AM Discharge Plan Visit Data Chief Complaint: Knee Injury/Pain Stated Complaint: knee pain/ cellulitis ED Provider: Geoffrey Frankel Discharge Problem: Cellulitis, Left leg pain, Left knee pain, Leukocytosis Patient Disposition: Admitted As Inpatient Condition: Fair Discharge Instructions Interventions: ED Discharge Assessment Last Done: 11/06/20 14:40
--- NOTE | 2020-11-06 10:09 | XRay Report ---
XR knee LT 1 or 2V routine HISTORY: 85 years-old Female pain, swelling acute pain and swelling of the left knee COMPARISON: Left knee radiographs 03/15/2020 TECHNIQUE: 2 views of the left knee FINDINGS: Unchanged lateral bowing of the distal femoral diaphysis with linear band of sclerosis suggestive of chronic fracture. Moderate medial and patellofemoral with mild to moderate lateral compartment osteoa rthritis with moderate size joint effusion. No acute fracture or dislocation. Diffuse soft tissue pro minence of the imaged lower extremity. Arterial calcifications. IMPRESSION: 1. Moderate joint effusion without acute fracture or dislocation. 2. Chronic findings as above. ACT 112: Negative or not required by law. The above report was generated using voice recognition software. It may contain grammatical, syntax o r spelling errors. Electronically signed by: Jay Starr M.D. 11/06/2020 10:08 AM
[2020-11-06 11:00] LABS: Basophils # (auto) 0.02 K/uL (0-0.2); Basophils % (auto) 0.2 %; Eosinophils # (auto) 0.09 K/uL (0-0.5); Eosinophils % (auto) 0.7 %; Hemoglobin 9.7 g/dL (12.0-16.0); Immature Granulocytes # (auto) 0.05 K/uL (0.00-0.02); Immature Granulocytes % (auto) 0.4 %; Lymphocytes # (auto) 1.91 K/uL (1.2-3.4); Lymphocytes % (auto) 15.3 %; Mean Corpuscular Hemoglobin 31.1 pg (25-34); Mean Corpuscular Hgb Conc 32.3 g/dL (32-36); Mean Corpuscular Volume 96.2 fL (80-100); Mean Platelet Volume 10.8 fL (7.4-10.4); Monocytes # (auto) 0.74 K/uL (0.11-0.59); Monocytes % (auto) 5.9 %; Neutrophils # (auto) 9.65 K/uL (1.4-6.5); Neutrophils % (auto) 77.5 %; Platelet Count 165 K/uL (130-400); RDW Coefficient of Variation 14.5 % (11.5-14.5); RDW Standard Deviation 51.3 fL (36.4-46.3); Red Blood Count 3.12 M/uL (4.2-5.4); White Blood Count 12.46 K/uL (4.8-10.8)
[2020-11-06 11:11] LABS: INR 1.2 (0.9-1.1); Partial Thromboplastin Ratio 1.2; Prothrombin Time 11.9 Seconds (9.0-12.0)
[2020-11-06] MEDS: MoRPHine SULFATE 4 MG/ML 1 ML CARP\\VIAL IV PRN ×2 (11:20→12:53)
[2020-11-06 11:24] LABS: Albumin Level 2.5 gm/dl (3.4-5.0); Calcium 8.5 mg/dl (8.5-10.1); Creatinine Clr Calc Pharmacy 28.6 ml/min; Est GFR (African American) 33.2 ml/min; Est GFR (Non-African American) 28.6 ml/min; Magnesium 2.3 mg/dl (1.8-2.4); Potassium 4.3 mmol/L (3.5-5.1)
[2020-11-06 11:27] LABS: Albumin Globulin Ratio 0.6 (0.9-2); Bilirubin,Total 0.8 mg/dl (0.2-1); Globulin 4.1 gm/dl (2.5-4.0); Total Protein 6.6 gm/dl (6.4-8.2)
[2020-11-06 11:28] LABS: Appearance Urine Clear (Clear); Bacteria Urine Automated 2+ (Negative); Bilirubin Urine Negative (Negative); Blood Urine Negative (Negative); Color Urine Dark Yellow; Glucose Urine UA Negative (Negative); Ketones Urine Negative (Negative); Leukocyte Esterase Urine 3+ (Negative); Nitrite Urine Positive (Negative); Protein Urine Trace (Negative); Specific Gravity Urine 1.016 (1.000-1.030); Urobilinogen Urine Negative (Negative); WBC Urine Automated >30 /hpf (0-5)
--- NOTE | 2020-11-06 12:17 | Electrocardiogram Report ---
Test Reason : Blood Pressure : / mmHG Vent. Rate : 093 BPM Atrial Rate : 093 BPM P-R Int : 152 ms QRS Dur : 098 ms QT Int : 374 ms P-R-T Axes : 068 -01 043 degrees QTc Int : 465 ms Poor data quality, interpretation may be adversely affected Sinus rhythm with Premature atrial complexes Low voltage QRS Poor R wave progression, consider anterior MO vs. lead placement vs. LVH Borderline ECG When compared with ECG of 10-MAY-2020 17:25, Premature atrial complexes are now Present Confirmed by Alonso Hand ([id number]) on 11/06/2020 12:16:55 PM Referred By: ED Confirmed By:Alonso Hand
--- NOTE | 2020-11-06 12:18 | History & Physical Report ---
Date of Service November 06, 2020 Assessment & Plan (1) Cellulitis, leg: Plan: Dana is an 85-year-old female with a past medical history of severe left knee osteoarthritis, left knee septic arthritis with Pseudomonas, chronic venous stasis laterally, hypertension, CKD with acute renal failure 2/2 ATN following cefepime treatment resolved, and diabetes mellitus who presents with 1 week of worsening swelling, warmth, erythema of her left lower extremity and increased a nkle pain. Left lower extremity Nonpurulent Diabetic cellulitis Warm, demarcated, increased swelling of left lower extremity Patient with history of Pseudomonas knee infection in the past with ATN and acute kidney failure requiring dialysis following 5-6 weeks of treatment. Continue Zosyn every 6 hours,narrow if clinically well with no signs of joint/bone involvement eval below Knee is not warm, swollen, or tender to palpation. Patient has some pain with flexion/extension reportedly at normal baseline consistent with her known severe OA. Plain film of knee Moderate medial and patellofemoral with mild to moderate lateral compartment osteoarthritis with moderate size joint effusion. No acute fracture or dislocation. Diffuse soft tissue prominence of the imaged lower extremity. Arterial calcifications. Left ankle with increased pain and decreased range of motion. Plain film pending, Intact range of motion with pain. If increase suspicion for septic joint will consult orthopedics (2) Hypertension: Plan: Normotensive/mildly hypotensive on admission Historical, not on home antihypertensives. Patient poor historian of medications Vitals per protocol Continue aspirin 81 mg daily (3) Generalized osteoarthritis of multiple sites: Plan: Tylenol 650 mg every 4 hours as needed (4) Hyperlipidemia: Plan: Continue aspirin 81 mg daily No home statin (5) Hypothyroidism: Plan: Continue Synthroid 75 mcg daily Outpatient TSH normal within last 3 months (6) Peripheral neuropathy: Plan: Continue gabapentin 200 mg nightly (7) Retinal detachment: Plan: Vision at baseline, no acute change Noted, no acute management at this time (8) Chronic venous insufficiency: Plan: Chronic, bilateral Elevate legs at least 20 minutes 3 times daily May use light compression of right lower extremity Continue Lasix daily No JVD, no signs of cardiogenic fluid overload (9) Anemia: Plan: Hemoglobin 9.7 No personal or family history of colorectal cancer. Patient has deferred colon cancer screening and colonoscopies in the past after risk/benefit discussion. She reports she has needed IV iron in the past, denies any active bleeding CBC daily, MCV 96 (10) Diabetes mellitus: Plan: Last A1c 6.4% - Admitting BSG 112 On 70/30 home insulin 50 units BID Converted to basal bolus 18 units twice daily Lantus, SSI correction factor 1:25, ratio 1:8. Glucose checks AC/at bedtime (11) DVT prophylaxis: Plan: Review prophylaxis: Lovenox Diet: Diabetic diet Disposition: Medical/surgical Status: DNR/DNI, discussed with patient History of Present Illness Chief Complaint: Leg pain, ankle pain Primary Care Provider: Narinder Caldwell MD Dana is an 85-year-old female with a past medical history of severe left knee osteoarthritis, left knee septic arthritis with Pseudomonas, chronic venous stasis laterally, hypertension, CKD with acute renal failure 2/2 ATN following cefepime treatment resolved, and diabetes mellitus who presents with 1 week of worsening swelling, warmth, erythema of her left lower extremity and increased ankle pain. Dana reports her symptoms began about 1 week ago when her left leg began to get more red and warm with redness spreading up from her left leg towards the knee and thigh. She reports she had some chills, but no night sweats does not think she had a fever. She reports she has not been able to put weight on her left leg due to pain at her ankle. She reports that she has difficulty controlling her left leg at baseline due to congenital hip problems but is normally able to ambulate with a walker at home. She is able to bend and extend her knee, reports she has pain at baseline from arthritis but this has not changed. She has had increased pain in her ankle with dorsiflexion/plantarflexion which is new. She endorses increased swelling of her left extremity on top of the normal bilateral extremity swelling. Denies open ulcers, notes that sometimes fluid will be from her legs at baseline. She took her Synthroid this morning, otherwise has not taken medications today. No recent sick contacts. 5/10 achy/sharp pain in the L ankle, denies calf tenderness. History of left knee septic arthritis with Pseudomonas, treated with cefepime which was discontinued following the development of ATN and kidney failure which resolved. Patient reports distant history of MRSA, with no recent MRSA infections in the last year. Medical History: Reviewed Medications: Reviewed Surgical History: Reviewed Allergies: Reviewed. Pertinent positive ATN following cefepime administration, superficial skin reaction to topical sulfa in the past. Social History:Denies tobacco, alcohol, recreational drug use. Lives at home with her , ambulates with a walker. Has family that helps her at home. Code Status:DNR/DNI, discussed with patient. Allergies Allergy/AdvReac Type Severity Reaction Status Date / Time cefepime Allergy Severe Acute Verified 11/06/20 10:23 interstitial nephritis Sulfa (Sulfonamide Allergy Intermediate BLISTERS Verified 11/06/20 10:23 Antibiotics) Home Medications Medication Instructions Recorded Confirmed Type aspirin 81 mg tablet,delayed 81 mg PO QAM 11/09/18 11/06/20 History release (Aspirin Low Dose) cholecalciferol (vitamin D3) 50 2,000 unit PO 3XWK 11/09/18 11/06/20 History mcg (2,000 unit) capsule (Vitamin D3) multivitamin,tx-minerals 1 cap PO QAM 11/09/18 11/06/20 History (Multi-Vitamin HP/Minerals) omega 6-utd-ohq-fish oil 1,000 mg 1 cap PO QAM cap 11/09/18 11/06/20 History (120 mg-180 mg) capsule (Fish Oil) ascorbic acid (vitamin C) 500 mg 500 mg PO DAILY 11/18/18 11/06/20 History tablet (Vitamin C) insulin human U-100 NPH-regulr See Rx Instructions SQ BID ml 01/18/20 11/06/20 History 70-30 mix 100 unit/mL subcutaneous susp furosemide 80 mg tablet 80 mg PO QAM #90 tab 06/22/20 11/06/20 Rx gabapentin 100 mg capsule 200 mg PO HS #180 cap 06/29/20 11/06/20 Rx levothyroxine 75 mcg tablet 75 mcg PO QAM #90 tab 07/19/20 11/06/20 Rx acetaminophen 500 mg tablet 1,000 mg PO Q6H PRN 11/06/20 11/06/20 History (Tylenol Extra Strength) Past Med/Surg History Medical History Acute kidney injury Afib Cellulitis of right leg Central venous catheter in place Chronic back pain Chronic kidney disease, stage III (moderate) Congenital dislocation of hip Degenerative disc disease Diabetes mellitus IDDM DNR (do not resuscitate) History of breast cancer History of septic arthritis Obesity Osteoarthritis Pancreatitis SEPTEMBER 2018 Peripheral neuropathy BILATERAL FEET Pressure ulcer of right heel, stage 3 Stage III pressure ulcer of right buttock Surgical History History of cataract surgery BILATERAL History of cholecystectomy History of detached retina repair LEFT History of hip surgery LEFT HIP DISLOCATION SURGERY A CHILD (UNSUCCESSFUL) History of mastectomy RIGHT BREAST WITH 1 LYMPH NODE REMOVAL History of thyroidectomy REMOVAL OF GOITER Hx of tonsillectomy Status post debridement hip open wound Family History Unknown Cancer Father Bone cancer Mother Diabetes Daughter Diabetes Breast cancer Son Diabetes Sister Diabetes Grandmother (Paternal) Breast cancer Denies family history of Ovarian cancer Prostate cancer Myocardial infarction Colorectal cancer Social History Smoking Status: Never smoker Second Hand Exposure: No; Hx Alcohol Use: No Hx Substance Use: No Preferred Language: Setswana Communication Ability: Effective Visual Impairment: No Limitations Manager Room Required: No Beliefs That Will Affect Care: None marital status: Current Living Situation: Spouse Feels Safe at Home: Yes Seatbelt Use: always Assistive Devices: Denture - Upper, Denture - Lower, Glasses and Wheelchair Review of Systems Review of Systems: Constitutional: See HPI Eyes: 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 Decreased acuity in right eye at baseline. No acute change in vision per patient. ENT: Denies ear pain, sore throat, sinus pain Cardiovascular: Denies Chest pain, chest pressure, palpitations. Chronic venous stasis at baseline. Respiratory: Denies shortness of breath, sputum production, difficulty breathing. Endorses some intermittent baseline cough, no recent change. 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 Endorses acute changes noted in HPI. Integumentary: The HPI Neurological: Denies headache. Endoreses neuropathy at baseline, no change in numbness tingling Physical Exam 2 Physical Exam: General: A&Ox3. NAD. Cooperative.Obese. HEENT: Atraumatic, normocephalic. Pupils equal and reactive to light and accommodation. Visual acuity nearly absent in left eye, diminished acuity in right eye. EOM intact without nystagmus. Pulm: CTAB A&P. -wheezes, -rales, -rhonchi. Symmetrical chest rise. No increase work of breathing. No respiratory distress. Cardiac: RRR, Soft ii/vi systolic murmur. Radial pulses intact and symmetrical.No JVD. Abdominal: Nontender, nondistended, soft. BS present. Extremities: Bilateral venous stasis with scale. Left leg with increased redness, warmth extending from the foot/ankle towards the knee and to the distal lateral portion of the upper left extremity. Knee flexion/extension on left leg intact, painful per patient but with no acute change compared to baseline. Left ankle plantarflexion/dorsiflexion limited past approximately 20 degrees by acute pain. Sensation to soft touch in feet intact bilaterally. PT pulse intact bilaterally. Popliteal pulses intact bilaterally. Results & Data Results & Data ([facility]) Vital Signs (Past 12 Hours) Vital Signs Temp Pulse Pulse Resp BP BP Pulse Ox 11/06/20 11:23 103 H 18 117/57 L 94 11/06/20 10:52 105 H 16 134/69 93 11/06/20 09:36 95 11/06/20 09:30 37.1 C 93 H 20 132/69 95 Laboratory Results Abnormal lab results 11/06/20 11/06/20 11/06/20 Range/Units 10:15 10:15 10:15 WBC 12.46 H (4.8-10.8) K/uL RBC 3.12 L (4.2-5.4) M/uL Hgb 9.7 L (12.0-16.0) g/dL Hct 30.0 L (37-47) % RDW Std Deviation 51.3 H (36.4-46.3) fL MPV 10.8 H (7.4-10.4) fL Neut # (Auto) 9.65 H (1.4-6.5) K/uL [place] # (Auto) 0.74 H (0.11-0.59) K/uL Immature Gran # (Auto) 0.05 H (0.00-0.02) K/uL INR 1.2 H (0.9-1.1) BUN (7-18) mg/dl Creatinine (0.6-1.2) mg/dl Glucose (70-99) mg/dl Albumin (3.4-5.0) gm/dl Globulin (2.5-4.0) gm/dl Albumin/Globulin Ratio (0.9-2) Procalcitonin 0.78 H (0-0.5) ng/ml Urine Protein (Negative) Urine Nitrite (Negative) Ur Leukocyte Esterase (Negative) Urine WBC (Auto) (0-5) /hpf Urine RBC (Auto) (0-4) /hpf U Epithel Cells (Auto) (0-5) /lpf Urine Bacteria (Auto) (Negative) 11/06/20 11/06/20 Range/Units 10:15 11:11 WBC (4.8-10.8) K/uL RBC (4.2-5.4) M/uL Hgb (12.0-16.0) g/dL Hct (37-47) % RDW Std Deviation (36.4-46.3) fL MPV (7.4-10.4) fL Neut # (Auto) (1.4-6.5) K/uL [place] # (Auto) (0.11-0.59) K/uL Immature Gran # (Auto) (0.00-0.02) K/uL INR (0.9-1.1) BUN 31 H (7-18) mg/dl Creatinine 1.63 H (0.6-1.2) mg/dl Glucose 112 H (70-99) mg/dl Albumin 2.5 L (3.4-5.0) gm/dl Globulin 4.1 H (2.5-4.0) gm/dl Albumin/Globulin Ratio 0.6 L (0.9-2) Procalcitonin (0-0.5) ng/ml Urine Protein Trace H (Negative) Urine Nitrite Positive A (Negative) Ur Leukocyte Esterase 3+ H (Negative) Urine WBC (Auto) >30 H (0-5) /hpf Urine RBC (Auto) 5-10 H (0-4) /hpf U Epithel Cells (Auto) 10-20 H (0-5) /lpf Urine Bacteria (Auto) 2+ H (Negative) Diagnostic Findings Knee X-Ray 11/06/20 09:45 XR knee LT 1 or 2V routine HISTORY: 85 years-old Female pain, swelling acute pain and swelling of the left knee COMPARISON: Left knee radiographs 03/15/2020 TECHNIQUE: 2 views of the left knee FINDINGS: Unchanged lateral bowing of the distal femoral diaphysis with linear band of sclerosis suggestive of chronic fracture. Moderate medial and patellofemoral with mild to moderate lateral compartment osteoarthritis with moderate size joint effusion. No acute fracture or dislocation. Diffuse soft tissue prominence of the imaged lower extremity. Arterial calcifications. IMPRESSION: 1. Moderate joint effusion without acute fracture or dislocation. 2. Chronic findings as above. ACT 112: Negative or not required by law. The above report was generated using voice recognition software. It may contain grammatical, syntax or spelling errors. Electronically signed by: Jay Starr M.D. 11/06/2020 10:08 AM Medications Administered Home Medications aspirin 81 mg tablet,delayed release (Aspirin Low Dose) 81 mg PO QAM 11/09/18 [History Confirmed 11/06/20] cholecalciferol (vitamin D3) 50 mcg (2,000 unit) capsule (Vitamin D3) 2,000 unit PO 3XWK 11/09/18 [History Confirmed 11/06/20] multivitamin,tx-minerals (Multi-Vitamin HP/Minerals) 1 cap PO QAM 11/09/18 [History Confirmed 11/06/20] omega 6-txn-txl-fish oil 1,000 mg (120 mg-180 mg) capsule (Fish Oil) 1 cap PO QAM cap 11/09/18 [History Confirmed 11/06/20] ascorbic acid (vitamin C) 500 mg tablet (Vitamin C) 500 mg PO DAILY 11/18/18 [History Confirmed 11/06/20] insulin human U-100 NPH-regulr 70-30 mix 100 unit/mL subcutaneous susp See Rx Instructions SQ BID ml 01/18/20 [History Confirmed 11/06/20] furosemide 80 mg tablet 80 mg PO QAM #90 tab 06/22/20 [Rx Confirmed 11/06/20] gabapentin 100 mg capsule 200 mg PO HS #180 cap 06/29/20 [Rx Confirmed 11/06/20] levothyroxine 75 mcg tablet 75 mcg PO QAM #90 tab 07/19/20 [Rx Confirmed 11/06/20] acetaminophen 500 mg tablet (Tylenol Extra Strength) 1,000 mg PO Q6H PRN 11/06/20 [History Confirmed 11/06/20] Active Medications Miscellaneous Information (Piperacill/Tazobac Consult Active) 1 ea N/A UD PRN PRN Reason: Consult Stop: 12/06/20 09:44 Morphine Sulfate (Morphine Sulfate 4 Mg/Ml 1 Ml Carp\Vial) 4 mg IV Q30M PRN PRN Reason: Pain Stop: 11/20/20 09:52 Last Admin: 11/06/20 11:20 Dose: 4 mg Documented by: Code Status & VTE Plan Code Status DNR/DNI PG Care Time/CCT Total # of Minutes Spent Total Time Spent with Patient: Total time spent is greater than 50% in coordination of care (as documented) at patient's floor/unit and/or counseling patient: 45 minutes Coding Level of Care Code 23317 Initial Inpt Care Lvl 3 Diagnoses Cellulitis, leg L03.119 Hypertension I10 Generalized osteoarthritis of multiple sites M15.9 Hyperlipidemia E78.5 Hypothyroidism E03.9 Peripheral neuropathy G62.9 Retinal detachment H33.20 Chronic venous insufficiency I87.2 Anemia D64.9 Anemia type: unspecified type Diabetes mellitus E11.9 DVT prophylaxis Z29.9 (1) Anemia Anemia type: unspecified type Qualified Code(s): D64.9 - Anemia, unspecified
[2020-11-06] MEDS ORDERED: PHARMACY GLYCEMIC MGMT CONSULT STA (12:37)
[2020-11-06] MEDS ORDERED: PHARMACY GLYCEMIC MGMT CONSULT SCH (14:00)
[2020-11-06] MEDS ORDERED: GLUCOSE 10 TABS/TUBE PO PRN ×2 (15:24→15:30)
[2020-11-06] MEDS ORDERED: CARBOHYDRATES FOR HYPOGLYCEMIA PO PRN ×2 (15:24→15:30)
[2020-11-06] MEDS ORDERED: DEXTROSE 50% 50 ML SYRINGE IV PRN ×2 (15:24→15:30)
[2020-11-06] MEDS ORDERED: GLUCAGON FOR INJ 1 MG VIAL SQ PRN (15:24)
[2020-11-06] MEDS ORDERED: ACETAMINOPHEN HOME PACK 500 MG TABLET PO PRN (15:24)
[2020-11-06] MEDS ORDERED: GLUCOSE 40% GEL 15 GM TUBE PO PRN ×2 (15:24→15:30)
[2020-11-06] MEDS ORDERED: ONDANSETRON INJ 2 MG/ML 2 ML VIAL IV PRN (15:24)
[2020-11-06] MEDS ORDERED: GLUCAGON FOR INJ 1 MG VIAL IM PRN (15:30)
--- NOTE | 2020-11-06 16:00 | XRay Report ---
XR foot LT min 3V routine HISTORY: 85 years-old Female ?L osteo chronic left foot pain COMPARISON: None TECHNIQUE: 3 views of the left foot FINDINGS: Demineralized appearance of the bones. Diffuse soft tissue prominence with advanced multifocal osteoa rthritis and arterial calcifications. Soft tissue swelling is most pronounced within the dorsal foref oot. No acute fracture or dislocation. Prominent subcortical cystic changes of the first metatarsal h ead. No definite acute osseous erosions identified. IMPRESSION: Soft tissue swelling without acute fracture or definite acute osseous erosion identified. ACT 112: Negative or not required by law. The above report was generated using voice recognition software. It may contain grammatical, syntax o r spelling errors. Electronically signed by: Jay Starr M.D. 11/06/2020 3:59 PM
--- NOTE | 2020-11-06 16:10 | Pharmacy Report ---
Pharmacy Glycemic Short Note 2 - Date of Service November 06, 2020 - Glycemic Short BSG Results (Last 24 hours): 11/06/20 10:15 Glucose 112 H OUTPATIENT ANTIDIABETIC REGIMEN: * Novolin 70/30 30-40 units BID * A1c = 6.4% 07/05/20 ASSESSMENT: * Type 2 diabetic admitted for LLE cellulitis possible septic joint * Patient is known to the Glycemic Control Service from prior admissions * Will convert patient to SQ basal/bolus regimen as split-mixed insulins like 70/30 are difficult to titrate and are prone to hypoglycemia when used in the inpatient setting and changing PO status * Will begin with relatively low doses of basal insulin given current BSGs in low 100s after having received on 70/30 insulin this AM. * Novolog doses will be based upon prior admission data when not receiving steroids PLAN FOR INPATIENT GLYCEMIC CONTROL: * Check A1c with next lab draw * Basal insulin * Lantus 8 units SQ BID * Bolus insulin * NovoLog per scale ACHS or Q6hrs while NPO * Goal Range: Low 110 mg/dL - High 140 mg/dL * Correction Factor: 25 mg/dL/unit * Nutritional / Prandial insulin per carb ratio of 1 unit per 8 grams CHO consumed PLAN FOR DISCHARGE: * to be determined
[2020-11-06] MEDS: ASPIRIN 81 MG ECTAB PO SCH (16:25)
[2020-11-06] MEDS ORDERED: INSULIN ASPART 100 UNITS/ML 3 ML PEN SC SCH (16:30)
[2020-11-06] MEDS: PIPERACILLIN/TAZOBACTAM 3.375 GM in DEXTROSE 5% 100 ML IV SCH (17:26)
[2020-11-06] MEDS: INSULIN ASPART 100 UNITS/ML 3 ML PEN SC SCH ×2 (18:46→21:47)
[2020-11-06] MEDS ORDERED: INSULIN GLARGINE SOLOSTAR 100 UNITS/ML 3 ML PEN SC SCH (21:00)
[2020-11-06] MEDS: ENOXAPARIN INJ 40 MG/0.4 ML SYR SQ SCH (21:50)
[2020-11-06] MEDS: GABAPENTIN 100 MG CAP PO SCH (21:50)
[2020-11-06] MEDS: INSULIN GLARGINE SOLOSTAR 100 UNITS/ML 3 ML PEN SC SCH (21:51)
[2020-11-07] MEDS: PIPERACILLIN/TAZOBACTAM 3.375 GM in DEXTROSE 5% 100 ML IV SCH ×2 (01:04→08:12)
[2020-11-07] MEDS: LEVOTHYROXINE SODIUM 75 MCG TABLET PO SCH (05:24)
[2020-11-07 06:08] LABS: Basophils # (auto) 0.01 K/uL (0-0.2); Basophils % (auto) 0.1 %; Eosinophils # (auto) 0.18 K/uL (0-0.5); Eosinophils % (auto) 1.7 %; Hemoglobin 9.4 g/dL (12.0-16.0); Immature Granulocytes # (auto) 0.03 K/uL (0.00-0.02); Immature Granulocytes % (auto) 0.3 %; Lymphocytes # (auto) 1.86 K/uL (1.2-3.4); Lymphocytes % (auto) 17.1 %; Mean Corpuscular Hemoglobin 31.5 pg (25-34); Mean Corpuscular Hgb Conc 32.4 g/dL (32-36); Mean Corpuscular Volume 97.3 fL (80-100); Mean Platelet Volume 10.7 fL (7.4-10.4); Monocytes # (auto) 0.88 K/uL (0.11-0.59); Monocytes % (auto) 8.1 %; Neutrophils # (auto) 7.92 K/uL (1.4-6.5); Neutrophils % (auto) 72.7 %; Platelet Count 173 K/uL (130-400); RDW Coefficient of Variation 14.5 % (11.5-14.5); RDW Standard Deviation 52.1 fL (36.4-46.3); Red Blood Count 2.98 M/uL (4.2-5.4); White Blood Count 10.88 K/uL (4.8-10.8)
[2020-11-07 06:49] LABS: BUN Creatinine Ratio 18.1 (10-20); Calcium 8.1 mg/dl (8.5-10.1); Creatinine Clr Calc Pharmacy 30.1 ml/min; Est GFR (African American) 33.7 ml/min; Est GFR (Non-African American) 29.1 ml/min; Potassium 4.3 mmol/L (3.5-5.1)
--- NOTE | 2020-11-07 07:01 | Ultrasound Report ---
US venous doppler LE LT CLINICAL HISTORY: r/o LLE dvt COMPARISON STUDY: March 14, 2020 FINDINGS: Real-time and color flow Doppler imaging were performed. Flow was seen within the femoral, popliteal and calf veins with no intraluminal thrombus demonstrated. The saphenous vein is patent. Visualization of the calf veins is limited due to subcutaneous edema Multiple lymph nodes within groin region are seen, largest is measuring 2.6 x 1.3 x 2.1 mm in size. IMPRESSION: No evidence of deep venous thrombosis. ACT 112: Negative or not required by law. The above report was generated using voice recognition software. It may contain grammatical, syntax o r spelling errors. Electronically signed by: Natasha Oshea DO 11/07/2020 7:00 AM
[2020-11-07 08:05] LABS: Estimated Average Glucose 154 mg/dl
[2020-11-07] MEDS: ASPIRIN 81 MG ECTAB PO SCH (08:06)
[2020-11-07] MEDS: CHOLECALCIFEROL 1,000 UNITS 25 MCG TAB PO SCH (08:06)
[2020-11-07] MEDS: ASCORBIC ACID 500 MG TAB PO SCH (08:06)
[2020-11-07] MEDS: FUROSEMIDE 80 MG TAB PO SCH (08:06)
[2020-11-07] MEDS: INSULIN GLARGINE SOLOSTAR 100 UNITS/ML 3 ML PEN SC SCH ×2 (09:14→21:45)
[2020-11-07] MEDS: INSULIN ASPART 100 UNITS/ML 3 ML PEN SC SCH ×4 (09:15→21:44)
--- NOTE | 2020-11-07 14:50 | Hospitalist Progress Note ---
Date of Service November 07, 2020 Assessment & Plan (1) Cellulitis, leg: Plan: Dana is an 85-year-old female with a past medical history of severe left knee osteoarthritis, left knee septic arthritis with Pseudomonas, chronic venous stasis laterally, hypertension, CKD with acute renal failure 2/2 ATN following cefepime treatment resolved, and diabetes mellitus who presents with 1 week of worsening swelling, warmth, erythema of her left lower extremity and increased a nkle pain. Left lower extremity Nonpurulent Diabetic cellulitis Warm, demarcated, increased swelling of left lower extremity Patient with history of Pseudomonas knee infection in the past with ATN and acute kidney failure requiring dialysis following 5-6 weeks of treatment. Continue Zosyn every 6 hours, low grade temp today Knee is not warm, swollen, or tender to palpation. Patient has some pain with flexion/extension reportedly at normal baseline consistent with her known severe OA. Plain film of knee Moderate medial and patellofemoral with mild to moderate lateral compartment osteoarthritis with moderate size joint effusion. No acute fracture or dislocation. Diffuse soft tissue prominence of the imaged lower extremity. Arterial calcifications. Left ankle with increased pain and decreased range of motion. Plain film with swelling but no bone involvement Intact range of motion with pain venous doppler neg or DVT (2) Hypertension: Plan: Normotensive/hypertensive today Historical, not on home antihypertensives. Patient poor historian of medications Vitals per protocol Continue aspirin 81 mg daily (3) Generalized osteoarthritis of multiple sites: Plan: Tylenol 650 mg every 4 hours as needed (4) Hyperlipidemia: Plan: Continue aspirin 81 mg daily No home statin (5) Hypothyroidism: Plan: Continue Synthroid 75 mcg daily Outpatient TSH normal within last 3 months (6) Peripheral neuropathy: Plan: Continue gabapentin 200 mg nightly (7) Retinal detachment: Plan: Vision at baseline, no acute change Noted, no acute management at this time (8) Chronic venous insufficiency: Plan: Chronic, bilateral Elevate legs at least 20 minutes 3 times daily May use light compression of right lower extremity Continue Lasix daily No JVD, no signs of cardiogenic fluid overload (9) Anemia: Plan: Hemoglobin 9.7 No personal or family history of colorectal cancer. Patient has deferred colon cancer screening and colonoscopies in the past after risk/benefit discussion. She reports she has needed IV iron in the past, denies any active bleeding CBC daily, MCV 96 (10) Diabetes mellitus: Plan: Last A1c 6.4% - Admitting BSG 112 On 70/30 home insulin 50 units BID Converted to basal bolus 18 units twice daily Lantus, SSI correction factor 1:25, ratio 1:8. Glucose checks AC/at bedtime (11) DVT prophylaxis: Plan: Review prophylaxis: Lovenox Diet: Diabetic diet Disposition: Medical/surgical Status: DNR/DNI, discussed with patient Admission and Anticipated Discharge Date Admission Date: November 06, 2020 Subjective patient says her legs look similar to baseline left leg always a little more swollen they are red today, warm but not too hot reviewed chart she is eating well, breathing well low grade temperature Review of Systems Review of Systems: All systems reviewed & are unremarkable except as noted in Subjective Constitutional: + fever, + fatigue and + weakness; no chills and no sweats Respiratory: no cough and no dyspnea Cardiovascular: + edema; no chest pain Gastrointestinal: no abdominal pain, no nausea, no vomiting, no constipation and no diarrhea/loose stools Integumentary: + rash and + dry skin Physical Exam Constitutional: well developed, + morbidly obese and comfortable; no acute distress Neck: trachea midline, no thyromegaly Respiratory: normal respiratory effort, lungs clear to auscultation (diminished in bases) Cardiovascular: Rate/Rhythm: regular rate and regular rhythm Heart Sounds: normal S1 and normal S2; no murmur Extremities: normal capillary refill and + edema Gastrointestinal (Abdomen): normal bowel sounds, soft, nontender, no hepatosplenomegaly Musculoskeletal: no cyanosis or clubbing, extremities motor strength 5/5 Skin: normal turgor, + rash, + crusts, + dry skin and + erythema (venous stasis changes bilaterally, worse on left) Neurologic: CN's II-XI intact bilaterally, normal sensation to monofilament, moves all extremities and awake; no focal motor deficits and not confused Results & Data Results & Data ([facility]) Vital Signs (Past 12 Hours) Vital Signs Temp Pulse Resp BP Pulse Ox 11/07/20 08:15 16 11/07/20 07:09 36.9 C 80 16 110/63 96 Laboratory Results Laboratory Results - last 24 hr 11/06/20 11/06/20 11/06/20 10:15 17:07 20:50 WBC RBC Hgb Hct MCV MCH MCHC RDW Std Deviation RDW Coeff of Brian Plt Count MPV Immature Gran % (Auto) Neut % (Auto) Lymph % (Auto) [place] % (Auto) Eos % (Auto) Baso % (Auto) Neut # (Auto) Lymph # (Auto) [place] # (Auto) Eos # (Auto) Baso # (Auto) Immature Gran # (Auto) Sodium Potassium Chloride Carbon Dioxide Anion Gap BUN Creatinine Est Cr Clr Drug Dosing Est GFR ( Amer) Est GFR (Non-Af Amer) BUN/Creatinine Ratio Glucose POC Glucose 199 H 226 H Estimat Average Glucose Hemoglobin A1c Calcium Troponin I < 0.015 11/07/20 11/07/20 11/07/20 05:43 05:43 05:43 WBC 10.88 H RBC 2.98 L Hgb 9.4 L Hct 29.0 L MCV 97.3 MCH 31.5 MCHC 32.4 RDW Std Deviation 52.1 H RDW Coeff of Brian 14.5 Plt Count 173 MPV 10.7 H Immature Gran % (Auto) 0.3 Neut % (Auto) 72.7 Lymph % (Auto) 17.1 [place] % (Auto) 8.1 Eos % (Auto) 1.7 Baso % (Auto) 0.1 Neut # (Auto) 7.92 H Lymph # (Auto) 1.86 [place] # (Auto) 0.88 H Eos # (Auto) 0.18 Baso # (Auto) 0.01 Immature Gran # (Auto) 0.03 H Sodium 136 Potassium 4.3 Chloride 103 Carbon Dioxide 28 Anion Gap 5.0 BUN 29 H Creatinine 1.61 H Est Cr Clr Drug Dosing 30.1 Est GFR ( Amer) 33.7 Est GFR (Non-Af Amer) 29.1 BUN/Creatinine Ratio 18.1 Glucose 169 H POC Glucose Estimat Average Glucose 154 Hemoglobin A1c 7.0 H Calcium 8.1 L Troponin I 11/07/20 11/07/20 08:05 12:12 WBC RBC Hgb Hct MCV MCH MCHC RDW Std Deviation RDW Coeff of Brian Plt Count MPV Immature Gran % (Auto) Neut % (Auto) Lymph % (Auto) [place] % (Auto) Eos % (Auto) Baso % (Auto) Neut # (Auto) Lymph # (Auto) [place] # (Auto) Eos # (Auto) Baso # (Auto) Immature Gran # (Auto) Sodium Potassium Chloride Carbon Dioxide Anion Gap BUN Creatinine Est Cr Clr Drug Dosing Est GFR ( Amer) Est GFR (Non-Af Amer) BUN/Creatinine Ratio Glucose POC Glucose 172 H 201 H Estimat Average Glucose Hemoglobin A1c Calcium Troponin I Medications Administered Current Inpatient Medications Acetaminophen (Acetaminophen 325 Mg Tab) 650 mg PO Q4H PRN PRN Reason: pain/fever Stop: 12/06/20 15:23 Ascorbic Acid (Ascorbic Acid 500 Mg Tab) 500 mg PO DAILY [facility] Stop: 12/07/20 08:59 Last Admin: 11/07/20 08:06 Dose: 500 mg Documented by: Aspirin (Aspirin 81 Mg Ectab) 81 mg PO [facility] Stop: 12/06/20 15:23 Last Admin: 11/07/20 08:06 Dose: 81 mg Documented by: Dextrose (Dextrose 50% 50 Ml Syringe) 25 - 50 ml IV UD PRN; Protocol PRN Reason: Hypoglycemia Protocol Stop: 12/06/20 15:29 Enoxaparin Sodium (Enoxaparin Inj 40 Mg/0.4 Ml Syr) 40 mg SQ [facility] Stop: 12/06/20 20:59 Last Admin: 11/06/20 21:50 Dose: 40 mg Documented by: Furosemide (Furosemide 80 Mg Tab) 80 mg PO [facility] Stop: 12/07/20 08:59 Last Admin: 11/07/20 08:06 Dose: 80 mg Documented by: Gabapentin (Gabapentin 100 Mg Cap) 200 mg PO [facility] Stop: 12/06/20 20:59 Last Admin: 11/06/20 21:50 Dose: 200 mg Documented by: Glucagon (Glucagon For Inj 1 Mg Vial) 1 mg IM UD PRN; Protocol PRN Reason: Hypoglycemia Protocol Stop: 12/06/20 15:29 Glucose (Glucose 40% Gel 15 Gm Tube) 15 - 30 gm PO UD PRN; Protocol PRN Reason: Hypoglycemia Protocol Stop: 12/06/20 15:29 Glucose (Glucose 10 Tabs/Tube) 4 - 8 tabs PO UD PRN; Protocol PRN Reason: Hypoglycemia Protocol Stop: 12/06/20 15:29 Piperacillin Sod/Tazobactam (Sod 4.5 gm/ Dextrose) 120 mls @ 30 mls/hr IV Q8H [facility]; Protocol Stop: 11/13/20 03:59 Insulin Aspart (Insulin Aspart 100 Units/Ml 3 Ml Pen) 0 units SC ACHS [facility] Stop: 12/06/20 16:29 Last Admin: 11/07/20 12:22 Dose: 6 units Documented by: Insulin Aspart (Insulin Aspart 100 Units/Ml 3 Ml Pen) 0 units SC 0000,0400 [facility] Stop: 11/08/20 04:01 Insulin Glargine (Insulin Glargine Solostar 100 Units/Ml 3 Ml Pen) 8 units SC BID [facility]; Protocol Stop: 12/06/20 20:59 Last Admin: 11/07/20 09:14 Dose: 8 units Documented by: Levothyroxine Sodium (Levothyroxine Sodium 75 Mcg Tablet) 75 mcg PO DAILYBB [facility] Stop: 12/07/20 06:29 Last Admin: 11/07/20 05:24 Dose: 75 mcg Documented by: Miscellaneous (Carbohydrates For Hypoglycemia ) 15 - 30 gm PO UD PRN PRN Reason: Hypoglycemia Treatment Stop: 12/06/20 15:29 Miscellaneous Information (Pharmacy Glycemic Mgmt Consult) 1 ea N/A UD [facility]; Protocol Stop: 12/06/20 13:59 Miscellaneous Information (Piperacill/Tazobac Consult Active) 1 ea N/A UD PRN PRN Reason: Consult Stop: 12/06/20 15:23 Morphine Sulfate (Morphine Sulfate 4 Mg/Ml 1 Ml Carp\Vial) 4 mg IV Q30M PRN PRN Reason: Pain Stop: 11/20/20 09:52 Last Admin: 11/06/20 12:53 Dose: 4 mg Documented by: Ondansetron HCl (Ondansetron Inj 2 Mg/Ml 2 Ml Vial) 4 mg IV Q6H PRN PRN Reason: Nausea Stop: 12/06/20 15:23 Vitamin D (Cholecalciferol 1,000 Units 25 Mcg Tab) 2,000 units PO [id number]@0900 [facility] Stop: 12/07/20 08:59 Last Admin: 11/07/20 08:06 Dose: 2,000 units Documented by: PG Care Time/CCT Total # of Minutes Spent Total Time Spent with Patient: Total time spent is greater than 50% in coordination of care (as documented) at patient's floor/unit and/or counseling patient: Coding Level of Care Code 68134 Subseq Hosp Care Lvl 2 Diagnoses Cellulitis, leg L03.119 Hypertension I10 Generalized osteoarthritis of multiple sites M15.9 Hyperlipidemia E78.5 Hypothyroidism E03.9 Peripheral neuropathy G62.9 Retinal detachment H33.20 Chronic venous insufficiency I87.2 Anemia D64.9 Anemia type: unspecified type Diabetes mellitus E11.9 DVT prophylaxis Z29.9 (1) Anemia Anemia type: unspecified type Qualified Code(s): D64.9 - Anemia, unspecified
[2020-11-07] MEDS: ACETAMINOPHEN 325 MG TAB PO PRN (15:56)
[2020-11-07] MEDS: PIPERACILLIN/TAZOBACTAM 4.5 GM in DEXTROSE 5% 100 ML IV SCH (16:51)
[2020-11-07] MEDS: ENOXAPARIN INJ 40 MG/0.4 ML SYR SQ SCH (19:58)
[2020-11-07] MEDS: GABAPENTIN 100 MG CAP PO SCH (19:58)
--- NOTE | 2020-11-07 20:05 | XCELERA ---
[id number] [email or web address]\[id number]
[2020-11-08] MEDS: PIPERACILLIN/TAZOBACTAM 4.5 GM in DEXTROSE 5% 100 ML IV SCH ×3 (00:23→16:35)
[2020-11-08] MEDS: INSULIN ASPART 100 UNITS/ML 3 ML PEN SC SCH ×6 (00:31→21:22)
[2020-11-08] MEDS: LEVOTHYROXINE SODIUM 75 MCG TABLET PO SCH (06:16)
[2020-11-08 07:28] LABS: Basophils # (auto) 0.02 K/uL (0-0.2); Basophils % (auto) 0.2 %; Eosinophils # (auto) 0.49 K/uL (0-0.5); Eosinophils % (auto) 4.5 %; Hematocrit (blood only) 30.1 % (37-47); Hemoglobin 9.8 g/dL (12.0-16.0); Immature Granulocytes # (auto) 0.04 K/uL (0.00-0.02); Immature Granulocytes % (auto) 0.4 %; Lymphocytes % (auto) 15.6 %; Mean Corpuscular Hemoglobin 31.2 pg (25-34); Mean Corpuscular Hgb Conc 32.6 g/dL (32-36); Mean Corpuscular Volume 95.9 fL (80-100); Mean Platelet Volume 10.7 fL (7.4-10.4); Monocytes # (auto) 0.68 K/uL (0.11-0.59); Monocytes % (auto) 6.2 %; Neutrophils # (auto) 7.99 K/uL (1.4-6.5); Neutrophils % (auto) 73.1 %; Platelet Count 190 K/uL (130-400); RDW Coefficient of Variation 14.4 % (11.5-14.5); RDW Standard Deviation 50.7 fL (36.4-46.3); Red Blood Count 3.14 M/uL (4.2-5.4); White Blood Count 10.92 K/uL (4.8-10.8)
[2020-11-08 08:03] LABS: BUN Creatinine Ratio 20.1 (10-20); Calcium 8.6 mg/dl (8.5-10.1); Creatinine Clr Calc Pharmacy 27.7 ml/min; Est GFR (African American) 30.5 ml/min; Est GFR (Non-African American) 26.3 ml/min
[2020-11-08] MEDS: FUROSEMIDE 80 MG TAB PO SCH (08:17)
[2020-11-08] MEDS: ASPIRIN 81 MG ECTAB PO SCH (08:17)
[2020-11-08] MEDS: ASCORBIC ACID 500 MG TAB PO SCH (08:17)
[2020-11-08] MEDS: INSULIN GLARGINE SOLOSTAR 100 UNITS/ML 3 ML PEN SC SCH ×3 (09:05→21:22)
[2020-11-08] MEDS: MoRPHine SULFATE 4 MG/ML 1 ML CARP\\VIAL IV PRN (10:44)
--- NOTE | 2020-11-08 11:30 | Pharmacy Report ---
Pharmacy Glycemic Short Note 2 - Date of Service November 08, 2020 - Glycemic Short BSG Results (Last 24 hours): 11/07/20 11/07/20 11/07/20 12:12 16:57 20:33 Glucose POC Glucose 201 H 212 H 233 H 11/08/20 11/08/20 11/08/20 00:30 04:14 06:24 Glucose 164 H POC Glucose 179 H 142 H 11/08/20 08:04 Glucose POC Glucose 176 H OUTPATIENT ANTIDIABETIC REGIMEN: * Novolin 70/30 30-40 units BID * A1c = 6.4% 07/05/20 ASSESSMENT: 11/08: * Dana received a total of 45 units of insulin yesterday * 16 units basal + 29 units bolus * BSGs were uncontrolled: [phone] mg/dL * Fasting BSG worsened to 176 mg/dL this AM * Will increase basal insulin by ~20% today * Postprandial BSGs have all been elevated * Will tighten Novolog parameters today * No change to correction factor since patient corrects acceptably when not eating 11/06: * Type 2 diabetic admitted for LLE cellulitis possible septic joint * Patient is known to the Glycemic Control Service from prior admissions * Will convert patient to SQ basal/bolus regimen as split-mixed insulins like 70/30 are difficult to titrate and are prone to hypoglycemia when used in the inpatient setting and changing PO status * Will begin with relatively low doses of basal insulin given current BSGs in low 100s after having received on 70/30 insulin this AM. * Novolog doses will be based upon prior admission data when not receiving steroids PLAN FOR INPATIENT GLYCEMIC CONTROL: * Basal insulin - increased * Lantus 12 units SQ BID * Bolus insulin - tightened * NovoLog per scale ACHS or Q6hrs while NPO * Goal Range: Low 110 mg/dL - High 140 mg/dL * Correction Factor: 15 mg/dL/unit * Nutritional / Prandial insulin per carb ratio of 1 unit per 4 grams CHO consumed PLAN FOR DISCHARGE: * HbA1c from this admission is 7% which is at goal for this patient. * No changes recommended to outpatient regimen upon discharge as long as patient is not experiencing any hypoglycemia at home.
[2020-11-08] MEDS ORDERED: COLCHICINE 0.6 MG TAB PO ONE (14:11)
--- NOTE | 2020-11-08 15:28 | Hospitalist Progress Note ---
Date of Service November 08, 2020 Assessment & Plan (1) Cellulitis, leg: Plan: Dana is an 85-year-old female with a past medical history of severe left knee osteoarthritis, left knee septic arthritis with Pseudomonas, chronic venous stasis laterally, hypertension, CKD with acute renal failure 2/2 ATN following cefepime treatment resolved, and diabetes mellitus who presents with 1 week of worsening swelling, warmth, erythema of her left lower extremity and increased a nkle pain. Left lower extremity Nonpurulent Diabetic cellulitis Warm, demarcated, increased swelling of left lower extremity Patient with history of Pseudomonas knee infection in the past with ATN and acute kidney failure requiring dialysis following 5-6 weeks of treatment. Continue Zosyn every 6 hours Knee is not warm, swollen, or tender to palpation. Patient has some pain with flexion/extension reportedly at normal baseline consistent with her known severe OA. Plain film of knee Moderate medial and patellofemoral with mild to moderate lateral compartment osteoarthritis with moderate size joint effusion. No acute fracture or dislocation. Diffuse soft tissue prominence of the imaged lower extremity. Arterial calcifications. Left ankle with increased pain and decreased range of motion. Plain film with swelling but no bone involvement Intact range of motion with pain try a dose of colchicine, perhaps gouty arthritis? venous doppler neg or DVT (2) Hypertension: Plan: Normotensive today Historical, not on home antihypertensives. Patient poor historian of medications Vitals per protocol Continue aspirin 81 mg daily (3) Generalized osteoarthritis of multiple sites: Plan: Tylenol 650 mg every 4 hours as needed try a dose of colchicine today for severe pain in left ankle (4) Hyperlipidemia: Plan: Continue aspirin 81 mg daily No home statin (5) Hypothyroidism: Plan: Continue Synthroid 75 mcg daily Outpatient TSH normal within last 3 months (6) Peripheral neuropathy: Plan: Continue gabapentin 200 mg nightly (7) Retinal detachment: Plan: Vision at baseline, no acute change Noted, no acute management at this time (8) Chronic venous insufficiency: Plan: Chronic, bilateral Elevate legs at least 20 minutes 3 times daily May use light compression of right lower extremity Continue Lasix daily No JVD, no signs of cardiogenic fluid overload (9) Anemia: Plan: Hemoglobin 9.7 No personal or family history of colorectal cancer. Patient has deferred colon cancer screening and colonoscopies in the past after risk/benefit discussion. She reports she has needed IV iron in the past, denies any active bleeding CBC daily, MCV 96 (10) Diabetes mellitus: Plan: Last A1c 6.4% - Admitting BSG 112 On 70/30 home insulin 50 units BID Converted to basal bolus 18 units twice daily Lantus, SSI correction factor 1:25, ratio 1:8. Glucose checks AC/at bedtime (11) DVT prophylaxis: Plan: Review prophylaxis: Lovenox Diet: Diabetic diet Disposition: Medical/surgical Status: DNR/DNI, discussed with patient Admission and Anticipated Discharge Date Admission Date: November 06, 2020 Subjective patient is c/o severe pain in left ankle, more weakness than normal she typically does not have pain in her left ankle no h/o gout, will try a dose of colchicine eating well, breathing well, no fever legs still warm, red, very dry skin she is reluctant but agrees to SNF referral through , too weak to go home Review of Systems Review of Systems: All systems reviewed & are unremarkable except as noted in Subjective Musculoskeletal: + joint pain (left ankle) Integumentary: + erythema and + dry skin Physical Exam Constitutional: well developed, + morbidly obese and comfortable; no acute distress Neck: trachea midline, no thyromegaly Respiratory: normal respiratory effort, lungs clear to auscultation (diminished in bases) Cardiovascular: Rate/Rhythm: regular rate and regular rhythm Heart Sounds: normal S1 and normal S2; no murmur Extremities: normal capillary refill and + edema Gastrointestinal (Abdomen): normal bowel sounds, soft, nontender, no hepatosplenomegaly Musculoskeletal: Head/Neck/Chest: normocephalic, head atraumatic and neck supple Extremities: + abnormal strength Ankle: + limited ROM of ankle (left, very tender) and + joint line tenderness (ankle) (left) Skin: normal turgor, + rash, + crusts, + dry skin and + erythema (venous stasis changes bilaterally, worse on left) Neurologic: CN's II-XI intact bilaterally, normal sensation to monofilament, moves all extremities and awake; no focal motor deficits and not confused Results & Data Results & Data ([facility]) Vital Signs (Past 12 Hours) Vital Signs Temp Pulse Resp BP Pulse Ox 11/08/20 11:00 17 11/08/20 08:07 37 C 85 16 123/63 92 Laboratory Results Laboratory Results - last 24 hr 08/05/2911/07/20 11/08/20 16:57 20:33 00:30 WBC RBC Hgb Hct MCV MCH MCHC RDW Std Deviation RDW Coeff of Brian Plt Count MPV Immature Gran % (Auto) Neut % (Auto) Lymph % (Auto) [place] % (Auto) Eos % (Auto) Baso % (Auto) Neut # (Auto) Lymph # (Auto) [place] # (Auto) Eos # (Auto) Baso # (Auto) Immature Gran # (Auto) Sodium Potassium Chloride Carbon Dioxide Anion Gap BUN Creatinine Est Cr Clr Drug Dosing Est GFR ( Amer) Est GFR (Non-Af Amer) BUN/Creatinine Ratio Glucose POC Glucose 212 H 233 H 179 H Calcium 11/08/20 11/08/20 11/08/20 04:14 06:24 06:24 WBC 10.92 H RBC 3.14 L Hgb 9.8 L Hct 30.1 L MCV 95.9 MCH 31.2 MCHC 32.6 RDW Std Deviation 50.7 H RDW Coeff of Brian 14.4 Plt Count 190 MPV 10.7 H Immature Gran % (Auto) 0.4 Neut % (Auto) 73.1 Lymph % (Auto) 15.6 [place] % (Auto) 6.2 Eos % (Auto) 4.5 Baso % (Auto) 0.2 Neut # (Auto) 7.99 H Lymph # (Auto) 1.70 [place] # (Auto) 0.68 H Eos # (Auto) 0.49 Baso # (Auto) 0.02 Immature Gran # (Auto) 0.04 H Sodium 136 Potassium 4.0 Chloride 102 Carbon Dioxide 27 Anion Gap 7.0 BUN 35 H Creatinine 1.75 H Est Cr Clr Drug Dosing 27.7 Est GFR ( Amer) 30.5 Est GFR (Non-Af Amer) 26.3 BUN/Creatinine Ratio 20.1 H Glucose 164 H POC Glucose 142 H Calcium 8.6 11/08/20 11/08/20 08:04 12:11 WBC RBC Hgb Hct MCV MCH MCHC RDW Std Deviation RDW Coeff of Brian Plt Count MPV Immature Gran % (Auto) Neut % (Auto) Lymph % (Auto) [place] % (Auto) Eos % (Auto) Baso % (Auto) Neut # (Auto) Lymph # (Auto) [place] # (Auto) Eos # (Auto) Baso # (Auto) Immature Gran # (Auto) Sodium Potassium Chloride Carbon Dioxide Anion Gap BUN Creatinine Est Cr Clr Drug Dosing Est GFR ( Amer) Est GFR (Non-Af Amer) BUN/Creatinine Ratio Glucose POC Glucose 176 H 217 H Calcium Medications Administered Current Inpatient Medications Acetaminophen (Acetaminophen 325 Mg Tab) 650 mg PO Q4H PRN PRN Reason: pain/fever Stop: 12/06/20 15:23 Last Admin: 11/07/20 15:56 Dose: 650 mg Documented by: Ascorbic Acid (Ascorbic Acid 500 Mg Tab) 500 mg PO DAILY [facility] Stop: 12/07/20 08:59 Last Admin: 11/08/20 08:17 Dose: 500 mg Documented by: Aspirin (Aspirin 81 Mg Ectab) 81 mg PO QAM [facility] Stop: 12/06/20 15:23 Last Admin: 11/08/20 08:17 Dose: 81 mg Documented by: Dextrose (Dextrose 50% 50 Ml Syringe) 25 - 50 ml IV UD PRN; Protocol PRN Reason: Hypoglycemia Protocol Stop: 12/06/20 15:29 Enoxaparin Sodium (Enoxaparin Inj 40 Mg/0.4 Ml Syr) 40 mg SQ [facility] Stop: 12/06/20 20:59 Last Admin: 11/07/20 19:58 Dose: 40 mg Documented by: Furosemide (Furosemide 80 Mg Tab) 80 mg PO QAM [facility] Stop: 12/07/20 08:59 Last Admin: 11/08/20 08:17 Dose: 80 mg Documented by: Gabapentin (Gabapentin 100 Mg Cap) 200 mg PO HS [facility] Stop: 12/06/20 20:59 Last Admin: 11/07/20 19:58 Dose: 200 mg Documented by: Glucagon (Glucagon For Inj 1 Mg Vial) 1 mg IM UD PRN; Protocol PRN Reason: Hypoglycemia Protocol Stop: 12/06/20 15:29 Glucose (Glucose 40% Gel 15 Gm Tube) 15 - 30 gm PO UD PRN; Protocol PRN Reason: Hypoglycemia Protocol Stop: 12/06/20 15:29 Glucose (Glucose 10 Tabs/Tube) 4 - 8 tabs PO UD PRN; Protocol PRN Reason: Hypoglycemia Protocol Stop: 12/06/20 15:29 Piperacillin Sod/Tazobactam (Sod 4.5 gm/ Dextrose) 120 mls @ 30 mls/hr IV Q8H [facility]; Protocol Stop: 11/13/20 03:59 Last Infusion: 11/08/20 12:14 Dose: Infused Documented by: Insulin Aspart (Insulin Aspart 100 Units/Ml 3 Ml Pen) 0 units SC ACHS [facility]; Protocol Stop: 12/06/20 16:29 Last Admin: 11/08/20 13:02 Dose: 20 units Documented by: Insulin Glargine (Insulin Glargine Solostar 100 Units/Ml 3 Ml Pen) 12 units SC BID [facility]; Protocol Stop: 12/06/20 20:59 Last Admin: 11/08/20 09:08 Dose: 12 units Documented by: Levothyroxine Sodium (Levothyroxine Sodium 75 Mcg Tablet) 75 mcg PO DAILYBB [facility] Stop: 12/07/20 06:29 Last Admin: 11/08/20 06:16 Dose: 75 mcg Documented by: Miscellaneous (Carbohydrates For Hypoglycemia ) 15 - 30 gm PO UD PRN PRN Reason: Hypoglycemia Treatment Stop: 12/06/20 15:29 Miscellaneous Information (Pharmacy Glycemic Mgmt Consult) 1 ea N/A UD [facility]; Protocol Stop: 12/06/20 13:59 Miscellaneous Information (Piperacill/Tazobac Consult Active) 1 ea N/A UD PRN PRN Reason: Consult Stop: 12/06/20 15:23 Morphine Sulfate (Morphine Sulfate 4 Mg/Ml 1 Ml Carp\Vial) 4 mg IV Q30M PRN PRN Reason: Pain Stop: 11/20/20 09:52 Last Admin: 11/08/20 10:44 Dose: 4 mg Documented by: Ondansetron HCl (Ondansetron Inj 2 Mg/Ml 2 Ml Vial) 4 mg IV Q6H PRN PRN Reason: Nausea Stop: 12/06/20 15:23 Vitamin D (Cholecalciferol 1,000 Units 25 Mcg Tab) 2,000 units PO MoWeFr@0900 [facility] Stop: 12/07/20 08:59 Last Admin: 11/07/20 08:06 Dose: 2,000 units Documented by: PG Care Time/CCT Total # of Minutes Spent Total Time Spent with Patient: Total time spent is greater than 50% in coordination of care (as documented) at patient's floor/unit and/or counseling patient: Coding Level of Care Code 22495 Subseq Hosp Care Lvl 2 Diagnoses Cellulitis, leg L03.119 Hypertension I10 Generalized osteoarthritis of multiple sites M15.9 Hyperlipidemia E78.5 Hypothyroidism E03.9 Peripheral neuropathy G62.9 Retinal detachment H33.20 Chronic venous insufficiency I87.2 Anemia D64.9 Anemia type: unspecified type Diabetes mellitus E11.9 DVT prophylaxis Z29.9 (1) Anemia Anemia type: unspecified type Qualified Code(s): D64.9 - Anemia, unspecified
[2020-11-08] MEDS: ACETAMINOPHEN 325 MG TAB PO PRN (15:37)
[2020-11-08] MEDS ORDERED: IBUPROFEN 200 MG TAB PO STA (16:59)
[2020-11-08] MEDS ORDERED: SODIUM CHLORIDE 0.9% 1000ML 1,000 ML IV SCH (17:00)
[2020-11-08] MEDS: GABAPENTIN 100 MG CAP PO SCH (21:22)
[2020-11-08] MEDS: ENOXAPARIN INJ 40 MG/0.4 ML SYR SQ SCH (21:22)
[2020-11-09] MEDS: PIPERACILLIN/TAZOBACTAM 4.5 GM in DEXTROSE 5% 100 ML IV SCH ×3 (00:44→16:39)
[2020-11-09] MEDS: LEVOTHYROXINE SODIUM 75 MCG TABLET PO SCH (05:38)
[2020-11-09 07:27] LABS: Basophils # (auto) 0.01 K/uL (0-0.2); Basophils % (auto) 0.1 %; Eosinophils # (auto) 0.66 K/uL (0-0.5); Eosinophils % (auto) 6.9 %; Hematocrit (blood only) 30.2 % (37-47); Hemoglobin 9.7 g/dL (12.0-16.0); Immature Granulocytes # (auto) 0.12 K/uL (0.00-0.02); Immature Granulocytes % (auto) 1.3 %; Lymphocytes # (auto) 1.65 K/uL (1.2-3.4); Lymphocytes % (auto) 17.3 %; Mean Corpuscular Hemoglobin 30.4 pg (25-34); Mean Corpuscular Hgb Conc 32.1 g/dL (32-36); Mean Corpuscular Volume 94.7 fL (80-100); Mean Platelet Volume 10.7 fL (7.4-10.4); Monocytes # (auto) 0.58 K/uL (0.11-0.59); Monocytes % (auto) 6.1 %; Neutrophils # (auto) 6.53 K/uL (1.4-6.5); Neutrophils % (auto) 68.3 %; Platelet Count 195 K/uL (130-400); RDW Coefficient of Variation 14.3 % (11.5-14.5); RDW Standard Deviation 49.3 fL (36.4-46.3); Red Blood Count 3.19 M/uL (4.2-5.4); White Blood Count 9.55 K/uL (4.8-10.8)
[2020-11-09 08:03] LABS: BUN Creatinine Ratio 19.2 (10-20); Creatinine Clr Calc Pharmacy 26.9 ml/min; Est GFR (African American) 29.4 ml/min; Est GFR (Non-African American) 25.4 ml/min; Potassium 3.7 mmol/L (3.5-5.1); Uric Acid 8.3 mg/dl (2.6-7.2)
[2020-11-09] MEDS: FUROSEMIDE 80 MG TAB PO SCH (08:47)
[2020-11-09] MEDS: CHOLECALCIFEROL 1,000 UNITS 25 MCG TAB PO SCH (08:47)
[2020-11-09] MEDS: ASPIRIN 81 MG ECTAB PO SCH (08:48)
[2020-11-09] MEDS: ASCORBIC ACID 500 MG TAB PO SCH (08:48)
[2020-11-09] MEDS: INSULIN ASPART 100 UNITS/ML 3 ML PEN SC SCH ×4 (08:48→21:31)
[2020-11-09] MEDS: INSULIN GLARGINE SOLOSTAR 100 UNITS/ML 3 ML PEN SC SCH ×2 (08:49→21:31)
--- NOTE | 2020-11-09 09:35 | Pharmacy Report ---
Pharmacy Glycemic Short Note 2 - Date of Service November 09, 2020 - Glycemic Short BSG Results (Last 24 hours): 11/08/20 11/08/20 11/08/20 12:11 17:26 20:42 Glucose POC Glucose 217 H 230 H 163 H 11/09/20 11/09/20 06:20 08:05 Glucose 131 H POC Glucose 145 H OUTPATIENT ANTIDIABETIC REGIMEN: * Novolin 70/30 30-40 units BID * A1c = 6.4% 07/05/20 ASSESSMENT: 11/09: * Patient received 69 units of insulin yesterday (24 units of basal + 45 units of bolus) * Fasting BSG of 145 mg/dL remains above goal but is greatly improved. * Continue current dose as basal insulin was just increased yesterday. * Post prandial BSGs are elevated. Novolog was tightened yesterday. * Continue current parameters for now. I suspect basal insulin deficiency was also contributing to elevation and anticipate improvement today. 11/08: * Dana received a total of 45 units of insulin yesterday * 16 units basal + 29 units bolus * BSGs were uncontrolled: [phone] mg/dL * Fasting BSG worsened to 176 mg/dL this AM * Will increase basal insulin by ~20% today * Postprandial BSGs have all been elevated * Will tighten Novolog parameters today * No change to correction factor since patient corrects acceptably when not eating 11/06: * Type 2 diabetic admitted for LLE cellulitis possible septic joint * Patient is known to the Glycemic Control Service from prior admissions * Will convert patient to SQ basal/bolus regimen as split-mixed insulins like 70/30 are difficult to titrate and are prone to hypoglycemia when used in the inpatient setting and changing PO status * Will begin with relatively low doses of basal insulin given current BSGs in low 100s after having received on 70/30 insulin this AM. * Novolog doses will be based upon prior admission data when not receiving steroids PLAN FOR INPATIENT GLYCEMIC CONTROL: * Basal insulin * Lantus 12 units SQ BID * Bolus insulin * NovoLog per scale ACHS or Q6hrs while NPO * Goal Range: Low 110 mg/dL - High 140 mg/dL * Correction Factor: 15 mg/dL/unit * Nutritional / Prandial insulin per carb ratio of 1 unit per 4 grams CHO consumed PLAN FOR DISCHARGE: * HbA1c from this admission is 7% which is at goal for this patient. * No changes recommended to outpatient regimen upon discharge as long as patient is not experiencing any hypoglycemia at home.
[2020-11-09] MEDS ORDERED: COLCHICINE 0.6 MG TAB PO ONE (11:58)
--- NOTE | 2020-11-09 12:17 | Hospitalist Progress Note ---
Date of Service November 09, 2020 Assessment & Plan (1) Cellulitis, leg: Plan: Dana is an 85-year-old female with a past medical history of severe left knee osteoarthritis, left knee septic arthritis with Pseudomonas, chronic venous stasis laterally, hypertension, CKD with acute renal failure 2/2 ATN following cefepime treatment resolved, and diabetes mellitus who presents with 1 week of worsening swelling, warmth, erythema of her left lower extremity and increased a nkle pain. Left lower extremity Nonpurulent Diabetic cellulitis Warm, demarcated, increased swelling of left lower extremity Patient with history of Pseudomonas knee infection in the past with ATN and acute kidney failure requiring dialysis following 5-6 weeks of treatment. Continue Zosyn every 6 hours good response, less redness and not as hot today (11/09) try to change to PO antibiotics in 48 hours Knee is not warm, swollen, or tender to palpation. Patient has some pain with flexion/extension reportedly at normal baseline consistent with her known severe OA. Plain film of knee Moderate medial and patellofemoral with mild to moderate lateral compartment osteoarthritis with moderate size joint effusion. No acute fracture or dislocation. Diffuse soft tissue prominence of the imaged lower extremity. Arterial calcifications. Left ankle with increased pain and decreased range of motion. Plain film with swelling but no bone involvement Intact range of motion with pain try a dose of colchicine, perhaps gouty arthritis, h/o such uric acid elevated venous doppler neg for DVT (2) Hypertension: Plan: Normotensive Historical, not on home antihypertensives. Patient poor historian of medications Vitals per protocol Continue aspirin 81 mg daily (3) Superficial venous thrombosis of arm: Plan: remove IV from left arm, area of thrombus is 3cm, cephalic vein elevate on pillow (4) Gouty arthritis: Plan: colchicine 0.6mg yesterday and today cannot give Allopurinol during flare prednisone 10mg daily (5) Generalized osteoarthritis of multiple sites: Plan: Tylenol 650 mg every 4 hours as needed suspect gouty arthritis, h/o such in Apr 2020 was supposed to be on Allopurinol 100mg QOD colchicine 0.6mg x 1 this morning, Prednisone 10mg daily (6) Constipation: Plan: give Senokot and Miralax today (7) Hyperlipidemia: Plan: Continue aspirin 81 mg daily No home statin (8) Hypothyroidism: Plan: Continue Synthroid 75 mcg daily Outpatient TSH normal within last 3 months (9) Peripheral neuropathy: Plan: Continue gabapentin 200 mg nightly (10) Retinal detachment: Plan: Vision at baseline, no acute change Noted, no acute management at this time (11) Chronic venous insufficiency: Plan: Chronic, bilateral Elevate legs at least 20 minutes 3 times daily May use light compression of right lower extremity Continue Lasix daily No JVD, no signs of cardiogenic fluid overload (12) Anemia: Plan: Hemoglobin 9.7 No personal or family history of colorectal cancer. Patient has deferred colon cancer screening and colonoscopies in the past after risk/benefit discussion. She reports she has needed IV iron in the past, denies any active bleeding CBC daily, MCV 96 (13) Diabetes mellitus: Plan: Last A1c 6.4% - Admitting BSG 112 On 70/30 home insulin 50 units BID Converted to basal bolus 18 units twice daily Lantus, SSI correction factor 1:25, ratio 1:8. Glucose checks AC/at bedtime (14) DVT prophylaxis: Plan: Review prophylaxis: Lovenox Diet: Diabetic diet Disposition: Medical/surgical Status: DNR/DNI, discussed with patient Admission and Anticipated Discharge Date Admission Date: November 08, 2020 Subjective patient with left UE swelling, redness, most pronounced at left elbow US with superficial thrombus told RN to remove IV on left arm, place IV in right arm h/o right mastectomy 12 years ago, one lymph node removed, no history of lymphedema she is okay with IV in right arm, unfortunately she needs it for the Zosyn right now left ankle very tender, uric acid elevated reviewed records, h/o gout crystals back in April 2020 in the knee was supposed to be on Allopurinol 100mg QOD but not on that cannot use NSAIDs daily due to renal function, try low dose Prednisone for time being give another dose of colchicine Review of Systems Review of Systems: All systems reviewed & are unremarkable except as noted in Subjective Constitutional: + weakness; no fever and no fatigue Respiratory: no cough and no dyspnea Cardiovascular: + edema; no chest pain Gastrointestinal: + constipation (no BM in 5 days) Musculoskeletal: + joint pain (left ankle, left wrist) Physical Exam Constitutional: well developed, + morbidly obese and comfortable; no acute distress Neck: trachea midline, no thyromegaly Respiratory: normal respiratory effort, lungs clear to auscultation (diminished in bases) Cardiovascular: Rate/Rhythm: regular rate and regular rhythm Heart Sounds: normal S1 and normal S2; no murmur Extremities: normal capillary refill and + edema Gastrointestinal (Abdomen): normal bowel sounds, soft, nontender, no hepatosplenomegaly Musculoskeletal: no cyanosis or clubbing, extremities motor strength 5/5 Head/Neck/Chest: normocephalic, head atraumatic and neck supple Extremities: + abnormal strength Ankle: + limited ROM of ankle (left, very tender) and + joint line tenderness (ankle) (left) Skin: normal turgor, + rash, + crusts, + dry skin and + erythema (venous stasis changes bilaterally, worse on left) Neurologic: CN's II-XI intact bilaterally, normal sensation to monofilament, moves all extremities and awake; no focal motor deficits and not confused Results & Data Results & Data ([facility]) Vital Signs (Past 12 Hours) Vital Signs Temp Pulse Resp BP Pulse Ox 11/09/20 09:27 18 11/09/20 08:08 36.5 C 76 16 128/78 99 Laboratory Results Laboratory Results - last 24 hr 11/08/20 11/08/20 11/09/20 17:26 20:42 06:20 WBC RBC Hgb Hct MCV MCH MCHC RDW Std Deviation RDW Coeff of Brian Plt Count MPV Immature Gran % (Auto) Neut % (Auto) Lymph % (Auto) Swain % (Auto) Eos % (Auto) Baso % (Auto) Neut # (Auto) Lymph # (Auto) Swain # (Auto) Eos # (Auto) Baso # (Auto) Immature Gran # (Auto) Sodium 136 Potassium 3.7 Chloride 102 Carbon Dioxide 29 Anion Gap 5.0 BUN 35 H Creatinine 1.80 H Est Cr Clr Drug Dosing 26.9 Est GFR ( Amer) 29.4 Est GFR (Non-Af Amer) 25.4 BUN/Creatinine Ratio 19.2 Glucose 131 H POC Glucose 230 H 163 H Uric Acid 8.3 H Calcium 8.0 L 11/09/20 11/09/20 11/09/20 06:20 08:05 12:09 WBC 9.55 RBC 3.19 L Hgb 9.7 L Hct 30.2 L MCV 94.7 MCH 30.4 MCHC 32.1 RDW Std Deviation 49.3 H RDW Coeff of Brian 14.3 Plt Count 195 MPV 10.7 H Immature Gran % (Auto) 1.3 Neut % (Auto) 68.3 Lymph % (Auto) 17.3 Swain % (Auto) 6.1 Eos % (Auto) 6.9 Baso % (Auto) 0.1 Neut # (Auto) 6.53 H Lymph # (Auto) 1.65 Swain # (Auto) 0.58 Eos # (Auto) 0.66 H Baso # (Auto) 0.01 Immature Gran # (Auto) 0.12 H Sodium Potassium Chloride Carbon Dioxide Anion Gap BUN Creatinine Est Cr Clr Drug Dosing Est GFR ( Amer) Est GFR (Non-Af Amer) BUN/Creatinine Ratio Glucose POC Glucose 145 H 194 H Uric Acid Calcium Medications Administered Current Inpatient Medications Acetaminophen (Acetaminophen 325 Mg Tab) 650 mg PO Q4H PRN PRN Reason: pain/fever Stop: 12/06/20 15:23 Last Admin: 11/08/20 15:37 Dose: 650 mg Documented by: Ascorbic Acid (Ascorbic Acid 500 Mg Tab) 500 mg PO DAILY [facility] Stop: 12/07/20 08:59 Last Admin: 11/09/20 08:48 Dose: 500 mg Documented by: Aspirin (Aspirin 81 Mg Ectab) 81 mg PO QAM [facility] Stop: 12/06/20 15:23 Last Admin: 11/09/20 08:48 Dose: 81 mg Documented by: Dextrose (Dextrose 50% 50 Ml Syringe) 25 - 50 ml IV UD PRN; Protocol PRN Reason: Hypoglycemia Protocol Stop: 12/06/20 15:29 Enoxaparin Sodium (Enoxaparin Inj 40 Mg/0.4 Ml Syr) 40 mg SQ [facility] Stop: 12/06/20 20:59 Last Admin: 11/08/20 21:22 Dose: 40 mg Documented by: Furosemide (Furosemide 80 Mg Tab) 80 mg PO QAM [facility] Stop: 12/07/20 08:59 Last Admin: 11/09/20 08:47 Dose: 80 mg Documented by: Gabapentin (Gabapentin 100 Mg Cap) 200 mg PO HS [facility] Stop: 12/06/20 20:59 Last Admin: 11/08/20 21:22 Dose: 200 mg Documented by: Glucagon (Glucagon For Inj 1 Mg Vial) 1 mg IM UD PRN; Protocol PRN Reason: Hypoglycemia Protocol Stop: 12/06/20 15:29 Glucose (Glucose 40% Gel 15 Gm Tube) 15 - 30 gm PO UD PRN; Protocol PRN Reason: Hypoglycemia Protocol Stop: 12/06/20 15:29 Glucose (Glucose 10 Tabs/Tube) 4 - 8 tabs PO UD PRN; Protocol PRN Reason: Hypoglycemia Protocol Stop: 12/06/20 15:29 Piperacillin Sod/Tazobactam (Sod 4.5 gm/ Dextrose) 120 mls @ 30 mls/hr IV Q8H MALIK; Protocol Stop: 11/13/20 03:59 Last Infusion: 11/09/20 10:39 Dose: 0 mls/hr Documented by: Insulin Aspart (Insulin Aspart 100 Units/Ml 3 Ml Pen) 0 units SC ACHS [facility]; Protocol Stop: 12/06/20 16:29 Last Admin: 11/09/20 08:48 Dose: 10 units Documented by: Insulin Glargine (Insulin Glargine Solostar 100 Units/Ml 3 Ml Pen) 12 units SC BID MALIK; Protocol Stop: 12/06/20 20:59 Last Admin: 11/09/20 08:49 Dose: 12 units Documented by: Levothyroxine Sodium (Levothyroxine Sodium 75 Mcg Tablet) 75 mcg PO DAILYBB MALIK Stop: 12/07/20 06:29 Last Admin: 11/09/20 05:38 Dose: 75 mcg Documented by: Miscellaneous (Carbohydrates For Hypoglycemia ) 15 - 30 gm PO UD PRN PRN Reason: Hypoglycemia Treatment Stop: 12/06/20 15:29 Miscellaneous (Nursing Decision Medication) 1 ea N/A ONE ONE Stop: 11/09/20 12:13 Miscellaneous Information (Pharmacy Glycemic Mgmt Consult) 1 ea N/A UD [facility]; Protocol Stop: 12/06/20 13:59 Miscellaneous Information (Piperacill/Tazobac Consult Active) 1 ea N/A UD PRN PRN Reason: Consult Stop: 12/06/20 15:23 Morphine Sulfate (Morphine Sulfate 4 Mg/Ml 1 Ml Carp\Vial) 4 mg IV Q30M PRN PRN Reason: Pain Stop: 11/20/20 09:52 Last Admin: 11/08/20 10:44 Dose: 4 mg Documented by: Ondansetron HCl (Ondansetron Inj 2 Mg/Ml 2 Ml Vial) 4 mg IV Q6H PRN PRN Reason: Nausea Stop: 12/06/20 15:23 Polyethylene Glycol (Polyethylene (Miralax) 17 Gm Pack) 17 gm PO DAILY [facility] Stop: 12/09/20 12:14 Prednisone (Prednisone 20 Mg Tab) 20 mg PO QAM [facility] Stop: 12/09/20 12:29 Senna/Docusate Sodium (Docusate Sodium/Senna 50/8.6mg Tab) 1 tab PO QAM [facility] Stop: 12/09/20 12:14 Vitamin D (Cholecalciferol 1,000 Units 25 Mcg Tab) 2,000 units PO MoWeFr@0900 [facility] Stop: 12/07/20 08:59 Last Admin: 11/09/20 08:47 Dose: 2,000 units Documented by: PG Care Time/CCT Total # of Minutes Spent Total Time Spent with Patient: Total time spent is greater than 50% in coordination of care (as documented) at patient's floor/unit and/or counseling patient: Coding Level of Care Code 09724 Subseq Hosp Care Lvl 3 Diagnoses Cellulitis, leg L03.119 Hypertension I10 Generalized osteoarthritis of multiple sites M15.9 Hyperlipidemia E78.5 Hypothyroidism E03.9 Peripheral neuropathy G62.9 Retinal detachment H33.20 Chronic venous insufficiency I87.2 Anemia D64.9 Anemia type: unspecified type Diabetes mellitus E11.9 DVT prophylaxis Z29.9 Gouty arthritis M10.9 Constipation K59.00 Superficial venous thrombosis of arm I82.619 (1) Anemia Anemia type: unspecified type Qualified Code(s): D64.9 - Anemia, unspecified
[2020-11-09] MEDS ORDERED: MICONAZOLE NITRATE POWDER 43 GM EXT PRN (12:20)
[2020-11-09] MEDS: POLYETHYLENE (MIRALAX) 17 GM PACK PO SCH (12:41)
[2020-11-09] MEDS: DOCUSATE SODIUM/SENNA 50/8.6MG TAB PO SCH (12:41)
[2020-11-09] MEDS: predniSONE 20 MG TAB PO SCH (13:38)
--- NOTE | 2020-11-09 15:23 | Ultrasound Report ---
LEFT UPPER EXTREMITY VENOUS DOPPLER ULTRASOUND CLINICAL HISTORY: redness and swelling COMPARISON STUDY: Left upper extremity venous Doppler ultrasound May 11, 2020. FINDINGS: The left internal jugular, subclavian, axillary, brachial, radial and ulnar veins are paten t. Note is made of superficial thrombus within the left cephalic vein within the antecubital fossa wh ich extends for 3.3 cm in length. IMPRESSION: 1. Superficial thrombus within the left cephalic vein within the antecubital fossa which extends for 3.3 cm in length. 2. No deep venous thrombus within the left upper extremity. ACT 112: Negative or not required by law. Electronically signed by: Stanley Kwong M.D. 11/09/2020 3:22 PM
[2020-11-09] MEDS: GABAPENTIN 100 MG CAP PO SCH (21:32)
[2020-11-09] MEDS: ENOXAPARIN INJ 40 MG/0.4 ML SYR SQ SCH (21:32)
[2020-11-10] MEDS: PIPERACILLIN/TAZOBACTAM 4.5 GM in DEXTROSE 5% 100 ML IV SCH ×3 (00:19→17:28)
[2020-11-10] MEDS: LEVOTHYROXINE SODIUM 75 MCG TABLET PO SCH (05:27)
[2020-11-10] MEDS: ASCORBIC ACID 500 MG TAB PO SCH (08:27)
[2020-11-10] MEDS: DOCUSATE SODIUM/SENNA 50/8.6MG TAB PO SCH (08:27)
[2020-11-10] MEDS: FUROSEMIDE 80 MG TAB PO SCH (08:28)
[2020-11-10] MEDS: predniSONE 20 MG TAB PO SCH (08:28)
[2020-11-10] MEDS: ASPIRIN 81 MG ECTAB PO SCH (08:28)
[2020-11-10] MEDS: POLYETHYLENE (MIRALAX) 17 GM PACK PO SCH (08:29)
[2020-11-10] MEDS: INSULIN ASPART 100 UNITS/ML 3 ML PEN SC SCH ×4 (09:48→21:03)
[2020-11-10] MEDS: INSULIN GLARGINE SOLOSTAR 100 UNITS/ML 3 ML PEN SC SCH ×2 (09:49→21:03)
--- NOTE | 2020-11-10 09:51 | Hospitalist Progress Note ---
Date of Service November 10, 2020 Assessment & Plan (1) Cellulitis, leg: Plan: Dana is an 85-year-old female with a past medical history of severe left knee osteoarthritis, left knee septic arthritis with Pseudomonas, chronic venous stasis laterally, hypertension, CKD with acute renal failure 2/2 ATN following cefepime treatment resolved, and diabetes mellitus who presents with 1 week of worsening swelling, warmth, erythema of her left lower extremity and increased a nkle pain. Left lower extremity Nonpurulent Diabetic cellulitis Warm, demarcated, increased swelling of left lower extremity Patient with history of Pseudomonas knee infection in the past with ATN and acute kidney failure requiring dialysis following 5-6 weeks of treatment. Continue Zosyn every 6 hours good response, less redness and not as hot the past two days plan to change to PO antibiotics tomorrow Knee is not warm, swollen, or tender to palpation. Patient has some pain with flexion/extension reportedly at normal baseline consistent with her known severe OA. Plain film of knee Moderate medial and patellofemoral with mild to moderate lateral compartment osteoarthritis with moderate size joint effusion. No acute fracture or dislocation. Diffuse soft tissue prominence of the imaged lower extremity. Arterial calcifications. Left ankle with increased pain and decreased range of motion. Plain film with swelling but no bone involvement Intact range of motion with pain try a dose of colchicine, perhaps gouty arthritis, h/o such uric acid elevated at 8.3 venous doppler neg for DVT (2) Superficial venous thrombosis of arm: Plan: removed IV from left arm, area of thrombus is 3cm, cephalic vein elevate on pillow place on full dose Lovenox for now (3) Gouty arthritis: Plan: colchicine 0.6mg on 11/08 and 11/09 cannot give Allopurinol during flare prednisone 10mg daily pain a little better (4) Generalized osteoarthritis of multiple sites: Plan: Tylenol 650 mg every 4 hours as needed suspect gouty arthritis, h/o such in Apr 2020 was supposed to be on Allopurinol 100mg QOD colchicine 0.6mg x 2 separate doses, Prednisone 10mg daily for a few days cannot use NSAIDs due to renal function (5) Hypertension: Plan: Normotensive Historical, not on home antihypertensives. Patient poor historian of medications Vitals per protocol Continue aspirin 81 mg daily (6) Constipation: Plan: give Senokot and Miralax daily until BM, no BM yet (7) Hyperlipidemia: Plan: Continue aspirin 81 mg daily No home statin (8) Hypothyroidism: Plan: Continue Synthroid 75 mcg daily Outpatient TSH normal within last 3 months (9) Peripheral neuropathy: Plan: Continue gabapentin 200 mg nightly (10) Retinal detachment: Plan: Vision at baseline, no acute change Noted, no acute management at this time (11) Chronic venous insufficiency: Plan: Chronic, bilateral Elevate legs at least 20 minutes 3 times daily May use light compression of right lower extremity Continue Lasix daily No JVD, no signs of cardiogenic fluid overload (12) Anemia: Plan: Hemoglobin 9.7 No personal or family history of colorectal cancer. Patient has deferred colon cancer screening and colonoscopies in the past after risk/benefit discussion. She reports she has needed IV iron in the past, denies any active bleeding CBC daily, MCV 96 (13) Diabetes mellitus: Plan: Last A1c 6.4% - Admitting BSG 112 On 70/30 home insulin 50 units BID Converted to basal bolus 18 units twice daily Lantus, SSI correction factor 1:25, ratio 1:8. Glucose checks AC/at bedtime (14) DVT prophylaxis: Plan: Review prophylaxis: Lovenox Diet: Diabetic diet Disposition: Medical/surgical Status: DNR/DNI, discussed with patient Admission and Anticipated Discharge Date Admission Date: November 08, 2020 Subjective left ankle pain is a little better today skin is less red, less hot, no pain left arm still red and swollen, IV moved to right arm, place on full dose Lovenox for now discussed with her that she will be here until Saturday due to bed situation at [facility] she said that maybe she will be stronger by then, go home? discussed that she is very weak, doubtful no chest pain, no dyspnea, no fever still no BM but took another dose of Miralax this morning Review of Systems Review of Systems: All systems reviewed & are unremarkable except as noted in Subjective Physical Exam Constitutional: well developed, + morbidly obese and comfortable; no acute distress Neck: trachea midline, no thyromegaly Respiratory: normal respiratory effort, lungs clear to auscultation (diminished in bases) Cardiovascular: Rate/Rhythm: regular rate and regular rhythm Heart Sounds: normal S1 and normal S2; no murmur Extremities: normal capillary refill and + edema Gastrointestinal (Abdomen): normal bowel sounds, soft, nontender, no hepatosplenomegaly Musculoskeletal: no cyanosis or clubbing, extremities motor strength 5/5 Head/Neck/Chest: normocephalic, head atraumatic and neck supple Extremities: + abnormal strength Ankle: + limited ROM of ankle (left, very tender) and + joint line tenderness (ankle) (left) Skin: normal turgor, + rash, + crusts, + dry skin and + erythema (venous stasis changes bilaterally, worse on left) Neurologic: CN's II-XI intact bilaterally, normal sensation to monofilament, moves all extremities and awake; no focal motor deficits and not confused Results & Data Results & Data ([facility]) Vital Signs (Past 12 Hours) Vital Signs Temp Pulse Resp BP Pulse Ox 11/10/20 08:20 36.4 C L 77 16 119/62 96 11/09/20 23:30 36.4 C L 82 18 116/56 L 96 Laboratory Results Laboratory Results - last 24 hr 11/09/20 11/09/20 11/09/20 12:09 17:03 20:38 POC Glucose 194 H 147 H 187 H 11/10/20 08:10 POC Glucose 190 H Medications Administered Current Inpatient Medications Acetaminophen (Acetaminophen 325 Mg Tab) 650 mg PO Q4H PRN PRN Reason: pain/fever Stop: 12/06/20 15:23 Last Admin: 11/08/20 15:37 Dose: 650 mg Documented by: Ascorbic Acid (Ascorbic Acid 500 Mg Tab) 500 mg PO DAILY [facility] Stop: 12/07/20 08:59 Last Admin: 11/10/20 08:27 Dose: 500 mg Documented by: Aspirin (Aspirin 81 Mg Ectab) 81 mg PO QAM MALIK Stop: 12/06/20 15:23 Last Admin: 11/10/20 08:28 Dose: 81 mg Documented by: Dextrose (Dextrose 50% 50 Ml Syringe) 25 - 50 ml IV UD PRN; Protocol PRN Reason: Hypoglycemia Protocol Stop: 12/06/20 15:29 Enoxaparin Sodium (Enoxaparin Inj 40 Mg/0.4 Ml Syr) 40 mg SQ HS [facility] Stop: 12/06/20 20:59 Last Admin: 11/09/20 21:32 Dose: 40 mg Documented by: Furosemide (Furosemide 80 Mg Tab) 80 mg PO QAM MALIK Stop: 12/07/20 08:59 Last Admin: 11/10/20 08:28 Dose: 80 mg Documented by: Gabapentin (Gabapentin 100 Mg Cap) 200 mg PO HS MALIK Stop: 12/06/20 20:59 Last Admin: 11/09/20 21:32 Dose: 200 mg Documented by: Glucagon (Glucagon For Inj 1 Mg Vial) 1 mg IM UD PRN; Protocol PRN Reason: Hypoglycemia Protocol Stop: 12/06/20 15:29 Glucose (Glucose 40% Gel 15 Gm Tube) 15 - 30 gm PO UD PRN; Protocol PRN Reason: Hypoglycemia Protocol Stop: 12/06/20 15:29 Glucose (Glucose 10 Tabs/Tube) 4 - 8 tabs PO UD PRN; Protocol PRN Reason: Hypoglycemia Protocol Stop: 12/06/20 15:29 Piperacillin Sod/Tazobactam (Sod 4.5 gm/ Dextrose) 120 mls @ 30 mls/hr IV Q8H MALIK; Protocol Stop: 11/13/20 03:59 Last Admin: 11/10/20 08:29 Dose: 30 mls/hr Documented by: Insulin Aspart (Insulin Aspart 100 Units/Ml 3 Ml Pen) 0 units SC ACHS MALIK; Protocol Stop: 12/06/20 16:29 Last Admin: 11/09/20 21:31 Dose: 4 units Documented by: Insulin Glargine (Insulin Glargine Solostar 100 Units/Ml 3 Ml Pen) 15 units SC BID MALIK; Protocol Stop: 12/10/20 08:59 Levothyroxine Sodium (Levothyroxine Sodium 75 Mcg Tablet) 75 mcg PO DAILYBB [facility] Stop: 12/07/20 06:29 Last Admin: 11/10/20 05:27 Dose: 75 mcg Documented by: Miconazole Nitrate (Miconazole Nitrate Powder 43 Gm) 1 appln EXT UD PRN PRN Reason: SKIN FOLDS IRRITATION Stop: 12/09/20 12:19 Miscellaneous (Carbohydrates For Hypoglycemia ) 15 - 30 gm PO UD PRN PRN Reason: Hypoglycemia Treatment Stop: 12/06/20 15:29 Miscellaneous Information (Pharmacy Glycemic Mgmt Consult) 1 ea N/A UD MALIK; Protocol Stop: 12/06/20 13:59 Miscellaneous Information (Piperacill/Tazobac Consult Active) 1 ea N/A UD PRN PRN Reason: Consult Stop: 12/06/20 15:23 Morphine Sulfate (Morphine Sulfate 4 Mg/Ml 1 Ml Carp\Vial) 4 mg IV Q30M PRN PRN Reason: Pain Stop: 11/20/20 09:52 Last Admin: 11/08/20 10:44 Dose: 4 mg Documented by: Ondansetron HCl (Ondansetron Inj 2 Mg/Ml 2 Ml Vial) 4 mg IV Q6H PRN PRN Reason: Nausea Stop: 12/06/20 15:23 Polyethylene Glycol (Polyethylene (Miralax) 17 Gm Pack) 17 gm PO DAILY [facility] Stop: 12/09/20 12:14 Last Admin: 11/10/20 08:29 Dose: 17 gm Documented by: Prednisone (Prednisone 20 Mg Tab) 20 mg PO QAM [facility] Stop: 12/09/20 12:29 Last Admin: 11/10/20 08:28 Dose: 20 mg Documented by: Senna/Docusate Sodium (Docusate Sodium/Senna 50/8.6mg Tab) 1 tab PO QAM [facility] Stop: 12/09/20 12:14 Last Admin: 11/10/20 08:27 Dose: 1 tab Documented by: Vitamin D (Cholecalciferol 1,000 Units 25 Mcg Tab) 2,000 units PO MoWeFr@0900 [facility] Stop: 12/07/20 08:59 Last Admin: 11/09/20 08:47 Dose: 2,000 units Documented by: Zinc Acetate/Diphenhydramine (Diphenhydramine 2%/Zinc 0.1% Cream 28gm Tube) 1 appln EXT Q2H PRN PRN Reason: Itching Stop: 12/10/20 04:43 Last Admin: 11/10/20 06:16 Dose: 1 appln Documented by: PG Care Time/CCT Total # of Minutes Spent Total Time Spent with Patient: Total time spent is greater than 50% in coordination of care (as documented) at patient's floor/unit and/or counseling patient: Coding Level of Care Code 06620 Subseq Hosp Care Lvl 3 Diagnoses Cellulitis, leg L03.119 Hypertension I10 Superficial venous thrombosis of arm I82.619 Gouty arthritis M10.9 Generalized osteoarthritis of multiple sites M15.9 Constipation K59.00 Hyperlipidemia E78.5 Hypothyroidism E03.9 Peripheral neuropathy G62.9 Retinal detachment H33.20 Chronic venous insufficiency I87.2 Anemia D64.9 Anemia type: unspecified type Diabetes mellitus E11.9 DVT prophylaxis Z29.9 (1) Anemia Anemia type: unspecified type Qualified Code(s): D64.9 - Anemia, unspecified
[2020-11-10] MEDS ORDERED: ENOXAPARIN 1 MG/KG SQ SCH (10:00)
--- NOTE | 2020-11-10 11:21 | Pharmacy Report ---
Pharmacy Glycemic Short Note 2 - Date of Service November 10, 2020 - Glycemic Short BSG Results (Last 24 hours): 11/09/20 11/09/20 11/09/20 12:09 17:03 20:38 POC Glucose 194 H 147 H 187 H 11/10/20 08:10 POC Glucose 190 H OUTPATIENT ANTIDIABETIC REGIMEN: * Novolin 70/30 30-40 units BID * A1c = 6.4% 07/05/20 ASSESSMENT: 11/10: * Patient received 65 units of insulin yesterday (24 units of basal + 41 units of bolus) * Fasting BSG of 190 mg/dL remains above goal -increase basal * Post prandial BSGs are elevated prior to lunch and bedtime, continue for now, CR tightened yesterday 11/09: * Patient received 69 units of insulin yesterday (24 units of basal + 45 units of bolus) * Fasting BSG of 145 mg/dL remains above goal but is greatly improved. * Continue current dose as basal insulin was just increased yesterday. * Post prandial BSGs are elevated. Novolog was tightened yesterday. * Continue current parameters for now. I suspect basal insulin deficiency was also contributing to elevation and anticipate improvement today. 11/08: * Dana received a total of 45 units of insulin yesterday * 16 units basal + 29 units bolus * BSGs were uncontrolled: [phone] mg/dL * Fasting BSG worsened to 176 mg/dL this AM * Will increase basal insulin by ~20% today * Postprandial BSGs have all been elevated * Will tighten Novolog parameters today * No change to correction factor since patient corrects acceptably when not eating 11/06: * Type 2 diabetic admitted for LLE cellulitis possible septic joint * Patient is known to the Glycemic Control Service from prior admissions * Will convert patient to SQ basal/bolus regimen as split-mixed insulins like 70/30 are difficult to titrate and are prone to hypoglycemia when used in the inpatient setting and changing PO status * Will begin with relatively low doses of basal insulin given current BSGs in low 100s after having received on 70/30 insulin this AM. * Novolog doses will be based upon prior admission data when not receiving steroids PLAN FOR INPATIENT GLYCEMIC CONTROL: * Basal insulin -increase * Lantus 15 units SQ BID * Bolus insulin * NovoLog per scale ACHS or Q6hrs while NPO * Goal Range: Low 110 mg/dL - High 140 mg/dL * Correction Factor: 15 mg/dL/unit * Nutritional / Prandial insulin per carb ratio of 1 unit per 4 grams CHO consumed PLAN FOR DISCHARGE: * HbA1c from this admission is 7% which is at goal for this patient. * No changes recommended to outpatient regimen upon discharge as long as patient is not experiencing any hypoglycemia at home.
[2020-11-10] MEDS: ENOXAPARIN 100 MG/1ML SYR SQ SCH (11:39)
[2020-11-10] MEDS: GABAPENTIN 100 MG CAP PO SCH (19:43)
[2020-11-11] MEDS: PIPERACILLIN/TAZOBACTAM 4.5 GM in DEXTROSE 5% 100 ML IV SCH ×2 (01:17→08:15)
[2020-11-11 05:49] LABS: Hemoglobin 9.9 g/dL (12.0-16.0); Mean Corpuscular Hemoglobin 30.4 pg (25-34); Mean Corpuscular Hgb Conc 31.9 g/dL (32-36); Mean Corpuscular Volume 95.1 fL (80-100); Mean Platelet Volume 10.6 fL (7.4-10.4); Platelet Count 235 K/uL (130-400); RDW Coefficient of Variation 14.4 % (11.5-14.5); RDW Standard Deviation 49.4 fL (36.4-46.3); Red Blood Count 3.26 M/uL (4.2-5.4); White Blood Count 10.17 K/uL (4.8-10.8)
[2020-11-11] MEDS: LEVOTHYROXINE SODIUM 75 MCG TABLET PO SCH (06:16)
[2020-11-11 06:26] LABS: BUN Creatinine Ratio 28.7 (10-20); Calcium 8.8 mg/dl (8.5-10.1); Creatinine Clr Calc Pharmacy 35.7 ml/min; Est GFR (African American) 41.3 ml/min; Est GFR (Non-African American) 35.6 ml/min; Magnesium 2.7 mg/dl (1.8-2.4); Potassium 3.9 mmol/L (3.5-5.1)
[2020-11-11] MEDS: ASCORBIC ACID 500 MG TAB PO SCH (08:11)
[2020-11-11] MEDS: CHOLECALCIFEROL 1,000 UNITS 25 MCG TAB PO SCH (08:12)
[2020-11-11] MEDS: ASPIRIN 81 MG ECTAB PO SCH (08:12)
[2020-11-11] MEDS: FUROSEMIDE 80 MG TAB PO SCH (08:13)
[2020-11-11] MEDS: DOCUSATE SODIUM/SENNA 50/8.6MG TAB PO SCH (08:13)
[2020-11-11] MEDS: POLYETHYLENE (MIRALAX) 17 GM PACK PO SCH (08:14)
[2020-11-11] MEDS: predniSONE 20 MG TAB PO SCH (08:14)
[2020-11-11] MEDS: INSULIN ASPART 100 UNITS/ML 3 ML PEN SC SCH ×4 (09:42→21:29)
[2020-11-11] MEDS: INSULIN GLARGINE SOLOSTAR 100 UNITS/ML 3 ML PEN SC SCH (09:46)
[2020-11-11] MEDS: ENOXAPARIN 100 MG/1ML SYR SQ SCH (09:46)
[2020-11-11] MEDS ORDERED: predniSONE 10 MG TABLET PO STA (12:42)
--- NOTE | 2020-11-11 12:49 | Pharmacy Report ---
Pharmacy Glycemic Short Note 2 - Date of Service November 11, 2020 - Glycemic Short BSG Results (Last 24 hours): 11/10/20 11/10/20 11/10/20 12:05 17:05 20:57 Glucose POC Glucose 201 H 189 H 194 H 11/11/20 11/11/20 05:07 08:17 Glucose 99 POC Glucose 95 OUTPATIENT ANTIDIABETIC REGIMEN: * Novolin 70/30 30-40 units BID * A1c = 6.4% 07/05/20 ASSESSMENT: 11/11: * Patient received 84 units of insulin yesterday (30 units of basal + 54 units of bolus) * Fasting BSG of 99 mg/dL, much improved since increase in basal yesterday, continue * CF/CR tightened yesterday at dinner time, no changes for now, patient remains on Prednisone 20mg PO Daily * will need to loosen CF/CR as steroids taper/DC 11/10: * Patient received 65 units of insulin yesterday (24 units of basal + 41 units of bolus) * Fasting BSG of 190 mg/dL remains above goal -increase basal * Post prandial BSGs are elevated prior to lunch and bedtime, continue for now, CR tightened yesterday 11/09: * Patient received 69 units of insulin yesterday (24 units of basal + 45 units of bolus) * Fasting BSG of 145 mg/dL remains above goal but is greatly improved. * Continue current dose as basal insulin was just increased yesterday. * Post prandial BSGs are elevated. Novolog was tightened yesterday. * Continue current parameters for now. I suspect basal insulin deficiency was also contributing to elevation and anticipate improvement today. 11/08: * Dana received a total of 45 units of insulin yesterday * 16 units basal + 29 units bolus * BSGs were uncontrolled: [phone] mg/dL * Fasting BSG worsened to 176 mg/dL this AM * Will increase basal insulin by ~20% today * Postprandial BSGs have all been elevated * Will tighten Novolog parameters today * No change to correction factor since patient corrects acceptably when not eating 11/06: * Type 2 diabetic admitted for LLE cellulitis possible septic joint * Patient is known to the Glycemic Control Service from prior admissions * Will convert patient to SQ basal/bolus regimen as split-mixed insulins like 70/30 are difficult to titrate and are prone to hypoglycemia when used in the inpatient setting and changing PO status * Will begin with relatively low doses of basal insulin given current BSGs in low 100s after having received on 70/30 insulin this AM. * Novolog doses will be based upon prior admission data when not receiving steroids PLAN FOR INPATIENT GLYCEMIC CONTROL: * Basal insulin * Lantus 15 units SQ BID * Bolus insulin * NovoLog per scale ACHS or Q6hrs while NPO * Goal Range: Low 110 mg/dL - High 140 mg/dL * Correction Factor: 12 mg/dL/unit * Nutritional / Prandial insulin per carb ratio of 1 unit per 3.5 grams CHO consumed PLAN FOR DISCHARGE: * HbA1c from this admission is 7% which is at goal for this patient. * No changes recommended to outpatient regimen upon discharge as long as patient is not experiencing any hypoglycemia at home.
--- NOTE | 2020-11-11 12:53 | Hospitalist Progress Note ---
Date of Service November 11, 2020 Assessment & Plan (1) Cellulitis, leg: Plan: Dana is an 85-year-old female with a past medical history of severe left knee osteoarthritis, left knee septic arthritis with Pseudomonas, chronic venous stasis laterally, hypertension, CKD with acute renal failure 2/2 ATN following cefepime treatment resolved, and diabetes mellitus who presents with 1 week of worsening swelling, warmth, erythema of her left lower extremity and increased a nkle pain. Left lower extremity Nonpurulent Diabetic cellulitis Warm, demarcated, increased swelling of left lower extremity Patient with history of Pseudomonas knee infection in the past with ATN and acute kidney failure requiring dialysis following 5-6 weeks of treatment. Continue Zosyn every 6 hours good response, less redness and not as hot the past three days plan to change to PO antibiotics this evening, Augmentin BID Knee is not warm, swollen, or tender to palpation. Patient has some pain with flexion/extension reportedly at normal baseline consistent with her known severe OA. Plain film of knee Moderate medial and patellofemoral with mild to moderate lateral compartment osteoarthritis with moderate size joint effusion. No acute fracture or dislocation. Diffuse soft tissue prominence of the imaged lower extremity. Arterial calcifications. Left ankle with increased pain and decreased range of motion. Plain film with swelling but no bone involvement Intact range of motion with pain try a dose of colchicine, perhaps gouty arthritis, h/o such uric acid elevated at 8.3 see below venous doppler neg for DVT (2) Superficial venous thrombosis of arm: Plan: removed IV from left arm, area of thrombus is 3cm, cephalic vein elevate on pillow place on full dose Lovenox for now (3) Gouty arthritis: Plan: colchicine 0.6mg on 11/08 and 11/09 cannot give Allopurinol during flare prednisone 30mg daily pain a little better, able to stand up yesterday (4) Generalized osteoarthritis of multiple sites: Plan: Tylenol 650 mg every 4 hours as needed suspect gouty arthritis, h/o such in Apr 2020 was supposed to be on Allopurinol 100mg QOD colchicine 0.6mg x 2 separate doses, Prednisone 30mg daily for a few days cannot use NSAIDs due to renal function will start Allopurinol once flare over (5) Hypertension: Plan: Normotensive Historical, not on home antihypertensives. Patient poor historian of rodrigo Vitals per protocol Continue aspirin 81 mg daily (6) Constipation: Plan: give Senokot and Miralax daily, had a BM today, hold on further Miralax (7) Hyperlipidemia: Plan: Continue aspirin 81 mg daily No home statin (8) Hypothyroidism: Plan: Continue Synthroid 75 mcg daily Outpatient TSH normal within last 3 months (9) Peripheral neuropathy: Plan: Continue gabapentin 200 mg nightly (10) Retinal detachment: Plan: Vision at baseline, no acute change Noted, no acute management at this time (11) Chronic venous insufficiency: Plan: Chronic, bilateral Elevate legs at least 20 minutes 3 times daily May use light compression of right lower extremity Continue Lasix daily No JVD, no signs of cardiogenic fluid overload (12) Anemia: Plan: Hemoglobin 9.7 No personal or family history of colorectal cancer. Patient has deferred colon cancer screening and colonoscopies in the past after risk/benefit discussion. She reports she has needed IV iron in the past, denies any active bleeding CBC daily, MCV 96 (13) Diabetes mellitus: Plan: Last A1c 6.4% - Admitting BSG 112 On 70/30 home insulin 50 units BID Converted to basal bolus 18 units twice daily Lantus, SSI correction factor 1:25, ratio 1:8. will give some NPH with Prednisone 30mg Glucose checks AC/at bedtime (14) DVT prophylaxis: Plan: Review prophylaxis: Lovenox Diet: Diabetic diet Disposition: Medical/surgical Status: DNR/DNI, discussed with patient Admission and Anticipated Discharge Date Admission Date: November 08, 2020 Subjective left ankle pain is better, yesterday she was able to stand up, side step to chair and sit down, could not have done that a few days ago still has the pain, she can feel it when she moves her ankle left arm is still swollen and red, resting it on pillow, on Lovenox will stop Zosyn today as her legs look normal for her, no signs of severe cellulitis she had a BM today, will hold on miralax no dyspnea, no chest pain, no cough, no fever Review of Systems Review of Systems: All systems reviewed & are unremarkable except as noted in Subjective Physical Exam Constitutional: well developed, + morbidly obese and comfortable; no acute distress Neck: trachea midline, no thyromegaly Respiratory: normal respiratory effort, lungs clear to auscultation (diminished in bases) Cardiovascular: Rate/Rhythm: regular rate and regular rhythm Heart Sounds: normal S1 and normal S2; no murmur Extremities: normal capillary refill and + edema Gastrointestinal (Abdomen): normal bowel sounds, soft, nontender, no hepatosplenomegaly Musculoskeletal: no cyanosis or clubbing, extremities motor strength 5/5 Head/Neck/Chest: normocephalic, head atraumatic and neck supple Extremities: + abnormal strength Ankle: + joint line tenderness (ankle) (less tender) Skin: normal turgor, + rash, + crusts, + dry skin and + erythema (venous stasis changes bilaterally, worse on left) left arm thrombophlebitis Neurologic: CN's II-XI intact bilaterally, normal sensation to monofilament, moves all extremities and awake; no focal motor deficits and not confused Results & Data Results & Data ([facility]) Vital Signs (Past 12 Hours) Vital Signs Temp Pulse Resp BP Pulse Ox 11/11/20 07:26 36.4 C L 69 16 126/54 L 97 Laboratory Results Laboratory Results - last 24 hr 11/10/20 11/10/20 11/11/20 17:05 20:57 05:07 WBC 10.17 RBC 3.26 L Hgb 9.9 L Hct 31.0 L MCV 95.1 MCH 30.4 MCHC 31.9 L RDW Std Deviation 49.4 H RDW Coeff of Brian 14.4 Plt Count 235 MPV 10.6 H Sodium Potassium Chloride Carbon Dioxide Anion Gap BUN Creatinine Est Cr Clr Drug Dosing Est GFR ( Amer) Est GFR (Non-Af Amer) BUN/Creatinine Ratio Glucose POC Glucose 189 H 194 H Calcium Magnesium 11/11/20 11/11/20 11/11/20 05:07 08:17 12:07 WBC RBC Hgb Hct MCV MCH MCHC RDW Std Deviation RDW Coeff of Brian Plt Count MPV Sodium 140 Potassium 3.9 Chloride 105 Carbon Dioxide 28 Anion Gap 7.0 BUN 39 H Creatinine 1.36 H D Est Cr Clr Drug Dosing 35.7 Est GFR ( Amer) 41.3 Est GFR (Non-Af Amer) 35.6 BUN/Creatinine Ratio 28.7 H Glucose 99 POC Glucose 95 184 H Calcium 8.8 Magnesium 2.7 H Medications Administered Current Inpatient Medications Acetaminophen (Acetaminophen 325 Mg Tab) 650 mg PO Q4H PRN PRN Reason: pain/fever Stop: 08/31/21 15:23 Last Admin: 11/08/20 15:37 Dose: 650 mg Documented by: Ascorbic Acid (Ascorbic Acid 500 Mg Tab) 500 mg PO DAILY [facility] Stop: 12/07/20 08:59 Last Admin: 11/11/20 08:11 Dose: 500 mg Documented by: Aspirin (Aspirin 81 Mg Ectab) 81 mg PO QAM [facility] Stop: 12/06/20 15:23 Last Admin: 11/11/20 08:12 Dose: 81 mg Documented by: Dextrose (Dextrose 50% 50 Ml Syringe) 25 - 50 ml IV UD PRN; Protocol PRN Reason: Hypoglycemia Protocol Stop: 12/06/20 15:29 Enoxaparin Sodium (Enoxaparin 100 Mg/1ml Syr) 100 mg SQ DAILY@1030 [facility] Stop: 12/10/20 10:29 Last Admin: 11/11/20 09:46 Dose: 100 mg Documented by: Furosemide (Furosemide 80 Mg Tab) 80 mg PO QAM [facility] Stop: 12/07/20 08:59 Last Admin: 11/11/20 08:13 Dose: 80 mg Documented by: Gabapentin (Gabapentin 100 Mg Cap) 200 mg PO [facility] Stop: 12/06/20 20:59 Last Admin: 11/10/20 19:43 Dose: 200 mg Documented by: Glucagon (Glucagon For Inj 1 Mg Vial) 1 mg IM UD PRN; Protocol PRN Reason: Hypoglycemia Protocol Stop: 12/06/20 15:29 Glucose (Glucose 40% Gel 15 Gm Tube) 15 - 30 gm PO UD PRN; Protocol PRN Reason: Hypoglycemia Protocol Stop: 12/06/20 15:29 Glucose (Glucose 10 Tabs/Tube) 4 - 8 tabs PO UD PRN; Protocol PRN Reason: Hypoglycemia Protocol Stop: 12/06/20 15:29 Piperacillin Sod/Tazobactam (Sod 4.5 gm/ Dextrose) 120 mls @ 30 mls/hr IV Q8H [facility]; Protocol Stop: 11/13/20 03:59 Last Infusion: 11/11/20 12:24 Dose: Infused Documented by: Insulin Aspart (Insulin Aspart 100 Units/Ml 3 Ml Pen) 0 units SC [facility]; Protocol Stop: 12/06/20 16:29 Last Admin: 11/11/20 09:42 Dose: 16 units Documented by: Insulin Glargine (Insulin Glargine Solostar 100 Units/Ml 3 Ml Pen) 15 units SC BID [facility]; Protocol Stop: 12/10/20 08:59 Last Admin: 11/11/20 09:46 Dose: 15 units Documented by: Levothyroxine Sodium (Levothyroxine Sodium 75 Mcg Tablet) 75 mcg PO DAILYBB [facility] Stop: 12/07/20 06:29 Last Admin: 11/11/20 06:16 Dose: 75 mcg Documented by: Miconazole Nitrate (Miconazole Nitrate Powder 43 Gm) 1 appln EXT UD PRN PRN Reason: SKIN FOLDS IRRITATION Stop: 12/09/20 12:19 Miscellaneous (Carbohydrates For Hypoglycemia ) 15 - 30 gm PO UD PRN PRN Reason: Hypoglycemia Treatment Stop: 12/06/20 15:29 Miscellaneous Information (Pharmacy Glycemic Mgmt Consult) 1 ea N/A UD [facility]; Protocol Stop: 12/06/20 13:59 Miscellaneous Information (Piperacill/Tazobac Consult Active) 1 ea N/A UD PRN PRN Reason: Consult Stop: 12/06/20 15:23 Morphine Sulfate (Morphine Sulfate 4 Mg/Ml 1 Ml Carp\Vial) 4 mg IV Q30M PRN PRN Reason: Pain Stop: 11/20/20 09:52 Last Admin: 11/08/20 10:44 Dose: 4 mg Documented by: Ondansetron HCl (Ondansetron Inj 2 Mg/Ml 2 Ml Vial) 4 mg IV Q6H PRN PRN Reason: Nausea Stop: 12/06/20 15:23 Polyethylene Glycol (Polyethylene (Miralax) 17 Gm Pack) 17 gm PO DAILY [facility] Stop: 12/09/20 12:14 Last Admin: 11/11/20 08:14 Dose: Not Given Documented by: Prednisone (Prednisone 20 Mg Tab) [facility] Stop: 12/09/20 12:29 Last Admin: 11/11/20 08:14 Dose: 20 mg Documented by: Senna/Docusate Sodium (Docusate Sodium/Senna 50/8.6mg Tab) 1 tab PO QAM [facility] Stop: 12/09/20 12:14 Last Admin: 11/11/20 08:13 Dose: 1 tab Documented by: Vitamin D (Cholecalciferol 1,000 Units 25 Mcg Tab) 2,000 units PO MoWeFr@0900 [facility] Stop: 12/07/20 08:59 Last Admin: 11/11/20 08:12 Dose: 2,000 units Documented by: Zinc Acetate/Diphenhydramine (Diphenhydramine 2%/Zinc 0.1% Cream 28gm Tube) 1 appln EXT Q2H PRN PRN Reason: Itching Stop: 12/10/20 04:43 Last Admin: 11/10/20 06:16 Dose: 1 appln Documented by: PG Care Time/CCT Total # of Minutes Spent Total Time Spent with Patient: Total time spent is greater than 50% in coordination of care (as documented) at patient's floor/unit and/or counseling patient: Coding Level of Care Code 90731 Subseq Hosp Care Lvl 3 Diagnoses Cellulitis, leg L03.119 Superficial venous thrombosis of arm I82.619 Gouty arthritis M10.9 Generalized osteoarthritis of multiple sites M15.9 Hypertension I10 Constipation K59.00 Hyperlipidemia E78.5 Hypothyroidism E03.9 Peripheral neuropathy G62.9 Retinal detachment H33.20 Chronic venous insufficiency I87.2 Anemia D64.9 Anemia type: unspecified type Diabetes mellitus E11.9 DVT prophylaxis Z29.9 (1) Anemia Anemia type: unspecified type Qualified Code(s): D64.9 - Anemia, unspecified
[2020-11-11] MEDS: AMOXICILLIN/CLAVULANATE 875 MG TAB PO SCH (18:02)
[2020-11-11] MEDS ORDERED: INSULIN GLARGINE SOLOSTAR 100 UNITS/ML 3 ML PEN SC SCH (21:00)
[2020-11-11] MEDS: GABAPENTIN 100 MG CAP PO SCH (21:31)
[2020-11-12] MEDS: LEVOTHYROXINE SODIUM 75 MCG TABLET PO SCH (05:31)
[2020-11-12 07:03] LABS: Creatinine Clr Calc Pharmacy 36.2 ml/min; Est GFR (African American) 42.1 ml/min; Est GFR (Non-African American) 36.3 ml/min
[2020-11-12] MEDS: INSULIN ASPART 100 UNITS/ML 3 ML PEN SC SCH ×4 (08:46→21:54)
[2020-11-12] MEDS: POLYETHYLENE (MIRALAX) 17 GM PACK PO SCH (08:50)
[2020-11-12] MEDS: predniSONE 10 MG TABLET PO SCH (08:50)
[2020-11-12] MEDS: DOCUSATE SODIUM/SENNA 50/8.6MG TAB PO SCH (08:51)
[2020-11-12] MEDS: FUROSEMIDE 80 MG TAB PO SCH (08:51)
[2020-11-12] MEDS: ASCORBIC ACID 500 MG TAB PO SCH (08:52)
[2020-11-12] MEDS: AMOXICILLIN/CLAVULANATE 875 MG TAB PO SCH ×2 (08:52→18:07)
[2020-11-12] MEDS: ASPIRIN 81 MG ECTAB PO SCH (08:52)
[2020-11-12] MEDS ORDERED: INSULIN GLARGINE SOLOSTAR 100 UNITS/ML 3 ML PEN SC SCH (09:00)
[2020-11-12] MEDS: ENOXAPARIN 100 MG/1ML SYR SQ SCH (09:30)
--- NOTE | 2020-11-12 15:16 | Hospitalist Progress Note ---
Date of Service November 12, 2020 Assessment & Plan (1) Cellulitis, leg: Plan: Dana is an 85-year-old female with a past medical history of severe left knee osteoarthritis, left knee septic arthritis with Pseudomonas, chronic venous stasis laterally, hypertension, CKD with acute renal failure 2/2 ATN following cefepime treatment resolved, and diabetes mellitus who presents with 1 week of worsening swelling, warmth, erythema of her left lower extremity and increased a nkle pain. Left lower extremity Nonpurulent Diabetic cellulitis Warm, demarcated, increased swelling of left lower extremity Patient with history of Pseudomonas knee infection in the past with ATN and acute kidney failure requiring dialysis following 5-6 weeks of treatment. treated with Zosyn every 6 hours good response, less redness and not as hot the past four days now on Augmentin BID, continue for a total of 10 days of treatment, last day would be 11/16 Knee is not warm, swollen, or tender to palpation. Patient has some pain with flexion/extension reportedly at normal baseline consistent with her known severe OA. Plain film of knee Moderate medial and patellofemoral with mild to moderate lateral compartment osteoarthritis with moderate size joint effusion. No acute fracture or dislocation. Diffuse soft tissue prominence of the imaged lower extremity. Arterial calcifications. Left ankle with increased pain and decreased range of motion. Plain film with swelling but no bone involvement Intact range of motion with pain try a dose of colchicine, perhaps gouty arthritis, h/o such uric acid elevated at 8.3 see below venous doppler neg for DVT (2) Superficial venous thrombosis of arm: Plan: removed IV from left arm, area of thrombus is 3cm, cephalic vein elevate on pillow place on full dose Lovenox arm is less swollen, less red, not hot or tender today continue Lovenox while here but this would not require retirement anticoagulation (3) Gouty arthritis: Plan: colchicine 0.6mg on 11/08 and 11/09 prednisone 30mg daily pain a little better, able to stand up yesterday and today will start on Allopurinol 100mg every other day, give a dose today (4) Generalized osteoarthritis of multiple sites: Plan: Tylenol 650 mg every 4 hours as needed suspect gouty arthritis, h/o such in Apr 2020 was supposed to be on Allopurinol 100mg QOD colchicine 0.6mg x 2 separate doses, Prednisone 30mg daily for a few days cannot use NSAIDs due to renal function will start Allopurinol now that her pain is much better (5) Hypertension: Plan: Normotensive Historical, not on home antihypertensives. Patient poor historian of medications Vitals per protocol Continue aspirin 81 mg daily (6) Constipation: Plan: give Senokot and Miralax daily, had a BM /, hold on further Miralax (7) Hyperlipidemia: Plan: Continue aspirin 81 mg daily No home statin (8) Hypothyroidism: Plan: Continue Synthroid 75 mcg daily Outpatient TSH normal within last 3 months (9) Peripheral neuropathy: Plan: Continue gabapentin 200 mg nightly (10) Retinal detachment: Plan: Vision at baseline, no acute change Noted, no acute management at this time (11) Chronic venous insufficiency: Plan: Chronic, bilateral Elevate legs at least 20 minutes 3 times daily May use light compression of right lower extremity Continue Lasix daily No JVD, no signs of cardiogenic fluid overload (12) Anemia: Plan: Hemoglobin 9.7 No personal or family history of colorectal cancer. Patient has deferred colon cancer screening and colonoscopies in the past after risk/benefit discussion. She reports she has needed IV iron in the past, denies any active bleeding CBC daily, MCV 96 (13) Diabetes mellitus: Plan: Last A1c 6.4% - Admitting BSG 112 On 70/30 home insulin 50 units BID Converted to basal bolus 18 units twice daily Lantus, SSI correction factor 1:2 5, ratio 1:8. will give some NPH with Prednisone 30mg Glucose checks AC/at bedtime sugars stable, no extreme highs or lows (14) DVT prophylaxis: Plan: Review prophylaxis: Lovenox Diet: Diabetic diet Disposition: Medical/surgical Status: DNR/DNI, discussed with patient Plan: as of now the plan is for SNF rehab, but patient getting stronger, she would like to be evaluated again on Saturday for going home with home health Admission and Anticipated Discharge Date Admission Date: November 08, 2020 Subjective doing really well, OOB in chair, feeling stronger, less pain in left ankle eating well, breathing well she says her legs look like they always do at baseline Cr is stable today sugars are stable on the Prednisone she is hoping to go home after the weekend, told her she will need to be evaluated again by therapy the pain and swelling in left arm is vastly improved, not warm at all Review of Systems Review of Systems: All systems reviewed & are unremarkable except as noted in Subjective Musculoskeletal: + joint pain (left ankle) Physical Exam Constitutional: well developed, + morbidly obese and comfortable; no acute distress Neck: trachea midline, no thyromegaly Respiratory: normal respiratory effort, lungs clear to auscultation (diminished in bases) Cardiovascular: Rate/Rhythm: regular rate and regular rhythm Heart Sounds: normal S1 and normal S2; no murmur Extremities: normal capillary refill and + edema Gastrointestinal (Abdomen): normal bowel sounds, soft, nontender, no hepatosplenomegaly Musculoskeletal: no cyanosis or clubbing, extremities motor strength 5/5 Head/Neck/Chest: normocephalic, head atraumatic and neck supple Extremities: + abnormal strength Ankle: + joint line tenderness (ankle) (less tender) Skin: normal turgor, + rash, + crusts, + dry skin and + erythema (venous stasis changes bilaterally, worse on left) Neurologic: CN's II-XI intact bilaterally, normal sensation to monofilament, moves all extremities and awake; no focal motor deficits and not confused Results & Data Results & Data ([facility]) Vital Signs (Past 12 Hours) Vital Signs Temp Pulse Resp BP Pulse Ox 11/12/20 15:00 36.5 C 64 16 143/64 H 96 11/12/20 07:32 36.5 C 70 16 148/76 H 95 Laboratory Results Laboratory Results - last 24 hr 11/11/20 11/11/20 11/12/20 17:14 21:06 06:03 Creatinine 1.34 H Est Cr Clr Drug Dosing 36.2 Est GFR ( Amer) 42.1 Est GFR (Non-Af Amer) 36.3 POC Glucose 228 H 189 H 11/12/20 11/12/20 08:13 12:20 Creatinine Est Cr Clr Drug Dosing Est GFR ( Amer) Est GFR (Non-Af Amer) POC Glucose 185 H 227 H Medications Administered Current Inpatient Medications Acetaminophen (Acetaminophen 325 Mg Tab) 650 mg PO Q4H PRN PRN Reason: pain/fever Stop: 12/06/20 15:23 Last Admin: 11/08/20 15:37 Dose: 650 mg Documented by: Amoxicillin/Clavulanate Potassium (Amoxicillin/Clavulanate 875 Mg Tab) 1 tab PO BIDM [facility] Stop: 11/18/20 16:59 Last Admin: 11/12/20 08:52 Dose: 1 tab Documented by: Ascorbic Acid (Ascorbic Acid 500 Mg Tab) 500 mg PO DAILY [facility] Stop: 12/07/20 08:59 Last Admin: 11/12/20 08:52 Dose: 500 mg Documented by: Aspirin (Aspirin 81 Mg Ectab) 81 mg PO QAM [facility] Stop: 12/06/20 15:23 Last Admin: 11/12/20 08:52 Dose: 81 mg Documented by: Dextrose (Dextrose 50% 50 Ml Syringe) 25 - 50 ml IV UD PRN; Protocol PRN Reason: Hypoglycemia Protocol Stop: 12/06/20 15:29 Enoxaparin Sodium (Enoxaparin 100 Mg/1ml Syr) 100 mg SQ DAILY@1030 [facility] Stop: 12/10/20 10:29 Last Admin: 11/12/20 09:30 Dose: 100 mg Documented by: Furosemide (Furosemide 80 Mg Tab) 80 mg PO QAM [facility] Stop: 12/07/20 08:59 Last Admin: 11/12/20 08:51 Dose: 80 mg Documented by: Gabapentin (Gabapentin 100 Mg Cap) 200 mg PO HS [facility] Stop: 12/06/20 20:59 Last Admin: 11/11/20 21:31 Dose: 200 mg Documented by: Glucagon (Glucagon For Inj 1 Mg Vial) 1 mg IM UD PRN; Protocol PRN Reason: Hypoglycemia Protocol Stop: 12/06/20 15:29 Glucose (Glucose 40% Gel 15 Gm Tube) 15 - 30 gm PO UD PRN; Protocol PRN Reason: Hypoglycemia Protocol Stop: 12/06/20 15:29 Glucose (Glucose 10 Tabs/Tube) 4 - 8 tabs PO UD PRN; Protocol PRN Reason: Hypoglycemia Protocol Stop: 12/06/20 15:29 Insulin Aspart (Insulin Aspart 100 Units/Ml 3 Ml Pen) 0 units SC ACHS [facility]; Protocol Stop: 12/06/20 16:29 Last Admin: 11/12/20 12:55 Dose: 16 units Documented by: Insulin Glargine (Insulin Glargine Solostar 100 Units/Ml 3 Ml Pen) 0 units SC BID [facility]; Protocol Stop: 12/12/20 20:59 Levothyroxine Sodium (Levothyroxine Sodium 75 Mcg Tablet) [facility]: 12/07/20 06:29 Last Admin: 11/12/20 05:31 Dose: 75 mcg Documented by: Miconazole Nitrate (Miconazole Nitrate Powder 43 Gm) 1 appln EXT UD PRN PRN Reason: SKIN FOLDS IRRITATION Stop: 12/09/20 12:19 Miscellaneous (Carbohydrates For Hypoglycemia ) 15 - 30 gm PO UD PRN PRN Reason: Hypoglycemia Treatment Stop: 12/06/20 15:29 Miscellaneous Information (Pharmacy Glycemic Mgmt Consult) 1 ea N/A [facility]; Protocol Stop: 12/06/20 13:59 Morphine Sulfate (Morphine Sulfate 4 Mg/Ml 1 Ml Carp\Vial) 4 mg IV Q30M PRN PRN Reason: Pain Stop: 11/20/20 09:52 Last Admin: 11/08/20 10:44 Dose: 4 mg Documented by: Ondansetron HCl (Ondansetron Inj 2 Mg/Ml 2 Ml Vial) 4 mg IV Q6H PRN PRN Reason: Nausea Stop: 12/06/20 15:23 Prednisone (Prednisone 10 Mg Tablet) [facility] [place] Stop: 12/12/20 08:59 Last Admin: 11/12/20 08:50 Dose: 30 mg Documented by: Senna/Docusate Sodium (Docusate Sodium/Senna 50/8.6mg Tab) 1 tab PO [facility] Stop: 12/09/20 12:14 Last Admin: 11/12/20 08:51 Dose: Not Given Documented by: Vitamin D (Cholecalciferol 1,000 Units 25 Mcg Tab) 2,000 units PO MoWeFr@0900 [facility] Stop: 12/07/20 08:59 Last Admin: 11/11/20 08:12 Dose: 2,000 units Documented by: Zinc Acetate/Diphenhydramine (Diphenhydramine 2%/Zinc 0.1% Cream 28gm Tube) 1 appln EXT Q2H PRN PRN Reason: Itching Stop: 12/10/20 04:43 Last Admin: 11/10/20 06:16 Dose: 1 appln Documented by: PG Care Time/CCT Total # of Minutes Spent Total Time Spent with Patient: Total time spent is greater than 50% in coordination of care (as documented) at patient's floor/unit and/or counseling patient: Coding Level of Care Code 73677 Subseq Hosp Care Lvl 2 Diagnoses Cellulitis, leg L03.119 Superficial venous thrombosis of arm I82.619 Gouty arthritis M10.9 Generalized osteoarthritis of multiple sites M15.9 Hypertension I10 Constipation K59.00 Hyperlipidemia E78.5 Hypothyroidism E03.9 Peripheral neuropathy G62.9 Retinal detachment H33.20 Chronic venous insufficiency I87.2 Anemia D64.9 Anemia type: unspecified type Diabetes mellitus E11.9 DVT prophylaxis Z29.9 (1) Anemia Anemia type: unspecified type Qualified Code(s): D64.9 - Anemia, unspecified
[2020-11-12] MEDS: allopurinoL 100 MG TAB PO SCH (18:07)
[2020-11-12] MEDS: INSULIN GLARGINE SOLOSTAR 100 UNITS/ML 3 ML PEN SC SCH (21:53)
[2020-11-12] MEDS: GABAPENTIN 100 MG CAP PO SCH (21:54)
[2020-11-13] MEDS: LEVOTHYROXINE SODIUM 75 MCG TABLET PO SCH (06:00)
[2020-11-13 07:08] LABS: Creatinine Clr Calc Pharmacy 37.3 ml/min; Est GFR (African American) 43.6 ml/min; Est GFR (Non-African American) 37.6 ml/min
[2020-11-13] MEDS: INSULIN ASPART 100 UNITS/ML 3 ML PEN SC SCH ×4 (08:56→21:34)
[2020-11-13] MEDS: INSULIN GLARGINE SOLOSTAR 100 UNITS/ML 3 ML PEN SC SCH ×2 (08:58→21:34)
[2020-11-13] MEDS: FUROSEMIDE 80 MG TAB PO SCH (08:59)
[2020-11-13] MEDS: DOCUSATE SODIUM/SENNA 50/8.6MG TAB PO SCH (09:00)
[2020-11-13] MEDS: ASCORBIC ACID 500 MG TAB PO SCH (09:00)
[2020-11-13] MEDS: ASPIRIN 81 MG ECTAB PO SCH (09:00)
[2020-11-13] MEDS: predniSONE 10 MG TABLET PO SCH (09:00)
[2020-11-13] MEDS: AMOXICILLIN/CLAVULANATE 875 MG TAB PO SCH ×2 (09:01→17:55)
--- NOTE | 2020-11-13 11:30 | Hospitalist Progress Note ---
Date of Service November 13, 2020 Assessment & Plan (1) Cellulitis, leg: Plan: Left lower extremity Nonpurulent Diabetic cellulitis treated with Zosyn every 6 hours good response, less redness and not as hot - now back to baseline according to patient now on Augmentin BID, continue for a total of 10 days of treatment, last day would be 11/16 Knee is not warm, swollen, or tender to palpation. Patient has some pain with flexion/extension reportedly at normal baseline consistent with her known severe OA. Plain film of knee Moderate medial and patellofemoral with mild to moderate lateral compartment osteoarthritis with moderate size joint effusion. No acute fracture or dislocation. Diffuse soft tissue prominence of the imaged lower extremity. Arterial calcifications. Left ankle with increased pain and decreased range of motion. Plain film with swelling but no bone involvement Intact range of motion with pain try a dose of colchicine, perhaps gouty arthritis, h/o such uric acid elevated at 8.3 see below venous doppler neg for DVT (2) Superficial venous thrombosis of arm: Plan: removed IV from left arm, area of thrombus is 3cm, cephalic vein elevate on pillow place Lovenox 100mg daily arm is less swollen, less red, not hot or tender today continue Lovenox while here but this would not require fpc anticoagulation, can stop on discharge this would not pose any risk of PE (3) Gouty arthritis: Plan: colchicine 0.6mg on 11/08 and 11/09 prednisone 30mg daily pain much better, able to stand on ankle past three days started on Allopurinol 100mg every other day, continue on discharge have PCP follow up uric acid level in 1-2 weeks decrease Prednisone to 20mg tomorrow, would taper quickly on discharge (4) Generalized osteoarthritis of multiple sites: Plan: Tylenol 650 mg every 4 hours as needed suspect gouty arthritis, h/o such in Apr 2020 was supposed to be on Allopurinol 100mg QOD colchicine 0.6mg x 2 separate doses, Prednisone 30mg daily - 20mg tomorrow cannot use NSAIDs due to renal function will start Allopurinol now that her pain is much better (5) Hypertension: Plan: Normotensive Historical, not on home antihypertensives. Patient poor historian of medications Vitals per protocol Continue aspirin 81 mg daily (6) Constipation: Plan: give Senokot and Miralax daily, had a BM 11/11, hold on further Miralax (7) Hyperlipidemia: Plan: Continue aspirin 81 mg daily No home statin (8) Hypothyroidism: Plan: Continue Synthroid 75 mcg daily Outpatient TSH normal within last 3 months (9) Peripheral neuropathy: Plan: Continue gabapentin 200 mg nightly (10) Retinal detachment: Plan: Vision at baseline, no acute change Noted, no acute management at this time (11) Chronic venous insufficiency: Plan: Chronic, bilateral Elevate legs at least 20 minutes 3 times daily May use light compression of right lower extremity Continue Lasix daily No JVD, no signs of cardiogenic fluid overload (12) Anemia: Plan: Hemoglobin 9.7 when last checked No personal or family history of colorectal cancer. Patient has deferred colon cancer screening and colonoscopies in the past after risk/benefit discussion. She reports she has needed IV iron in the past, denies any active bleeding (13) Diabetes mellitus: Plan: Last A1c 6.4% On 70/30 home insulin 50 units BID Converted to Lantus BID per protocol, SSI correction factor 1:25, ratio 1:8. will give some NPH with Prednisone 30mg Glucose checks AC/at bedtime sugars stable, no extreme highs or lows resume 70/30 BID on discharge, would taper Prednisone to 10mg quickly, could keep on 10mg a few days for the gout should not effect sugars too much at 10mg (14) DVT prophylaxis: Plan: Review prophylaxis: Lovenox Diet: Diabetic diet Disposition: Medical/surgical Status: DNR/DNI, discussed with patient Plan: as of now the plan is for SNF rehab, but patient getting stronger, she would like to be evaluated again on Saturday for going home with home health she has bedside commode, walker, stair lift chair and helps her her mobility has improved a lot mostly due to controlling left ankle pain, she went from extreme pain on just moving it to now being able to stand on it Admission and Anticipated Discharge Date Admission Date: November 08, 2020 Subjective patient sitting OOB in chair again, feeling well, feels like she has her strength back she says at home she has bedside commode, walker, stair lift chair and her helps her she would really like to avoid going to rehab if possible told her we can get PT/OT to re-evaluate tomorrow morning, if significantly stronger then perhaps she can go home with home health/therapy she agrees with this plan eating well, breathing comfortably, legs "look normal for me" left ankle pain is better each day on the Prednisone left arm redness and swelling better each day as well Review of Systems Review of Systems: All systems reviewed & are unremarkable except as noted in Subjective Physical Exam Constitutional: well developed, + morbidly obese and comfortable; no acute distress Neck: trachea midline, no thyromegaly Respiratory: normal respiratory effort, lungs clear to auscultation (d iminished in bases) Cardiovascular: Rate/Rhythm: regular rate and regular rhythm Heart Sounds: normal S1 and normal S2; no murmur Extremities: normal capillary refill and + edema (chronic in legs) Gastrointestinal (Abdomen): normal bowel sounds, soft, nontender, no hepatosplenomegaly Musculoskeletal: no cyanosis or clubbing, extremities motor strength 5/5 Head/Neck/Chest: normocephalic, head atraumatic and neck supple Extremities: + abnormal strength Ankle: + joint line tenderness (ankle) (less tender) Skin: normal turgor, + rash, + crusts, + dry skin and + erythema (venous stasis changes bilaterally, worse on left) Neurologic: CN's II-XI intact bilaterally, normal sensation to monofilament, moves all extremities and awake; no focal motor deficits and not confused Results & Data Results & Data ([facility]) Vital Signs (Past 12 Hours) Vital Signs Temp Pulse Resp BP Pulse Ox 11/13/20 07:45 36.7 C 70 16 147/70 H 95 Laboratory Results Laboratory Results - last 24 hr 11/12/20 11/12/20 11/12/20 12:20 17:22 20:38 Creatinine Est Cr Clr Drug Dosing Est GFR ( Amer) Est GFR (Non-Af Amer) POC Glucose 227 H 204 H 193 H 11/13/20 11/13/20 05:34 08:13 Creatinine 1.30 H Est Cr Clr Drug Dosing 37.3 Est GFR ( Amer) 43.6 Est GFR (Non-Af Amer) 37.6 POC Glucose 78 Medications Administered Current Inpatient Medications Acetaminophen (Acetaminophen 325 Mg Tab) 650 mg PO Q4H PRN PRN Reason: pain/fever Stop: 12/06/20 15:23 Last Admin: 11/08/20 15:37 Dose: 650 mg Documented by: Allopurinol (Allopurinol 100 Mg Tab) 100 mg PO Q2D@0900 [facility] Stop: 12/12/20 15:44 Last Admin: 11/12/20 18:07 Dose: 100 mg Documented by: Amoxicillin/Clavulanate Potassium (Amoxicillin/Clavulanate 875 Mg Tab) 1 tab PO BIDM [facility] Stop: 11/18/20 16:59 Last Admin: 11/13/20 09:01 Dose: 1 tab Documented by: Ascorbic Acid (Ascorbic Acid 500 Mg Tab) 500 mg PO DAILY [facility] Stop: 12/07/20 08:59 Last Admin: 11/13/20 09:00 Dose: 500 mg Documented by: Aspirin (Aspirin 81 Mg Ectab) 81 mg PO QAM [facility] Stop: 12/06/20 15:23 Last Admin: 11/13/20 09:00 Dose: 81 mg Documented by: Dextrose (Dextrose 50% 50 Ml Syringe) 25 - 50 ml IV UD PRN; Protocol PRN Reason: Hypoglycemia Protocol Stop: 12/06/20 15:29 Enoxaparin Sodium (Enoxaparin 100 Mg/1ml Syr) 100 mg SQ DAILY@1030 [facility] Stop: 12/10/20 10:29 Last Admin: 11/12/20 09:30 Dose: 100 mg Documented by: [facility]urosemide ([facility]semide 80 Mg Tab) [facility] Stop: 12/07/20 08:59 Last Admin: 11/13/20 08:59 Dose: 80 mg Documented by: Gabapentin (Gabapentin 100 Mg Cap) 200 mg PO HS [facility] Stop: 12/06/20 20:59 Last Admin: 11/12/20 21:54 Dose: 200 mg Documented by: Glucagon (Glucagon For Inj 1 Mg Vial) 1 mg IM UD PRN; Protocol PRN Reason: Hypoglycemia Protocol Stop: 12/06/20 15:29 Glucose (Glucose 40% Gel 15 Gm Tube) 15 - 30 gm PO UD PRN; Protocol PRN Reason: Hypoglycemia Protocol Stop: 12/06/20 15:29 Glucose (Glucose 10 Tabs/Tube) 4 - 8 tabs PO UD PRN; Protocol PRN Reason: Hypoglycemia Protocol Stop: 12/06/20 15:29 Insulin Aspart (Insulin Aspart 100 Units/Ml 3 Ml Pen) 0 units SC [facility]; Protocol Stop: 12/06/20 16:29 Last Admin: 11/13/20 08:56 Dose: 12 units Documented by: Insulin Glargine (Insulin Glargine Solostar 100 Units/Ml 3 Ml Pen) 0 units SC BID [facility]; Protocol Stop: 12/12/20 20:59 Last Admin: 11/13/20 08:58 Dose: 300 units Documented by: Levothyroxine Sodium (Levothyroxine Sodium 75 Mcg Tablet) [facility]: 12/07/20 06:29 Last Admin: 11/13/20 06:00 Dose: 75 mcg Documented by: Miconazole Nitrate (Miconazole Nitrate Powder 43 Gm) 1 appln EXT UD PRN PRN Reason: SKIN FOLDS IRRITATION Stop: 12/09/20 12:19 Miscellaneous (Carbohydrates For Hypoglycemia ) 15 - 30 gm PO UD PRN PRN Reason: Hypoglycemia Treatment Stop: 12/06/20 15:29 Miscellaneous Information (Pharmacy Glycemic Mgmt Consult) 1 ea N/A [facility] [place]; Protocol Stop: 12/06/20 13:59 Morphine Sulfate (Morphine Sulfate 4 Mg/Ml 1 Ml Carp\\Vial) 4 mg IV Q30M PRN PRN Reason: Pain Stop: 11/20/20 09:52 Last Admin: 11/08/20 10:44 Dose: 4 mg Documented by: Ondansetron HCl (Ondansetron Inj 2 Mg/Ml 2 Ml Vial) 4 mg IV Q6H PRN PRN Reason: Nausea Stop: 12/06/20 15:23 Prednisone (Prednisone 10 Mg Tablet) 30 mg PO [facility] Stop: 12/12/20 08:59 Last Admin: 11/13/20 09:00 Dose: 30 mg Documented by: Senna/Docusate Sodium (Docusate Sodium/Senna 50/8.6mg Tab) 1 tab PO [facility] Stop: 12/09/20 12:14 Last Admin: 11/13/20 09:00 Dose: Not Given Documented by: Vitamin D (Cholecalciferol 1,000 Units 25 Mcg Tab) 2,000 units PO MoWeFr@0900 [facility] Stop: 12/07/20 08:59 Last Admin: 11/11/20 08:12 Dose: 2,000 units Documented by: Zinc Acetate/Diphenhydramine (Diphenhydramine 2%/Zinc 0.1% Cream 28gm Tube) 1 appln EXT Q2H PRN PRN Reason: Itching Stop: 12/10/20 04:43 Last Admin: 11/10/20 06:16 Dose: 1 appln Documented by: PG Care Time/CCT Total # of Minutes Spent Total Time Spent: 32 Total Time Spent with Patient: Total time spent is greater than 50% in coordination of care (as documented) at patient's floor/unit and/or counseling patient: Coding Level of Care Code 26282 Subseq Hosp Care Lvl 3 (25 - SIGNIFICANT, SEPARATELY IDENTIFIABLE ) Diagnoses Cellulitis, leg L03.119 Superficial venous thrombosis of arm I82.619 Gouty arthritis M10.9 Generalized osteoarthritis of multiple sites M15.9 Hypertension I10 Constipation K59.00 Hyperlipidemia E78.5 Hypothyroidism E03.9 Peripheral neuropathy G62.9 Retinal detachment H33.20 Chronic venous insufficiency I87.2 Anemia D64.9 Anemia type: unspecified type Diabetes mellitus E11.9 DVT prophylaxis Z29.9 (1) Anemia Anemia type: unspecified type Qualified Code(s): D64.9 - Anemia, unspecified
[2020-11-13] MEDS: ENOXAPARIN 100 MG/1ML SYR SQ SCH (12:42)
--- NOTE | 2020-11-13 14:00 | Pharmacy Report ---
Pharmacy Glycemic Short Note 2 - Date of Service November 13, 2020 - Glycemic Short BSG Results (Last 24 hours): 11/12/20 11/12/20 11/13/20 17:22 20:38 08:13 POC Glucose 204 H 193 H 78 11/13/20 12:11 POC Glucose 106 H OUTPATIENT ANTIDIABETIC REGIMEN: * Novolin 70/30 30-40 units BID * A1c = 6.4% 07/05/20 ASSESSMENT: 11/13: * Dana received a total of 109 units of insulin yesterday (50 units basal + 59 u nits bolus) * BSGs were uncontrolled: [phone] mg/dL * Fasting BSG dropped significantly today to 78 mg/dL * Given this and reduction in prednisone dose starting tomorrow, will empirically reduce Lantus * Tightened CF and CR as well given postprandial hyperglycemia and poor correction 11/11: * Patient received 84 units of insulin yesterday (30 units of basal + 54 units of bolus) * Fasting BSG of 99 mg/dL, much improved since increase in basal yesterday, continue * CF/CR tightened yesterday at dinner time, no changes for now, patient remains on Prednisone 20mg PO Daily * will need to loosen CF/CR as steroids taper/DC 11/10: * Patient received 65 units of insulin yesterday (24 units of basal + 41 units of bolus) * Fasting BSG of 190 mg/dL remains above goal -increase basal * Post prandial BSGs are elevated prior to lunch and bedtime, continue for now, CR tightened yesterday PLAN FOR INPATIENT GLYCEMIC CONTROL: * Basal insulin - decreased * Lantus 15 units SQ BID * Bolus insulin - tightened * NovoLog per scale ACHS or Q6hrs while NPO * Goal Range: Low 110 mg/dL - High 140 mg/dL * Correction Factor: 10 mg/dL/unit * Nutritional / Prandial insulin per carb ratio of 1 unit per 3 grams CHO consumed PLAN FOR DISCHARGE: * HbA1c from this admission is 7% which is at goal for this patient. * No changes recommended to outpatient regimen upon discharge as long as patient is not experiencing any hypoglycemia at home.
[2020-11-13] MEDS: GABAPENTIN 100 MG CAP PO SCH (21:35)
[2020-11-14] MEDS: LEVOTHYROXINE SODIUM 75 MCG TABLET PO SCH (05:54)
[2020-11-14 06:04] LABS: Hematocrit (blood only) 30.6 % (37-47); Hemoglobin 9.7 g/dL (12.0-16.0); Mean Corpuscular Hemoglobin 30.3 pg (25-34); Mean Corpuscular Hgb Conc 31.7 g/dL (32-36); Mean Corpuscular Volume 95.6 fL (80-100); Mean Platelet Volume 10.3 fL (7.4-10.4); Platelet Count 226 K/uL (130-400); RDW Coefficient of Variation 14.6 % (11.5-14.5); RDW Standard Deviation 50.1 fL (36.4-46.3); White Blood Count 12.82 K/uL (4.8-10.8)
[2020-11-14 06:30] LABS: Calcium 8.8 mg/dl (8.5-10.1); Creatinine Clr Calc Pharmacy 42.2 ml/min; Est GFR (African American) 50.6 ml/min; Est GFR (Non-African American) 43.7 ml/min; Potassium 3.7 mmol/L (3.5-5.1)
--- NOTE | 2020-11-14 08:15 | Hospitalist Progress Note ---
Date of Service November 14, 2020 Assessment & Plan Admission and Anticipated Discharge Date Admission Date: November 08, 2020 Results & Data Results & Data ([facility]) Vital Signs (Past 12 Hours) Vital Signs Temp Pulse Resp BP Pulse Ox 11/14/20 07:55 36.5 C 62 18 144/71 H 96 11/13/20 22:42 36.3 C L 63 16 145/68 H 99 Laboratory Results 11/14/20 11/14/20 11/13/20 Range/Units 05:42 05:42 20:47 WBC 12.82 H (4.8-10.8) K/uL RBC 3.20 L (4.2-5.4) M/uL Hgb 9.7 L (12.0-16.0) g/dL Hct 30.6 L (37-47) % MCV 95.6 (80-100) fL MCH 30.3 (25-34) pg MCHC 31.7 L (32-36) g/dL RDW Std Deviation 50.1 H (36.4-46.3) fL RDW Coeff of Brian 14.6 H (11.5-14.5) % Plt Count 226 (130-400) K/uL MPV 10.3 (7.4-10.4) fL Sodium 142 (136-145) mmol/L Potassium 3.7 (3.5-5.1) mmol/L Chloride 108 H (98-107) mmol/L Carbon Dioxide 29 (21-32) mmol/L Anion Gap 5.0 (3-11) BUN 44 H (7-18) mg/dl Creatinine 1.15 (0.6-1.2) mg/dl Est Cr Clr Drug Dosing 42.2 ml/min Est GFR ( Amer) 50.6 ml/min Est GFR (Non-Af Amer) 43.7 ml/min BUN/Creatinine Ratio 38.0 H (10-20) Glucose 84 (70-99) mg/dl POC Glucose 127 H (70-99) mg/dl Calcium 8.8 (8.5-10.1) mg/dl 11/13/20 11/13/20 Range/Units 17:10 12:11 WBC (4.8-10.8) K/uL RBC (4.2-5.4) M/uL Hgb (12.0-16.0) g/dL Hct (37-47) % MCV (80-100) fL MCH (25-34) pg MCHC (32-36) g/dL RDW Std Deviation (36.4-46.3) fL RDW Coeff of Brian (11.5-14.5) % Plt Count (130-400) K/uL MPV (7.4-10.4) fL Sodium (136-145) mmol/L Potassium (3.5-5.1) mmol/L Chloride (98-107) mmol/L Carbon Dioxide (21-32) mmol/L Anion Gap (3-11) BUN (7-18) mg/dl Creatinine (0.6-1.2) mg/dl Est Cr Clr Drug Dosing ml/min Est GFR ( Amer) ml/min Est GFR (Non-Af Amer) ml/min BUN/Creatinine Ratio (10-20) Glucose (70-99) mg/dl POC Glucose 149 H 106 H (70-99) mg/dl Calcium (8.5-10.1) mg/dl PG Care Time/CCT Total # of Minutes Spent Total Time Spent with Patient: Total time spent is greater than 50% in coordination of care (as documented) at patient's floor/unit and/or counseling patient: Coding
[2020-11-14] MEDS: ASCORBIC ACID 500 MG TAB PO SCH (08:19)
[2020-11-14] MEDS: ASPIRIN 81 MG ECTAB PO SCH (08:19)
[2020-11-14] MEDS: allopurinoL 100 MG TAB PO SCH (08:19)
[2020-11-14] MEDS: AMOXICILLIN/CLAVULANATE 875 MG TAB PO SCH ×2 (08:19→16:33)
[2020-11-14] MEDS: CHOLECALCIFEROL 1,000 UNITS 25 MCG TAB PO SCH (08:20)
[2020-11-14] MEDS: FUROSEMIDE 80 MG TAB PO SCH (08:20)
[2020-11-14] MEDS: INSULIN GLARGINE SOLOSTAR 100 UNITS/ML 3 ML PEN SC SCH (08:21)
[2020-11-14] MEDS: DOCUSATE SODIUM/SENNA 50/8.6MG TAB PO SCH (08:22)
[2020-11-14] MEDS: INSULIN ASPART 100 UNITS/ML 3 ML PEN SC SCH ×2 (08:23→12:38)
[2020-11-14] MEDS ORDERED: predniSONE 20 MG TAB PO SCH (09:00)
[2020-11-14] MEDS ORDERED: INSULIN GLARGINE SOLOSTAR 100 UNITS/ML 3 ML PEN SC SCH (09:00)
--- NOTE | 2020-11-14 10:25 | Discharge Summary ---
Date of Service November 14, 2020 Admission HPI Per Admitting Provider Dana is an 85-year-old female with a past medical history of severe left knee osteoarthritis, left knee septic arthritis with Pseudomonas, chronic venous stasis laterally, hypertension, CKD with acute renal failure 2/2 ATN following cefepime treatment resolved, and diabetes mellitus who presents with 1 week of worsening swelling, warmth, erythema of her left lower extremity and increased ankle pain. Dana reports her symptoms began about 1 week ago when her left leg began to get more red and warm with redness spreading up from her left leg towards the knee and thigh. She reports she had some chills, but no night sweats does not think she had a fever. She reports she has not been able to put weight on her left leg due to pain at her ankle. She reports that she has difficulty controlling her left leg at baseline due to congenital hip problems but is normally able to ambulate with a walker at home. She is able to bend and extend her knee, reports she has pain at baseline from arthritis but this has not changed. She has had increased pain in her ankle with dorsiflexion/plantarflexion which is new. She endorses increased swelling of her left extremity on top of the normal bilateral extremity swelling. Denies open ulcers, notes that sometimes fluid will be from her legs at baseline. She took her Synthroid this morning, otherwise has not taken medications today. No recent sick contacts. 5/10 ac hy/sharp pain in the L ankle, denies calf tenderness. History of left knee septic arthritis with Pseudomonas, treated with cefepime which was discontinued following the development of ATN and kidney failure which resolved. Patient reports distant history of MRSA, with no recent MRSA infections in the last year. Medical History: Reviewed Medications: Reviewed Surgical History: Reviewed Allergies: Reviewed. Pertinent positive ATN following cefepime administration, superficial skin reaction to topical sulfa in the past. Social History:Denies tobacco, alcohol, recreational drug use. Lives at home with her , ambulates with a walker. Has family that helps her at home. Code Status:DNR/DNI, discussed with patient. 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 Decreased acuity in right eye at baseline. No acute change in vision per patient. ENT: Denies ear pain, sore throat, sinus pain Cardiovascular: Denies Chest pain, chest pressure, palpitations. Chronic venous stasis at baseline. Respiratory: Denies shortness of breath, sputum production, difficulty breathing. Endorses some intermittent baseline cough, no recent change. 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 Endorses acute changes noted in HPI. Integumentary: The HPI Neurological: Denies headache. Endoreses neuropathy at baseline, no change in numbness tingling Principal Diagnosis Cellulitis Discharge Exam Constitutional: well developed, + morbidly obese and comfortable; no acute distress Neck: trachea midline, no thyromegaly ENT: mmm Respiratory: normal respiratory effort, lungs clear to auscultation (diminished in bases, improved) Cardiovascular: Rate/Rhythm: regular rate and regular rhythm Heart Sounds: normal S1 and normal S2; no murmur Extremities: normal capillary refill and + edema (chronic in legs but reported at baseline for her, with associated scaling/venous stasis changes) Gastrointestinal (Abdomen): normal bowel sounds, soft, nontender, no hepatosplenomegaly Musculoskeletal: no cyanosis or clubbing, extremities motor strength 5/5 Head/Neck/Chest: normocephalic, head atraumatic and neck supple Extremities: + abnormal strength (improved and got herself back from bedside commode) Ankle: + joint line tenderness (ankle) (less tender) Skin: normal turgor, + rash, + crusts, + dry skin and + erythema (venous stasis changes bilaterally, worse on left but improved overall) Neurologic: CN's II-XI intact bilaterally, normal sensation to monofilament, moves all extremities and awake; no focal motor deficits and not confused Discharge Data Allergies Allergy/AdvReac Type Severity Reaction Status Date / Time cefepime Allergy Severe Acute Verified 11/06/20 10:23 interstitial nephritis Sulfa (Sulfonamide Allergy Intermediate BLISTERS Verified 11/06/20 10:23 Antibiotics) Consultations 11/06/20 11:29 ED Decision to Admit Stat Ordered Studies Knee X-Ray 11/06/20 09:45 XR knee LT 1 or 2V routine HISTORY: 85 years-old Female pain, swelling acute pain and swelling of the left knee COMPARISON: Left knee radiographs 03/15/2020 TECHNIQUE: 2 views of the left knee FINDINGS: Unchanged lateral bowing of the distal femoral diaphysis with linear band of sclerosis suggestive of chronic fracture. Moderate medial and patellofemoral with mild to moderate lateral compartment osteoarthritis with moderate size joint effusion. No acute fracture or dislocation. Diffuse soft tissue prominence of the imaged lower extremity. Arterial calcifications. IMPRESSION: 1. Moderate joint effusion without acute fracture or dislocation. 2. Chronic findings as above. ACT 112: Negative or not required by law. The above report was generated using voice recognition software. It may contain grammatical, syntax or spelling errors. Electronically signed by: Jay Starr M.D. 11/06/2020 10:08 AM Foot X-Ray 11/06/20 15:24 XR foot LT min 3V routine HISTORY: 85 years-old Female ?L osteo chronic left foot pain COMPARISON: None TECHNIQUE: 3 views of the left foot FINDINGS: Demineralized appearance of the bones. Diffuse soft tissue prominence with advanced multifocal osteoarthritis and arterial calcifications. Soft tissue swelling is most pronounced within the dorsal forefoot. No acute fracture or dislocation. Prominent subcortical cystic changes of the first metatarsal head. No definite acute osseous erosions identified. IMPRESSION: Soft tissue swelling without acute fracture or definite acute osseous erosion identified. ACT 112: Negative or not required by law. The above report was generated using voice recognition software. It may contain grammatical, syntax or spelling errors. Electronically signed by: Jay Starr M.D. 11/06/2020 3:59 PM Venous Doppler Study 11/06/20 15:24 US venous doppler LE LT CLINICAL HISTORY: r/o LLE dvt COMPARISON STUDY: March 14, 2020 FINDINGS: Real-time and color flow Doppler imaging were performed. Flow was seen within the femoral, popliteal and calf veins with no intraluminal thrombus de monstrated. The saphenous vein is patent. Visualization of the calf veins is limited due to subcutaneous edema Multiple lymph nodes within groin region are seen, largest is measuring 2.6 x 1.3 x 2.1 mm in size. IMPRESSION: No evidence of deep venous thrombosis. ACT 112: Negative or not required by law. The above report was generated using voice recognition software. It may contain grammatical, syntax or spelling errors. Electronically signed by: Natasha Oshea DO 11/07/2020 7:00 AM Extremity Venous Study 11/09/20 12:17 LEFT UPPER EXTREMITY VENOUS DOPPLER ULTRASOUND CLINICAL HISTORY: redness and swelling COMPARISON STUDY: Left upper extremity venous Doppler ultrasound May 11, 2020. FINDINGS: The left internal jugular, subclavian, axillary, brachial, radial and ulnar veins are patent. Note is made of superficial thrombus within the left cephalic vein within the antecubital fossa which extends for 3.3 cm in length. IMPRESSION: 1. Superficial thrombus within the left cephalic vein within the antecubital fossa which extends for 3.3 cm in length. 2. No deep venous thrombus within the left upper extremity. ACT 112: Negative or not required by law. Electronically signed by: Stanley Kwong M.D. 11/09/2020 3:22 PM Hospital Course (1) Cellulitis, leg: Left lower extremity Nonpurulent Diabetic cellulitis Patient did have history of left septic knee in the past however imaging admission clinical exam finding is warm/swollen/tender knee to palpation was felt to be more of a diabetic cellulitis. Did not note any fractures or dislocation but did note soft tissue dominance diffusely to left lower extremity with arterial calcifications. Left ankle did have some increased pain and decreased range of motion with an elevated uric acid and the patient was treated with colchicine x2 doses and started on prednisone with a quick taper and was started on allopurinol every other day for prevention which she was supposed to do in the past for gouty arthritis Patient had great response with IV Zosyn which was deescalated to Augmentin twice daily and patient is to complete 10-day course of treatment which would end on 11/16. Patient states redness is back to baseline and was nonpainful on exam Venous Doppler was negative for DVT however patient did have an upper extremity Doppler done with a superficial thrombus and was placed on Lovenox 100 subcu daily while inpatient but no need for further anticoagulation discharge Patient initially was to go to rehab however her wishes were to return home where she has medical equipment already available and support of her . Had repeat therapy evaluations day of discharge and with the treatment of her gouty arthritis with the above medications the patient was able to ambulate with minimal assistance and felt safe to return home with home health. Case management arranged home health for [facility] (2) Superficial venous thrombosis of arm: removed IV from left arm, area of thrombus is 3cm, cephalic vein elevate on pillow placed on Lovenox 100mg daily while inpatient. The arm continued to have less swelling less redness and was not hot or tender on examination and patient will not need any anticoagulation discharge Venous Doppler lower extremities negative for DVT as above (3) Gouty arthritis: colchicine 0.6mg on 11/08 and 11/09 prednisone 30mg daily which was decreased to 20 mg on 11/14 and continued through 11/15 decreased to 10 mg for the through to complete taper Patient was also started on allopurinol 100 mg every other day and this was continued discharge to prevent recurrence.. Recommend that she follow-up with her primary care about obtaining a repeat uric acid level in 1 to 2 weeks as an outpatient pain much better, able to stand on ankle past three days --therapy okay to go home with home health as above (4) Generalized osteoarthritis of multiple sites: Tylenol 650 mg every 4 hours as needed suspect gouty arthritis, h/o such in Apr 2020 was supposed to be on Allopurinol 100mg QOD --this was started while inpatient and continued at discharge colchicine 0.6mg x 2 separate doses, Prednisone 30mg daily and decreased to 20mg for today and tomorrow and will complete with 3 days of 10 mg as above cannot use NSAIDs due to renal function (5) Hypertension: Normotensive Historical, not on home antihypertensives. Patient poor historian of medications Vitals per protocol Continued aspirin 81 mg daily (6) Constipation: given Senokot and Miralax daily Moving her bowels no need for further stool softener (7) Hyperlipidemia: Continued aspirin 81 mg daily No home statin (8) Hypothyroidism: Continued Synthroid 75 mcg daily Outpatient TSH normal within last 3 months (9) Peripheral neuropathy: Continued gabapentin 200 mg nightly (10) Retinal detachment: Vision at baseline, no acute change Noted, no acute management at this time (11) Chronic venous insufficiency: Chronic, bilateral Elevate legs at least 20 minutes 3 times daily May use light compression of right lower extremity --discussed with patient that once current infection is resolved she should continue to utilize these bilaterally Continued Lasix daily No JVD, no signs of cardiogenic fluid overload (12) Anemia: Hemoglobin 9.7 when last checked No personal or family history of colorectal cancer. Patient has deferred colon cancer screening and colonoscopies in the past after risk/benefit discussion. She reports she has needed IV iron in the past, denies any active bleeding (13) Diabetes mellitus: Last A1c 6.4% On 70/30 home insulin 50 units BID Converted to Lantus BID per protocol, SSI correction factor 1:25, ratio 1:8. will give some NPH with Prednisone 30mg Glucose checks AC/at bedtime sugars stable, no extreme highs or lows resumed 70/30 BID on discharge Quick prednisone taper as above which should not affect sugars too much 10 mg dose. She only has one further day at 20 mg as above (14) DVT prophylaxis: Lovenox With treatment of her gouty arthritis patient was able to make strides with therapy and recommendations were to return home with home health as the patient initially wished. Case management has arranged for [facility] home health to assist the patient starting this week. She has an additional 2 days past today to complete her Augmentin for her lower extremity cellulitis.. She should follow-up with her primary care provider next week to monitor progress I certify that this patient is under my care and that I, or a physicians field assistant working with me, had a face to-face encounter that meets the home health [id number] encounter requirements with this patient. The encounter with the patient was in whole, or in part, for the following medical condition, which is the primary reason for home health care (list medical condition): L Leg cellulitis and weakness I certify that, based on my findings, the following services are medically necessary home health services: My clinical findings support the need for the above services because: PT Assessment for Endurance / Balance / Strength PT Eval for Safety and Mobility PT Eval for Safety, Gait Training, Assistive Devices PT Gait and Balance Training, Strengthening and Safety Skilled Nsg Assessment Skilled Nsg Assessment Surgical Incision / Wound Further, I certify that my clinical findings support that this patient is homebound (i.e. absences from home require considerable and taxing effort and are for medical reasons or yazidism services or infrequently or of short duration when for other reasons) because: Assistance of 1 Person for Ambulation/Activities Supportive Aid - Walker Certification for Home Health Services: Based on the above findings, I certify that this patient is confined to the home and needs intermittent care home care, physical therapy and/or speech therapy or continues to need occupational therapy. The patient is under my care, and I have initiated the establishment of the plan of care. This patient will be followed by a physician who will periodically review the plan of care. Total Time Total Time Spent Total Time Spent (In Minutes): 65 Discharge Plan Discharge Items Patient Disposition: Home - Home Health Services Reason For Visit: left cellulitis Discharge Diagnosis: Cellulitis Condition on Discharge: Fair Goals: You have been hospitalized for an acute medical problem. During your stay at [facility], we have made an effort to correct the problem that brought you to the hospital while keeping you as comfortable as possible. Medications were used to bring your condition under control and your discharge instructions will include directions for any medications you should take after leaving the hospital. Please make sure you see your Primary Care Provider as part of your follow up plan. Activity: Resume your previous activity Non-emergency contact: Primary Care Provider Call non-emergency contact if: you have any medication questions, your symptoms worsen and your pain is not controlled Follow-up/Referrals: Narinder Caldwell MD [Primary Care Provider] - 11/21/20 2:15 pm (Hospital F/U appt with Yoana White PA-C) Diet: Carb Consistent or DM2 and Heart Healthy Addtl Attending Provider Instructions: You have been hospitalized for cellulitis. You were treated with IV antibiotics and are to continue Augmentin 1 tablet by mouth TWICE daily through 11/16. This means you have another dose this evening and will continue for another two days to complete the course. Regarding the pain in your ankle/mobility -- you were treated for gouty arthritis with colchicine for the acute phase and prednisone which will continue 20mg for tomorrow, then decrease to 10mg daily for an additional three days. You will be started on allopurinol 100mg by mouth EVERY OTHER DAY to prevent recurrence in the future. You were evaluated by therapy and decision was made that you were stable for discharge with home health. You will need to follow up with your PCP in the next week to monitor your progress. Please return to the emergency department with any worsening redness, fever, pain, or for any other symptoms that are concerning for you. It has been a pleasure being a part of the medical team providing for you while you have been in the hospital.Take! Pending Studies at Discharge: No Stand-Alone Forms: My [facility] Medications and DC Order Prescriptions: New prednisone 20 mg Tablet 20 mg PO QAM Qty: 5 RF: 0 amoxicillin-pot clavulanate [Augmentin] 875-125 mg Tablet 1 tab PO BIDM Qty: 5 RF: 0 allopurinol 100 mg Tablet 100 mg PO Q2D@0900 Qty: 15 RF: 0 Anti-Itch(diphenhyd) with Zinc 2-0.1 % Cream 1 applic EXT Q2H PRN (Reason: itching) Qty: 15 RF: 0 Continued furosemide 80 mg tablet 80 mg PO QAM Qty: 90 RF: 3 gabapentin 100 mg capsule 200 mg PO HS Qty: 180 RF: 3 levothyroxine 75 mcg tablet 75 mcg PO QAM Qty: 90 RF: 3 insulin NPH and regular human 100 unit/mL (70-30) suspension See Rx Instructions SQ BID RF: 0 cholecalciferol (vitamin D3) [Vitamin D3] 2,000 unit capsule 2,000 unit PO 3XWK RF: 0 Multi-Vitamin HP/Minerals capsule 1 cap PO QAM RF: 0 omega [id number]-sfk-fish oil [Fish Oil] 1,000 mg (120 mg-180 mg) capsule 1 cap PO QAM RF: 0 aspirin [Aspirin Low Dose] 81 mg tablet,delayed release (DR/EC) 81 mg PO QAM RF: 0 ascorbic acid (vitamin C) [Vitamin C] 500 mg Tablet 500 mg PO DAILY RF: 0 acetaminophen [Tylenol Extra Strength] 500 mg Tablet 1,000 mg PO Q6H PRN (Reason: Pain) RF: 0 Discharge Orders: Discharge Order (Routine); Ordered 11/14/20 Ordered By: Jen Skinner/Other Patient Handouts: Preventing Pressure Sores Admission Data Admit Date/Time: 11/08/20 17:00 Attending Provider: Radha Harris Admit Provider: Gio Howard Primary Care Provider: Narinder Caldwell Other Providers: Gio Howard ; [facility],Care ; [facility],Home Healthcare Other Interventions: Discharge Summary Assessment (RN) Last Done: 11/14/20 12:51 Supervising Physician Co-Signing Physician Notes PA Supervision Note: I personally saw and examined the patient. I verified all brooks points and agree with KENDRICK Lucia with the following exceptions and/or additions: S-patient is feeling much better and feels the redness of her legs is returned to her chronic venous stasis changes with chronic rubor. She is eating and drinking, denies shortness of breath or chest pain. No diarrhea or abdominal pains. She is at her baseline with ambulation and is ready for discharge. O- Vitals reviewed Gen: AAOx3, NAD HEENT: Anicteric sclerae, EOMI CV: RRR no mgr nl S1S2 Pulm: CTAB no wcr Abd: +BS soft NT ND no masses or hernias Ext: Significant lymphedema left greater than right in legs bilaterally with rubor from feet all the way to the knees without heat or tenderness to the touch, dry cracked skin Skin: Rubor of the legs with dry cracked skin especially on the left distal leg Neuro: Full strength throughout [id number] female here with lower extremity cellulitis now much improved with antibiotic therapy, also treated for gouty arthritis of the left ankle Stable for discharge home on oral antibiotics Follow-up with PCP Coding Level of Care Code D/C DAY MANAGEMENT >30 MINS Diagnoses Cellulitis, leg L03.119 Superficial venous thrombosis of arm I82.619 Gouty arthritis M10.9 Generalized osteoarthritis of multiple sites M15.9 Hypertension I10 Constipation K59.00 Hyperlipidemia E78.5 Hypothyroidism E03.9 Peripheral neuropathy G62.9 Retinal detachment H33.20 Chronic venous insufficiency I87.2 Anemia D64.9 Anemia type: unspecified type Diabetes mellitus E11.9 DVT prophylaxis Z29.9
[2020-11-14] MEDS: ENOXAPARIN 100 MG/1ML SYR SQ SCH (10:32)
== END 2020-11-14 17:03 | disposition home health service (06) | DRG 603 ==
LOC: 3E 09:22 → ED 09:22 → SUATTDRO 12:37 → 3E 14:40 → SUATTDRO 11-08 17:00

== ENCOUNTER 2021-05-18 14:55 | Observation (INO) ==
[2021-05-18 16:28] LABS: Basophils # (auto) 0.02 K/uL (0-0.2); Basophils % (auto) 0.2 %; Eosinophils # (auto) 0.35 K/uL (0-0.5); Eosinophils % (auto) 3.2 %; Hematocrit (blood only) 33.6 % (37-47); Hemoglobin 10.9 g/dL (12.0-16.0); Immature Granulocytes # (auto) 0.05 K/uL (0.00-0.02); Immature Granulocytes % (auto) 0.5 %; Lymphocytes # (auto) 2.96 K/uL (1.2-3.4); Lymphocytes % (auto) 27.1 %; Mean Corpuscular Hemoglobin 31.5 pg (25-34); Mean Corpuscular Hgb Conc 32.4 g/dL (32-36); Mean Corpuscular Volume 97.1 fL (80-100); Mean Platelet Volume 10.9 fL (7.4-10.4); Monocytes # (auto) 0.56 K/uL (0.11-0.59); Monocytes % (auto) 5.1 %; Neutrophils # (auto) 6.98 K/uL (1.4-6.5); Neutrophils % (auto) 63.9 %; Platelet Count 194 K/uL (130-400); RDW Coefficient of Variation 14.9 % (11.5-14.5); RDW Standard Deviation 52.5 fL (36.4-46.3); Red Blood Count 3.46 M/uL (4.2-5.4); White Blood Count 10.92 K/uL (4.8-10.8)
[2021-05-18 16:39] LABS: Partial Thromboplastin Ratio 1.3; Partial Thromboplastin Time 33.3 Seconds (21.0-31.0); Prothrombin Time 10.3 Seconds (9.0-12.0)
[2021-05-18 16:54] LABS: Alanine Aminotransferase 14 U/L (7-52); Albumin Globulin Ratio 1.1 (0.9-2); Albumin Level 3.6 gm/dl (3.4-5.0); Alkaline Phosphatase 79 U/L (34-104); Anion Gap 7 (3-11); Aspartate Aminotransferase 19 U/L (13-39); Bilirubin,Total 0.3 mg/dl (0.2-1.0); Blood Urea Nitrogen 26 mg/dl (6-23); Calcium 9.4 mg/dl (8.5-10.1); Carbon Dioxide 30 mmol/L (21-32); Chloride 102 mmol/L (98-107); Est GFR (African American) 43.6 ml/min; Est GFR (Non-African American) 37.6 ml/min; Globulin 3.3 gm/dl (2.5-4.0); Glucose 62 mg/dl (70-99(Fasting)); Magnesium 1.9 mg/dl (1.7-2.4); Potassium 3.3 mmol/L (3.5-5.1); Sodium 139 mmol/L (136-145); Total Protein 6.9 gm/dl (6.0-8.3)
[2021-05-18 17:15] LABS: Troponin I < 0.03 ng/ml (0-0.04)
--- NOTE | 2021-05-18 19:07 | Emergency Department Note ---
Impression & Plan Bilateral lower leg cellulitis, Hypokalemia, Anemia ED Provider Note NAME: WILLA SLAUGHTER AGE: 85 SEX: F : 1935 ARRIVES VIA: Walk-In INFORMANT: patient, ED PROVIDER(S): Brian Oliva MD Chief Complaint: Wound referral, leg wounds and cellulitis HPI: Patient does present as a referral from wound clinic due to concern for bilateral lower extremity cellulitis. The patient states that she most recently had cellulitis made about a year ago. Patient has any fevers chills chest pain shortness of breath. Patient has had chronic lower extremity edema but worsening associated swelling redness and breaking through the skin over the last several weeks to months. 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 Patient was seen there today and referred here for further evaluation and treatment. Patient also notes that she does have some ulcerations to the posterior aspect of the right lower extremity. Patient denies any chest pain shortness of breath nausea vomiting. Patient states she is compliant with her m edications and has a history of diabetes. Patient is insulin-dependent. Patient does have a remote history of requiring a brief period of dialysis but no longer requires it now. Patient is vaccinated for COVID and denies any alcohol tobacco or drug use. Patient states that her symptoms are gotten progressively worse with no remitting factors. ROS: See HPI for pertinent positives and negatives. A total of 10 systems were reviewed and otherwise negative. Past medical history: See below Surgical history: See below Social history: See below Physical Exam: GENERAL: NAD, wearing glasses, wearing a mask, non-toxic. EYE EXAM: Normal conjunctiva. PERRL, no anisocoria and EOM's grossly intact w/o pain. NECK: Supple, no nuchal rigidity, no adenopathy, non-tender. No signs of meningismus. LUNGS: Clear to auscultation. Normal chest wall mechanics. HEART: NSR, no MRG. ABDOMEN: Abdomen soft, non-tender, normo-active bowel sounds, no masses, no rebound or guarding. BACK: No CVA TTP. SKIN: No rashes and no bruising. UPPER EXTREMITIES: Upper extremities are grossly normal. LOWER EXTREMITIES: Significant edema and excoriations from the feet just distal to the knee bilaterally, 3 areas of ulceration on the posterior aspect of the right calf, wet-appearing does not appear to be overtly purulent. NEURO EXAM: A&O x3, cranial nerves II-XII grossly intact, normal speech, moves all 4 extremities, but with decreased mobility of the left lower extremity Differential diagnoses: Cellulitis, abscess, MRSA infection, DVT, necrotizing fasciitis, dermatitis, drug eruption, allergic reaction, as well as other pathologies. Course: Patient was seen and evaluated the bedside. Full history physical exam was performed. Imaging Studies: See Below Cardiac monitoring: An order was placed for continuous cardiac monitoring. The monitor shows a rate of 92 with sinus rhythm. MDM: Patient was seen as a referral from wound care due to concern for bilateral lower extremity edema. Patient does have significant cellulitic change in lymphedema and associated ulcerations to the posterior right calf. Blood work was obtained. The patient was ordered cefepime. Patient is a white count of 10 with a hemoglobin of 10.9. Patient's platelet count is unremarkable. Kidney function with a creat of 1.3. Patient did have a lower BSG at 62 and the patient is a diabetic and was ordered diabetic diet. Repeat [id number] 193. Patient's troponin is not detectable with urinalysis with leukocytes and whites but the patient does have numerous epithelial cells and never complained of any dysuria. Covid negative. I did speak with the on-call hospitalist Dr. Garcia and the patient was admitted to the medicine service. Past Med/Surg History Medical History Acute kidney injury Afib Cellulitis of right leg Central venous catheter in place Chronic back pain Chronic kidney disease, stage III (moderate) Congenital dislocation of hip Degenerative disc disease Diabetes mellitus IDDM DNR (do not resuscitate) Gouty arthritis History of breast cancer History of septic arthritis Obesity Osteoarthritis Pancreatitis SEPTEMBER 2018 Peripheral neuropathy BILATERAL FEET Pressure ulcer of right heel, stage 3 Stage III pressure ulcer of right buttock Surgical History History of cataract surgery BILATERAL History of cholecystectomy History of detached retina repair LEFT History of hip surgery LEFT HIP DISLOCATION SURGERY A CHILD (UNSUCCESSFUL) History of mastectomy RIGHT BREAST WITH 1 LYMPH NODE REMOVAL History of thyroidectomy REMOVAL OF GOITER Hx of tonsillectomy Status post debridement hip open wound Family History Unknown Cancer Father Bone cancer Mother Diabetes Daughter Diabetes Breast cancer Son Diabetes Sister Diabetes Grandmother (Paternal) Breast cancer Denies family history of Ovarian cancer Prostate cancer Myocardial infarction Colorectal cancer Social History Smoking Status: Never smoker Second Hand Exposure: No; Hx Alcohol Use: No Hx Substance Use: No Preferred Language: Cymro Communication Ability: Effective Visual Impairment: No Limitations Hearing Ability: Normal Sales Development Consultant Required: No Beliefs That Will Affect Care: None marital status: Current Living Situation: Spouse current occupational status: retired How many Children do You have: 2 Feels Safe at Home: Yes Childhood Exposure to Second-Hand Smoke: No caffeine: Yes during the past year weight has: remained stable Dental Care, Regularly: No Physical Activity Frequency: Does not Exercise Physical Activity Frequency Comment: Physical activity limited due to medical conditions Seatbelt Use: always Sunscreen Use: No Assistive Devices: Glasses, Walker and Wheelchair Allergies Allergies Allergy/AdvReac Type Severity Reaction Status Date / Time cefepime Allergy Severe Acute Verified 05/18/21 13:17 interstitial nephritis Sulfa (Sulfonamide Allergy Intermediate BLISTERS Verified 05/18/21 13:17 Antibiotics) Home Meds Home Medications Medication Instructions Recorded Confirmed aspirin 81 mg tablet,delayed 81 mg PO QAM 11/09/18 05/18/21 release (Aspirin Low Dose) cholecalciferol (vitamin D3) 50 2,000 unit PO 3XWK 11/09/18 05/18/21 mcg (2,000 unit) capsule (Vitamin D3) multivitamin,tx-minerals 1 cap PO QAM 11/09/18 05/18/21 (Multi-Vitamin HP/Minerals) omega 6-sjg-[id number]-fish oil 1,000 mg 1 cap PO QAM cap 11/09/18 05/18/21 (120 mg-180 mg) capsule (Fish Oil) ascorbic acid (vitamin C) 500 mg 500 mg PO DAILY 11/18/18 05/18/21 tablet (Vitamin C) acetaminophen 500 mg tablet 1,000 mg PO Q6H PRN 11/06/20 05/18/21 (Tylenol Extra Strength) Previous Rx's Medication Instructions Recorded furosemide 80 mg tablet 80 mg PO QAM #90 tab 06/22/20 gabapentin 100 mg capsule 200 mg PO HS #180 cap 06/29/20 levothyroxine 75 mcg tablet 75 mcg PO QAM #90 tab 07/19/20 diphenhydramine-zinc acetate 2 1 applic EXT Q2H PRN #15 g 11/14/20 %-0.1 % topical cream (Anti-Itch (diphenhydramine) with Zinc) allopurinol 100 mg tablet 200 mg PO DAILY #180 tab 05/04/21 insulin human U-100 NPH-regulr See Rx Instructions SQ BID #10 ml 05/18/21 70-30 mix 100 unit/mL subcutaneous susp Results & Data (ED) Vital Signs Vital Signs - 24 hr 05/18/21 15:09 05/18/21 19:36 05/18/21 19:56 Temperature 36.1 C L Temperature Source Temporal Artery Scan Pulse Rate 95 H 91 H Pulse Rate [Finger] 90 Respiratory Rate 20 18 18 Respiratory Effort / Characteristics Non-Labored Spontaneous Respiratory Depth Normal Blood Pressure 155/70 H Blood Pressure Mean 98 Pulse Oximetry 96 96 96 Oxygen Delivery Method Room Air Room Air Room Air Sepsis Recent Fever Within 48 Hours No Sepsis New/Unexplained Change in Mental Status No Sepsis Action Taken by Nursing No Action Required Home Medications Current Medication List: was personally reviewed by me Laboratory Data Attestation: I reviewed the patient's lab results. Result diagrams: 05/18/21 16:15 05/18/21 16:15 Lab Results 05/18/21 05/18/21 05/18/21 Range/Units 16:15 16:15 16:15 WBC 10.92 H (4.8-10.8) K/uL RBC 3.46 L (4.2-5.4) M/uL Hgb 10.9 L (12.0-16.0) g/dL Hct 33.6 L (37-47) % MCV 97.1 (80-100) fL MCH 31.5 (25-34) pg MCHC 32.4 (32-36) g/dL RDW Std Deviation 52.5 H (36.4-46.3) fL RDW Coeff of Brian 14.9 H (11.5-14.5) % Plt Count 194 (130-400) K/uL MPV 10.9 H (7.4-10.4) fL Immature Gran % (Auto) 0.5 % Neut % (Auto) 63.9 % Lymph % (Auto) 27.1 % Bowman % (Auto) 5.1 % Eos % (Auto) 3.2 % Baso % (Auto) 0.2 % Neut # (Auto) 6.98 H (1.4-6.5) K/uL Lymph # (Auto) 2.96 (1.2-3.4) K/uL Bowman # (Auto) 0.56 (0.11-0.59) K/uL Eos # (Auto) 0.35 (0-0.5) K/uL Baso # (Auto) 0.02 (0-0.2) K/uL Immature Gran # (Auto) 0.05 H (0.00-0.02) K/uL PT 10.3 (9.0-12.0) Seconds INR 1.0 (0.9-1.1) APTT 33.3 H (21.0-31.0) Seconds PTT Ratio 1.3 Sodium 139 (136-145) mmol/L Potassium 3.3 L (3.5-5.1) mmol/L Chloride 102 (98-107) mmol/L Carbon Dioxide 30 (21-32) mmol/L Anion Gap 7 (3-11) BUN 26 H (6-23) mg/dl Creatinine 1.30 H (0.6-1.2) mg/dl Est Cr Clr Drug Dosing Not Reportable Est GFR ( Amer) 43.6 ml/min Est GFR (Non-Af Amer) 37.6 ml/min BUN/Creatinine Ratio 20.0 (10-20) Glucose 62 L (70-99(Fasting)) mg/dl Calcium 9.4 (8.5-10.1) mg/dl Magnesium 1.9 (1.7-2.4) mg/dl Total Bilirubin 0.3 (0.2-1.0) mg/dl AST 19 (13-39) U/L ALT 14 (7-52) U/L Alkaline Phosphatase 79 (34-104) U/L Troponin I < 0.03 (0-0.04) ng/ml Total Protein 6.9 (6.0-8.3) gm/dl Albumin 3.6 (3.4-5.0) gm/dl Globulin 3.3 (2.5-4.0) gm/dl Albumin/Globulin Ratio 1.1 (0.9-2) SARS-CoV-2, RNA, NAAT (NEGATIVE) 05/18/21 Range/Units 19:58 WBC (4.8-10.8) K/uL RBC (4.2-5.4) M/uL Hgb (12.0-16.0) g/dL Hct (37-47) % MCV (80-100) fL MCH (25-34) pg MCHC (32-36) g/dL RDW Std Deviation (36.4-46.3) fL RDW Coeff of Brian (11.5-14.5) % Plt Count (130-400) K/uL MPV (7.4-10.4) fL Immature Gran % (Auto) % Neut % (Auto) % Lymph % (Auto) % Bowman % (Auto) % Eos % (Auto) % Baso % (Auto) % Neut # (Auto) (1.4-6.5) K/uL Lymph # (Auto) (1.2-3.4) K/uL Bowman # (Auto) (0.11-0.59) K/uL Eos # (Auto) (0-0.5) K/uL Baso # (Auto) (0-0.2) K/uL Immature Gran # (Auto) (0.00-0.02) K/uL PT (9.0-12.0) Seconds INR (0.9-1.1) APTT (21.0-31.0) Seconds PTT Ratio Sodium (136-145) mmol/L Potassium (3.5-5.1) mmol/L Chloride (98-107) mmol/L Carbon Dioxide (21-32) mmol/L Anion Gap (3-11) BUN (6-23) mg/dl Creatinine (0.6-1.2) mg/dl Est Cr Clr Drug Dosing Est GFR ( Amer) ml/min Est GFR (Non-Af Amer) ml/min BUN/Creatinine Ratio (10-20) Glucose (70-99(Fasting)) mg/dl Calcium (8.5-10.1) mg/dl Magnesium (1.7-2.4) mg/dl Total Bilirubin (0.2-1.0) mg/dl AST (13-39) U/L ALT (7-52) U/L Alkaline Phosphatase (34-104) U/L Troponin I (0-0.04) ng/ml Total Protein (6.0-8.3) gm/dl Albumin (3.4-5.0) gm/dl Globulin (2.5-4.0) gm/dl Albumin/Globulin Ratio (0.9-2) SARS-CoV-2, RNA, NAAT NEGATIVE (NEGATIVE) Administered Medications Gabapentin (Gabapentin 100 Mg Cap) 200 mg PO HS MALIK Stop: 06/17/21 21:52 Last Admin: 05/18/21 22:35 Dose: 200 mg Documented by: [id number] Heparin Sodium (Porcine) (Heparin Sod 5,000 Unit/0.5 Ml Vial) 5,000 units SQ Q8 MALIK Stop: 06/17/21 21:59 Last Admin: 05/18/21 22:34 Dose: 5,000 units Documented by: [id number] Insulin Aspart (Insulin Aspart Per Unit) 0 units SC ACHS MALIK Stop: 06/17/21 22:29 Last Admin: 05/18/21 22:32 Dose: 4 units Documented by: [id number] Cosigned by: [id number] Insulin Glargine (Insulin Glargine Solostar 100 Units/Ml 3 Ml Pen) 18 units SC BID MALIK Stop: 06/17/21 22:29 Last Admin: 05/18/21 22:31 Dose: 18 units Documented by: [id number] Cosigned by: [id number] Discontinued Medications Piperacillin Sod/Tazobactam Sod (Zosyn) 4.5 gm in 120 mls @ 240 mls/hr IV NOW ONE Stop: 05/18/21 19:44 Last Infusion: 05/18/21 20:25 Dose: 0 mls/hr Documented by: [id number] Admin: 05/18/21 19:38 Dose: 240 mls/hr Documented by: [id number] Discharge Plan Visit Data Chief Complaint: Swelling/Edema to Extremity Stated Complaint: SWOLLEN LEGS, OPEN WOUNDS LEAKINGM PAIN ED Provider: Brian Oliva Discharge Problem: Bilateral lower leg cellulitis, Hypokalemia, Anemia Patient Disposition: Admitted As Inpatient Discharge Instructions Interventions: ED Discharge Assessment Last Done: 05/18/21 21:08
[2021-05-18] MEDS ORDERED: PIPERACILL/TAZOBAC CONSULT ACTIVE PRN (19:15)
[2021-05-18] MEDS ORDERED: PIPERACILLIN/TAZOBACTAM 4.5 GM/120 ML BAG IV ONE (19:15)
--- NOTE | 2021-05-18 20:31 | History & Physical Report ---
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 Bilateral Lower Extremity Cellulitis with Evidence of Venous Stasis Ulcers Patient with complicated dermatologic history of the lower extremities, involving venous stasis/lymphedema in the context of previous left knee septic arthritis (Pseudomonas) and developmental dysplasia of the hip; patient also endorses MRSA infection in the past Wound care note from earlier today reviewed: Status post debridement in the clinic, recommending intravenous antibiotics Patient does not currently meet criteria for sepsis and does not appear septic on exam. Blood cultures were obtained in the ED, will follow up. Opt to cover for both Pseudomonas and MRSA given complex historycontinue Zosyn initiated in the ER, initiate Dapto for MRSA coverage Await wound culture obtained in ED Will order bilateral simple films of the lower extremities given peripheral neuropathy; ulcers do not appear deep, however given extent of patient's cellulitis/edema, favor to rule out any obvious bony destruction Consult wound care nurse: Appreciate insights, recommendations while here Consult PT/OTmoving forward, patient will likely need to receive lymphedema related therapy and compression stockings when appropriate Patient reporting minimal amounts of pain; Tylenol on board, can consider non- NSAID options if needed (given kidney function) Continue home Lasix 80 mg qAM (2) Lymphedema: Plan: Noted, as above (3) Chronic venous insufficiency: Plan: Noted, as above (4) Gouty arthritis: Plan: No evidence of acute gouty arthritis on my exam. History noted. Continue allopurinol (5) Stage 3b chronic kidney disease: Plan: Baseline creatinine appears to be around 22.3 of the patient's chart -- follows w/ [place]. Bhat[place] [facility] Last echocardiogram noted with LVEF 60 to 65% without significant valvular or pressure abnormalities Continue renal monitoring, avoid NSAIDs/nephrotoxic medication (6) Hypertension: Plan: History noted on chart. Is on Lasix for leg swelling, but otherwise no hypertensive medications Review of nephrology notes reveal that patient was previously on Benicar, but was stopped secondary to LISA Monitor while here (7) Hyperlipidemia: Plan: Noted, continue fish oil while here, not currently on a statin Should consider initiation of moderate to high intensity statin with history of diabetes in outpatient setting Check lipid panel with AM labs (8) Hypothyroidism: Plan: Noted. Continue levothyroxine (9) Peripheral neuropathy: Plan: Noted in the history of diabetes Will require regular podiatric care once discharged from the hospital for monitoring Diabetes management as below Management of lymphedema, cellulitis as above (10) Vitamin D deficiency: Plan: Noted in setting of CKD Continue supplementation (11) Diabetes mellitus: Plan: With known history of insulin-dependent diabetes -- last A1c 8.4% in April 2021 Utilizes insulin 70/30says approximately 75 twice daily On admission patient found to be mildly hypoglycemic to 64 In the setting of above illness, hypoglycemia on arrival, and somewhat unique insulin regimenwe will place pharmacy consult, appreciate aid/insight/recommendations while here Blood sugar goal: 100-140 Plan: Code: DNR/DNIconfirmed with the patient at bedside Dispo: MedSurg Prophylaxis: hep sq 5000 q8h Diet: Carb consistent History of Present Illness Primary Care Provider: Narinder Caldwell MD This is an 85-year-old female with a notable past medical history of bilateral lower extremity lymphedema, chronic venous insufficiency with history of venous stasis ulcers, 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 Patient was seen at wound clinic today, where her provider did note that her bilateral lower extremity ulcers with secondary cellulitis required debridement; they recommended referral to the ED and admission for IV antibiot ics. She noted to them at that time that she had had significant swelling within her lower extremities over the past 3 years, and over the last several months she has had increased drainage as well as wounds that have been difficult to heal despite [id number] antibiotics. She stated that over the past 2 weeks, there has been increased redness and swelling in both of her legs, associated with pain and moderate drainage. She has also noticed ulcers. She endorses a burning-like sensation that is tolerable. She reports taking Lasix for her legs. Medications were reviewed, which include allopurinol, aspirin, Lasix 80 mg daily, gabapentin, insulin, levothyroxine, vitamins. She endorses difficulty walking with her left leg, which is chronic and secondary to developmental dysplasia of the left hip. No recent changes. She denies any history of tobacco, alcohol, or recreational drug use. She does endorse a history of left knee gouty arthritis as well as infection requiring washout. She endorses history of left hip replacement secondary to developmental dysplasia of the left hip as a child. In the emergency department, patient was found to be mildly hypertensive with heart rates in the 90s to low 100s, normal RR on RA. Afebrile. Weight 104.3 kg (from 99.9 on 05/03). Labs were significant for mild leukocytosis to 10.9, persistent anemia, BUN 26/creatinine 1.3 (baseline appears ~1.3-1.5), BSG 62; normal LFTs, troponin negative. Covid negative. Blood cultures and left-sided wound culture were taken. ECG noted for prolonged QTc 510. She was started on Zosyn. Allergies Allergy/AdvReac Type Severity Reaction Status Date / Time cefepime Allergy Severe Acute Verified 05/18/21 13:17 interstitial nephritis Sulfa (Sulfonamide Allergy Intermediate BLISTERS Verified 05/18/21 13:17 Antibiotics) Home Medications Medication Instructions Recorded Confirmed Type aspirin 81 mg tablet,delayed 81 mg PO QAM 11/09/18 05/18/21 History release (Aspirin Low Dose) cholecalciferol (vitamin D3) 50 2,000 unit PO 3XWK 11/09/18 05/18/21 History mcg (2,000 unit) capsule (Vitamin D3) multivitamin,tx-minerals 1 cap PO QAM 11/09/18 05/18/21 History (Multi-Vitamin HP/Minerals) omega 6-ryo-jjv-fish oil 1,000 mg 1 cap PO QAM cap 11/09/18 05/18/21 History (120 mg-180 mg) capsule (Fish Oil) ascorbic acid (vitamin C) 500 mg 500 mg PO DAILY 11/18/18 05/18/21 History tablet (Vitamin C) furosemide 80 mg tablet 80 mg PO QAM #90 tab 06/22/20 05/18/21 Rx gabapentin 100 mg capsule 200 mg PO HS #180 cap 06/29/20 05/18/21 Rx levothyroxine 75 mcg tablet 75 mcg PO QAM #90 tab 07/19/20 05/18/21 Rx acetaminophen 500 mg tablet 1,000 mg PO Q6H PRN 11/06/20 05/18/21 History (Tylenol Extra Strength) diphenhydramine-zinc acetate 2 1 applic EXT Q2H PRN #15 g 11/14/20 05/18/21 Rx %-0.1 % topical cream (Anti-Itch (diphenhydramine) with Zinc) allopurinol 100 mg tablet 200 mg PO DAILY #180 tab 05/04/21 05/18/21 Rx insulin human U-100 NPH-regulr See Rx Instructions SQ BID #10 ml 05/18/21 05/18/21 Rx 70-30 mix 100 unit/mL subcutaneous susp Past Med/Surg History Medical History Acute kidney injury Afib Cellulitis of right leg Central venous catheter in place Chronic back pain Chronic kidney disease, stage III (moderate) Congenital dislocation of hip Degenerative disc disease Diabetes mellitus IDDM DNR (do not resuscitate) Gouty arthritis History of breast cancer History of septic arthritis Obesity Osteoarthritis Pancreatitis SEPTEMBER 2018 Peripheral neuropathy BILATERAL FEET Pressure ulcer of right heel, stage 3 Stage III pressure ulcer of right buttock Surgical History History of cataract surgery BILATERAL History of cholecystectomy History of detached retina repair LEFT History of hip surgery LEFT HIP DISLOCATION SURGERY A CHILD (UNSUCCESSFUL) History of mastectomy RIGHT BREAST WITH 1 LYMPH NODE REMOVAL History of thyroidectomy REMOVAL OF GOITER Hx of tonsillectomy Status post debridement hip open wound Family History Unknown Cancer Father Bone cancer Mother Diabetes Daughter Diabetes Breast cancer Son Diabetes Sister Diabetes Grandmother (Paternal) Breast cancer Denies family history of Ovarian cancer Prostate cancer Myocardial infarction Colorectal cancer Social History Smoking Status: Never smoker Second Hand Exposure: Yes (60 years ago); Do You Dip or Chew Tobacco: No; Hx Alcohol Use: No Hx Substance Use: No Preferred Language: German Communication Ability: Effective Visual Impairment: No Limitations Hearing Ability: Normal Rack Worker Required: No Beliefs That Will Affect Care: None marital status: Current Living Situation: Spouse current occupational status: retired How many Children do You have: 2 Other Information That Helps Us Care for You: No Feels Safe at Home: Yes Safety Concerns: Feels Safe At This Time Childhood Exposure to Second-Hand Smoke: No caffeine: Yes during the past year weight has: remained stable Dental Care, Regularly: No Physical Activity Frequency: Does not Exercise Physical Activity Frequency Comment: Physical activity limited due to medical conditions Seatbelt Use: always Sunscreen Use: No Assistive Devices: Denture - Upper, Denture - Lower, Glasses and Walker Review of Systems Review of Systems: as per HPI Physical Exam Physical Exam: General: Tired but otherwise well-appearing 85-year-old female no acute distress HEENT: NCAT. - Eyes - Sclera are white, anicteric, and without injection. PERRL. - Mouth - MMM with no tonsillar edema or exudates. - Neck - supple and without LAD. No JVD. Cardiac: Normal rate and regular rhythm; S1 and S2 present with no murmurs, rubs, or gallops. Pulmonary: Good respiratory effort with symmetric expansion of the chest. No use of accessory muscles. Lungs were clear to auscultation bilaterally with no crackles or wheezes. Abdominal: Normoactive bowel sounds. Abdomen was soft, nondistended, and non- tender to palpation. Extremities: There is significant erythematous and edematous changes within both of the bilateral lower extremities below the knee with 1+ pitting edema. There is also an appreciable superficial ulcer noted superior to the left lateral malleolus, as well as 3 superficial ulcers appreciated on the right posterior calf extending laterally with scant purulent drainage. Capillary refill is under 3 seconds. Sensation is reduced throughout, but grossly intact to light touch. Results & Data Results [facility] Vital Signs (Past 12 Hours) Vital Signs Temp Pulse Pulse Resp BP Pulse Ox 05/18/21 19:56 90 18 96 05/18/21 19:36 91 H 18 96 05/18/21 15:09 36.1 C L 95 H 20 155/70 H 96 Supervising Physician Co-Signing Physician Notes Patient seen and examined, chart reviewed, case discussed with Dr. Bhatt and I agree with the assessment and plan as above. In brief, patient is an 85yo female with chronic bilateral LE lymphedema, chronic venous stasis with ulceration, presenting with worsening edema, redness, ulceration. Patient was seen at the Wound Clinic today for ulcer debridement and was subsequently referred to the ER for ongoing management of cellulitis Patient is to have arterial studies performed as an outpatient Is to have lymphedema therapy arranged as well On exam she is afebrile, hypertensive, nontoxic in appearance Skin - BL LE with significant lymphedema with skin thickening, venous stasis changes with posterior ulceration present bilaterally, erythema and tenderness to palpation HEENT - NC/AT, PERRL, MMM, neck supple Heart - +S1/S2, regular Lungs - CTA Abd - +BS, soft, NT/ND Ext - No edema Labs and images reviewed. WBC=10.92 H/H = 10.9/33.6 Assessment/Plan Bilateral lymphedema, venous stasis with ulceration and cellulitis -Daptomycin and Zosyn -Wound care -PT/OT evaluation -Glycemic management - patient with low blood sugars of 62 on arrival. She is on 70/30 75u BID -Remainder as above Resident Activity Tracking Resident Involvement: Resident Care Provided Care Provided: Adult [facility]
[2021-05-18] MEDS ORDERED: ACETAMINOPHEN 325 MG TAB PO PRN (20:33)
[2021-05-18] MEDS ORDERED: ENOXAPARIN INJ 40 MG/0.4 ML SYR SQ STA (21:14)
--- NOTE | 2021-05-18 21:36 | XRay Report ---
XR tibia fibula LT 2V, XR tibia fibula RT 2V CLINICAL HISTORY: cellulitis, ulcers, neuropathy - ?bony involvement. COMPARISON STUDY: No previous studies for comparison. TECHNIQUE: AP and lateral bilateral lower leg views FINDINGS: Bones: There is no evidence for an acute fracture or dislocation. There is no lytic or blastic lesion . Joints: The joint spaces are maintained. The bones are in anatomic alignment. Soft tissues: There is diffuse soft tissue swelling of both lower extremities related to the patient' s body habitus. However, the degree of swelling is greater on the left than on the right correspondin g to the presence of underlying cellulitis as well. There is no radiopaque foreign body. IMPRESSION: No acute osseous pathology. Soft tissue swelling, left greater than right. ACT 112: Negative or not required by law. Electronically signed by: Dameon Meadows M.D. 05/18/2021 9:35 PM
[2021-05-18] MEDS ORDERED: ACETAMINOPHEN HOME PACK 500 MG TABLET PO PRN (21:53)
[2021-05-18] MEDS ORDERED: PHARMACY GLYCEMIC MGMT CONSULT PRN (21:53)
[2021-05-18 22:12] LABS: Appearance Urine Clear (Clear); Bacteria Urine Automated Negative (Negative); Bilirubin Urine Negative (Negative); Blood Urine Negative (Negative); Color Urine Yellow; Epithelial Cell Urine Auto >30 /lpf (0-5); Glucose Urine UA Negative (Negative); Ketones Urine Negative (Negative); Leukocyte Esterase Urine Trace (Negative); Nitrite Urine Negative (Negative); Protein Urine Negative (Negative); RBC Urine Automated 0-4 /hpf (0-4); Specific Gravity Urine 1.017 (1.000-1.030); Urobilinogen Urine Negative (Negative)
[2021-05-18] MEDS ORDERED: INSULIN GLARGINE SOLOSTAR 100 UNITS/ML 3 ML PEN SC SCH (22:30)
[2021-05-18] MEDS ORDERED: GLUCOSE 40% GEL 15 GM TUBE PO PRN (22:30)
[2021-05-18] MEDS ORDERED: GLUCOSE 10 TABS/TUBE PO PRN (22:30)
[2021-05-18] MEDS ORDERED: DEXTROSE 50% 50 ML SYRINGE IV PRN (22:30)
[2021-05-18] MEDS ORDERED: CARBOHYDRATES FOR HYPOGLYCEMIA PO PRN (22:30)
[2021-05-18] MEDS ORDERED: GLUCAGON FOR INJ 1 MG VIAL SQ PRN (22:30)
[2021-05-18] MEDS: INSULIN ASPART PER UNIT SC SCH (22:32)
[2021-05-18] MEDS: HEPARIN SOD 5,000 UNIT/0.5 ML VIAL SQ SCH (22:34)
[2021-05-18] MEDS: GABAPENTIN 100 MG CAP PO SCH (22:35)
[2021-05-19] MEDS ORDERED: INSULIN ASPART PER UNIT SC ONE (02:00)
[2021-05-19] MEDS: PIPERACILLIN/TAZOBACTAM 4.5 GM in DEXTROSE 5% 100 ML IV SCH ×3 (02:29→17:48)
[2021-05-19] MEDS ORDERED: POTASSIUM CHLORIDE CRTAB 20 MEQ TABCR PO STA (03:34)
--- NOTE | 2021-05-19 03:34 | Billing Data ---
Date of Service May 18, 2021 Coding Level of Care Code 49282 Initial Inpt Care Lvl 3
[2021-05-19] MEDS: HEPARIN SOD 5,000 UNIT/0.5 ML VIAL SQ SCH ×3 (06:06→21:15)
[2021-05-19] MEDS: LEVOTHYROXINE SODIUM 75 MCG TABLET PO SCH (06:09)
[2021-05-19 06:47] LABS: Basophils # (auto) 0.01 K/uL (0-0.2); Basophils % (auto) 0.2 %; Eosinophils # (auto) 0.28 K/uL (0-0.5); Eosinophils % (auto) 4.4 %; Hematocrit (blood only) 29.3 % (37-47); Hemoglobin 9.3 g/dL (12.0-16.0); Immature Granulocytes # (auto) 0.01 K/uL (0.00-0.02); Immature Granulocytes % (auto) 0.2 %; Lymphocytes # (auto) 1.12 K/uL (1.2-3.4); Lymphocytes % (auto) 17.5 %; Mean Corpuscular Hemoglobin 30.9 pg (25-34); Mean Corpuscular Hgb Conc 31.7 g/dL (32-36); Mean Corpuscular Volume 97.3 fL (80-100); Monocytes # (auto) 0.38 K/uL (0.11-0.59); Monocytes % (auto) 5.9 %; Neutrophils # (auto) 4.61 K/uL (1.4-6.5); Neutrophils % (auto) 71.8 %; Platelet Count 161 K/uL (130-400); RDW Coefficient of Variation 15.1 % (11.5-14.5); RDW Standard Deviation 53.3 fL (36.4-46.3); Red Blood Count 3.01 M/uL (4.2-5.4); White Blood Count 6.41 K/uL (4.8-10.8)
[2021-05-19 07:12] LABS: BUN Creatinine Ratio 18.3 (10-20); Calcium 8.5 mg/dl (8.5-10.1); Chol HDL Ratio 6.2 (0-5); Creatinine Clr Calc Pharmacy 40.3 ml/min; Est GFR (African American) 48.1 ml/min; Est GFR (Non-African American) 41.5 ml/min; Potassium 4.4 mmol/L (3.5-5.1)
[2021-05-19] MEDS ORDERED: ENOXAPARIN INJ 40 MG/0.4 ML SYR SQ SCH (09:00)
[2021-05-19] MEDS ORDERED: CHOLECALCIFEROL 1,000 UNITS 25 MCG TAB PO SCH (09:00)
[2021-05-19] MEDS: allopurinoL 100 MG TAB PO SCH (09:01)
[2021-05-19] MEDS: CEROVITE ADV FORMULA TAB PO SCH (09:02)
[2021-05-19] MEDS: ASCORBIC ACID 500 MG TAB PO SCH (09:02)
[2021-05-19] MEDS: ASPIRIN 81 MG ECTAB PO SCH (09:02)
[2021-05-19] MEDS: FUROSEMIDE 80 MG TAB PO SCH (09:02)
[2021-05-19] MEDS: OMEGA-3 (PURIFIED FISH OIL) 1 GM CAP PO SCH (09:03)
[2021-05-19] MEDS: INSULIN GLARGINE SOLOSTAR 100 UNITS/ML 3 ML PEN SC SCH ×2 (09:08→21:17)
[2021-05-19] MEDS: INSULIN ASPART PER UNIT SC SCH ×4 (09:11→21:23)
--- NOTE | 2021-05-19 10:11 | Pharmacy Report ---
Pharmacy Glycemic Short Note 2 - Date of Service May 19, 2021 - Glycemic Short BSG Results (Last 24 hours): 05/18/21 05/18/21 05/19/21 16:15 22:06 01:55 Glucose 62 L POC Glucose 193 H 193 H 05/19/21 05/19/21 06:08 08:18 Glucose 152 H POC Glucose 177 H OUTPATIENT ANTIDIABETIC REGIMEN: * Novolin 70/30- 75 units BID (does fluctuate based upon BSG) ASSESSMENT: * Ms Mike is an 85 y/o F with a PMH of T2DM who presents with cellulitis. Patient is well known to the glycemic service. * Currently, patient is not on steroids. * Based upon previous history- will start Lantus 12 units BID plus Novolog CF 15 CR 4. * Adjust with BSG trends. PLAN FOR INPATIENT GLYCEMIC CONTROL: * Basal insulin * Lantus 12 units SQ BID * Bolus insulin * NovoLog per scale ACHS or Q6hrs while NPO * Goal Range: Low 110 mg/dL - High 140 mg/dL * Correction Factor: 15 mg/dL/unit * Nutritional / Prandial insulin per carb ratio of 1 unit per 4 grams CHO consumed PLAN FOR DISCHARGE: * HbA1C in 04/2021 was 8.4% which is significantly increased from 7.2% in December of 2020. * Will monitor current insulin needs and make recommendations closer to discharge.
[2021-05-19] MEDS: DAPTOmycin 300 MG in SYRINGE 0 ML IV SCH (15:27)
--- NOTE | 2021-05-19 20:41 | Hospitalist Progress Note ---
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 Bilateral Lower Extremity Cellulitis with Evidence of Venous Stasis Ulcers -Erythema delineated on 05/19 Patient with complicated dermatologic history of the lower extremities, involving venous stasis/lymphedema in the context of previous left knee septic arthritis (Pseudomonas) and developmental dysplasia of the hip; patient also endorses MRSA infection in the past Wound care note from earlier today reviewed: Status post debridement in the clinic, recommending intravenous antibiotics; -start santyl and place on dressings, change daily. Patient does not currently meet criteria for sepsis and does not appear septic on exam. Blood cultures were obtained in the ED, will follow up. Opt to cover for both Pseudomonas and MRSA given complex historycontinue Zosyn initiated in the ER, initiate Dapto for MRSA coverage Await wound culture obtained in ED Will order bilateral simple films of the lower extremities given peripheral neuropathy; ulcers do not appear deep, however given extent of patient's cellulitis/edema, favor to rule out any obvious bony destruction Consult wound care nurse: Appreciate insights, recommendations while here Consult PT/OTmoving forward, patient will likely need to receive lymphedema related therapy and compression stockings when appropriate Patient reporting minimal amounts of pain; Tylenol on board, can consider non- NSAID options if needed (given kidney function) Continue home Lasix 80 mg qAM (2) Lymphedema: Plan: Noted, as above (3) Chronic venous insufficiency: Plan: Noted, as above (4) Gouty arthritis: Plan: No evidence of acute gouty arthritis on my exam. History noted. Continue allopurinol (5) Stage 3b chronic kidney disease: Plan: Baseline creatinine appears to be around 22.3 of the patient's chart -- follows w/ Dr. Bhatt of [facility] [place] [facility] Last echocardiogram noted with LVEF 60 to 65% without significant valvular or pressure abnormalities Continue renal monitoring, avoid NSAIDs/nephrotoxic medication (6) Hypertension: Plan: History noted on chart. Is on Lasix for leg swelling, but otherwise no hypertensive medications Review of nephrology notes reveal that patient was previously on Benicar, but was stopped secondary to LISA Monitor while here (7) Hyperlipidemia: Plan: Noted, continue fish oil while here, not currently on a statin Should consider initiation of moderate to high intensity statin with history of diabetes in outpatient setting LDL at goal. (8) Hypothyroidism: Plan: Noted. Continue levothyroxine (9) Peripheral neuropathy: Plan: Noted in the history of diabetes Will require regular podiatric care once discharged from the hospital for monitoring Diabetes management as below Management of lymphedema, cellulitis as above (10) Vitamin D deficiency: Plan: Noted in setting of CKD Continue supplementation (11) Diabetes mellitus: Plan: With known history of insulin-dependent diabetes -- last A1c 8.4% in April 2021 Utilizes insulin 70/30says approximately 75 twice daily On admission patient found to be mildly hypoglycemic to 64 In the setting of above illness, hypoglycemia on arrival, and somewhat unique insulin regimenwe will place pharmacy consult, appreciate aid/insight/recommendations while here Blood sugar goal: 100-140 Plan: Code: DNR/DNIconfirmed with the patient at bedside Dispo: MedSurg Prophylaxis: hep sq 5000 q8h Diet: Carb consistent Admission and Anticipated Discharge Date Admission Date: May 18, 2021 Subjective Patient reports decreased swelling of her lower extremities. Patient denies any fever, chills, nausea, vomtiing. Review of Systems Review of Systems: All systems reviewed & are unremarkable except as noted in HPI & below Physical Exam Physical Exam: General: well-appearing 85-year-old female no acute distress HEENT: NCAT. - Eyes - Sclera are white, anicteric, and without injection. PERRL. - Mouth - MMM with no tonsillar edema or exudates. - Neck - supple and without LAD. No JVD. Cardiac: Normal rate and regular rhythm; S1 and S2 present with no murmurs, rubs, or gallops. Pulmonary: Good respiratory effort with symmetric expansion of the chest. No use of accessory muscles. Lungs were clear to auscultation bilaterally with no crackles or wheezes. Abdominal: Normoactive bowel sounds. Abdomen was soft, nondistended, and non- tender to palpation. Extremities: decreased eyrthema, erythema is delineated on 05/19. decreased edema. There is also an appreciable superficial ulcer noted superior to the left lateral malleolus, as well as 3 superficial ulcers appreciated on the right posterior calf extending laterally with scant purulent drainage. Capillary refill is under 3 seconds. Sensation is reduced throughout, but grossly intact to light touch. Results & Data Results & Data ([facility]) Vital Signs (Past 12 Hours) Vital Signs Temp Pulse Resp BP Pulse Ox 05/19/21 15:22 37.1 C 94 H 16 133/62 92 05/19/21 08:59 98 H 103/50 L PG Care Time/CCT Total # of Minutes Spent Total Time Spent with Patient: Total time spent is greater than 50% in coordination of care (as documented) at patient's floor/unit and/or counseling patient: Coding Level of Care Code 19423 Subseq Hosp Care Lvl 2 Diagnoses Bilateral lower leg cellulitis L03.116; L03.115 Lymphedema I89.0 Chronic venous insufficiency I87.2 Gouty arthritis M10.9 Stage 3b chronic kidney disease N18.32 Hypertension I10 Hyperlipidemia E78.5 Hypothyroidism E03.9 Peripheral neuropathy G62.9 Vitamin D deficiency E55.9 Diabetes mellitus E11.9 Time Spent (min) 25
[2021-05-19] MEDS: GABAPENTIN 100 MG CAP PO SCH (21:16)
[2021-05-20] MEDS: PIPERACILLIN/TAZOBACTAM 4.5 GM in DEXTROSE 5% 100 ML IV SCH ×2 (02:31→10:14)
[2021-05-20] MEDS: LEVOTHYROXINE SODIUM 75 MCG TABLET PO SCH (05:45)
[2021-05-20] MEDS: HEPARIN SOD 5,000 UNIT/0.5 ML VIAL SQ SCH ×3 (05:46→20:45)
--- NOTE | 2021-05-20 06:33 | Electrocardiogram Report ---
Test Reason : Blood Pressure : / mmHG Vent. Rate : 096 BPM Atrial Rate : 096 BPM P-R Int : 176 ms QRS Dur : 102 ms QT Int : 388 ms P-R-T Axes : 089 -14 032 degrees QTc Int : 491 ms Sinus rhythm with Premature supraventricular complexes Low voltage QRS Prolonged QT Abnormal ECG When compared with ECG of 06-NOV-2020 09:32, QT has lengthened Confirmed by Varghese Buck ([id number]) on 05/20/2021 6:32:36 AM Referred By: REFERRED SELF Confirmed By:Varghese Buck
[2021-05-20] MEDS: FUROSEMIDE 80 MG TAB PO SCH (08:37)
[2021-05-20] MEDS: allopurinoL 100 MG TAB PO SCH (08:37)
[2021-05-20] MEDS: OMEGA-3 (PURIFIED FISH OIL) 1 GM CAP PO SCH (08:37)
[2021-05-20] MEDS: ASPIRIN 81 MG ECTAB PO SCH (08:38)
[2021-05-20] MEDS: ASCORBIC ACID 500 MG TAB PO SCH (08:38)
[2021-05-20] MEDS: CEROVITE ADV FORMULA TAB PO SCH (08:38)
[2021-05-20] MEDS: COLLAGENASE OINT 30 GM TUBE EXT SCH (08:39)
[2021-05-20] MEDS: INSULIN ASPART PER UNIT SC SCH ×4 (08:48→20:52)
[2021-05-20] MEDS: INSULIN GLARGINE SOLOSTAR 100 UNITS/ML 3 ML PEN SC SCH ×2 (08:49→20:47)
[2021-05-20] MEDS ORDERED: diphenhydrAMINE Capsule 25 MG CAP PO PRN (10:57)
[2021-05-20] MEDS: TRIAMCINOLONE ACET 0.1% CR 80 GM TUBE EXT SCH ×2 (12:11→20:49)
[2021-05-20] MEDS: AMMONIUM LACTATE 12% LOTION 225 GM BTL EXT SCH ×2 (12:11→20:48)
--- NOTE | 2021-05-20 14:22 | Hospitalist Progress Note ---
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 at the recommendation of her wound clinic for concerns of bilateral lower extremity cellulitis. Bilateral Lower Extremity Cellulitis with Evidence of Venous Stasis Ulcers Erythema significantly improved from area of demarcation Initially empirically placed on Zosyn and Dapto given underlying history of Pseudomonas and MRSA. Culture data revealing group b strep (pansensitive) and a gram-positive cocci (final sensitivities pending) De-escalate to single agent Dapto until gram-positive cocci organism further identified Follows wound clinic as outpatient with recent debridement -Continue santyl and place on dressings, change daily--> consult wound nurse. appreciate recommendations Blood culture showing no growth Patient does not currently meet criteria for sepsis and does not appear septic on exam. X-rays of the lower extremities done showing no evidence of osseous involvement Consult PT/OTmoving forward, patient will likely need to receive lymphedema related therapy and compression stockings when appropriate Continue home Lasix 80 mg qAM (2) Lymphedema: Plan: Noted, as above (3) Chronic venous insufficiency: Plan: Noted, as above (4) Stage 3b chronic kidney disease: Plan: Baseline creatinine appears to be around 22.3 of the patient's chart -- follows w/ Dr. Bhatt of [facility] [place] [facility] Last echocardiogram noted with LVEF 60 to 65% without significant valvular or pressure abnormalities Continue renal monitoring, avoid NSAIDs/nephrotoxic medication (5) Hypertension: Plan: History noted on chart. Is on Lasix for leg swelling, but otherwise no hypertensive medications Review of nephrology notes reveal that patient was previously on Benicar, but was stopped secondary to LISA Monitor while here (6) Hyperlipidemia: Plan: Noted, continue fish oil while here, not currently on a statin Should consider initiation of moderate to high intensity statin with history of diabetes in outpatient setting LDL at goal but Trigs elevated <300-- strongly encourage dietary changes. Will add Tricor (7) Hypothyroidism: Plan: Noted. Continue levothyroxine (8) Peripheral neuropathy: Plan: Noted in the history of diabetes Will require regular podiatric care once discharged from the hospital for monitoring Diabetes management as below Management of lymphedema, cellulitis as above (9) Vitamin D deficiency: Plan: Noted in setting of CKD Continue supplementation (10) Diabetes mellitus: Plan: With known history of insulin-dependent diabetes -- last A1c 8.4% in April 2021 Utilizes insulin 70/30says approximately 75 twice daily On admission patient found to be mildly hypoglycemic to 64 In the setting of above illness, hypoglycemia on arrival, and somewhat unique insulin regimenpharmacy consulted-- appreciate aid/insight/recommendations while here Blood sugar goal: 100-140 Plan: Code: DNR/DNIconfirmed with the patient at bedside Dispo: MedSurg Prophylaxis: hep sq 5000 q8h Diet: Carb consistent Plan of care discussed with Dr. Gates Admission and Anticipated Discharge Date Admission Date: May 18, 2021 Subjective Patient seen on daily rounds today. Vocalizes no complaints or concerns. Denies fevers, chills, chest pain, shortness of breath, abdominal pain, nausea or vomiting. Nursing voices no complaints or concerns. Review of Systems Review of Systems: All systems reviewed and are unremarkable except as noted in HPI and below Denies fevers, chills, headache, nasal congestion, sore throat, cough, chest pain, shortness of breath, palpitations, orthopnea, PND, abdominal pain, nausea, vomiting, diarrhea, constipation, dysuria, hematuria, frequency, back pain, joint pain or swelling, easy bruising or bleeding, skin lesions or rashes. Physical Exam Physical Exam: General: Resting comfortably in her hospital bed. NAD. HEENT: Head is AT/NC buccal mucosa is moist and pink Neck: No JVD. Negative hepatojugular reflex Cardiac: Distant heart soundslikely due to habitus without M/G/R Lungs: CTA without W/R/R Abdomen: Normoactive X4. Soft and nontender in all quadrants. Extremities: No peripheral clubbing cyanosis or edema Neuro: A&O X4 cranial nerves II through XII are grossly intact no focal neuro deficits Skin: Erythema noted on the posterior aspect of the bilateral arms along with her back in the back of her legs (where the sheets are touching her skin) Psych: Appropriate affect pleasant and cooperative Results & Data Results & Data ([facility]) Vital Signs (Past 12 Hours) Vital Signs Temp Pulse Resp BP Pulse Ox 05/20/21 08:35 136/74 05/20/21 07:16 36.7 C 84 18 138/71 95 Laboratory Results 05/19/21 06:08 05/19/21 06:08 Surface Wound Culture Preliminary 05/20/21-1314 Organism 1 Group B Beta Strep Quantity Few Sens Sensitivities to Follow +MixWound Plus Low Counts of Probable Skin Liz Organism 2 Gram positive cocci Quantity Rare Sens Sensitivities to Follow Grp.B Strp RX M.I.C. --- --------- Ampicillin S 0.12 Azithromycin S <=0.25 Cefepime S <=0.25 Cefotaxime S <=0.25 Ceftriaxone S <=0.25 Chloramphenicol S 4 Clindamycin S <=0.06 Erythromycin S <=0.06 Penicillin S 0.06 Vancomycin S 1 S = SENSITIVE I = INTERMEDIATE R = RESISTANT PG Care Time/CCT Total # of Minutes Spent Total Time Spent with Patient: Total time spent is greater than 50% in coordination of care (as documented) at patient's floor/unit and/or counseling patient: Coding Level of Care Code 74973 Subseq Hosp Care Lvl 2 Diagnoses Bilateral lower leg cellulitis L03.116; L03.115 Lymphedema I89.0 Chronic venous insufficiency I87.2 Stage 3b chronic kidney disease N18.32 Hypertension I10 Hyperlipidemia E78.5 Hypothyroidism E03.9 Peripheral neuropathy G62.9 Vitamin D deficiency E55.9 Diabetes mellitus E11.9
[2021-05-20] MEDS: DAPTOmycin 300 MG in SYRINGE 0 ML IV SCH (15:01)
[2021-05-20] MEDS: GABAPENTIN 100 MG CAP PO SCH (20:44)
[2021-05-21] MEDS: LEVOTHYROXINE SODIUM 75 MCG TABLET PO SCH (05:44)
[2021-05-21] MEDS: HEPARIN SOD 5,000 UNIT/0.5 ML VIAL SQ SCH ×2 (05:44→13:53)
[2021-05-21] MEDS: OMEGA-3 (PURIFIED FISH OIL) 1 GM CAP PO SCH (08:08)
[2021-05-21] MEDS: ASPIRIN 81 MG ECTAB PO SCH (08:08)
[2021-05-21] MEDS: FUROSEMIDE 80 MG TAB PO SCH (08:09)
[2021-05-21] MEDS: CEROVITE ADV FORMULA TAB PO SCH (08:09)
[2021-05-21] MEDS: ASCORBIC ACID 500 MG TAB PO SCH (08:09)
[2021-05-21] MEDS: AMMONIUM LACTATE 12% LOTION 225 GM BTL EXT SCH (08:10)
[2021-05-21] MEDS: allopurinoL 100 MG TAB PO SCH (08:10)
[2021-05-21] MEDS: TRIAMCINOLONE ACET 0.1% CR 80 GM TUBE EXT SCH (08:11)
[2021-05-21] MEDS: COLLAGENASE OINT 30 GM TUBE EXT SCH (08:11)
--- NOTE | 2021-05-21 08:25 | Pharmacy Report ---
Pharmacy Glycemic Short Note 2 - Date of Service May 21, 2021 - Glycemic Short BSG Results (Last 24 hours): 05/20/21 05/20/21 05/20/21 12:13 12:14 17:12 POC Glucose 317 H* 290 H 199 H 05/20/21 05/21/21 20:35 08:10 POC Glucose 221 H 233 H OUTPATIENT ANTIDIABETIC REGIMEN: * Novolin 70/30- 75 units BID (does fluctuate based upon BSG) ASSESSMENT: 05/21/21 * Patient's BSGs yesterday were [phone] mg/dL. Fasting today is 233 mg/dL. * Fasting trending upwards so increase basal by 25% to 20 units BID. * Tighten Novolog as BSGs above goal range. Baseline * Ms Mike is an 85 y/o F with a PMH of T2DM who presents with cellulitis. Patient is well known to the glycemic service. * Currently, patient is not on steroids. * Based upon previous history- will start Lantus 12 units BID plus Novolog CF 15 CR 4. * Adjust with BSG trends. PLAN FOR INPATIENT GLYCEMIC CONTROL: * Basal insulin * Lantus 20 units SQ BID * Bolus insulin * NovoLog per scale ACHS or Q6hrs while NPO * Goal Range: Low 110 mg/dL - High 140 mg/dL * Correction Factor: 12 mg/dL/unit * Nutritional / Prandial insulin per carb ratio of 1 unit per 4 grams CHO consumed PLAN FOR DISCHARGE: * HbA1C in 04/2021 was 8.4% which is significantly increased from 7.2% in December of 2020. * Will monitor current insulin needs and make recommendations closer to discharge.
[2021-05-21] MEDS: INSULIN ASPART PER UNIT SC SCH ×2 (08:41→12:54)
[2021-05-21] MEDS ORDERED: FENOFIBRATE NANOCRYSTALLIZED 145 MG TABLET PO SCH (09:00)
[2021-05-21] MEDS ORDERED: INSULIN GLARGINE SOLOSTAR 100 UNITS/ML 3 ML PEN SC SCH (09:00)
[2021-05-21] MEDS ORDERED: FENOFIBRATE NANOCRYSTALLIZED 48 MG TABLET PO SCH (09:00)
[2021-05-21] MEDS: DAPTOmycin 300 MG in SYRINGE 0 ML IV SCH (13:47)
--- NOTE | 2021-05-21 14:16 | Discharge Summary ---
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 Patient was seen at wound clinic today, where her provider did note that her bilateral lower extremity ulcers with secondary cellulitis required debridement; they recommended referral to the ED and admission for IV antibiotics. She noted to them at that time that she had had significant swelling within her lower extremities over the past 3 years, and over the last several months she has had increased drainage as well as wounds that have been difficult to heal despite [id number] antibiotics. She stated that over the past 2 weeks, there has been increased redness and swelling in both of her legs, associated with pain and moderate drainage. She has also noticed ulcers. She endorses a burning-like sensation that is tolerable. She reports taking Lasix for her legs. Medications were reviewed, which include allopurinol, aspirin, Lasix 80 mg daily, gabapentin, insulin, levothyroxine, vitamins. She endorses difficulty walking with her left leg, which is chronic and secondary to developmental dysplasia of the left hip. No recent changes. She denies any history of tobacco, alcohol, or recreational drug use. She does endorse a history of left knee gouty arthritis as well as infection requiring washout. She endorses history of left hip replacement secondary to developmental dysplasia of the left hip as a child. In the emergency department, patient was found to be mildly hypertensive with heart rates in the 90s to low 100s, normal RR on RA. Afebrile. Weight 104.3 kg (from 99.9 on 05/03). Labs were significant for mild leukocytosis to 10.9, persistent anemia, BUN 26/creatinine 1.3 (baseline appears ~1.3-1.5), BSG 62; normal LFTs, troponin negative. Covid negative. Blood cultures and left-sided wound culture were taken. ECG noted for prolonged QTc 510. She was started on Zosyn. Principal Diagnosis 1. Bilateral cellulitis 2. Venous stasis ulcers bilaterally 3. Chronic lymphedema 4. Venous insufficiency with stasis dermatitis 5. Contact dermatitisbilateral arms/legs 6. Chronic lymphedema Discharge Exam General: Resting comfortably in her hospital bed. NAD. HEENT: Head is AT/NC buccal mucosa is moist and pink Neck: No JVD. Negative hepatojugular reflex Cardiac: Distant heart soundslikely due to habitus without M/G/R Lungs: CTA without W/R/R Abdomen: Normoactive X4. Soft and nontender in all quadrants. Extremities: No peripheral clubbing cyanosis or edema Neuro: A&O X4 cranial nerves II through XII are grossly intact no focal neuro deficits Skin: Erythema noted on the posterior aspect of the bilateral arms along with her back in the back of her legs (where the sheets are touching her skin). Stasis ulcers to the bilateral posterior aspect of the legs. Superimposed cellulitic skin improved. Still with chronic vascular changes/stasis dermatitis and lymphedema Psych: Appropriate affect pleasant and cooperative Discharge Data Allergies Allergy/AdvReac Type Severity Reaction Status Date / Time cefepime Allergy Severe Acute Verified 05/18/21 13:17 interstitial nephritis Sulfa (Sulfonamide Allergy Intermediate BLISTERS Verified 05/18/21 13:17 Antibiotics) Consultations 05/18/21 20:12 ED Decision to Admit Stat 05/21/21 11:13 Consult DYLANG head of quality Routinefor lymphedema management Procedures Performed Gram Stain Final 05/19/21-0758 Gram Stain Result No Epithelial Cells No WBCs Seen No Organisms Seen Surface Wound Culture Final 05/21/21-08 Organism 1 Group B Beta Strep Quantity Few Sens Sensitivities to Follow +MixWound Plus Low Counts of Probable Skin Liz Organism 2 Staphylococcus aureus Quantity Rare Sens Sensitivities to Follow Grp.B Strp S aureus RX M.I.C. RX M.I.C. 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 Bilateral Lower Extremity Cellulitis with Evidence of Venous Stasis Ulcers Erythema significantly improved from area of demarcation Initially empirically placed on Zosyn and Dapto given underlying history of Pseudomonas and MRSA. Culture data revealing group b strep (pansensitive) and a gram-positive cocci (final sensitivities pending) De-escalated to single agent Dapto once culture data showed group b strep and gram-positive cocci Final culture data showing pansensitive group B strep and MSSA. Transition to Augmentin to complete full course Follows wound clinic as outpatient with recent debridement -Continue santyl and place on dressings, change daily-->wound nurse on board. appreciate recommendations. D/C with continued wound care Blood culture showing no growth Patient did not currently meet criteria for sepsis and does not appear septic on exam. X-rays of the lower extremities done showing no evidence of osseous involvement Consult PT/OTmoving forward, patient will likely need to receive lymphedema related therapy and compression stockings when appropriate Continue home Lasix 80 mg qAM (2) Lymphedema: Noted, as above Consult nurse navigator to see if we can get patient some lymphedema management (either by home health or as an outpatient) (3) Chronic venous insufficiency: Noted, as above (4) Stage 3b chronic kidney disease: Baseline creatinine appears to be around 22.3 of the patient's chart -- follows w/ Dr. Bhatt of [facility] Ne[facility] Last echocardiogram noted with LVEF 60 to 65% without significant valvular or pressure abnormalities Continue renal monitoring, avoid NSAIDs/nephrotoxic medication (5) Hypertension: History noted on chart. Is on Lasix for leg swelling, but otherwise no hypertensive medications Review of nephrology notes reveal that patient was previously on Benicar, but was stopped secondary to LISA Waxing and waning accelerated BP but acceptable for age (6) Hyperlipidemia: Noted, continue fish oil while here, not currently on a statin Should consider initiation of moderate to high intensity statin with history of diabetes in outpatient setting LDL at goal but Trigs elevated <300-- strongly encourage dietary changes. Tricor added (7) Hypothyroidism: Noted. Continue levothyroxine (8) Peripheral neuropathy: Noted in the history of diabetes Will require regular podiatric care once discharged from the hospital for monitoring Diabetes management as below Management of lymphedema, cellulitis as above (9) Vitamin D deficiency: Noted in setting of CKD Continue supplementation (10) Diabetes mellitus: With known history of insulin-dependent diabetes -- last A1c 8.4% in April 2021 Utilizes insulin 70/30says approximately 75 twice daily--> continue this upon D/C Did monitor blood sugars and correct via sliding scale with analog in addition to correction dosing while in house Code: DNR/DNIconfirmed with the patient at bedside Discharged home with home health for continued wound care Plan of care discussed with Dr. Gates Total Time Total Time Spent Total Time Spent (In Minutes): 45 minutes including time spent with patient, coordination of care, preparation of documentation Discharge Plan Discharge Items Patient Disposition: Home - Self-Care Reason For Visit: B/L LE CELLULITIS Discharge Diagnosis: 1. ulcer of the legs with superimposed cellulitis (infection) 2. venous stasis and lymphedema 3. contact dermatitis- arms Activity: As commented below Activity Comment: when sitting, keep legs elevated Non-emergency contact: Primary Care Provider Call non-emergency contact if: you have any medication questions and your symptoms worsen Follow-up/Referrals: Pro,Narinder Macedo MD [Primary Care Provider] - Diet: Carb Consistent or DM2 Addtl Attending Provider Instructions: Diet: carb consistent/low carb, low fat/Heart Healthy Activity: as tolerated. Elevate legs as able Recommendations: - complete full course of antibiotics (Augmentin twice a day until completed) - continue with wound care- to the ulcers: apply Santyl and cover with ABD and roll gauze. Change Daily. - to the rest of the legs, cover with triamcinolone and then the Lac-Hydrin (avoid both of these to the ulcers). - I recommend that you start lymphedema mgmt (nurse navigator to be in contact) unless home health can help facilitate - note that your cholesterol was checked while in house and given your high triglyceride numbers, you have been started on Tricor. Advise dietary changes and weight loss - Follow up with PCP: 7-10 days. - Return to the ED for new or worsening symptoms Pending Studies at Discharge: No Stand-Alone Forms: [facility] Medications and DC Order Prescriptions: New Santyl 250 unit/gram Ointment 1 applic EXT DAILY Qty: 90 RF: 0 fenofibrate nanocrystallized 48 mg Tablet 48 mg PO DAILY Qty: 30 RF: 0 triamcinolone acetonide 0.1 % Cream 1 applic EXT BID Qty: 60 RF: 0 Lac-Hydrin Five 5 % Lotion 1 g EXT BID Qty: 90 RF: 0 amoxicillin-pot clavulanate 875-125 mg tablet 1 tab PO BID Qty: 14 RF: 0 Continued furosemide 80 mg tablet 80 mg PO QAM Qty: 90 RF: 3 gabapentin 100 mg capsule 200 mg PO HS Qty: 180 RF: 3 levothyroxine 75 mcg tablet 75 mcg PO QAM Qty: 90 RF: 3 allopurinol 100 mg tablet 200 mg PO DAILY Qty: 180 RF: 3 insulin NPH and regular human 100 unit/mL (70-30) suspension See Rx Instructions SQ BID Qty: 10 RF: 5 cholecalciferol (vitamin D3) [Vitamin D3] 2,000 unit capsule 2,000 unit PO 3XWK RF: 0 Multi-Vitamin HP/Minerals capsule 1 cap PO QAM RF: 0 omega [id number]-[id number]-fish oil [Fish Oil] 1,000 mg (120 mg-180 mg) capsule 1 cap PO QAM RF: 0 aspirin [Aspirin Low Dose] 81 mg tablet,delayed release (DR/EC) 81 mg PO QAM RF: 0 ascorbic acid (vitamin C) [Vitamin C] 500 mg Tablet 500 mg PO DAILY RF: 0 acetaminophen [Tylenol Extra Strength] 500 mg Tablet 1,000 mg PO Q6H PRN (Reason: Pain) RF: 0 Anti-Itch(diphenhyd) with Zinc 2-0.1 % Cream 1 applic EXT Q2H PRN (Reason: itching) Qty: 15 RF: 0 Discharge Orders: Discharge Order (Routine); Ordered 05/21/21 Ordered By: Susan Skinner/Other Patient Handouts: Preventing Deep Vein Thrombosis, Wound Infection Tx Admission Data Admit Date/Time: 05/18/21 20:34 Attending Provider: Mario Gates Admit Provider: Cam Bhatt Primary Care Provider: Narinder Caldwell Other Providers: Rowena Garcia ; [facility],Home Healthcare Other Interventions: Discharge Summary Assessment (RN) Last Done: 05/21/21 13:56 Supervising Physician Co-Signing Physician Notes I supervised Susan Londono PA-C on the care of this patient. I interviewed and examined the patient independently of her. The plan is as written in her note except for any following changes/exceptions: None Doing well today. Seen while bandages being put on prior to discharge. Legs still with venous stasis changes as to be expected, but no erythema or warm that would indicate ongoing infection. Home with oral abx. Coding Level of Care Code D/C DAY MANAGEMENT >30 MINS Diagnoses Bilateral lower leg cellulitis L03.116; L03.115 Lymphedema I89.0 Chronic venous insufficiency I87.2 Stage 3b chronic kidney disease N18.32 Hypertension I10 Hyperlipidemia E78.5 Hypothyroidism E03.9 Peripheral neuropathy G62.9 Vitamin D deficiency E55.9 Diabetes mellitus E11.9
== END 2021-05-21 14:49 | disposition home or self-care (01) ==
LOC: ED 14:55 → SUATTDRO 20:34 → INTOOBSV 20:34 → 3N 20:34